=== PATIENT | female | born 1955 | race Caucasian/White ===

== ENCOUNTER 2017-09-27 09:08 | Day surgery (SDC) | payer OTHER, SELFPAY ==
[2017-09-27 09:33] VITALS: BP 113/77; PULSE 79; RESP 16; TEMP 37.4; O2SAT 100; BMI 22.4
[2017-09-27] MEDS: Ciprofloxacin 0.3% 2.5ml Bottle 1 DRP (10:35)
--- NOTE | 2017-09-27 11:04 | DCINST_ITS ---
Discharge Diet: No Restrictions Discharge Activity: Return to Normal Activity Additional Activity Instructions:: Keep ears dry. Allergies/Adverse Reactions: Allergies amoxicillin Adverse Reaction (Verified 09/20/17 09:30) Nausea doxycycline Adverse Reaction (Verified 10/20/15 16:50) Other erythromycin base [Erythromycin Base] Adverse Reaction (Verified 10/20/15 16:50) Nausea hydrocodone bitartrate [From Vicodin] Adverse Reaction (Verified 10/20/15 16:50) Vomiting Sulfa (Sulfonamide Antibiotics) Adverse Reaction (Verified 10/20/15 16:50) Nausea Medications to take at Discharge Calcium Carb/Vitamin D [Caltrate-600 With Vit D Tab] 1 tab PO BIDCM 03/14/13 Fluticasone 0.05% [Flonase Nasal [place]] 2 spray NASAL DAILY 03/14/13 Omeprazole [Prilosec] 20 mg PO DAILY 03/14/13 Montelukast [Singulair] 10 mg PO DAILY 09/23/14 Cholecalciferol (Vitamin D3) [Vitamin D3] 2,000 unit PO DAILY 09/20/17 Primary Care Physician: Vinny Mancilla MD [Primary Care Provider] - Please Follow Up With: Donnie Lindquist MD - [phone] When: 1-2 weeks.
[2017-09-27 11:14] VITALS: BP 113/77; BP 95/72; PULSE 77; RESP 16; TEMP 36.4; O2SAT 100
[2017-09-27 11:15] VITALS: BP 100/74; BP 113/77; PULSE 75; RESP 16; O2SAT 100
[2017-09-27 11:30] VITALS: BP 103/71; BP 113/77; PULSE 77; RESP 16; O2SAT 98
[2017-09-27 11:34] VITALS: BP 107/75; BP 113/77; PULSE 74; RESP 16; TEMP 36.6; O2SAT 98
--- NOTE | 2017-09-27 12:43 | PCM.OP.BLANK ---
Operative Report Date of Procedure: 09/27/17 Preoperative diagnosis: Chronic serous otitis media Postoperative diagnosis: Same Procedure: Right myringotomy with tympanostomy tube placement Anesthesia General per Kylah Erickson CRNA Details of procedure: The patient was transported to the operating room remained on the amatory care cart in the supine position. After the administration of adequate general anesthesia using mask and IV medication, the right ear was examined with the microscope. Obvious serous effusion was present. Upon myringotomy in the anterior inferior aspect fluid was encountered and evacuated. Some ciprofloxacin was rinsed through the middle ear after which a parasol tube was placed uneventfully. This point the procedure was terminated. Patient tolerated the procedure well, did not sustain any intraoperative anesthetic or surgical complication, was taken of the PACU where she was noted to be in satisfactory condition. Donnie Lindquist MD
== END 2017-09-27 12:07 | disposition home or self-care (01) ==
LOC: SDC 09:09 → AC 09:11
PROVIDERS: Family Provider Family Medicine; PCP Family Medicine; Visit Provider Otolaryngology Otolaryngology/Facial Plastic Surgery
PROC: (CPT 69436; principal; 2017-09-27 10:35)
DX: H65.21 Chronic serous otitis media, right ear (principal); H69.81 Other specified disorders of Eustachian tube, right ear; J30.1 Allergic rhinitis due to pollen; J30.81 Allergic rhinitis due to animal (cat) (dog) hair and dander; J30.89 Other allergic rhinitis; K21.9 Gastro-esophageal reflux disease without esophagitis; Z86.718 Personal history of other venous thrombosis and embolism; N18.3 Chronic kidney disease, stage 3 (moderate)
CPT/HCPCS: 00126; 69436; J7120; J2405

== ENCOUNTER 2018-01-07 06:15 | Day surgery (SDC) | payer OTHER, SELFPAY ==
--- NOTE | 2018-01-07 | IMM_PTH ---
PATIENT: NETO CARDOZO LOC: EN U#:[id number] AGE/SX: 62/F ROOM: RE01/07/[address]: Dr. Forrest Hernandez MD : 1955 BED: DIS: 01/07/2018 SPEC #: [id number] RECD: 01/08/18 13:04 STATUS: JEFE YOUNG #: [id number] JOSH: 01/07/18 00:[address]: Forrest Hernandez DEPT: IMMUNOHISTOCHEMISTRY RECD BY: Jenny Bustos ENTERED: 01/08/18 13:04 SP TYPE: IMMUNO OTHR DR: Dr. Vinny Mancilla MD Tissues: B - Stomach, NOS Procedures: H Pylori (initial) PHYSICIAN & INSTITUTION [place] [id number] SPECIMEN INFORMATION: Tissue Source: B ? Polyp of stomach Clinical Info: GERD, history of colon polyps Specimen Number: [id number] CPT code: 79733 METHODOLOGY: Deparaffinized sections of prefer/formalin-fixed tissue or PAP/DQ stained slides are incubated with monoclonal/polyclonal antibodies/oligonucleotide probes. Localization is made via biotin free immunoperoxidase method. Appropriate controls are performed and reacted as expected. Results on target cell population are indicated in the following table: RESULTS: ANTIBODY / CLONE RESULT Block B H Pylori (polyclonal) negative These tests were developed and their performance characteristics determined by [facility]. They may not have been cleared or approved by the U.S. Food and Drug Administration. The FDA has determined that such clearance or approval is not necessary. INTERPRETATION: B. Polyp of stomach, biopsy: Negative for Helicobacter pylori organisms. SJ:rocio 01/09/18
[2018-01-07 06:27] VITALS: BP 115/70; PULSE 92; RESP 14; TEMP 37.2; O2SAT 99; BMI 21.5
--- NOTE | 2018-01-07 07:30 | EGD_PTH ---
PATIENT: NETO CARDOZO LOC: EN U#:[id number] AGE/SX: 62/F ROOM: RE01/07/[address]: Dr. Forrest Hernandez MD : 1955 BED: DIS: 01/07/2018 SPEC #: [id number] RECD: 01/07/18 14:21 STATUS: JEFE YOUNG #: [id number] JOSH: 01/07/18 07:[address]: Forrest Hernandez DEPT: SURGICAL PATHOLOGY RECD BY: Cornelius Bennett ENTERED: 01/07/18 14:46 SP TYPE: EGD [facility] DR: Dr. Vinny Mancilla MD Tissues: A - Small intestine biopsy B - Gastric mucous membrane C - Transverse colon Procedures: Surgery Specimen Level IV HEADER OPERATION: [place] [place] DIAGNOSIS: Gastroesophageal reflux disease, history of colon polyps TISSUE SUBMITTED: A. Biopsy small intestine, B. Polyp of stomach, C. Polyp distal transverse colon MICROSCOPIC DIAGNOSIS A. Small intestine, biopsy: Fragment of small intestinal mucosa, no pathologic diagnosis. B. Polyp of stomach, biopsy: Moderate gastritis. C. Polyp distal transverse colon, biopsy: Tubular adenoma. SJ:rocio 01/08/18 COMMENT B. The results of immunohistochemistry for Helicobacter pylori will be reported separately ([id number]). MICROSCOPIC DESCRIPTION Slides are reviewed. B. The specimen shows fragments of gastric mucosa with chronic inflammatory cell infiltrates in the lamina propria consisting of lymphocytes and plasma cells, consistent with moderate chronic gastritis. GROSS DESCRIPTION A - Received in fixative is one container labeled with the patient's name and designated small bowel biopsy. The specimen consists of one irregular fragment of light fajardo soft tissue that measures 0.5 x 0.3 x 0.1 cm. The specimen is totally submitted in one cassette. B - Received in fixative is one container labeled with the patient's name and designated polyp of stomach. The specimen consists of one irregular fragment of light fajardo soft tissue that measures 0.5 x 0.3 x 0.1 cm. The specimen is totally submitted in one cassette. C - Received in fixative is one container labeled with the patient's name and designated distal transverse colon polyp. The specimen consists of one irregular fragment of light fajardo soft tissue that measures 0.3 x 0.3 x 0.1 cm. The specimen is totally submitted in one cassette. / AM:rocio 01/07/18 TC:1 CPT: 00966 x3
--- NOTE | 2018-01-07 08:01 | PCM.OPRPT ---
Problem List (1) Gastro-esophageal reflux disease without esophagitis Status: Acute (2) History of colonic polyps Status: Acute Report of Operation Date of Procedure: 01/07/18 Pre-Operative Diagnosis: K 21.9 gastroesophageal reflux disease without esophagitis. Z 86.010 history of colonic polyps Post-Operative Diagnosis: Same Surgery/Procedure Performed:: 36648 esophagogastroduodenoscopy with biopsy. 126[address] colonoscopy with snare polypectomy Type of Anesthesia:: MAC Anesthesiologist: Charles Calderon Description of Procedure: Patient was brought into the endoscopy suite. Back of her throat was sprayed with benzocaine spray. Bite-block was placed. She was placed in the left lateral Q's position. Graded anesthesia was given. Scope was inserted in the back of the oropharynx and directed down through the esophagus into the stomach and into the duodenum without difficulty operative findings: 1. Duodenum: Normal appearance no mass lesion biopsy for celiac sprue was performed. 2. Stomach: Normal appearance no mass lesions small polyp was identified in the prepyloric area was removed with biopsy forceps. Rest of the stomach appeared normal there is no signs of erythema no signs of ulcers. 3. Esophagus: Normal appearance no mass lesions Z line was at 37 cm and was normal there was no esophagitis. Colonoscope was inserted into the rectum directed through the sigmoid colon, descending colon, transverse colon, ascending colon tablet to the cecum without difficulty operative findings: 1. Cecum: Normal appearance no mass lesions normal ileocecal valve. 2. Ascending colon: Normal appearance no mass lesions. 3. Transverse colon: Normal appearance no mass lesions. In the distal transverse colon was a small polyp which was removed with snare cautery technique and brought back to the channel of the scope. 5. Sigmoid colon: Normal appearance no mass lesions. 6. Rectum: Normal appearance no mass lesions few internal hemorrhoids were identified. The scope was withdrawn and digital rectal exam was performed showing no masses within the anus. Patient will need to have another colonoscopy in 3 years. - Admit VTE Documentation VTE Present on Admission: No VTE Mechan Device Prophylaxis: None VTE Pharm Prophylaxis ordered?: No Reason prophylaxis not ordered:: Treatment Not Indicated
[2018-01-07 08:04] VITALS: BP 115/70; BP 91/65; PULSE 85; RESP 18; TEMP 36.8; O2SAT 100
[2018-01-07 08:10] VITALS: BP 115/70; BP 98/75; PULSE 85; RESP 18; O2SAT 100
[2018-01-07 08:15] VITALS: BP 115/70; BP 97/67; PULSE 82; RESP 18; O2SAT 99
[2018-01-07 08:20] VITALS: BP 105/77; BP 115/70; PULSE 73; RESP 18; TEMP 36.7; O2SAT 100
[2018-01-07 08:45] VITALS: BP 115/70
== END 2018-01-07 08:49 | disposition home or self-care (01) ==
LOC: EN 06:15 → AC 06:16
PROVIDERS: Family Provider Family Medicine; PCP Family Medicine; Visit Provider Surgery
PROC: 0DJD8ZZ Inspection of Lower Intestinal Tract, Via Natural or Artificial Opening Endoscopic (ICD-10-PCS; CPT 45378; principal; 2018-01-07 07:25)
DX: D12.3 Benign neoplasm of transverse colon (principal); K29.70 Gastritis, unspecified, without bleeding; K21.9 Gastro-esophageal reflux disease without esophagitis; K64.8 Other hemorrhoids; Z86.010 Personal history of colon polyps; I10 Essential (primary) hypertension
CPT/HCPCS: 43239; 45385; 88305; 88342; J7120

== ENCOUNTER 2018-12-12 08:14 | Day surgery (SDC) | payer OTHER, SELFPAY ==
[2018-12-12 08:35] VITALS: BP 114/81; PULSE 87; RESP 16; TEMP 36.9; O2SAT 99; BMI 23.1
[2018-12-12] MEDS: Ciprofloxacin 0.3% 2.5ml Bottle 1 DRP (10:47)
--- NOTE | 2018-12-12 10:51 | DCINST_ITS ---
Discharge Diet: No Restrictions Discharge Activity: Return to Normal Activity Additional Activity Instructions:: Keep ears dry. Allergies/Adverse Reactions: Allergies amoxicillin Adverse Reaction (Verified 12/04/18 13:04) Nausea doxycycline Adverse Reaction (Verified 12/04/18 13:04) Other erythromycin base [Erythromycin Base] Adverse Reaction (Verified 12/04/18 13:04) Nausea hydrocodone bitartrate [From Vicodin] Adverse Reaction (Verified 12/04/18 13:04) Vomiting Sulfa (Sulfonamide Antibiotics) Adverse Reaction (Verified 12/04/18 13:04) Nausea Medications to take at Discharge Calcium Carb/Vitamin D [Caltrate-600 With Vit D Tab] 1 tab PO BIDCM 03/14/13 Fluticasone 0.05% [Flonase Nasal [place]] 2 spray NASAL DAILY 03/14/13 Omeprazole [Prilosec] 20 mg PO DAILY 03/14/13 Montelukast [Singulair] 10 mg PO DAILY 09/23/14 Cholecalciferol (Vitamin D3) [Vitamin D3] 2,000 unit PO DAILY 09/20/17 Primary Care Physician: Vinny Mancilla MD [Primary Care Provider] - Test Results: Test results from this visit will be discussed in further detail at your follow- up appointment, if applicable. Please Follow Up With: Donnie Lindquist MD - [phone] When: 1-2 weeks.
[2018-12-12 10:55] VITALS: BP 114/81; BP 119/84; PULSE 82; RESP 16; TEMP 36.8; O2SAT 97
[2018-12-12 11:00] VITALS: BP 111/83; BP 114/81; PULSE 76; RESP 16; O2SAT 92
[2018-12-12 11:15] VITALS: BP 114/81; BP 124/71; PULSE 79; RESP 16; O2SAT 98
[2018-12-12 11:18] VITALS: BP 114/81; BP 123/83; PULSE 84; RESP 16; O2SAT 100
[2018-12-12 11:40] VITALS: BP 114/81
--- NOTE | 2018-12-12 12:33 | OP.PCM_ITS ---
Report of Operation Date of Procedure: 12/12/18 Pre-Operative Diagnosis: Chronic eustachian tube dysfunction with recurrent acute otitis media/serous otitis media Post-Operative Diagnosis: Same Surgery/Procedure Performed:: Bilateral myringotomy with T-type tympanostomy t ube placement Type of Anesthesia:: General - Mask administration Anesthesiologist: Duc Bailey CRNA Description of Procedure: The patient was transported to the operating room and placed on the OR table in the supine position. After the administration of adequate general mask anesthesia the patient was appropriately positioned and the operating room microscope was utilized to examine the left ear. Previously placed Yip tube was in the canal and was removed. The drum was mildly retracted but no fluid was evident at this time. A myringotomy was created in the anterior inferior aspect. Ciprofloxacin drops were rinsed through the middle ear after which a T- type tube was placed uneventfully. Attention was then directed to the right ear which was examined and treated in similar fashion. In contrast the right ear was notable for serous effusion. Myringotomy was created in the anterior in ferior aspect. After fluid was evacuated ciprofloxacin drops were rinsed through the middle ear and a T-type tube was placed. At this point the procedure was terminated. Patient tolerated the procedure well, did not sustain any intraoperative anesthetic or surgical complication, was taken to the PACU where she was noted to be in satisfactory condition. Donnie Lindquist MD
== END 2018-12-12 11:57 | disposition home or self-care (01) ==
LOC: SDC 08:15 → AC 08:17
PROVIDERS: Family Provider Family Medicine; PCP Family Medicine; Referring Provider Otolaryngology Otolaryngology/Facial Plastic Surgery; Visit Provider Otolaryngology Otolaryngology/Facial Plastic Surgery
PROC: (CPT 69436; principal; 2018-12-12 09:45)
DX: H69.83 Other specified disorders of Eustachian tube, bilateral (principal); H65.21 Chronic serous otitis media, right ear; K21.9 Gastro-esophageal reflux disease without esophagitis; N18.3 Chronic kidney disease, stage 3 (moderate); Z86.718 Personal history of other venous thrombosis and embolism
CPT/HCPCS: 00126; 69436

== ENCOUNTER 2020-08-05 12:14 | Outpatient (RCR) | payer MEDICARE, OTHER, SELFPAY ==
[2020-08-05] MEDS: COVID-19 VACC, MRNA(PFIZER)/PF 30 MCG/0.3 ML SYRINGE IM (16:51)
[2020-08-26] MEDS: COVID-19 VACC, MRNA(PFIZER)/PF 30 MCG/0.3 ML SYRINGE IM (16:30)
== END 2020-11-09 23:59 ==
LOC: IMMUN 12:14
PROVIDERS: PCP Family Medicine; Visit Provider Family Medicine
DX: Z23 Encounter for immunization (principal)
CPT/HCPCS: 0001A; 0002A; 91300

== ENCOUNTER → 2021-03-30 16:27 | Outpatient (CLI) | payer MEDICARE, OTHER, SELFPAY ==
[2021-03-30 18:10] LABS: Ferritin 42 ng/mL (8-252); Iron 60 ug/dL (50-170); Iron Binding Capacity,Total 288 ug/dL (250-450); PERCENT IRON SATURATION 20.8 % (15.0-55.0)
== END ==
PROVIDERS: PCP Family Medicine; Visit Provider Internal Medicine Nephrology
DX: D64.9 Anemia, unspecified (principal)
CPT/HCPCS: 36415; 82728; 83540; 83550

== ENCOUNTER → 2021-11-17 | Outpatient (CLI) | payer MEDICARE, OTHER, SELFPAY ==
[2021-11-17 13:09] LABS: Hematocrit 37.1 % (37-47); Hemoglobin 11.9 g/dL (12.0-15.0); Mean Corp Hgb Conc 32.1 g/dL (32-36); Mean Corpuscular Volume 93.5 fL (81-99); Mean Platelet Vol. 9.9 fl (6.2-12.0); Platelet Count 271 K/mm3 (150-450); RBC Distribution Width CV 13.1 % (11.6-14.6); RBC Distribution Width SD 44.6 fl (35.1-43.9); Red Blood Count 3.97 M/mm3 (4.2-5.4); White Blood Count 8.3 K/mm3 (4.4-11.0)
[2021-11-17 13:37] LABS: Albumin, Serum 3.4 g/dL (3.2-5.0); BUN 21 mg/dL (7-18); BUN/Creat Ratio 15.3 RATIO (10-20); Calcium,Total 9.2 mg/dL (8.5-10.1); Chloride 107 mmol/L (98-107); Creatinine, Serum 1.37 mg/dL (0.55-1.02); EST Glomerular Filtration Rate 41 mL/min (>60); Est Glom Filt Rate - Afr Amer 49 mL/min (>60); Glucose 91 mg/dL (74-106); Phosphorus 4.3 mg/dL (2.5-4.9); Sodium Level 138 mmol/L (136-145)
== END | disposition home or self-care (01) ==
LOC: LAB 12:29
PROVIDERS: PCP Family Medicine; Referring Provider Internal Medicine Nephrology; Visit Provider Internal Medicine Nephrology
DX: N18.30 Chronic kidney disease, stage 3 unspecified (principal); D64.9 Anemia, unspecified
CPT/HCPCS: 36415; 80069; 85027

== ENCOUNTER → 2022-03-17 | Outpatient (CLI) | payer MEDICARE, OTHER, SELFPAY ==
[2022-03-20 08:51] LABS: Syphilis Antibodies Non-reactive
[2022-03-21 13:26] LABS: B. pertussis IgG 1.99 index (0.00-0.94)
[2022-03-21 13:27] LABS: B. pertussis IgM 3.4 index (0.0-0.9)
[2022-03-23 11:02] LABS: Lyme Ab Screen Interpretation REF LAB
[2022-03-26 15:39] LABS: Lyme Scn Total Ab w/Rflx Negative (Negative)
== END | disposition home or self-care (01) ==
LOC: MTLAB 16:48
PROVIDERS: PCP Family Medicine; Referring Provider Physician Assistant; Visit Provider Physician Assistant
DX: L82.1 Other seborrheic keratosis (principal); L81.4 Other melanin hyperpigmentation; D18.01 Hemangioma of skin and subcutaneous tissue; L57.8 Other skin changes due to chronic exposure to nonionizing radiation; L30.9 Dermatitis, unspecified; D48.5 Neoplasm of uncertain behavior of skin; L90.5 Scar conditions and fibrosis of skin; L72.0 Epidermal cyst; I83.93 Asymptomatic varicose veins of bilateral lower extremities; Z71.89 Other specified counseling
CPT/HCPCS: 36415; 86618; 86780

== ENCOUNTER → 2022-11-22 | Outpatient (CLI) | payer MEDICARE, OTHER, SELFPAY ==
[2022-11-22 07:11] LABS: Hematocrit 39.4 % (37-47); Hemoglobin 12.2 g/dL (12.0-15.0); Mean Corpuscular Volume 93.6 fL (81-99); Mean Platelet Vol. 9.9 fl (6.2-12.0); Platelet Count 296 K/mm3 (150-450); RBC Distribution Width CV 14.8 % (11.6-14.6); RBC Distribution Width SD 51.3 fl (35.1-43.9); Red Blood Count 4.21 M/mm3 (4.2-5.4); White Blood Count 5.7 K/mm3 (4.4-11.0)
[2022-11-22 07:49] LABS: Albumin, Serum 3.5 g/dL (3.2-5.0); BUN 13 mg/dL (7-18); BUN/Creat Ratio 9.6 RATIO (10-20); Calcium,Total 9.6 mg/dL (8.5-10.1); Chloride 108 mmol/L (98-107); Creatinine, Serum 1.35 mg/dL (0.55-1.02); EST Glomerular Filtration Rate 41 mL/min (>60); Est Glom Filt Rate - Afr Amer 50 mL/min (>60); Ferritin 35 ng/mL (8-252); Glucose 84 mg/dL (74-106); Iron 71 ug/dL (50-170); Iron Binding Capacity,Total 315 ug/dL (250-450); Phosphorus 4.1 mg/dL (2.5-4.9); Potassium 3.9 mmol/L (3.5-5.1); Sodium Level 139 mmol/L (136-145)
== END | disposition home or self-care (01) ==
LOC: LAB 06:15
PROVIDERS: PCP Family Medicine; Referring Provider Internal Medicine Nephrology; Visit Provider Internal Medicine Nephrology
DX: N18.30 Chronic kidney disease, stage 3 unspecified (principal); D50.9 Iron deficiency anemia, unspecified
CPT/HCPCS: 36415; 80069; 82728; 83540; 83550; 85027

== ENCOUNTER → 2022-12-15 | Outpatient (CLI) | payer MEDICARE, OTHER, SELFPAY ==
--- NOTE | 2022-12-15 06:55 | EKG12_ITS ---
Test Reason : PREOP Blood Pressure : / mmHG Vent. Rate : 082 BPM Atrial Rate : 082 BPM P-R Int : 162 ms QRS Dur : 102 ms QT Int : 388 ms P-R-T Axes : 040 -48 077 degrees QTc Int : 453 ms Normal sinus rhythm Left axis deviation Left ventricular hypertrophy with repolarization abnormality Abnormal ECG Confirmed by EMMANUEL SINGLETARY, LOUANN ([id number]), writer editor YESSENIA FRANK ([id number]) on 12/15/2022 12:55:35 PM Referred By: Cole Davenport Confirmed By:LOUANN BENITEZ MD
[2022-12-15 07:35] LABS: Hematocrit 37.4 % (37-47); Hemoglobin 11.8 g/dL (12.0-15.0); Mean Corp Hgb Conc 31.6 g/dL (32-36); Mean Corpuscular Hgb 29.5 pg (27.0-32.0); Mean Corpuscular Volume 93.5 fL (81-99); Mean Platelet Vol. 9.8 fl (6.2-12.0); Platelet Count 246 K/mm3 (150-450); RBC Distribution Width CV 14.8 % (11.6-14.6); RBC Distribution Width SD 51.1 fl (35.1-43.9); White Blood Count 6.3 K/mm3 (4.4-11.0)
[2022-12-15 08:10] LABS: Anion Gap 3 (5-15); BUN 28 mg/dL (7-18); Chloride 110 mmol/L (98-107); Creatinine, Serum 1.47 mg/dL (0.55-1.02); EST Glomerular Filtration Rate 38 mL/min (>60); Est Glom Filt Rate - Afr Amer 45 mL/min (>60); Glucose 92 mg/dL (74-106); Potassium 3.8 mmol/L (3.5-5.1); Sodium Level 139 mmol/L (136-145)
== END | disposition home or self-care (01) ==
LOC: PSN 06:54
PROVIDERS: PCP Family Medicine; Referring Provider Otolaryngology; Visit Provider Otolaryngology
DX: Z01.818 Encounter for other preprocedural examination (principal)
CPT/HCPCS: 36415; 80048; 85027; 93005

== ENCOUNTER 2023-05-24 20:02 | Inpatient (IN) | payer MEDICARE, OTHER, SELFPAY ==
[2023-05-24] VITALS (7 sets, daily range): BP systolic 98–108; BP diastolic 60–69; PULSE 90–114; RESP 18–24; TEMP 36.6; O2SAT 87–93; BMI 22.8
--- NOTE | 2023-05-24 20:05 | EKG12_ITS ---
Test Reason : SOB Blood Pressure : / mmHG Vent. Rate : 094 BPM Atrial Rate : 094 BPM P-R Int : 158 ms QRS Dur : 126 ms QT Int : 384 ms P-R-T Axes : 019 -47 092 degrees QTc Int : 480 ms Normal sinus rhythm Left axis deviation Left ventricular hypertrophy with QRS widening and repolarization abnormality ( R in aVL , Gautam pr oduct ) Abnormal ECG Confirmed by EMMANUEL SINGLETARY, LOUANN ([id number]), copy editor YESSENIA FRANK ([id number]) on 05/25/2023 2:07:52 PM Referred By: Confirmed By:LOUANN BENITEZ MD
--- NOTE | 2023-05-24 20:14 | RAD_ITS ---
INDICATION: SOB EXAMINATION/TECHNIQUE: X-RAY - XR Chest 1 View COMPARISON: October 20, 2015 FINDINGS: LINES/DEVICES: None. LUNGS: Mild basilar infiltrate/atelectasis bilaterally, left more than right. No pneumothorax. MEDIASTINUM AND CARDIOVASCULAR STRUCTURES: Cardiac silhouette not enlarged. Central airways and mediastinal contour are unremarkable. BONES AND SOFT TISSUES: Unremarkable. RAD/Chest 1 View (Portable) IMPRESSION: Mild basilar infiltrate/atelectasis bilaterally, left more than right. Electronically Signed: Xander Fraire DO at 20:31 EST Reading Location ID and State: [facility] / [place] Tel [phone], Service support ,
[2023-05-24 20:55] LABS: Hematocrit 34.3 % (37-47); Hemoglobin 11.5 g/dL (12.0-15.0); Mean Corp Hgb Conc 33.5 g/dL (32-36); Mean Corpuscular Hgb 28.8 pg (27.0-32.0); Mean Platelet Vol. 10.2 fl (6.2-12.0); POSITIVE COUNT YES; POSITIVE MORPHOLOGY YES; Platelet Count 234 K/mm3 (150-450); RBC Distribution Width CV 14.1 % (11.6-14.6); RBC Distribution Width SD 44.2 fl (35.1-43.9); Red Blood Count 3.99 M/mm3 (4.2-5.4)
[2023-05-24 21:19] LABS: Anion Gap 8 (5-15); BUN 23 mg/dL (7-18); BUN/Creat Ratio 11.8 RATIO (10-20); Calcium,Total 8.8 mg/dL (8.5-10.1); Chloride 98 mmol/L (98-107); Creatinine, Serum 1.95 mg/dL (0.55-1.02); EST Glomerular Filtration Rate 27 mL/min (>60); Est Glom Filt Rate - Afr Amer 33 mL/min (>60); Estimated Creatinine Clearance 25.49 ml/min; Glucose 108 mg/dL (74-106); Sodium Level 128 mmol/L (136-145); Troponin-I HS 25 pg/mL (3.0-54.0)
[2023-05-24 21:48] LABS: Differential Indicated MANUAL DIFF; Lymphocyte 6 % (19-41); Monocyte 14 % (0-10); Neutrophil-Band 10 % (0-5); Neutrophil-Segmented 70 % (47-70)
[2023-05-24 21:49] LABS: Absolute Lymphocyte Count 0.78 X10^3/uL (0.83-4.51); Absolute Neutrophil Count 10.4 X10^3/uL (2.0-7.7)
--- NOTE | 2023-05-24 22:23 | ED.RN ---
2040 repeat pulse ox 92 percent.
--- NOTE | 2023-05-24 22:27 | ED.VIS.DYS ---
HPI History of Present Illness Chief Complaint: Shortness of Breath Informant: patient Onset/Context/Timing Onset: Days (5) Timing: Continuous Quality: Positive for Dyspnea on exertion Worsened by: Exertion Relieved by: Rest Associated Symptoms cough; Negative for rhinorrhea, post nasal drip, ear pain, fever, sore throat, chills, clear sputum, white sputum, yellow sputum or green sputum Chest Pain: Positive for None Narrative Narrative: Patient presents with shortness of breath that has been getting worse over the last 5 days. Patient states it is gradually getting worse. Patient states her breathing is worse with any exertion. Patient states she is having difficulty walking from the kitchen to the living room without having to stop and catch her breath. Patient admits to a cough but denies any sputum production. Patient denies any fevers or chills. Patient denies any sore throat or rhinorrhea. Patient denies any chest pain. Patient does admit to some nausea but denies any vomiting. PE Risk Factors: Negative for Cancer, OCP + Smoking + > 35, Prior DVT or PE, Recent immobilization, Recent surgery or Recent travel [facility] Medical History (Updated 05/25/23 @ 02:[address] Steve Woods, DO) GERD (gastroesophageal reflux disease) Hemorrhoid HTN (hypertension) Mixed hyperlipidemia Osteoarthritis Sjogren's disease Home Medications calcium carbonate 600 mg-vitamin D3 20 mcg (800 unit) tablet 1 tab PO BIDCM 03/14/13 [History Last Taken 09/26/17] fluticasone propionate 50 mcg/actuation nasal spray,suspension 2 spray NASAL DAILY 03/14/13 [History Last Taken 09/26/17] omeprazole 20 mg capsule,delayed release 20 mg PO DAILY 03/14/13 [History Last Taken 12/12/18 06:00] montelukast 10 mg tablet 10 mg PO DAILY ALLERGIES 09/23/14 [History Last Taken 09/26/17] cholecalciferol (vitamin D3) 50 mcg (2,000 unit) capsule 2,000 unit PO DAILY 09/20/17 [History Last Taken 09/26/17] hydroxychloroquine 200 mg tablet 200 mg PO DAILY 05/24/23 [History Last Taken Unknown] Allergy/AdvReac Type Severity Reaction Status Date / Time amoxicillin AdvReac Nausea Verified 05/24/23 20:05 doxycycline AdvReac Other Verified 05/24/23 20:05 erythromycin base AdvReac Nausea Verified 05/24/23 20:05 [Erythromycin Base] hydrocodone bitartrate AdvReac Vomiting Verified 05/24/23 20:05 [From Vicodin] Sulfa (Sulfonamide AdvReac Nausea Verified 05/24/23 20:05 Antibiotics) Family History Mother Breast cancer Colon cancer Cancer skin CVA (cerebral vascular accident) Father CHF (congestive heart failure) Sister Colon cancer Surgical History S/P cholecystectomy S/P colonoscopy S/P ectopic S/P tubal ligation Social History Smoking Status: Never smoker ROS ROS ED Constitutional Constitutional ED: Denies chills or fever(s) Eyes Eyes: Denies blurry vision or change in vision ENT ENT ED: Denies rhinorrhea or sore throat Cardiovascular Cardiovascular: Denies chest pain or palpitations Respiratory/Chest Respiratory/Chest: Reports cough and dyspnea Gastrointestinal Gastrointestinal: Reports nausea; Denies vomiting Genitourinary Genitourinary ED: Denies dysuria or hematuria Musculoskeletal Musculoskeletal: Reports back pain; Denies neck pain Integumentary Denies abscess or rash Neurologic Neurologic: Denies headache(s) or weakness Allergic/Immunologic Allergic/Immunologic ED: Denies mouth swelling or urticaria EXAM Physical Exam Const Vital Signs: 05/24/23 20:02 05/24/23 22:03 05/24/23 22:03 Temperature 97.9 F Temperature Source Temporal Pulse Rate 114 H Respiratory Rate 18 22 H Respiratory Effort Respiratory Pattern Blood Pressure 99/60 Blood Pressure Mean 73 Pulse Ox 92 92 92 Oxygen Delivery Method Room Air Room Air Room Air Oxygen Flow Rate (L/min) 05/24/23 22:40 05/24/23 22:42 05/24/23 22:49 Temperature Temperature Source Pulse Rate 94 90 Respiratory Rate 24 H 18 Respiratory Effort Short of Breath Respiratory Pattern Tachypnea Normal Blood Pressure 108/68 Blood Pressure Mean 81 Pulse Ox 91 Oxygen Delivery Method Room Air Nasal Cannula Oxygen Flow Rate (L/min) 05/24/23 23:46 05/24/23 23:47 05/25/23 02:45 Temperature Temperature Source Pulse Rate 100 97 104 H Respiratory Rate 22 H 22 H 23 H Respiratory Effort Respiratory Pattern Blood Pressure 98/61 105/69 107/68 Blood Pressure Mean 73 81 81 Pulse Ox 87 93 93 Oxygen Delivery Method Room Air Nasal Cannula Nasal Cannula Oxygen Flow Rate (L/min) 2 2 MDM MDM MDM Narrative Medical decision making narrative: Differential diagnosis includes pneumonia, pneumothorax, congestive heart failure, viral upper respiratory infection, bronchitis, and pulmonary embolism. EKG will be obtained to assess for cardiac dysrhythmia and cardiac ischemia. Chest x-ray will be obtained to assess for pneumonia and pneumothorax. CBC will be obtained to assess for leukocytosis and anemia. Basic metabolic profile will be obtained to assess for electrolyte abnormality and renal function. High-sensitivity troponin will be obtained to assess for cardiac ischemia. COVID-19 rapid antigen will be obtained to assess for COVID-19 infection. D-dimer will be obtained to assess for pulmonary embolism. Lactate will be obtained to assess for sepsis. Blood cultures will be obtained to assess for sepsis. Lab Data Lab results narrative: CBC was reviewed. There is a mild leukocytosis of 13.0. Hemoglobin was 11.5 and hematocrit 34.3. Platelets were normal. Basic metabolic profile was reviewed. Sodium was slightly low at 128 and potassium was 3.0. BUN was 23 and creatinine was 1.95. These are slightly increased from previous results. High-sensitivity troponin was reviewed and was normal at 25. COVID-19 rapid antigen was reviewed and was negative. Lactate was reviewed and was normal at 1.4. D-dimer was reviewed and was elevated at 2.4. Labs: Laboratory Results - last 24 hr 05/24/23 05/24/23 20:41 23:43 WBC 13.0 H RBC 3.99 L Hgb 11.5 L Hct 34.3 L MCV 86.0 MCH 28.8 MCHC 33.5 RDW Std Deviation 44.2 H RDW Coeff of Casey 14.1 Plt Count 234 MPV 10.2 Immature Gran % (Auto) PET AMBASSADOR Neut % (Auto) PET AMBASSADOR Lymph % (Auto) PET AMBASSADOR Navarro % (Auto) PET AMBASSADOR Eos % (Auto) PET [place]BASSADOR Baso % (Auto) PET [place]BASS[place]OR Absolute Neuts (auto) 10.4 H Absolute Lymphs (auto) 0.78 L Neutrophils % (Manual) 70 Band Neutrophils % 10 H Lymphocytes % (Manual) 6 L Monocytes % (Manual) 14 H Nucleated RBC % PET AMBASSADOR Diff Path Review May foll D-Dimer Quant (PE/DVT) 2.40 H* Sodium 128 L Potassium 3.0 L Chloride 98 Carbon Dioxide 22.0 Anion Gap 8 BUN 23 H Creatinine 1.95 H Estim Creat Clear Calc 25.49 Est GFR (MDRD) Af Amer 33 L Est GFR (MDRD) Non-Af 27 L BUN/Creatinine Ratio 11.8 Glucose 108 H Lactic Acid 1.4 Calcium 8.8 Troponin I High Sens 25 Radiography Diagnostic Testing: Clinical Impression(s) from Imaging Studies Chest X-Ray 05/24/23 20:14 IMPRESSION: Mild basilar infiltrate/atelectasis bilaterally, left more than right. Electronically Signed: Xander Fraire DO at 20:31 EST , Chest CTA 05/24/23 23:59 IMPRESSION: 1. Findings of extensive bilateral lower lobe pneumonia, with lesser pneumonia in the upper lobes and right middle lobe. 2. Negative for PE. 3. Mild hilar or mediastinal adenopathy. 4. 2.2 solid mass of the right renal upper pole, most likely a small renal cell carcinoma. Urology follow-up suggested. 5. 1 cm lucent lesion within the T11 vertebral body, not definitely a benign cavernous hemangioma and correlation with bone scan or MR may be of benefit to evaluate for metastatic disease 6. Peribronchial cuffing indicating bronchial wall inflammation. Mild bilateral bronchiectasis. Nonstandard communication protocol initiated. Electronically Signed: Sandeep Lopez MD at 2:33 EST , ADDENDUM: 05/25/23 0242 IMPRESSION: 1. Findings of extensive bilateral lower lobe pneumonia, with lesser pneumonia in the upper lobes and right middle lobe. 2. Negative for PE. 3. Mild hilar or mediastinal adenopathy. 4. 2.2 solid mass of the right renal upper pole, most likely a small renal cell carcinoma. Urology follow-up suggested. 5. 1 cm lucent lesion within the T11 vertebral body, not definitely a benign cavernous hemangioma and correlation with bone scan or MR may be of benefit to evaluate for metastatic disease 6. Peribronchial cuffing indicating bronchial wall inflammation. Mild bilateral bronchiectasis. Nonstandard communication protocol initiated. N.B. : The above Results were Read Back by Sandeep Lopez MD to Steve Woods MD, and understanding confirmed on 05/25/2023 02:35:39 (ET). Electronically Signed: Sandeep Lopez MD at 2:33 EST , Chest x-ray was obtained. On my independent interpretation, there are bibasilar infiltrates, worse on the left. There is no cardiomegaly noted. Bony thorax is normal. There is no pneumothorax noted. Radiologist also interpreted the x-ray and agrees. Because of the elevated D-dimer, CTA of the chest was obtained. There is no evidence of pulmonary embolism or aortic dissection. There is bilateral lower lobe pneumonia and lesser pneumonia in the upper lobes and right middle lobe. There is also a 2.2 cm solid mass in the right renal upper pole that requires urology follow-up. There is also a 1 cm lucent lesion in the T11 vertebral body it could be a cavernous hemangioma or metastatic disease. This was interpreted by the radiologist was also independently reviewed by myself. EKG Initial EKG: Attestation: I personally reviewed and interpreted this EKG as follows: Interpretation: Sinus Rhythm and Non-Specific ST Changes Comments: EKG was obtained. On my independent interpretation, it shows normal sinus rhythm with a rate of 94. [place] interval is normal at 158 ms. QRS interval was slightly prolonged at 126 ms. QTc interval was 480 ms. There is left axis deviation at -47. There are nonspecific ST-T wave changes and left ventricular hypertrophy. This was unchanged compared to previous EKG dated 12/15/2022. Prior EKG tracings: available for review Prior: Unchanged (12/15/2022) Treatment and Re-Evaluation :: Patient was given a DuoNeb aerosol here. Patient was feeling somewhat better on reevaluation. Patient was now able to talk in complete sentences without dyspnea. Patient was advised of her findings. Patient was started on Rocephin and Zithromax. Case was discussed with the hospitalist for admission. He will admit the patient to [facility]. Patient understood and was agreeable with the plan. All questions were answered. Discharge Plan Dx/Rx/DC Orders Clinical Impression: Hypoxia, Pneumonia, Right renal mass Disposition Disposition: Acute Care Hospital [facility]
[2023-05-24] MEDS: Ipratropium/Albuterol Sulfate 3 ML AMPUL.NEB INHALATION (22:48)
--- NOTE | 2023-05-24 23:59 | CT_ITS ---
We are attempting to reach an attending provider to discuss findings. An addendum with communication details will be sent when the communication is complete. EXAM: CT ANGIOGRAPHY CHEST WITHOUT AND WITH INTRAVENOUS CONTRAST CLINICAL INDICATION: Elevated D-dimer TECHNIQUE: Helically acquired angiography images were obtained of the chest without and with intravenous contrast. This CT exam was performed using one or more of the following dose reduction techniques: automated exposure control, adjustment of the mA and/or kV according to patient size, and/or use of iterative reconstruction technique. MIP reconstructed images were created and reviewed. CONTRAST: IV 100mL [id number] RADIATION DOSE: Total DLP: 330.02 mGy-cm. COMPARISON: Portable chest radiograph of 05/24/2023. FINDINGS: PULMONARY ARTERIES: Unremarkable. Normal in caliber. No evidence of pulmonary embolism. AORTA: There is fusiform dilatation of the ascending thoracic aorta which measures 3.9 cm in transverse diameter, as can be seen with aortic valvular disease. Aortic arch and descending thoracic aorta are normal caliber. No intimal flap. GREAT VESSELS OF AORTIC ARCH: Unremarkable. Normal in caliber. No evidence of dissection. LUNGS AND PLEURAL SPACES: Very mild patchy airspace disease noted posteriorly within the right upper lobe, within the right middle lobe and in the right perihilar region. Extensive patchy airspace disease noted within the right lower lobe, greatest within its dependent portion. Minimal airspace disease noted anteriorly and posteriorly within the left upper lobe. Traction bronchiectasis noted within the lingula. Extensive patchy airspace disease noted throughout the left lower lobe as on the right. Peribronchial cuffing is present indicating bronchial wall inflammation. Mild bronchiectasis noted bilaterally. No cavitary pulmonary lesions. No pleural effusion. No pulmonary interstitial thickening. HEART: Coronary artery calcification is present. No significant pericardial effusion. MEDIASTINUM: Esophagus is unremarkable. No hiatal hernia. Normal sized superior mediastinal lymph nodes. Slightly enlarged pretracheal node measuring 11 mm in short axis diameter. Enlarged subcarinal nodes are present. A slightly enlarged left hilar lymph node is also noted. THYROID: Unremarkable. No thyroid lesions. BONES/JOINTS: Lower cervical degenerative disc disease. Thoracic degenerative spurring. Within the posterior left side of the T11 vertebral body is a 10 mm rounded ill-defined lucent focus, without cortical destruction. No suspicious lytic or blastic abnormality. INTRAPERITONEAL SPACE: Visualized liver demonstrates fatty infiltration. Visualized adrenal glands and left kidney are unremarkable. At the upper pole of the right kidney is a 3 cm simple cyst. Projecting medially from the upper pole of the right kidney is a 2.2 cm rounded isodense/solid nodule. No pneumoperitoneum is noted. CT/CTA Chest W/WO Contrast IMPRESSION: 1. Findings of extensive bilateral lower lobe pneumonia, with lesser pneumonia in the upper lobes and right middle lobe. 2. Negative for PE. 3. Mild hilar or mediastinal adenopathy. 4. 2.2 solid mass of the right renal upper pole, most likely a small renal cell carcinoma. Urology follow-up suggested. 5. 1 cm lucent lesion within the T11 vertebral body, not definitely a benign cavernous hemangioma and correlation with bone scan or MR may be of benefit to evaluate for metastatic disease 6. Peribronchial cuffing indicating bronchial wall inflammation. Mild bilateral bronchiectasis. Nonstandard communication protocol initiated. Electronically Signed: Sandeep Lopez MD at 2:33 EST ,
[2023-05-25] VITALS (20 sets, daily range): BP systolic 91–115; BP diastolic 50–69; PULSE 24–104; RESP 12–24; TEMP 35.7–37.1; O2SAT 6–100; BMI 22.5
[2023-05-25] MEDS: 0.9% Normal Saline (1000mL) 1,000 ML 1000 ML IV (00:19)
[2023-05-25 00:20] LABS: Lactic Acid 1.4 mmol/L (0.4-1.9)
--- NOTE | 2023-05-25 02:54 | PCM.HP.STD ---
[facility] - General General Date of Admission: 05/25/23 Date of Service: 05/25/23 Chief Complaint: Shortness of breath HPI Narrative NETO ARBOLEDA, is a 68 F a past medical history of essential hypertension, hyperlipidemia, history of Sjogren's syndrome; on hydroxychloroquine, history of cholecystectomy, remote history of ectopic ; status post tubal ligation, history of colonoscopy, GERD, osteoarthritis and a strong positive family history of breast, colon and skin cancer in her mother and colon cancer in her sister who presents to [facility] [place] [facility] complaining of shortness of breath. Ms. Arboleda reports her symptoms began approximately 5 days prior to admission with a gradual onset of dyspnea on exertion that progressed to shortness of breath with minimal activity. She states she is having difficulty walking from her kitchen to her living room without having to stop and catch her breath which is new and concerning for her. She also admits to an associated cough but denies any sputum production. She also denies related fever, chills, sore throat, rhinorrhea, chest pain, vomiting, recent surgery, recent immobility, or recent injury but she does admit to some nausea. The patient's sister was at the bedside and she did help to augment the history. In the ER her CTA of the chest was negative for PE but did reveal evidence of extensive bilateral pneumonia of both lower lobes that is likely community-acquired in origin with leukocytosis of 13 present on admission complicated by incidentally noted ~2.2 centimeter mass in the upper pole of the Right kidney system with a high index of suspicion for renal cell carcinoma (with urology consultation recommended) compounded by an ~1 cm lucent lesion within the T11 vertebral body also suspicious for possible metastatic disease along with laboratory evidence of acute kidney injury; with a serum creatinine of 1.95 mg deciliter present on admission and a BUN of 23 mg/dL present on admission (up from her baseline level of 1.4 mg/dL and a BUN of 28 mg/dL on labs done in January 2023) along with hypokalemia of 3 mmol/L and hyponatremia of 128 mmol/L present on admission as she was noted to have an elevated D-dimer of 2.4 present on admission with lower extremity doppler pending in the a.m. to evaluate for possible underlying DVT and she was then admitted to the general medical floor for ongoing care for a stay that is expected to be greater than 48 hours. [facility] Medical History (Updated 05/25/23 @ 06:[address] Darius Garcia DO) GERD (gastroesophageal reflux disease) Hemorrhoid HTN (hypertension) Mixed hyperlipidemia Osteoarthritis Sjogren's disease Home Medications calcium carbonate 600 mg-vitamin D3 20 mcg (800 unit) tablet 1 tab PO BIDCM 03/14/13 [History Last Taken 09/26/17] fluticasone propionate 50 mcg/actuation nasal spray,suspension 2 spray NASAL DAILY 03/14/13 [History Last Taken 09/26/17] omeprazole 20 mg capsule,delayed release 20 mg PO DAILY 03/14/13 [History Last Taken 12/12/18 06:00] montelukast 10 mg tablet 10 mg PO DAILY ALLERGIES 09/23/14 [History Last Taken 09/26/17] cholecalciferol (vitamin D3) 50 mcg (2,000 unit) capsule 2,000 unit PO DAILY 09/20/17 [History Last Taken 09/26/17] hydroxychloroquine 200 mg tablet 200 mg PO DAILY 05/24/23 [History Last Taken Unknown] Allergy/AdvReac Type Severity Reaction Status Date / Time amoxicillin AdvReac Nausea Verified 05/24/23 20:05 doxycycline AdvReac Other Verified 05/24/23 20:05 erythromycin base AdvReac Nausea Verified 05/24/23 20:05 [Erythromycin Base] hydrocodone bitartrate AdvReac Vomiting Verified 05/24/23 20:05 [From Vicodin] Sulfa (Sulfonamide AdvReac Nausea Verified 05/24/23 20:05 Antibiotics) Family History Mother Breast cancer Colon cancer Cancer skin CVA (cerebral vascular accident) Father CHF (congestive heart failure) Sister Colon cancer Surgical History S/P cholecystectomy S/P colonoscopy S/P ectopic S/P tubal ligation Social History Smoking Status: Never smoker ROS ROS Narrative Review of systems: Constitutional: Patient denies fevers or chills. Eyes: Patient denies blurry vision or discharge from eyes. ENT: Patient denies runny nose or sore throat. Cardiovascular: Patient denies chest pain or palpitations. Respiratory: Patient admits to cough and shortness of breath with wheezing. Gastrointestinal: Patient admits to nausea but denies vomiting or diarrhea. Genitourinary: Patient denies dysuria, hematuria or urinary frequency. Musculoskeletal: Patient admits to back pain but denies neck pain. Integumentary: Patient denies abscess or rash. Neurologic: Patient denies headache, dizziness or focal neurologic weakness. Allergic: Patient denies lip swelling, tongue swelling or urticaria. Psychiatric: Patient does admit to anxiety about her declining health. 14 point review systems otherwise negative except for positives noted above in HPI. Vital Signs Vital Signs Vital Signs: 05/24/23 20:02 05/24/23 22:03 05/24/23 22:03 Temperature 97.9 F Temperature Source Temporal Pulse Rate 114 H Respiratory Rate 18 22 H Respiratory Effort Respiratory Pattern Blood Pressure 99/60 Blood Pressure Mean 73 Pulse Ox 92 92 92 Oxygen Delivery Method Room Air Room Air Room Air Oxygen Flow Rate (L/min) 05/24/23 22:40 05/24/23 22:42 05/24/23 22:49 Temperature Temperature Source Pulse Rate 94 90 Respiratory Rate 24 H 18 Respiratory Effort Short of Breath Respiratory Pattern Tachypnea Normal Blood Pressure 108/68 Blood Pressure Mean 81 Pulse Ox 91 Oxygen Delivery Method Room Air Nasal Cannula Oxygen Flow Rate (L/min) 05/24/23 23:46 05/24/23 23:47 05/25/23 02:45 Temperature Temperature Source Pulse Rate 100 97 104 H Respiratory Rate 22 H 22 H 23 H Respiratory Effort Respiratory Pattern Blood Pressure 98/61 105/69 107/68 Blood Pressure Mean 73 81 81 Pulse Ox 87 93 93 Oxygen Delivery Method Room Air Nasal Cannula Nasal Cannula Oxygen Flow Rate (L/min) 2 2 Weight Weight: 141 lb 7 oz Body Mass Index (BMI) 22.8 Physical Exam Const alert, oriented x3 and average body habitus Constitutional Narrative: Patient appears chronically ill with labored respirations. General Appearance: cooperative HEENT normocephalic, head/scalp atraumatic and hearing grossly normal bilaterally HEENT Narrative: Oropharynx dry. Eyes PERRL and EOMs intact bilaterally Neck no lymphadenopathy and supple Resp Resp Narrative: Diminished breath sounds throughout with scattered rhonchi. Auscultation: rhonchi Cardio regular rate and regular rhythm GI normal to inspection, nondistended, normoactive bowel sounds, soft to palpation, non-tender and non-distended Extremity normal to inspection, full ROM and no clubbing, cyanosis or edema Neuro oriented x3, CN's II-XII intact bilaterally, moves all extremities and no focal motor deficits Sensorium / Orientation: awake, alert, oriented to person, oriented to place and oriented to time Speech: speech normal Motor Exam: strength 5/5 throughout Results Medical Records Data Attestation: I reviewed the patient's medical records Lab / Micro Data Attestation: I reviewed the patient's lab results. 05/24/23 20:41 05/24/23 20:41 Labs: Laboratory Results - last 24 hr 05/24/23 20:41: WBC 13.0 H, RBC 3.99 L, Hgb 11.5 L, Hct 34.3 L, MCV 86.0, MCH 28.8, MCHC 33.5, RDW Std Deviation 44.2 H, RDW Coeff of [place] 14.1, Plt Count 234, MPV 10.2, Immature Gran % (Auto) [employer], Neut % (Auto) [employer], Lymph % (Auto) [employer], [place] % (Auto) [employer], Eos % (Auto) [employer], Baso % (Auto) [employer], Absolute Neuts (auto) 10.4 H, Absolute Lymphs (auto) 0.78 L, Neutrophils % (Manual) 70, Band Neutrophils % 10 H, Lymphocytes % (Manual) 6 L, Monocytes % (Manual) 14 H, Nucleated RBC % [employer], Diff Path Review October foll, D-Dimer Quant (PE/DVT) 2.40 H*, Sodium 128 L, Potassium 3.0 L, Chloride 98, Carbon Dioxide 22.0, Anion Gap 8, BUN 23 H, Creatinine 1.95 H, Estim Creat Clear Calc 25.49, Est GFR (MDRD) Af Amer 33 L, Est GFR (MDRD) Non-Af 27 L, BUN/Creatinine Ratio 11.8, Glucose 108 H, Calcium 8.8, Troponin I High Sens 25 05/24/23 23:43: Lactic Acid 1.4 Micro: Microbiology 05/24/23 22:45 Mucosa - Nasopharyngeal Rapid RSV (DFA) - Final 05/24/23 20:08 Nasal Secretion SARS-CoV-2 Antigen (Rapid) - Final Imagaing Radiology Impression Chest X-Ray 05/24/23 20:14 IMPRESSION: Mild basilar infiltrate/atelectasis bilaterally, left more than right. Electronically Signed: Xander Fraire DO at 20:31 EST , Chest CTA 05/24/23 23:59 IMPRESSION: 1. Findings of extensive bilateral lower lobe pneumonia, with lesser pneumonia in the upper lobes and right middle lobe. 2. Negative for PE. 3. Mild hilar or mediastinal adenopathy. 4. 2.2 solid mass of the right renal upper pole, most likely a small renal cell carcinoma. Urology follow-up suggested. 5. 1 cm lucent lesion within the T11 vertebral body, not definitely a benign cavernous hemangioma and correlation with bone scan or MR may be of benefit to evaluate for metastatic disease 6. Peribronchial cuffing indicating bronchial wall inflammation. Mild bilateral bronchiectasis. Nonstandard communication protocol initiated. Electronically Signed: Sandeep Lopez MD at 2:33 EST , ADDENDUM: 05/25/23 0242 IMPRESSION: 1. Findings of extensive bilateral lower lobe pneumonia, with lesser pneumonia in the upper lobes and right middle lobe. 2. Negative for PE. 3. Mild hilar or mediastinal adenopathy. 4. 2.2 solid mass of the right renal upper pole, most likely a small renal cell carcinoma. Urology follow-up suggested. 5. 1 cm lucent lesion within the T11 vertebral body, not definitely a benign cavernous hemangioma and correlation with bone scan or MR may be of benefit to evaluate for metastatic disease 6. Peribronchial cuffing indicating bronchial wall inflammation. Mild bilateral bronchiectasis. Nonstandard communication protocol initiated. N.B. : The above Results were Read Back by Sandeep Lopez MD to Steve Woods MD, and understanding confirmed on 05/25/2023 02:35:39 (ET). Electronically Signed: Sandeep Lopez MD at 2:33 EST , Assessment & Plan Assessment/Plan (1) Right renal mass: (2) Pneumonia: QUALIFIERS: Pneumonia type: due to unspecified organism Laterality: bilateral Lung location: lower lobe of lung Qualified Code(s): J18.9 - Pneumonia, unspecified organism (3) Hypoxia: (4) GABRIELLE (acute kidney injury): PLAN: Plan 1. Bilateral pneumonia confirmed on CT this visit with leukocytosis of 13 present on admission - Admit to general medical floor. Continue broad-spectrum antibiotics and await culture and sensitivity data. Give Tylenol prn for [id number] level 1-5/10 pain or fever. Give Morphine IV prn for severe level 6-10/10 pain. Give mucous to thin and mobilize secretions. 2. ~2.2 cm mass of the Right upper renal pole; incidentally noted and newly diagnosed with a ~1 cm lucent lesion within the T11 vertebral body also suspicious for possible metastatic disease complicating #1 in the setting of a strong positive family history of breast, colon and skin cancer in her mother and colon cancer in her sister - We will consult Dr. Dorsey of urology to see this patient on-rounds in the AM for further recommendations regarding possible biopsy with help appreciated in advance. Finally, we will also consult the oncologist on-call to see this patient on rounds in the a.m. for further recommendations with help appreciated in advance. 3. GABRIELLE; likely due at least in part to #2 with an elevated creatinine of 1.95 mg/dL and BUN of 27 mg/dL present on admission (up from her baseline of 1.47 mg/dL with a BUN of 28 mg/dL in January of this year) - Give volume resuscitation with NS and then recheck BMP in the AM to ensure improvement. Avoid potentially nephrotoxic agents. 4. Critically elevated d-dimer of 2.4 present on admission compounding #1 - #3 - CTA of chest negative for PE. We will also check LE dopplers to evaluate for DVT and give full-dose Lovenox until imaging confirms there is no evidence of significant clot formation in her LE's. 5. Hypokalemia of 3 mmol/L present on admission - Give supplemental KCl and then recheck level in the AM confirm repletion. 6. Hyponatremia of 128 mmol/L present on admission adding to the pathology - Give NS IVF and then recheck BMP in the AM to document response to treatment. 7. History of Sjogren's syndrome; on hydroxychloroquine - Her connective tissue disease is apparently well-controlled at this time. Continue hydroxychloroquine as previous. 8. Essential hypertension - Give IV hydralazine as needed for systolic blood pressure greater than 160 mmHg. Avoid potentially nephrotoxic agents. 9. Hyperlipidemia - Check lipid profile this admission. 10. GERD - Continue PPI. 11. Osteoarthritis - Stable. Give Tylenol as needed as outlined above. 12. History of cholecystectomy - Noted. 12. History of colonoscopy - Noted. 13. Remote history of ectopic ; status post tubal ligation - Noted. 14. DVT prophylaxis - Patient started on full dose Lovenox until DVT is ruled out on lower extremity Doppler to be done in the a.m. Avoid SCD's with elevated D-dimer suggesting there may be a clot present. Total time: Approximately 55 minutes. Charges/Coding Visit Charges Inpatient E&M: 97230 Init Hosp L2
[2023-05-25] MEDS: Ceftriaxone 2 GM in 0.9% Normal Saline (50mL MB+) 50 ML IV (02:59)
[2023-05-25] MEDS: Azithromycin 500 MG in Dextrose 5%-Water (250mL Bag) 250 ML 250 MG IV ×2 (03:35→22:47)
--- OUTSIDE RECORDS SUMMARY | 2023-05-25 03:38 | XMS RPT_ITS | CCD ---
Author Name Unknown Address [address] [place] [address] Organization [facility] Care Team Providers Care Legal Researcher Name Role Phone Fortino Briones MD Primary Care Provider LAZARA MCNULTY Attending Unavailable FORTINO BRIONES Primary Care Unavailable FORTINO BRIONES Primary Care Unavailable FOUZIA QUIROZ Referring Unavailable FORTINO BRIONES Primary Care Unavailable ALICIA HAMLIN Attending Unavailable FORTINO BRIONES Primary Care Unavailable FORTINO BRIONES Primary Care Unavailable FORTINO BRIONES Primary Care Unavailable NELYJUSTYNEE Referring Unavailable FORTINO BRIONES Primary Care Unavailable NELYMINDI Romero Referring Unavailable FORTINO BRIONES Primary Care Unavailable FORTINO BRIONES Primary Care Unavailable NELY, MINDI Referring Unavailable FORTINO BRIONES Primary Care Unavailable LAZARA MCNULTY Referring Unavailable FORTINO BRIONES Primary Care Unavailable LAZARA MCNULTY Referring Unavailable LAZARA MCNULTY Attending Unavailable FORTINO BRIONES Primary Care Unavailable LAZARA MCNULTY Referring Unavailable Allergies Allergy Classification Reported Allergen(s) Allergy Type Date of Onset Reaction(s) Facility (20 sources) aMILoride / hydroCHLOROthiaz stone; Translations: [AMILORIDE-HYDRO CHLOROTHIAZIDE] Drug Allergy [address] [facility] Work Phone: (20 sources) Amoxicillin; Translations: [AMOXICILLIN] Drug Allergy [address] [facility] Work Phone: (20 sources) Amoxicillin / Clavulanate; Translations: [AMOXICILLIN-POT CLAVULANATE] Drug Allergy 5 GI Upset [facility] Work Phone: (20 sources) Cephalexin; Translations: [CEPHALEXIN] Drug Allergy [address] [facility] Work Phone: (20 sources) Doxycycline; Translations: [DOXYCYCLINE] Drug Allergy 5 Other: See Comments [facility] Work Phone: (20 sources) Grass pollen; Translations: [GRASS POLLEN] Drug Allergy [address] [facility] Work Phone: [phone] (20 sources) House dust mite; Translations: [DUST MITES] Allergy to substance [address] [facility] Work Phone: (20 sources) Lisinopril; Translations: [LISINOPRIL] Drug Allergy [address] [facility] Work Phone: [phone] (20 sources) Sulfonamides (Antibiotic); Translations: [SULFA (SULFONAMIDE ANTIBIOTICS)] Drug Allergy [address] [facility] Work Phone: (20 sources) Tree; Translations: [TREES] Allergy to substance [address] [facility] Work Phone: (20 sources) ERYTHRAMYCIN [Other] Propensity to adverse reactions 5 GI Ups[address] [facility] Work Phone: (1 source) OTHER; Translations: [OTHER] Propensity to adverse reactions (disorder) 5 [facility] Repository Medications Current Medications Medication Drug Class(es) Dates Sig (Normalized) Sig (Original) benzonatate 100 mg oral capsule (1 source) Non-narcotic Antitussive Start: 02-22-2021 End: 01-13-2022 take 1 capsule by mouth every eight hours as needed benzonatate (TESSALON PERLES) 100 mg capsule Take 1 capsule by mouth three times daily as needed for cough. 21 capsule 0 02/22/2021 01/13/2022 Discontinued Completed/Discontinued Medications Medication Drug Class(es) Dates Sig (Normalized) Sig (Original) [id number] 200 actuat albuterol 0.09 mg/actuat metered dose inhaler (6 sources) beta2-Adrenergic Agonist Start: 04-16-2022 End: 09-15-2022 take 2 puff(s) by inhalation every four hours as needed albuterol HFA (VENTOLIN HFA) 90 mcg/actuation inhaler Indications: Wheezing Inhale 2 Puffs as instructed every 4 hours as needed. 18 g 0 04/16/2022 09/15/2022 Discontinued Problems Active Problems Problem Classification Problem Date Documented Da te Episodic/Chronic Chronic kidney disease (20 sources) Chronic kidney disease stage 3; Translations: [CKD (chronic kidney disease) stage 3, GFR 30-59 ml/min] Onset: 11-10-2014 05-30-2021 Chronic Deficiency and other anemia (20 sources) Anemia of chronic disease; Translations: [Anemia in other chronic diseases classified elsewhere] Onset: 11-10-2014 05-30-2021 Chronic Disorders of lipid metabolism (20 sources) Mixed hyperlipidemia; Translations: [Mixed hyperlipidemia] Onset: 07-30-2017 07-30-2017 Chronic Diverticulosis and diverticulitis (20 sources) Diverticulosis of colon; Translations: [Diverticulosis of large intestine without perforation or abscess without bleeding] Onset: 08-04-2005 08-07-2018 Chronic Essential hypertension (20 sources) Essential hypertension; Translations: [Essential (primary) hypertension] Onset: 07-30-2017 07-30-2017 Chronic Immunity disorders (20 sources) Polyclonal gammopathy; 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] Onset: 06-27-2013 06-26-2016 Chronic Other gastrointestinal disorders (20 sources) Celiac disease; Translations: [Celiac disease] 11-10-2014 Chronic Other screening for suspected conditions (not mental disorders or infectious disease) (20 sources) Patient encounter status; Translations: [Encounter for screening mammogram for malignant neoplasm of breast] Onset: 09-19-2017 Episodic Other upper respiratory disease (20 sources) Allergic rhinitis; Translations: [Allergic rhinitis, unspecified] Onset: 04-21-2005 01-30-2018 Chronic Other upper respiratory infections (1 source) Acute pansinusitis; Translations: [Acute pansinusitis, unspecified] 2023 Episodic Systemic lupus erythematosus and connective tissue disorders (20 sources) Sjogren's syndrome; Translations: [Sicca syndrome, unspecified] 05-02-2017 Chronic Unclassified (1 source) Acute cough; Translations: [Acute cough] Onset: 09-11-2022 Past or Other Problems Problem Classification Problem Date Documented Da te Episodic/Chronic Gastritis and duodenitis (20 sources) Duodenitis; Translations: [Duodenitis without bleeding] Onset: 04-12-2010 11-10-2014 Episodic Other aftercare (20 sources) Drug therapy finding; Translations: [Other terminal operations supervisor (current) drug therapy] Onset: 07-30-2017 02-18-2018 Episodic Other and unspecified benign neoplasm (20 sources) History of polyp of colon; Translations: [Personal history of colonic polyps] Onset: 03-15-2009 08-07-2018 Episodic Other infections; including parasitic (20 sources) History of herpes zoster; Translations: [Personal history of other infectious and parasitic diseases] Onset: 10-15-2020 10-15-2020 Episodic Other skin disorders (20 sources) Epidermoid cyst; Translations: [Epidermal cyst] Onset: 09-03-2017 09-03-2017 Episodic Phlebitis; thrombophlebitis and thromboembolism (20 sources) H/O: Deep vein thrombosis; Translations: [Personal history of other venous thrombosis and embolism] Onset: 06-17-2009 08-07-2018 Episodic Pneumonia (except that caused by tuberculosis or sexually transmitted disease) (5 sources) Bacterial pneumonia; Translations: [Unspecified bacterial pneumonia] Onset: 11-10-2022 Episodic Viral infection (20 sources) Postherpetic neuralgia; Translations: [Other postherpetic nervous system involvement] Onset: 10-15-2020 10-15-2020 Episodic Results Test Name Value Interpretation Reference Range Facil ity Vital Signs Date Time Vital Sign Value Performing Clinician Kesha bonner 2023 10:45-0400 Body temperature 98.29 [degF] Fouzia TERRAZAS-Renato Work Phone: [facility] 2023 10:45-0400 Body weight 67.5 kg Fouzia TERRAZAS-C Work Phone: [facility] 2023 10:45-0400 Diastolic blood pressure 74 mm[Hg] Fouzia TERRAZAS-Renato Work Phone: [facility] 2023 10:45-0400 Heart rate 98 /min Fouzia TERRAZAS-Renato Work Phone: [facility] 2023 10:45-0400 Respiratory rate 20 /min Fouzia Athy PA-C Work Phone: [facility] 2023 10:45-0400 SaO2% (BldA) [Mass fraction] 97 % Fouzia Athy PA-C Work Phone: [facility] 2023 10:45-0400 Systolic blood pressure 124 mm[Hg] Fouzia Athy PA-C Work Phone: [facility] 10-09-2022 13:30-0400 Body temperature 98.4 [degF] Lazara Mcnulty PA-C Work Phone: [facility] 10-09-2022 13:30-0400 Body weight 66.68 kg Lazara Mcnulty PA-C Work Phone: [facility] 10-09-2022 13:30-0400 Diastolic blood pressure 78 mm[Hg] Lazara Mcunlty PA-C Work Phone: [facility] 10-09-2022 13:30-0400 Heart rate 64 /min Lazara Mcnulty PA-C Work Phone: [facility] 10-09-2022 13:30-0400 Respiratory rate 16 /min Lazara Mcnulty PA-C Work Phone: [facility] 10-09-2022 13:30-0400 SaO2% (BldA) [Mass fraction] 100 % Lazara Mcnulty PA-C Work Phone: [facility] 10-09-2022 13:30-0400 Systolic blood pressure 102 mm[Hg] Lazara Mcnulty PA-C Work Phone: [facility] 09-15-2022 08:58-0400 Body temperature 97.7 [degF] Lazara Mcnulty PA-C Work Phone: [facility] 09-15-2022 08:58-0400 Body weight 66.22 kg Lazara Mcnulty PA-C Work Phone: [facility] 09-15-2022 08:58-0400 Diastolic blood pressure 76 mm[Hg] Lazara Mcnulty PA-C Work Phone: [facility] 09-15-2022 08:58-0400 Heart rate 98 /min Lazara Mcnulty PA-C Work Phone: [facility] 09-15-2022 08:58-0400 Respiratory rate 18 /min Lazara Mcnulty PA-C Work Phone: [facility] 09-15-2022 08:58-0400 SaO2% (BldA) [Mass fraction] 99 % Lazara Mcnulty PA-C Work Phone: [facility] 09-15-2022 08:58-0400 Systolic blood pressure 108 mm[Hg] Lazaracarlos Mcnulty PA-C Work Phone: [facility] 09-11-2022 10:36-0400 Body temperature 99.61 [degF] Fouzia Athy PA-C Work Phone: [facility] 09-11-2022 10:36-0400 Body weight 67.13 kg Fouzia Athy PA-C Work Phone: [facility] 09-11-2022 10:36-0400 Diastolic blood pressure 62 mm[Hg] Fouzia Athy PA-C Work Phone: [facility] 09-11-2022 10:36-0400 Heart rate 114 /min Fouzia Athy PA-C Work Phone: [facility] 09-11-2022 10:36-0400 Respiratory rate 18 /min Fouzia Athy PA-C Work Phone: [facility] 09-11-2022 10:36-0400 SaO2% (BldA) [Mass fraction] 95 % Fouzia Athy PA-C Work Phone: [facility] 09-11-2022 10:36-0400 Systolic blood pressure 122 mm[Hg] Fouzia Athy PA-C Work Phone: [facility] 08-10-2022 16:11-0500 Body weight 69.4 kg Alicia Hamlin APRN.CNP Work Phone: [facility] 08-10-2022 16:11-0500 Diastolic blood pressure 80 mm[Hg] Alicia Alexoble MANAGER LIGHTING.TREND INVESTIGATOR Work Phone: [facility] 08-10-2022 16:11-0500 Heart rate 80 /min Alicia Hamlin MANAGER LIGHTING.TREND INVESTIGATOR Work Phone: [facility] 08-10-2022 16:11-0500 Respiratory rate 14 /min Alicia Hamlin MANAGER LIGHTING.TREND INVESTIGATOR Work Phone: [facility] 08-10-2022 16:11-0500 Systolic blood pressure 124 mm[Hg] Alicia Yakelin MANAGER LIGHTING.TREND INVESTIGATOR Work Phone: [facility] 01-13-2022 07:01-0400 Body height 165.7 cm Mindi Nely MANAGER LIGHTING.TREND INVESTIGATOR Work Phone: [facility] 01-13-2022 07:01-0400 Body weight 69.67 kg Mindi Nely MANAGER LIGHTING.TREND INVESTIGATOR Work Phone: [facility] 01-13-2022 07:01-0400 Diastolic blood pressure 66 mm[Hg] Mindi Fairbank MANAGER LIGHTING.TREND INVESTIGATOR Work Phone: [facility] 01-13-2022 07:01-0400 Systolic blood pressure 120 mm[Hg] Mindi Fairbank MANAGER LIGHTING.TREND INVESTIGATOR Work Phone: [facility] Encounters Encounter Date Encounter Type Care Provider Facility Start: 05-22-2023 End: 05-22-2023 ambulatory FORTINO BRIONES Facility:[facility] Start: 03-13-2023 End: 03-13-2023 ambulatory FORTINO BRIONES Facility:[facility] Start: 03-13-2023 End: 03-13-2023 Subsequent hospital visit by physician Diagnostic Mammo [facility] Mammogram Procedures Date Procedure Procedure Detail Performing Clinician Start: 03-13-2023 Digital breast tomosynthesis unilateral Mindi Nicholasf MANAGER LIGHTING.TREND INVESTIGATOR Work Phone: Start: 03-13-2023 Us breast uni real t surya with image limited Mindi Mckay MANAGER LIGHTING.REBECCA Work Phone: Start: 02-09-2023 Screening mammograph y bi 2-view breast inc cad Mindi Mckay MANAGER LIGHTING.REBECCA Work Phone: Start: 08-10-2022 Ecg routine ecg w/le ast 12 lds i&r only [facility] Provider Start: 01-13-2022 End: 01-13-2022 Mammography Mindi Mckay MANAGER LIGHTING.C RAILROAD SIGNAL OPERATOR Work Phone: Start: 01-27-2021 Colonoscopy Mindi goldberg MANAGER LIGHTING.REBECCA Work Phone: Start: 10-15-2020 Adult depression scr eening assessment Mindi Mckay MANAGER LIGHTING.REBECCA Work Phone: Start: 01-17-2018 Lipid 1996 panel - S connor or Plasma Mindi Mckay MANAGER LIGHTING.REBECCA Work Phone: Plan of Treatment Date Care Activity Detail Author Start: 01-27-2026 Colonoscopy [address] [facility] Start: 01-27-2026 COLORECTAL CANCER SCREENING COLORECTAL CANCER SCREENING [facility] Start: 02-26-2024 BP Controlled (<130/80) BP Controlle d (<130/80) [facility] Start: 02-10-2024 Mammography Mammogram Screening [facility] Start: 01-01-2024 Urine microalbumin profile [facility] Start: 10-10-2023 ANNUAL PCP TEAM INDUSTRIAL TECHNOLOGY EDUCATION TEACHER JANIA DISEASE VISIT ANNUAL PCP TEAM CHRONIC DISEASE VISIT [facility] Start: 10-10-2023 BP CONTROLLED (<130/80) BP CONTROLLE D (<130/80) [facility] Start: 09-16-2023 ANNUAL PCP TEAM INDUSTRIAL TECHNOLOGY EDUCATION TEACHER JANIA DISEASE VISIT ANNUAL PCP TEAM CHRONIC DISEASE VISIT [facility] Start: 09-16-2023 BP CONTROLLED (<130/80) BP CONTROLLE D (<130/80) [facility] Start: 09-12-2023 BP CONTROLLED (<130/80) BP CONTROLLE D (<130/80) [facility] Start: 08-11-2023 ANNUAL PCP TEAM INDUSTRIAL TECHNOLOGY EDUCATION TEACHER JANIA DISEASE VISIT ANNUAL PCP TEAM CHRONIC DISEASE VISIT [facility] Start: 08-11-2023 BP CONTROLLED (<130/80) BP CONTROLLE D (<130/80) [facility] Start: 06-03-2023 ADVANCE DIRECTIVE DISCUSSION ADVANCE DIRECTIVE DISCUSSION [facility] Immunizations Immunization Date Immunization Notes Care Provider Karol coffman 03-20-2022 influenza virus vacc ine, unspecified formulation Mindi Fairbank MANAGER LIGHTING.TREND INVESTIGATOR Work Phone: [facility] 05-23-2020 pneumococcal polysaccharide vaccine, 23 valent Alicia Knoble MANAGER LIGHTING.TREND INVESTIGATOR Work Phone: [facility] Work Phone: 05-13-2019 pneumococcal conjuga te vaccine, 13 valent Mindi Fairbank MANAGER LIGHTING.TREND INVESTIGATOR Work Phone: [facility] 03-18-2019 influenza, high dose seasonal, preservative-free Mindi Nely MANAGER LIGHTING.TREND INVESTIGATOR Work Phone: [facility] 04-04-2018 influenza, injectabl e, quadrivalent, contains preservative Mindi Nely MANAGER LIGHTING.TREND INVESTIGATOR Work Phone: [facility] 03-26-2016 influenza, injectabl e, quadrivalent, preservative free Mindi Fairbank MANAGER LIGHTING.TREND INVESTIGATOR Work Phone: [facility] Work Phone: 03-20-2015 influenza, injectabl e, quadrivalent, preservative free Mindi Nely MANAGER LIGHTING.TREND INVESTIGATOR Work Phone: [facility] 12-31-2013 tetanus toxoid, redu leticia diphtheria toxoid, and acellular pertussis vaccine, adsorbed Mindi Fairbank MANAGER LIGHTING.TREND INVESTIGATOR Work Phone: [facility] 03-23-2010 influenza virus vacc ine, unspecified formulation Mindi Fairbank MANAGER LIGHTING.TREND INVESTIGATOR Work Phone: [facility] Work Phone: 05-17-2009 novel influenza-H1N1 -09, all formulations Mindi Fairbank MANAGER LIGHTING.TREND INVESTIGATOR Work Phone: [facility] Work Phone: 04-21-2006 influenza virus vacc ine, unspecified formulation Mindi Nely MANAGER LIGHTING.TREND INVESTIGATOR Work Phone: [facility] Work Phone: 03-04-2004 influenza virus vacc ine, whole virus Mindi Nely MANAGER LIGHTING.TREND INVESTIGATOR Work Phone: [facility] Work Phone: 02-14-2003 diphtheria and tetan us toxoids, adsorbed for pediatric use Mindi Fairbank MANAGER LIGHTING.TREND INVESTIGATOR Work Phone: [facility] Work Phone: Payers Date Payer Category Payer Medicare MEDICARE MEDICAR E A AND B [id number] 2019-Present [phone] [address] [address] [place] [address] Medicare [id number] 2019 Medicare [id number] 2019 Medicare [id number] 2019 Unknown MMO MMO MEDICARE SUPPLEMENT [id number] 2019-Present [phone] [address] [place] [address] Indemnity [id number] Social History Date Type Detail Facility Start: 03-30-2011 Tobacco smoking stat [facility] Never smoked tobacco [facility] Start: 03-30-2011 Tobacco use and exposure Smoke less tobacco non-user [facility] Start: 01-13-2022 End: 2023 Alcohol intake Current non-drinker of alcohol (finding) [facility] Start: 01-01-2020 End: 08-03-2022 History SDOH Social Connections Phone [address] [facility] Start: 01-01-2020 End: 08-03-2022 History SDOH Social Connections Druze [address] [facility] Start: 01-01-2020 End: 08-03-2022 History SDOH Social Connections Membership [address] [facility] Start: 01-01-2020 End: 08-03-2022 History SDOH Social Connections Living [address] [facility] Start: 01-01-2020 History SDOH Physica l Activity MPS [address] [facility] Start: 01-01-2020 End: 08-03-2022 History SDOH Transport Med [address] [facility] Start: 01-01-2020 Education [address] [facility] Start: 1955 Sex Assigned At Female C [facility] Start: 01-03-2022 End: 01-17-2022 Exposure to SARS-CoV-2 (event) Not sure [facility] Work Phone: Start: 08-03-2022 History SDOH Alcohol Std Drinks [address] [facility] Start: 08-03-2022 End: 10-09-2022 History of Social function [facility] Start: 08-03-2022 End: 10-09-2022 Social connection and isolation panel [facility] Do you belong to any clubs or organizations such as lutheran groups, unions, fraternal or athletic groups, or school groups? Yes [facility] Are you now , , , , never or living with a partner? [facility] How often to you hav e a drink containing alcohol? Never [facility] How many standard dr inks containing alcohol do you have on a typical day? Patient does not drink [facility] Do you feel stress - tense, restless, nervous, or anxious, or unable to sleep at night because your mind is troubled all the time - these days [OSQ] Not at all [facility] (I/We) worried wheth er (my/our) food would run out before (I/we) got money to buy more. Never true [facility] In the past 12 month s, was there a time when you were not able to pay the mortgage or rent on time? No [facility] Start: 10-10-2020 Gender identity Identifies as female gender (finding) [facility] Clinical Notes 01-27-2021 to 05-22-2023 Jacki Price RDMS - 03/13/2023 11:30 AM Emilie Wallace Mammo Tech - 03/13/2023 11:00 AM Aydee Baron LPN - 02/26/2023 12:23 PM Fouzia Stallings PA-C - 2023 11:17 AM EDT Note Date & Type Note Facility 05-22-2023 Note HNO ID: [id number] Author: Mohini Davidson APRN.TREND INVESTIGATOR Service: ? Author Type: Nurse Practitioner Type: Progress Notes Filed: 05/22/2023 10:05 AM Note Text: Subjective The history is provided by the patient. No social media executive was used. JAZMINE Cardozo is a 68 year old female who presents today for CC of cough, congestion, runny nose, nausea, and diarrhea for 5 days. She is also having right ear pain. She has used mucinex, and tylenol with short term relief. She is also having left neck, radiating in to shoulder from catching self. She has been using ice and heat. This happened yesterday. BP 126/68 Pulse 102 Temp 36.1 ?C (96.9 ?F) Resp 16 Wt 64.4 kg (142 lb) SpO2 96% BMI 23.45 kg/m? Social History Tobacco Use Smoking status: Never Smokeless tobacco: Never Vaping Use Vaping Use: Never used Substance Use Topics Alcohol use: No Drug use: No 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 Celiac disease CKD (chronic kidney disease) stage 3, GFR 30-59 ml/min ([facility]) 2013 Diverticulosis of colon 08/04/2005 Duodenitis without mention of hemorrhage 04/12/2010 Epidermal inclusion cyst 09/03/2017 Removed right knee 08/2017 Essential hypertension 07/30/2017 Family history of malignant neoplasm of gastrointestinal tract 01/07/2015 GERD (gastroesophageal reflux disease) 11/10/2014 GRANULOMA ANNULARE///ERYTHEMATOUS COND NEC 09/11/2008 History of DVT (deep vein thrombosis) 06/17/2009 First and only one was in lower extremity around 2006 Ichthyosis congenita Mixed hyperlipidemia 07/30/2017 Personal history of colonic polyps 03/15/2009 polyps / distal sigmoid Phlebitis and thrombophlebitis of other deep vessels of lower extremities 2009 DVT - Popliteal/Tibia 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 HENT: Positive for congestion and sinus pain. Negative for ear pain and sore throat. Respiratory: Positive for cough. Negative for sputum production, shortness of breath and wheezing. Cardiovascular: Negative for chest pain. Gastrointestinal: Positive for diarrhea and nausea. Negative for abdominal pain and vomiting. Musculoskeletal: Negative for myalgias. Neurological: Negative for headaches. Objective Physical Exam Vitals and nursing note reviewed. Constitutional: Appearance: Normal appearance. HENT: Head: Normocephalic and atraumatic. Right Ear: Tympanic membrane, ear canal and external ear normal. Left Ear: Tympanic membrane, ear canal and external ear normal. Ears: Comments: right ear opaque, due to graft Nose: Mucosal edema, congestion and rhinorrhea present. Right Sinus: No maxillary sinus tenderness or frontal sinus tenderness. Left Sinus: No maxillary sinus tenderness or frontal sinus tenderness. Mouth/Throat: Pharynx: Uvula midline. Posterior oropharyngeal erythema present. No oropharyngeal exudate. Cardiovascular: Rate and Rhythm: Normal rate and regular rhythm. Heart sounds: Normal heart sounds. Pulmonary: Effort: Pulmonary effort is normal. Breath sounds: Normal breath sounds. Abdominal: General: Bowel sounds are normal. There is no abdominal bruit. Palpations: Abdomen is not rigid. There is no mass or pulsatile mass. Tenderness: There is no abdominal tenderness. There is no guarding or rebound. Negative signs include Self's sign and McBurney's sign. Musculoskeletal: Cervical back: Tenderness present. No spasms or bony tenderness. Pain with movement present. Thoracic back: Normal. Lumbar back: Normal. Back: Lymphadenopathy: Head: Right side of head: No submental, submandibular or tonsillar adenopathy. Left side of head: No submental, submandibular or tonsillar adenopathy. Cervical: No cervical adenopathy. Skin: General: Skin is warm and dry. Neurological: Mental Status: She is alert and oriented to person, place, and time. Psychiatric: Mood and Affect: Affect normal. ASSESSMENT/PLAN: 1. URI with cough and congestion - ICD9: 465.9, ICD10: J06.9 (primary diagnosis) - Discussed viral etiology and rationale for treatment. - Symptomatic treatment with prn analgesia - Supportive care with fluids and rest 2. Musculoskeletal neck pain - ICD9: 723.1, ICD10: M54.2 Tylenol, rest, ice heat Flexeril as needed Follow up with PCP prn Diagnosis and treatment plan were discussed and questions were answered to the patient's satisfaction. Pt acknowledged understanding of concepts an (more content not included)... [facility] 03-13-2023 Note HNO ID: [id number] Author: Jacki Price RDMS Service: ? Author Type: Mechanical Lead Type: Progress Notes Filed: 03/13/2023 1:40 PM Note Text: Radiology Service Progress Note PATIENT NAME: Richelle Cardozo DATE OF SERVICE: March 13, 2023 TIME: 1:40 PM PATIENT IDENTITY VERIFICATION COMPLETED USING TWO (2) IDENTIFIERS: Name and Date of confirmed by patient verbally. FALL SCREENING: Has the patient had 2 falls in the last year or 1 fall with injury or currently using an Ambulatory Assistive Device (Walker, Cane, Wheelchair, Crutches, etc.)? No PATIENT GENDER DATA: Female. status: : No status: NO. PATIENT RELEVANT IMPLANT DATA REVIEWED: Not Applicable RADIOLOGY DEPARTMENT: Ultrasound PERIPHERAL IV DATA: Not applicable SIGNED BY: Jacki Price RDMS RVT March 13, 2023 1:40 PM [facility] 03-13-2023 Note HNO ID: [id number] Author: Emilie Cordon [employer] Service: ? Author Type: Quality Assurance Auditor Type: Progress Notes Filed: 03/13/2023 11:43 AM Note Text: Radiology Service Progress Note PATIENT NAME: Richelle Cardozo DATE OF SERVICE: March 13, 2023 TIME: 10:56 AM PATIENT IDENTITY VERIFICATION COMPLETED USING TWO (2) IDENTIFIERS: Name and Date of confirmed by patient verbally. FALL SCREENING: Has the patient had 2 falls in the last year or 1 fall with injury or currently using an Ambulatory Assistive Device (Walker, Cane, Wheelchair, Crutches, etc.)? No PATIENT GENDER DATA: Female. status: : No status: NO. PATIENT RELEVANT IMPLANT DATA REVIEWED: Not Applicable RADIOLOGY DEPARTMENT: Mammography PERIPHERAL IV DATA: Not applicable SIGNED BY: Estefania Prescott March 13, 2023 10:56 AM [facility] 03-13-2023 History of Present illness Narrative Radiology Service Progress Note PATIENT NAME: Richelle Cardozo DATE OF SERVICE: March 13, 2023 TIME: 1:40 PM PATIENT IDENTITY VERIFICATION COMPLETED USING TWO (2) IDENTIFIERS: Name and Date of confirmed by patient verbally. FALL SCREENING: Has the patient had 2 falls in the last year or 1 fall with injury or currently using an Ambulatory Assistive Device (Walker, Cane, Wheelchair, Crutches, etc.)? No PATIENT GENDER DATA: Female. status: : No status: NO. PATIENT RELEVANT IMPLANT DATA REVIEWED: Not Applicable RADIOLOGY DEPARTMENT: Ultrasound PERIPHERAL IV DATA: Not applicable SIGNED BY: Jacki Price RDMS RVT March 13, 2023 1:40 PM documented in this encounter [facility] 03-13-2023 History of Present illness Narrative Radiology Service Progress Note PATIENT NAME: Richelle Cardozo DATE OF SERVICE: March 13, 2023 TIME: 10:56 AM PATIENT IDENTITY VERIFICATION COMPLETED USING TWO (2) IDENTIFIERS: Name and Date of confirmed by patient verbally. FALL SCREENING: Has the patient had 2 falls in the last year or 1 fall with injury or currently using an Ambulatory Assistive Device (Walker, Cane, Wheelchair, Crutches, etc.)? No PATIENT GENDER DATA: Female. status: : No status: NO. PATIENT RELEVANT IMPLANT DATA REVIEWED: Not Applicable RADIOLOGY DEPARTMENT: Mammography PERIPHERAL IV DATA: Not applicable SIGNED BY: Estefania Prescott March 13, 2023 10:56 AM documented in this encounter [facility] 02-27-2023 Note HNO ID: [id number] Author: Mireille Valladares Ma Service: ? Author Type: ? Type: Progress Notes Filed: 03/01/2023 10:25 AM Note Text: Scan on 02/27/2023 3:29 AM by ProviderKofi PA-C: Consultation - Rheumatology [facility] 02-26-2023 Note HNO ID: [id number] Author: Aydee Canela LPN Service: ? Author Type: ? Type: Progress Notes Filed: 02/26/2023 12:40 PM Note Text: Scan on 02/26/2023 7:37 AM by ProviderKofi PA-C: Miscellaneous Lab [facility] 02-26-2023 History of Present illness Narrative Scan on 02/26/2023 7:37 AM by Kofi Lilly PA-C: Miscellaneous Lab documented in this encounter [facility] 2023 Note HNO ID: [id number] Author: Fouzia Quiroz PA-C Service: ? Author Type: Physician Wide Area Network Systems Administrator Type: Progress Notes Filed: 2023 11:22 AM Note Text: This note was created using [email or web address]. Luli Cardozo is a 68 year old female. HPI Patient presents with a chief complaint of sinus pressure and congestion over the past 8 days. She has tried some Tylenol and Afrin a few times. She does have some seasonal allergies. She felt feverish the first couple of days but none since then. She has had a cough. No chest pain or shortness of breath. She did have pneumonia in September which she had recovered from. Denies sick contacts. She did have a right ear surgery about a month ago as well. Review of Systems Constitutional: Negative. HENT: Positive for congestion, postnasal drip, sinus pressure and sinus pain. Negative for ear pain. Respiratory: Positive for cough. Negative for shortness of breath and wheezing. Cardiovascular: Negative. Gastrointestinal: Negative. Genitourinary: Negative. Musculoskeletal: Negative. All other systems reviewed and are negative. 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 Celiac disease CKD (chronic kidney disease) stage 3, GFR 30-59 ml/min ([facility]) 2013 Diverticulosis of colon 08/04/2005 Duodenitis without mention of hemorrhage 04/12/2010 Epidermal inclusion cyst 09/03/2017 Removed right knee 08/2017 Essential hypertension 07/30/2017 Family history of malignant neoplasm of gastrointestinal tract 01/07/2015 GERD (gastroesophageal reflux disease) 11/10/2014 GRANULOMA ANNULARE///ERYTHEMATOUS COND NEC 09/11/2008 History of DVT (deep vein thrombosis) 06/17/2009 First and only one was in lower extremity around 2006 Ichthyosis congenita Mixed hyperlipidemia 07/30/2017 Personal history of colonic polyps 03/15/2009 polyps / distal sigmoid Phlebitis and thrombophlebitis of other deep vessels of lower extremities 2009 DVT - Popliteal/Tibia 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 hydrOXYchloroQUINE (PLAQUENIL) 200 mg tablet One tab odd days and two tabs even days, per Rheum, Dr. Faria alendronate (FOSAMAX) 35 mg tablet Take 35 mg by mouth one time a week. In AM with cup of water on empty stomach. Nothing else by mouth and stay upright for 30 min. Cholecalciferol, Vitamin D3, 50 mcg (2,000 unit) cap Take 1 tablet by mouth once daily. sodium bicarbonate 650 mg tablet Take 1 tablet by mouth once daily. fluticasone 50 mcg/actuation nasal spray Use 2 Sprays in each nostril once daily. Rinse mouth after use. 0 omeprazole 20 mg ORAL capsule Take 1 capsule by mouth once daily. 90 capsule 3 montelukast sodium(SINGULAIR 10 MG TAB) take one tablet at bedtime 90 4 doxycycline (VIBRA-TABS) 100 mg tablet Take 1 tablet by mouth twice daily for 7 days. 14 tablet 0 promethazine (PHENERGAN) 25 mg tablet Take 1 tablet by mouth every 6 hours as needed for nausea/vomiting. 15 tablet 0 No current facility-administered medications for this visit. PAST SURGICAL HISTORY Procedure Laterality Date BIOPSY CERVIX SINGLE/MULT/EXCISION OF LESION SPX CHOLECYSTECTOMY 1976 Cholecystectomy COLONOSCOPY 01/07/2018 Dr. Hernandez, repeat 3 yrs COLONOSCOPY FLX DX W/COLLJ SPEC WHEN PFRMD 05/12/2004 Colonoscopy COLONOSCOPY FLX DX W/COLLJ SPEC WHEN PFRMD 08/04/2005 Colonoscopy, no further polyps - Repeat in 3-5 years COLONOSCOPY FLX DX W/COLLJ SPEC WHEN PFRMD 04/12/2010 Colonoscopy, repeat 5 years COLONOSCOPY FLX DX W/COLLJ SPEC WHEN PFRMD 01/07/2015 Colonoscopy COLONOSCOPY FLX DX W/COLLJ SPEC WHEN PFRMD 01/27/2021 COLONOSCOPY, SCREENING, HIGH RISK 03/01/2001 X-2 ENDOMETRIAL BX W/WO ENDOCERVIX BX W/O DILAT SPX ESOPHAGOGASTRODUODENOSCOPY TRANSORAL DIAGNOSTIC 04/12/2010 EGD LIG/TRNSXJ FLP TUBE ABDL/VAG APPR UNI/BI 1989 Tubal ligation PAST SURGICAL HISTORY OF 04/2013 Tubes placed in ears bilaterally PAST SURGICAL HISTORY OF 09/2014 Kidney bx SKIN BIOPSY HX STRESS TEST 03/2007 NL TONSILLECTOMY HX TX ECTOPIC W/O SALPINGAND/OOPHORECTOMY Ectopic FAMILY HISTORY Problem Relation Age of Onset Colon Cancer Mother 70 Cancer Mother Breast, colon, and skin Stroke Mother Thyroid Mother Heart Mother Aortic valve replacement other (Congestive heart failure) Father Colon Polyps Sister Hypertension Sister Colon Cancer Sister 62 Prostate Cancer Brother other (Suicide, hx cluster headache (more content not included)... [facility] 2023 History of Present illness Narrative This note was created using Allvoicesriter. Luli Cardozo is a 68 year old female. HPI Patient presents with a chief complaint of sinus pressure and congestion over the past 8 days. She has tried some Tylenol and Afrin a few times. She does have some seasonal allergies. She felt feverish the first couple of days but none since then. She has had a cough. No chest pain or shortness of breath. She did have pneumonia in September which she had recovered from. Denies sick contacts. She did have a right ear surgery about a month ago as well. Review of Systems Constitutional: Negative. HENT: Positive for congestion, postnasal drip, sinus pressure and sinus pain. Negative for ear pain. Respiratory: Positive for cough. Negative for shortness of breath and wheezing. Cardiovascular: Negative. Gastrointestinal: Negative. Genitourinary: Negative. Musculoskeletal: Negative. All other systems reviewed and are negative. 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 Celiac disease CKD (chronic kidney disease) stage 3, GFR 30-59 ml/min ([facility]) 2013 Diverticulosis of colon 08/04/2005 Duodenitis without mention of hemorrhage 04/12/2010 Epidermal inclusion cyst 09/03/2017 Removed right knee 08/2017 Essential hypertension 07/30/2017 Family history of malignant neoplasm of gastrointestinal tract 01/07/2015 GERD (gastroesophageal reflux disease) 11/10/2014 GRANULOMA ANNULARE///ERYTHEMATOUS COND NEC 09/11/2008 History of DVT (deep vein thrombosis) 06/17/2009 First and only one was in lower extremity around 2006 Ichthyosis congenita Mixed hyperlipidemia 07/30/2017 Personal history of colonic polyps 03/15/2009 polyps / distal sigmoid Phlebitis and thrombophlebitis of other deep vessels of lower extremities 2009 DVT - Popliteal/Tibia 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 hydrOXYchloroQUINE (PLAQUENIL) 200 mg tablet One tab odd days and two tabs even days, per Rheum, Dr. Faria alendronate (FOSAMAX) 35 mg tablet Take 35 mg by mouth one time a week. In AM with cup of water on empty stomach. Nothing else by mouth and stay upright for 30 min. Cholecalciferol, Vitamin D3, 50 mcg (2,000 unit) cap Take 1 tablet by mouth once daily. sodium bicarbonate 650 mg tablet Take 1 tablet by mouth once daily. fluticasone 50 mcg/actuation nasal spray Use 2 Sprays in each nostril once daily. Rinse mouth after use. 0 omeprazole 20 mg ORAL capsule Take 1 capsule by mouth once daily. 90 capsule 3 montelukast sodium(SINGULAIR 10 MG TAB) take one tablet at bedtime 90 4 doxycycline (VIBRA-TABS) 100 mg tablet Take 1 tablet by mouth twice daily for 7 days. 14 tablet 0 promethazine (PHENERGAN) 25 mg tablet Take 1 tablet by mouth every 6 hours as needed for nausea/vomiting. 15 tablet 0 No current facility-administered medications for this visit. PAST SURGICAL HISTORY Procedure Laterality Date BIOPSY CERVIX SINGLE/MULT/EXCISION OF LESION SPX CHOLECYSTECTOMY 1976 Cholecystectomy COLONOSCOPY 01/07/2018 Dr. Hernandez, repeat 3 yrs COLONOSCOPY FLX DX W/COLLJ SPEC WHEN PFRMD 05/12/2004 Colonoscopy COLONOSCOPY FLX DX W/COLLJ SPEC WHEN PFRMD 08/04/2005 Colonoscopy, no further polyps - Repeat in 3-5 years COLONOSCOPY FLX DX W/COLLJ SPEC WHEN PFRMD 04/12/2010 Colonoscopy, repeat 5 years COLONOSCOPY FLX DX W/COLLJ SPEC WHEN PFRMD 01/07/2015 Colonoscopy COLONOSCOPY FLX DX W/COLLJ SPEC WHEN PFRMD 01/27/2021 COLONOSCOPY, SCREENING, HIGH RISK 03/01/2001 X-2 ENDOMETRIAL BX W/WO ENDOCERVIX BX W/O DILAT SPX ESOPHAGOGASTRODUODENOSCOPY TRANSORAL DIAGNOSTIC 04/12/2010 EGD LIG/TRNSXJ FLP TUBE ABDL/VAG APPR UNI/BI 1989 Tubal ligation PAST SURGICAL HISTORY OF 04/2013 Tubes placed in ears bilaterally PAST SURGICAL HISTORY OF 09/2014 Kidney bx SKIN BIOPSY HX STRESS TEST 03/2007 NL TONSILLECTOMY HX TX ECTOPIC W/O SALPING&/OOPHORECTOMY Ectopic FAMILY HISTORY Problem Relation Age of Onset Colon Cancer Mother 70 Cancer Mother Breast, colon, and skin Stroke Mother Thyroid Mother Heart Mother Aortic valve replacement other (Congestive heart failure) Father Colon Polyps Sister Hypertension Sister Colon Cancer Sister 62 Prostate Cancer Brother other (Suicide, hx cluster headaches) Brother Colon Cancer Maternal Grandmother Arthritis Maternal Grandfather Rheumatoid Diabetes Paternal Aunt IDDM Social History Tobacco Use Smoking status: Never Smokeless tobacco: Never Vaping Use Vaping Use: Never used Substance Use Topics Alcohol use: No Drug use: No Objective BP 124/74 Pulse 98 Temp 36.8 C (98.3 F) Resp 20 Wt 67.5 kg (148 lb 12.8 oz) SpO2 97% BMI 24.57 kg/m Physical Exam Vitals reviewed. Constitutional: Appearance: Normal appearance. HENT: Head: Normocephalic and atraumatic. Right Ear: External ear normal. Left Ear: Tympanic membrane, ear canal and external ear normal. Ears: Comments: Patient has neosporin in EAC on right. Tm not visible. Nose: Congestion present. Right Sinus: Maxillary sinus tenderness and frontal sinus tenderness present. Left Sinus: Maxillary sinus tenderness and frontal sinus tenderness present. Mouth/Throat: Mouth: Mucous membranes are moist. Pharynx: Oropharynx is clear. Cardiovascular: Rate and Rhythm: Normal rate and regular rhythm. Heart sounds: Normal heart sounds. Pulmonary: Effort: Pulmonary effort is normal. Breath sounds: Normal breath sounds. Musculoskeletal: Cervical back: Neck supple. Skin: General: Skin is warm and dry. Neurological: Mental Status: She is alert. Assessment and Plan ASSESSMENT/PLAN: 1. Acute pansinusitis, recurrence not specified - ICD9: 461.8, ICD10: J01.40 - Will begin treatment with Doxycycline - Supportive care with plenty of fluids, rest, and analgesia prn. - Follow up in 3-5 days if symptoms persist or worsen. Fouzia Quiroz PA-C documented in this encounter [facility] 2023 Instructions Fouzia Qiuroz PA-C - 2023 10:54 AM EDT Flonase Plain mucinex otc If not improving in 3-5 days see pcp. documented in this encounter [facility] 02-12-2023 Miscellaneous Notes February 13, 2023 PID: [id number] Richelle Cardozo [address] [place] [address] Dear Ms. Cardozo, Your recent breast imaging exam on 02/09/2023 showed a possible finding that requires additional imaging studies for a complete evaluation. Most such findings are probably benign (not cancer). If you have a healthcare provider who ordered/prescribed your screening mammogram: Please call [phone] or [phone]: [phone] to schedule an appointment for your additional imaging (if you have not already done so). If you DO NOT have a healthcare provider (ie you did not have an order/prescription for your screening mammogram): Please call to schedule an appointment for your additional imaging (if you have not already done so). You must have an order/prescription from your physician when calling to schedule your appointment. If your order/prescription is not electronic, you must bring the hard copy with you on the day of your exam to avoid delays. Your imaging studies and reports are kept on file at [facility] as part of your permanent medical record, and are available for your continuing care. Thank you for allowing us to help in meeting your health care needs. Sincerely, Dr. Ramirez Interpreting Radiologist [facility] (Additional imaging) documented in this encounter [facility] 02-09-2023 Note HNO ID: [id number] Author: Monika Nguyen Mammo Tech Service: ? Author Type: Quality Assurance Auditor Type: Progress Notes Filed: 02/09/2023 10:16 AM Note Text: Radiology Service Progress Note PATIENT NAME: Richelle Cardozo DATE OF SERVICE: February 09, 2023 TIME: 9:59 AM PATIENT IDENTITY VERIFICATION COMPLETED USING TWO (2) IDENTIFIERS: Name and Date of confirmed by patient verbally. FALL SCREENING: Has the patient had 2 falls in the last year or 1 fall with injury or currently using an Ambulatory Assistive Device (Walker, Cane, Wheelchair, Crutches, etc.)? No PATIENT GENDER DATA: Female. status: : No status: NO. PATIENT RELEVANT IMPLANT DATA REVIEWED: Not Applicable RADIOLOGY DEPARTMENT: Mammography PERIPHERAL IV DATA: Not applicable SIGNED BY: Monika Nguyen [email or web address] February 09, 2023 9:59 AM [facility] 02-09-2023 History of Present illness Narrative Radiology Service Progress Note PATIENT NAME: Richelle Cardozo DATE OF SERVICE: February 09, 2023 TIME: 9:59 AM PATIENT IDENTITY VERIFICATION COMPLETED USING TWO (2) IDENTIFIERS: Name and Date of confirmed by patient verbally. FALL SCREENING: Has the patient had 2 falls in the last year or 1 fall with injury or currently using an Ambulatory Assistive Device (Walker, Cane, Wheelchair, Crutches, etc.)? No PATIENT GENDER DATA: Female. status: : No status: NO. PATIENT RELEVANT IMPLANT DATA REVIEWED: Not Applicable RADIOLOGY DEPARTMENT: Mammography PERIPHERAL IV DATA: Not applicable SIGNED BY: Monika Nguyen [email or web address] February 09, 2023 9:59 AM documented in this encounter [facility] 11-30-2022 Note HNO ID: [id number] Author: Aydee Canela LPN Service: ? Author Type: ? Type: Progress Notes Filed: 11/30/2022 9:15 AM Note Text: Scan on 11/28/2022 11:31 AM by External Provider, PA-C: Consultation - Nephrology/Renal [facility] 11-30-2022 History of Present illness Narrative Scan on 11/28/2022 11:31 AM by External Provider, PA-C: Consultation - Nephrology/Renal documented in this encounter [facility] 11-24-2022 Note HNO ID: [id number] Author: Kimberly Fields MA Service: ? Author Type: Forest Worker Type: Progress Notes Filed: 11/25/2022 8:46 AM Note Text: Scan on 11/22/2022 8:10 AM by External Provider, PA-C: Chemistry Scan on 11/22/2022 7:35 AM by External Provider, PANicoletteC: Hematology Kimberly Feilds MA [facility] 11-24-2022 History of Present illness Narrative Scan on 11/22/2022 8:10 AM by External Provider, PRASHANTH: Chemistry Scan on 11/22/2022 7:35 AM by External Provider, PRASHANTH: Hematology Kimberly Fields MA documented in this encounter [facility] 11-10-2022 Note HNO ID: [id number] Author: RT Charmaine(R) Service: Nuclear Medicine Author Type: Technologist Type: Progress Notes Filed: 11/10/2022 12:18 PM Note Text: Radiology Service Progress Note PATIENT NAME: Richelle Cardozo DATE OF SERVICE: November 10, 2022 TIME: 12:13 PM PATIENT IDENTITY VERIFICATION COMPLETED USING TWO (2) IDENTIFIERS: Name and Date of confirmed by patient verbally. FALL SCREENING: Has the patient had 2 falls in the last year or 1 fall with injury or currently using an Ambulatory Assistive Device (Walker, Cane, Wheelchair, Crutches, etc.)? No PATIENT GENDER DATA: Female. status: : No status: NO. PATIENT RELEVANT IMPLANT DATA REVIEWED: Not Applicable RADIOLOGY DEPARTMENT: General X-ray: Exam(s) Completed: Chest X-Ray PERIPHERAL IV DATA: Not applicable SIGNED BY: RT Charmaine(R) November 10, 2022 12:13 PM [facility] 10-09-2022 Note HNO ID: [id number] Author: Lazara Mcnulty PA-C Service: ? Author Type: Physician Wide Area Network Systems Administrator Type: Progress Notes Filed: 10/09/2022 1:49 PM Note Text: Chief Complaint No chief complaint on file. HPI Richelle Cardozo is a 67 year old female who presents here today for rehcekc. Patient was seen a month ago for pneumonia. She reports complete resolution of symptoms. Denies cough, congestion or fever. No other concerns today. Past medical history, appointments, medications, allergies reviewed. 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 Celiac disease CKD (chronic kidney disease) stage 3, GFR 30-59 ml/min ([facility]) 2013 Diverticulosis of colon 08/04/2005 Duodenitis without mention of hemorrhage 04/12/2010 Epidermal inclusion cyst 09/03/2017 Removed right knee 08/2017 Essential hypertension 07/30/2017 Family history of malignant neoplasm of gastrointestinal tract 01/07/2015 GERD (gastroesophageal reflux disease) 11/10/2014 GRANULOMA ANNULARE///ERYTHEMATOUS COND NEC 09/11/2008 History of DVT (deep vein thrombosis) 06/17/2009 First and only one was in lower extremity around 2006 Ichthyosis congenita Mixed hyperlipidemia 07/30/2017 Personal history of colonic polyps 03/15/2009 polyps / distal sigmoid Phlebitis and thrombophlebitis of other deep vessels of lower extremities 2009 DVT - Popliteal/Tibia 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 Hernandez, repeat 3 yrs COLONOSCOPY FLX DX W/COLLJ SPEC WHEN PFRMD 05/12/2004 Colonoscopy COLONOSCOPY FLX DX W/COLLJ SPEC WHEN PFRMD 08/04/2005 Colonoscopy, no further polyps - Repeat in 3-5 years COLONOSCOPY FLX DX W/COLLJ SPEC WHEN PFRMD 04/12/2010 Colonoscopy, repeat 5 years COLONOSCOPY FLX DX W/COLLJ SPEC WHEN PFRMD 01/07/2015 Colonoscopy COLONOSCOPY FLX DX W/COLLJ SPEC WHEN PFRMD 01/27/2021 COLONOSCOPY, SCREENING, HIGH RISK 03/01/2001 X-2 ENDOMETRIAL BX W/WO ENDOCERVIX BX W/O DILAT SPX ESOPHAGOGASTRODUODENOSCOPY TRANSORAL DIAGNOSTIC 04/12/2010 EGD LIG/TRNSXJ FLP TUBE ABDL/VAG APPR UNI/BI 1989 Tubal ligation PAST SURGICAL HISTORY OF 04/2013 Tubes placed in ears bilaterally PAST SURGICAL HISTORY OF 09/2014 Kidney bx SKIN BIOPSY HX STRESS TEST 03/2007 NL TONSILLECTOMY HX TX ECTOPIC W/O SALPINGAND/OOPHORECTOMY Ectopic Family History FAMILY HISTORY Problem Relation Age of Onset Colon Cancer Mother 70 Cancer Mother Breast, colon, and skin Stroke Mother Thyroid Mother Heart Mother Aortic valve replacement other (Congestive heart failure) Father Colon Polyps Sister Hypertension Sister Colon Cancer Sister 62 Prostate Cancer Brother other (Suicide, hx cluster headaches) Brother Colon Cancer Maternal Grandmother Arthritis Maternal Grandfather Rheumatoid Diabetes Paternal Aunt IDDM Patient Allergies ALLERGIES Allergen Reactions Amoxicillin Rash Hctz [Amiloride-Hyd* Intolerance REDNESS AND ITCHING Sulfa (Sulfonamide * Rash Augmentin [Amoxicil* GI Upset Cephalexin Intolerance Sore mouth and tongue Doxycycline Other: See Comments Headache Dust Mites Unknown Erythramycin [Other] GI Upset Grass Pollen Unknown Lisinopril Cough Trees Unknown Current Medications Current Outpatient Medications on File Prior to Visit Medication Sig promethazine (PHENERGAN) 25 mg tablet Take 1 tablet by mouth every 6 hours as needed for nausea/vomiting. L.acidophil/L.plantar/Bifido 7 (UP4 PROBIOTICS ADULT ORAL) Take by mouth. hydrOXYchloroQUINE (PLAQUENIL) 200 mg tablet One tab odd days and two tabs even days, per Rheum, Dr. Faria alendronate (FOSAMAX) 35 mg tablet Take 35 mg by mouth one time a week. In AM with cup of water on empty stomach. Nothing else by mouth and stay upright for 30 min. Cholecalciferol, Vitamin D3, 50 mcg (2,000 unit) cap Take 1 tablet by mouth once daily. sodium bicarbonate 650 mg tablet Take 1 tablet by mouth once daily. fluticasone 50 mcg/actuation nasal spray Use 2 Sprays in each nostril once daily. Rinse mouth after use. omeprazole 20 mg ORAL capsule Take 1 capsule by mouth once daily. montelukast sodium(SINGULAIR 10 MG TAB) take one tablet at bedtime No current facility-administered medications on file prior to visit. Social History Social History Tobacco Use Smoking status: Never Smokeless tobacco: Never Vaping Us (more content not included)... [facility] 10-09-2022 Instructions Lazara Mcnulty PA-C - 10/09/2022 1:38 PM EDT Repeat CXR in about 1 month. Return if symptoms change or worsen. documented in this encounter [facility] 10-09-2022 History of Present illness Narrative Chief Complaint No chief complaint on file. JAZMINE Cardozo is a 67 year old female who presents here today for rehcekc. Patient was seen a month ago for pneumonia. She reports complete resolution of symptoms. Denies cough, congestion or fever. No other concerns today. Past medical history, appointments, medications, allergies reviewed. 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 Celiac disease CKD (chronic kidney disease) stage 3, GFR 30-59 ml/min ([facility]) 2013 Diverticulosis of colon 08/04/2005 Duodenitis without mention of hemorrhage 04/12/2010 Epidermal inclusion cyst 09/03/2017 Removed right knee 08/2017 Essential hypertension 07/30/2017 Family history of malignant neoplasm of gastrointestinal tract 01/07/2015 GERD (gastroesophageal reflux disease) 11/10/2014 GRANULOMA ANNULARE///ERYTHEMATOUS COND NEC 09/11/2008 History of DVT (deep vein thrombosis) 06/17/2009 First and only one was in lower extremity around 2006 Ichthyosis congenita Mixed hyperlipidemia 07/30/2017 Personal history of colonic polyps 03/15/2009 polyps / distal sigmoid Phlebitis and thrombophlebitis of other deep vessels of lower extremities 2009 DVT - Popliteal/Tibia 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 Hernandez, repeat 3 yrs COLONOSCOPY FLX DX W/COLLJ SPEC WHEN PFRMD 05/12/2004 Colonoscopy COLONOSCOPY FLX DX W/COLLJ SPEC WHEN PFRMD 08/04/2005 Colonoscopy, no further polyps - Repeat in 3-5 years COLONOSCOPY FLX DX W/COLLJ SPEC WHEN PFRMD 04/12/2010 Colonoscopy, repeat 5 years COLONOSCOPY FLX DX W/COLLJ SPEC WHEN PFRMD 01/07/2015 Colonoscopy COLONOSCOPY FLX DX W/COLLJ SPEC WHEN PFRMD 01/27/2021 COLONOSCOPY, SCREENING, HIGH RISK 03/01/2001 X-2 ENDOMETRIAL BX W/WO ENDOCERVIX BX W/O DILAT SPX ESOPHAGOGASTRODUODENOSCOPY TRANSORAL DIAGNOSTIC 04/12/2010 EGD LIG/TRNSXJ FLP TUBE ABDL/VAG APPR UNI/BI 1989 Tubal ligation PAST SURGICAL HISTORY OF 04/2013 Tubes placed in ears bilaterally PAST SURGICAL HISTORY OF 09/2014 Kidney bx SKIN BIOPSY HX STRESS TEST 03/2007 NL TONSILLECTOMY HX TX ECTOPIC W/O SALPING&/OOPHORECTOMY Ectopic Family History FAMILY HISTORY Problem Relation Age of Onset Colon Cancer Mother 70 Cancer Mother Breast, colon, and skin Stroke Mother Thyroid Mother Heart Mother Aortic valve replacement other (Congestive heart failure) Father Colon Polyps Sister Hypertension Sister Colon Cancer Sister 62 Prostate Cancer Brother other (Suicide, hx cluster headaches) Brother Colon Cancer Maternal Grandmother Arthritis Maternal Grandfather Rheumatoid Diabetes Paternal Aunt IDDM Patient Allergies ALLERGIES Allergen Reactions Amoxicillin Rash Hctz [Amiloride-Hyd* Intolerance REDNESS AND ITCHING Sulfa (Sulfonamide * Rash Augmentin [Amoxicil* GI Upset Cephalexin Intolerance Sore mouth and tongue Doxycycline Other: See Comments Headache Dust Mites Unknown Erythramycin [Other] GI Upset Grass Pollen Unknown Lisinopril Cough Trees Unknown Current Medications Current Outpatient Medications on File Prior to Visit Medication Sig promethazine (PHENERGAN) 25 mg tablet Take 1 tablet by mouth every 6 hours as needed for nausea/vomiting. L.acidophil/L.plantar/Bifido 7 (UP4 PROBIOTICS ADULT ORAL) Take by mouth. hydrOXYchloroQUINE (PLAQUENIL) 200 mg tablet One tab odd days and two tabs even days, per Rheum, Dr. Faria alendronate (FOSAMAX) 35 mg tablet Take 35 mg by mouth one time a week. In AM with cup of water on empty stomach. Nothing else by mouth and stay upright for 30 min. Cholecalciferol, Vitamin D3, 50 mcg (2,000 unit) cap Take 1 tablet by mouth once daily. sodium bicarbonate 650 mg tablet Take 1 tablet by mouth once daily. fluticasone 50 mcg/actuation nasal spray Use 2 Sprays in each nostril once daily. Rinse mouth after use. omeprazole 20 mg ORAL capsule Take 1 capsule by mouth once daily. montelukast sodium(SINGULAIR 10 MG TAB) take one tablet at bedtime No current facility-administered medications on file prior to visit. Social History Social History Tobacco Use Smoking status: Never Smokeless tobacco: Never Vaping Use Vaping Use: Never used Substance Use Topics Alcohol use: No Drug use: No Review of Symptoms REVIEW OF SYSTEMS GENERAL: No weight loss, malaise or fevers See hpi EXAM: BP 102/78 (BP Site: Left Arm, BP Position: Sitting, BP Cuff Size: Regular Adult) Pulse 64 Temp 36.9 C (98.4 F) Resp 16 Wt 66.7 kg (147 lb) SpO2 100% BMI 24.27 kg/m General Appearance: Well appearing, alert, in no acute distress, well-hydrated, well nourished.. Lungs: very faint rhonchi noted in mid right lung. Otherwise CTA. Heart: RRR without murmur, gallop, or rubs. No ectopy. Health Maintenance List HEPATITIS C SCREENING Never done SERUM CREATININE due on 05/17/2016 HEMOGLOBIN/HEMATOCRIT due on 10/26/2019 DIABETES SCREEN due on 01/17/2021 ADVANCE DIRECTIVE DISCUSSION due on 06/03/2023 MAMMOGRAM due on 01/13/2023 LIPID SCREEN due on 01/17/2023 ANNUAL PCP TEAM CHRONIC DISEASE VISIT due on 09/16/2023 BP CONTROLLED (<130/80) due on 09/16/2023 DTAP,TDAP,TD(3 - Td or Tdap) due on 01/01/2024 COLORECTAL CANCER SCREENING due on 01/27/2026 BONE DENSITY Completed INFLUENZA Completed COVID-19 VACCINE Completed PNEUMOCOCCAL: 65+ Completed DEPRESSION ASSESSMENT Discontinued SHINGRIX VACCINE Discontinued Data reviewed CXR 10/06/22 IMPRESSION: Improvement without resolution of the lingular infiltrate. A follow-up exam is recommended. ASSESSMENT/PLAN: 1. Bacterial pneumonia - ICD9: 482.9, ICD10: J15.9 Clinically improved. Mild rhonchi noted and xray still shows incomplete resolution of infiltrate. Will just recheck CXR in 1 month. If not fully resolved at that time, will pursue CT scan. Lazara Mcnulty PA-C documented in this encounter [facility] 10-09-2022 Miscellaneous Notes Pt notified of same. Pt will keep ov. Aydee Canela LPN Yes. I forgot we had that scheduled. I would like to listen to her lungs just to make sure i'm not hearing anything in that area. Lazara Mcnulty PA-C TC to patient who verbalizes understanding of providers message. Patient states she has no cough or congestion and she is feeling much better. Patient agreeable to 1 month CXR. Patient asking if she needs to keep her appointment scheduled for today for 3 week pneumonia follow up since she is no longer symptomatic. Patient requesting return call either way. Thank you. KATHRYN Medina Xray improved without full resolution. Make sure she has continued to improve clinically. No cough/congestion etc. If she is feeling okay, then we will get another CXR in 1 month. Patient to follow up in office if she is symptomatic at any time. Thanks. Lazara Mcnulty PA-C documented in this encounter [facility] 10-06-2022 Note HNO ID: [id number] Author: RT Lorenza(R) Service: Radiology Author Type: Technologist Type: Progress Notes Filed: 10/06/2022 11:15 AM Note Text: Radiology Service Progress Note PATIENT NAME: Richelle Cardozo DATE OF SERVICE: October 06, 2022 TIME: 11:09 AM PATIENT IDENTITY VERIFICATION COMPLETED USING TWO (2) IDENTIFIERS: Name and Date of confirmed by patient verbally. FALL SCREENING: Has the patient had 2 falls in the last year or 1 fall with injury or currently using an Ambulatory Assistive Device (Walker, Cane, Wheelchair, Crutches, etc.)? No PATIENT GENDER DATA: Female. status: : No status: NO. PATIENT RELEVANT IMPLANT DATA REVIEWED: Yes RADIOLOGY DEPARTMENT: General X-ray: Exam(s) Completed: Chest X-Ray PERIPHERAL IV DATA: Not applicable SIGNED BY: RT Lorenza(R) October 06, 2022 11:09 AM [facility] 09-15-2022 Note HNO ID: [id number] Author: Lazara Mcnulty PA-C Service: ? Author Type: Physician Wide Area Network Systems Administrator Type: Progress Notes Filed: 09/15/2022 9:14 AM Note Text: Chief Complaint Patient presents with: Recheck: cough HPI Richelle Cardozo is a 67 year old female who presents here today for EC follow up.. Patient was seen on 09/11/22. Was dx with pneumonia and given combo of doxy and ceftin. Patient states she is feeling better. States she has cough yet but it's clearing up. No chest pain or shortness of breath No fevers. Past medical history, appointments, medications, allergies reviewed. 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 Celiac disease CKD (chronic kidney disease) stage 3, GFR 30-59 ml/min ([facility]) 2013 Diverticulosis of colon 08/04/2005 Duodenitis without mention of hemorrhage 04/12/2010 Epidermal inclusion cyst 09/03/2017 Removed right knee 08/2017 Essential hypertension 07/30/2017 Family history of malignant neoplasm of gastrointestinal tract 01/07/2015 GERD (gastroesophageal reflux disease) 11/10/2014 GRANULOMA ANNULARE///ERYTHEMATOUS COND NEC 09/11/2008 History of DVT (deep vein thrombosis) 06/17/2009 First and only one was in lower extremity around 2006 Ichthyosis congenita Mixed hyperlipidemia 07/30/2017 Personal history of colonic polyps 03/15/2009 polyps / distal sigmoid Phlebitis and thrombophlebitis of other deep vessels of lower extremities 2009 DVT - Popliteal/Tibia 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 Hernandez, repeat 3 yrs COLONOSCOPY FLX DX W/COLLJ SPEC WHEN PFRMD 05/12/2004 Colonoscopy COLONOSCOPY FLX DX W/COLLJ SPEC WHEN PFRMD 08/04/2005 Colonoscopy, no further polyps - Repeat in 3-5 years COLONOSCOPY FLX DX W/COLLJ SPEC WHEN PFRMD 04/12/2010 Colonoscopy, repeat 5 years COLONOSCOPY FLX DX W/COLLJ SPEC WHEN PFRMD 01/07/2015 Colonoscopy COLONOSCOPY FLX DX W/COLLJ SPEC WHEN PFRMD 01/27/2021 COLONOSCOPY, SCREENING, HIGH RISK 03/01/2001 X-2 ENDOMETRIAL BX W/WO ENDOCERVIX BX W/O DILAT SPX ESOPHAGOGASTRODUODENOSCOPY TRANSORAL DIAGNOSTIC 04/12/2010 EGD LIG/TRNSXJ FLP TUBE ABDL/VAG APPR UNI/BI 1989 Tubal ligation PAST SURGICAL HISTORY OF 04/2013 Tubes placed in ears bilaterally PAST SURGICAL HISTORY OF 09/2014 Kidney bx SKIN BIOPSY HX STRESS TEST 03/2007 NL TONSILLECTOMY HX TX ECTOPIC W/O SALPINGAND/OOPHORECTOMY Ectopic Family History FAMILY HISTORY Problem Relation Age of Onset Colon Cancer Mother 70 Cancer Mother Breast, colon, and skin Stroke Mother Thyroid Mother Heart Mother Aortic valve replacement other (Congestive heart failure) Father Colon Polyps Sister Hypertension Sister Colon Cancer Sister 62 Prostate Cancer Brother other (Suicide, hx cluster headaches) Brother Colon Cancer Maternal Grandmother Arthritis Maternal Grandfather Rheumatoid Diabetes Paternal Aunt IDDM Patient Allergies ALLERGIES Allergen Reactions Amoxicillin Rash Hctz [Amiloride-Hyd* Intolerance REDNESS AND ITCHING Sulfa (Sulfonamide * Rash Augmentin [Amoxicil* GI Upset Cephalexin Intolerance Sore mouth and tongue Doxycycline Other: See Comments Headache Dust Mites Unknown Erythramycin [Other] GI Upset Grass Pollen Unknown Lisinopril Cough Trees Unknown Current Medications Current Outpatient Medications on File Prior to Visit Medication Sig doxycycline monohydrate 100 mg tablet Take 1 tablet by mouth twice daily for 7 days. cefUROXime (CEFTIN) 500 mg tablet Take 1 tablet by mouth twice daily for 7 days. promethazine (PHENERGAN) 25 mg tablet Take 1 tablet by mouth every 6 hours as needed for nausea/vomiting. L.acidophil/L.plantar/Bifido 7 (UP4 PROBIOTICS ADULT ORAL) Take by mouth. hydrOXYchloroQUINE (PLAQUENIL) 200 mg tablet One tab odd days and two tabs even days, per Rheum, Dr. Faria alendronate (FOSAMAX) 35 mg tablet Take 35 mg by mouth one time a week. In AM with cup of water on empty stomach. Nothing else by mouth and stay upright for 30 min. Cholecalciferol, Vitamin D3, 50 mcg (2,000 unit) cap Take 1 tablet by mouth once daily. sodium bicarbonate 650 mg tablet Take 1 tablet by mouth once daily. fluticasone 50 mcg/actuation nasal spray Use 2 Sprays in each nostril once daily. Rinse mouth after use. omeprazole 20 mg ORAL capsule Take 1 capsule by (more content not included)... [facility] 09-15-2022 History of Present illness Narrative Chief Complaint Patient presents with: Recheck: cough HPI Richelle Cardozo is a 67 year old female who presents here today for EC follow up.. Patient was seen on 09/11/22. Was dx with pneumonia and given combo of doxy and ceftin. Patient states she is feeling better. States she has cough yet but it's clearing up. No chest pain or shortness of breath No fevers. Past medical history, appointments, medications, allergies reviewed. 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 Celiac disease CKD (chronic kidney disease) stage 3, GFR 30-59 ml/min ([facility]) 2013 Diverticulosis of colon 08/04/2005 Duodenitis without mention of hemorrhage 04/12/2010 Epidermal inclusion cyst 09/03/2017 Removed right knee 08/2017 Essential hypertension 07/30/2017 Family history of malignant neoplasm of gastrointestinal tract 01/07/2015 GERD (gastroesophageal reflux disease) 11/10/2014 GRANULOMA ANNULARE///ERYTHEMATOUS COND NEC 09/11/2008 History of DVT (deep vein thrombosis) 06/17/2009 First and only one was in lower extremity around 2006 Ichthyosis congenita Mixed hyperlipidemia 07/30/2017 Personal history of colonic polyps 03/15/2009 polyps / distal sigmoid Phlebitis and thrombophlebitis of other deep vessels of lower extremities 2009 DVT - Popliteal/Tibia 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 Hernandez, repeat 3 yrs COLONOSCOPY FLX DX W/COLLJ SPEC WHEN PFRMD 05/12/2004 Colonoscopy COLONOSCOPY FLX DX W/COLLJ SPEC WHEN PFRMD 08/04/2005 Colonoscopy, no further polyps - Repeat in 3-5 years COLONOSCOPY FLX DX W/COLLJ SPEC WHEN PFRMD 04/12/2010 Colonoscopy, repeat 5 years COLONOSCOPY FLX DX W/COLLJ SPEC WHEN PFRMD 01/07/2015 Colonoscopy COLONOSCOPY FLX DX W/COLLJ SPEC WHEN PFRMD 01/27/2021 COLONOSCOPY, SCREENING, HIGH RISK 03/01/2001 X-2 ENDOMETRIAL BX W/WO ENDOCERVIX BX W/O DILAT SPX ESOPHAGOGASTRODUODENOSCOPY TRANSORAL DIAGNOSTIC 04/12/2010 EGD LIG/TRNSXJ FLP TUBE ABDL/VAG APPR UNI/BI 1989 Tubal ligation PAST SURGICAL HISTORY OF 04/2013 Tubes placed in ears bilaterally PAST SURGICAL HISTORY OF 09/2014 Kidney bx SKIN BIOPSY HX STRESS TEST 03/2007 NL TONSILLECTOMY HX TX ECTOPIC W/O SALPING&/OOPHORECTOMY Ectopic Family History FAMILY HISTORY Problem Relation Age of Onset Colon Cancer Mother 70 Cancer Mother Breast, colon, and skin Stroke Mother Thyroid Mother Heart Mother Aortic valve replacement other (Congestive heart failure) Father Colon Polyps Sister Hypertension Sister Colon Cancer Sister 62 Prostate Cancer Brother other (Suicide, hx cluster headaches) Brother Colon Cancer Maternal Grandmother Arthritis Maternal Grandfather Rheumatoid Diabetes Paternal Aunt IDDM Patient Allergies ALLERGIES Allergen Reactions Amoxicillin Rash Hctz [Amiloride-Hyd* Intolerance REDNESS AND ITCHING Sulfa (Sulfonamide * Rash Augmentin [Amoxicil* GI Upset Cephalexin Intolerance Sore mouth and tongue Doxycycline Other: See Comments Headache Dust Mites Unknown Erythramycin [Other] GI Upset Grass Pollen Unknown Lisinopril Cough Trees Unknown Current Medications Current Outpatient Medications on File Prior to Visit Medication Sig doxycycline monohydrate 100 mg tablet Take 1 tablet by mouth twice daily for 7 days. cefUROXime (CEFTIN) 500 mg tablet Take 1 tablet by mouth twice daily for 7 days. promethazine (PHENERGAN) 25 mg tablet Take 1 tablet by mouth every 6 hours as needed for nausea/vomiting. L.acidophil/L.plantar/Bifido 7 (UP4 PROBIOTICS ADULT ORAL) Take by mouth. hydrOXYchloroQUINE (PLAQUENIL) 200 mg tablet One tab odd days and two tabs even days, per Rheum, Dr. Faria alendronate (FOSAMAX) 35 mg tablet Take 35 mg by mouth one time a week. In AM with cup of water on empty stomach. Nothing else by mouth and stay upright for 30 min. Cholecalciferol, Vitamin D3, 50 mcg (2,000 unit) cap Take 1 tablet by mouth once daily. sodium bicarbonate 650 mg tablet Take 1 tablet by mouth once daily. fluticasone 50 mcg/actuation nasal spray Use 2 Sprays in each nostril once daily. Rinse mouth after use. omeprazole 20 mg ORAL capsule Take 1 capsule by mouth once daily. montelukast sodium(SINGULAIR 10 MG TAB) take one tablet at bedtime albuterol HFA (VENTOLIN HFA) 90 mcg/actuation inhaler Inhale 2 Puffs as instructed every 4 hours as needed. promethazine (PHENERGAN) 25 mg tablet Take 1 tablet by mouth every 6 hours as needed for nausea/vomiting. No current facility-administered medications on file prior to visit. Social History Social History Tobacco Use Smoking status: Never Smokeless tobacco: Never Vaping Use Vaping Use: Never used Substance Use Topics Alcohol use: No Drug use: No Review of Symptoms REVIEW OF SYSTEMS See hpi EXAM: BP 108/76 (BP Site: Left Arm, BP Position: Sitting, BP Cuff Size: Regular Adult) Pulse 98 Temp 36.5 C (97.7 F) Resp 18 Wt 66.2 kg (146 lb) SpO2 99% BMI 24.11 kg/m General Appearance: Well appearing, alert, in no acute distress, well-hydrated, well nourished.. Lungs: wheezes and rhonchi present. Worse in Left lung. Heart: RRR without murmur, gallop, or rubs. No ectopy. Health Maintenance List HEPATITIS C SCREENING Never done SERUM CREATININE due on 05/17/2016 HEMOGLOBIN/HEMATOCRIT due on 10/26/2019 DIABETES SCREEN due on 01/17/2021 ADVANCE DIRECTIVE DISCUSSION due on 06/03/2023 MAMMOGRAM due on 01/13/2023 LIPID SCREEN due on 01/17/2023 ANNUAL PCP TEAM CHRONIC DISEASE VISIT due on 08/11/2023 BP CONTROLLED (<130/80) due on 09/12/2023 DTAP,TDAP,TD(3 - Td or Tdap) due on 01/01/2024 COLORECTAL CANCER SCREENING due on 01/27/2026 BONE DENSITY Completed INFLUENZA Completed COVID-19 VACCINE Completed PNEUMOCOCCAL: 65+ Completed DEPRESSION ASSESSMENT Discontinued SHINGRIX VACCINE Discontinued Data reviewed CXR 09/11/22 IMPRESSION: Airspace opacity in the periphery of the left base with suggestion of central lucency. Although findings may be related to pneumonia with possible central cavitation, more aggressive process certainly not excluded. Clinical correlation requested and either short-term follow-up radiographs after appropriate interval treatment or further evaluation with contrast-enhanced CT chest is advised. ASSESSMENT/PLAN: 1. Bacterial pneumonia - ICD9: 482.9, ICD10: J15.9 Improving. Will get repeat CXR in about 3 weeks. Patient to follow up in 3 weeks for recheck. Sooner as needed. - XR CHEST 2V FRONTAL/LAT Lazara Mcnulty PA-C documented in this encounter [facility] 09-11-2022 Note HNO ID: [id number] Author: Fouzia Quiroz PA-C Service: ? Author Type: Physician Wide Area Network Systems Administrator Type: Progress Notes Filed: 09/11/2022 11:45 AM Note Text: This note was created using [employer]. Luli Cardozo is a 67 year old female. HPI Patient presents with a chief complaint of cough and chest congestion for 10 days. She has had fevers off and on. Temp here 99.6. She has used Robitussin [id number] without relief. Her grandkids were sick recently with cold symptoms. Home COVID test was negative. She has been nauseous. No vomiting or diarrhea. She has had some shortness of breath. Review of Systems Constitutional: Positive for fatigue and fever. HENT: Positive for congestion, rhinorrhea and sinus pressure. Respiratory: Positive for cough and shortness of breath. Gastrointestinal: Positive for nausea. Genitourinary: Negative. Musculoskeletal: Negative. All other systems reviewed and are negative. 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 Celiac disease CKD (chronic kidney disease) stage 3, GFR 30-59 ml/min ([facility]LY [facility]) 2013 Diverticulosis of colon 08/04/2005 Duodenitis without mention of hemorrhage 04/12/2010 Epidermal inclusion cyst 09/03/2017 Removed right knee 08/2017 Essential hypertension 07/30/2017 Family history of malignant neoplasm of gastrointestinal tract 01/07/2015 GERD (gastroesophageal reflux disease) 11/10/2014 GRANULOMA ANNULARE///ERYTHEMATOUS COND NEC 09/11/2008 History of DVT (deep vein thrombosis) 06/17/2009 First and only one was in lower extremity around 2006 Ichthyosis congenita Mixed hyperlipidemia 07/30/2017 Personal history of colonic polyps 03/15/2009 polyps / distal sigmoid Phlebitis and thrombophlebitis of other deep vessels of lower extremities 2009 DVT - Popliteal/Tibia 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 hydrOXYchloroQUINE (PLAQUENIL) 200 mg tablet One tab odd days and two tabs even days, per Rheum, Dr. Faria alendronate (FOSAMAX) 35 mg tablet Take 35 mg by mouth one time a week. In AM with cup of water on empty stomach. Nothing else by mouth and stay upright for 30 min. Cholecalciferol, Vitamin D3, 50 mcg (2,000 unit) cap Take 1 tablet by mouth once daily. sodium bicarbonate 650 mg tablet Take 1 tablet by mouth once daily. fluticasone 50 mcg/actuation nasal spray Use 2 Sprays in each nostril once daily. Rinse mouth after use. 0 omeprazole 20 mg ORAL capsule Take 1 capsule by mouth once daily. 90 capsule 3 montelukast sodium(SINGULAIR 10 MG TAB) take one tablet at bedtime 90 4 doxycycline monohydrate 100 mg tablet Take 1 tablet by mouth twice daily for 7 days. 14 tablet 0 cefUROXime (CEFTIN) 500 mg tablet Take 1 tablet by mouth twice daily for 7 days. 14 tablet 0 promethazine (PHENERGAN) 25 mg tablet Take 1 tablet by mouth every 6 hours as needed for nausea/vomiting. 15 tablet 0 albuterol HFA (VENTOLIN HFA) 90 mcg/actuation inhaler Inhale 2 Puffs as instructed every 4 hours as needed. 18 g 0 promethazine (PHENERGAN) 25 mg tablet Take 1 tablet by mouth every 6 hours as needed for nausea/vomiting. 15 tablet 0 No current facility-administered medications for this visit. PAST SURGICAL HISTORY Procedure Laterality Date BIOPSY CERVIX SINGLE/MULT/EXCISION OF LESION SPX CHOLECYSTECTOMY 1976 Cholecystectomy COLONOSCOPY 01/07/2018 Dr. Hernandez, repeat 3 yrs COLONOSCOPY FLX DX W/COLLJ SPEC WHEN PFRMD 05/12/2004 Colonoscopy COLONOSCOPY FLX DX W/COLLJ SPEC WHEN PFRMD 08/04/2005 Colonoscopy, no further polyps - Repeat in 3-5 years COLONOSCOPY FLX DX W/COLLJ SPEC WHEN PFRMD 04/12/2010 Colonoscopy, repeat 5 years COLONOSCOPY FLX DX W/COLLJ SPEC WHEN PFRMD 01/07/2015 Colonoscopy COLONOSCOPY FLX DX W/COLLJ SPEC WHEN PFRMD 01/27/2021 COLONOSCOPY, SCREENING, HIGH RISK 03/01/2001 X-2 ENDOMETRIAL BX W/WO ENDOCERVIX BX W/O DILAT SPX ESOPHAGOGASTRODUODENOSCOPY TRANSORAL DIAGNOSTIC 04/12/2010 EGD LIG/TRNSXJ FLP TUBE ABDL/VAG APPR UNI/BI 1989 Tubal ligation PAST SURGICAL HISTORY OF 04/2013 Tubes placed in ears bilaterally PAST SURGICAL HISTORY OF 09/2014 Kidney bx SKIN BIOPSY HX STRESS TEST 03/2007 NL TONSILLECTOMY HX TX ECTOPIC W/O SALPINGAND/OOPHORECTOMY Ectopic FAMILY HISTORY Problem Relation Age of Onset Colon Cancer Mother 70 Cancer Mother Breast, colon, and skin Stroke Mother Thyroid Mother Heart Mother Aortic valve replacemen (more content not included)... [facility] 09-11-2022 Note HNO ID: [id number] Author: RT Lorenza(R) Service: Radiology Author Type: Technologist Type: Progress Notes Filed: 09/11/2022 11:01 AM Note Text: Radiology Service Progress Note PATIENT NAME: Richelle Cardozo DATE OF SERVICE: September 11, 2022 TIME: 10:51 AM PATIENT IDENTITY VERIFICATION COMPLETED USING TWO (2) IDENTIFIERS: Name and Date of confirmed by patient verbally. FALL SCREENING: Has the patient had 2 falls in the last year or 1 fall with injury or currently using an Ambulatory Assistive Device (Walker, Cane, Wheelchair, Crutches, etc.)? No PATIENT GENDER DATA: Female. status: : No status: NO. PATIENT RELEVANT IMPLANT DATA REVIEWED: Yes RADIOLOGY DEPARTMENT: General X-ray: Exam(s) Completed: Chest X-Ray PERIPHERAL IV DATA: Not applicable SIGNED BY: RT Lorenza(R) September 11, 2022 10:51 AM [facility] 09-11-2022 History of Present illness Narrative This note was created using Allvoicesriter. Subjective Richelle Cardozo is a 67 year old female. HPI Patient presents with a chief complaint of cough and chest congestion for 10 days. She has had fevers off and on. Temp here 99.6. She has used Robitussin [id number] without relief. Her grandkids were sick recently with cold symptoms. Home COVID test was negative. She has been nauseous. No vomiting or diarrhea. She has had some shortness of breath. Review of Systems Constitutional: Positive for fatigue and fever. HENT: Positive for congestion, rhinorrhea and sinus pressure. Respiratory: Positive for cough and shortness of breath. Gastrointestinal: Positive for nausea. Genitourinary: Negative. Musculoskeletal: Negative. All other systems reviewed and are negative. 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 Celiac disease CKD (chronic kidney disease) stage 3, GFR 30-59 ml/min ([facility]) 2013 Diverticulosis of colon 08/04/2005 Duodenitis without mention of hemorrhage 04/12/2010 Epidermal inclusion cyst 09/03/2017 Removed right knee 08/2017 Essential hypertension 07/30/2017 Family history of malignant neoplasm of gastrointestinal tract 01/07/2015 GERD (gastroesophageal reflux disease) 11/10/2014 GRANULOMA ANNULARE///ERYTHEMATOUS COND NEC 09/11/2008 History of DVT (deep vein thrombosis) 06/17/2009 First and only one was in lower extremity around 2006 Ichthyosis congenita Mixed hyperlipidemia 07/30/2017 Personal history of colonic polyps 03/15/2009 polyps / distal sigmoid Phlebitis and thrombophlebitis of other deep vessels of lower extremities 2009 DVT - Popliteal/Tibia 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 hydrOXYchloroQUINE (PLAQUENIL) 200 mg tablet One tab odd days and two tabs even days, per Rheum, Dr. Faria alendronate (FOSAMAX) 35 mg tablet Take 35 mg by mouth one time a week. In AM with cup of water on empty stomach. Nothing else by mouth and stay upright for 30 min. Cholecalciferol, Vitamin D3, 50 mcg (2,000 unit) cap Take 1 tablet by mouth once daily. sodium bicarbonate 650 mg tablet Take 1 tablet by mouth once daily. fluticasone 50 mcg/actuation nasal spray Use 2 Sprays in each nostril once daily. Rinse mouth after use. 0 omeprazole 20 mg ORAL capsule Take 1 capsule by mouth once daily. 90 capsule 3 montelukast sodium(SINGULAIR 10 MG TAB) take one tablet at bedtime 90 4 doxycycline monohydrate 100 mg tablet Take 1 tablet by mouth twice daily for 7 days. 14 tablet 0 cefUROXime (CEFTIN) 500 mg tablet Take 1 tablet by mouth twice daily for 7 days. 14 tablet 0 promethazine (PHENERGAN) 25 mg tablet Take 1 tablet by mouth every 6 hours as needed for nausea/vomiting. 15 tablet 0 albuterol HFA (VENTOLIN HFA) 90 mcg/actuation inhaler Inhale 2 Puffs as instructed every 4 hours as needed. 18 g 0 promethazine (PHENERGAN) 25 mg tablet Take 1 tablet by mouth every 6 hours as needed for nausea/vomiting. 15 tablet 0 No current facility-administered medications for this visit. PAST SURGICAL HISTORY Procedure Laterality Date BIOPSY CERVIX SINGLE/MULT/EXCISION OF LESION SPX CHOLECYSTECTOMY 1976 Cholecystectomy COLONOSCOPY 01/07/2018 Dr. Hernandez, repeat 3 yrs COLONOSCOPY FLX DX W/COLLJ SPEC WHEN PFRMD 05/12/2004 Colonoscopy COLONOSCOPY FLX DX W/COLLJ SPEC WHEN PFRMD 08/04/2005 Colonoscopy, no further polyps - Repeat in 3-5 years COLONOSCOPY FLX DX W/COLLJ SPEC WHEN PFRMD 04/12/2010 Colonoscopy, repeat 5 years COLONOSCOPY FLX DX W/COLLJ SPEC WHEN PFRMD 01/07/2015 Colonoscopy COLONOSCOPY FLX DX W/COLLJ SPEC WHEN PFRMD 01/27/2021 COLONOSCOPY, SCREENING, HIGH RISK 03/01/2001 X-2 ENDOMETRIAL BX W/WO ENDOCERVIX BX W/O DILAT SPX ESOPHAGOGASTRODUODENOSCOPY TRANSORAL DIAGNOSTIC 04/12/2010 EGD LIG/TRNSXJ FLP TUBE ABDL/VAG APPR UNI/BI 1989 Tubal ligation PAST SURGICAL HISTORY OF 04/2013 Tubes placed in ears bilaterally PAST SURGICAL HISTORY OF 09/2014 Kidney bx SKIN BIOPSY HX STRESS TEST 03/2007 NL TONSILLECTOMY HX TX ECTOPIC W/O SALPING&/OOPHORECTOMY Ectopic FAMILY HISTORY Problem Relation Age of Onset Colon Cancer Mother 70 Cancer Mother Breast, colon, and skin Stroke Mother Thyroid Mother Heart Mother Aortic valve replacement other (Congestive heart failure) Father Colon Polyps Sister Hypertension Sister Colon Cancer Sister 62 Prostate Cancer Brother other (Suicide, hx cluster headaches) Brother Colon Cancer Maternal Grandmother Arthritis Maternal Grandfather Rheumatoid Diabetes Paternal Aunt IDDM Social History Tobacco Use Smoking status: Never Smokeless tobacco: Never Vaping Use Vaping Use: Never used Substance Use Topics Alcohol use: No Drug use: No Objective BP 122/62 Pulse 114 Temp 37.6 C (99.6 F) Resp 18 Wt 67.1 kg (148 lb) SpO2 95% BMI 24.44 kg/m Physical Exam Vitals reviewed. Constitutional: Appearance: Normal appearance. HENT: Head: Normocephalic and atraumatic. Right Ear: Tympanic membrane, ear canal and external ear normal. Left Ear: Tympanic membrane, ear canal and external ear normal. Nose: Congestion present. Mouth/Throat: Mouth: Mucous membranes are moist. Pharynx: Oropharynx is clear. Cardiovascular: Rate and Rhythm: Regular rhythm. Tachycardia present. Heart sounds: Normal heart sounds. Pulmonary: Effort: Pulmonary effort is normal. No respiratory distress. Breath sounds: Rhonchi and rales present. No wheezing. Musculoskeletal: Cervical back: Neck supple. Lymphadenopathy: Cervical: No cervical adenopathy. Skin: General: Skin is warm and dry. Neurological: General: No focal deficit present. Mental Status: She is alert and oriented to person, place, and time. Assessment and Plan ASSESSMENT/PLAN: 1. Bacterial pneumonia - ICD9: 482.9, ICD10: J15.9 Chest x-ray shows pneumonia in the left lower lung, recommended repeat imaging to ensure resolution or possible CT. Discussed with patient her allergy list. She lists doxycycline as a headache, not true allergy to doxycycline. She has had cefadroxil and Omnicef as well without any difficulty. List Keflex as a sore on her tongue. Discussed the option of doxycycline and Ceftin versus Levaquin, patient preferred doxycycline and Ceftin. I will have her have close follow-up with PCP. Red flags to be seen in the ER discussed. Patient agreeable with plan. Discussed with Dr. Prakash as well. - XR CHEST 2V FRONTAL/LAT Fouzia Quiroz PA-C documented in this encounter [facility] 09-07-2022 Note HNO ID: [id number] Author: Kimberly Fields MA Service: ? Author Type: Forest Worker Type: Progress Notes Filed: 09/07/2022 4:19 PM Note Text: Scan on 09/02/2022 12:53 AM by External Provider: Consultation - Orthopedics Kimberly Fields MA [facility] 09-07-2022 History of Present illness Narrative Scan on 09/02/2022 12:53 AM by External Provider: Consultation - Orthopedics Kimberly Fields MA documented in this encounter [facility] 08-10-2022 Note HNO ID: [id number] Author: Alicia Hamlin APRN.REBECCA Service: ? Author Type: Nurse Practitioner Type: Progress Notes Filed: 08/10/2022 5:25 PM Note Text: Richelle Cardozo is a 67 year old female here for a Medicare Initial Annual Wellness Visit Health Risk Assessment In general, health is: Very good Concerns with balance: Not at all Concerns with teeth or dentures: Not at all Concerns with sexual function: Not at all [place] anxious, stressed, angry, irritable, lonely, isolated, or had thoughts of hurting themself: Not at all Has little interest or pleasure in doing things: Not at all Bothered by feeling down, depressed, or hopeless: Not at all Needs help with grocery shopping, cooking, housework, bathing, grooming, dressing, eating, sitting or standing, walking, using the toilet, handling finances, taking medications, using the telephone, or driving: No Following safety precautions in the home environment and vehicle: removed throw rugs from floors, installed grab bars in the bathroom, handrails in stairwells, having adequate lighting, wearing seatbelt at all times?: Yes Smokes cigarettes, vapes, or chew tobacco: No Eats healthy foods including fruits, vegetables, whole grains, and fiber-rich foods: Nearly every day Number of days per week engages in exercise: 4 days Average alcohol consumption: Never Current Providers Specialists: I have reviewed specialist-related care of the patient in the medical record. Medical/Family history review Reviewed and updated problem list, medical/surgical/family/social history, medications, and allergies. Opioid use review Patient is not currently using opioids. Depression screening Depression Screening PHQ-2 Score PHQ-9 Score SONJA-2 Total Score 08/03/2022 0 0 - Depression screening tool completed and reviewed. Based on score and interview, patient is not at risk for depression. Screening tool discussed with patient, and I recommended no further intervention at this time. Cognitive screening Mini Cog Score: Score: 5 Cognitive screening reviewed and no further action needed (score 3-5) Functional Observation Was the patient's timed Up AND Go test unsteady or ? 12 seconds? No Advance Care Planning End of Life planning discussed, including patient's advanced directive wishes: No Measurements BP 124/80 Pulse 80 Resp 14 Wt 153 lb (69.4kg) Visual acuity (required for Welcome to Medicare): follows with optometry/ophthalmology Hearing Evaluation: within normal limits Assessment/Plan - Counseled on healthy diet and regular exercise - Fall avoidance - ECG screening (Welcome to Medicare) - Depression screening Chief Complaint Patient presents with: Medicare Wellness Exam HPI Richelle Cardozo is a 67 year old female who presents here today for Above Complaints.. Patient presents for wellness exam. Patient states overall she feels well. Patient follows with rheumatology, nephrology and ophthalmology. Past medical history, appointments, medications, allergies reviewed. 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 Celiac disease CKD (chronic kidney disease) stage 3, GFR 30-59 ml/min ([facility]) 2013 Diverticulosis of colon 08/04/2005 Duodenitis without mention of hemorrhage 04/12/2010 Epidermal inclusion cyst 09/03/2017 Removed right knee 08/2017 Essential hypertension 07/30/2017 Family history of malignant neoplasm of gastrointestinal tract 01/07/2015 GERD (gastroesophageal reflux disease) 11/10/2014 GRANULOMA ANNULARE///ERYTHEMATOUS COND NEC 09/11/2008 History of DVT (deep vein thrombosis) 06/17/2009 First and only one was in lower extremity around 2006 Ichthyosis congenita Mixed hyperlipidemia 07/30/2017 Personal history of colonic polyps 03/15/2009 polyps / distal sigmoid Phlebitis and thrombophlebitis of other deep vessels of lower extremities 2009 DVT - Popliteal/Tibia 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 Hernandez, repeat 3 yrs COLONOSCOPY FLX DX W/COLLJ SPEC WHEN PFRMD 05/12/2004 Colonoscopy COLONOSCOPY FLX DX W/COLLJ SPEC WHEN PFRMD 08/04/2005 Colonoscopy, no further polyps - Repeat in 3-5 years COLONOSCOPY FLX DX W/COLLJ SPEC WHEN PFRMD 04/12/2010 Colonoscopy, repeat 5 years COLONOSCOPY FLX DX W/COLLJ SPEC WHEN PFRMD 01/07/2015 Colonoscopy COLONOSCOPY FLX DX W/COLLJ SPEC WHEN PFRMD (more content not included)... [facility] 08-10-2022 Instructions Alicia Hamlin APRN.CNP - 08/10/2022 4:49 PM EST Will notify patient of labs ordered once results received from resident services coordinator Continue current medications Continue follow up with specialists as scheduled Follow up in 1 year documented in this encounter [facility] 08-10-2022 History of Present illness Narrative Richelle Cardozo is a 67 year old female here for a Medicare Initial Annual Wellness Visit Health Risk Assessment In general, health is: Very good Concerns with balance: Not at all Concerns with teeth or dentures: Not at all Concerns with sexual function: Not at all [place] anxious, stressed, angry, irritable, lonely, isolated, or had thoughts of hurting themself: Not at all Has little interest or pleasure in doing things: Not at all Bothered by feeling down, depressed, or hopeless: Not at all Needs help with grocery shopping, cooking, housework, bathing, grooming, dressing, eating, sitting or standing, walking, using the toilet, handling finances, taking medications, using the telephone, or driving: No Following safety precautions in the home environment and vehicle: removed throw rugs from floors, installed grab bars in the bathroom, handrails in stairwells, having adequate lighting, wearing seatbelt at all times?: Yes Smokes cigarettes, vapes, or chew tobacco: No Eats healthy foods including fruits, vegetables, whole grains, and fiber-rich foods: Nearly every day Number of days per week engages in exercise: 4 days Average alcohol consumption: Never Current Providers Specialists: I have reviewed specialist-related care of the patient in the medical record. Medical/Family history review Reviewed and updated problem list, medical/surgical/family/social history, medications, and allergies. Opioid use review Patient is not currently using opioids. Depression screening Depression Screening PHQ-2 Score PHQ-9 Score SONJA-2 Total Score 08/03/2022 0 0 - Depression screening tool completed and reviewed. Based on score and interview, patient is not at risk for depression. Screening tool discussed with patient, and I recommended no further intervention at this time. Cognitive screening Mini Cog Score: Score: 5 Cognitive screening reviewed and no further action needed (score 3-5) Functional Observation Was the patient's timed Up & Go test unsteady or ? 12 seconds? No Advance Care Planning End of Life planning discussed, including patient's advanced directive wishes: No Measurements BP 124/80 Pulse 80 Resp 14 Wt 153 lb (69.4kg) Visual acuity (required for Welcome to Medicare): follows with optometry/ophthalmology Hearing Evaluation: within normal limits Assessment/Plan - Counseled on healthy diet and regular exercise - Fall avoidance - ECG screening (Welcome to Medicare) - Depression screening Chief Complaint Patient presents with: Medicare Wellness Exam HPI Richelle Cardozo is a 67 year old female who presents here today for Above Complaints.. Patient presents for wellness exam. Patient states overall she feels well. Patient follows with rheumatology, nephrology and ophthalmology. Past medical history, appointments, medications, allergies reviewed. 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 Celiac disease CKD (chronic kidney disease) stage 3, GFR 30-59 ml/min ([facility]) 2013 Diverticulosis of colon 08/04/2005 Duodenitis without mention of hemorrhage 04/12/2010 Epidermal inclusion cyst 09/03/2017 Removed right knee 08/2017 Essential hypertension 07/30/2017 Family history of malignant neoplasm of gastrointestinal tract 01/07/2015 GERD (gastroesophageal reflux disease) 11/10/2014 GRANULOMA ANNULARE///ERYTHEMATOUS COND NEC 09/11/2008 History of DVT (deep vein thrombosis) 06/17/2009 First and only one was in lower extremity around 2006 Ichthyosis congenita Mixed hyperlipidemia 07/30/2017 Personal history of colonic polyps 03/15/2009 polyps / distal sigmoid Phlebitis and thrombophlebitis of other deep vessels of lower extremities 2009 DVT - Popliteal/Tibia 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 Hernandez, repeat 3 yrs COLONOSCOPY FLX DX W/COLLJ SPEC WHEN PFRMD 05/12/2004 Colonoscopy COLONOSCOPY FLX DX W/COLLJ SPEC WHEN PFRMD 08/04/2005 Colonoscopy, no further polyps - Repeat in 3-5 years COLONOSCOPY FLX DX W/COLLJ SPEC WHEN PFRMD 04/12/2010 Colonoscopy, repeat 5 years COLONOSCOPY FLX DX W/COLLJ SPEC WHEN PFRMD 01/07/2015 Colonoscopy COLONOSCOPY FLX DX W/COLLJ SPEC WHEN PFRMD 01/27/2021 COLONOSCOPY, SCREENING, HIGH RISK 03/01/2001 X-2 ENDOMETRIAL BX W/WO ENDOCERVIX BX W/O DILAT SPX ESOPHAGOGASTRODUODENOSCOPY TRANSORAL DIAGNOSTIC 04/12/2010 EGD LIG/TRNSXJ FLP TUBE ABDL/VAG APPR UNI/BI 1989 Tubal ligation PAST SURGICAL HISTORY OF 04/2013 Tubes placed in ears bilaterally PAST SURGICAL HISTORY OF 09/2014 Kidney bx SKIN BIOPSY HX STRESS TEST 03/2007 NL TONSILLECTOMY HX TX ECTOPIC W/O SALPING&/OOPHORECTOMY Ectopic Family History FAMILY HISTORY Problem Relation Age of Onset Colon Cancer Mother 70 Cancer Mother Breast, colon, and skin Stroke Mother Thyroid Mother Heart Mother Aortic valve replacement other (Congestive heart failure) Father Colon Polyps Sister Hypertension Sister Colon Cancer Sister 62 Prostate Cancer Brother other (Suicide, hx cluster headaches) Brother Colon Cancer Maternal Grandmother Arthritis Maternal Grandfather Rheumatoid Diabetes Paternal Aunt IDDM Patient Allergies ALLERGIES Allergen Reactions Amoxicillin Rash Hctz [Amiloride-Hyd* Intolerance REDNESS AND ITCHING Sulfa (Sulfonamide * Rash Augmentin [Amoxicil* GI Upset Cephalexin Intolerance Sore mouth and tongue Doxycycline Other: See Comments Headache Dust Mites Unknown Erythramycin [Other] GI Upset Grass Pollen Unknown Lisinopril Cough Trees Unknown Current Medications Current Outpatient Medications on File Prior to Visit Medication Sig L.acidophil/L.plantar/Bifido 7 (UP4 PROBIOTICS ADULT ORAL) Take by mouth. hydrOXYchloroQUINE (PLAQUENIL) 200 mg tablet One tab odd days and two tabs even days, per Rheum, Dr. Faria alendronate (FOSAMAX) 35 mg tablet Take 35 mg by mouth one time a week. In AM with cup of water on empty stomach. Nothing else by mouth and stay upright for 30 min. Cholecalciferol, Vitamin D3, 50 mcg (2,000 unit) cap Take 1 tablet by mouth once daily. sodium bicarbonate 650 mg tablet Take 1 tablet by mouth once daily. fluticasone 50 mcg/actuation nasal spray Use 2 Sprays in each nostril once daily. Rinse mouth after use. omeprazole 20 mg ORAL capsule Take 1 capsule by mouth once daily. montelukast sodium(SINGULAIR 10 MG TAB) take one tablet at bedtime albuterol HFA (VENTOLIN HFA) 90 mcg/actuation inhaler Inhale 2 Puffs as instructed every 4 hours as needed. promethazine (PHENERGAN) 25 mg tablet Take 1 tablet by mouth every 6 hours as needed for nausea/vomiting. No current facility-administered medications on file prior to visit. Social History Social History Tobacco Use Smoking status: Never Smokeless tobacco: Never Vaping Use Vaping Use: Never used Substance Use Topics Alcohol use: No Drug use: No Review of Symptoms REVIEW OF SYSTEMS GENERAL: No weight loss, malaise or fevers RESPIRATORY: Negative for cough, hemoptysis, wheezing, COPD, dyspnea or shortness of breath CARDIOVASCULAR: Negative for chest pain, leg swelling, hypertension, CHF or palpitations GI: No nausea, vomiting, or diarrhea : No history of dysuria, frequency or incontinence MUSCULOSKELETAL: Negative for joint pain or swelling, back pain or muscle pain SKIN: Negative for lesions, rash, and itching PSYCH: Negative for sleep disturbance, mood disorder and recent psychosocial stressors HEMATOLOGY/LYMPHOLOGY: Negative for prolonged bleeding, bruising easily or swollen nodes ENDOCRINE: Negative for cold or heat intolerance, polyuria, polydipsia and goiter NEURO: No history of headaches, syncope, paralysis, seizures or tremors EXAM: BP 124/80 Pulse 80 Resp 14 Wt 69.4 kg (153 lb) BMI 25.27 kg/m General Appearance: Well appearing, alert, in no acute distress, well-hydrated, well nourished.. Skin: Skin color, texture, turgor normal, no suspicious rashes or lesions. Neck: Supple, no adenopathy; thyroid symmetric, normal size, no bruits. Lungs: Lungs clear to auscultation. No wheezing, rhonchi, rales.. Heart: RRR without murmur, gallop, or rubs. No ectopy. Abdomen: Normal abdominal exam, Abdomen soft, non-tender. Bowel sounds normal. No masses, organomegaly. Extremities: No deformities, edema, skin discoloration, clubbing or cyanosis. Good capillary refill. . Peripheral Pulses: Normal. Neurologic: Gait normal. Reflexes normal and symmetric. Sensation grossly intact.. Health Maintenance List HEPATITIS C SCREENING Never done SERUM CREATININE due on 05/17/2016 HEMOGLOBIN/HEMATOCRIT due on 10/26/2019 DIABETES SCREEN due on 01/17/2021 ANNUAL PCP TEAM CHRONIC DISEASE VISIT due on 10/15/2021 DEPRESSION ASSESSMENT Never done ADVANCE DIRECTIVE DISCUSSION due on 06/03/2023 MAMMOGRAM due on 01/13/2023 LIPID SCREEN due on 01/17/2023 BP CONTROLLED (<130/80) due on 08/11/2023 DTAP,TDAP,TD(3 - Td or Tdap) due on 01/01/2024 COLORECTAL CANCER SCREENING due on 01/27/2026 BONE DENSITY Completed INFLUENZA Completed COVID-19 VACCINE Completed PNEUMOCOCCAL: 65+ Completed SHINGRIX VACCINE Discontinued ASSESSMENT/PLAN: 1. Medicare annual wellness visit, initial - ICD9: V70.0, ICD10: Z00.00 (primary diagnosis) - Counseled on healthy diet and regular exercise - Calcium intake with supplements or by diet of 1000 mg/day for under 50, 8937-8684 mg/day for 50+ - Discussed need and benefit for weight loss. BMI 25.27 kg/(m^2) - Depression screening tool completed and reviewed with patient. Based on score and interview, patient is not at risk for depression and recommended no further intervention at this time. - Follow up for annual exam in one year - ECG COMPLETE 2. Essential hypertension - ICD9: 401.9, ICD10: I10 - good control - Continue current medication(s) - Recommended regular aerobic exercise. - Recommend home blood pressure monitoring, to bring results in on next visit - Goal of BP <130/80 3. Mixed hyperlipidemia - ICD9: 272.2, ICD10: E78.2 - to be determined upon return of lab results - Encouraged following a low fat, low cholesterol diet. - Discussed the benefits of regular aerobic exercise and weight loss. - Encouraged following a low carbohydrate, healthy oil intake diet. 4. Anemia of chronic disease - ICD9: 285.29, ICD10: D63.8 -STable 5. Stage 3a chronic kidney disease (HCC) - ICD9: 585.3, ICD10: N18.31 - eGFR: Stable - Recommend maintaining blood pressure under 130/80 - Follow up with nephrology 6. Celiac disease - ICD9: 579.0, ICD10: K90.0 7. Well adult exam - ICD9: V70.0, ICD10: Z00.00 - Counseled on healthy diet and regular exercise - Calcium intake with supplements or by diet of 1000 mg/day for under 50, 5531-7091 mg/day for 50+ - Discussed need and benefit for weight loss. BMI 25.27 kg/(m^2) - Depression screening tool completed and reviewed with patient. Based on score and interview, patient is not at risk for depression and recommended no further intervention at this time. - Follow up for annual exam in one year Alicia Hamlin APRN.CNP documented in this encounter [facility] 07-13-2022 Miscellaneous Notes Patient is scheduled. Kimberly Fields MA Left message for patient to contact office. Kimberly Fields MA I missed the office appt in October 2020. Ok for her to be seen but the medicare wellness needs to be [address] Briones, So this patient was in seen by you in 08/2020 for an acute issue. I still think she would be considered your patient. It looks like someone removed you as PCP. I was under the understanding that as long as the patient was seen by a family practice provider they were still ok? Please clarify. As to schedule this patient for wellness exam. Kimberly Fields MA documented in this encounter [facility] 07-10-2022 Note HNO ID: [id number] Author: Curtis Head MA Service: ? Author Type: Forest Worker Type: Progress Notes Filed: 07/11/2022 9:48 AM Note Text: POPULATION HEALTH NAVIGATION OUTREACH Action/FYI Spoke to Aleida rodriguezs to schedule medicare wellness after 4:30. ANNUAL MEDICARE WELLNESS EXAM BP CONTROLLED (<130/80) Never done HEMOGLOBIN/HEMATOCRIT due on 10/26/2019 ANNUAL PCP TEAM CHRONIC DISEASE VISIT due on 10/15/2021 Patient Identified by Name and : YES, via phone Outreach Outcome/Action Spoke to patient / parent / legal guardian: Patient scheduled Did you use a PCP flex slot to schedule this appointment? N/A Reason for Outreach Care Gap or Scheduling/Wellness visits Payer: Payor: MEDICARE / Plan: MEDICARE A AND B / Product Type: Medicare / Care Gap Reviewed:: Annual Wellness visit Controlling Blood Pressure Reminder: Reminder note to check Health Maintenance for items below Health Maintenance items due: HEPATITIS C SCREENING Never done BP CONTROLLED (<130/80) Never done SHINGRIX VACCINE(1 of 2) Never done SERUM CREATININE due on 05/17/2016 BONE DENSITY Never done PNEUMOCOCCAL: 65+(2 - PPSV23 if available, else PCV20) due on 07/08/2019 HEMOGLOBIN/HEMATOCRIT due on 10/26/2019 DIABETES SCREEN due on 01/17/2021 ANNUAL PCP TEAM CHRONIC DISEASE VISIT due on 10/15/2021 COVID-19 VACCINE(5 - Booster for Pfizer series) due on 02/13/2022 ADVANCE DIRECTIVE DISCUSSION Never done DEPRESSION ASSESSMENT Never done Navigation Signature: Curtis Head MA July 10, 2022 2:04 PM [facility] 07-10-2022 History of Present illness Narrative POPULATION HEALTH NAVIGATION OUTREACH Action/FYI Spoke to Aleida pimentel to schedule medicare wellness after 4:30. ANNUAL MEDICARE WELLNESS EXAM BP CONTROLLED (<130/80) Never done HEMOGLOBIN/HEMATOCRIT due on 10/26/2019 ANNUAL PCP TEAM CHRONIC DISEASE VISIT due on 10/15/2021 Patient Identified by Name and : YES, via phone Outreach Outcome/Action Spoke to patient / parent / legal guardian: Patient scheduled Did you use a PCP flex slot to schedule this appointment? N/A Reason for Outreach Care Gap or Scheduling/Wellness visits Payer: Payor: MEDICARE / Plan: MEDICARE A AND B / Product Type: Medicare / Care Gap Reviewed:: Annual Wellness visit Controlling Blood Pressure Reminder: Reminder note to check Health Maintenance for items below Health Maintenance items due: HEPATITIS C SCREENING Never done BP CONTROLLED (<130/80) Never done SHINGRIX VACCINE(1 of 2) Never done SERUM CREATININE due on 05/17/2016 BONE DENSITY Never done PNEUMOCOCCAL: 65+(2 - PPSV23 if available, else PCV20) due on 07/08/2019 HEMOGLOBIN/HEMATOCRIT due on 10/26/2019 DIABETES SCREEN due on 01/17/2021 ANNUAL PCP TEAM CHRONIC DISEASE VISIT due on 10/15/2021 COVID-19 VACCINE(5 - Booster for Pfizer series) due on 02/13/2022 ADVANCE DIRECTIVE DISCUSSION Never done DEPRESSION ASSESSMENT Never done Navigation Signature: Curtis Head MA July 10, 2022 2:04 PM documented in this encounter [facility] 07-10-2022 Note Patient Outreach (KEYANNA TNAV) RICHELLE CARDOZO ([id number]) 1955 F Date Time Provider Department 07/10/22 CURTIS HEAD During your visit today, we recorded the following information about you: Curtis Head MA 07/11/2022 9:48 AM Signed POPULATION HEALTH NAVIGATION OUTREACH Action/FY Spoke to Aleida pimentel to schedule medicare wellness after 4:30. ANNUAL MEDICARE WELLNESS EXAM BP CONTROLLED (<130/80) Never done HEMOGLOBIN/HEMATOCRIT due on 10/26/2019 ANNUAL PCP TEAM CHRONIC DISEASE VISIT due on 10/15/2021 Patient Identified by Name and : YES, via phone Outreach Outcome/Action Spoke to patient / parent / legal guardian: Patient scheduled Did you use a PCP flex slot to schedule this appointment? N/A Reason for Outreach Care Gap or Scheduling/Wellness visits Payer: Payor: MEDICARE / Plan: MEDICARE A AND B / Product Type: Medicare / Care Gap Reviewed:: Annual Wellness visit Controlling Blood Pressure Reminder: Reminder note to check Health Maintenance for items below Health Maintenance items due: HEPATITIS C SCREENING Never done BP CONTROLLED (<130/80) Never done SHINGRIX VACCINE(1 of 2) Never done SERUM CREATININE due on 05/17/2016 BONE DENSITY Never done PNEUMOCOCCAL: 65+(2 - PPSV23 if available, else PCV20) due on 07/08/2019 HEMOGLOBIN/HEMATOCRIT due on 10/26/2019 DIABETES SCREEN due on 01/17/2021 ANNUAL PCP TEAM CHRONIC DISEASE VISIT due on 10/15/2021 COVID-19 VACCINE(5 - Booster for Pfizer series) due on 02/13/2022 ADVANCE DIRECTIVE DISCUSSION Never done DEPRESSION ASSESSMENT Never done Navigation Signature: Curtis Head MA July 10, 2022 2:04 PM Allergies As of Date: 07/10/2022 Noted Allergy Reaction AMOXICILLIN 07/06/2015 2 - Rash HCTZ (AMILORIDE-HYDROCHLOROTHIAZI*03/05 5 - Intolerance Comments: REDNESS AND ITCHING SULFA (SULFONAMIDE ANTIBIOTICS) 06/12/2008 2 - Rash AUGMENTIN (AMOXICILLIN-POT CLAVUL*04/11/2005 8 - GI Upset CEPHALEXIN 11/13/2005 5 - Intolerance Comments: Sore mouth and tongue DOXYCYCLINE 04/21/2005 14 - Other: See Comments Comments: Headache DUST MITES 11/28/2005 16 - Unknown ERYTHRAMYCIN [Other] 04/11/2005 8 - GI Upset GRASS POLLEN 11/28/2005 16 - Unknown LISINOPRIL 04/21/2011 3 - Cough TREES 11/28/2005 16 - Unknown Date Reviewed: 04/16/2022 Reviewed by: Swathi Jeff MA - Fully Assessed Reason for Visit: Population Health Navigation Outreach [3910] Cmt: RAJ MITCHELL PCSA Prescriptions as of 07/12/2022 - albuterol HFA (VENTOLIN HFA) 90 mcg/actuation inhaler Inhale 2 Puffs as instructed every 4 hours as needed. - promethazine (PHENERGAN) 25 mg tablet Take 1 tablet by mouth every 6 hours as needed for nausea/vomiting. - L.acidophil/L.plantar/Bifido 7 (UP4 PROBIOTICS ADULT ORAL) Take by mouth. - hydrOXYchloroQUINE (PLAQUENIL) 200 mg tablet One tab odd days and two tabs even days, per Rheum, Dr. Faria - alendronate (FOSAMAX) 35 mg tablet Take 35 mg by mouth one time a week. In AM with cup of water on empty stomach. Nothing else by mouth and stay upright for 30 min. - Cholecalciferol, Vitamin D3, 50 mcg (2,000 unit) cap Take 1 tablet by mouth once daily. - sodium bicarbonate 650 mg tablet Take 1 tablet by mouth once daily. - fluticasone 50 mcg/actuation nasal spray Use 2 Sprays in each nostril once daily. Rinse mouth after use. - omeprazole 20 mg ORAL capsule Take 1 capsule by mouth once daily. - montelukast sodium(SINGULAIR 10 MG TAB) take one tablet at bedtime Problem List As Of Date 07/10/2022 Noted Resolved Allergic rhinitis [J30.9] 04/21/2005 POLYP COLON [D12.6] 07/07/2005 07/27/2011 DIVERTICULOSIS COLON - NO HEMORRHAGE [K57.30] 08/04/2005 06/16/2016 Asymptomatic varicose veins [I83.90] 10/20/2005 06/16/2016 Predominant disturbance of emotions [R45.89] 05/01/2006 09/11/2016 Sicca syndrome (HCC) [M35.00] 05/01/2006 12/02/2015 GRANULOMA ANNULARE///ERYTHEMATOUS COND NEC [L53*09/11/2008 12/02/2015 XEROSIS///SEBACEOUS GLAND DIS NEC [L73.8] 09/11/2008 11/07/2009 ACTINIC DAMAGE///CHR SOLAR SKIN DAMAGE NOS [L57*10/08/2008 12/02/2015 Personal history of colonic polyps [Z86.010] 03/15/2009 06/16/2016 DVT (deep venous thrombosis) (HCC) [I82.409] 06/17/2009 06/16/2016 Solar lentigo [L81.4] 11/07/2009 12/02/2015 Seborrheic Keratosis [L82.1] 11/07/2009 12/02/2015 Xerosis cutis [L85.3] 11/07/2009 12/02/2015 Sjogren's Disease [M35.00] Celiac disease [K90.0] Acute gastritis without mention of hemorrhage [*04/12/2010 06/16/2016 Duodenitis without mention of hemorrhage [K29.8*04/12/2010 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 [facility] 02-13-2022 Miscellaneous Notes Pt notified of same. Aydee Canela LPN Prescription sent. Patient started having Covid Symptoms last 02/09/2022. Patient tested positive for Covid on Home test. Patient states that most of her symptoms are gone. Patient states that the only symptom lingering is nausea. Patient asking if a prescription for nausea can be sent to [facility]? Please review and advise, Shea Rain RN documented in this encounter [facility] 01-13-2022 Miscellaneous Notes January 13, 2022 PID: [id number] Richelle Cardozo [address] [place] [address] Dear Ms. Cardozo, Your recent breast imaging exam on 01/13/2022 showed a possible finding that requires additional imaging studies for a complete evaluation. Most such findings are probably benign (not cancer). If you have a healthcare provider who ordered/prescribed your screening mammogram: Please call [phone] or [phone]: [phone] to schedule an appointment for your additional imaging (if you have not already done so). If you DO NOT have a healthcare provider (ie you did not have an order/prescription for your screening mammogram): Please call to schedule an appointment for your additional imaging (if you have not already done so). You must have an order/prescription from your physician when calling to schedule your appointment. If your order/prescription is not electronic, you must bring the hard copy with you on the day of your exam to avoid delays. Your imaging studies and reports are kept on file at [facility] as part of your permanent medical record, and are available for your continuing care. Thank you for allowing us to help in meeting your health care needs. Sincerely, Dr. Wagner Interpreting Radiologist [facility] (Additional imaging) documented in this encounter [facility] 01-13-2022 History of Present illness Narrative Radiology Service Progress Note PATIENT NAME: Richelle Cardozo DATE OF SERVICE: January 13, 2022 TIME: 7:30 AM PATIENT IDENTITY VERIFICATION COMPLETED USING TWO (2) IDENTIFIERS: Name and Date of confirmed by patient verbally. FALL SCREENING: Has the patient had 2 falls in the last year or 1 fall with injury or currently using an Ambulatory Assistive Device (Walker, Cane, Wheelchair, Crutches, etc.)? No PATIENT GENDER DATA: Female. status: : No status: NO. PATIENT RELEVANT IMPLANT DATA REVIEWED: Not Applicable RADIOLOGY DEPARTMENT: Mammography PERIPHERAL IV DATA: Not applicable SIGNED BY: RT Lucien(R) January 13, 2022 7:30 AM documented in this encounter [facility] 01-13-2022 History of Present illness Narrative Aleida is a 66 year old who presents for an annual gynecologic exam without complaints. Postmenopausal: Yes HRT use: No. Last Pap: 2016 normal HPV: 2017 negative History of abnormal pap: No Last mammogram: 2021 pending History of abnormal mammogram: No Sexually active: No OB History T2 L2 SAB0 IAB0 Ectopic1 Multiple0 Live Births0 Tube Bender Hand History LMP: Postmenopausal Age at Menarche: Age at First : Age at Menopause: Tube Bender Hand History Comments: Sexual Activity: Not Currently; No partner data on record; Postmenopausal Contraception: No contraception data on record 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 Celiac disease CKD (chronic kidney disease) stage 3, GFR 30-59 ml/min ([facility]) 2013 Diverticulosis of colon 08/04/2005 Duodenitis without mention of hemorrhage 04/12/2010 Epidermal inclusion cyst 09/03/2017 Removed right knee 08/2017 Essential hypertension 07/30/2017 Family history of malignant neoplasm of gastrointestinal tract 01/07/2015 GERD (gastroesophageal reflux disease) 11/10/2014 GRANULOMA ANNULARE///ERYTHEMATOUS COND NEC 09/11/2008 History of DVT (deep vein thrombosis) 06/17/2009 First and only one was in lower extremity around 2006 Ichthyosis congenita Mixed hyperlipidemia 07/30/2017 Personal history of colonic polyps 03/15/2009 polyps / distal sigmoid Phlebitis and thrombophlebitis of other deep vessels of lower extremities 2009 DVT - Popliteal/Tibia 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 Hernandez, repeat 3 yrs COLONOSCOPY FLX DX W/COLLJ SPEC WHEN PFRMD 05/12/2004 Colonoscopy COLONOSCOPY FLX DX W/COLLJ SPEC WHEN PFRMD 08/04/2005 Colonoscopy, no further polyps - Repeat in 3-5 years COLONOSCOPY FLX DX W/COLLJ SPEC WHEN PFRMD 04/12/2010 Colonoscopy, repeat 5 years COLONOSCOPY FLX DX W/COLLJ SPEC WHEN PFRMD 01/07/2015 Colonoscopy COLONOSCOPY FLX DX W/COLLJ SPEC WHEN PFRMD 01/27/2021 COLONOSCOPY, SCREENING, HIGH RISK 03/01/2001 X-2 ENDOMETRIAL BX W/WO ENDOCERVIX BX W/O DILAT SPX ESOPHAGOGASTRODUODENOSCOPY TRANSORAL DIAGNOSTIC 04/12/2010 EGD LIG/TRNSXJ FLP TUBE ABDL/VAG APPR UNI/BI 1989 Tubal ligation PAST SURGICAL HISTORY OF 04/2013 Tubes placed in ears bilaterally PAST SURGICAL HISTORY OF 09/2014 Kidney bx SKIN BIOPSY HX STRESS TEST 03/2007 NL TONSILLECTOMY HX TX ECTOPIC W/O SALPING&/OOPHORECTOMY Ectopic FAMILY HISTORY Problem Relation Age of Onset Colon Cancer Mother 70 Cancer Mother Breast, colon, and skin Stroke Mother Thyroid Mother Heart Mother Aortic valve replacement other (Congestive heart failure) Father Colon Polyps Sister Hypertension Sister Colon Cancer Sister 62 Prostate Cancer Brother other (Suicide, hx cluster headaches) Brother Colon Cancer Maternal Grandmother Arthritis Maternal Grandfather Rheumatoid Diabetes Paternal Aunt IDDM SOCIAL HISTORY Social History Tobacco Use Smoking status: Never Smokeless tobacco: Never Vaping Use Vaping Use: Never used Substance Use Topics Alcohol use: No Drug use: No REVIEW OF SYSTEMS Abdomen: No abdominal pain, nausea, vomiting, diarrhea, or constipation. No bloating, early satiety, indigestion, or increased flatulence. Bladder: No dysuria, gross hematuria, urinary frequency, urinary urgency, or incontinence Breast: No breast lumps, nipple d/c, overlying skin changes, redness or skin retraction Allergies and current medication updated:Yes EXAM: Ht 5' 5.25 (1.66m) Wt 153 lb 9.6 oz (69.7kg) BMI 25.38 kg/(m^2). GENERAL: pleasant, female in no apparent distress HEENT: Normocephalic, atraumatic, mucus membranes moist, and no lesions NECK: Supple, full range of motion, no adenopathy, and thyroid normal DERMATOLOGY: Normal, without lesions, non-icteric, and non-hirsute BREAST: soft, non-tender, symmetric, no dominant mass, normal nipple-areolar complex, no lymphadenopathy, and no nipple discharge CHEST: Normal inspiratory effort ABDOMEN: soft, non-tender, and no masses PELVIC: external genitalia normal, normal Bartholin's glands, urethra, [place]'s glands, no vulvar lesions, no cervical lesions, physiologic discharge present, normal appearing perineal body and perianal region BIMANUAL: uterus normal size, shape and consistency, no adnexal masses, and non-tender RECTOVAGINAL: deferred. NEURO: alert and oriented x3,exam grossly non-focal EXTREMITIES: normal ASSESSMENT/PLAN: 1) Health maintenance: Pap/HPV screening no longer needed Mammogram up to date Nutrition, exercise and routine health maintenance exams reviewed. Calcium/Vitamin D supplementation information provided. Colon cancer screening: up to date with screening BMD: up to date- done in 2020 by [employer] 2) Follow up one year or sooner as needed Mindi Mckay APRN.CNP documented in this encounter [facility] documented as of this encounter (statuses as of 01/13/2022) [facility] History of Past illness Narrative* Problem Noted Date Resolved Date Polyp of colon 01/27/2021 01/27/2021 Encounter for gynecological examination without abnormal finding 10/21/2015 [facility]02[facility] Family history of colon cancer 01/07/2015 0 01/27/2021 GERD (gastroesophageal reflux disease) 5 01/13/2022 Acute gastritis without mention of hemorrhage 06/16/2016 Solar lentigo 11/07/2009 12/02/2015 Seborrheic Keratosis 11/07/2009 12/02/2015 Xerosis cutis 11/07/2009 12/02/2015 DVT (deep venous thrombosis) 06/17/2009 Overview: First and only one was in lower extremity around 2006 Personal history of colonic polyps 03/15/2009 06/16/2016 ACTINIC DAMAGE///CHR SOLAR SKIN DAMAGE NOS 10/0812/02/2015 GRANULOMA ANNULARE///ERYTHEMATOUS COND NEC 09/1112/02/2015 XEROSIS///SEBACEOUS GLAND DIS NEC 09/11/2008 11/07/2009 Predominant disturbance of emotions 05/01/2006 09/11/2016 Sicca syndrome 05/01/2006 12/02/2015 Asymptomatic varicose veins 10/20/200506/04 DIVERTICULOSIS COLON - NO HEMORRHAGE 08/04/2005 06/16/2016 POLYP COLON 07/07/2005 07/27/2011 documented as of this encounter (statuses as of 01/13/2022) [facility] History of Past illness Narrative* Problem Noted Date Resolved Date Polyp of colon 01/27/2021 01/27/2021 Encounter for gynecological examination without abnormal finding 10/21/2015 12/02/2015 Overview: [facility] Family history of colon cancer 01/07/2015 0 01/27/2021 GERD (gastroesophageal reflux disease) 5 01/13/2022 Acute gastritis without mention of hemorrhage 06/16/2016 Solar lentigo 11/07/2009 12/02/2015 Seborrheic Keratosis 11/07/2009 12/02/2015 Xerosis cutis 11/07/2009 12/02/2015 DVT (deep venous thrombosis) 06/17/2009 Overview: First and only one was in lower extremity around 2006 Personal history of colonic polyps 03/15/2009 06/16/2016 ACTINIC DAMAGE///CHR SOLAR SKIN DAMAGE NOS 10/0812/02/2015 GRANULOMA ANNULARE///ERYTHEMATOUS COND NEC 09/1112/02/2015 XEROSIS///SEBACEOUS GLAND DIS NEC 09/11/2008 11/07/2009 Predominant disturbance of emotions 05/01/2006 09/11/2016 Sicca syndrome 05/01/2006 12/02/2015 Asymptomatic varicose veins 10/20/200506/04 DIVERTICULOSIS COLON - NO HEMORRHAGE 08/04/2005 06/16/2016 POLYP COLON 07/07/2005 07/27/2011 documented as of this encounter (statuses as of 01/14/2022) [facility] History of Past illness Narrative* Problem Noted Date Resolved Date Polyp of colon 01/27/2021 01/27/2021 Encounter for gynecological examination without abnormal finding 10/21/2015 12[facility]02/2015 [facility] Family history of colon cancer 01/07/2015 0 01/27/2021 GERD (gastroesophageal reflux disease) 5 01/13/2022 Acute gastritis without mention of hemorrhage 06/16/2016 Solar lentigo 11/07/2009 12/02/2015 Seborrheic Keratosis 11/07/2009 12/02/2015 Xerosis cutis 11/07/2009 12/02/2015 DVT (deep venous thrombosis) 06/17/2009 Overview: First and only one was in lower extremity around 2006 Personal history of colonic polyps 03/15/2009 06/16/2016 ACTINIC DAMAGE///CHR SOLAR SKIN DAMAGE NOS 10/0812/02/2015 GRANULOMA ANNULARE///ERYTHEMATOUS COND NEC 09/1112/02/2015 XEROSIS///SEBACEOUS GLAND DIS NEC 09/11/2008 11/07/2009 Predominant disturbance of emotions 05/01/2006 09/11/2016 Sicca syndrome 05/01/2006 12/02/2015 Asymptomatic varicose veins 10/20/200506/04 DIVERTICULOSIS COLON - NO HEMORRHAGE 08/04/2005 06/16/2016 POLYP COLON 07/07/2005 07/27/2011 documented as of this encounter (statuses as of 01/17/2022) [facility]08-26-2021 History of Past illness Narrative* Problem Noted Date Resolved Date Polyp of colon 01/27/2021 01/27/2021 Encounter for gynecological examination without abnormal finding 10/21/2015 12/02/2015 [facility] Family history of colon cancer 01/07/2015 0 01/27/2021 GERD (gastroesophageal reflux disease) 5 01/13/2022 Acute gastritis without mention of hemorrhage 06/16/2016 Solar lentigo 11/07/2009 12/02/2015 Seborrheic Keratosis 11/07/2009 12/02/2015 Xerosis cutis 11/07/2009 12/02/2015 DVT (deep venous thrombosis) 06/17/2009 Overview: First and only one was in lower extremity around 2006 Personal history of colonic polyps 03/15/2009 06/16/2016 ACTINIC DAMAGE///CHR SOLAR SKIN DAMAGE NOS 10/0812/02/2015 GRANULOMA ANNULARE///ERYTHEMATOUS COND NEC 09/1112/02/2015 XEROSIS///SEBACEOUS GLAND DIS NEC 09/11/2008 11/07/2009 Predominant disturbance of emotions 05/01/2006 09/11/2016 Sicca syndrome 05/01/2006 12/02/2015 Asymptomatic varicose veins 10/20/200506/04 DIVERTICULOSIS COLON - NO HEMORRHAGE 08/04/2005 06/16/2016 POLYP COLON 07/07/2005 07/27/2011 documented as of this encounter (statuses as of 02/13/2022) [facility]08-26-2021 History of Past illness Narrative* Problem Noted Date Resolved Date Polyp of colon 01/27/2021 01/27/2021 Encounter for gynecological examination without abnormal finding 10/21/2015 12/02/2015 [facility] Family history of colon cancer 01/07/2015 0 01/27/2021 GERD (gastroesophageal reflux disease) 5 01/13/2022 Acute gastritis without mention of hemorrhage 06/16/2016 Solar lentigo 11/07/2009 12/02/2015 Seborrheic Keratosis 11/07/2009 12/02/2015 Xerosis cutis 11/07/2009 12/02/2015 DVT (deep venous thrombosis) 06/17/2009 Overview: First and only one was in lower extremity around 2006 Personal history of colonic polyps 03/15/2009 06/16/2016 ACTINIC DAMAGE///CHR SOLAR SKIN DAMAGE NOS 10/0812/02/2015 GRANULOMA ANNULARE///ERYTHEMATOUS COND NEC 09/1112/02/2015 XEROSIS///SEBACEOUS GLAND DIS NEC 09/11/2008 11/07/2009 Predominant disturbance of emotions 05/01/2006 09/11/2016 Sicca syndrome 05/01/2006 12/02/2015 Asymptomatic varicose veins 10/20/200506/04 DIVERTICULOSIS COLON - NO HEMORRHAGE 08/04/2005 06/16/2016 POLYP COLON 07/07/2005 07/27/2011 documented as of this encounter (statuses as of 04/05/2022) [facility]08-26-2021 History of Past illness Narrative* Problem Noted Date Resolved Date Polyp of colon 01/27/2021 01/27/2021 Encounter for gynecological examination without abnormal finding 10/21/2015 12/02/2015 [facility] Family history of colon cancer 01/07/2015 0 01/27/2021 GERD (gastroesophageal reflux disease) 5 01/13/2022 Acute gastritis without mention of hemorrhage 06/16/2016 Solar lentigo 11/07/2009 12/02/2015 Seborrheic Keratosis 11/07/2009 12/02/2015 Xerosis cutis 11/07/2009 12/02/2015 DVT (deep venous thrombosis) 06/17/2009 Overview: First and only one was in lower extremity around 2006 Personal history of colonic polyps 03/15/2009 06/16/2016 ACTINIC DAMAGE///CHR SOLAR SKIN DAMAGE NOS 10/0812/02/2015 GRANULOMA ANNULARE///ERYTHEMATOUS COND NEC 09/1112/02/2015 XEROSIS///SEBACEOUS GLAND DIS NEC 09/11/2008 11/07/2009 Predominant disturbance of emotions 05/01/2006 09/11/2016 Sicca syndrome 05/01/2006 12/02/2015 Asymptomatic varicose veins 10/20/200506/04 DIVERTICULOSIS COLON - NO HEMORRHAGE 08/04/2005 06/16/2016 POLYP COLON 07/07/2005 07/27/2011 documented as of this encounter (statuses as of 07/11/2022) [facility]08-[facility]21 History of Past illness Narrative* Problem Noted Date Resolved Date Polyp of colon 01/27/2021 01/27/2021 Encounter for gynecological examination without abnormal finding 10/21/2015 12/02/2015 [facility] Family history of colon cancer 01/07/2015 0 01/27/2021 GERD (gastroesophageal reflux disease) 5 01/13/2022 Acute gastritis without mention of hemorrhage 06/16/2016 Solar lentigo 11/07/2009 12/02/2015 Seborrheic Keratosis 11/07/2009 12/02/2015 Xerosis cutis 11/07/2009 12/02/2015 DVT (deep venous thrombosis) 06/17/2009 Overview: First and only one was in lower extremity around 2006 Personal history of colonic polyps 03/15/2009 06/16/2016 ACTINIC DAMAGE///CHR SOLAR SKIN DAMAGE NOS 10/0812/02/2015 GRANULOMA ANNULARE///ERYTHEMATOUS COND NEC 09/1112/02/2015 XEROSIS///SEBACEOUS GLAND DIS NEC 09/11/2008 11/07/2009 Predominant disturbance of emotions 05/01/2006 09/11/2016 Sicca syndrome 05/01/2006 12/02/2015 Asymptomatic varicose veins 10/20/200506/04 DIVERTICULOSIS COLON - NO HEMORRHAGE 08/04/2005 06/16/2016 POLYP COLON 07/07/2005 07/27/2011 documented as of this encounter (statuses as of 07/13/2022) [facility]08-26-[facility]21 History of Past illness Narrative* Problem Noted Date Resolved Date Polyp of colon 01/27/2021 01/27/2021 Encounter for gynecological examination without abnormal finding 10/21/2015 12/02/2015 [facility] Family history of colon cancer 01/07/2015 0 01/27/2021 GERD (gastroesophageal reflux disease) 5 01/13/2022 Acute gastritis without mention of hemorrhage 06/16/2016 Solar lentigo 11/07/2009 12/02/2015 Seborrheic Keratosis 11/07/2009 12/02/2015 Xerosis cutis 11/07/2009 12/02/2015 DVT (deep venous thrombosis) 06/17/2009 Overview: First and only one was in lower extremity around 2006 Personal history of colonic polyps 03/15/2009 06/16/2016 ACTINIC DAMAGE///CHR SOLAR SKIN DAMAGE NOS 10/0812/02/2015 GRANULOMA ANNULARE///ERYTHEMATOUS COND NEC 09/1112/02/2015 XEROSIS///SEBACEOUS GLAND DIS NEC 09/11/2008 11/07/2009 Predominant disturbance of emotions 05/01/2006 09/11/2016 Sicca syndrome 05/01/2006 12/02/2015 Asymptomatic varicose veins 10/20/200506/04 DIVERTICULOSIS COLON - NO HEMORRHAGE 08/04/2005 06/16/2016 POLYP COLON 07/07/2005 07/27/2011 documented as of this encounter (statuses as of 08/11/2022) [facility]08-26-[facility]21 History of Past illness Narrative* Problem Noted Date Resolved Date Polyp of colon 01/27/2021 01/27/2021 Encounter for gynecological examination without abnormal finding 10/21/2015 12/02/2015 [facility] Family history of colon cancer 01/07/2015 0 01/27/2021 GERD (gastroesophageal reflux disease) 5 01/13/2022 Acute gastritis without mention of hemorrhage 06/16/2016 Solar lentigo 11/07/2009 12/02/2015 Seborrheic Keratosis 11/07/2009 12/02/2015 Xerosis cutis 11/07/2009 12/02/2015 DVT (deep venous thrombosis) 06/17/2009 Overview: First and only one was in lower extremity around 2006 Personal history of colonic polyps 03/15/2009 06/16/2016 ACTINIC DAMAGE///CHR SOLAR SKIN DAMAGE NOS 10/0812/02/2015 GRANULOMA ANNULARE///ERYTHEMATOUS COND NEC 09/1112/02/2015 XEROSIS///SEBACEOUS GLAND DIS NEC 09/11/2008 11/07/2009 Predominant disturbance of emotions 05/01/2006 09/11/2016 Sicca syndrome 05/01/2006 12/02/2015 Asymptomatic varicose veins 10/20/200506/04 DIVERTICULOSIS COLON - NO HEMORRHAGE 08/04/2005 06/16/2016 POLYP COLON 07/07/2005 07/27/2011 documented as of this encounter (statuses as of 09/08/2022) [facility]08[facility] History of Past illness Narrative* Problem Noted Date Resolved Date Polyp of colon 01/27/2021 01/27/2021 Encounter for gynecological examination without abnormal finding 10/21/2015 12/02/2015 [facility] Family history of colon cancer 01/07/2015 0 01/27/2021 GERD (gastroesophageal reflux disease) 5 01/13/2022 Acute gastritis without mention of hemorrhage 06/16/2016 Solar lentigo 11/07/2009 12/02/2015 Seborrheic Keratosis 11/07/2009 12/02/2015 Xerosis cutis 11/07/2009 12/02/2015 DVT (deep venous thrombosis) 06/17/2009 Overview: First and only one was in lower extremity around 2006 Personal history of colonic polyps 03/15/2009 06/16/2016 ACTINIC DAMAGE///CHR SOLAR SKIN DAMAGE NOS 10/0812/02/2015 GRANULOMA ANNULARE///ERYTHEMATOUS COND NEC 09/1112/02/2015 XEROSIS///SEBACEOUS GLAND DIS NEC 09/11/2008 11/07/2009 Predominant disturbance of emotions 05/01/2006 09/11/2016 Sicca syndrome 05/01/2006 12/02/2015 Asymptomatic varicose veins 10/20/200506/04 DIVERTICULOSIS COLON - NO HEMORRHAGE 08/04/2005 06/16/2016 POLYP COLON 07/07/2005 07/27/2011 documented as of this encounter (statuses as of 09/11/2022) [facility]08[facility] History of Past illness Narrative* Problem Noted Date Resolved Date Polyp of colon 01/27/2021 01/27/2021 Encounter for gynecological examination without abnormal finding 10/21/2015 12/02/2015 [facility] Family history of colon cancer 01/07/2015 0 01/27/2021 GERD (gastroesophageal reflux disease) 5 01/13/2022 Acute gastritis without mention of hemorrhage 06/16/2016 Solar lentigo 11/07/2009 12/02/2015 Seborrheic Keratosis 11/07/2009 12/02/2015 Xerosis cutis 11/07/2009 12/02/2015 DVT (deep venous thrombosis) 06/17/2009 Overview: First and only one was in lower extremity around 2006 Personal history of colonic polyps 03/15/2009 06/16/2016 ACTINIC DAMAGE///CHR SOLAR SKIN DAMAGE NOS 10/0812/02/2015 GRANULOMA ANNULARE///ERYTHEMATOUS COND NEC 09/1112/02/2015 XEROSIS///SEBACEOUS GLAND DIS NEC 09/11/2008 11/07/2009 Predominant disturbance of emotions 05/01/2006 09/11/2016 Sicca syndrome 05/01/2006 12/02/2015 Asymptomatic varicose veins 10/20/200506/04 DIVERTICULOSIS COLON - NO HEMORRHAGE 08/04/2005 06/16/2016 POLYP COLON 07/07/2005 07/27/2011 documented as of this encounter (statuses as of 09/15/2022) [facility]08-[facility]21 History of Past illness Narrative* Problem Noted Date Resolved Date Polyp of colon 01/27/2021 01/27/2021 Encounter for gynecological examination without abnormal finding 10/21/2015 12/02/2015 [facility] Family history of colon cancer 01/07/2015 0 01/27/2021 GERD (gastroesophageal reflux disease) 5 01/13/2022 Acute gastritis without mention of hemorrhage 06/16/2016 Solar lentigo 11/07/2009 12/02/2015 Seborrheic Keratosis 11/07/2009 12/02/2015 Xerosis cutis 11/07/2009 12/02/2015 DVT (deep venous thrombosis) 06/17/2009 Overview: First and only one was in lower extremity around 2006 Personal history of colonic polyps 03/15/2009 06/16/2016 ACTINIC DAMAGE///CHR SOLAR SKIN DAMAGE NOS 10/0812/02/2015 GRANULOMA ANNULARE///ERYTHEMATOUS COND NEC 09/1112/02/2015 XEROSIS///SEBACEOUS GLAND DIS NEC 09/11/2008 11/07/2009 Predominant disturbance of emotions 05/01/2006 09/11/2016 Sicca syndrome 05/01/2006 12/02/2015 Asymptomatic varicose veins 10/20/200506/04 DIVERTICULOSIS COLON - NO HEMORRHAGE 08/04/2005 06/16/2016 POLYP COLON 07/07/2005 07/27/2011 documented as of this encounter (statuses as of 10/09/2022) [facility]08[facility] History of Past illness Narrative* Problem Noted Date Resolved Date Polyp of colon 01/27/2021 01/27/2021 Encounter for gynecological examination without abnormal finding 10/21/2015 12/02/2015 [facility] Family history of colon cancer 01/07/2015 0 01/27/2021 GERD (gastroesophageal reflux disease) 5 01/13/2022 Acute gastritis without mention of hemorrhage 06/16/2016 Solar lentigo 11/07/2009 12/02/2015 Seborrheic Keratosis 11/07/2009 12/02/2015 Xerosis cutis 11/07/2009 12/02/2015 DVT (deep venous thrombosis) 06/17/2009 Overview: First and only one was in lower extremity around 2006 Personal history of colonic polyps 03/15/2009 06/16/2016 ACTINIC DAMAGE///CHR SOLAR SKIN DAMAGE NOS 10/0812/02/2015 GRANULOMA ANNULARE///ERYTHEMATOUS COND NEC 09/1112/02/2015 XEROSIS///SEBACEOUS GLAND DIS NEC 09/11/2008 11/07/2009 Predominant disturbance of emotions 05/01/2006 09/11/2016 Sicca syndrome 05/01/2006 12/02/2015 Asymptomatic varicose veins 10/20/200506/04 DIVERTICULOSIS COLON - NO HEMORRHAGE 08/04/2005 06/16/2016 POLYP COLON 07/07/2005 07/27/2011 documented as of this encounter (statuses as of 10/09/2022) [facility]08[facility] History of Past illness Narrative* Problem Noted Date Resolved Date Polyp of colon 01/27/2021 01/27/2021 Encounter for gynecological examination without abnormal finding 10/21/2015 12/02/2015 Overview: [facility]. Family history of colon cancer 01/07/2015 0 01/27/2021 GERD (gastroesophageal reflux disease) 5 01/13/2022 Acute gastritis without mention of hemorrhage 06/16/2016 Solar lentigo 11/07/2009 12/02/2015 Seborrheic Keratosis 11/07/2009 12/02/2015 Xerosis cutis 11/07/2009 12/02/2015 DVT (deep venous thrombosis) 06/17/2009 Overview: First and only one was in lower extremity around 2006 Personal history of colonic polyps 03/15/2009 06/16/2016 ACTINIC DAMAGE///CHR SOLAR SKIN DAMAGE NOS 10/0812/02/2015 GRANULOMA ANNULARE///ERYTHEMATOUS COND NEC 09/1112/02/2015 XEROSIS///SEBACEOUS GLAND DIS NEC 09/11/2008 11/07/2009 Predominant disturbance of emotions 05/01/2006 09/11/2016 Sicca syndrome 05/01/2006 12/02/2015 Asymptomatic varicose veins 10/20/200506/04 DIVERTICULOSIS COLON - NO HEMORRHAGE 08/04/2005 06/16/2016 POLYP COLON 07/07/2005 07/27/2011 documented as of this encounter (statuses as of 11/25/2022) [facility]08[facility] History of Past illness Narrative* Problem Noted Date Resolved Date Polyp of colon 01/27/2021 01/27/2021 Encounter for gynecological examination without abnormal finding 10/21/2015 12/02/2015 Overview: [facility]. Family history of colon cancer 01/07/2015 0 01/27/2021 GERD (gastroesophageal reflux disease) 5 01/13/2022 Acute gastritis without mention of hemorrhage 06/16/2016 Solar lentigo 11/07/2009 12/02/2015 Seborrheic Keratosis 11/07/2009 12/02/2015 Xerosis cutis 11/07/2009 12/02/2015 DVT (deep venous thrombosis) 06/17/2009 Overview: First and only one was in lower extremity around 2006 Personal history of colonic polyps 03/15/2009 06/16/2016 ACTINIC DAMAGE///CHR SOLAR SKIN DAMAGE NOS 10/0812/02/2015 GRANULOMA ANNULARE///ERYTHEMATOUS COND NEC 09/1112/02/2015 XEROSIS///SEBACEOUS GLAND DIS NEC 09/11/2008 11/07/2009 Predominant disturbance of emotions 05/01/2006 09/11/2016 Sicca syndrome 05/01/2006 12/02/2015 Asymptomatic varicose veins 10/20/200506/04 DIVERTICULOSIS COLON - NO HEMORRHAGE 08/04/2005 06/16/2016 POLYP COLON 07/07/2005 07/27/2011 documented as of this encounter (statuses as of 11/30/2022) [facility] History of Past illness Narrative* Problem Noted Date Diagnosed Date Resolved Date Polyp of colon 01/27/2021 01/27/2021 Encounter for gynecological examination without abnormal finding 10/21/2015 12/02/2015 [facility] Family history of colon cancer 01/07/2015 01/27/2021 GERD (gastroesophageal reflux disease) 11/10/2014 01/13/2022 Acute gastritis without mention of hemorrhage 04/12/2006/16/2016 Solar lentigo 11/07/2009 12/02/2015 Seborrheic Keratosis 11/07/2009 016 Xerosis cutis 11/07/2009 12/02/2015 DVT (deep venous thrombosis) 06/17/2009 06/16/2016 Overview: First and only one was in lower extremity around 2006 Personal history of colonic polyps 03/15/2009 06/16/2016 ACTINIC DAMAGE///CHR SOLAR SKIN DAMAGE NOS 10/08/2008 12/02/2015 GRANULOMA ANNULARE///ERYTHEMATOUS COND NEC 09/11/2008 12/02/2015 XEROSIS///SEBACEOUS GLAND DIS NEC 09/11/2008 11/07/2009 Predominant disturbance of emotions 05/01/2006 09/11/2016 Sicca syndrome 05/01/2006 12/02/2015 Asymptomatic varicose veins 10/20/2005 06/16/2016 DIVERTICULOSIS COLON - NO HEMORRHAGE 08/04/2005 06/16/2016 POLYP COLON 07/07/2005 07/27/2011 documented as of this encounter (statuses as of 02/13/2023) [facility] of Past illness Narrative* Problem Noted Date Diagnosed Date Resolved Date Polyp of colon 01/27/2021 01/27/2021 Encounter for gynecological examination without abnormal finding 10/21/2015 12/02/2015 [facility] Family history of colon cancer 01/07/2015 01/27/2021 GERD (gastroesophageal reflux disease) 11/10/2014 01/13/2022 Acute gastritis without mention of hemorrhage 04/12/20 10 06/16/2016 Solar lentigo 11/07/2009 12/02/2015 Seborrheic Keratosis 11/07/2009 016 Xerosis cutis 11/07/2009 12/02/2015 DVT (deep venous thrombosis) 06/17/2009 06/16/2016 Overview: First and only one was in lower extremity around 2006 Personal history of colonic polyps 03/15/2009 06/16/2016 ACTINIC DAMAGE///CHR SOLAR SKIN DAMAGE NOS 10/08/2008 12/02/2015 GRANULOMA ANNULARE///ERYTHEMATOUS COND NEC 09/11/2008 12/02/2015 XEROSIS///SEBACEOUS GLAND DIS NEC 09/11/2008 11/07/2009 Predominant disturbance of emotions 05/01/2006 09/11/2016 Sicca syndrome 05/01/2006 12/02/2015 Asymptomatic varicose veins 10/20/2005 06/16/2016 DIVERTICULOSIS COLON - NO HEMORRHAGE 08/04/2005 06/16/2016 POLYP COLON 07/07/2005 07/27/2011 documented as of this encounter (statuses as of 02/13/2023) [facility] of Past illness Narrative* Problem Noted Date Diagnosed Date Resolved Date Polyp of colon 01/27/2021 01/27/2021 Encounter for gynecological examination without abnormal finding 10/21/2015 12/02/2015 Overview: Sees [facility]. Family history of colon cancer 01/07/2015 01/27/2021 GERD (gastroesophageal reflux disease) 11/10/2014 01/13/2022 Acute gastritis without mention of hemorrhage 04/12/20 10 06/16/2016 Solar lentigo 11/07/2009 12/02/2015 Seborrheic Keratosis 11/07/2009 016 Xerosis cutis 11/07/2009 12/02/2015 DVT (deep venous thrombosis) 06/17/2009 06/16/2016 Overview: First and only one was in lower extremity around 2006 Personal history of colonic polyps 03/15/2009 06/16/2016 ACTINIC DAMAGE///CHR SOLAR SKIN DAMAGE NOS 10/08/2008 12/02/2015 GRANULOMA ANNULARE///ERYTHEMATOUS COND NEC 09/11/2008 12/02/2015 XEROSIS///SEBACEOUS GLAND DIS NEC 09/11/2008 11/07/2009 Predominant disturbance of emotions 05/01/2006 09/11/2016 Sicca syndrome 05/01/2006 12/02/2015 Asymptomatic varicose veins 10/20/2005 06/16/2016 DIVERTICULOSIS COLON - NO HEMORRHAGE 08/04/2005 06/16/2016 POLYP COLON 07/07/2005 07/27/2011 documented as of this encounter (statuses as of 02/14/2023) [facility] of Past illness Narrative* Problem Noted Date Diagnosed Date Resolved Date Polyp of colon 01/27/2021 01/27/2021 Encounter for gynecological examination without abnormal finding 10/21/2015 12/02/2015 Overview: [facility]. Family history of colon cancer 01/07/2015 01/27/2021 GERD (gastroesophageal reflux disease) 11/10/2014 01/13/2022 Acute gastritis without mention of hemorrhage 04/12/2006/16/2016 Solar lentigo 11/07/2009 12/02/2015 Seborrheic Keratosis 11/07/2009 016 Xerosis cutis 11/07/2009 12/02/2015 DVT (deep venous thrombosis) 06/17/2009 06/16/2016 Overview: First and only one was in lower extremity around 2006 Personal history of colonic polyps 03/15/2009 06/16/2016 ACTINIC DAMAGE///CHR SOLAR SKIN DAMAGE NOS 10/08/2008 12/02/2015 GRANULOMA ANNULARE///ERYTHEMATOUS COND NEC 09/11/2008 12/02/2015 XEROSIS///SEBACEOUS GLAND DIS NEC 09/11/2008 11/07/2009 Predominant disturbance of emotions 05/01/2006 09/11/2016 Sicca syndrome 05/01/2006 12/02/2015 Asymptomatic varicose veins 10/20/2005 06/16/2016 DIVERTICULOSIS COLON - NO HEMORRHAGE 08/04/2005 06/16/2016 POLYP COLON 07/07/2005 07/27/2011 documented as of this encounter (statuses as of 2023) [facility] of Past illness Narrative* Problem Noted Date Diagnosed Date Resolved Date Polyp of colon 01/27/2021 01/27/2021 Encounter for gynecological examination without abnormal finding 10/21/2015 12/02/2015 Overview: [facility]. Family history of colon cancer 01/07/2015 01/27/2021 GERD (gastroesophageal reflux disease) 11/10/2014 01/13/2022 Acute gastritis without mention of hemorrhage 04/12/2006/16/2016 Solar lentigo 11/07/2009 12/02/2015 Seborrheic Keratosis 11/07/2009 016 Xerosis cutis 11/07/2009 12/02/2015 DVT (deep venous thrombosis) 06/17/2009 06/16/2016 Overview: First and only one was in lower extremity around 2006 Personal history of colonic polyps 03/15/2009 06/16/2016 ACTINIC DAMAGE///CHR SOLAR SKIN DAMAGE NOS 10/08/2008 12/02/2015 GRANULOMA ANNULARE///ERYTHEMATOUS COND NEC 09/11/2008 12/02/2015 XEROSIS///SEBACEOUS GLAND DIS NEC 09/11/2008 11/07/2009 Predominant disturbance of emotions 05/01/2006 09/11/2016 Sicca syndrome 05/01/2006 12/02/2015 Asymptomatic varicose veins 10/20/2005 06/16/2016 DIVERTICULOSIS COLON - NO HEMORRHAGE 08/04/2005 06/16/2016 POLYP COLON 07/07/2005 07/27/2011 documented as of this encounter (statuses as of 02/26/2023) [facility] of Past illness Narrative* Problem Noted Date Diagnosed Date Resolved Date Polyp of colon 01/27/2021 01/27/2021 Encounter for gynecological examination without abnormal finding 10/21/2015 12/02/2015 [facility] Family [facility] of colon cancer 01/07/2015 01/27/2021 GERD (gastroesophageal reflux disease) 11/10/2014 01/13/2022 Acute gastritis without mention of hemorrhage 04/12/20 10 06/16/2016 Solar lentigo 11/07/2009 12/02/2015 Seborrheic Keratosis 11/07/2009 016 Xerosis cutis 11/07/2009 12/02/2015 DVT (deep venous thrombosis) 06/17/2009 06/16/2016 Overview: First and only one was in lower extremity around 2006 Personal history of colonic polyps 03/15/2009 06/16/2016 ACTINIC DAMAGE///CHR SOLAR SKIN DAMAGE NOS 10/08/2008 12/02/2015 GRANULOMA ANNULARE///ERYTHEMATOUS COND NEC 09/11/2008 12/02/2015 XEROSIS///SEBACEOUS GLAND DIS NEC 09/11/2008 11/07/2009 Predominant disturbance of emotions 05/01/2006 09/11/2016 Sicca syndrome 05/01/2006 12/02/2015 Asymptomatic varicose veins 10/20/2005 06/16/2016 DIVERTICULOSIS COLON - NO HEMORRHAGE 08/04/2005 06/16/2016 POLYP COLON 07/07/2005 07/27/2011 documented as of this encounter (statuses as of 04/08/2023) [facility] Past [facility] Narrative* Problem Noted Date Diagnosed Date Resolved Date Polyp of colon 01/27/2021 01/27/2021 Encounter for gynecological examination without abnormal finding 10/21/2015 12/02/2015 [facility] Family history of colon cancer 01/07/2015 01/27/2021 GERD (gastroesophageal reflux disease) 11/10/2014 01/13/2022 Acute gastritis without mention of hemorrhage 04/12/20 10 06/16/2016 Solar lentigo 11/07/2009 12/02/2015 Seborrheic Keratosis 11/07/2009 016 Xerosis cutis 11/07/2009 12/02/2015 DVT (deep venous thrombosis) 06/17/2009 06/16/2016 Overview: First and only one was in lower extremity around 2006 Personal history of colonic polyps 03/15/2009 06/16/2016 ACTINIC DAMAGE///CHR SOLAR SKIN DAMAGE NOS 10/08/2008 12/02/2015 GRANULOMA ANNULARE///ERYTHEMATOUS COND NEC 09/11/2008 12/02/2015 XEROSIS///SEBACEOUS GLAND DIS NEC 09/11/2008 11/07/2009 Predominant disturbance of emotions 05/01/2006 09/11/2016 Sicca syndrome 05/01/2006 12/02/2015 Asymptomatic varicose veins 10/20/2005 06/16/2016 DIVERTICULOSIS COLON - NO HEMORRHAGE 08/04/2005 06/16/2016 POLYP COLON 07/07/2005 07/27/2011 documented as of this encounter (statuses as of 04/08/2023) [facility] Narrative* Problem Noted Date Diagnosed Date Resolved Date Polyp of colon 01/27/2021 01/27/2021 Encounter for gynecological examination without abnormal finding 10/21/2015 12/02/2015 Overview: [facility] [facility]. Family history of colon cancer 01/07/2015 01/27/2021 GERD (gastroesophageal reflux disease) 11/10/2014 01/13/2022 Acute gastritis without mention of hemorrhage 04/12/2006/16/2016 Solar lentigo 11/07/2009 12/02/2015 Seborrheic Keratosis 11/07/2009 016 Xerosis cutis 11/07/2009 12/02/2015 DVT (deep venous thrombosis) 06/17/2009 06/16/2016 Overview: First and only one was in lower extremity around 2006 Personal history of colonic polyps 03/15/2009 06/16/2016 ACTINIC DAMAGE///CHR SOLAR SKIN DAMAGE NOS 10/08/2008 12/02/2015 GRANULOMA ANNULARE///ERYTHEMATOUS COND NEC 09/11/2008 12/02/2015 XEROSIS///SEBACEOUS GLAND DIS NEC 09/11/2008 11/07/2009 Predominant disturbance of emotions 05/01/2006 09/11/2016 Sicca syndrome 05/01/2006 12/02/2015 Asymptomatic varicose veins 10/20/2005 06/16/2016 DIVERTICULOSIS COLON - NO HEMORRHAGE 08/04/2005 06/16/2016 POLYP COLON 07/07/2005 07/27/2011 documented as of this encounter (statuses as of 04/08/2023) [facility] Diagnosis Encounter for gynecological examination (general) (routine) without abnormal findings- Primary Encounter for screening mammogram for breast cancer [facility] Diagnosis Abnormal mammogram- Primary Abnormal mammogram, unspecified [facility] Diagnosis Encounter for screening mammogram for breast cancer [facility] Diagnosis Medicare annual wellness visit, initial- Primary Routine general medical examination at a health care facility Essential hypertension Unspecified essential hypertension Mixed hyperlipidemia Anemia of chronic disease Anemia of other chronic disease Stage 3a chronic kidney disease (HCC) Celiac disease Well adult exam Routine general medical examination at a health care facility [facility] Diagnosis Bacterial pneumonia- Primary Bacterial pneumonia, unspecified [facility] Diagnosis Bacterial pneumonia- Primary Bacterial pneumonia, unspecified [facility] Diagnosis Bacterial pneumonia- Primary Bacterial pneumonia, unspecified [facility] Diagnosis Bacterial pneumonia- Primary Bacterial pneumonia, unspecified [facility] Diagnosis Abnormal mammogram- Primary Abnormal mammogram, unspecified [facility] Diagnosis Acute pansinusitis, recurrence not specified- Primary documented [facility] Diagnosis Encounter for screening mammogram for breast cancer documented [facility] Diagnosis Abnormal mammogram Abnormal mammogram, unspecified documented [facility] Diagnosis Abnormal mammogram Abnormal mammogram, unspecified documented in this encounter [facility] for referral (narrative)* Diagnostic Procedure Only (Routine) - Pending Review Specialty Diagnoses / Procedures Referred By Gal trevino Referred To Contact [facility] Diagnoses Encounter for screening mammogram for breast cancer Procedures SUSHIL SCREENING SCREENING MAMMOGRAPHY BI 2-VIEW BREAST INC CAD Mindi Mckay APRN.TREND INVESTIGATOR [address] [place] [address] [facility] [address] [id number] Referral ID Status Reason Start Date Expiration Date Visits Requested Visits Authorized [id number] Pending Review Auto-Generat ed Referral 01/13/2022 02/12/[address] [facility] for referral (narrative)* Diagnostic Procedure Only (Routine) - Authorized Specialty Diagnoses / Procedures Referred By Gal t Referred To Contact [facility] Diagnoses Abnormal mammogram Procedures US BREAST LTD RT US BREAST UNI REAL TIME WITH IMAGE LIMITED Mindi Mckay APRN.TREND INVESTIGATOR [address] [place] [address] [facility] [address] [place] [address] Referral ID Status Reason Start Date Expiration Date Visits Requested Visits Authorized [id number] Authorized Auto-Generat ed Referral 01/13/2022 02/12/2023 1 1 * Diagnostic Procedure Only (Routine) - Authorized Specialty Diagnoses / Procedures Referred By Gal trevino Referred To Contact [facility] Diagnoses Abnormal mammogram Procedures SUSHIL DIAGNOSTIC RT DIAGNOSTIC MAMMOGRAPHY COMPUTER-AIDED DETCJ UNI Mindi Mckay APRN.TREND INVESTIGATOR [address] [place] [address] [facility] [address] [place] [address] Referral ID Status Reason Start Date Expiration Date Visits Requested Visits Authorized [id number] Authorized Auto-Generat ed Referral 01/13/2022 02/12/[address] [facility] for referral (narrative)* Diagnostic Procedure Only (Routine) - Closed Specialty Diagnoses / Procedures Referred By Contac t Referred To Contact [facility] Diagnoses Encounter for screening mammogram for breast cancer Procedures SUSHIL SCREENING SCREENING MAMMOGRAPHY BI 2-VIEW BREAST INC CAD Mindi Mckay APRN.TREND INVESTIGATOR [address] [place] [address] [facility] [address] [place] [address] Referral ID Status Reason Start Date Expiration Date V isits Requested Visits Authorized [id number] Closed Auto-Generate d Referral 01/04/2021 02/03/[address] [facility] for referral (narrative)* Outpatient Procedure (Routine) - Pending Review Specialty Diagnoses / Procedures Referred By Gal trevino Referred To Contact [facility] Diagnoses Medicare annual wellness visit, initial Procedures ECG COMPLETE ECG ROUTINE ECG W/LEAST 12 LDS W/I&R Alicia Hamlin APRN.TREND INVESTIGATOR [address] [place] [address] [facility] [place] [address] [place] [address] Referral ID Status Reason Start Date Expiration Date Visits Requested Visits Authorized [id number] Pending Review Auto-Generat ed Referral 08/10/2022 08/10/[address] [facility] for referral (narrative)* Diagnostic Procedure Only (Routine) - Pending Review Specialty Diagnoses / Procedures Referred By Gal trevino Referred To Contact [facility] Diagnoses Abnormal mammogram Procedures US BREAST LTD RIGHT US BREAST UNI REAL TIME WITH IMAGE LIMITED Mindi Mckay APRN.TREND INVESTIGATOR [address] [place] [address] [facility] [address] [place] [address] Referral ID Status Reason Start Date Expiration Date Visits Requested Visits Authorized [id number] Pending Review Auto-Generat ed Referral 02/13/2023 03/14/2024 1 1 * Diagnostic Procedure Only (Routine) - Authorized Specialty Diagnoses / Procedures Referred By Contac t Referred To Contact [facility] Diagnoses Abnormal mammogram Procedures SUSHIL DIAGNOSTIC RIGHT DIAGNOSTIC MAMMOGRAPHY COMPUTER-AIDED DETCJ UNI Mindi Mckay APRN.TREND INVESTIGATOR [address] [place] [address] [facility] [address] [place] [address] Referral ID Status Reason Start Date Expiration Date Visits Requested Visits Authorized [id number] Authorized Auto-Generat ed Referral 02/13/2023 03/14/[address] [facility] for referral (narrative)* Diagnostic Procedure Only (Routine) - Closed Specialty Diagnoses / Procedures Referred By Gal t Referred To Contact [facility] Diagnoses Encounter for screening mammogram for breast cancer Procedures SUSHIL SCREENING SCREENING MAMMOGRAPHY BI 2-VIEW BREAST INC CAD Mindi Mckay APRN.TREND INVESTIGATOR [address] [place] [address] [facility] [address] [place] [address] Referral ID Status Reason Start Date Expiration Date V isits Requested Visits Authorized [id number] Closed Auto-Generate d Referral 01/13/2022 02/12/[address] [facility] for referral (narrative)* Diagnostic Procedure Only (Routine) - Closed Specialty Diagnoses / Procedures Referred By Contac t Referred To Contact [facility] Diagnoses Abnormal mammogram Procedures US BREAST LTD RIGHT US BREAST UNI REAL TIME WITH IMAGE LIMITED Mindi Mckay APRN.TREND INVESTIGATOR [address] [place] [address] [facility] [address] [place] [address] Referral ID Status Reason Start Date Expiration Date V isits Requested Visits Authorized [id number] Closed Auto-Generate d Referral 02/13/2023 03/14/[address] [facility] for visit Narrative* Diagnostic Procedure Only (Routine) - Closed Specialty Diagnoses / Procedures Referred By Gal t Referred To Contact [facility] Diagnoses Encounter for screening mammogram for breast cancer Procedures SUSHIL SCREENING SCREENING MAMMOGRAPHY BI 2-VIEW BREAST INC [facility] NelyMindi APRN.TREND INVESTIGATOR [address] [place] [address] [facility] [address] [place] [address] Referral ID Status Reason Start Date Expiration Date V isits Requested Visits Authorized [id number] Closed Auto-Generate d Referral 01/04/2021 02/03/[address] [facility] for visit Narrative* Diagnostic Procedure Only (Routine) - Closed Specialty Diagnoses / Procedures Referred By Gal trevino Referred To Contact [facility] Diagnoses Encounter for screening mammogram for breast cancer Procedures SUSHIL SCREENING SCREENING MAMMOGRAPHY BI 2-VIEW BREAST INC [facility] FairbankMindi APRN.TREND INVESTIGATOR [address] [place] [address] [facility] [address] [place] [address] Referral ID Status Reason Start Date Expiration Date V isits Requested Visits Authorized [id number] Closed Auto-Generate d Referral 01/13/2022 02/12/[address] [facility] for visit Narrative* Diagnostic Procedure Only (Routine) - Closed Specialty Diagnoses / Procedures Referred By Gal trevino Referred To Contact [facility] Diagnoses Abnormal mammogram Procedures SUSHIL DIAGNOSTIC RIGHT DIAGNOSTIC MAMMOGRAPHY COMPUTER-AIDED DETCJ [facility] Mindi Mckay APRN.TREND INVESTIGATOR [address] [place] [address] [facility] [address] [place] [address] Referral ID Status Reason Start Date Expiration Date V isits Requested Visits Authorized [id number] Closed Auto-Generate d Referral 02/13/2023 03/14/2024 [address] [facility] Summary Purpose Family History No Family History Records Found Advance Directives No Advanced Directives Records Found Additional Source Comments Source Comments (unrecognize d section and content) In the event this informatio n is protected by the Federal Confidentiality of Alcohol and Drug Abuse Patient Records regulations: The Federal rules restrict any use of the information to criminally investigate or prosecute any alcohol or drug abuse patient.[facility] the event this information is protected by the Federal Confidentiality of Alcohol and Drug Abuse Patient Records regulations: The Federal rules restrict any use of the information to criminally investigate or prosecute any alcohol or drug abuse patient.[facility] the event this information is protected by the Federal Confidentiality of Alcohol and Drug Abuse Patient Records regulations: The Federal rules restrict any use of the information to criminally investigate or prosecute any alcohol or drug abuse patient.[facility] the event this information is protected by the Federal Confidentiality of Alcohol and Drug Abuse Patient Records regulations: The Federal rules restrict any use of the information to criminally investigate or prosecute any alcohol or drug abuse patient.[facility] the event this information is protected by the Federal Confidentiality of Alcohol and Drug Abuse Patient Records regulations: The Federal rules restrict any use of the information to criminally investigate or prosecute any alcohol or drug abuse patient.[facility] the event this information is protected by the Federal Confidentiality of Alcohol and Drug Abuse Patient Records regulations: The Federal rules restrict any use of the information to criminally investigate or prosecute any alcohol or drug abuse patient.[facility] the event this information is protected by the Federal Confidentiality of Alcohol and Drug Abuse Patient Records regulations: The Federal rules restrict any use of the information to criminally investigate or prosecute any alcohol or drug abuse patient.[facility] the event this information is protected by the Federal Confidentiality of Alcohol and Drug Abuse Patient Records regulations: The Federal rules restrict any use of the information to criminally investigate or prosecute any alcohol or drug abuse patient.[facility] the event this information is protected by the Federal Confidentiality of Alcohol and Drug Abuse Patient Records regulations: The Federal rules restrict any use of the information to criminally investigate or prosecute any alcohol or drug abuse patient.[facility] the event this information is protected by the Federal Confidentiality of Alcohol and Drug Abuse Patient Records regulations: The Federal rules restrict any use of the information to criminally investigate or prosecute any alcohol or drug abuse patient.[facility] the event this information is protected by the Federal Confidentiality of Alcohol and Drug Abuse Patient Records regulations: The Federal rules restrict any use of the information to criminally investigate or prosecute any alcohol or drug abuse patient.[facility] the event this information is protected by the Federal Confidentiality of Alcohol and Drug Abuse Patient Records regulations: The Federal rules restrict any use of the information to criminally investigate or prosecute any alcohol or drug abuse patient.[facility] the event this information is protected by the Federal Confidentiality of Alcohol and Drug Abuse Patient Records regulations: The Federal rules restrict any use of the information to criminally investigate or prosecute any alcohol or drug abuse patient.[facility] the event this information is protected by the Federal Confidentiality of Alcohol and Drug Abuse Patient Records regulations: The Federal rules restrict any use of the information to criminally investigate or prosecute any alcohol or drug abuse patient.[facility] the event this information is protected by the Federal Confidentiality of Alcohol and Drug Abuse Patient Records regulations: The Federal rules restrict any use of the information to criminally investigate or prosecute any alcohol or drug abuse patient.[facility] the event this information is protected by the Federal Confidentiality of Alcohol and Drug Abuse Patient Records regulations: The Federal rules restrict any use of the information to criminally investigate or prosecute any alcohol or drug abuse patient.[facility] the event this information is protected by the Federal Confidentiality of Alcohol and Drug Abuse Patient Records regulations: The Federal rules restrict any use of the information to criminally investigate or prosecute any alcohol or drug abuse patient.[facility] the event this information is protected by the Federal Confidentiality of Alcohol and Drug Abuse Patient Records regulations: The Federal rules restrict any use of the information to criminally investigate or prosecute any alcohol or drug abuse patient.[facility] the event this information is protected by the Federal Confidentiality of Alcohol and Drug Abuse Patient Records regulations: The Federal rules restrict any use of the information to criminally investigate or prosecute any alcohol or drug abuse patient.[facility] the event this information is protected by the Federal Confidentiality of Alcohol and Drug Abuse Patient Records regulations: The Federal rules restrict any use of the information to criminally investigate or prosecute any alcohol or drug abuse patient.[facility] the event this information is protected by the Federal Confidentiality of Alcohol and Drug Abuse Patient Records regulations: The Federal rules restrict any use of the information to criminally investigate or prosecute any alcohol or drug abuse patient.[facility] the event this information is protected by the Federal Confidentiality of Alcohol and Drug Abuse Patient Records regulations: The Federal rules restrict any use of the information to criminally investigate or prosecute any alcohol or drug abuse patient.[facility] the event this information is protected by the Federal Confidentiality of Alcohol and Drug Abuse Patient Records regulations: The Federal rules restrict any use of the information to criminally investigate or prosecute any alcohol or drug abuse patient.[facility] Center[facility] the event this information is protected by the Federal Confidentiality of Alcohol and Drug Abuse Patient Records regulations: The Federal rules restrict any use of the information to criminally investigate or prosecute any alcohol or drug abuse patient.[facility] Reason for Visit (unrecogniz ed section and content) Reason Comments Orders Reason Comments Patient Question Reason Onset Date Comments Population Health Navigation Outreach 07/10/2022 [facility] Reason Comments Appointment Reason Comments Medicare Wellness Exam Reason Comments Consult Reason Comments Sinus Problem drainage, nausea and cough x 10 days Reason Comments Recheck cough Reason Comments Results Reason Comments Outside Nephrology Reason Comments Mammogram Result Call Back Reason Comments Sinus Problem Congestion, pressure headache, x 8 days cough Reason Comments Outside [id number] Ordered Reason Comments Radiology US Specialty Diagnoses / Procedures Referred By Contac t Referred To Contact [facility] Diagnoses Abnormal mammogram Procedures US BREAST LTD RIGHT US BREAST UNI REAL TIME WITH IMAGE LIMITED Mindi Mckay, MARQUISE.TREND INVESTIGATOR [address] [place] [address] [facility] [address] [place] [address] Referral ID Status Reason Start Date Expiration Date V isits Requested Visits Authorized [id number] Closed Auto-Generate d Referral 02/13/2023 03/14/2024 1 1 Care Teams (unrecognized sec tion and content) Legal Researcher Relationship Specialty Start Date End Date Fortino Briones MD [address] [place] [address] PCP - General Family Practice 11/10/14 Legal Researcher Relationship Specialty Start Date End Date Fortino Briones MD [address] [place], [place] [id number] PCP - General Family Practice 11/10/14 Legal Researcher Relationship Specialty Start Date End Date Fortino Briones MD [address] [facility] [place] [address] PCP - General Family Practice 11/10/14 Legal Researcher Relationship Specialty Start Date End Date Fortino Briones MD [address] [facility] [place] [address] PCP - General Family Practice 11/10/14 Legal Researcher Relationship Specialty Start Date End Date Fortino Brionse MD [facility] [place] [address] PCP - General Family Medicine 11/10/14 Legal Researcher Relationship Specialty Start Date End Date Fortino Briones MD [facility] [place] [address] PCP - General Family Medicine 11/10/14 07/10/22 Legal Researcher Relationship Specialty Start Date End Date Fortino Briones MD [facility] [place] [address] PCP - General Family Medicine 07/12/22 Legal Researcher Relationship Specialty Start Date End Date Fortino Briones MD [facility] [place] [address] PCP - General Family Medicine 07/12/22 Legal Researcher Relationship Specialty Start Date End Date Fortino Briones MD [facility] [place] [address] PCP - General Family Medicine 07/12/22 Legal Researcher Relationship Specialty Start Date End Date Fortino Briones MD [facility] [place] [address] PCP - General Family Medicine 07/12/22 Legal Researcher Relationship Specialty Start Date End Date Fortino Briones MD [facility] [place] [address] PCP - General Family Medicine 07/12/22 Legal Researcher Relationship Specialty Start Date End Date Fortino Briones MD [address] [place] [address] PCP - General Family Medicine 07/12/22 Legal Researcher Relationship Specialty Start Date End Date Fortino Briones MD [address] [place] [address] PCP - General Family Medicine 07/12/22 Legal Researcher Relationship Specialty Start Date End Date Fortino Briones MD [address] [place] [address] PCP - General Family Medicine 07/12/22 Legal Researcher Relationship Specialty Start Date End Date Fortino Briones MD [address] [place] [address] PCP - General Family Medicine 07/12/22 Legal Researcher Relationship Specialty Start Date End Date Fortino Briones MD [address] [place] [address] PCP - General Family Medicine 07/12/22 Legal Researcher Relationship Specialty Start Date End Date Fortino Briones MD [address] [place] [address] PCP - General Family Medicine 07/12/22 Legal Researcher Relationship Specialty Start Date End Date Fortino Briones MD [address] [place] [address] PCP - General Family Medicine 07/12/22 Legal Researcher Relationship Specialty Start Date End Date Fortino Briones MD [address] [place] [address] PCP - General Family Medicine 07/12/22 INFORMATION SOURCE (unrecogn ized section and content) FOR RECORDS PERTAINING TO PATIENTS WHO ARE OR HAVE BEEN ENROLLED IN A CHEMICAL DEPENDENCY/SUBSTANCEABUSE PROGRAM, SOME INFORMATION MAY BE OMITTED. This clinical summary was aggregated from multiple sources. Caution should be exercised in using it in the provision of clinical care. This summary normalizes information from multiple sources, and as a consequence, information in this document may materially change the coding, format and clinical context of patient data. In addition, data may be omitted in some cases. CLINICAL DECISIONS SHOULD BE BASED ON THE PRIMARY CLINICAL RECORDS. [facility] [email or web address] [facility]. provides no warranty or guarantee of the accuracy or completeness of information in this document.
--- OUTSIDE RECORDS SUMMARY | 2023-05-25 03:44 | XMS RPT_ITS | CCD ---
Author Name Unknown Address [address] [place] [address] Organization [facility] Care Team Providers Care Line Maintenance Name Role Phone Fortino Briones MD Primary Care Provider [phone] LAZARA MCNULTY Attending Unavailable FORTINO BRIONES Primary [...] Translations: [AMILORIDE-HYDRO CHLOROTHIAZIDE] Drug Allergy 6 Intolerance [facility] Work Phone: (20 sources) Amoxicillin; Translations: [AMOXICILLIN] Drug Allergy 6 Rash [facility] Work Phone: (20 sources) Amoxicillin / Clavulanate; Translations: [AMOXICILLIN-POT CLAVULANATE] Drug Allergy 5 GI Upset [facility] Work Phone: (20 sources) Cephalexin; Translations: [CEPHALEXIN] Drug Allergy 6 Intolerance [facility] Work Phone: (20 sources) Doxycycline; Translations: [DOXYCYCLINE] Drug Allergy 5 Other: See Comments [facility] Work Phone: (20 sources) Grass pollen; Translations: [GRASS POLLEN] Drug Allergy 6 Unknown [facility] Work Phone: [phone] (20 sources) House dust mite; Translations: [DUST MITES] Allergy to substance 6 Unknown [facility] Work Phone: (20 sources) Lisinopril; Translations: [LISINOPRIL] Drug Allergy 1 Cough [facility] Work Phone: [phone] (20 sources) Sulfonamides (Antibiotic); Translations: [SULFA (SULFONAMIDE ANTIBIOTICS)] Drug Allergy 9 Rash [facility] Work Phone: (20 sources) Tree; Translations: [TREES] Allergy to substance 6 Unknown [facility] Work Phone: (20 sources) ERYTHRAMYCIN [Other] Propensity to adverse reactions 5 GI Upset [facility] Work Phone: (1 source) OTHER; Translations: [OTHER] Propensity to adverse reactions (disorder) 5 [facility] Repository Medications Current Medications Medication Drug Class(es) [...] Drug Class(es) Dates Sig (Normalized) Sig (Original) [id number] 200 actuat albuterol 0.09 mg/actuat metered dose [...] sources) Drug therapy finding; Translations: [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] Onset: 07-30-2017 02-18-2018 [...] temperature 98.29 [degF] Fouzia TERRAZAS-Renato Work Phone: [facility] 2023 10:45-0400 Body weight 67.5 kg Fouzia TERRAZAS-C Work Phone: [facility] 2023 10:45-0400 Diastolic blood pressure 74 mm[Hg] Fouzia TERRAZAS-Renato Work Phone: [facility] 2023 10:45-0400 Heart rate 98 /min Fouzia TERRAZAS-Renato Work Phone: [facility] 2023 10:45-0400 Respiratory rate 20 /min Fouzia Athy PA-C Work Phone: [facility] 2023 10:45-0400 SaO2% (BldA) [Mass fraction] 97 % Fouzia Athy PA-C Work Phone: [facility] 2023 10:45-0400 Systolic blood pressure 124 mm[Hg] Fouzia Athy PA-C Work Phone: [facility] 10-09-2022 13:30-0400 Body temperature 98.4 [degF] Lazara Mcnulty PA-C Work Phone: [facility] 10-09-2022 13:30-0400 Body weight 66.68 kg Lazara Mcnulty PA-C Work Phone: [facility] 10-09-2022 13:30-0400 Diastolic blood pressure 78 mm[Hg] Lazara Mcnulty PA-C Work Phone: [facility] 10-09-2022 13:30-0400 Heart rate 64 /min Lazara Mcnulty PA-C Work Phone: [facility] 10-09-2022 13:30-0400 Respiratory rate 16 /min Lazara Mcnulty PA-C Work Phone: [facility] 10-09-2022 13:30-0400 SaO2% (BldA) [Mass fraction] 100 % Lazara Mcnulty PA-C Work Phone: [facility] 10-09-2022 13:30-0400 Systolic blood pressure 102 mm[Hg] Lazara Mcnulty PA-C Work Phone: [facility] 09-15-2022 08:58-0400 Body temperature 97.7 [degF] Lazara Mcnulty PA-C Work Phone: [facility] 09-15-2022 08:58-0400 Body weight 66.22 kg Lazara Mcnulty PA-C Work Phone: [facility] 09-15-2022 08:58-0400 Diastolic blood pressure 76 mm[Hg] Lazara Mcnulty PA-C Work Phone: [facility] 09-15-2022 08:58-0400 Heart rate 98 /min Lazara Mcnulty PA-C Work Phone: [facility] 09-15-2022 08:58-0400 Respiratory rate 18 /min Lazara Mcnulty PA-C Work Phone: [facility] 09-15-2022 08:58-0400 SaO2% (BldA) [Mass fraction] 99 % Lazara Mcnulty PA-C Work Phone: [facility] 09-15-2022 08:58-0400 Systolic blood pressure 108 mm[Hg] Lazaracarlos Mcnulty PA-C Work Phone: [facility] 09-11-2022 10:36-0400 Body temperature 99.61 [degF] Fouzia Athy PA-C Work Phone: [facility] 09-11-2022 10:36-0400 Body weight 67.13 kg Fouzia Athy PA-C Work Phone: [facility] 09-11-2022 10:36-0400 Diastolic blood pressure 62 mm[Hg] Fouzia Athy PA-C Work Phone: [facility] 09-11-2022 10:36-0400 Heart rate 114 /min Fouzia Athy PA-C Work Phone: [facility] 09-11-2022 10:36-0400 Respiratory rate 18 /min Fouzia Athy PA-C Work Phone: [facility] 09-11-2022 10:36-0400 SaO2% (BldA) [Mass fraction] 95 % Fouzia Athy PA-C Work Phone: [facility] 09-11-2022 10:36-0400 Systolic blood pressure 122 mm[Hg] Fouzia Athy PA-C Work Phone: [facility] 08-10-2022 16:11-0500 Body weight 69.4 kg Alicia Hamlin APRN.CNP Work Phone: [facility] 08-10-2022 16:11-0500 Diastolic blood pressure 80 mm[Hg] Alicia Alexoble TAPING SUPERVISOR.AFFILIATE MARKETING SPECIALIST Work Phone: [facility] 08-10-2022 16:11-0500 Heart rate 80 /min Alicia Hamlin TAPING SUPERVISOR.AFFILIATE MARKETING SPECIALIST Work Phone: [facility] 08-10-2022 16:11-0500 Respiratory rate 14 /min Alicia Hamlin TAPING SUPERVISOR.AFFILIATE MARKETING SPECIALIST Work Phone: [facility] 08-10-2022 16:11-0500 Systolic blood pressure 124 mm[Hg] Alicia Yakelin TAPING SUPERVISOR.AFFILIATE MARKETING SPECIALIST Work Phone: [facility] 01-13-2022 07:01-0400 Body height 165.7 cm Mindi Nely TAPING SUPERVISOR.AFFILIATE MARKETING SPECIALIST Work Phone: [facility] 01-13-2022 07:01-0400 Body weight 69.67 kg Mindi Nely TAPING SUPERVISOR.AFFILIATE MARKETING SPECIALIST Work Phone: [facility] 01-13-2022 07:01-0400 Diastolic blood pressure 66 mm[Hg] Mindi [place] TAPING SUPERVISOR.AFFILIATE MARKETING SPECIALIST Work Phone: [facility] 01-13-2022 07:01-0400 Systolic blood pressure 120 mm[Hg] Mindi [place] TAPING SUPERVISOR.AFFILIATE MARKETING SPECIALIST Work Phone: [facility] Encounters Encounter Date Encounter Type Care Provider Facility Start: 05-22-2023 End: 05-22-2023 ambulatory FORTINO BRIONES Facility:[facility] Start: 03-13-2023 End: 03-13-2023 ambulatory FORTINO BRIONES Facility:[facility] Start: 03-13-2023 End: 03-13-2023 Subsequent hospital visit by physician Diagnostic Mammo [facility] Mammogram Procedures Date Procedure Procedure Detail Performing Clinician Start: 03-13-2023 Digital breast tomosynthesis unilateral Mindi Nicholasf TAPING SUPERVISOR.AFFILIATE MARKETING SPECIALIST Work Phone: Start: 03-13-2023 Us breast uni real t surya with image limited Mindi Mckay TAPING SUPERVISOR.REBECCA Work Phone: Start: 02-09-2023 Screening mammograph y bi 2-view breast inc cad Mindi Mckay TAPING SUPERVISOR.REBECCA Work Phone: Start: 08-10-2022 Ecg routine ecg w/le ast 12 lds i&r only [facility] Provider Start: 01-13-2022 End: 01-13-2022 Mammography Mindi Mckay TAPING SUPERVISOR.C CERAMIC ENGINEERING PROFESSOR Work Phone: Start: 01-27-2021 Colonoscopy Mindi goldberg TAPING SUPERVISOR.REBECCA Work Phone: Start: 10-15-2020 Adult depression scr eening assessment Mindi Mckay TAPING SUPERVISOR.REBECCA Work Phone: Start: 01-17-2018 Lipid 1996 panel - S connor or Plasma Mindi Mckay TAPING SUPERVISOR.REBECCA Work Phone: Plan of Treatment Date Care Activity Detail Author Start: 01-27-2026 Colonoscopy COLONOSCOPY [facility] Start: 01-27-2026 COLORECTAL CANCER SCREENING COLORECTAL CANCER SCREENING [facility] Start: 02-26-2024 BP Controlled (<130/80) BP Controlle d (<130/80) [facility] Start: 02-10-2024 Mammography Mammogram Screening [facility] Start: 01-01-2024 Urine microalbumin profile [facility] Start: 10-10-2023 ANNUAL PCP TEAM RN CONCURRENT REVIEW JANIA DISEASE VISIT ANNUAL PCP TEAM CHRONIC DISEASE VISIT [facility] Start: 10-10-2023 BP CONTROLLED (<130/80) BP CONTROLLE D (<130/80) [facility] Start: 09-16-2023 ANNUAL PCP TEAM RN CONCURRENT REVIEW JANIA DISEASE VISIT ANNUAL PCP TEAM CHRONIC DISEASE VISIT [facility] Start: 09-16-2023 BP CONTROLLED (<130/80) BP CONTROLLE D (<130/80) [facility] Start: 09-12-2023 BP CONTROLLED (<130/80) BP CONTROLLE D (<130/80) [facility] Start: 08-11-2023 ANNUAL PCP TEAM RN CONCURRENT REVIEW JANIA DISEASE VISIT ANNUAL PCP TEAM CHRONIC DISEASE VISIT [facility] Start: 08-11-2023 BP CONTROLLED (<130/80) BP CONTROLLE D (<130/80) [facility] Start: 06-03-2023 ADVANCE DIRECTIVE DISCUSSION ADVANCE DIRECTIVE DISCUSSION [facility] Immunizations Immunization Date Immunization Notes Care Provider Karol coffman 03-20-2022 influenza virus vacc ine, unspecified formulation Mindi [place] TAPING SUPERVISOR.AFFILIATE MARKETING SPECIALIST Work Phone: [facility] 05-23-2020 pneumococcal polysaccharide vaccine, 23 valent Alicia Knoble TAPING SUPERVISOR.AFFILIATE MARKETING SPECIALIST Work Phone: [facility] Work Phone: 05-13-2019 pneumococcal conjuga te vaccine, 13 valent Mindi [place] TAPING SUPERVISOR.AFFILIATE MARKETING SPECIALIST Work Phone: [facility] 03-18-2019 influenza, high dose seasonal, preservative-free Mindi Nely TAPING SUPERVISOR.AFFILIATE MARKETING SPECIALIST Work Phone: [facility] 04-04-2018 influenza, injectabl e, quadrivalent, contains preservative Mindi Nely TAPING SUPERVISOR.AFFILIATE MARKETING SPECIALIST Work Phone: [facility] 03-26-2016 influenza, injectabl e, quadrivalent, preservative free Mindi [place] TAPING SUPERVISOR.AFFILIATE MARKETING SPECIALIST Work Phone: [facility] Work Phone: 03-20-2015 influenza, injectabl e, quadrivalent, preservative free Mindi Nely TAPING SUPERVISOR.AFFILIATE MARKETING SPECIALIST Work Phone: [facility] 12-31-2013 tetanus toxoid, redu leticia diphtheria toxoid, and acellular pertussis vaccine, adsorbed Mindi [place] TAPING SUPERVISOR.AFFILIATE MARKETING SPECIALIST Work Phone: [facility] 03-23-2010 influenza virus vacc ine, unspecified formulation Mindi [place] TAPING SUPERVISOR.AFFILIATE MARKETING SPECIALIST Work Phone: [facility] Work Phone: 05-17-2009 novel influenza-H1N1 -09, all formulations Mindi [place] TAPING SUPERVISOR.AFFILIATE MARKETING SPECIALIST Work Phone: [facility] Work Phone: 04-21-2006 influenza virus vacc ine, unspecified formulation Mindi Nely TAPING SUPERVISOR.AFFILIATE MARKETING SPECIALIST Work Phone: [facility] Work Phone: 03-04-2004 influenza virus vacc ine, whole virus Mindi Nely TAPING SUPERVISOR.AFFILIATE MARKETING SPECIALIST Work Phone: [facility] Work Phone: 02-14-2003 diphtheria and tetan us toxoids, adsorbed for pediatric use Mindi [place] TAPING SUPERVISOR.AFFILIATE MARKETING SPECIALIST Work Phone: [facility] Work Phone: Payers Date Payer Category Payer Medicare MEDICARE MEDICAR E A AND B [id number] 2019-Present [phone] [address] [address] [place] [address] Medicare [id number] 2019 Medicare [id number] 2019 Medicare [id number] 2019 Unknown MMO MMO MEDICARE SUPPLEMENT [id number] 2019-Present [phone] [address] [place] [address] Indemnity [id number] Social History Date Type Detail Facility Start: 03-30-2011 Tobacco smoking stat [facility] Never smoked tobacco [facility] Start: 03-30-2011 Tobacco use and exposure Smoke less tobacco non-user [facility] Start: 01-13-2022 End: 2023 Alcohol intake Current non-drinker of alcohol (finding) [facility] Start: 01-01-2020 End: 08-03-2022 History SDOH Social Connections Phone 5 [facility] Start: 01-01-2020 End: 08-03-2022 History SDOH Social Connections Catholic 3 [facility] Start: 01-01-2020 End: 08-03-2022 History SDOH Social Connections Membership 1 [facility] Start: 01-01-2020 End: 08-03-2022 History SDOH Social Connections Living 4 [facility] Start: 01-01-2020 History SDOH Physica l Activity MPS 12 [facility] Start: 01-01-2020 End: 08-03-2022 History SDOH Transport Med 2 [facility] Start: 01-01-2020 Education 13 [facility] Start: 1955 Sex Assigned At Female C [facility] Start: 01-03-2022 End: 01-17-2022 Exposure to SARS-CoV-2 (event) Not sure [facility] Work Phone: Start: 08-03-2022 History SDOH Alcohol Std Drinks 0 [facility] Start: 08-03-2022 End: 10-09-2022 History of Social function [facility] Start: 08-03-2022 End: 10-09-2022 Social connection and isolation panel [facility] Do you belong to any clubs or organizations such as mosque groups, unions, fraternal or athletic groups, or school groups? Yes [facility] Are you now , , , , never or living with a partner? [facility] How often to you hav e a drink containing alcohol? Never [facility] How many standard dr inks containing alcohol do you have on a typical day? Patient does not drink [facility] Do you feel stress - tense, restless, nervous, or anxious, or unable to sleep at night because your mind is troubled all the time - these days [OSQ] Not at all [facility] (I/We) worried wheth er (my/our) food would run out before (I/we) got money to buy more. Never true [facility] In the past 12 month s, was there a time when you were not able to pay the mortgage or rent on time? No [facility] Start: 10-10-2020 Gender identity Identifies as female gender (finding) [facility] Clinical Notes 01-27-2021 to 05-22-2023 Jacki Price RDMS - 03/13/2023 11:30 AM Emilie Wallace Mammo Tech - 03/13/2023 11:00 AM Aydee Baron LPN - 02/26/2023 12:23 PM Fouzia Stallings PA-C - 2023 11:17 AM EDT Note Date & Type Note Facility 05-22-2023 Note HNO ID: [id number] Author: Mohini Davidson APRN.AFFILIATE MARKETING SPECIALIST Service: ? Author Type: Nurse Practitioner Type: Progress Notes Filed: 05/22/2023 10:05 AM Note Text: Subjective The history is provided by the patient. No sign language teacher was used. JAZMINE Cardozo is a 68 [...] kidney disease) stage 3, GFR 30-59 ml/min ([facility]) 2013 Diverticulosis of colon 08/04/2005 Duodenitis without [...] have confirmed and edited as necessary, the [facility] Review of Systems Constitutional: Negative for [...] of concepts an (more content not included)... [facility] 03-13-2023 Note HNO ID: [id number] Author: Jacki Price RDMS Service: ? Author Type: Telegraph Equipment Maintainer Type: Progress Notes Filed: 03/13/2023 1:40 PM [...] RDMS RVT March 13, 2023 1:40 PM [facility] 03-13-2023 Note HNO ID: [id number] Author: Emilie Cordon Knok Service: ? Author Type: Senior Game Designer Type: Progress Notes Filed: 03/13/2023 11:43 AM [...] Estefania Prescott March 13, 2023 10:56 AM [facility] 03-13-2023 History of Present illness Narrative Radiology [...] 2023 1:40 PM documented in this encounter [facility] 03-13-2023 History of Present illness [...] 2023 10:56 AM documented in this encounter [facility] 02-27-2023 Note HNO ID: [id number] Author: Mireille Valladares Ma Service: ? Author Type: ? Type: Progress Notes Filed: 03/01/2023 10:25 AM Note Text: Scan on 02/27/2023 3:29 AM by ProviderKofi PA-C: Consultation - Rheumatology [facility] 02-26-2023 Note HNO ID: [id number] Author: Aydee Canela LPN Service: ? Author Type: ? Type: Progress Notes Filed: 02/26/2023 12:40 PM Note Text: Scan on 02/26/2023 7:37 AM by ProviderKofi PA-C: Miscellaneous Lab [facility] 02-26-2023 History of Present illness Narrative Scan on 02/26/2023 7:37 AM by Kofi Lilly PA-C: Miscellaneous Lab documented in this encounter [facility] 2023 Note HNO ID: [id number] Author: Fouzia Quiroz PA-C Service: ? Author Type: Physician Microarray Operations Vice President Type: Progress Notes Filed: 2023 11:22 AM Note Text: This note was created using [employer]. Luli Cardozo is a 68 year old [...] kidney disease) stage 3, GFR 30-59 ml/min ([facility]) 2013 Diverticulosis of colon 08/04/2005 Duodenitis without [...] gammopathy 06/27/2013 Seborrheic Keratosis 11/07/2009 Sjogren's disease ([facility]) Solar lentigo 11/07/2009 Current Outpatient Medications Medication [...] hx cluster headache (more content not included)... [facility] 2023 History of Present illness Narrative This note was created using Death by Partyriter. Luli Cardozo is a 68 year old [...] kidney disease) stage 3, GFR 30-59 ml/min ([facility]) 2013 Diverticulosis of colon 08/04/2005 Duodenitis without [...] Fouzia Quiroz PA-C documented in this encounter [facility] 2023 Instructions Fouzia Quiroz PA-C - 2023 10:54 AM EDT Flonase Plain mucinex otc If not improving in 3-5 days see pcp. documented in this encounter [facility] 02-12-2023 Miscellaneous Notes February 13, 2023 PID: [id number] Richelle Cardozo [address] [place] [address] Dear Ms. Cardzoo, Your recent breast imaging exam on 02/09/2023 showed a possible finding that requires additional imaging studies for a complete evaluation. Most such findings are probably benign (not cancer). If you have a healthcare provider who ordered/prescribed your screening mammogram: Please call [phone] or [phone] to schedule an appointment for your additional [...] and reports are kept on file at [facility] as part of your permanent medical record, and are available for your continuing care. Thank you for allowing us to help in meeting your health care needs. Sincerely, Dr. Ramirez Interpreting Radiologist [facility] (Additional imaging) documented in this encounter [facility] 02-09-2023 Note HNO ID: [id number] Author: Monika Nguyen Mammo Tech Service: ? Author Type: Senior Game Designer Type: Progress Notes Filed: 02/09/2023 10:16 AM [...] DATA: Not applicable SIGNED BY: Monika Nguyen Knok February 09, 2023 9:59 AM [facility] 02-09-2023 History of Present illness Narrative Radiology [...] DATA: Not applicable SIGNED BY: Monika Nguyen Knok February 09, 2023 9:59 AM documented in this encounter [facility] 11-30-2022 Note HNO ID: [id number] Author: Aydee Canela LPN Service: ? Author Type: ? Type: Progress Notes Filed: 11/30/2022 9:15 AM Note Text: Scan on 11/28/2022 11:31 AM by External Provider, PA-C: Consultation - Nephrology/Renal [facility] 11-30-2022 History of Present illness Narrative Scan on 11/28/2022 11:31 AM by External Provider, PA-C: Consultation - Nephrology/Renal documented in this encounter [facility] 11-24-2022 Note HNO ID: [id number] Author: Kimberly Fields MA Service: ? Author Type: Metal Pattern Maker Type: Progress Notes Filed: 11/25/2022 8:46 AM Note Text: Scan on 11/22/2022 8:10 AM by External Provider, PA-C: Chemistry Scan on 11/22/2022 7:35 AM by External Provider, PANicoletteC: Hematology Kimberly Fields MA [facility] 11-24-2022 History of Present illness Narrative Scan on 11/22/2022 8:10 AM by External Provider, PRASHANTH: Chemistry Scan on 11/22/2022 7:35 AM by External Provider, PRASHANTH: Hematology Kimberly Fields MA documented in this encounter [facility] 11-10-2022 Note HNO ID: [id number] Author: RT Charmaine(R) Service: Nuclear Medicine Author [...] RT Charmaine(R) November 10, 2022 12:13 PM [facility] 10-09-2022 Note HNO ID: [id number] Author: Lazara Mcnulty PA-C Service: ? Author Type: Physician Microarray Operations Vice President Type: Progress Notes Filed: 10/09/2022 1:49 PM [...] kidney disease) stage 3, GFR 30-59 ml/min ([facility]) 2013 Diverticulosis of colon 08/04/2005 Duodenitis without [...] Never Vaping Us (more content not included)... [facility] 10-09-2022 Instructions Lazara Mcnulty PA-C - 10/09/2022 1:38 PM EDT Repeat CXR in about 1 month. Return if symptoms change or worsen. documented in this encounter [facility] 10-09-2022 History of Present illness [...] kidney disease) stage 3, GFR 30-59 ml/min ([facility]) 2013 Diverticulosis of colon 08/04/2005 Duodenitis without [...] Lazara Mcnulty PA-C documented in this encounter [facility] 10-09-2022 Miscellaneous Notes Pt notified [...] Lazara Mcnulty PA-C documented in this encounter [facility] 10-06-2022 Note HNO ID: [id number] Author: RT Lorenza(R) Service: Radiology Author Type: [...] RT Lorenza(R) October 06, 2022 11:09 AM [facility] 09-15-2022 Note HNO ID: [id number] Author: Lazara Mcnulty PA-C Service: ? Author Type: Physician Microarray Operations Vice President Type: Progress Notes Filed: 09/15/2022 9:14 AM [...] kidney disease) stage 3, GFR 30-59 ml/min ([facility]) 2013 Diverticulosis of colon 08/04/2005 Duodenitis without [...] 1 capsule by (more content not included)... [facility] 09-15-2022 History of Present illness Narrative Chief [...] kidney disease) stage 3, GFR 30-59 ml/min ([facility]) 2013 Diverticulosis of colon 08/04/2005 Duodenitis without [...] as needed. - XR CHEST 2V FRONTAL/LAT aLzara Mcnulty PA-C documented in this encounter [facility] 09-11-2022 Note HNO ID: [id number] Author: Fouzia Quiroz PA-C Service: ? Author Type: Physician Microarray Operations Vice President Type: Progress Notes Filed: 09/11/2022 11:45 AM Note Text: This note was created using Death by Partyriter. Luli Cardozo is a 67 year old female. HPI Patient presents with a chief complaint of cough and chest congestion for 10 days. She has had fevers off and on. Temp here 99.6. She has used Robitussin [id number] without relief. Her grandkids were sick recently [...] kidney disease) stage 3, GFR 30-59 ml/min ([facility]) 2013 Diverticulosis of colon 08/04/2005 Duodenitis without [...] Aortic valve replacemen (more content not included)... [facility] 09-11-2022 Note HNO ID: [id number] Author: RT Lorenza(R) Service: Radiology Author Type: [...] RT Lorenza(R) September 11, 2022 10:51 AM [facility] 09-11-2022 History of Present illness Narrative This note was created using Death by Partyriter. Subjective Richelle Cardozo is a 67 year old female. HPI Patient presents with a chief complaint of cough and chest congestion for 10 days. She has had fevers off and on. Temp here 99.6. She has used Robitussin [id number] without relief. Her grandkids were sick recently [...] kidney disease) stage 3, GFR 30-59 ml/min ([facility]) 2013 Diverticulosis of colon 08/04/2005 Duodenitis without [...] Fouzia Quiroz PA-C documented in this encounter [facility] 09-07-2022 Note HNO ID: [id number] Author: Kimberly Fields MA Service: ? Author Type: Metal Pattern Maker Type: Progress Notes Filed: 09/07/2022 4:19 PM Note Text: Scan on 09/02/2022 12:53 AM by External Provider: Consultation - Orthopedics Kimberly Fields MA [facility] 09-07-2022 History of Present illness Narrative Scan on 09/02/2022 12:53 AM by External Provider: Consultation - Orthopedics Kimberly Fields MA documented in this encounter [facility] 08-10-2022 Note HNO ID: [id number] Author: Alicia Hamlin APRN.REBECCA Service: ? Author Type: Nurse Practitioner Type: Progress Notes Filed: 08/10/2022 5:25 PM Note Text: Richelle Cardzoo is a 67 year old female here for a Medicare Initial Annual Wellness Visit Health Risk Assessment In general, health is: Very good Concerns with balance: Not at all Concerns with teeth or dentures: Not at all Concerns with sexual function: Not at all [place] anxious, stressed, angry, irritable, lonely, isolated, or [...] kidney disease) stage 3, GFR 30-59 ml/min ([facility]) 2013 Diverticulosis of colon 08/04/2005 Duodenitis without [...] SPEC WHEN PFRMD (more content not included)... [facility] 08-10-2022 Instructions Alicia Hamlin APRN.CNP - 08/10/2022 4:49 PM EST Will notify patient of labs ordered once results received from finisher polisher Continue current medications Continue follow up with specialists as scheduled Follow up in 1 year documented in this encounter [facility] 08-10-2022 History of Present illness Narrative Richelle Cardozo is a 67 year old female here for a Medicare Initial Annual Wellness Visit Health Risk Assessment In general, health is: Very good Concerns with balance: Not at all Concerns with teeth or dentures: Not at all Concerns with sexual function: Not at all [place] anxious, stressed, angry, irritable, lonely, isolated, or [...] kidney disease) stage 3, GFR 30-59 ml/min ([facility]) 2013 Diverticulosis of colon 08/04/2005 Duodenitis without [...] diet of 1000 mg/day for under 50, 1118-2105 mg/day for 50+ - Discussed need and [...] diet of 1000 mg/day for under 50, 7786-4902 mg/day for 50+ - Discussed need and benefit for weight loss. BMI 25.27 kg/(m^2) - Depression screening tool completed and reviewed with patient. Based on score and interview, patient is not at risk for depression and recommended no further intervention at this time. - Follow up for annual exam in one year Alicia Hamlin APRN.CNP documented in this encounter [facility] 07-13-2022 Miscellaneous Notes Patient is [...] Kimberly Fields MA documented in this encounter [facility] 07-10-2022 Note HNO ID: [id number] Author: Curtis Head MA Service: ? Author Type: Metal Pattern Maker Type: Progress Notes Filed: 07/11/2022 9:48 AM [...] Head MA July 10, 2022 2:04 PM [facility] 07-10-2022 History of Present illness Narrative POPULATION [...] 2022 2:04 PM documented in this encounter [facility] 07-10-2022 Note Patient Outreach (KEYANNA TNAV) RICHELLE CARDOZO ([id number]) 1955 F Date Time Provider Department 07/10/22 [...] for gynecological ex (more content not included)... [facility] 02-13-2022 Miscellaneous Notes Pt notified of same. Aydee Canela LPN Prescription sent. Patient started having Covid Symptoms last 02/09/2022. Patient tested positive for Covid on Home test. Patient states that most of her symptoms are gone. Patient states that the only symptom lingering is nausea. Patient asking if a prescription for nausea can be sent to [facility]? Please review and advise, Shea Rain RN documented in this encounter [facility] 01-13-2022 Miscellaneous Notes January 13, 2022 PID: [id number] Richelle Cardozo [address] [place] [address] Dear Ms. Cardozo, Your recent breast imaging exam on 01/13/2022 showed a possible finding that requires additional imaging studies for a complete evaluation. Most such findings are probably benign (not cancer). If you have a healthcare provider who ordered/prescribed your screening mammogram: Please call [phone] or [phone]: [phone] to schedule an appointment for your additional [...] and reports are kept on file at [facility] as part of your permanent medical record, and are available for your continuing care. Thank you for allowing us to help in meeting your health care needs. Sincerely, Dr. Wagner Interpreting Radiologist [facility] (Additional imaging) documented in this encounter [facility] 01-13-2022 History of Present illness [...] 2022 7:30 AM documented in this encounter [facility] 01-13-2022 History of Present illness Narrative Aleida is a 66 year old who presents for an annual gynecologic exam without complaints. Postmenopausal: Yes HRT use: No. Last Pap: 2016 normal HPV: 2017 negative History of abnormal pap: No Last mammogram: 2021 pending History of abnormal mammogram: No Sexually active: No OB History T2 L2 SAB0 IAB0 Ectopic1 Multiple0 Live Births0 Ekg Manager History LMP: Postmenopausal Age at Menarche: Age at First : Age at Menopause: Ekg Manager History Comments: Sexual Activity: Not Currently; No [...] kidney disease) stage 3, GFR 30-59 ml/min ([facility]) 2013 Diverticulosis of colon 08/04/2005 Duodenitis without [...] external genitalia normal, normal Bartholin's glands, urethra, Cuney's glands, no vulvar lesions, no cervical lesions, [...] up to date- done in 2020 by [employer] 2) Follow up one year or sooner as needed Mindi Mckay APRN.CNP documented in this encounter [facility] documented as of this encounter (statuses as of 01/13/2022) [facility] History of Past illness Narrative* Problem Noted Date Resolved Date Polyp of colon 01/27/2021 01/27/2021 Encounter for gynecological examination without abnormal finding 10/21/2015 [facility] of [facility] 01/07/2015 [...] of this encounter (statuses as of 01/13/2022) [facility] History of Past illness Narrative* Problem Noted Date Resolved Date Polyp of colon 01/27/2021 01/27/2021 Encounter for gynecological examination without abnormal finding 10/21/2015 12/02/2015 Overview: [facility]. Family history of colon cancer [...] of this encounter (statuses as of 01/14/2022) [facility] History of Past illness Narrative* Problem Noted Date Resolved Date Polyp of colon 01/27/2021 01/27/2021 Encounter for gynecological examination without abnormal finding 10/21/2015 12/02/2015 [facility] Family history of colon cancer 01/07/2015 [...] of this encounter (statuses as of 01/17/2022) [facility] History of Past illness Narrative* Problem Noted Date Resolved Date Polyp of colon 01/27/2021 01/27/2021 Encounter for gynecological examination without abnormal finding 10/21/2015 12/02/2015 [facility] of [facility] cancer 01/07/2015 [...] of this encounter (statuses as of 02/13/2022) [facility] History of Past illness Narrative* Problem Noted Date Resolved Date Polyp of colon 01/27/2021 01/27/2021 Encounter for gynecological examination without abnormal finding 10/21/2015 12/02/2015 [facility] history of [facility] cancer 01/07/2015 [...] of this encounter (statuses as of 04/05/2022) [facility] History of Past illness Narrative* Problem Noted Date Resolved Date Polyp of colon 01/27/2021 01/27/2021 Encounter for gynecological examination without abnormal finding 10/21/2015 12/02/2015 [facility] Family history of colon cancer 01/07/2015 [...] of this encounter (statuses as of 07/11/2022) [facility] History of Past illness Narrative* Problem Noted Date Resolved Date Polyp of colon 01/27/2021 01/27/2021 Encounter for gynecological examination without abnormal finding 10/21/2015 12/02/2015 [facility] Family history of colon cancer 01/07/2015 [...] of this encounter (statuses as of 07/13/2022) [facility] History of Past illness Narrative* Problem Noted Date Resolved Date Polyp of colon 01/27/2021 01/27/2021 Encounter for gynecological examination without abnormal finding 10/21/2015 12/02/2015 [facility] Family history of colon cancer 01/07/2015 [...] of this encounter (statuses as of 08/11/2022) [facility] History of Past illness Narrative* Problem Noted Date Resolved Date Polyp of colon 01/27/2021 01/27/2021 Encounter for gynecological examination without abnormal finding 10/21/2015 12/02/2015 [facility] Family history of [facility] cancer 01/07/2015 [...] of this encounter (statuses as of 09/08/2022) [facility] History of Past illness Narrative* Problem Noted Date Resolved Date Polyp of colon 01/27/2021 01/27/2021 Encounter for gynecological examination without abnormal finding 10/21/2015 12/02/2015 [facility] Family history of colon cancer 01/07/2015 [...] of this encounter (statuses as of 09/11/2022) [facility] of Past illness Narrative* Problem Noted Date Resolved Date Polyp of colon 01/27/2021 01/27/2021 Encounter for gynecological examination without abnormal finding 10/21/2015 12/02/2015 [facility] Family history of colon cancer 01/07/2015 [...] of this encounter (statuses as of 09/15/2022) [facility] of Past illness Narrative* Problem Noted Date Resolved Date Polyp of colon 01/27/2021 01/27/2021 Encounter for gynecological examination without abnormal finding 10/21/2015 12/02/2015 [facility] Family history of colon cancer 01/07/2015 [...] of this encounter (statuses as of 10/09/2022) [facility] History of Past illness Narrative* Problem Noted Date Resolved Date Polyp of colon 01/27/2021 01/27/2021 Encounter for gynecological examination without abnormal finding 10/21/2015 12/02/2015 [facility] Family history of colon cancer 01/07/2015 [...] of this encounter (statuses as of 10/09/2022) [facility] of Past illness Narrative* Problem Noted Date Resolved Date Polyp of colon 01/27/2021 01/27/2021 Encounter for gynecological examination without abnormal finding 10/21/2015 12/02/2015 Overview: [facility]. Family history of colon cancer 01/07/2015 [...] of this encounter (statuses as of 11/25/2022) [facility] History of Past illness Narrative* Problem Noted Date Resolved Date Polyp of colon 01/27/2021 01/27/2021 Encounter for gynecological examination without abnormal finding 10/21/2015 12/02/2015 Overview: [facility]. Family history of colon cancer 01/07/2015 [...] of this encounter (statuses as of 11/30/2022) [facility] of Past illness Narrative* Problem Noted Date Diagnosed Date Resolved Date Polyp of colon 01/27/2021 01/27/2021 Encounter for gynecological examination without abnormal finding 10/21/2015 12/02/2015 [facility] Family history of colon cancer 01/07/2015 [...] of this encounter (statuses as of 02/13/2023) [facility] of Past illness Narrative* Problem Noted Date Diagnosed Date Resolved Date Polyp of colon 01/27/2021 01/27/2021 Encounter for gynecological examination without abnormal finding 10/21/2015 12/02/2015 [facility] Family history of colon cancer 01/07/2015 [...] of this encounter (statuses as of 02/13/2023) [facility] of Past illness Narrative* Problem Noted Date Diagnosed Date Resolved Date Polyp of colon 01/27/2021 01/27/2021 Encounter for gynecological examination without abnormal finding 10/21/2015 12/02/2015 Overview: [facility]. Family history of colon cancer 01/07/2015 [...] of this encounter (statuses as of 02/14/2023) [facility] History of Past illness Narrative* [...] of this encounter (statuses as of 2023) [facility] History of Past illness Narrative* Problem Noted Date Diagnosed Date Resolved Date Polyp of colon 01/27/2021 01/27/2021 Encounter for gynecological examination without abnormal finding 10/21/2015 12/02/2015 Overview: [facility]. Family history of colon cancer 01/07/2015 [...] of this encounter (statuses as of 02/26/2023) [facility] History of Past illness Narrative* Problem Noted Date Diagnosed Date Resolved Date Polyp of colon 01/27/2021 01/27/2021 Encounter for gynecological examination without abnormal finding 10/21/2015 12/02/2015 [facility] Family history of [facility] cancer 01/07/2015 [...] of this encounter (statuses as of 04/08/2023) [facility] History of Past illness Narrative* Problem Noted Date Diagnosed Date Resolved Date Polyp of colon 01/27/2021 01/27/2021 Encounter for gynecological examination without abnormal finding 10/21/2015 12/02/2015 [facility] Family history of colon cancer 01/07/2015 [...] of this encounter (statuses as of 04/08/2023) [facility] History of Past illness Narrative* Problem Noted Date Diagnosed Date Resolved Date Polyp of colon 01/27/2021 01/27/2021 Encounter for gynecological examination without abnormal finding 10/21/2015 12/02/2015 Overview: [facility]. Family history of colon cancer 01/07/2015 [...] of this encounter (statuses as of 04/08/2023) [facility] Diagnosis Encounter for gynecological examination (general) (routine) without abnormal findings- Primary Encounter for screening mammogram for breast cancer [facility] Diagnosis Abnormal mammogram- Primary Abnormal mammogram, unspecified [facility] Diagnosis Encounter for screening mammogram for breast cancer [facility] Diagnosis Medicare annual wellness visit, initial- Primary Routine general medical examination at a health care facility Essential hypertension Unspecified essential hypertension Mixed hyperlipidemia Anemia of chronic disease Anemia of other chronic disease Stage 3a chronic kidney disease (HCC) Celiac disease Well adult exam Routine general medical examination at a health care facility [facility] Diagnosis Bacterial pneumonia- Primary Bacterial pneumonia, unspecified [facility] Diagnosis Bacterial pneumonia- Primary Bacterial pneumonia, unspecified [facility] Diagnosis Bacterial pneumonia- Primary Bacterial pneumonia, unspecified [facility] Diagnosis Bacterial pneumonia- Primary Bacterial pneumonia, unspecified [facility] Diagnosis Abnormal mammogram- Primary Abnormal mammogram, unspecified [facility]* Diagnosis Acute pansinusitis, recurrence not specified- Primary [facility] Diagnosis Encounter for screening mammogram for breast cancer [facility] Diagnosis Abnormal mammogram Abnormal mammogram, unspecified [facility] Diagnosis Abnormal mammogram Abnormal mammogram, unspecified documented in this encounter [facility] for referral (narrative)* Diagnostic Procedure Only (Routine) - Pending Review Specialty Diagnoses / Procedures Referred By Gal trevino Referred To Contact [facility] Diagnoses Encounter for screening mammogram for breast cancer Procedures SUSHIL SCREENING SCREENING MAMMOGRAPHY BI 2-VIEW BREAST INC CAD Mindi Mckay APRN.AFFILIATE MARKETING SPECIALIST [address] [place] [address] [facility] [address] [id number] Referral ID Status Reason Start Date Expiration Date Visits Requested Visits Authorized [id number] Pending Review Auto-Generat ed Referral 01/13/2022 02/12/2023 1 1 [facility] for referral (narrative)* Diagnostic Procedure Only (Routine) - Authorized Specialty Diagnoses / Procedures Referred By Gal t Referred To Contact [facility] Diagnoses Abnormal mammogram Procedures US BREAST LTD RT US BREAST UNI REAL TIME WITH IMAGE LIMITED Mindi Mckay APRN.AFFILIATE MARKETING SPECIALIST [address] [place] [address] [facility] [address] [place] [address] Referral ID Status Reason Start Date Expiration Date Visits Requested Visits Authorized [id number] Authorized Auto-Generat ed Referral 01/13/2022 02/12/2023 1 1 * Diagnostic Procedure Only (Routine) - Authorized Specialty Diagnoses / Procedures Referred By Gal trevino Referred To Contact [facility] Diagnoses Abnormal mammogram Procedures SUSHIL DIAGNOSTIC RT DIAGNOSTIC MAMMOGRAPHY COMPUTER-AIDED DETCJ UNI Mindi Mckay APRN.AFFILIATE MARKETING SPECIALIST [address] [place] [address] [facility] [address] [place] [address] Referral ID Status Reason Start Date Expiration Date Visits Requested Visits Authorized [id number] Authorized Auto-Generat ed Referral 01/13/2022 02/12/2023 1 1 [facility] for referral (narrative)* Diagnostic Procedure Only (Routine) - Closed Specialty Diagnoses / Procedures Referred By Contac t Referred To Contact [facility] Diagnoses Encounter for screening mammogram for breast cancer Procedures SUSHIL SCREENING SCREENING MAMMOGRAPHY BI 2-VIEW BREAST INC CAD Mindi Mckay APRN.AFFILIATE MARKETING SPECIALIST [address] [place] [address] [facility] [address] [place] [address] Referral ID Status Reason Start Date Expiration Date V isits Requested Visits Authorized [id number] Closed Auto-Generate d Referral 01/04/2021 02/03/2022 1 1 [facility] for referral (narrative)* Outpatient Procedure (Routine) - Pending Review Specialty Diagnoses / Procedures Referred By Gal trevino Referred To Contact [facility] [place] Diagnoses Medicare annual wellness visit, initial Procedures ECG COMPLETE ECG ROUTINE ECG W/LEAST 12 LDS W/I&R Alicia Hamlin APRN.AFFILIATE MARKETING SPECIALIST [address] [place] [address] [facility] [place] [address] [place] [address] Referral ID Status Reason Start Date Expiration Date Visits Requested Visits Authorized [id number] Pending Review Auto-Generat ed Referral 08/10/2022 08/10/2023 1 1 [facility] for referral (narrative)* Diagnostic Procedure Only (Routine) - Pending Review Specialty Diagnoses / Procedures Referred By Gal trevino Referred To Contact [facility] Diagnoses Abnormal mammogram Procedures US BREAST LTD RIGHT US BREAST UNI REAL TIME WITH IMAGE LIMITED Mindi Mckay APRN.AFFILIATE MARKETING SPECIALIST [address] [place] [address] [facility] [address] [place] [address] Referral ID Status Reason Start Date Expiration Date Visits Requested Visits Authorized [id number] Pending Review Auto-Generat ed Referral 02/13/2023 03/14/2024 1 1 * Diagnostic Procedure Only (Routine) - Authorized Specialty Diagnoses / Procedures Referred By Contac t Referred To Contact [facility] Diagnoses Abnormal mammogram Procedures SUSHIL DIAGNOSTIC RIGHT DIAGNOSTIC MAMMOGRAPHY COMPUTER-AIDED DETCJ UNI Mindi Mckay APRN.AFFILIATE MARKETING SPECIALIST [address] [place] [address] [facility] [address] [place] [address] Referral ID Status Reason Start Date Expiration Date Visits Requested Visits Authorized [id number] Authorized Auto-Generat ed Referral 02/13/2023 03/14/2024 1 1 [facility] for referral (narrative)* Diagnostic Procedure Only (Routine) - Closed Specialty Diagnoses / Procedures Referred By Gal t Referred To Contact [facility] Diagnoses Encounter for screening mammogram for breast cancer Procedures SUSHIL SCREENING SCREENING MAMMOGRAPHY BI 2-VIEW BREAST INC CAD Mindi Mckay APRN.AFFILIATE MARKETING SPECIALIST [address] [place] [address] [facility] [address] [place] [address] Referral ID Status Reason Start Date Expiration Date V isits Requested Visits Authorized [id number] Closed Auto-Generate d Referral 01/13/2022 02/12/2023 1 1 [facility] for referral (narrative)* Diagnostic Procedure Only (Routine) - Closed Specialty Diagnoses / Procedures Referred By Contac t Referred To Contact [facility] Diagnoses Abnormal mammogram Procedures US BREAST LTD RIGHT US BREAST UNI REAL TIME WITH IMAGE LIMITED Mindi Mckay APRN.AFFILIATE MARKETING SPECIALIST [address] [place] [address] [facility] [address] [place] [address] Referral ID Status Reason Start Date Expiration Date V isits Requested Visits Authorized [id number] Closed Auto-Generate d Referral 02/13/2023 03/14/2024 1 1 [facility] for visit Narrative* Diagnostic Procedure Only (Routine) - Closed Specialty Diagnoses / Procedures Referred By Gal t Referred To Contact [facility] Diagnoses Encounter for screening mammogram for breast cancer Procedures SUSHIL SCREENING SCREENING MAMMOGRAPHY BI 2-VIEW BREAST INC [facility] NelyMindi APRN.AFFILIATE MARKETING SPECIALIST [address] [place] [address] [facility] [address] [place] [address] Referral ID Status Reason Start Date Expiration Date V isits Requested Visits Authorized [id number] Closed Auto-Generate d Referral 01/04/2021 02/03/2022 1 1 [facility] for visit Narrative* Diagnostic Procedure Only (Routine) - Closed Specialty Diagnoses / Procedures Referred By Gal trevino Referred To Contact [facility] Diagnoses Encounter for screening mammogram for breast cancer Procedures SUSHIL SCREENING SCREENING MAMMOGRAPHY BI 2-VIEW BREAST INC [facility] [place] HardwickMindi APRN.AFFILIATE MARKETING SPECIALIST [address] [place] [address] [facility] [address] [place] [address] Referral ID Status Reason Start Date Expiration Date V isits Requested Visits Authorized [id number] Closed Auto-Generate d Referral 01/13/2022 02/12/2023 1 1 [facility] for visit Narrative* Diagnostic Procedure Only (Routine) - Closed Specialty Diagnoses / Procedures Referred By Gal trevino Referred To Contact [facility] Diagnoses Abnormal mammogram Procedures SUSHIL DIAGNOSTIC RIGHT DIAGNOSTIC MAMMOGRAPHY COMPUTER-AIDED [facility]CJ [facility] Mindi Mckay APRN.AFFILIATE MARKETING SPECIALIST [address] [place] [address] [facility] [address] [place] [address] Referral ID Status Reason Start Date Expiration Date V isits Requested Visits Authorized [id number] Closed Auto-Generate d Referral 02/13/2023 03/14/2024 1 1 [facility] Summary Purpose Family History No [...] or prosecute any alcohol or drug abuse patient.[facility] Center[facility] the event this information is protected by the Federal Confidentiality of Alcohol and Drug Abuse Patient Records regulations: The Federal rules restrict any use of the information to criminally investigate or prosecute any alcohol or drug abuse patient.[facility] CenterIn the event this information is protected by the Federal Confidentiality of Alcohol and Drug Abuse Patient Records regulations: The Federal rules restrict any use of the information to criminally investigate or prosecute any alcohol or drug abuse patient.[facility] CenterIn the event this information is protected by the Federal Confidentiality of Alcohol and Drug Abuse Patient Records regulations: The Federal rules restrict any use of the information to criminally investigate or prosecute any alcohol or drug abuse patient.[facility] CenterIn the event this information is protected by the Federal Confidentiality of Alcohol and Drug Abuse Patient Records regulations: The Federal rules restrict any use of the information to criminally investigate or prosecute any alcohol or drug abuse patient.[facility] CenterIn the event this information is protected by the Federal Confidentiality of Alcohol and Drug Abuse Patient Records regulations: The Federal rules restrict any use of the information to criminally investigate or prosecute any alcohol or drug abuse patient.[facility] CenterIn the event this information is protected by the Federal Confidentiality of Alcohol and Drug Abuse Patient Records regulations: The Federal rules restrict any use of the information to criminally investigate or prosecute any alcohol or drug abuse patient.[facility] CenterIn the event this information is protected by the Federal Confidentiality of Alcohol and Drug Abuse Patient Records regulations: The Federal rules restrict any use of the information to criminally investigate or prosecute any alcohol or drug abuse patient.[facility] CenterIn the event this information is protected by the Federal Confidentiality of Alcohol and Drug Abuse Patient Records regulations: The Federal rules restrict any use of the information to criminally investigate or prosecute any alcohol or drug abuse patient.[facility] CenterIn the event this information is protected by the Federal Confidentiality of Alcohol and Drug Abuse Patient Records regulations: The Federal rules restrict any use of the information to criminally investigate or prosecute any alcohol or drug abuse patient.[facility] CenterIn the event this information is protected by the Federal Confidentiality of Alcohol and Drug Abuse Patient Records regulations: The Federal rules restrict any use of the information to criminally investigate or prosecute any alcohol or drug abuse patient.[facility] CenterIn the event this information is protected by the Federal Confidentiality of Alcohol and Drug Abuse Patient Records regulations: The Federal rules restrict any use of the information to criminally investigate or prosecute any alcohol or drug abuse patient.[facility] CenterIn the event this information is protected by the Federal Confidentiality of Alcohol and Drug Abuse Patient Records regulations: The Federal rules restrict any use of the information to criminally investigate or prosecute any alcohol or drug abuse patient.[facility] CenterIn the event this information is protected by the Federal Confidentiality of Alcohol and Drug Abuse Patient Records regulations: The Federal rules restrict any use of the information to criminally investigate or prosecute any alcohol or drug abuse patient.[facility] CenterIn the event this information is protected by the Federal Confidentiality of Alcohol and Drug Abuse Patient Records regulations: The Federal rules restrict any use of the information to criminally investigate or prosecute any alcohol or drug abuse patient.[facility] CenterIn the event this information is protected by the Federal Confidentiality of Alcohol and Drug Abuse Patient Records regulations: The Federal rules restrict any use of the information to criminally investigate or prosecute any alcohol or drug abuse patient.[facility] CenterIn the event this information is protected by the Federal Confidentiality of Alcohol and Drug Abuse Patient Records regulations: The Federal rules restrict any use of the information to criminally investigate or prosecute any alcohol or drug abuse patient.[facility] CenterIn the event this information is protected by the Federal Confidentiality of Alcohol and Drug Abuse Patient Records regulations: The Federal rules restrict any use of the information to criminally investigate or prosecute any alcohol or drug abuse patient.[facility] CenterIn the event this information is protected by the Federal Confidentiality of Alcohol and Drug Abuse Patient Records regulations: The Federal rules restrict any use of the information to criminally investigate or prosecute any alcohol or drug abuse patient.[facility] CenterIn the event this information is protected by the Federal Confidentiality of Alcohol and Drug Abuse Patient Records regulations: The Federal rules restrict any use of the information to criminally investigate or prosecute any alcohol or drug abuse patient.[facility] CenterIn the event this information is protected by the Federal Confidentiality of Alcohol and Drug Abuse Patient Records regulations: The Federal rules restrict any use of the information to criminally investigate or prosecute any alcohol or drug abuse patient.[facility] CenterIn the event this information is protected by the Federal Confidentiality of Alcohol and Drug Abuse Patient Records regulations: The Federal rules restrict any use of the information to criminally investigate or prosecute any alcohol or drug abuse patient.[facility] CenterIn the event this information is protected by the Federal Confidentiality of Alcohol and Drug Abuse Patient Records regulations: The Federal rules restrict any use of the information to criminally investigate or prosecute any alcohol or drug abuse patient.[facility] CenterIn the event this information is protected by the Federal Confidentiality of Alcohol and Drug Abuse Patient Records regulations: The Federal rules restrict any use of the information to criminally investigate or prosecute any alcohol or drug abuse patient.[facility] Reason for Visit (unrecogniz ed [...] x 8 days cough Reason Comments Outside [id number] Ordered Reason Comments Radiology US Specialty Diagnoses / Procedures Referred By Contac t Referred To Contact [facility] Diagnoses Abnormal mammogram Procedures US BREAST LTD RIGHT US BREAST UNI REAL TIME WITH IMAGE LIMITED Mindi Mckay, MARQUISE.AFFILIATE MARKETING SPECIALIST [address] [place] [address] [facility] [address] [place] [address] Referral ID Status Reason Start Date Expiration Date V isits Requested Visits Authorized [id number] Closed Auto-Generate d Referral 02/13/2023 03/14/2024 1 1 Care Teams (unrecognized sec tion and content) Line Maintenance Relationship Specialty Start Date End Date Fortino Briones MD [address] [place] [address] PCP - General Family Practice 11/10/14 Line Maintenance Relationship Specialty Start Date End Date Fortino Briones MD [address] [place], [place] [id number] PCP - General Family Practice 11/10/14 Line Maintenance Relationship Specialty Start Date End Date Fortino Briones MD [address] [facility] [place] [address] PCP - General Family Practice 11/10/14 Line Maintenance Relationship Specialty Start Date End Date Fortino Briones MD [address] [facility] [place] [address] PCP - General Family Practice 11/10/14 Line Maintenance Relationship Specialty Start Date End Date Fortino Briones MD [facility] [place] [address] PCP - General Family Medicine 11/10/14 Line Maintenance Relationship Specialty Start Date End Date Fortino Briones MD [facility] [place] [address] PCP - General Family Medicine 11/10/14 07/10/22 Line Maintenance Relationship Specialty Start Date End Date Fortino Briones MD [facility] [place] [address] PCP - General Family Medicine 07/12/22 Line Maintenance Relationship Specialty Start Date End Date Fortino Briones MD [facility] [place] [address] PCP - General Family Medicine 07/12/22 Line Maintenance Relationship Specialty Start Date End Date Fortino Briones MD [facility] [place] [address] PCP - General Family Medicine 07/12/22 Line Maintenance Relationship Specialty Start Date End Date Fortino Briones MD [facility] [place] [address] PCP - General Family Medicine 07/12/22 Line Maintenance Relationship Specialty Start Date End Date Fortino Briones MD [facility] [place] [address] PCP - General Family Medicine 07/12/22 Line Maintenance Relationship Specialty Start Date End Date Fortino Briones MD [address] [place] [address] PCP - General Family Medicine 07/12/22 Line Maintenance Relationship Specialty Start Date End Date Fortino Briones MD [address] [place] [address] PCP - General Family Medicine 07/12/22 Line Maintenance Relationship Specialty Start Date End Date Fortino Briones MD [address] [place] [address] PCP - General Family Medicine 07/12/22 Line Maintenance Relationship Specialty Start Date End Date Fortino Briones MD [address] [place] [address] PCP - General Family Medicine 07/12/22 Line Maintenance Relationship Specialty Start Date End Date Fortino Briones MD [address] [place] [address] PCP - General Family Medicine 07/12/22 Line Maintenance Relationship Specialty Start Date End Date Fortino Briones MD [address] [place] [address] PCP - General Family Medicine 07/12/22 Line Maintenance Relationship Specialty Start Date End Date Fortino Briones MD [address] [place] [address] PCP - General Family Medicine 07/12/22 Line Maintenance Relationship Specialty Start Date End Date Fortino Briones MD [address] [place] [address] PCP - General Family Medicine 07/12/22 INFORMATION [...] THE PRIMARY CLINICAL RECORDS. [facility] [employer] [facility]. provides no warranty or guarantee of the accuracy or completeness of information in this document.
--- NOTE | 2023-05-25 04:15 | VDLE_ITS ---
Reason For Study: Elevated D-dimer: 2.40 RIGHT LEFT GSV is normal. GSV is normal. CFV is compressible, spontaneous, phasic, CFV is compressible, spontaneous, phasic, competent and demonstrates normal competent, and demonstrates normal augmentation. augmentation. FV is compressible, spontaneous, phasic, FV is compressible, spontaneous, phasic, competent and demonstrates normal competent and demonstrates normal augmentation. augmentation. POP V is compressible, spontaneous, phasic, POP V is compressible, spontaneous, phasic, competent and demonstrates normal competent and demonstrates normal augmentation. augmentation. T/P Trunk is compressible. T/P Trunk is compressible. PTV is compressible. PTV is compressible. RT PerV is compressible. LT PerV is compressible. Procedure This is a venous duplex using B-mode, color flow and spectral Doppler. Exam performed portable in patient room. A preliminary report was called and/or faxed to Haley SANCHEZ. VL/Venous Duplex US - Adria Extrem Interpretation Summary Deep veins of the bilateral lower extremities are patent and compressible segme ntally. There is no evidence of bilateral lower extremity deep vein thrombosis. The bilateral great saphenous veins appear patent and compressible segmentally. Ordering Physician: Darius Garcia Referring Physician: Vinny Mancilla Performed By: Lou Garibay RVT
[2023-05-25] MEDS: KCL 40mEq in 0.9% NS 40 MEQ/1,000 ML IV.SOLN 125 MEQ IV ×2 (06:12→14:08)
[2023-05-25] MEDS: Potassium Chloride Oral Tablet 20 MEQ 60 MEQ PO (06:12)
[2023-05-25] MEDS: Enoxaparin 80 MG/0.8 ML Syringe 65 MG SC (06:12)
[2023-05-25 09:28] LABS: M R Staph aureus DNA By PCR Negative (Negative); Probe Check PASS; Specimen Processing Control PASS
[2023-05-25] MEDS: Acetaminophen 325 MG Tablet 650 MG PO ×2 (09:35→18:20)
[2023-05-25] MEDS: Hydroxychloroquine 200 MG Tablet PO (09:36)
[2023-05-25] MEDS: Calcium Carb/Vitamin D 1 TABLET Tablet PO ×2 (09:36→16:31)
[2023-05-25] MEDS: guaiFENesin 1,200 MG Tablet 1200 MG PO ×2 (09:36→21:02)
[2023-05-25] MEDS: Pantoprazole Sodium 20 MG Tablet PO (09:36)
[2023-05-25] MEDS: Montelukast 10 MG Tablet PO (09:36)
[2023-05-25] MEDS: Fluticasone 0.05% 1 SPRAY NASAL.SRY 2 SPRAY NASAL (09:36)
--- NOTE | 2023-05-25 10:25 | CASEMGMT ---
RN?CM?SENIOR LINUX SYSTEMS ADMINISTRATOR?CM?to room to meet with patient for initial transition planning/care coordination?assessment.?RN?CM?introduced self and role at [facility].? Pt voices understanding and consents to?assessment?at this time.? Pt resting in bed in no distress at this time.? Pt is A/O at this time and answers all questions appropriately.?? Care providers, pharmacy, and demographics verified/updated at this time. PCP: Dr Mancilla Specialists: Dr Raygoza-nephrology, Dr Lindquist-ENT. Pt goes to [facility] for arthritis and Sjogren's disease. Preferred Pharmacy: [facility] [place] Insurance: MCR, MMO Prescription Benefit:?yes Living Will/HPOA:?Pt does not currently have LW/HCPOA and declines info at this time.? Pt made aware that she can contact as an out-pt and make appt in the future if she decides she would like to talk with someone about this or would like to utilize [facility] social work for advanced directive completion. LNOK: Daughter, Shameka. Son, Ryley. Sister, Siri. Living Arrangements: Lives alone in 2-story home w/basement and 4 steps to enter. Bedroom and bathroom are on the 2nd floor. There is no bathroom on the main floor. Pt states does well w/stairs. She is independent w/ADL's and IADL's, and manages her own medications and appts. Transportation:?Pt states drives self and states no transportation concerns at this time.? Son will take her home @ discharge. DME: ? Denies using any DME. No home O2 and does not have a pulse ox. Pulse ox recommended by RN CM and pt states she can afford to purchase one. Discussed Home O2 set-up, should she qualify for O2 @ discharge. Questions answered. Pt denies having preference of DME co, made aware [employer] is affiliated w/[facility], and states to use [employer]. HHC/ SNF: No hx of either. Denies needs and no needs identified. Pt wishes to return home and states has no concerns with going home at time of discharge.?CM?to follow for home oxygen needs and any further discharge planning/needs.? Pt voices no further concerns/needs at this time.? Advised pt to ask for?CM?if any further questions/concerns/needs arise.? Voices understanding. PLAN:??Home Follow for possible Home O2. Green sheet on chart w/instructions for home O2 set up, if pt qualifies. Tatiana BSN?RN?CM
--- NOTE | 2023-05-25 10:32 | PCM.PN.HOSP ---
Reason for Visit Reason for Visit: Diagnoses Pneumonia, unspecified organism (05/25/23) Acute kidney failure, unspecified (05/25/23) Other specified disorders of kidney and ureter (05/25/23) Hypoxemia (05/25/23) Objective Data Objective Data Vital Signs: Vital Signs Temp Pulse Resp BP Pulse Ox O2 Del Method O2 Flow Rate 98.5 F 98 20 H 94/56 L 96 Nasal Cannula 2 05/25/23 09:20 05/25/23 09:20 05/25/23 09:20 05/25/23 09:20 05/25/23 09:20 05/25/23 09:20 05/25/23 09:20 Oxygen Flow Rate (L/min) 2 Oxygen Delivery Method Nasal Cannula Weight: 140 lb 3.424 oz Body Mass Index (BMI) 22.5 Intake & Output: Intake and Output for Last 24 Hours 05/23/23 05/24/23 05/25/23 23:59 23:59 23:59 Intake Total 1305 / 1305 Balance 1305 / 1305 Lab / Micro Data 05/24/23 20:41 05/24/23 20:41 Labs: Laboratory Results - last 24 hr 05/24/23 20:41: WBC 13.0 H, RBC 3.99 L, Hgb 11.5 L, Hct 34.3 L, MCV 86.0, MCH 28.8, MCHC 33.5, RDW Std Deviation 44.2 H, RDW Coeff of Casey 14.1, Plt Count 234, MPV 10.2, Immature Gran % (Auto) PROFILE MILL OPERATOR TAPE CONTROL, Neut % (Auto) PROFILE MILL OPERATOR TAPE CONTROL, Lymph % (Auto) PROFILE MILL OPERATOR TAPE CONTROL, [place] % (Auto) PROFILE MILL OPERATOR TAPE CONTROL, Eos % (Auto) PROFILE MILL OPERATOR TAPE CONTROL, Baso % (Auto) PROFILE MILL OPERATOR TAPE CONTROL, Absolute Neuts (auto) 10.4 H, Absolute Lymphs (auto) 0.78 L, Neutrophils % (Manual) 70, Band Neutrophils % 10 H, Lymphocytes % (Manual) 6 L, Monocytes % (Manual) 14 H, Nucleated RBC % PROFILE MILL OPERATOR TAPE CONTROL, Diff Path Review October foll, D-Dimer Quant (PE/DVT) 2.40 H*, Sodium 128 L, Potassium 3.0 L, Chloride 98, Carbon Dioxide 22.0, Anion Gap 8, BUN 23 H, Creatinine 1.95 H, Estim Creat Clear Calc 25.49, Est GFR (MDRD) Af Amer 33 L, Est GFR (MDRD) Non-Af 27 L, BUN/Creatinine Ratio 11.8, Glucose 108 H, Calcium 8.8, Troponin I High Sens 25 05/24/23 23:43: Lactic Acid 1.4 05/25/23 05:50: MRSA (PCR) Negative Micro: Microbiology 05/24/23 22:45 Mucosa - Nasopharyngeal Respiratory Panel (PCR) - Final Influenza A (Subtype H1) 05/24/23 22:45 Mucosa - Nasopharyngeal Rapid RSV (DFA) - Final 05/24/23 20:08 Nasal Secretion SARS-CoV-2 Antigen (Rapid) - Final Radiography Diagnostic Testing: Radiology Impression Chest X-Ray 05/24/23 20:14 IMPRESSION: Mild basilar infiltrate/atelectasis bilaterally, left more than right. Electronically Signed: Xander Fraire DO at 20:31 EST , Chest CTA 05/24/23 23:59 IMPRESSION: 1. Findings of extensive bilateral lower lobe pneumonia, with lesser pneumonia in the upper lobes and right middle lobe. 2. Negative for PE. 3. Mild hilar or mediastinal adenopathy. 4. 2.2 solid mass of the right renal upper pole, most likely a small renal cell carcinoma. Urology follow-up suggested. 5. 1 cm lucent lesion within the T11 vertebral body, not definitely a benign cavernous hemangioma and correlation with bone scan or MR may be of benefit to evaluate for metastatic disease 6. Peribronchial cuffing indicating bronchial wall inflammation. Mild bilateral bronchiectasis. Nonstandard communication protocol initiated. Electronically Signed: Sandeep Lopez MD at 2:33 EST , ADDENDUM: 05/25/23 0242 IMPRESSION: 1. Findings of extensive bilateral lower lobe pneumonia, with lesser pneumonia in the upper lobes and right middle lobe. 2. Negative for PE. 3. Mild hilar or mediastinal adenopathy. 4. 2.2 solid mass of the right renal upper pole, most likely a small renal cell carcinoma. Urology follow-up suggested. 5. 1 cm lucent lesion within the T11 vertebral body, not definitely a benign cavernous hemangioma and correlation with bone scan or MR may be of benefit to evaluate for metastatic disease 6. Peribronchial cuffing indicating bronchial wall inflammation. Mild bilateral bronchiectasis. Nonstandard communication protocol initiated. N.B. : The above Results were Read Back by Sandeep Lopez MD to Steve Woods MD, and understanding confirmed on 05/25/2023 02:35:39 (ET). Electronically Signed: Sandeep Lopez MD at 2:33 EST , Physical Exam Narrative Seen and examined. Patient denies prior history of smoking in any form. No nicotine use. Denies chronic lung disease. She is short of breath on 2 L of oxygen. Although she is hoping for discharge but she is too short of breath to be discharged Denies chest pain or pressure Physical exam General: Alert, Oriented x3, Cooperative HEENT: Atraumatic, PERRLA, EOMI, Normocephalic Oral: No Gingival or Mucosal Lesions/ Ulcerations Neck: Supple, No JVD, Negative Carotid Bruits Lungs: Air entry diminished in bilateral lung bases. Bilateral expiratory rhonchi and coarse crepitations. Hypoxia. Dyspnea at rest and on exertion Cardiovascular: Regular rate, Regular Rhythm, Normal S1, Normal S2, No murmurs Abdomen: Bowel Sounds Present, Soft, Non Tender, Non-Distended : No renal angle tenderness. No suprapubic tenderness. Extremities: No edema, Capillary Refill Less than 3 Seconds Skin: No rashes, No breakdown Musculoskeletal: No Tenderness to Palpation of Joints or Extremities Neurological: Cranial nerves II-XII grossly intact, DTR 2+/4. No acute focal neurological deficit. Psych/Mental Status: Normal Affect, Appropriate. Assessment & Plan Assessment/Plan (1) Right renal mass: (2) Pneumonia: QUALIFIERS: Laterality: bilateral Lung location: lower lobe of lung Pneumonia type: due to unspecified organism Qualified Code(s): J18.9 - Pneumonia, unspecified organism (3) Hypoxia: (4) GABRIELLE (acute kidney injury): PLAN: Plan 68-year-old female came to ED for shortness of breath progressively worsening for 5 days worse with any kind of exertion. She has difficulty walking because of shortness of breath. She also has cough but no sputum production. 1. Complicated bilateral pneumonia more likely due to influenza A pneumonia with bacterial superinfection, confirmed on CT: Admit to general medical floor. CBC shows leukocytosis of 13, present on admission with neutrophilia and lymphopenia and bandemia. Urinary antigen is positive for progress and respiratory panel positive for influenza A, H1 type. Tamiflu added. Continue IV ceftriaxone and Zithromax. Lactic acid normal. MRSA PCR negative. 2. ~2.2 cm mass of the Right upper renal pole; incidentally noted and newly diagnosed with a ~1 cm lucent lesion within the T11 vertebral body also suspicious for possible metastatic disease in the setting of a strong positive family history of breast, colon and skin cancer in her mother and colon cancer in her sister: Initially, Dr. Dorsey was consulted but she states she did not see renal tumor patient therefore Dr. Longoria was consulted. He saw the patient. Currently patient creatinine is elevated BUN 23/creatinine 1.95 therefore not candidate for further contrast today. He would like to see the patient in office and then we will need outpatient workup probably MRI. Oncologist was also consulted. Carlotta saw the patient and states she will need to follow-up in the oncology office. 3. GABRIELLE on CKD stage IIIb: Patient baseline creatinine runs around 1.35-1.5. Admitted with creatinine 1.95. BUN 33. Avoid nephrotoxic agents. Patient had 1 L normal saline bolus in ED and then normal saline +40 mEq of KCl at 125 mill per hour, decreased to 100 mill per hour for 1 more liter. Will reevaluate after that. Monitor kidney function. 4. Critically elevated d-dimer of 2.4 present on admission - CTA of chest negative for PE. Venous duplex negative for bilateral DVT. Lovenox 30 mg subcu daily adjusted to creatinine clearance. 5. Hypokalemia of 3 mmol/L present on admission -as mentioned above. On IV fluid. 6. Hyponatremia of 128 mmol/L present on admission adding to the pathology - Give NS IVF and then recheck BMP in the AM to document response to treatment. 7. History of Sjogren's syndrome; on hydroxychloroquine - Her connective tissue disease is apparently well-controlled at this time. Continue hydroxychloroquine as previous. 8. Essential hypertension - Give IV hydralazine as needed for systolic blood pressure greater than 160 mmHg. Avoid potentially nephrotoxic agents. 9. Hyperlipidemia - Check lipid profile this admission. 10. GERD - Continue PPI. 11. Osteoarthritis - Stable. Give Tylenol as needed as outlined above. 12. History of cholecystectomy - Noted. 12. History of colonoscopy - Noted. 13. Remote history of ectopic ; status post tubal ligation - Noted. 14. DVT prophylaxis - Patient started on full dose Lovenox until DVT is ruled out on lower extremity Doppler to be done in the a.m. Avoid SCD's with elevated D-dimer suggesting there may be a clot present. Total time of the visit including total time spent in counseling or coordination of care, (more than 50% of the total time, spent in obtaining medical information from nurses and other ancillary care providers,explaining to the patient about labs, imaging, diagnosis and management of active complex medical conditions), discussion with urologist and oncologist, and management of renal mass complex bilateral pneumonia, review of labs and imaging is 40 minutes. Laboratory Results 05/24/23 20:41: WBC 13.0 H, RBC 3.99 L, Hgb 11.5 L, Hct 34.3 L, MCV 86.0, MCH 28.8, MCHC 33.5, RDW Std Deviation 44.2 H, RDW Coeff of Casey 14.1, Plt Count 234, MPV 10.2, Immature Gran % (Auto) PROFILE MILL OPERATOR TAPE CONTROL, Neut % (Auto) PROFILE MILL OPERATOR TAPE CONTROL, Lymph % (Auto) PROFILE MILL OPERATOR TAPE CONTROL, [place] % (Auto) PROFILE MILL OPERATOR TAPE CONTROL, Eos % (Auto) PROFILE MILL OPERATOR TAPE CONTROL, Baso % (Auto) PROFILE MILL OPERATOR TAPE CONTROL, Absolute Neuts (auto) 10.4 H, Absolute Lymphs (auto) 0.78 L, Neutrophils % (Manual) 70, Band Neutrophils % 10 H, Lymphocytes % (Manual) 6 L, Monocytes % (Manual) 14 H, Nucleated RBC % PROFILE MILL OPERATOR TAPE CONTROL, Diff Path Review Reviewed, D-Dimer Quant (PE/DVT) 2.40 H*, Sodium 128 L, Potassium 3.0 L, Chloride 98, Carbon Dioxide 22.0, Anion Gap 8, BUN 23 H, Creatinine 1.95 H, Estim Creat Clear Calc 25.49, Est GFR (MDRD) Af Amer 33 L, Est GFR (MDRD) Non-Af 27 L, BUN/Creatinine Ratio 11.8, Glucose 108 H, Calcium 8.8, Troponin I High Sens 25 05/24/23 23:43: Lactic Acid 1.4 05/25/23 05:50: MRSA (PCR) Negative 05/25/23 14:37: Total Bilirubin 0.30, Direct Bilirubin 0.12, AST 45 H, ALT 32, Alkaline Phosphatase 54, Lactate Dehydrogenase 246, Total Protein 6.9, Albumin 2.1 L, Globulin 4.8 H Microbiology Past 72 Hours 05/25/23 09:15 Sputum, Expectorated/Coughed Gram Stain - Final 05/25/23 11:30 Urine, Clean Catch Legionella Antigen - Final 05/25/23 11:30 Urine, Clean Catch Streptococcus pneumoniae Antigen (M - Final Streptococcus pneumonia Ag 05/24/23 22:45 Mucosa - Nasopharyngeal Respiratory Panel (PCR) - Final Influenza A (Subtype H1) 05/24/23 22:45 Mucosa - Nasopharyngeal Rapid RSV (DFA) - Final 05/24/23 20:08 Nasal Secretion SARS-CoV-2 Antigen (Rapid) - Final Charges/Coding Visit Charges Inpatient E&M: 34800 Subs Hosp L3
--- NOTE | 2023-05-25 12:31 | CON.PCM.ON_ITS ---
Assessment & Plan Assessment/Plan (1) Right renal mass: Status: Acute Code(s): N28.89 - Other specified disorders of kidney and ureter Plan: A 3 cm simple cyst and a 2.2 cm solid nodule involving upper pole of right kidney identified incidentally on CTA chest performed 05/24/23. Obtain dedicated MRI of the abdomen and pelvis and LDH, LFTs and UA. Await urology consultation. (2) Bone lesion: Status: Acute Code(s): M89.9 - Disorder of bone, unspecified Plan: 1 cm lucency involving T11 vertebral body identified incidentally on CTA chest performed 05/24/23. Obtain MRI thoracic spine. Case discussed with Dr. Garner, who was in agreement with the aforementioned plan. Will continue to follow this admission, however if recovery from GABRIELLE and pneumonia allow for discharge, MRI imaging and additional investigations of renal mass and bone lesion, ie bone scan, can be performed in the out patient setting. Follow up with [facility] upon discharge. Patient was provided [facility] contact information. HPI Consult Data Date of Service:: 05/25/23 PCP / Referring Provider: Dr. Vinny Mancilla MD Attending: Dr. Jason Marques MD Chief Complaint Chief Complaint: Renal mass History of Present Illness History of Present Illness: Ms. Arboleda is a 68 year old woman with a PMH significant for Sjorgen's, GERD, HTN, osteoarthritis and hyperlipidemia, who reported to [facility] ED on 05/24/23 with c/o SOB x 5 days. She was found to have neutrophilic leukocytosis, mild anemia (hgb 11.5), GABRIELLE as evidenced by Cr 1.95 (baseline 1.4) with mild to moderate elec trolyte derangements, and elevated D dimer. A CTA chest was performed which demonstrated bilateral lower lobe pneumonia, mild hilar and mediastinal adenopathy, and incidentally noted a 2.2 (?cm) right renal mass involving the upper pole and a 1 cm lucency involving the body of T11. Thus, she was admitted for management of pneumonia and GABRIELLE. Interval History Interval History: Upon entering the room, the patient is sitting upright on the side of the bed. Patient verbalizes her understanding of incidentally discovered renal mass. States she was in her usual state of health until 6 days ago, when she developed cough and SOB. Mammogram and colonoscopy are up to date (screenings were performed at [facility]). Notably she was called back for US and additional views of right breast but was told area is a cyst. Per pt self report, area is not palpable on self exam nor clinical breast exam. Specifically denies uni ntentional weight loss, CP, back pain, changes in her bowel habits, swelling/pain of her extremities, and numbness/tingling. BLE venous dopplers are pending to address elevated D dimer. Has not yet met with urology. Advanced Directives Power of Document Management Analyst: No Living Will: No PFSH Medical History (Updated 05/25/23 @ 13:28 by Carlotta Head OBEDIENCE TRAINER, OBEDIENCE TRAINER-C) Bone lesion GERD (gastroesophageal reflux disease) Hemorrhoid HTN (hypertension) Mixed hyperlipidemia Osteoarthritis Sjogren's disease Home Medications calcium carbonate 600 mg-vitamin D3 20 mcg (800 unit) tablet 1 tab PO BIDCM 03/14/13 [History Last Taken 09/26/17] fluticasone propionate 50 mcg/actuation nasal spray,suspension 2 spray NASAL DAILY 03/14/13 [History Last Taken 09/26/17] omeprazole 20 mg capsule,delayed release 20 mg PO DAILY 03/14/13 [History Last Taken 12/12/18 06:00] montelukast 10 mg tablet 10 mg PO DAILY ALLERGIES 09/23/14 [History Last Taken 09/26/17] cholecalciferol (vitamin D3) 50 mcg (2,000 unit) capsule 2,000 unit PO DAILY 09/20/17 [History Last Taken 09/26/17] hydroxychloroquine 200 mg tablet 200 mg PO DAILY 05/24/23 [History Last Taken Unknown] Allergy/AdvReac Type Severity Reaction Status Date / Time gluten Allergy Food Verified 05/25/23 10:47 Allergy amoxicillin AdvReac Nausea Verified 05/24/23 20:05 doxycycline AdvReac Other Verified 05/24/23 20:05 erythromycin base AdvReac Nausea Verified 05/24/23 20:05 [Erythromycin Base] hydrocodone bitartrate AdvReac Vomiting Verified 05/24/23 20:05 [From Vicodin] Sulfa (Sulfonamide AdvReac Nausea Verified 05/24/23 20:05 Antibiotics) Family History Mother Breast cancer Colon cancer Cancer skin CVA (cerebral vascular accident) Father CHF (congestive heart failure) Sister Colon cancer Surgical History S/P cholecystectomy S/P colonoscopy S/P ectopic S/P tubal ligation Social History Smoking Status: Never smoker ROS ROS Narrative Negative except as documented in the interval HPI Physical Exam Const alert, oriented x3 and average body habitus General Appearance: anxious and ill appearing Positive for acutely; Negative for in distress HEENT normocephalic and head/scalp atraumatic Eyes conjunctivae normal and no scleral icterus Neck no lymphadenopathy and supple Chest Chest Narrative: Breast exam deferred per pt Resp Auscultation: rhonchi throughout and diminished lung sounds Cardio regular rate and regular rhythm GI normal to inspection, nondistended, normoactive bowel sounds, soft to palpation, non-tender and non-distended Back/Spine no CVA tenderness and no thoracic nor lumbar tenderness Extremity normal to inspection, full ROM and no clubbing, cyanosis or edema Neuro oriented x3, CN's II-XII intact bilaterally, moves all extremities and no focal motor deficits Speech: speech normal Motor Exam: strength 5/5 throughout Psych Attitude: engaged Mood & Affect: anxious Attention / Concentration: attention grossly intact and concentration grossly intact Vital Signs Temperature 97.7 F L 05/25/23 11:26 Temperature Source Oral 05/25/23 11:26 Pulse Rate 86 05/25/23 11:26 Respiratory Rate 18 05/25/23 11:26 Respiratory Effort Short of Breath 05/24/23 22:42 Respiratory Pattern Tachypnea 05/25/23 06:45 Blood Pressure 93/58 L 05/25/23 11:26 Blood Pressure Mean 69 05/25/23 11:26 Blood Pressure Source Monitor 05/25/23 11:26 Blood Pressure Position Semi-Fowlers 05/25/23 11:26 Blood Pressure Location Right Arm 05/25/23 11:26 Pulse Ox 96 05/25/23 11:26 Oxygen Delivery Method Nasal Cannula 05/25/23 11:26 Oxygen Flow Rate (L/min) 2 05/25/23 11:26 Laboratory Results - last 24 hr 05/24/23 20:41: WBC 13.0 H, RBC 3.99 L, Hgb 11.5 L, Hct 34.3 L, MCV 86.0, MCH 28.8, MCHC 33.5, RDW Std Deviation 44.2 H, RDW Coeff of Casey 14.1, Plt Count 234, MPV 10.2, Immature Gran % (Auto) OBEDIENCE TRAINER, Neut % (Auto) OBEDIENCE TRAINER, Lymph % (Auto) OBEDIENCE TRAINER, [place] % (Auto) OBEDIENCE TRAINER, Eos % (Auto) OBEDIENCE TRAINER, Baso % (Auto) OBEDIENCE TRAINER, Absolute Neuts (auto) 10.4 H, Absolute Lymphs (auto) 0.78 L, Neutrophils % (Manual) 70, Band Neutrophils % 10 H, Lymphocytes % (Manual) 6 L, Monocytes % (Manual) 14 H, Nucleated RBC % OBEDIENCE TRAINER, Diff Path Review October, D-Dimer Quant (PE/DVT) 2.40 H*, Sodium 128 L, Potassium 3.0 L, Chloride 98, Carbon Dioxide 22.0, Anion Gap 8, BUN 23 H, Creatinine 1.95 H, Estim Creat Clear Calc 25.49, Est GFR (MDRD) Af Amer 33 L, Est GFR (MDRD) Non-Af 27 L, BUN/Creatinine Ratio 11.8, Glucose 108 H, Calcium 8.8, Troponin I High Sens 25 05/24/23 23:43: Lactic Acid 1.4 05/25/23 05:50: MRSA (PCR) Negative Microbiology 05/25/23 11:30 Urine, Clean Catch Legionella Antigen - Final 05/25/23 11:30 Urine, Clean Catch Streptococcus pneumoniae Antigen (M - Final Streptococcus pneumonia Ag 05/24/23 22:45 Mucosa - Nasopharyngeal Respiratory Panel (PCR) - Final Influenza A (Subtype H1) 05/24/23 22:45 Mucosa - Nasopharyngeal Rapid RSV (DFA) - Final 05/24/23 20:08 Nasal Secretion SARS-CoV-2 Antigen (Rapid) - Final Diagnostic Data Chest X-Ray 05/24/23 20:14 IMPRESSION: Mild basilar infiltrate/atelectasis bilaterally, left more than right. Electronically Signed: Xander Fraire DO at 20:31 EST Reading Location ID and State: [facility] / [place] Tel [phone], Service support , Chest CTA 05/24/23 23:59 IMPRESSION: 1. Findings of extensive bilateral lower lobe pneumonia, with lesser pneumonia in the upper lobes and right middle lobe. 2. Negative for PE. 3. Mild hilar or mediastinal adenopathy. 4. 2.2 solid mass of the right renal upper pole, most likely a small renal cell carcinoma. Urology follow-up suggested. 5. 1 cm lucent lesion within the T11 vertebral body, not definitely a benign cavernous hemangioma and correlation with bone scan or MR may be of benefit to evaluate for metastatic disease 6. Peribronchial cuffing indicating bronchial wall inflammation. Mild bilateral bronchiectasis. Nonstandard communication protocol initiated. Electronically Signed: Sandeep Lopez MD at 2:33 EST , ADDENDUM: 05/25/23 0242 IMPRESSION: 1. Findings of extensive bilateral lower lobe pneumonia, with lesser pneumonia in the upper lobes and right middle lobe. 2. Negative for PE. 3. Mild hilar or mediastinal adenopathy. 4. 2.2 solid mass of the right renal upper pole, most likely a small renal cell carcinoma. Urology follow-up suggested. 5. 1 cm lucent lesion within the T11 vertebral body, not definitely a benign cavernous hemangioma and correlation with bone scan or MR may be of benefit to evaluate for metastatic disease 6. Peribronchial cuffing indicating bronchial wall inflammation. Mild bilateral bronchiectasis. Nonstandard communication protocol initiated. N.B. : The above Results were Read Back by Sandeep Lopez MD to Steve Woods MD, and understanding confirmed on 05/25/2023 02:35:39 (ET). Electronically Signed: Sandeep Lopez MD at 2:33 EST ,
[2023-05-25 13:18] LABS: Pathologist Review Reviewed
--- NOTE | 2023-05-25 14:26 | PCM.CONS.U ---
HPI Consult Data Date of Consult: 05/25/23 HPI Narrative Reason for Consultation: Right renal mass HPI Narrative: NETO CARDOZO, is a 68 F who was admitted to the hospital with pneumonia she had a CT scan with contrast of the chest demonstrated consolidation pneumonia bilaterally and also demonstrated what could be a mass in the right kidney, the CT scan did not get to the entire kidney. I went spoke to the patient let her know about the abnormal finding on the right kidney recommended that we do outpatient follow-up I want to see her back in the office and at that point we will probably recheck her creatinine probably just do an MRI of the kidney to avoid contrast and we could either watch the mass or surgical intervention by think I want to see her first in the office and then order the MRI of the kidney. At this point she is still recovering from her pneumonia and no urgent intervention is necessary call me with questions and she can follow-up as an outpatient [facility] Medical History (Updated 05/25/23 @ 13:28 by Carlotta Head ELECTRONICS INSPECTOR, ELECTRONICS INSPECTOR-C) Bone lesion GERD (gastroesophageal reflux disease) Hemorrhoid HTN (hypertension) Mixed hyperlipidemia Osteoarthritis Sjogren's disease Home Medications calcium carbonate 600 mg-vitamin D3 20 mcg (800 unit) tablet 1 tab PO BIDCM 03/14/13 [History Last Taken 09/26/17] fluticasone propionate 50 mcg/actuation nasal spray,suspension 2 spray NASAL DAILY 03/14/13 [History Last Taken 09/26/17] omeprazole 20 mg capsule,delayed release 20 mg PO DAILY 03/14/13 [History Last Taken 12/12/18 06:00] montelukast 10 mg tablet 10 mg PO DAILY ALLERGIES 09/23/14 [History Last Taken 09/26/17] cholecalciferol (vitamin D3) 50 mcg (2,000 unit) capsule 2,000 unit PO DAILY 09/20/17 [History Last Taken 09/26/17] hydroxychloroquine 200 mg tablet 200 mg PO DAILY 05/24/23 [History Last Taken Unknown] Allergy/AdvReac Type Severity Reaction Status Date / Time gluten Allergy Food Verified 05/25/23 10:47 Allergy amoxicillin AdvReac Nausea Verified 05/24/23 20:05 doxycycline AdvReac Other Verified 05/24/23 20:05 erythromycin base AdvReac Nausea Verified 05/24/23 20:05 [Erythromycin Base] hydrocodone bitartrate AdvReac Vomiting Verified 05/24/23 20:05 [From Vicodin] Sulfa (Sulfonamide AdvReac Nausea Verified 05/24/23 20:05 Antibiotics) Family History Mother Breast cancer Colon cancer Cancer skin CVA (cerebral vascular accident) Father CHF (congestive heart failure) Sister Colon cancer Surgical History S/P cholecystectomy S/P colonoscopy S/P ectopic S/P tubal ligation Social History Smoking Status: Never smoker Medical Records Data Medical Nutrition Assessment Dietitian: Malnutrition Criteria Met Start: 05/25/23 11:05 Freq: Status: Active Protocol: Document 05/25/23 11:05 AG (Rec: 05/25/23 11:05 [id number]) Nutrition Malnutrition Evidence of Malnutrition Exists Yes Malnutrition (severe): Acute Illness/Injury Evidenced By Suboptimal Energy Intake ( Severe),Weight Loss (Severe) Clinical Problem Acute Disease or Injury Related Malnutrition Etiology severe, acute malnutrition related to inadequate energy intake Signs/Symptoms as evidenced by unintentional 4.8#/3.3% wt loss x 1 week, estimated PO intake meeting < 50% of estimated energy needs x 1 week Status Active Problem Recommendation Dietitian Recommendations/Changes will liberalize diet to regular/gluten free and add 120mL ensure plus high protein 4x/day w/ medpass given evidence of acute malnutrition Lab / Micro Data 05/24/23 20:41 05/24/23 20:41 Labs: Laboratory Results - last 24 hr 05/24/23 20:41: WBC 13.0 H, RBC 3.99 L, Hgb 11.5 L, Hct 34.3 L, MCV 86.0, MCH 28.8, MCHC 33.5, RDW Std Deviation 44.2 H, RDW Coeff of [place] 14.1, Plt Count 234, MPV 10.2, Immature Gran % (Auto) ELECTRONICS INSPECTOR, Neut % (Auto) ELECTRONICS INSPECTOR, Lymph % (Auto) ELECTRONICS INSPECTOR, [place] % (Auto) ELECTRONICS INSPECTOR, Eos % (Auto) ELECTRONICS INSPECTOR, Baso % (Auto) ELECTRONICS INSPECTOR, Absolute Neuts (auto) 10.4 H, Absolute Lymphs (auto) 0.78 L, Neutrophils % (Manual) 70, Band Neutrophils % 10 H, Lymphocytes % (Manual) 6 L, Monocytes % (Manual) 14 H, Nucleated RBC % ELECTRONICS INSPECTOR, Diff Path Review Reviewed, D-Dimer Quant (PE/DVT) 2.40 H*, Sodium 128 L, Potassium 3.0 L, Chloride 98, Carbon Dioxide 22.0, Anion Gap 8, BUN 23 H, Creatinine 1.95 H, Estim Creat Clear Calc 25.49, Est GFR (MDRD) Af Amer 33 L, Est GFR (MDRD) Non-Af 27 L, BUN/Creatinine Ratio 11.8, Glucose 108 H, Calcium 8.8, Troponin I High Sens 25 05/24/23 23:43: Lactic Acid 1.4 05/25/23 05:50: MRSA (PCR) Negative Micro: Microbiology 05/25/23 09:15 Sputum, Expectorated/Coughed Gram Stain - Final 05/25/23 11:30 Urine, Clean Catch Legionella Antigen - Final 05/25/23 11:30 Urine, Clean Catch Streptococcus pneumoniae Antigen (M - Final Streptococcus pneumonia Ag 05/24/23 22:45 Mucosa - Nasopharyngeal Respiratory Panel (PCR) - Final Influenza A (Subtype H1) 05/24/23 22:45 Mucosa - Nasopharyngeal Rapid RSV (DFA) - Final 05/24/23 20:08 Nasal Secretion SARS-CoV-2 Antigen (Rapid) - Final Imagaing Radiology Impression Chest X-Ray 05/24/23 20:14 IMPRESSION: Mild basilar infiltrate/atelectasis bilaterally, left more than right. Electronically Signed: Xander Fraire DO at 20:31 EST Reading Location ID and State: [facility] / [place] Tel [phone], Service support , Chest CTA 05/24/23 23:59 IMPRESSION: 1. Findings of extensive bilateral lower lobe pneumonia, with lesser pneumonia in the upper lobes and right middle lobe. 2. Negative for PE. 3. Mild hilar or mediastinal adenopathy. 4. 2.2 solid mass of the right renal upper pole, most likely a small renal cell carcinoma. Urology follow-up suggested. 5. 1 cm lucent lesion within the T11 vertebral body, not definitely a benign cavernous hemangioma and correlation with bone scan or MR may be of benefit to evaluate for metastatic disease 6. Peribronchial cuffing indicating bronchial wall inflammation. Mild bilateral bronchiectasis. Nonstandard communication protocol initiated. Electronically Signed: Sandeep Lopez MD at 2:33 EST , ADDENDUM: 05/25/23 0242 IMPRESSION: 1. Findings of extensive bilateral lower lobe pneumonia, with lesser pneumonia in the upper lobes and right middle lobe. 2. Negative for PE. 3. Mild hilar or mediastinal adenopathy. 4. 2.2 solid mass of the right renal upper pole, most likely a small renal cell carcinoma. Urology follow-up suggested. 5. 1 cm lucent lesion within the T11 vertebral body, not definitely a benign cavernous hemangioma and correlation with bone scan or MR may be of benefit to evaluate for metastatic disease 6. Peribronchial cuffing indicating bronchial wall inflammation. Mild bilateral bronchiectasis. Nonstandard communication protocol initiated. N.B. : The above Results were Read Back by Sandeep Lopez MD to Steve Woods MD, and understanding confirmed on 05/25/2023 02:35:39 (ET). Electronically Signed: Sandeep Lopez MD at 2:33 EST ,
[2023-05-25 15:20] LABS: AST(SGOT) 45 U/L (15-37); Alanine Aminotransfer ALT/SGPT 32 U/L (13-56); Albumin, Serum 2.1 g/dL (3.2-5.0); Alkaline Phosphatase 54 U/L (45-117); Bilirubin, Direct 0.12 mg/dL (0.00-0.30); Globulin 4.8 g/dL (2.2-4.2); LDH 246 U/L (84-246); Protein, Total 6.9 g/dL (6.4-8.2)
[2023-05-25 17:17] LABS: CPK Total, Creatine Kinase 109 U/L (26-192)
[2023-05-25] MEDS: Oseltamivir Phosphate 30 MG Capsule PO (18:21)
[2023-05-25 18:42] LABS: Color, Urine Yellow (Yellow); Glucose, Dipstick Normal (Normal); Ketone-Dipstick Negative (Negative); Leukocyte Esterase-Dipstick Negative /ul (Negative); Nitrite-Dipstick Negative (Negative); Occult Blood-Urine Negative /ul (Negative); Protein-Dipstick 15 mg/dl (Negative); Specific Gravity, Urine 1.005 (1.002-1.030); Urine Bilirubin Dipstick Negative (Negative); Urine Clarity Clear (Clear); Urine Urobilinogen Normal (Normal)
[2023-05-25] MEDS: Ceftriaxone 1 GM/50 ML BAG IV (20:59)
[2023-05-25] MEDS: 0.9% Saline Lock 10 ML Syringe IV (21:02)
[2023-05-25] MEDS: Ipratropium/Albuterol Sulfate 3 ML AMPUL.NEB INHALATION (21:55)
[2023-05-26] VITALS (17 sets, daily range): BP systolic 94–110; BP diastolic 59–64; PULSE 58–110; RESP 16–24; TEMP 36.6–37.1; O2SAT 77–99
[2023-05-26] MEDS: 0.9% Saline Lock 10 ML Syringe IV ×3 (02:07→20:34)
[2023-05-26] MEDS: Ipratropium/Albuterol Sulfate 3 ML AMPUL.NEB INHALATION ×6 (02:40→23:31)
[2023-05-26] MEDS: Acetaminophen 325 MG Tablet 650 MG PO ×3 (03:15→22:35)
--- NOTE | 2023-05-26 05:50 | RAD_ITS ---
STUDY: X-RAY CHEST REASON FOR EXAM: Female, 68 years old. Follow-up of pneumonia. TECHNIQUE: Frontal and lateral views of the chest. COMPARISON: May 24, 2023 FINDINGS: Hyperinflation with increased linear and parenchymal opacities in both bases, left greater than right. Linear atelectasis in the right midlung zone, slightly progressed since the prior study. Small left effusion, relatively unchanged. Stable mild cardiac enlargement. Normal mediastinum and [place]. Normal visualized pulmonary arteries. Aortic tortuosity with calcification unchanged. Normal visualized thoracic spine. Normal visualized ribs, clavicles, and shoulders. No abnormality of the visualized soft tissue structures of the upper abdomen. RAD/Chest PA and Lateral IMPRESSION: Mild cardiomegaly hyperinflation and increased linear interstitial and parenchymal opacities at both bases which may represent worsening of pneumonia or worsening atelectasis. Follow-up chest imaging to resolution recommended. Electronically Signed: Matthew Arevalo MD at 12:51 EST ,
[2023-05-26 07:32] LABS: Absolute Neutrophil Count 10.8 X10^3/uL (2.0-7.7); Basophil# 0.09 X10^3/uL; Basophil% 0.6 % (0-1); Eosinophil# 0.04 X10^3/uL; Eosinophils% 0.3 % (0-5); Hematocrit 31.1 % (37-47); Hemoglobin 10.3 g/dL (12.0-15.0); Lymphocyte % 8.6 % (19-41); Mean Corp Hgb Conc 33.1 g/dL (32-36); Mean Corpuscular Hgb 29.1 pg (27.0-32.0); Mean Corpuscular Volume 87.9 fL (81-99); Mean Platelet Vol. 10.4 fl (6.2-12.0); Monocyte# 1.33 X10^3/uL; Monocyte% 9.5 % (0-10); NRBC Flagged by Analyzer 0 % (0-5); Neutrophil % 77.1 % (47-70); Platelet Count 282 K/mm3 (150-450); RBC Distribution Width CV 14.9 % (11.6-14.6); RBC Distribution Width SD 48.4 fl (35.1-43.9); Red Blood Count 3.54 M/mm3 (4.2-5.4)
[2023-05-26] MEDS: Pantoprazole Sodium 20 MG Tablet PO (07:57)
[2023-05-26] MEDS: guaiFENesin 1,200 MG Tablet 1200 MG PO ×2 (07:57→20:17)
[2023-05-26] MEDS: Hydroxychloroquine 200 MG Tablet PO (07:57)
[2023-05-26] MEDS: Calcium Carb/Vitamin D 1 TABLET Tablet PO ×2 (07:57→16:30)
[2023-05-26] MEDS: Oseltamivir Phosphate 30 MG Capsule PO (07:58)
[2023-05-26 08:00] LABS: Anion Gap 6 (5-15); BUN 13 mg/dL (7-18); BUN/Creat Ratio 12.1 RATIO (10-20); Calcium,Total 8.5 mg/dL (8.5-10.1); Chloride 117 mmol/L (98-107); Creatinine, Serum 1.07 mg/dL (0.55-1.02); EST Glomerular Filtration Rate 54 mL/min (>60); Est Glom Filt Rate - Afr Amer 65 mL/min (>60); Estimated Creatinine Clearance 46.45 ml/min; Glucose 85 mg/dL (74-106); Potassium 3.7 mmol/L (3.5-5.1); Sodium Level 140 mmol/L (136-145)
[2023-05-26] MEDS: Ensure Plus High Protein 120 ML LIQUID PO ×2 (10:37→13:14)
[2023-05-26] MEDS: Montelukast 10 MG Tablet PO (10:37)
[2023-05-26] MEDS: Fluticasone 0.05% 1 SPRAY NASAL.SRY 2 SPRAY NASAL (10:38)
[2023-05-26] MEDS: Enoxaparin 30 MG/0.3 ML Syringe SC (10:41)
--- NOTE | 2023-05-26 12:46 | PN_ITS ---
Subjective Subjective Patient seen and examined. She says she started feeling better today. She is still coughing still feels mildly short of breath but is much better from previous. Review of systems otherwise negative. She has remained hemodynamically stable. Objective Data Objective Data Vital Signs: Vital Signs Temp Pulse Resp BP Pulse Ox O2 Del Method O2 Flow Rate 98.2 F 89 20 H 94/60 95 Nasal Cannula 5 05/26/23 10:30 05/26/23 11:30 05/26/23 11:30 05/26/23 10:30 05/26/23 11:30 05/26/23 11:30 05/26/23 11:30 Oxygen Flow Rate (L/min) 5 Oxygen Delivery Method Nasal Cannula Weight: 140 lb 3.424 oz Body Mass Index (BMI) 22.5 Intake & Output: Intake and Output for Last 24 Hours 05/24/23 05/25/23 05/26/23 23:59 23:59 23:59 Intake Total 4092.50 / 4092.50 755 / 755 Output Total 1200 / 1200 Balance 2892.50 / 2892.50 755 / 755 Medical Nutrition Assessment Dietitian: Malnutrition Criteria Met Start: 05/25/23 11:05 Freq: Status: Active Protocol: Document 05/25/23 11:05 (Rec: 05/25/23 11:05 [id number]) Nutrition Malnutrition Evidence of Malnutrition Exists Yes Malnutrition (severe): Acute Illness/Injury Evidenced By Suboptimal Energy Intake ( Severe),Weight Loss (Severe) Clinical Problem Acute Disease or Injury Related Malnutrition Etiology severe, acute malnutrition related to inadequate energy intake Signs/Symptoms as evidenced by unintentional 4.8#/3.3% wt loss x 1 week, estimated PO intake meeting < 50% of estimated energy needs x 1 week Status Active Problem Recommendation Dietitian Recommendations/Changes will liberalize diet to regular/gluten free and add 120mL ensure plus high protein 4x/day w/ medpass given evidence of acute malnutrition Lab / Micro Data 05/26/23 06:34 05/26/23 06:34 Labs: Laboratory Results - last 24 hr 05/24/23 20:41: Diff Path Review Reviewed 05/25/23 14:37: Total Bilirubin 0.30, Direct Bilirubin 0.12, AST 45 H, ALT 32, Alkaline Phosphatase 54, Lactate Dehydrogenase 246, Total Creatine Kinase 109, Total Protein 6.9, Albumin 2.1 L, Globulin 4.8 H 05/25/23 18:20: Urine Color Yellow, Urine Clarity Clear, Urine pH 7.0, Ur Specific [place] 1.005, Urine Protein 15 H, Urine Glucose (UA) Normal, Urine Ketones Negative, Urine Occult Blood Negative, Urine Nitrite Negative, Urine Bilirubin Negative, Urine Urobilinogen Normal, Ur Leukocyte Esterase Negative 05/26/23 06:34: WBC 14.0 H, RBC 3.54 L, Hgb 10.3 L, Hct 31.1 L, MCV 87.9, MCH 29.1, MCHC 33.1, RDW Std Deviation 48.4 H, RDW Coeff of [place] 14.9 H, Plt Count 282, MPV 10.4, Immature Gran % (Auto) 3.900 H, Neut % (Auto) 77.1 H, Lymph % (Auto) 8.6 L, [place] % (Auto) 9.5, Eos % (Auto) 0.3, Baso % (Auto) 0.6, Absolute Neuts (auto) 10.8 H, Absolute Lymphs (auto) 1.20, Nucleated RBC % 0, Sodium 140, Potassium 3.7, Chloride 117 H, Carbon Dioxide 17.0 L, Anion Gap 6, BUN 13, Creatinine 1.07 H, Estim Creat Clear Calc 46.45, Est GFR (MDRD) Af Amer 65, Est GFR (MDRD) Non-Af 54 L, BUN/Creatinine Ratio 12.1, Glucose 85, Calcium 8.5 Micro: Microbiology 05/25/23 09:15 Sputum, Expectorated/Coughed Gram Stain - Final 05/25/23 11:30 Urine, Clean Catch Legionella Antigen - Final 05/25/23 11:30 Urine, Clean Catch Streptococcus pneumoniae Antigen (M - Final Streptococcus pneumonia Ag 05/24/23 22:45 Mucosa - Nasopharyngeal Respiratory Panel (PCR) - Final Influenza A (Subtype H1) 05/24/23 22:45 Mucosa - Nasopharyngeal Rapid RSV (DFA) - Final 05/24/23 20:08 Nasal Secretion SARS-CoV-2 Antigen (Rapid) - Final Physical Exam Const alert, oriented x3 and no apparent distress General Appearance: cooperative HEENT normocephalic, head/scalp atraumatic, moist oral mucous membranes and oropharynx normal Eyes PERRL and EOMs intact bilaterally Neck no lymphadenopathy and supple Lymph Lymphatic: no lymphadenopathy noted and no lymphedema noted Resp Resp Narrative: mildly diminished breath sounds bibasally, mild wheezes but no crackles. On 5L of oxygen by nasal canula Cardio regular rate, regular rhythm, S1 normal heart sound, S2 normal heart sound and no murmurs GI normal to inspection, nondistended, normoactive bowel sounds, soft to palpation, non-tender and non-distended Extremity normal capillary refill, no clubbing, cyanosis or edema and no calf tenderness General Extremity: no tenderness to palpation of joints or extremities Skin General Skin Exam: no breakdown Neuro CN's II-XII intact bilaterally, no focal motor deficits, no sensory deficits noted and deep tendon reflexes 2+ bilaterally Motor Exam: strength 5/5 throughout and general weakness Psych thought process normal and cooperative Appearance: appropriate Assessment & Plan Assessment/Plan (1) Pneumonia: QUALIFIERS: Pneumonia type: due to unspecified organism Laterality: bilateral Lung location: lower lobe of lung Qualified Code(s): J1 8.9 - Pneumonia, unspecified organism (2) Hypoxia: (3) Right renal mass: PLAN: Plan #Acute hypoxia due to bilateral pneumonia and influenza infection * CT chest showed bilateral pneumonia. * On IV ceftriaxone and azithromycin. Breathing treatments bronchodilators. * Titrate oxygen to maintain saturation above 90%. * Urine for strep and Legionella negative. Sputum cultures pending. Blood cultures also pending. * on amiflu for Influenza A. * #Recently diagnosed with right upper pole renal mass * Imaging done also showed a 1 cm lesion encasing within the T11 vertebral body concerning for possible metastasis in the setting of probable renal carcinoma. She does have a strong family history of breast, colon and skin cancer in her family. * Urology on board. Will benefit from MRI of the abdomen to better characterize the lesion. * MRI of the abdomen ordered. Oncology also on board. * #GABRIELLE:resolved. Cr is down to 1.07 #Elevated D-dimer: CTA of the chest was negative for any evidence of PE. Duplex of the lower extremities also negative #Hypokalemia: Will replace and trend #Hyponatremia: Resolved. #History of Sjogren syndrome: On hydroxychloroquine #Benign essential hypertension: On IV hydralazine as needed. #Hyperlipidemia: On statin DVT prophylaxis; lovenox. Charges/Coding Visit Charges Inpatient E&M: 17384 Subs Hosp L2
[2023-05-26] MEDS: Ceftriaxone 1 GM/50 ML BAG IV (20:03)
[2023-05-26] MEDS: Azithromycin 500 MG in Dextrose 5%-Water (250mL Bag) 250 ML 250 MG IV (22:34)
[2023-05-26] MEDS: MELATONIN 3 MG TABLET 6 MG PO (22:35)
[2023-05-27] VITALS (23 sets, daily range): BP systolic 101–134; BP diastolic 62–80; PULSE 92–123; RESP 18–24; TEMP 36.5–37.1; O2SAT 87–98
[2023-05-27] MEDS: 0.9% Saline Lock 10 ML Syringe IV ×2 (01:43→21:24)
[2023-05-27] MEDS: Ipratropium/Albuterol Sulfate 3 ML AMPUL.NEB INHALATION ×5 (02:30→22:49)
[2023-05-27] MEDS: Acetaminophen 325 MG Tablet 650 MG PO ×2 (05:25→21:52)
[2023-05-27 06:14] LABS: Hematocrit 31.8 % (37-47); Mean Corp Hgb Conc 31.4 g/dL (32-36); Mean Corpuscular Hgb 28.4 pg (27.0-32.0); Mean Corpuscular Volume 90.3 fL (81-99); Mean Platelet Vol. 9.7 fl (6.2-12.0); POSITIVE COUNT YES; POSITIVE MORPHOLOGY YES; Platelet Count 317 K/mm3 (150-450); RBC Distribution Width CV 15.4 % (11.6-14.6); RBC Distribution Width SD 51.1 fl (35.1-43.9); Red Blood Count 3.52 M/mm3 (4.2-5.4); White Blood Count 13.5 K/mm3 (4.4-11.0)
[2023-05-27 06:34] LABS: Differential Indicated MANUAL DIFF
[2023-05-27 06:37] LABS: Anion Gap 5 (5-15); BUN 11 mg/dL (7-18); BUN/Creat Ratio 10.7 RATIO (10-20); Calcium,Total 8.6 mg/dL (8.5-10.1); Chloride 114 mmol/L (98-107); Creatinine, Serum 1.03 mg/dL (0.55-1.02); EST Glomerular Filtration Rate 56 mL/min (>60); Est Glom Filt Rate - Afr Amer 68 mL/min (>60); Estimated Creatinine Clearance 48.26 ml/min; Glucose 99 mg/dL (74-106); Potassium 3.3 mmol/L (3.5-5.1); Sodium Level 138 mmol/L (136-145)
[2023-05-27] MEDS: Potassium Chloride Oral Tablet 20 MEQ 40 MEQ PO (08:43)
[2023-05-27] MEDS: Hydroxychloroquine 200 MG Tablet PO (08:43)
[2023-05-27] MEDS: Calcium Carb/Vitamin D 1 TABLET Tablet PO ×2 (08:43→16:17)
[2023-05-27] MEDS: Oseltamivir Phosphate 30 MG Capsule PO (09:30)
[2023-05-27] MEDS: Enoxaparin 30 MG/0.3 ML Syringe SC (09:30)
[2023-05-27] MEDS: guaiFENesin 1,200 MG Tablet 1200 MG PO ×2 (09:31→21:53)
[2023-05-27] MEDS: Montelukast 10 MG Tablet PO (09:31)
[2023-05-27] MEDS: Pantoprazole Sodium 20 MG Tablet PO (09:31)
[2023-05-27] MEDS: Fluticasone 0.05% 1 SPRAY NASAL.SRY 2 SPRAY NASAL (09:32)
--- NOTE | 2023-05-27 10:14 | PN_ITS ---
Subjective Subjective Patient seen and examined. She had no active complaints and feels better today. She had an uneventful night. She is noted to be tachycardic and tachypneic and remains on 3L of oyxgen. Review of systems is otherwise negative. Objective Data Objective Data Vital Signs: Vital Signs Temp Pulse Resp BP Pulse Ox O2 Del Method O2 Flow Rate 98.2 F 118 H 24 H 114/68 3 Nasal Cannula 3 05/27/23 09:00 05/27/23 09:44 05/27/23 09:44 05/27/23 09:00 05/27/23 09:44 05/27/23 09:44 05/27/23 09:00 FiO2 93 05/27/23 09:44 Oxygen Flow Rate (L/min) 3 Oxygen Delivery Method Nasal Cannula Weight: 140 lb 3.424 oz Body Mass Index (BMI) 22.5 Intake & Output: Intake and Output for Last 24 Hours 05/25/23 05/26/23 05/27/23 23:59 23:59 23:59 Intake Total 4092.50 / 4092.50 805 / 1805 1255 / 1255 Output Total 1200 / 1200 1300 / 1300 Balance 2892.50 / 2892.50 805 / 805 -45 / -45 Medical Nutrition Assessment Dietitian: Malnutrition Criteria Met Start: 05/25/23 11:05 Freq: Status: Active Protocol: Document 05/25/23 11:05 (Rec: 05/25/23 11:05 [id number]) Nutrition Malnutrition Evidence of Malnutrition Exists Yes Malnutrition (severe): Acute Illness/Injury Evidenced By Suboptimal Energy Intake ( Severe),Weight Loss (Severe) Clinical Problem Acute Disease or Injury Related Malnutrition Etiology severe, acute malnutrition related to inadequate energy intake Signs/Symptoms as evidenced by unintentional 4.8#/3.3% wt loss x 1 week, estimated PO intake meeting < 50% of estimated energy needs x 1 week Status Active Problem Recommendation Dietitian Recommendations/Changes will liberalize diet to regular/gluten free and add 120mL ensure plus high protein 4x/day w/ medpass given evidence of acute malnutrition Lab / Micro Data 05/27/23 05:55 05/27/23 05:55 Labs: Laboratory Results - last 24 hr 05/27/23 05:55: WBC 13.5 H, RBC 3.52 L, Hgb 10.0 L, Hct 31.8 L, MCV 90.3, MCH 28.4, MCHC 31.4 L D, RDW Std Deviation 51.1 H, RDW Coeff of [place] 15.4 H, Plt Count 317, MPV 9.7, Neut % (Auto) Not Reportable, Sodium 138, Potassium 3.3 L, Chloride 114 H, Carbon Dioxide 19.0 L, Anion Gap 5, BUN 11, Creatinine 1.03 H, Estim Creat Clear Calc 48.26, Est GFR (MDRD) Af Amer 68, Est GFR (MDRD) Non-Af 56 L, BUN/Creatinine Ratio 10.7, Glucose 99, Calcium 8.6 Micro: Microbiology 05/25/23 11:30 Urine, Clean Catch Legionella Antigen - Final 05/25/23 11:30 Urine, Clean Catch Streptococcus pneumoniae Antigen (M - Final Streptococcus pneumonia Ag 05/25/23 09:15 Sputum, Expectorated/Coughed Gram Stain - Final 05/25/23 09:15 Sputum, Expectorated/Coughed Respiratory Culture - Preliminary Streptococcus pneumoniae 05/25/23 00:17 Blood Culture (Wb) - Anticubital Left Blood Culture - Preliminary No growth in 48 hours. 05/24/23 23:43 Blood Culture (Wb) - Anticubital Left Blood Culture - Preliminary No growth in 48 hours. 05/24/23 22:45 Mucosa - Nasopharyngeal Respiratory Panel (PCR) - Final Influenza A (Subtype H1) 05/24/23 22:45 Mucosa - Nasopharyngeal Rapid RSV (DFA) - Final 05/24/23 20:08 Nasal Secretion SARS-CoV-2 Antigen (Rapid) - Final Radiography Diagnostic Testing: Radiology Impression Chest X-Ray 05/26/23 05:50 IMPRESSION: Mild cardiomegaly hyperinflation and increased linear interstitial and parenchymal opacities at both bases which may represent worsening of pneumonia or worsening atelectasis. Follow-up chest imaging to resolution recommended. Electronically Signed: Matthew Arevalo MD at 12:51 EST , Physical Exam Const alert, oriented x3, no apparent distress and average body habitus General Appearance: cooperative HEENT normocephalic, head/scalp atraumatic, hearing grossly normal bilaterally, moist oral mucous membranes and oropharynx normal Eyes PERRL and EOMs intact bilaterally Neck no lymphadenopathy and supple Lymph Lymphatic: no lymphadenopathy noted and no lymphedema noted Resp Resp Narrative: mildly diminished breath sounds bibasally, mild wheezes but no crackles. On 3L of oxygen by nasal canula. Gets visibly short of breath with talking Cardio regular rhythm, S1 normal heart sound, S2 normal heart sound and no murmurs Cardio Narrative: tachypneic GI normal to inspection, nondistended, normoactive bowel sounds, soft to palpation, non-tender and non-distended Extremity normal to inspection, full ROM, normal capillary refill, no clubbing, cyanosis or edema and no calf tenderness General Extremity: no tenderness to palpation of joints or extremities Skin General Skin Exam: no breakdown Neuro oriented x3, CN's II-XII intact bilaterally, moves all extremities, no focal motor deficits, no sensory deficits noted and deep tendon reflexes 2+ bilaterally Sensorium / Orientation: awake, alert, oriented to person, oriented to place and oriented to time Speech: speech normal Motor Exam: strength 5/5 throughout and general weakness Psych thought process normal and cooperative Appearance: appropriate Assessment & Plan Assessment/Plan (1) Pneumonia: QUALIFIERS: Pneumonia type: due to unspecified organism Laterality: bilateral Lung location: lower lobe of lung Qualified Code(s): J18.9 - Pneumonia, unspecified organism (2) Hypoxia: (3) Right renal mass: PLAN: Plan #Acute hypoxia due to bilateral pneumonia and influenza infection * CT chest showed bilateral pneumonia. * On IV ceftriaxone and azithromycin. Breathing treatments bronchodilators. * Titrate oxygen to maintain saturation above 90%. On 3L of oxygen by nasal canula * Urine for strep and Legionella negative. Sputum cultures pending. Blood cultures also pending. * on tamiflu for Influenza A. * #Recently diagnosed with right upper pole renal mass * Imaging done also showed a 1 cm lesion encasing within the T11 vertebral body concerning for possible metastasis in the setting of probable renal carcinoma. She does have a strong family history of breast, colon and skin cancer in her family. * Urology on board. Will benefit from MRI of the abdomen to better characterize the lesion. * MRI of the abdomen ordered. Oncology also on board. * #GABRIELLE:resolved. #Elevated D-dimer: CTA of the chest was negative for any evidence of PE. Duplex of the lower extremities also negative #Hypokalemia: Will replace and trend #Hyponatremia: Resolved. #History of Sjogren syndrome: On hydroxychloroquine #Benign essential hypertension: On IV hydralazine as needed. #Hyperlipidemia: On statin DVT prophylaxis; lovenox. Charges/Coding Visit Charges Inpatient E&M: 72725 Subs Hosp L2
[2023-05-27 10:17] LABS: Eosinophil 1 % (0-5); Lymphocyte 8 % (19-41); Monocyte 4 % (0-10); Myelocyte 4 % (0-0); Neutrophil-Band 6 % (0-5); Neutrophil-Segmented 77 % (47-70); Total Cells Counted 100 (MANUAL DIFF)
[2023-05-27 10:18] LABS: Absolute Neutrophil Count 11.2 X10^3/uL (2.0-7.7); Platelet Estimate ADEQUATE (ADEQ); Red Cell Morphology NORM C+C NORMAL (NORM C&C)
[2023-05-27 10:19] LABS: Absolute Lymphocyte Count 1.08 X10^3/uL (0.83-4.51)
[2023-05-27] MEDS: Ondansetron 4 MG/2 ML Vial IV (12:24)
[2023-05-27] MEDS: Ceftriaxone 1 GM/50 ML BAG IV (21:24)
[2023-05-27] MEDS: MELATONIN 3 MG TABLET 6 MG PO (21:51)
[2023-05-27] MEDS: Azithromycin 500 MG in Dextrose 5%-Water (250mL Bag) 250 ML 250 MG IV (22:02)
[2023-05-28] VITALS (15 sets, daily range): BP systolic 103–116; BP diastolic 64–69; PULSE 85–119; RESP 16–24; TEMP 36.8–37.1; O2SAT 90–94
[2023-05-28] MEDS: Ipratropium/Albuterol Sulfate 3 ML AMPUL.NEB INHALATION (07:43)
[2023-05-28] MEDS: Hydroxychloroquine 200 MG Tablet PO (09:27)
[2023-05-28] MEDS: Fluticasone 0.05% 1 SPRAY NASAL.SRY 2 SPRAY NASAL (09:27)
[2023-05-28] MEDS: Oseltamivir Phosphate 30 MG Capsule PO (09:27)
[2023-05-28] MEDS: guaiFENesin 1,200 MG Tablet 1200 MG PO ×2 (09:31→21:26)
[2023-05-28] MEDS: Calcium Carb/Vitamin D 1 TABLET Tablet PO ×2 (09:31→17:15)
[2023-05-28] MEDS: Montelukast 10 MG Tablet PO (09:32)
[2023-05-28] MEDS: Enoxaparin 30 MG/0.3 ML Syringe SC (09:32)
[2023-05-28] MEDS: Pantoprazole Sodium 20 MG Tablet PO (09:32)
--- NOTE | 2023-05-28 10:02 | ECHOCS_ITS ---
Reason For Study: Arrhythmia Procedure This was a 2D Doppler, Color Flow transthoracic echocardiogram. The study was technically difficult. Contrast injection was performed. Exam performed portable in patient room. Left Ventricle Normal LV size. The estimated ejection fraction is 50 %. Mild segmental systolic dysfunction (see wall motion). Infero-Basal: Hypokinetic. Mid-Inferior: Hypokinetic. Inferior [place] : Hypokinetic. Basal inferoseptal: Hypokinetic. Mid-inferoseptal : Hypokinetic. Septal [place] : Hypokinetic. There are regional wall motion abnormalities as specified. Right Ventricle Normal RV size. Normal systolic function. Atria The left and right atria are normal. Bubble contrast study negative for right to left interatrial shunt. Mitral Valve The mitral valve is structurally normal. No prolapse or stenosis seen. Trivial mitral valve insufficiency. Tricuspid Valve Normal tricuspid valve. Aortic Valve Trisinus/trileaflet aortic valve. Mild focal aortic valve calcification. Aortic sclerosis, no stenosis. Trivial eccentric aortic valve insufficiency. Pulmonic Valve The pulmonic valve is not well visualized. Great Vessels Mildly dilated aortic root. Pericardium/Pleural Trivial pericardial effusion. There are no echocardiographic indications of cardiac tamponade. Medication Diluted definity 2ml given slow IV push to enhance endocardial definition. Performed a rapid injection of agitated mix of 9 cc saline and 1cc air to assess for atrial septal defect. MMode/2D Measurements & Calculations LVIDd: 4.6 cm IVSd: 0.89 cm Ao root diam: 4.1 cm LVIDs: 3.6 cm LVPWd: 0.79 cm LA dimension: 3.6 cm RVDd: 3.0 cm FS: 22.3 % LAV(MOD-bp): 24.9 ml LVAd ap4: 29.3 cm2 SV(MOD-sp4): 49.5 ml LAV(MOD-bp) Indexed: 14.5 ml/m2 LVLd ap4: 7.2 cm LAV(MOD-sp2): 35.6 ml EDV(MOD-sp4): 98.9 ml LAV(MOD-sp4): 16.9 ml EDV(sp4-el): 100.5 ml LVAs ap4: 18.7 cm2 LVLs ap4: 5.9 cm ESV(MOD-sp4): 49.4 ml ESV(sp4-el): 50.4 ml EF(MOD-sp4): 50.1 % EF(sp4-el): 49.9 % SV(sp4-el): 50.1 ml LA A4 area: 9.0 cm2 RA A4 area: 9.3 cm2 TAPSE: 1.6 cm Time Measurements MV dec time: 0.06 sec Doppler Measurements & Calculations MV E max jordan: 87.3 cm/sec Lat Peak E' [place]: 9.2 cm/sec MV V2 max: 84.2 cm/sec MV A max jordan: 114.5 cm/sec E/E' lat: 9.5 MV max P.8 mmHg MV E/A: 0.76 MV V2 mean: 51.1 cm/sec MV mean P.3 mmHg MV V2 VTI: 12.9 cm Ao V2 max: 138.8 cm/sec AI max jordan: 373.4 cm/sec LV V1 max: 90.3 cm/sec Ao max P.7 mmHg AI max P.8 mmHg LV V1 max P.3 mmHg Ao V2 mean: 91.8 cm/sec LV V1 mean P.4 mmHg Ao mean P.0 mmHg AI dec slope: 385.2 cm/sec2 LV V1 mean: 73.4 cm/sec Ao V2 VTI: 20.7 cm AI P1/2t: 283.9 msec LV V1 VTI: 15.6 cm AV (velocity ratio): 0.75 PA V2 max: 85.4 cm/sec PA V2 mean: 60.7 cm/sec ECHO/Echo Complete W/ Contrast Interpretation Summary The estimated ejection fraction is 50 %. Mild segmental systolic dysfunction (see wall motion). Mildly dilated aortic root. Trivial pericardial effusion. There are no echocardiographic indications of cardiac tamponade. Compared to previous echo, the LV function has decreased mildly. The study was technically difficult. Contrast injection was performed. Ordering Physician: Sandi Arias Performed By: Bruno Cobian RCS
[2023-05-28 10:18] LABS: Hematocrit 33.8 % (37-47); Hemoglobin 11.3 g/dL (12.0-15.0); Mean Corp Hgb Conc 33.4 g/dL (32-36); Mean Corpuscular Hgb 29.4 pg (27.0-32.0); Mean Platelet Vol. 9.4 fl (6.2-12.0); POSITIVE COUNT YES; POSITIVE MORPHOLOGY YES; Platelet Count 420 K/mm3 (150-450); RBC Distribution Width CV 15.6 % (11.6-14.6); RBC Distribution Width SD 50.8 fl (35.1-43.9); Red Blood Count 3.84 M/mm3 (4.2-5.4); White Blood Count 14.6 K/mm3 (4.4-11.0)
[2023-05-28 10:20] LABS: Differential Indicated MANUAL DIFF
[2023-05-28 10:48] LABS: Lymphocyte 12 % (19-41); Metamyelocyte 7 % (0-1); Monocyte 1 % (0-10); Neutrophil-Band 2 % (0-5); Neutrophil-Segmented 78 % (47-70); Total Cells Counted 100 (MANUAL DIFF)
[2023-05-28 10:49] LABS: Absolute Neutrophil Count 11.7 X10^3/uL (2.0-7.7); Platelet Estimate ADEQUATE (ADEQ); Red Cell Morphology NORM C+C NORMAL (NORM C&C)
[2023-05-28 10:50] LABS: Absolute Lymphocyte Count 1.75 X10^3/uL (0.83-4.51)
[2023-05-28] MEDS: Metoprolol Tartrate 5 MG/5 ML Vial IV (11:00)
[2023-05-28 11:01] LABS: BUN 11 mg/dL (7-18); BUN/Creat Ratio 12.1 RATIO (10-20); Calcium,Total 9.1 mg/dL (8.5-10.1); Creatinine, Serum 0.91 mg/dL (0.55-1.02); Estimated Creatinine Clearance 54.62 ml/min; Glucose 133 mg/dL (74-106); Potassium 3.7 mmol/L (3.5-5.1); Sodium Level 136 mmol/L (136-145)
[2023-05-28 11:02] LABS: Anion Gap 5 (5-15); Chloride 111 mmol/L (98-107)
[2023-05-28 11:43] LABS: Thyroid Stim Hormone (TSH) 1.02 uIU/mL (0.358-3.74)
--- NOTE | 2023-05-28 11:47 | PN_ITS ---
Subjective Subjective Patient seen and examined. She had no active complaints. She was however found to be very tachycardic with HR going up to the 110s. She denied any chest pain, palpitations, dizziness, nausea, vomiting or any other symptoms. Review of systems is otherwise negative. Objective Data Objective Data Vital Signs: Vital Signs Temp Pulse Resp BP Pulse Ox O2 Del Method O2 Flow Rate 98.6 F 107 H 16 103/66 93 Room Air 2 05/28/23 10:49 05/28/23 11:00 05/28/23 10:49 05/28/23 10:49 05/28/23 10:49 05/28/23 10:52 05/27/23 11:00 FiO2 3 05/27/23 09:44 Oxygen Flow Rate (L/min) 2 Oxygen Delivery Method Room Air Weight: 140 lb 3.424 oz Body Mass Index (BMI) 22.5 Intake & Output: Intake and Output for Last 24 Hours 05/26/23 05/27/23 05/28/23 23:59 23:59 23:59 Intake Total 805 / 1805 1305 / 2105 1055 / 1055 Output Total 1300 / 1300 Balance 805 / 805 5 / 805 1055 / 1055 Medical Nutrition Assessment Dietitian: Malnutrition Criteria Met Start: 05/25/23 11:05 Freq: Status: Active Protocol: Document 05/25/23 11:05 (Rec: 05/25/23 11:05 [id number]) Nutrition Malnutrition Evidence of Malnutrition Exists Yes Malnutrition (severe): Acute Illness/Injury Evidenced By Suboptimal Energy Intake ( Severe),Weight Loss (Severe) Clinical Problem Acute Disease or Injury Related Malnutrition Etiology severe, acute malnutrition related to inadequate energy intake Signs/Symptoms as evidenced by unintentional 4.8#/3.3% wt loss x 1 week, estimated PO intake meeting < 50% of estimated energy needs x 1 week Status Active Problem Recommendation Dietitian Recommendations/Changes will liberalize diet to regular/gluten free and add 120mL ensure plus high protein 4x/day w/ medpass given evidence of acute malnutrition Lab / Micro Data 05/28/23 10:05 05/28/23 10:05 Labs: Laboratory Results - last 24 hr 05/28/23 10:05: WBC 14.6 H, RBC 3.84 L, Hgb 11.3 L, Hct 33.8 L, MCV 88.0, MCH 29.4, MCHC 33.4 D, RDW Std Deviation 50.8 H, RDW Coeff of Casey 15.6 H, Plt Count 420, MPV 9.4, Neut % (Auto) Not Reportable, Absolute Neuts (auto) 11.7 H, Absolute Lymphs (auto) 1.75, Total Counted 100, Neutrophils % (Manual) 78 H, Band Neutrophils % 2, Lymphocytes % (Manual) 12 L, Monocytes % (Manual) 1, Metamyelocytes % 7 H, Diff Path Review October foll, Platelet Estimate ADEQUATE, RBC Morphology NORM C+C, Sodium 136, Potassium 3.7, Chloride 111 H, Carbon Dioxide 20.0 L, Anion Gap 5, BUN 11, Creatinine 0.91, Estim Creat Clear Calc 54.62, Est GFR (MDRD) Af Amer 79, Est GFR (MDRD) Non-Af 65, BUN/Creatinine Ratio 12.1, Glucose 133 H, Calcium 9.1, TSH 1.02 Micro: Microbiology 05/25/23 09:15 Sputum, Expectorated/Coughed Gram Stain - Final 05/25/23 09:15 Sputum, Expectorated/Coughed Respiratory Culture - Final Streptococcus pneumoniae 05/25/23 11:30 Urine, Clean Catch Legionella Antigen - Final 05/25/23 11:30 Urine, Clean Catch Streptococcus pneumoniae Antigen (M - Final Streptococcus pneumonia Ag 05/25/23 00:17 Blood Culture (Wb) - Anticubital Left Blood Culture - Preliminary No growth in 48 hours. 05/24/23 23:43 Blood Culture (Wb) - Anticubital Left Blood Culture - Preliminary No growth in 48 hours. 05/24/23 22:45 Mucosa - Nasopharyngeal Respiratory Panel (PCR) - Final Influenza A (Subtype H1) 05/24/23 22:45 Mucosa - Nasopharyngeal Rapid RSV (DFA) - Final 05/24/23 20:08 Nasal Secretion SARS-CoV-2 Antigen (Rapid) - Final Physical Exam Const alert, oriented x3, no apparent distress and average body habitus General Appearance: cooperative HEENT normocephalic, head/scalp atraumatic, hearing grossly normal bilaterally, moist oral mucous membranes and oropharynx normal Eyes PERRL and EOMs intact bilaterally Neck no lymphadenopathy and supple Lymph Lymphatic: no lymphadenopathy noted and no lymphedema noted Resp Resp Narrative: mildly diminished breath sounds bibasally, mild wheezes but no crackles. On room air. Cardio regular rhythm, S1 normal heart sound, S2 normal heart sound and no murmurs Cardio Narrative: tachycardic GI normal to inspection, nondistended, normoactive bowel sounds, soft to palpation, non-tender and non-distended Extremity normal to inspection, full ROM, normal capillary refill, no clubbing, cyanosis or edema and no calf tenderness General Extremity: no tenderness to palpation of joints or extremities Skin General Skin Exam: no breakdown Neuro oriented x3, CN's II-XII intact bilaterally, moves all extremities, no focal motor deficits, no sensory deficits noted and deep tendon reflexes 2+ bilaterally Sensorium / Orientation: awake, alert, oriented to person, oriented to place and oriented to time Speech: speech normal Motor Exam: strength 5/5 throughout and general weakness Psych thought process normal and cooperative Appearance: appropriate Assessment & Plan Assessment/Plan (1) Pneumonia: QUALIFIERS: Pneumonia type: due to unspecified organism Laterality: bilateral Lung location: lower lobe of lung Qualified Code(s): J18.9 - Pneumonia, unspecified organism (2) Hypoxia: (3) Right renal mass: PLAN: Plan #Acute hypoxia due to bilateral pneumonia and influenza infection * CT chest showed bilateral pneumonia. * On IV ceftriaxone and azithromycin. Breathing treatments bronchodilators. * Titrate oxygen to maintain saturation above 90%. On 3L of oxygen by nasal canula * Urine for strep and Legionella negative. Sputum cultures pending. Blood cultures also pending. * on tamiflu for Influenza A. * now on room air. * #sinus tachycardia * Patient's heart rate has been fluctuating has been running in the 120s. TSH within normal limits. Will order 2D echo. * She just had a CT of the chest a few days ago which was negative for any evidence of PE we will hold off further repeat. * Will start on p.o. metoprolol 25 mg twice daily. * IV lopressor prn * #Recently diagnosed with right upper pole renal mass * Imaging done also showed a 1 cm lesion encasing within the T11 vertebral body concerning for possible metastasis in the setting of probable renal carcinoma. She does have a strong family history of breast, colon and skin cancer in her family. * Urology on board. Will benefit from MRI of the abdomen to better characterize the lesion. * to have MRI on outpatient basis * oncology reviewed her during this admission and she is to follow up with them on outpatient basis. * #GABRIELLE:resolved. #Elevated D-dimer: CTA of the chest was negative for any evidence of PE. Duplex of the lower extremities also negative #Hypokalemia: Will replace and trend #Hyponatremia: Resolved. #History of Sjogren syndrome: On hydroxychloroquine #Benign essential hypertension: On IV hydralazine as needed. #Hyperlipidemia: On statin DVT prophylaxis; lovenox. Disposition: Anticipate discharge tomorrow if her heart rate improves. Charges/Coding Visit Charges Inpatient E&M: 77298 Subs Hosp L2
[2023-05-28 13:09] LABS: EST Glomerular Filtration Rate 65 mL/min (>60); Est Glom Filt Rate - Afr Amer 79 mL/min (>60)
[2023-05-28] MEDS: Metoprolol Tartrate 25 MG Tablet PO ×2 (13:42→21:26)
[2023-05-28] MEDS: Ondansetron 4 MG/2 ML Vial IV (13:42)
[2023-05-28] MEDS: Acetaminophen 325 MG Tablet 650 MG PO (21:27)
[2023-05-28] MEDS: MELATONIN 3 MG TABLET 6 MG PO (21:27)
[2023-05-28] MEDS: Ceftriaxone 1 GM/50 ML BAG IV (21:29)
[2023-05-29] VITALS (9 sets, daily range): BP systolic 93–123; BP diastolic 54–74; PULSE 75–114; RESP 18–22; TEMP 36.6–36.9; O2SAT 90–95
[2023-05-29] MEDS: Azithromycin 500 MG in Dextrose 5%-Water (250mL Bag) 250 ML 250 MG IV
[2023-05-29] MEDS: 0.9% Normal Saline (250mL Bag) 250 ML 15 ML IV (00:07)
[2023-05-29] MEDS: Acetaminophen 325 MG Tablet 650 MG PO (09:00)
[2023-05-29] MEDS: Calcium Carb/Vitamin D 1 TABLET Tablet PO (09:57)
[2023-05-29] MEDS: Metoprolol Tartrate 25 MG Tablet PO (09:57)
[2023-05-29] MEDS: Hydroxychloroquine 200 MG Tablet PO (09:57)
[2023-05-29] MEDS: Montelukast 10 MG Tablet PO (09:58)
[2023-05-29] MEDS: Pantoprazole Sodium 20 MG Tablet PO (09:58)
[2023-05-29] MEDS: Enoxaparin 30 MG/0.3 ML Syringe SC (09:58)
[2023-05-29] MEDS: guaiFENesin 1,200 MG Tablet 1200 MG PO (09:58)
[2023-05-29] MEDS: Fluticasone 0.05% 1 SPRAY NASAL.SRY 2 SPRAY NASAL (09:58)
[2023-05-29] MEDS: Oseltamivir Phosphate 30 MG Capsule PO (10:00)
--- NOTE | 2023-05-29 13:24 | DCINST_ITS ---
Discharge Instructions Diet Discharge Diet: Low fat / Low cholesterol Activity Discharge Activity: Return to Normal Activity Weight Bearing Status: Weight bearing as tolerated Dressing / Incision Call your doctor if you observe: Fever of 101 or Higher, Shortness of breath, Dizziness, Swelling in the ankles, Chest pain and Increased palpitations (irregular heartbeat) Follow Up Care Test Results: Test results from this visit will be discussed in further detail at your follow- up appointment, if applicable. Discharge Plan Admission Admit Date/Time: 05/25/23 03:37 Primary Reason for Your Visit: pneumonia Attending Provider: Sandi Arias Primary Care Provider: Vinny Mancilla Consulting Providers: Darius Garcia; Darius Zepeda; Ryley Garner; Steven Francisco; Benedicto Mccain; Brent Augustin; Dontae Handy; Derek Obrien; Carlotta Head NP; Garret Longoria; Jason Marques Instructions Patient Instructions: ED Pneumonia (Adult) Discharge Orders/Prescriptions Prescriptions: New metoprolol tartrate 25 mg Tablet 25 mg PO BID Qty: 60 2RF levofloxacin 500 mg tablet 500 mg PO DAILY Qty: 5 0RF Continued omeprazole 20 MG capsule 20 mg PO DAILY fluticasone propionate 1 SPRAY spray,suspension 2 spray NASAL DAILY calcium carbonate-vitamin D3 1 TAB tablet 1 tab PO BIDCM montelukast 10 MG tablet 10 mg PO DAILY cholecalciferol (vitamin D3) 2,000 UNIT capsule 2,000 unit PO DAILY hydroxychloroquine 200 mg tablet 200 mg PO DAILY Referrals / Follow Up: Graeme Jennings MD [Med Staff - Active Staff] - Within 2 Weeks (see to establish care for abnormal echo) Vinny Mancilla MD [Primary Care Provider] - Within 2 Weeks Garret Longoria MD [Med Staff - Active Staff] - Within 2 Weeks Steven Francisco MD [Med Staff - Active Staff] - Within 2 Weeks Disposition Disposition (needs filled in before D/C Order can be placed): Home, Self Care
--- NOTE | 2023-05-29 13:24 | PCM.DC.SUM ---
Providers Date of Admission: 05/25/23 Date of Discharge: 05/29/23 Primary Care Physician: Dr. Vinny Mancilla MD Consultations 05/25/23 03:45 Consult: Urology Routine Consulting Provider: Garret Longoria Reason for Consult: Newly diagnosed ~2.2 cm renal mass suspicious for renal cell carcinoma EMERGENT Consult: No MD Notified: Yes Date Notified: 05/25/23 Time Notified: 12:21 Method of Notification: Verbal Comments:: telephone call 05/25/23 04:15 Consult: Oncology/Hematology Routine Consulting Provider: [facility]) Reason for Consult: ~2.2 cm renal mass with possible metastases with ~1 centimeter mass in T11 EMERGENT Consult: No MD Notified: Yes Date Notified: 05/25/23 Time Notified: 11:12 Method of Notification: phone 05/25/23 12:53 Consult: Urology Routine Consulting Provider: Garret Longoria Reason for Consult: right renal mass 2.2 cm EMERGENT Consult: No MD Notified: Yes Date Notified: 05/25/23 Time Notified: 12:54 Method of Notification: Verbal Reason For Visit: BIBASILAR PNEUMONIA WITH A -2.2 CM RENAL MASS OF Diagnosis Discharge Diagnosis (1) Pneumonia: Status: Acute Code(s): J18.9 - Pneumonia, unspecified organism Qualifiers: Laterality: bilateral Lung location: lower lobe of lung Pneumonia type: due to unspecified organism Qualified Code(s): J18.9 - Pneumonia, unspecified organism (2) Hypoxia: Status: Acute Code(s): R09.02 - Hypoxemia (3) Right renal mass: Status: Acute Code(s): N28.89 - Other specified disorders of kidney and ureter Plan #Acute hypoxia due to bilateral pneumonia and influenza infection CT chest showed bilateral pneumonia. On IV ceftriaxone and azithromycin. Breathing treatments bronchodilators. Titrate oxygen to maintain saturation above 90%. On 3L of oxygen by nasal canula Urine for strep and Legionella negative. Sputum cultures pending. Blood cultures also pending. on tamiflu for Influenza A. now on room air. #sinus tachycardia Patient's heart rate has been fluctuating has been running in the 120s. TSH within normal limits. Will order 2D echo. She just had a CT of the chest a few days ago which was negative for any evidence of PE we will hold off further repeat. Will start on p.o. metoprolol 25 mg twice daily. IV lopressor prn #Recently diagnosed with right upper pole renal mass Imaging done also showed a 1 cm lesion encasing within the T11 vertebral body concerning for possible metastasis in the setting of probable renal carcinoma. She does have a strong family history of breast, colon and skin cancer in her family. Urology on board. Will benefit from MRI of the abdomen to better characterize the lesion. to have MRI on outpatient basis oncology reviewed her during this admission and she is to follow up with them on outpatient basis. #GABRIELLE:resolved. #Elevated D-dimer: CTA of the chest was negative for any evidence of PE. Duplex of the lower extremities also negative #Hypokalemia: Will replace and trend #Hyponatremia: Resolved. #History of Sjogren syndrome: On hydroxychloroquine #Benign essential hypertension: On IV hydralazine as needed. #Hyperlipidemia: On statin DVT prophylaxis; lovenox. Disposition: Anticipate discharge tomorrow if her heart rate improves. Medications at Discharge Home Medications calcium carbonate 600 mg-vitamin D3 20 mcg (800 unit) tablet 1 tab PO BIDCM 03/14/13 fluticasone propionate 50 mcg/actuation nasal spray,suspension 2 spray NASAL DAILY 03/14/13 omeprazole 20 mg capsule,delayed release 20 mg PO DAILY 03/14/13 montelukast 10 mg tablet 10 mg PO DAILY ALLERGIES 09/23/14 cholecalciferol (vitamin D3) 50 mcg (2,000 unit) capsule 2,000 unit PO DAILY 09/20/17 hydroxychloroquine 200 mg tablet 200 mg PO DAILY 05/24/23 levofloxacin 500 mg tablet 500 mg PO DAILY #5 tabs 05/29/23 metoprolol tartrate 25 mg tablet 25 mg PO BID #60 tabs 05/29/23 Hospital Course Operations None Procedures 2-D Echocardiogram Summary of Care Provided Minutes Spent on Discharge: 55 Hospital Course: Patient is a 68-year-old female with a past medical history as outlined was admitted through the ED on 05/25/2023 with a complaint of shortness of breath which started 5 days prior to admission. Had gradually worsened to the point where she could not even walk from the kitchen to her living room without getting short of breath. She had an associated cough which was not productive of sputum. She denied any fever or chills, sore throat, any chest pain or rhinorrhea or any other symptoms. Review of systems otherwise negative. CTA of the chest done was negative for PE but showed extensive bilateral pneumonia. White cell count was elevated at 13. CT also showed an incidental finding of a 2.2 cm mass in the upper pole of the right kidney with high index of suspicion for renal cell carcinoma and a 1 cm lucent lesion within the T11 vertebral body suspicious for possible metastatic disease. Cr was 1.95, and she had hypokalemia and and hypokalemia. D dimer was elevated but CTA was negative for PE. Duplex of the lower extremities was also negative for any evidence of PE. She was admitted and managed for hypoxia due to community-acquired pneumonia. She was started on IV vancomycin and Zosyn. Oncology and urology were consulted in light of the finding of right renal mass. Hyponatremia is subsequently resolved. Urine for strep pneumonia antigen was positive. She was hydrated with IV fluids and felt better. His symptoms resolved. Hospital course was complicated by persistent tachycardia. TSH done was within normal limits. Of note CTA had been negative for any evidence of PE. She had a 2D echo which showed EF of 50% with mild segmental systolic dysfunction and regional wall motion abnormalities namely hypokinesia of the left ventricle. This was discussed with cardiology (Dr Grove) who recommended that since patient's EF was stable at 50%, she could follow-up with pulmonology on outpatient basis. She had been started on p.o. metoprolol 25 mg twice daily during this admission and this was continued. She is to follow-up with her primary care doctor within 1 to 2 weeks. She was also to follow-up with oncology and urology on outpatient basis. Oncology did see patient and recommended that she have a bone scan and MRI of the abdomen and pelvis. Could be done on outpatient basis when she followed up with oncology. She was also referred to cardiology in light of the persistent sinus tachycardia and abnormal echo findings. She was discharged home on PO levofloxacin 50mg daily x 5 days for pneumonia. Patient seen and examined prior to discharge. She felt well and had no complaints. She had an uneventful night. Review of systems otherwise negative. Labs and vitals reviewed. Home medication reviewed and reconciled. Physical Exam Const alert, oriented x3, no apparent distress and average body habitus General Appearance: cooperative and comfortable Orientation / Consciousness: awake Exam Limitations: no limitations HEENT normocephalic, head/scalp atraumatic, hearing grossly normal bilaterally, moist oral mucous membranes and oropharynx normal Mouth: oral and palatal mucosa normal Eyes PERRL and EOMs intact bilaterally Neck no lymphadenopathy and supple Lymph Lymphatic: no lymphadenopathy noted and no lymphedema noted Resp Resp Narrative: mildly diminished breath sounds bibasally, mild wheezes but no crackles. On room air. Auscultation: rhonchi Cardio regular rate, regular rhythm, S1 normal heart sound, S2 normal heart sound and no murmurs Cardio Narrative: tachycardic GI normal to inspection, nondistended, normoactive bowel sounds, soft to palpation, non-tender and non-distended Extremity normal to inspection, full ROM, normal capillary refill, no clubbing, cyanosis or edema and no calf tenderness General Extremity: no tenderness to palpation of joints or extremities Skin no rashes or lesions noted and skin turgor normal General Skin Exam: no breakdown Neuro oriented x3, CN's II-XII intact bilaterally, moves all extremities, no focal motor deficits, no sensory deficits noted and deep tendon reflexes 2+ bilaterally Sensorium / Orientation: awake, alert, oriented to person, oriented to place and oriented to time Speech: speech normal Motor Exam: strength 5/5 throughout and general weakness Psych thought process normal and cooperative Appearance: appropriate Medical Records Data Medical Nutrition Assessment Dietitian: Malnutrition Criteria Met Start: 05/25/23 11:05 Freq: Status: Active Protocol: Document 05/25/23 11:05 (Rec: 05/25/23 11: [id number]) Nutrition Malnutrition Evidence of Malnutrition Exists Yes Malnutrition (severe): Acute Illness/Injury Evidenced By Suboptimal Energy Intake ( Severe),Weight Loss (Severe) Clinical Problem Acute Disease or Injury Related Malnutrition Etiology severe, acute malnutrition related to inadequate energy intake Signs/Symptoms as evidenced by unintentional 4.8#/3.3% wt loss x 1 week, estimated PO intake meeting < 50% of estimated energy needs x 1 week Status Active Problem Recommendation Dietitian Recommendations/Changes will liberalize diet to regular/gluten free and add 120mL ensure plus high protein 4x/day w/ medpass given evidence of acute malnutrition Weight / BMI Weight Weight: 140 lb 3.424 oz Body Mass Index (BMI) 22.5 ABG / Lab / Microbiology Data 05/28/23 10:05 05/28/23 10:05 Microbiology: Microbiology 05/25/23 09:15 Sputum, Expectorated/Coughed Gram Stain - Final 05/25/23 09:15 Sputum, Expectorated/Coughed Respiratory Culture - Final Streptococcus pneumoniae 05/25/23 11:30 Urine, Clean Catch Legionella Antigen - Final 05/25/23 11:30 Urine, Clean Catch Streptococcus pneumoniae Antigen (M - Final Streptococcus pneumonia Ag 05/25/23 00:17 Blood Culture (Wb) - Anticubital Left Blood Culture - Preliminary No growth in 48 hours. 05/24/23 23:43 Blood Culture (Wb) - Anticubital Left Blood Culture - Preliminary No growth in 48 hours. 05/24/23 22:45 Mucosa - Nasopharyngeal Respiratory Panel (PCR) - Final Influenza A (Subtype H1) 05/24/23 22:45 Mucosa - Nasopharyngeal Rapid RSV (DFA) - Final 05/24/23 20:08 Nasal Secretion SARS-CoV-2 Antigen (Rapid) - Final Radiography Diagnostic Testing: Radiology Impression Venous Doppler Study 05/25/23 04:15 Interpretation Summary Deep veins of the bilateral lower extremities are patent and compressible segmentally. There is no evidence of bilateral lower extremity deep vein thrombosis. The bilateral great saphenous veins appear patent and compressible segmentally. Ordering Physician: Darius Garcia Referring Physician: Vinny Mancilla Performed By: Lou Garibay RVT Echocardiogram 05/28/23 10:02 Interpretation Summary The estimated ejection fraction is 50 %. Mild segmental systolic dysfunction (see wall motion). Mildly dilated aortic root. Trivial pericardial effusion. There are no echocardiographic indications of cardiac tamponade. Compared to previous echo, the LV function has decreased mildly. The study was technically difficult. Contrast injection was performed. Ordering Physician: Sandi Arias Performed By: Bruno Cobian RCS D/C Instructions Discharge Diet: Low fat / Low cholesterol Discharge Activity: Return to Normal Activity Weight Bearing Status: Weight bearing as tolerated Call your doctor if you observe: Fever of 101 or Higher, Shortness of breath, Dizziness, Swelling in the ankles, Chest pain and Increased palpitations (irregular heartbeat) Meaningful Use Info Meaningful Use Diagnoses (Choose all that apply): None applicable Discharge Plan Admission Admit Date/Time: 05/25/23 03:37 Primary Reason for Your Visit: pneumonia Attending Provider: Sandi Arias Primary Care Provider: Vinny Mancilla Consulting Providers: Darius Garcia; Darius Zepeda; Ryley Garner; Steven Francisco; Benedicto Mccain; Brent Augustin; Dontae Handy; Derek Obrien; Carlotta Head NP; Garret Longoria; aJson Marques Instructions Patient Instructions: ED Pneumonia (Adult) Discharge Orders/Prescriptions Prescriptions: New metoprolol tartrate 25 mg Tablet 25 mg PO BID Qty: 60 2RF levofloxacin 500 mg tablet 500 mg PO DAILY Qty: 5 0RF Continued omeprazole 20 MG capsule 20 mg PO DAILY fluticasone propionate 1 SPRAY spray,suspension 2 spray NASAL DAILY calcium carbonate-vitamin D3 1 TAB tablet 1 tab PO BIDCM montelukast 10 MG tablet 10 mg PO DAILY cholecalciferol (vitamin D3) 2,000 UNIT capsule 2,000 unit PO DAILY hydroxychloroquine 200 mg tablet 200 mg PO DAILY Referrals / Follow Up: Graeme Jennings MD [Med Staff - Active Staff] - 06/14/23 11:00 am (see to establish care for abnormal echo. Appointment is with Dr. Perez.) Vinny Mancilla MD [Primary Care Provider] - 06/05/23 11:00 am (Appointment is with Dr. Rudd. Dr. Mancilla had no openings till July.) Garret Longoria MD [Med Staff - Active Staff] - Within 2 Weeks (Dr. Longoria's office is closed today for the holiday. I have left a message for the office to call the patient. If the office does not call by the end of the week please call the office. [phone].) Steven Francisco MD [Med Staff - Active Staff] - 06/06/23 10:00 am Disposition Disposition (needs filled in before D/C Order can be placed): Home, Self Care Charges/Coding Visit Charges Inpatient E&M: 00380 Disch Hosp >30min
[2023-05-29 13:39] LABS: Pathologist Review Reviewed
[2023-05-29 13:41] LABS: Pathologist Review Reviewed
--- NOTE | 2023-05-29 15:36 | CASEMGMT ---
This pt does not qualify for home O2. This RN CM to pt bedside for DC assistance. The pt denies any needs regarding the DC process. Pt to DC home with no needs. Ciro Francois RN CM
== END 2023-05-29 15:28 | disposition home or self-care (01) | DRG 193 ==
LOC: ED 05-25 03:02 → MS3 05-25 03:41
PROVIDERS: Internal Medicine; Nurse Practitioner Family; Admitting Provider Internal Medicine; Emergency Provider Emergency Medicine; PCP Family Medicine; Visit Provider Student in an Organized Health Care Education/Training Program
DX: J10.08 Influenza due to other identified influenza virus with other specified pneumonia (principal); E43 Unspecified severe protein-calorie malnutrition; N17.9 Acute kidney failure, unspecified; C79.51 Secondary malignant neoplasm of bone; E87.1 Hypo-osmolality and hyponatremia; C64.9 Malignant neoplasm of unspecified kidney, except renal pelvis; J47.0 Bronchiectasis with acute lower respiratory infection; D64.9 Anemia, unspecified; N18.32 Chronic kidney disease, stage 3b; J13 Pneumonia due to Streptococcus pneumoniae; M35.00 Sjogren syndrome, unspecified; I12.9 Hypertensive chronic kidney disease with stage 1 through stage 4 chronic kidney disease, or unspecified chronic kidney disease; M19.90 Unspecified osteoarthritis, unspecified site; E87.6 Hypokalemia; K21.9 Gastro-esophageal reflux disease without esophagitis; E78.2 Mixed hyperlipidemia; Z80.0 Family history of malignant neoplasm of digestive organs; Z80.3 Family history of malignant neoplasm of breast; Z80.8 Family history of malignant neoplasm of other organs or systems; N28.1 Cyst of kidney, acquired; Z82.3 Family history of stroke; Z68.22 Body mass index [BMI] 22.0-22.9, adult
CPT/HCPCS: 36415; 71045; 71046; 71275; 80048; 80076; 81002; 82550; 83605; 83615; 84443; 84484; 85025; 85379; 87040; 87070; 87077; 87186; 87205; 87449; 87633; 87641; 87807; 87811; 93005; 93306; 93970; 94640; 94760; 99283; J7030; J7050; Q9957; Q9967; A4216; C8929; J2405

== ENCOUNTER → 2023-06-26 | Outpatient (CLI) | payer MEDICARE, OTHER, SELFPAY ==
--- NOTE | 2023-06-26 13:48 | CT_ITS ---
STUDY: CT ABDOMEN AND PELVIS WITH AND WITHOUT CONTRAST REASON FOR EXAM: Female, 68 years old. NEOPLASM OF UNCERTAIN BEHAVIOR OF R KIDNEY RADIATION DOSAGE (If Supplied By Facility): CTDIvol = ( 10.23 ) mGy, DLP = ( 1099.32 ) mGycm TECHNIQUE: Transaxial images were obtained from the dome of the diaphragm to the symphysis pubis without oral contrast. IV 100mL Isovue-300 was administered. Sagittal and coronal images were reconstructed. Individualized dose optimization techniques were used for this CT. COMPARISON: None. FINDINGS: Increasing markings at the lung bases with areas of confluence or septi left lung base. Further radiographic follow-up is recommended. The visualized portions of the heart are within normal limits. Normal liver. Normal gallbladder and extrahepatic biliary system. Normal spleen. Normal pancreas. Normal bilateral adrenal glands. There is a 3.3 cm x 3.1 cm cyst in the upper pole of the right kidney. There is a 2 cm x 1.6 cm heterogeneous enhancing mass along the superior medial portion of the right kidney. A neoplastic process should be ruled out. There is also evidence of a 2.4 cm x 2.1 cm cyst in the lower pole of the right kidney. There is a 1 cm low density nodule in the anterior inferior pole of the left kidney. This is not a typical cyst. Follow-up with ultrasound is recommended. 1.2 cm calculus in the lower pole calyx of the left kidney. Normal visualized stomach. Normal small intestine. Normal colon. There is a calcified appendicolith. Normal abdominal aorta. Normal inferior vena cava. Normal retroperitoneum. Normal urinary bladder. Normal abdominal wall. There are mild degenerative changes of the visualized lumbar spine. CT/CT Abd/Pelvis W/WO Contrast IMPRESSION: Bilateral renal cysts. Suspicious nodule in the upper medial portion of the right kidney as well as a 1 cm low density in the anterior aspect of the lower pole of the left kidney. A neoplastic process should be ruled out. Electronically Signed: Roel Vo MD at 15:47 EST ,
--- OUTSIDE RECORDS SUMMARY | 2023-06-26 14:09 | XMS RPT_ITS | CCD ---
Author Name Unknown Address [address] [place] [address] Organization [facility] Care Team Providers Care Yard Spotter Name Role Phone Fortino Briones MD Primary Care Provider [phone] NELY, MINDI Referring Unavailable FORTINO BRIONES Primary Care Unavailable NELY MINDI Referring Unavailable FORTINO BRIONES Primary Care Unavailable FORTINO BRIONES Primary Care Unavailable MINDI MCKAY Referring Unavailable FORTINO BRIONES Primary Care Unavailable LAZARA MCNULTY Referring Unavailable FORTINO BRIONES Primary Care Unavailable LAZARA MCNULTY Referring Unavailable LAZARA MCNULTY Attending Unavailable FORTINO BRIONES Primary Care Unavailable LAZARA MCNULTY Referring Unavailable FORTINO BRIONES Primary Care Unavailable LAZARA MCNULTY Attending Unavailable FORTINO BRIONES Primary Care Unavailable FORTINO BRIONES Primary Care Unavailable FOUZIA QUIROZ Referring Unavailable FORTINO BRIONES Primary Care Unavailable ALICIA HAMLIN Attending Unavailable FORTINO BRIONES Primary Care Unavailable ALICIA HAMLIN Attending Unavailable FORTINO BRIONES Primary Care Unavailable FORTINO BRIONES Primary Care Unavailable Allergies Allergy Classification Reported Allergen(s) Allergy Type Date of Onset Reaction(s) Facility (20 sources) aMILoride / hydroCHLOROthiaz stone; Translations: [AMILORIDE-HYDRO CHLOROTHIAZIDE] Drug Allergy 6 Intolerance [facility] Work Phone: (20 sources) Amoxicillin; Translations: [AMOXICILLIN] Drug Allergy 6 Rash [facility] Work Phone: (20 sources) Amoxicillin / Clavulanate; Translations: [AMOXICILLIN-POT CLAVULANATE] Drug Allergy 5 GI Upset [facility] Work Phone: (20 sources) Cephalexin; Translations: [CEPHALEXIN] Drug Allergy 6 Intolerance [facility] Work Phone: (20 sources) Doxycycline; Translations: [DOXYCYCLINE] Drug Allergy 5 Other: See Comments [facility] Work Phone: (20 sources) Grass pollen; Translations: [GRASS POLLEN] Drug Allergy 6 Unknown [facility] Work Phone: [phone] (20 sources) House dust mite; Translations: [DUST MITES] Allergy to substance 6 Unknown [facility] Work Phone: [phone] (20 sources) Lisinopril; Translations: [LISINOPRIL] Drug Allergy 1 Cough [facility] Work Phone: [phone] (20 sources) Sulfonamides (Antibiotic); Translations: [SULFA (SULFONAMIDE ANTIBIOTICS)] Drug Allergy 9 Rash [facility] Work Phone: [phone] (20 sources) Tree; Translations: [TREES] Allergy to substance 6 Unknown [facility] Work Phone: (20 sources) ERYTHRAMYCIN [Other] Propensity to adverse reactions 5 GI Upset [facility] Work Phone: (1 source) Erythromycin; Translations: [ERYTHROMYCIN] Drug Allergy 3 [facility] Repository (1 source) OTHER; Translations: [OTHER] Propensity to adverse reactions (disorder) 5 [facility] Repository Medications Current Medications Medication Drug [...] Drug Class(es) Dates Sig (Normalized) Sig (Original) [id number] 200 actuat albuterol 0.09 mg/actuat metered dose [...] hypergammaglobulinem ia] Onset: 06-27-2013 06-26-2016 Chronic Other diseases of kidney and ureters (1 source) Other specified disorders of kidney and ureter; Translations: [Renal mass] Onset: 06-05-2023 Chronic Other gastrointestinal disorders (20 sources) Celiac [...] pansinusitis; Translations: [Acute pansinusitis, unspecified] 2023 Episodic Pneumonia (except that caused by tuberculosis or sexually transmitted disease) (6 sources) Bacterial pneumonia; Translations: [Unspecified bacterial pneumonia] Onset: 11-10-2022 Episodic Systemic lupus erythematosus and connective tissue disorders (20 sources) Sjogren's syndrome; Translations: [Sicca syndrome, unspecified] 05-02-2017 Chronic Unclassified (1 source) Acute cough; Translations: [Acute cough] Onset: 09-11-2022 Past or Other Problems Problem Classification Problem Date Documented Da te Episodic/Chronic Gastritis and duodenitis (20 sources) Duodenitis; Translations: [Duodenitis without bleeding] Onset: 04-12-2010 11-10-2014 Episodic Other aftercare (20 sources) Drug therapy finding; Translations: [Other fdc (current) drug therapy] Onset: 07-30-2017 02-18-2018 Episodic [...] thrombosis and embolism] Onset: 06-17-2009 08-07-2018 Episodic Viral infection (20 sources) Postherpetic neuralgia; Translations: [Other postherpetic nervous system involvement] Onset: 10-15-2020 10-15-2020 Episodic Results Test Name Value Interpretation Reference Range Facil ity Vital Signs Date Time Vital Sign Value Performing Clinician Kesha bonner 2023 10:45-0400 Body temperature 98.29 [degF] Fouzia Quiroz PA-C Work Phone: [facility] 2023 10:45-0400 Body weight 67.5 kg Fouzia Quiroz PA-C Work Phone: [facility] 09-24-2023 10:45-0400 Diastolic blood pressure 74 mm[Hg] Fouzia Athy PA-C Work Phone: [facility] 2023 10:45-0400 Heart rate 98 /min Fouzia Athy PA-C Work Phone: [facility] 2023 10:45-0400 Respiratory rate 20 /min Fouzia Athy PA-C Work Phone: [facility] 2023 10:45-0400 SaO2% (BldA) [Mass fraction] 97 % Fouzia Athy PA-C Work Phone: [facility] 2023 10:45-0400 Systolic blood pressure 124 mm[Hg] Fouzia Athy PA-C Work Phone: [facility] 10-09-2022 13:30-0400 Body temperature 98.4 [degF] Lazara Mcnulty PA-C Work Phone: [facility] 10-09-2022 13:30-0400 Body weight 66.68 kg Lazara Mcnulty PA-C Work Phone: [facility] 10-09-2022 13:30-0400 Diastolic blood pressure 78 mm[Hg] Lazara Mcnulty PA-C Work Phone: [facility] 10-09-2022 13:30-0400 Heart rate 64 /min Lazara Mcnulty PA-C Work Phone: [facility] 10-09-2022 13:30-0400 Respiratory rate 16 /min Lazara Mcnulty PA-C Work Phone: [facility] 10-09-2022 13:30-0400 SaO2% (BldA) [Mass fraction] 100 % Lazara Mcnulty PA-C Work Phone: [facility] 10-09-2022 13:30-0400 Systolic blood pressure 102 mm[Hg] Lazara Mcnulty PA-C Work Phone: [facility] 09-15-2022 08:58-0400 Body temperature 97.7 [degF] Lazaracarlos Mcnulty PA-C Work Phone: [facility] 09-15-2022 08:58-0400 Body weight 66.22 kg Lazara Mcnulty PA-C Work Phone: [facility] 09-15-2022 08:58-0400 Diastolic blood pressure 76 mm[Hg] Lazara Mcnulty PA-C Work Phone: [facility] 09-15-2022 08:58-0400 Heart rate 98 /min Lazara Mcnulty PA-C Work Phone: [facility] 09-15-2022 08:58-0400 Respiratory rate 18 /min Lazara Mcnulty PA-C Work Phone: [facility] 09-15-2022 08:58-0400 SaO2% (BldA) [Mass fraction] 99 % Lazara Mcnulty PA-C Work Phone: [facility] 09-15-2022 08:58-0400 Systolic blood pressure 108 mm[Hg] Lazara Mcnulty PA-C Work Phone: [facility] 09-11-2022 10:36-0400 Body temperature 99.61 [degF] Fouzia Athy PA-C Work Phone: [facility] 09-11-2022 10:36-0400 Body weight 67.13 kg Fouzia Athy PA-C Work Phone: [facility] 09-11-2022 10:36-0400 Diastolic blood pressure 62 mm[Hg] Fouzia Athy PA-C Work Phone: [facility] 09-11-2022 10:36-0400 Heart rate 114 /min Fouzia Athy PA-C Work Phone: [facility] 09-11-2022 10:36-0400 Respiratory rate 18 /min Fouzia Athy PA-C Work Phone: [facility] 09-11-2022 10:36-0400 SaO2% (BldA) [Mass fraction] 95 % Fouzia Athy PA-C Work Phone: [facility] 09-11-2022 10:36-0400 Systolic blood pressure 122 mm[Hg] Fouzia Quiroz PA-C Work Phone: [facility] 08-10-2022 16:11-0500 Body weight 69.4 kg Alicia Knoble AIRCRAFT MAINTENANCE SUPERVISOR.NURSE CLINICAL Work Phone: [facility] 08-10-2022 16:11-0500 Diastolic blood pressure 80 mm[Hg] Alicia Alexoble AIRCRAFT MAINTENANCE SUPERVISOR.NURSE CLINICAL Work Phone: [facility] 08-10-2022 16:11-0500 Heart rate 80 /min Alicia Alexoble AIRCRAFT MAINTENANCE SUPERVISOR.NURSE CLINICAL Work Phone: [facility] 08-10-2022 16:11-0500 Respiratory rate 14 /min Alicia Alexoble AIRCRAFT MAINTENANCE SUPERVISOR.NURSE CLINICAL Work Phone: [facility] 08-10-2022 16:11-0500 Systolic blood pressure 124 mm[Hg] Alicia Alexoble AIRCRAFT MAINTENANCE SUPERVISOR.NURSE CLINICAL Work Phone: [facility] 01-13-2022 07:01-0400 Body height 165.7 cm Mindi Proctor AIRCRAFT MAINTENANCE SUPERVISOR.NURSE CLINICAL Work Phone: [facility] 01-13-2022 07:01-0400 Body weight 69.67 kg Mindi Proctor AIRCRAFT MAINTENANCE SUPERVISOR.NURSE CLINICAL Work Phone: [facility] 01-13-2022 07:01-0400 Diastolic blood pressure 66 mm[Hg] Mindi Nely AIRCRAFT MAINTENANCE SUPERVISOR.NURSE CLINICAL Work Phone: [facility] 01-13-2022 07:01-0400 Systolic blood pressure 120 mm[Hg] Mindi Nely AIRCRAFT MAINTENANCE SUPERVISOR.NURSE CLINICAL Work Phone: [facility] Encounters Encounter Date Encounter Type Care Provider Facility Start: 06-05-2023 End: 06-06-2023 ambulatory ALICIA HAMLIN Facility:[facility] Start: 05-22-2023 End: 05-22-2023 ambulatory FORTINO BRIONES Facility:[facility] Start: 03-13-2023 End: 03-13-2023 ambulatory [facility] Facility:[facility] Start: 03-13-2023 End: 03-13-2023 Subsequent hospital visit by physician Diagnostic Mammo [facility] Mammogram Procedures Date Procedure Procedure Detail Performing Clinician Start: 03-13-2023 Digital breast tomosynthesis unilateral Mindi Mckay AIRCRAFT MAINTENANCE SUPERVISOR.REBECCA Work Phone: Start: 03-13-2023 Us breast uni real t surya with image limited Mindi Mckay AIRCRAFT MAINTENANCE SUPERVISOR.REBECCA Work Phone: Start: 02-09-2023 Screening mammograph y bi 2-view breast inc cad Mindi Nely AIRCRAFT MAINTENANCE SUPERVISOR.REBECCA Work Phone: Start: 08-10-2022 Ecg routine ecg w/le ast 12 lds i&r only [facility] Provider Start: 01-13-2022 End: 01-13-2022 Mammography Mindi Nely AIRCRAFT MAINTENANCE SUPERVISOR.C JUNIOR UNDERWRITER Work Phone: Start: 01-27-2021 [facility] AIRCRAFT MAINTENANCE SUPERVISOR.REBECCA Work Phone: Start: 10-15-2020 Adult depression scr eening assessment Mindi Huntleycalf AIRCRAFT MAINTENANCE SUPERVISOR.REBECCA Work Phone: Start: 01-17-2018 Lipid 1996 panel - S connor or Plasma Mindi Proctor AIRCRAFT MAINTENANCE SUPERVISOR.REBECCA Work Phone: Plan of Treatment Date Care Activity Detail Author Start: 01-27-2026 Colonoscopy COLONOSCOPY [facility] Start: 01-27-2026 COLORECTAL CANCER SCREENING COLORECTAL CANCER SCREENING [facility] Start: 02-26-2024 BP Controlled (<130/80) BP Controlle d (<130/80) [facility] Start: 02-10-2024 Mammography Mammogram Screening [facility] Start: 01-01-2024 Urine microalbumin profile [facility] Start: 10-10-2023 ANNUAL PCP TEAM STRATEGIC PLANNING CONSULTANT JANIA DISEASE VISIT ANNUAL PCP TEAM CHRONIC DISEASE VISIT [facility] Start: 10-10-2023 BP CONTROLLED (<130/80) BP CONTROLLE D (<130/80) [facility] Start: 09-16-2023 ANNUAL PCP TEAM STRATEGIC PLANNING CONSULTANT JANIA DISEASE VISIT ANNUAL PCP TEAM CHRONIC DISEASE VISIT [facility] Start: 09-16-2023 BP CONTROLLED (<130/80) BP CONTROLLE D (<130/80) [facility] Start: 09-12-2023 BP CONTROLLED (<130/80) BP CONTROLLE D (<130/80) [facility] Start: 08-11-2023 ANNUAL PCP TEAM STRATEGIC PLANNING CONSULTANT JANIA DISEASE VISIT ANNUAL PCP TEAM CHRONIC DISEASE VISIT [facility] Start: 08-11-2023 BP CONTROLLED (<130/80) BP CONTROLLE D (<130/80) [facility] Start: 06-03-2023 ADVANCE DIRECTIVE DISCUSSION ADVANCE DIRECTIVE DISCUSSION [facility] Immunizations Immunization Date Immunization Notes Care Provider Fa meghna 03-20-2022 influenza virus vacc ine, unspecified formulation Mindi Proctor AIRCRAFT MAINTENANCE SUPERVISOR.NURSE CLINICAL Work Phone: [facility] 05-23-2020 pneumococcal polysaccharide vaccine, 23 valent Alicia Knoble AIRCRAFT MAINTENANCE SUPERVISOR.NURSE CLINICAL Work Phone: [facility] Work Phone: 05-13-2019 pneumococcal conjuga te vaccine, 13 valent Mindi Proctor AIRCRAFT MAINTENANCE SUPERVISOR.NURSE CLINICAL Work Phone: [facility] 03-18-2019 influenza, high dose seasonal, preservative-free Mindi Proctor AIRCRAFT MAINTENANCE SUPERVISOR.NURSE CLINICAL Work Phone: [facility] 04-04-2018 influenza, injectabl e, quadrivalent, contains preservative Mindi Proctor AIRCRAFT MAINTENANCE SUPERVISOR.NURSE CLINICAL Work Phone: [facility] 03-26-2016 influenza, injectabl e, quadrivalent, preservative free Mindi Nely AIRCRAFT MAINTENANCE SUPERVISOR.NURSE CLINICAL Work Phone: [facility] Work Phone: 03-20-2015 influenza, injectabl e, quadrivalent, preservative free Mindi Proctor AIRCRAFT MAINTENANCE SUPERVISOR.NURSE CLINICAL Work Phone: [facility] 12-31-2013 tetanus toxoid, redu leticia diphtheria toxoid, and acellular pertussis vaccine, adsorbed Mindi Nely AIRCRAFT MAINTENANCE SUPERVISOR.NURSE CLINICAL Work Phone: [facility] 03-23-2010 influenza virus vacc ine, unspecified formulation Mindi Nely AIRCRAFT MAINTENANCE SUPERVISOR.NURSE CLINICAL Work Phone: [facility] Work Phone: 05-17-2009 novel influenza-H1N1 -09, all formulations Mindi Nely AIRCRAFT MAINTENANCE SUPERVISOR.NURSE CLINICAL Work Phone: [facility] Work Phone: 04-21-2006 influenza virus vacc ine, unspecified formulation Mindi Proctor AIRCRAFT MAINTENANCE SUPERVISOR.NURSE CLINICAL Work Phone: [facility] Work Phone: 03-04-2004 influenza virus vacc ine, whole virus Mindi Nely AIRCRAFT MAINTENANCE SUPERVISOR.NURSE CLINICAL Work Phone: [facility] Work Phone: 02-14-2003 diphtheria and tetan us toxoids, adsorbed for pediatric use Mindi Nely AIRCRAFT MAINTENANCE SUPERVISOR.NURSE CLINICAL Work Phone: [facility] Work Phone: Payers Date Payer Category Payer Medicare MEDICARE MEDICAR E A AND B [id number] 2019-Present [phone] [address] [address] [place] [address] Medicare [id number] 2019 Medicare [id number] 2019 Medicare [id number] 2019 Unknown MMO MMO MEDICARE SUPPLEMENT [id number] 2019-Present [phone] [address] [place] [address] Indemnity [id number] Social History Date Type Detail Facility Start: 03-30-2011 Tobacco smoking stat us IDIS Never smoked tobacco [facility] Start: 03-30-2011 Tobacco use and exposure Smoke less tobacco non-user [facility] Start: 01-13-2022 End: 2023 Alcohol intake Current non-drinker of alcohol (finding) [facility] Start: 01-01-2020 End: 08-03-2022 History SDOH Social Connections Phone 5 [facility] Start: 01-01-2020 End: 08-03-2022 History SDOH Social Connections Rastafari 3 [facility] Start: 01-01-2020 End: 08-03-2022 History SDOH Social Connections Membership 1 [facility] Start: 01-01-2020 End: 08-03-2022 History SDOH Social Connections Living 4 [facility] Start: 01-01-2020 History SDOH Physica l Activity MPS 12 [facility] Start: 01-01-2020 End: 08-03-2022 History SDOH Transport Med 2 [facility] Start: 01-01-2020 Education 13 [facility] Start: 1955 Sex Assigned At Female C [facility] Start: 01-03-2022 End: 01-17-2022 Exposure to SARS-CoV-2 (event) Not sure [facility] Work Phone: Start: 08-03-2022 History SDOH Alcohol Std Drinks 0 [facility] Start: 08-03-2022 End: 10-09-2022 History of Social function [facility] Start: 08-03-2022 End: 10-09-2022 Social connection and isolation panel [facility] Do you belong to any clubs or organizations such as congregation groups, unions, fraternal or athletic groups, or school groups? Yes [facility] Are you now , , , , never or living with a partner? [facility] How often to you hav e a drink containing alcohol? Never [facility] How many standard dr inks containing alcohol do you have on a typical day? Patient does not drink [facility] Do you feel stress - tense, restless, nervous, or anxious, or unable to sleep at night because your mind is troubled all the time - these days [OSQ] Not at all [facility] (I/We) worried wheth er (my/our) food would run out before (I/we) got money to buy more. Never true [facility] In the past 12 month s, was there a time when you were not able to pay the mortgage or rent on time? No [facility] Start: 10-10-2020 Gender identity Identifies as female gender (finding) [facility] Clinical Notes 01-27-2021 to 06-19-2023 Jacki Price, RDMS - 03/13/2023 11:30 AM Madison Emilie, Mammrafal Tech - 03/13/2023 11:00 AM Anni Baron LPN - 02/26/2023 12:23 PM Fouzia Stallings PA-C - 2023 11:17 AM EDT Note Date & Type Note Facility 06-19-2023 Note HNO ID: [id number] Author: ANNI CANELA LPN Service: ? Author Type: LICENSED NURSE Type: Progress Notes Filed: 06/19/2023 07:16 Note Text: Scan on 06/18/2023 3:37 PM by ProviderKofi PA-C: Consultation - [facility] 06-14-2023 Note HNO ID: [id number] Author: ANNI CANELA LPN Service: ? Author Type: LICENSED NURSE Type: Progress Notes Filed: 06/14/2023 13:18 Note Text: Scan on 06/14/2023 11:56 AM by ProviderKofi PA-C: Consultation - Cardiology [facility] 06-05-2023 Note HNO ID: [id number] Author: Alicia Hamlin APRN.NURSE CLINICAL Service: ? Author Type: Nurse Practitioner Type: Progress Notes Filed: 06/05/2023 1:14 PM Note Text: Chief Complaint Patient presents with: Hospital F/U [facility] Richelle Cardozo is a 68 year old female who presents here today for Above Complaints.. Patient presents for hospital follow up. Patient was hospitalized with bilateral pneumonia. Imaging completed at [facility] showed a right kidney mass which is suspicious for renal carcinoma. Patient has follow up appointments with oncology and urology. Patient also has follow up with cardiology for an abnormal echo. Past medical history, appointments, medications, allergies reviewed. [...] disease) stage 3, GFR 30-59 ml/min ([facility]LY [facility]) 2013 Diverticulosis of colon 08/04/2005 Duodenitis without [...] REDNESS AND ITCHING Sulfa (Sulfonamide * Rash Erythromycin GI Upset Augmentin [Amoxicil* GI Upset Cephalexin Intolerance Sore mouth and tongue Doxycycline Unknown Headache Dust Mites Unknown Grass Pollen Unknown Lisinopril Cough Trees Unknown Current Medications Current Outpatient Medications on File Prior to Visit Medication Sig metoprolol tartrate, short acting, (LOPRESSOR) 25 mg tablet Take 1 tablet by mouth every 12 hours. ondansetron orally disintegrating (ZOFRAN ODT) 4 mg disintegrating tablet Take 1 tablet by mouth every 12 hours as needed for nausea/vomiting. benzonatate (TESSALON PERLE) 100 mg capsule Take 2 capsules by mouth three times a day as needed. cyclobenzaprine (FLEXERIL) 10 mg tablet Take 1 tablet by mouth three times a day as needed for muscle spasm. L.acidophil/L.plantar/Bifido 7 ([employer] ADULT ORAL) Take [...] 50 mcg (2,000 unit) cap Take 1 tabl (more content not included)... [facility] 05-25-2023 Note HNO ID: [id number] Author: Anni Canela LPN Service: ? Author Type: LICENSED NURSE Type: Progress Notes Filed: 05/25/2023 9:55 AM Note Text: Scan on 05/25/2023 8:14 AM by Kofi Lilly PA-C: Consultation - Emergency Medicine Scan on 05/25/2023 2:49 AM by Kofi Lilly PA-C: CT Scan Scan on 05/25/2023 2:38 AM by Kofi Lilly PA-C: CT Scan [facility] 05-22-2023 Note HNO ID: [id number] Author: Mohini Davidson APRN.NURSE CLINICAL Service: ? Author Type: Nurse Practitioner Type: Progress Notes Filed: 05/22/2023 10:05 AM Note Text: Subjective The history is provided by the patient. No aerodynamicist was used. JAZMINE Cardozo is a 68 [...] disease) stage 3, GFR 30-59 ml/min ([facility]LY [facility]) 2013 Diverticulosis of colon 08/04/2005 Duodenitis without [...] have confirmed and edited as necessary, the [facility] Review of Systems Constitutional: Negative for [...] of concepts an (more content not included)... [facility] 03-13-2023 Note HNO ID: [id number] Author: Jacki Price RDMS Service: ? Author Type: Environmental Engineering Intern Type: Progress Notes Filed: 03/13/2023 1:40 PM [...] RDMS RVT March 13, 2023 1:40 PM [facility] 03-13-2023 Note HNO ID: [id number] Author: Emilie Cordon Mammo Tech Service: ? Author Type: Metal Hardener Type: Progress Notes Filed: 03/13/2023 11:43 AM [...] Estefania Prescott March 13, 2023 10:56 AM [facility] 03-13-2023 History of Present illness [...] 2023 1:40 PM documented in this encounter [facility] 03-13-2023 History of Present illness Narrative Radiology [...] 2023 10:56 AM documented in this encounter [facility] 02-27-2023 Note HNO ID: [id number] Author: Mireille Valladares Ma Service: ? Author Type: ? Type: Progress Notes Filed: 03/01/2023 10:25 AM Note Text: Scan on 02/27/2023 3:29 AM by ProviderKofi PA-C: Consultation - Rheumatology [facility] 02-26-2023 Note HNO ID: [id number] Author: Anni Canela LPN Service: ? Author Type: ? Type: Progress Notes Filed: 02/26/2023 12:40 PM Note Text: Scan on 02/26/2023 7:37 AM by Kofi Lilly PA-C: Miscellaneous Lab [facility] 02-26-2023 History of Present illness Narrative Scan on 02/26/2023 7:37 AM by Kofi Lilly PA-C: Miscellaneous Lab documented in this encounter [facility] 2023 Note HNO ID: [id number] Author: Fouzia Quiroz PA-C Service: ? Author Type: Physician Cardiology Technician Type: Progress Notes Filed: 2023 11:22 AM Note Text: This note was created using Flat.to. Luli Cardozo is a 68 year old [...] disease) stage 3, GFR 30-59 ml/min ([facility]LY [facility]) 2013 Diverticulosis of colon 08/04/2005 Duodenitis without [...] 06/27/2013 Seborrheic Keratosis 11/07/2009 Sjogren's disease (FORMERLY [facility]) Solar lentigo 11/07/2009 Current Outpatient Medications Medication [...] hx cluster headache (more content not included)... [facility] 2023 History of Present illness Narrative This note was created using Bringgriter. Luli Cardozo is a 68 year old [...] disease) stage 3, GFR 30-59 ml/min ([facility]LY [facility]) 2013 Diverticulosis of colon 08/04/2005 Duodenitis without [...] Fouzia Quiroz PA-C documented in this encounter [facility] 2023 Instructions Fouzia Quiroz PA-C - 2023 10:54 AM EDT Flonase Plain mucinex otc If not improving in 3-5 days see pcp. documented in this encounter [facility] 02-12-2023 Miscellaneous Notes February 13, 2023 PID: [id number] Richelle Cardozo [address] [place] [address] Dear Ms. Cardozo, Your recent breast imaging exam on 02/09/2023 showed a possible finding that requires additional imaging studies for a complete evaluation. Most such findings are probably benign (not cancer). If you have a healthcare provider who ordered/prescribed your screening mammogram: Please call [phone] or [phone]: [phone] to schedule an appointment for your additional [...] and reports are kept on file at [facility] as part of your permanent medical record, and are available for your continuing care. Thank you for allowing us to help in meeting your health care needs. Sincerely, Dr. Ramirez Interpreting Radiologist [facility] (Additional imaging) documented in this encounter [facility] 02-09-2023 Note HNO ID: [id number] Author: Monika Nguyen Mammo Tech Service: ? Author Type: Metal Hardener Type: Progress Notes Filed: 02/09/2023 10:16 AM [...] DATA: Not applicable SIGNED BY: Monika Nguyen [employer] February 09, 2023 9:59 AM [facility] 02-09-2023 History of Present illness Narrative Radiology [...] DATA: Not applicable SIGNED BY: Monika Nguyen [employer] February 09, 2023 9:59 AM documented in this encounter [facility] 11-30-2022 Note HNO ID: [id number] Author: Anni Canela LPN Service: ? Author Type: ? Type: Progress Notes Filed: 11/30/2022 9:15 AM Note Text: Scan on 11/28/2022 11:31 AM by External Provider, PA-C: Consultation - Nephrology/Renal [facility] 11-30-2022 History of Present illness Narrative Scan on 11/28/2022 11:31 AM by External Provider, PA-C: Consultation - Nephrology/Renal documented in this encounter [facility] 11-24-2022 Note HNO ID: [id number] Author: Kimberly Fields MA Service: ? Author Type: Manager Of Customer Billing Type: Progress Notes Filed: 11/25/2022 8:46 AM Note Text: Scan on 11/22/2022 8:10 AM by External Provider, PA-C: Chemistry Scan on 11/22/2022 7:35 AM by External Provider, PRASHANTH: Hematology Kimberly Fields MA [facility] 11-24-2022 History of Present illness Narrative Scan on 11/22/2022 8:10 AM by External Provider, ROBERTC: Chemistry Scan on 11/22/2022 7:35 AM by External Provider, PRASHANTH: Hematology Kimberly Fields MA documented in this encounter [facility] 11-10-2022 Note HNO ID: [id number] Author: RT Charmaine(Jennie) Service: Nuclear Medicine Author Type: Technologist Type: [...] IV DATA: Not applicable SIGNED BY: RT Charmaine(Jennie) November 10, 2022 12:13 PM [facility] 10-09-2022 Note HNO ID: [id number] Author: Lazara Mcnulty PA-C Service: ? Author Type: Physician Cardiology Technician Type: Progress Notes Filed: 10/09/2022 1:49 PM [...] disease) stage 3, GFR 30-59 ml/min (FORMERLY [facility]) 2013 Diverticulosis of colon 08/04/2005 Duodenitis without [...] Never Vaping Us (more content not included)... [facility] 10-09-2022 Instructions Lazara Mcnulty PA-C - 10/09/2022 1:38 PM EDT Repeat CXR in about 1 month. Return if symptoms change or worsen. documented in this encounter [facility] 10-09-2022 History of Present illness Narrative Chief [...] disease) stage 3, GFR 30-59 ml/min (FORM[facility]LY [facility]) 2013 Diverticulosis of colon 08/04/2005 Duodenitis without [...] Lazara Mcnulty PA-C documented in this encounter [facility] 10-09-2022 Miscellaneous Notes Pt notified of same. Pt will keep ov. Anni Canela LPN Yes. I forgot we had [...] Lazara Mcnulty PA-C documented in this encounter [facility] 10-06-2022 Note HNO ID: [id number] Author: RT Lorenza(R) Service: Radiology Author Type: [...] RT Lorenza(R) October 06, 2022 11:09 AM [facility] 09-15-2022 Note HNO ID: [id number] Author: Lazara Mcnulty PA-C Service: ? Author Type: Physician Cardiology Technician Type: Progress Notes Filed: 09/15/2022 9:14 AM [...] disease) stage 3, GFR 30-59 ml/min (FORMERLY [facility]) 2013 Diverticulosis of colon 08/04/2005 Duodenitis without [...] 1 capsule by (more content not included)... [facility] 09-15-2022 History of Present illness Narrative Chief [...] disease) stage 3, GFR 30-59 ml/min (FORMERLY [facility]) 2013 Diverticulosis of colon 08/04/2005 Duodenitis without [...] 06/27/2013 Seborrheic Keratosis 11/07/2009 Sjogren's disease (FORMERLY [facility]) Solar lentigo 11/07/2009 Previous Surgical History PAST [...] Lazara Mcnulty PA-C documented in this encounter [facility] 09-11-2022 Note HNO ID: [id number] Author: Fouzia Quiroz PA-C Service: ? Author Type: Physician Cardiology Technician Type: Progress Notes Filed: 09/11/2022 11:45 AM Note Text: This note was created using Flat[employer]. Luli Cardozo is a 67 year old female. HPI Patient presents with a chief complaint of cough and chest congestion for 10 days. She has had fevers off and on. Temp here 99.6. She has used Robitussin [id number] without relief. Her grandkids were sick recently [...] disease) stage 3, GFR 30-59 ml/min (FORM[facility]LY [facility]) 2013 Diverticulosis of colon 08/04/2005 Duodenitis without [...] Aortic valve replacemen (more content not included)... [facility] 09-11-2022 Note HNO ID: [id number] Author: RT Lorenza(R) Service: Radiology Author Type: [...] RT Lorenza(R) September 11, 2022 10:51 AM [facility] 09-11-2022 History of Present illness Narrative This note was created using Bring[employer]. Subjective Ricehlle Cardozo is a 67 year old female. HPI Patient presents with a chief complaint of cough and chest congestion for 10 days. She has had fevers off and on. Temp here 99.6. She has used Robitussin [id number] without relief. Her grandkids were sick recently [...] disease) stage 3, GFR 30-59 ml/min (FORM[facility]LY [facility]) 2013 Diverticulosis of colon 08/04/2005 Duodenitis without [...] Fouzia Quiroz PA-C documented in this encounter [facility] 09-07-2022 Note HNO ID: [id number] Author: Kimberly Fields MA Service: ? Author Type: Manager Of Customer Billing Type: Progress Notes Filed: 09/07/2022 4:19 PM Note Text: Scan on 09/02/2022 12:53 AM by External Provider: Consultation - Orthopedics Kimberly Fields MA [facility] 09-07-2022 History of Present illness Narrative Scan on 09/02/2022 12:53 AM by External Provider: Consultation - Orthopedics Kimberly Fields MA documented in this encounter [facility] 08-10-2022 Note HNO ID: [id number] Author: Alicia Hamlin APRN.REBECCA Service: ? Author [...] Concerns with sexual function: Not at all [place] anxious, stressed, angry, irritable, lonely, isolated, or [...] disease) stage 3, GFR 30-59 ml/min (FORMERLY [facility]) 2013 Diverticulosis of colon 08/04/2005 Duodenitis without [...] SPEC WHEN PFRMD (more content not included)... [facility] 08-10-2022 Instructions Alicia Hamlin APRN.CNP - 08/10/2022 4:49 PM EST Will notify patient of labs ordered once results received from pattern drafter Continue current medications Continue follow up with specialists as scheduled Follow up in 1 year documented in this encounter [facility] 08-10-2022 History of Present illness Narrative Richelle Cardozo is a 67 year old female here for a Medicare Initial Annual Wellness Visit Health Risk Assessment In general, health is: Very good Concerns with balance: Not at all Concerns with teeth or dentures: Not at all Concerns with sexual function: Not at all [place] anxious, stressed, angry, irritable, lonely, isolated, or [...] disease) stage 3, GFR 30-59 ml/min (FORM[facility]LY [facility]) 2013 Diverticulosis of colon 08/04/2005 Duodenitis without [...] diet of 1000 mg/day for under 50, 6706-3515 mg/day for 50+ - Discussed need and [...] diet of 1000 mg/day for under 50, 7801-1238 mg/day for 50+ - Discussed need and benefit for weight loss. BMI 25.27 kg/(m^2) - Depression screening tool completed and reviewed with patient. Based on score and interview, patient is not at risk for depression and recommended no further intervention at this time. - Follow up for annual exam in one year Alicia Hamlin APRN.REBECCA documented in this encounter [facility] 07-13-2022 Miscellaneous Notes Patient is scheduled. Kimberly [...] Kimberly Fields MA documented in this encounter [facility] 07-10-2022 Note HNO ID: [id number] Author: Curtis Head MA Service: ? Author Type: Manager Of Customer Billing Type: Progress Notes Filed: 07/11/2022 9:48 AM Note Text: POPULATION HEALTH NAVIGATION OUTREACH Action/FYI Spoke to Aleida loren to schedule medicare wellness after 4:30. ANNUAL [...] Head MA July 10, 2022 2:04 PM [facility] 07-10-2022 History of Present illness Narrative POPULATION [...] 2022 2:04 PM documented in this encounter [facility] 07-10-2022 Note Patient Outreach (KEYANNA TNAV) RICHELLE CARDOZO ([id number]) 1955 F Date Time Provider Department 07/10/22 CURTIS HEAD During your visit today, we recorded the following information about you: Curtis Head MA 07/11/2022 9:48 AM Signed POPULATION HEALTH NAVIGATION OUTREACH Action/FYI Spoke to [...] for gynecological ex (more content not included)... [facility] 02-13-2022 Miscellaneous Notes Pt notified of same. Anni Canela LPN Prescription sent. Patient started having Covid Symptoms last 02/09/2022. Patient tested positive for Covid on Home test. Patient states that most of her symptoms are gone. Patient states that the only symptom lingering is nausea. Patient asking if a prescription for nausea can be sent to [facility]? Please review and advise, Shea Rain RN documented in this encounter [facility] 01-13-2022 Miscellaneous Notes January 13, 2022 PID: [id number] Richelle Cardozo [address] [place] [address] Dear Ms. Cardozo, Your recent breast imaging exam on 01/13/2022 showed a possible finding that requires additional imaging studies for a complete evaluation. Most such findings are probably benign (not cancer). If you have a healthcare provider who ordered/prescribed your screening mammogram: Please call [phone] or [phone] to schedule an appointment for your additional [...] and reports are kept on file at [facility] as part of your permanent medical record, and are available for your continuing care. Thank you for allowing us to help in meeting your health care needs. Sincerely, Dr. Wagner Interpreting Radiologist [facility] (Additional imaging) documented in this encounter [facility] 01-13-2022 History of Present illness Narrative Radiology [...] 2022 7:30 AM documented in this encounter [facility] 01-13-2022 History of Present illness Narrative Aleida is a 66 year old who presents for an annual gynecologic exam without complaints. Postmenopausal: Yes HRT use: No. Last Pap: 2016 normal HPV: 2017 negative History of abnormal pap: No Last mammogram: 2021 pending History of abnormal mammogram: No Sexually active: No OB History T2 L2 SAB0 IAB0 Ectopic1 Multiple0 Live Births0 Surgical Scrub Tech History LMP: Postmenopausal Age at Menarche: Age at First : Age at Menopause: Surgical Scrub Tech History Comments: Sexual Activity: Not Currently; No [...] disease) stage 3, GFR 30-59 ml/min (FORM[facility]LY [facility]) 2013 Diverticulosis of colon 08/04/2005 Duodenitis without [...] external genitalia normal, normal Bartholin's glands, urethra, [place]'s glands, no vulvar lesions, no cervical lesions, [...] up to date- done in 2020 by General Distillery Worker 2) Follow up one year or sooner as needed Mindi Mckay APRN.NURSE CLINICAL documented in this encounter [facility] documented as of this encounter (statuses as of 01/13/2022) [facility] History of Past illness Narrative* Problem Noted Date Resolved Date Polyp of colon 01/27/2021 01/27/2021 Encounter for gynecological examination without abnormal finding 10/21/2015 [facility] [...] of this encounter (statuses as of 01/13/2022) [facility] History of Past illness Narrative* Problem Noted Date Resolved Date Polyp of colon 01/27/2021 01/27/2021 Encounter for gynecological examination without abnormal finding 10/21/2015 12/02/2015 [facility] Family history of colon cancer [...] of this encounter (statuses as of 01/14/2022) [facility] History of Past illness Narrative* Problem Noted Date Resolved Date Polyp of colon 01/27/2021 01/27/2021 Encounter for gynecological examination without abnormal finding 10/21/2015 12/02/2015 Overview: [facility]. Family history of colon cancer [...] of this encounter (statuses as of 01/17/2022) [facility] History of Past illness Narrative* Problem Noted Date Resolved Date Polyp of colon 01/27/2021 01/27/2021 Encounter for gynecological examination without abnormal finding 10/21/2015 12/02/2015 [facility] Family history of colon cancer 01/07/2015 [...] of this encounter (statuses as of 02/13/2022) [facility] History of Past illness Narrative* Problem Noted Date Resolved Date Polyp of colon 01/27/2021 01/27/2021 Encounter for gynecological examination without abnormal finding 10/21/2015 12/02/2015 [facility] Family history of colon cancer [...] of this encounter (statuses as of 04/05/2022) [facility] History of Past illness Narrative* Problem Noted Date Resolved Date Polyp of colon 01/27/2021 01/27/2021 Encounter for gynecological examination without abnormal finding 10/21/2015 12/02/2015 [facility] Family history of colon cancer [...] of this encounter (statuses as of 07/11/2022) [facility] History of Past illness Narrative* Problem Noted Date Resolved Date Polyp of colon 01/27/2021 01/27/2021 Encounter for gynecological examination without abnormal finding 10/21/2015 12/02/2015 Overview: [facility]. Family history of colon cancer 01/07/2015 [...] of this encounter (statuses as of 07/13/2022) [facility] History of Past illness Narrative* Problem Noted Date Resolved Date Polyp of colon 01/27/2021 01/27/2021 Encounter for gynecological examination without abnormal finding 10/21/2015 12/02/2015 [facility] Family history of colon cancer [...] of this encounter (statuses as of 08/11/2022) [facility] History of Past illness Narrative* Problem Noted Date Resolved Date Polyp of colon 01/27/2021 01/27/2021 Encounter for gynecological examination without abnormal finding 10/21/2015 12/02/2015 [facility] Family history of colon cancer [...] of this encounter (statuses as of 09/08/2022) [facility] History of Past illness Narrative* Problem Noted Date Resolved Date Polyp of colon 01/27/2021 01/27/2021 Encounter for gynecological examination without abnormal finding 10/21/2015 12/02/2015 [facility] Family history of colon cancer [...] of this encounter (statuses as of 09/11/2022) [facility] History of Past illness Narrative* Problem Noted Date Resolved Date Polyp of colon 01/27/2021 01/27/2021 Encounter for gynecological examination without abnormal finding 10/21/2015 12/02/2015 [facility] Family history of colon cancer [...] of this encounter (statuses as of 09/15/2022) [facility] History of Past illness Narrative* Problem Noted Date Resolved Date Polyp of colon 01/27/2021 01/27/2021 Encounter for gynecological examination without abnormal finding 10/21/2015 12/02/2015 [facility] Family history of colon cancer [...] of this encounter (statuses as of 10/09/2022) [facility] History of Past illness Narrative* Problem Noted Date Resolved Date Polyp of colon 01/27/2021 01/27/2021 Encounter for gynecological examination without abnormal finding 10/21/2015 12/02/2015 [facility] Family history of colon cancer [...] of this encounter (statuses as of 10/09/2022) [facility] History of Past illness Narrative* Problem Noted Date Resolved Date Polyp of colon 01/27/2021 01/27/2021 Encounter for gynecological examination without abnormal finding 10/21/2015 12/02/2015 Overview: [facility]. Family history of colon cancer [...] of this encounter (statuses as of 11/25/2022) [facility] History of Past illness Narrative* Problem Noted Date Resolved Date Polyp of colon 01/27/2021 01/27/2021 Encounter for gynecological examination without abnormal finding 10/21/2015 12/02/2015 [facility] Family history of colon cancer 01/07/2015 [...] of this encounter (statuses as of 11/30/2022) [facility] History of Past illness Narrative* Problem Noted Date Diagnosed Date Resolved Date Polyp of colon 01/27/2021 01/27/2021 Encounter for gynecological examination without abnormal finding 10/21/2015 12/02/2015 [facility] Family history of colon cancer [...] of this encounter (statuses as of 02/13/2023) [facility] History of Past illness Narrative* Problem Noted Date Diagnosed Date Resolved Date Polyp of colon 01/27/2021 01/27/2021 Encounter for gynecological examination without abnormal finding 10/21/2015 12/02/2015 [facility] Family history of colon cancer [...] of this encounter (statuses as of 02/13/2023) [facility] History of Past illness Narrative* Problem Noted Date Diagnosed Date Resolved Date Polyp of colon 01/27/2021 01/27/2021 Encounter for gynecological examination without abnormal finding 10/21/2015 12/02/2015 [facility] Family history of colon cancer [...] of this encounter (statuses as of 02/14/2023) [facility] History of Past illness Narrative* Problem Noted Date Diagnosed Date Resolved Date Polyp of colon 01/27/2021 01/27/2021 Encounter for gynecological examination without abnormal finding 10/21/2015 12/02/2015 [facility] Family history of colon cancer 01/07/2015 [...] of this encounter (statuses as of 2023) [facility] History of Past illness Narrative* Problem Noted Date Diagnosed Date Resolved Date Polyp of colon 01/27/2021 01/27/2021 Encounter for gynecological examination without abnormal finding 10/21/2015 12/02/2015 Overview: [facility]. Family history of colon cancer [...] of this encounter (statuses as of 02/26/2023) [address]26-2021 History of Past illness Narrative* Problem Noted Date Diagnosed Date Resolved Date Polyp of colon 01/27/2021 01/27/2021 Encounter for gynecological examination without abnormal finding 10/21/2015 12/02/2015 [facility] Family history of colon cancer [...] of this encounter (statuses as of 04/08/2023) [facility] History of Past illness Narrative* Problem Noted Date Diagnosed Date Resolved Date Polyp of colon 01/27/2021 01/27/2021 Encounter for gynecological examination without abnormal finding 10/21/2015 12/02/2015 [facility] Family history of colon cancer [...] of this encounter (statuses as of 04/08/2023) [facility] History of Past illness Narrative* Problem Noted Date Diagnosed Date Resolved Date Polyp of colon 01/27/2021 01/27/2021 Encounter for gynecological examination without abnormal finding 10/21/2015 12/02/2015 Overview: [facility]. Family history of colon cancer 01/07/2015 [...] of this encounter (statuses as of 04/08/2023) [facility] note* Diagnosis Encounter for gynecological examination (general) (routine) without abnormal findings- Primary Encounter for screening mammogram for breast cancer [facility] Diagnosis Abnormal mammogram- Primary Abnormal mammogram, unspecified [facility]* Diagnosis Encounter for screening mammogram for breast cancer [facility]* Diagnosis Medicare annual wellness visit, initial- Primary Routine general medical examination at a health care facility Essential hypertension Unspecified essential hypertension Mixed hyperlipidemia Anemia of chronic disease Anemia of other chronic disease Stage 3a chronic kidney disease (HCC) Celiac disease Well adult exam Routine general medical examination at a health care facility [facility] Diagnosis Bacterial pneumonia- Primary Bacterial pneumonia, unspecified [facility] Diagnosis Bacterial pneumonia- Primary Bacterial pneumonia, unspecified [facility] Diagnosis Bacterial pneumonia- Primary Bacterial pneumonia, unspecified [facility] Diagnosis Bacterial pneumonia- Primary Bacterial pneumonia, unspecified [facility]* Diagnosis Abnormal mammogram- Primary Abnormal mammogram, unspecified [facility]* Diagnosis Acute pansinusitis, recurrence not specified- Primary [facility]* Diagnosis Encounter for screening mammogram for breast cancer [facility]* Diagnosis Abnormal mammogram Abnormal mammogram, unspecified [facility] Diagnosis Abnormal mammogram Abnormal mammogram, unspecified documented in this encounter [facility] for referral (narrative)* Diagnostic Procedure Only (Routine) - Pending Review Specialty Diagnoses / Procedures Referred By Gal trevion Referred To Contact [facility] Diagnoses Encounter for screening mammogram for breast cancer Procedures SUSHIL SCREENING SCREENING MAMMOGRAPHY BI 2-VIEW BREAST INC CAD Mindi Mckay APRN.NURSE CLINICAL [address] [place] [address] [facility] [address] [place] [address] Referral ID Status Reason Start Date Expiration Date Visits Requested Visits Authorized [id number] Pending Review Auto-Generat ed Referral 01/13/2022 02/12/2023 1 1 [facility] for referral (narrative)* Diagnostic Procedure Only (Routine) - Authorized Specialty Diagnoses / Procedures Referred By Gal trevino Referred To Contact [facility] Diagnoses Abnormal mammogram Procedures US BREAST LTD RT US BREAST UNI REAL TIME WITH IMAGE LIMITED Mindi Mckay APRN.NURSE CLINICAL [address] [place] [address] [facility] [address] [place] [address] Referral ID Status Reason Start Date Expiration Date Visits Requested Visits Authorized [id number] Authorized Auto-Generat ed Referral 01/13/2022 02/12/2023 1 1 * Diagnostic Procedure Only (Routine) - Authorized Specialty Diagnoses / Procedures Referred By Gal trevino Referred To Contact [facility] Diagnoses Abnormal mammogram Procedures SUSHIL DIAGNOSTIC RT DIAGNOSTIC MAMMOGRAPHY COMPUTER-AIDED DETCJ UNI Mindi Mckay APRN.NURSE CLINICAL [address] [place] [address] [facility] [address] [place] [address] Referral ID Status Reason Start Date Expiration Date Visits Requested Visits Authorized [id number] Authorized Auto-Generat ed Referral 01/13/2022 02/12/2023 1 1 [facility] for referral (narrative)* Diagnostic Procedure Only (Routine) - Closed Specialty Diagnoses / Procedures Referred By Gal t Referred To Contact [facility] Diagnoses Encounter for screening mammogram for breast cancer Procedures SUSHIL SCREENING SCREENING MAMMOGRAPHY BI 2-VIEW BREAST INC CAD Mindi Mckay APRN.NURSE CLINICAL [address] [place] [address] [facility] [address] [place] [address] Referral ID Status Reason Start Date Expiration Date V isits Requested Visits Authorized [id number] Closed Auto-Generate d Referral 01/04/2021 02/03/2022 1 1 [facility] for referral (narrative)* Outpatient Procedure (Routine) - Pending Review Specialty Diagnoses / Procedures Referred By Gal t Referred To [facility] Diagnoses Medicare annual wellness visit, initial Procedures ECG COMPLETE ECG ROUTINE ECG W/LEAST 12 LDS W/I&R Alicia Hamlin APRN.NURSE CLINICAL [address] [place] [address] [facility] [place] [address] [place] [address] Referral ID Status Reason Start Date Expiration Date Visits Requested Visits Authorized [id number] Pending Review Auto-Generat ed Referral 08/10/2022 08/10/2023 1 1 [facility] for referral (narrative)* Diagnostic Procedure Only (Routine) - Pending Review Specialty Diagnoses / Procedures Referred By Gal t Referred To Contact [facility] Diagnoses Abnormal mammogram Procedures US BREAST LTD RIGHT US BREAST UNI REAL TIME WITH IMAGE LIMITED Mindi Mckay APRN.NURSE CLINICAL [address] [place] [address] [facility] [address] [place] [address] Referral ID Status Reason Start Date Expiration Date Visits Requested Visits Authorized [id number] Pending Review Auto-Generat ed Referral 02/13/2023 03/14/2024 1 1 * Diagnostic Procedure Only (Routine) - Authorized Specialty Diagnoses / Procedures Referred By Gal t Referred To Contact [facility] Diagnoses Abnormal mammogram Procedures SUSHIL DIAGNOSTIC RIGHT DIAGNOSTIC MAMMOGRAPHY COMPUTER-AIDED DETCJ UNI Mindi Mckay APRN.NURSE CLINICAL [address] [place] [address] [facility] [address] [place] [address] Referral ID Status Reason Start Date Expiration Date Visits Requested Visits Authorized [id number] Authorized Auto-Generat ed Referral 02/13/2023 03/14/2024 1 1 [facility] for referral (narrative)* Diagnostic Procedure Only (Routine) - Closed Specialty Diagnoses / Procedures Referred By Gal t Referred To Contact [facility] Diagnoses Encounter for screening mammogram for breast cancer Procedures SUSHIL SCREENING SCREENING MAMMOGRAPHY BI 2-VIEW BREAST INC CAD Mindi Mckay APRN.NURSE CLINICAL [address] [address] [facility] [address] [place] [address] Referral ID Status Reason Start Date Expiration Date V isits Requested Visits Authorized [id number] Closed Auto-Generate d Referral 01/13/2022 02/12/2023 1 1 [facility] for referral (narrative)* Diagnostic Procedure Only (Routine) - Closed Specialty Diagnoses / Procedures Referred By Gal t Referred To Contact [facility] Diagnoses Abnormal mammogram Procedures US BREAST LTD RIGHT US BREAST UNI REAL TIME WITH IMAGE LIMITED Mindi Mckay APRN.NURSE CLINICAL [address] [place] [address] [facility] [address] [place] [address] Referral ID Status Reason Start Date Expiration Date V isits Requested Visits Authorized [id number] Closed Auto-Generate d Referral 02/13/2023 03/14/2024 1 1 [facility] for visit Narrative* Diagnostic Procedure Only (Routine) - Closed Specialty Diagnoses / Procedures Referred By Gal t Referred To Contact [facility] Diagnoses Encounter for screening mammogram for breast cancer Procedures SUSHIL SCREENING SCREENING MAMMOGRAPHY BI 2-VIEW BREAST INC [facility] Mindi Mckay APRN.NURSE CLINICAL [address] [place] [address] [facility] [address] [place] [address] Referral ID Status Reason Start Date Expiration Date V isits Requested Visits Authorized [id number] Closed Auto-Generate d Referral 01/04/2021 02/03/2022 1 1 [facility] for visit Narrative* Diagnostic Procedure Only (Routine) - Closed Specialty Diagnoses / Procedures Referred By Gal trevino Referred To Contact [facility] Diagnoses Encounter for screening mammogram for breast cancer Procedures SUSHIL SCREENING SCREENING MAMMOGRAPHY BI 2-VIEW BREAST INC [facility] Mindi Mckay APRN.NURSE CLINICAL [address] [place] [address] [facility] [address] [place] [address] Referral ID Status Reason Start Date Expiration Date V isits Requested Visits Authorized [id number] Closed Auto-Generate d Referral 01/13/2022 02/12/2023 1 1 [facility] for visit Narrative* Diagnostic Procedure Only (Routine) - Closed Specialty Diagnoses / Procedures Referred By Gal t Referred To Contact [facility] Diagnoses Abnormal mammogram Procedures SUSHIL DIAGNOSTIC RIGHT DIAGNOSTIC MAMMOGRAPHY COMPUTER-AIDED DETCJ UNI Mindi Mckay APRN.NURSE CLINICAL [address] [place] [address] [facility] [address] [place] [address] Referral ID Status Reason Start Date Expiration Date V isits Requested Visits Authorized [id number] Closed Auto-Generate d Referral 02/13/2023 03/14/2024 1 1 [facility] Summary Purpose Family History No Family History [...] or prosecute any alcohol or drug abuse patient.[facility] the event this information is protected by the Federal Confidentiality of Alcohol and Drug Abuse Patient Records regulations: The Federal rules restrict any use of the information to criminally investigate or prosecute any alcohol or drug abuse patient.[facility] the event this information is protected by the Federal Confidentiality of Alcohol and Drug Abuse Patient Records regulations: The Federal rules restrict any use of the information to criminally investigate or prosecute any alcohol or drug abuse patient.[facility] the event this information is protected by the Federal Confidentiality of Alcohol and Drug Abuse Patient Records regulations: The Federal rules restrict any use of the information to criminally investigate or prosecute any alcohol or drug abuse patient.[facility] the event this information is protected by the Federal Confidentiality of Alcohol and Drug Abuse Patient Records regulations: The Federal rules restrict any use of the information to criminally investigate or prosecute any alcohol or drug abuse patient.[facility] the event this information is protected by the Federal Confidentiality of Alcohol and Drug Abuse Patient Records regulations: The Federal rules restrict any use of the information to criminally investigate or prosecute any alcohol or drug abuse patient.[facility] the event this information is protected by the Federal Confidentiality of Alcohol and Drug Abuse Patient Records regulations: The Federal rules restrict any use of the information to criminally investigate or prosecute any alcohol or drug abuse patient.[facility] the event this information is protected by the Federal Confidentiality of Alcohol and Drug Abuse Patient Records regulations: The Federal rules restrict any use of the information to criminally investigate or prosecute any alcohol or drug abuse patient.[facility] the event this information is protected by the Federal Confidentiality of Alcohol and Drug Abuse Patient Records regulations: The Federal rules restrict any use of the information to criminally investigate or prosecute any alcohol or drug abuse patient.[facility] the event this information is protected by the Federal Confidentiality of Alcohol and Drug Abuse Patient Records regulations: The Federal rules restrict any use of the information to criminally investigate or prosecute any alcohol or drug abuse patient.[facility] the event this information is protected by the Federal Confidentiality of Alcohol and Drug Abuse Patient Records regulations: The Federal rules restrict any use of the information to criminally investigate or prosecute any alcohol or drug abuse patient.[facility] the event this information is protected by the Federal Confidentiality of Alcohol and Drug Abuse Patient Records regulations: The Federal rules restrict any use of the information to criminally investigate or prosecute any alcohol or drug abuse patient.[facility] the event this information is protected by the Federal Confidentiality of Alcohol and Drug Abuse Patient Records regulations: The Federal rules restrict any use of the information to criminally investigate or prosecute any alcohol or drug abuse patient.[facility]In the event this information is protected by the Federal Confidentiality of Alcohol and Drug Abuse Patient Records regulations: The Federal rules restrict any use of the information to criminally investigate or prosecute any alcohol or drug abuse patient.[facility] the event this information is protected by the Federal Confidentiality of Alcohol and Drug Abuse Patient Records regulations: The Federal rules restrict any use of the information to criminally investigate or prosecute any alcohol or drug abuse patient.[facility]In the event this information is protected by the Federal Confidentiality of Alcohol and Drug Abuse Patient Records regulations: The Federal rules restrict any use of the information to criminally investigate or prosecute any alcohol or drug abuse patient.[facility] the event this information is protected by the Federal Confidentiality of Alcohol and Drug Abuse Patient Records regulations: The Federal rules restrict any use of the information to criminally investigate or prosecute any alcohol or drug abuse patient.[facility] the event this information is protected by the Federal Confidentiality of Alcohol and Drug Abuse Patient Records regulations: The Federal rules restrict any use of the information to criminally investigate or prosecute any alcohol or drug abuse patient.[facility] SpringfieldIn the event this information is protected by the Federal Confidentiality of Alcohol and Drug Abuse Patient Records regulations: The Federal rules restrict any use of the information to criminally investigate or prosecute any alcohol or drug abuse patient.[facility] SpringfieldIn the event this information is protected by the Federal Confidentiality of Alcohol and Drug Abuse Patient Records regulations: The Federal rules restrict any use of the information to criminally investigate or prosecute any alcohol or drug abuse patient.[facility]In the event this information is protected by the Federal Confidentiality of Alcohol and Drug Abuse Patient Records regulations: The Federal rules restrict any use of the information to criminally investigate or prosecute any alcohol or drug abuse patient.[facility]In the event this information is protected by the Federal Confidentiality of Alcohol and Drug Abuse Patient Records regulations: The Federal rules restrict any use of the information to criminally investigate or prosecute any alcohol or drug abuse patient.[facility] SpringfieldIn the event this information is protected by the Federal Confidentiality of Alcohol and Drug Abuse Patient Records regulations: The Federal rules restrict any use of the information to criminally investigate or prosecute any alcohol or drug abuse patient.[facility] SpringfieldIn the event this information is protected by the Federal Confidentiality of Alcohol and Drug Abuse Patient Records regulations: The Federal rules restrict any use of the information to criminally investigate or prosecute any alcohol or drug abuse patient.[facility] Reason for Visit (unrecogniz ed section and content) Reason Comments Orders Reason Comments Patient Question Reason Onset Date Comments Population Health Navigation Outreach 07/10/2022 [facility] Reason Comments Appointment Reason Comments Medicare Wellness Exam Reason Comments Consult Reason Comments Sinus Problem drainage, nausea and cough x 10 days Reason Comments Recheck cough Reason Comments Results Reason Comments Outside Nephrology Reason Comments Mammogram Result Call Back Reason Comments Sinus Problem Congestion, pressure headache, x 8 days cough Reason Comments Outside [id number] Ordered Reason Comments Radiology US Specialty Diagnoses / Procedures Referred By Contac t Referred To Contact [facility] Diagnoses Abnormal mammogram Procedures US BREAST LTD RIGHT US BREAST UNI REAL TIME WITH IMAGE LIMITED Mindi Mckay APRN.NURSE CLINICAL [address] [place] [address] [facility] [place] [place] [address] Referral ID Status Reason Start Date Expiration Date V isits Requested Visits Authorized [id number] Closed Auto-Generate d Referral 02/13/2023 03/14/2024 1 1 Care Teams (unrecognized sec tion and content) Yard Spotter Relationship Specialty Start Date End Date Fortino Briones MD [address] [place], [place] [id number] PCP - General Family Practice 11/10/14 Yard Spotter Relationship Specialty Start Date End Date Fortino Briones MD [address] [place], [place] [id number] PCP - General Family Practice 11/10/14 Yard Spotter Relationship Specialty Start Date End Date Fortino Briones MD [address] [place] [address] PCP - General Family Practice 11/10/14 Yard Spotter Relationship Specialty Start Date End Date Fortino Briones MD [facility] [place] [address] PCP - General Family Practice 11/10/14 Yard Spotter Relationship Specialty Start Date End Date Fortino Briones MD [address] [place] [address], [place] [address] PCP - General Family Medicine 11/10/14 Yard Spotter Relationship Specialty Start Date End Date Fortino Briones MD [address] [place] [address], [place] [address] PCP - General Family Medicine 11/10/14 07/10/22 Yard Spotter Relationship Specialty Start Date End Date Fortino Briones MD [address] [place] [address], [place] [address] PCP - General Family Medicine 07/12/22 Yard Spotter Relationship Specialty Start Date End Date Fortino Briones MD [address] [place] [address], [place] [address] PCP - General Family Medicine 07/12/22 Yard Spotter Relationship Specialty Start Date End Date Fortino Briones MD [address] [place] [address], [place] [address] PCP - General Family Medicine 07/12/22 Yard Spotter Relationship Specialty Start Date End Date Fortino Briones MD [address] [place] [address], [place] [address] PCP - General Family Medicine 07/12/22 Yard Spotter Relationship Specialty Start Date End Date Fortino Briones MD [address] [place] [address], [place] [address] PCP - General Family Medicine 07/12/22 Yard Spotter Relationship Specialty Start Date End Date Fortino Briones MD [address] [place] [address] PCP - General Family Medicine 07/12/22 Yard Spotter Relationship Specialty Start Date End Date Fortino Briones MD [address] [place] [address] PCP - General Family Medicine 07/12/22 Yard Spotter Relationship Specialty Start Date End Date Fortino Briones MD [address] [place] [address] PCP - General Family Medicine 07/12/22 Yard Spotter Relationship Specialty Start Date End Date Fortino Briones MD [address] [place] [address] PCP - General Family Medicine 07/12/22 Yard Spotter Relationship Specialty Start Date End Date Fortino Briones MD [address] [place] [address] PCP - General Family Medicine 07/12/22 Yard Spotter Relationship Specialty Start Date End Date Fortino Briones MD [address] [place] [address] PCP - General Family Medicine 07/12/22 Yard Spotter Relationship Specialty Start Date End Date Fortino Briones MD [address] [place] [address] PCP - General Family Medicine 07/12/22 Yard Spotter Relationship Specialty Start Date End Date Fortino Briones MD [address] [place] [address] PCP - General Family Medicine 07/12/22 INFORMATION [...] BE BASED ON THE PRIMARY CLINICAL RECORDS. [employer] provides no warranty or guarantee of the accuracy or completeness of information in this document.
== END | disposition home or self-care (01) ==
LOC: CT 13:47
PROVIDERS: PCP Family Medicine; Referring Provider Urology; Visit Provider Urology
DX: D41.01 Neoplasm of uncertain behavior of right kidney (principal)
CPT/HCPCS: 74178; Q9967

== ENCOUNTER 2023-08-01 06:02 | Day surgery (SDC) | payer MEDICARE, OTHER, SELFPAY ==
[2023-07-24 16:59] LABS: Hematocrit 35.9 % (37-47); Mean Corp Hgb Conc 30.6 g/dL (32-36); Mean Corpuscular Hgb 28.6 pg (27.0-32.0); Mean Corpuscular Volume 93.2 fL (81-99); Mean Platelet Vol. 9.9 fl (6.2-12.0); Platelet Count 246 K/mm3 (150-450); RBC Distribution Width CV 14.9 % (11.6-14.6); Red Blood Count 3.85 M/mm3 (4.2-5.4); White Blood Count 4.6 K/mm3 (4.4-11.0)
[2023-07-24 17:10] LABS: International Normalized Ratio 1.1; Partial Thromboplast Time 26.4 Seconds (24.1-36.2)
[2023-07-24 17:31] LABS: Anion Gap 4 (5-15); BUN 15 mg/dL (7-18); BUN/Creat Ratio 11.1 RATIO (10-20); Calcium,Total 8.9 mg/dL (8.5-10.1); Chloride 109 mmol/L (98-107); Creatinine, Serum 1.35 mg/dL (0.55-1.02); EST Glomerular Filtration Rate 41 mL/min (>60); Est Glom Filt Rate - Afr Amer 50 mL/min (>60); Glucose 101 mg/dL (74-106); Sodium Level 140 mmol/L (136-145)
[2023-08-01] VITALS (16 sets, daily range): BP systolic 101–122; BP diastolic 60–77; PULSE 70–87; RESP 16–18; TEMP 36.2–37.1; O2SAT 92–100; BMI 21.3
--- OUTSIDE RECORDS SUMMARY | 2023-08-01 06:06 | XMS RPT_ITS | CCD ---
Author Name Unknown Address [address] [place] [address] Organization [facility] Care Team Providers Care Home Energy Rater Name Role Phone Fortino Briones MD Primary Care Provider NELYJUSTYN FINEEE Referring Unavailable FORTINO BRIONES Primary Care Unavailable NELYMINDI FINE Referring Unavailable FORTINO BRIONES Primary Care Unavailable [...] Referring Unavailable FORTINO BRIONES Primary Care Unavailable ALICAI HAMLIN Attending Unavailable FORTINO BRIONES Primary Care Unavailable ALICIA HAMLIN Attending Unavailable FORTINO BRIONES Primary Care Unavailable FORTINO BRIONES Primary Care Unavailable Fortino Briones MD Primary Care Provider [phone] Allergies Allergy Classification Reported Allergen(s) Allergy Type Date of Onset Reaction(s) Facility (20 sources) aMILoride / hydroCHLOROthiaz stone; Translations: [AMILORIDE-HYDRO CHLOROTHIAZIDE] Drug Allergy 6 Intolerance [facility] Work Phone: (20 sources) Amoxicillin; Translations: [AMOXICILLIN] Drug Allergy 6 Rash [facility] Work Phone: (20 sources) Amoxicillin / Clavulanate; Translations: [AMOXICILLIN-POT CLAVULANATE] Drug Allergy 5 GI Upset [facility] Work Phone: (20 sources) Cephalexin; Translations: [CEPHALEXIN] Drug Allergy 6 Intolerance [facility] Work Phone: (20 sources) Doxycycline; Translations: [DOXYCYCLINE] Drug Allergy 5 Other: See Comments, Unknown [facility] Work Phone: (20 sources) Grass pollen; Translations: [GRASS POLLEN] Drug Allergy 6 Unknown [facility] Work Phone: (20 sources) House dust mite; Translations: [DUST MITES] Allergy to substance 6 Unknown [facility] Work Phone: (20 sources) Lisinopril; Translations: [LISINOPRIL] Drug Allergy 1 Cough [facility] Work Phone: (20 sources) Sulfonamides (Antibiotic); Translations: [SULFA (SULFONAMIDE ANTIBIOTICS)] Drug Allergy 9 Rash [facility] Work Phone: (20 sources) Tree; Translations: [TREES] Allergy to substance 6 Unknown [facility] Work Phone: (20 sources) ERYTHRAMYCIN [Other] Propensity to adverse reactions 5 GI Upset [facility] Work Phone: (2 sources) Erythromycin; Translations: [ERYTHROMYCIN] Drug Allergy 3 GI Upset [facility] Repository (1 source) OTHER; Translations: [OTHER] Propensity to adverse reactions (disorder) 5 [facility] Medications Current Medications Medication Drug Class(es) Dates Sig (Normalized) Sig (Original) bisacodyl 5 mg delayed release oral tablet (1 source) Stimulant Laxative Start: 01-13-2021 End: 01-13-2022 Bisacodyl (DULCOLAX) 5 mg tab Use as directed for Miralax / Gatorade Bowel Prep Kit 4 tablet 0 01/13/2021 01/13/2022 Discontinued (Course of therapy completed) Completed/Discontinued Medications Medication Drug Class(es) Dates Sig (Normalized) Sig (Original) [id number] 200 actuat albuterol 0.09 mg/actuat metered dose [...] disease; Translations: [Celiac disease] 11-10-2014 Chronic Other upper respiratory disease (20 sources) Allergic [...] (20 sources) Drug therapy finding; Translations: [Other intermediate (current) drug therapy] Onset: 07-30-2017 02-18-2018 Episodic Other and unspecified benign neoplasm (20 sources) History of polyp of colon; Translations: [Personal history of colonic polyps] Onset: 03-15-2009 08-07-2018 Episodic Other infections; including parasitic (20 sources) History of herpes zoster; Translations: [Personal history of other infectious and parasitic diseases] Onset: 10-15-2020 10-15-2020 Episodic Other screening for suspected conditions (not mental disorders or infectious disease) (20 sources) Patient encounter status; Translations: [Encounter for screening mammogram for malignant neoplasm of breast] Onset: 09-19-2017 Episodic Other skin disorders (20 sources) Epidermoid [...] 98.29 [degF] Fouzia Quiroz PA-C Work Phone: [facility] 2023 10:45-0400 Body weight 67.5 kg Fouzia Athy PA-C Work Phone: [facility] 2023 10:45-0400 Diastolic blood pressure 74 mm[Hg] Fouzia Athy PA-C Work Phone: [facility] 2023 10:45-0400 Heart rate 98 /min Fouzia Athy PA-C Work Phone: [facility] 2023 10:45-0400 Respiratory rate 20 /min Fouzia Athy PA-C Work Phone: [facility] 2023 10:45-0400 SaO2% (BldA) [Mass fraction] 97 % Fouzia Athy PA-C Work Phone: [facility] 2023 10:45-0400 Systolic blood pressure 124 mm[Hg] Fouzia Athy PA-C Work Phone: [facility] 10-09-2022 13:30-0400 Body temperature 98.4 [degF] Lazara Mcnulty PA-C Work Phone: [facility] 10-09-2022 13:30-0400 Body weight 66.68 kg Lazara Mcnulty PA-C Work Phone: [facility] 10-09-2022 13:30-0400 Diastolic blood pressure 78 mm[Hg] Lazara Mcnulty PA-C Work Phone: [facility] 10-09-2022 13:30-0400 Heart rate 64 /min Lazara Mcnulty PA-C Work Phone: [facility] 10-09-2022 13:30-0400 Respiratory rate 16 /min Lazara Mcnulty PA-C Work Phone: [facility] 10-09-2022 13:30-0400 SaO2% (BldA) [Mass fraction] 100 % Lazara Mcnulty PA-C Work Phone: [facility] 10-09-2022 13:30-0400 Systolic blood pressure 102 mm[Hg] Lazara Mcnulty PA-C Work Phone: [facility] 09-15-2022 08:58-0400 Body temperature 97.7 [degF] Lazara Mcnulty PA-C Work Phone: [facility] 09-15-2022 08:58-0400 Body weight 66.22 kg Lazara Mcnulty PA-C Work Phone: [facility] 09-15-2022 08:58-0400 Diastolic blood pressure 76 mm[Hg] Lazara Mcnulty PA-C Work Phone: [facility] 09-15-2022 08:58-0400 Heart rate 98 /min Lazara Mcnulty PA-C Work Phone: [facility] 09-15-2022 08:58-0400 Respiratory rate 18 /min Lazara Mcnulty PA-C Work Phone: [facility] 09-15-2022 08:58-0400 SaO2% (BldA) [Mass fraction] 99 % Lazara Mcnulty PA-C Work Phone: [facility] 09-15-2022 08:58-0400 Systolic blood pressure 108 mm[Hg] Lazara Mcnulty PA-C Work Phone: [facility] 09-11-2022 10:36-0400 Body temperature 99.61 [degF] Fouzia Athy PA-C Work Phone: [facility] 09-11-2022 10:36-0400 Body weight 67.13 kg Fouzia Athy PA-C Work Phone: [facility] 09-11-2022 10:36-0400 Diastolic blood pressure 62 mm[Hg] Fouzia Athy PA-C Work Phone: [facility] 09-11-2022 10:36-0400 Heart rate 114 /min Fouzia Athy PA-C Work Phone: [facility] 09-11-2022 10:36-0400 Respiratory rate 18 /min Fouzia Athy PA-C Work Phone: [facility] 09-11-2022 10:36-0400 SaO2% (BldA) [Mass fraction] 95 % Fouzia Quiroz PA-C Work Phone: [facility] 09-11-2022 10:36-0400 Systolic blood pressure 122 mm[Hg] Fouiza Quiroz PA-C Work Phone: [facility] 08-10-2022 16:11-0500 Body weight 69.4 kg Alicia Knoble WASHER ENGINEER.CUSTOMER SERVICE ASSISTANT Work Phone: [facility] 08-10-2022 16:11-0500 Diastolic blood pressure 80 mm[Hg] Alicia Knoble WASHER ENGINEER.CUSTOMER SERVICE ASSISTANT Work Phone: [facility] 08-10-2022 16:11-0500 Heart rate 80 /min Alicia Knoble WASHER ENGINEER.CUSTOMER SERVICE ASSISTANT Work Phone: [facility] 08-10-2022 16:11-0500 Respiratory rate 14 /min Alicia Knoble WASHER ENGINEER.CUSTOMER SERVICE ASSISTANT Work Phone: [facility] 08-10-2022 16:11-0500 Systolic blood pressure 124 mm[Hg] Alicia Knoble WASHER ENGINEER.CUSTOMER SERVICE ASSISTANT Work Phone: [facility] 01-13-2022 07:01-0400 Body height 165.7 cm Mindi Nely WASHER ENGINEER.CUSTOMER SERVICE ASSISTANT Work Phone: [facility] 01-13-2022 07:01-0400 Body weight 69.67 kg Mindi [place] WASHER ENGINEER.CUSTOMER SERVICE ASSISTANT Work Phone: [facility] 01-13-2022 07:01-0400 Diastolic blood pressure 66 mm[Hg] Mindi Nely WASHER ENGINEER.CUSTOMER SERVICE ASSISTANT Work Phone: [facility] 01-13-2022 07:01-0400 Systolic blood pressure 120 mm[Hg] Mindi [place] WASHER ENGINEER.CUSTOMER SERVICE ASSISTANT Work Phone: [facility] Encounters Encounter Date Encounter Type Care Provider Facility Start: 07-25-2023 Chart abstracting Fortino wall MD Work Phone: [facility] Procedures Date Procedure Procedure Detail Performing Clinician Start: 03-13-2023 Digital breast tomosynthesis unilateral Mindi Mckay WASHER ENGINEER.REBECCA Work Phone: Start: 03-13-2023 Us breast uni real t surya with image limited Mindi Mckay APRN.REBECCA Work Phone: Start: 02-09-2023 Screening mammograph y bi 2-view breast inc cad Mindi Mckay WASHER ENGINEER.REBECCA Work Phone: Start: 08-10-2022 Ecg routine ecg w/le ast 12 lds i&r only [facility] Provider Start: 01-13-2022 End: 01-13-2022 Mammography Mindi Mckay WASHER ENGINEER.C GROUNDS/MAINTENANCE SPECIALIST Work Phone: Start: 01-27-2021 Colonoscopy Mindi goldberg WASHER ENGINEER.REBECCA Work Phone: Start: 10-15-2020 Adult depression scr eening assessment Mindi Mckay WASHER ENGINEER.REBECCA Work Phone: Start: 01-17-2018 Lipid 1996 panel - S connor or Plasma Mindi Mckay WASHER ENGINEER.REBECCA Work Phone: Plan of Treatment Date Care Activity Detail Author Start: 01-27-2026 Colonoscopy COLONOSCOPY [facility] Start: 01-27-2026 COLORECTAL CANCER SCREENING COLORECTAL CANCER SCREENING [facility] Start: 01-27-2026 Screening for malign ant neoplasm of colon [facility] Start: 06-05-2024 Annual PCP Team Double End Tenoner Setter cas Disease Visit Annual PCP Team Chronic Disease Visit [facility] Start: 06-05-2024 BP Controlled (<130/80) BP Controlle d (<130/80) [facility] Start: 02-26-2024 BP Controlled (<130/80) BP Controlle d (<130/80) [facility] Start: 02-10-2024 Mammography Mammogram Screening [facility] Start: 02-10-2024 Screening for malign ant neoplasm of breast Mammogram Screening [facility] Start: 01-01-2024 Urine microalbumin profile [facility] Start: 10-10-2023 ANNUAL PCP TEAM SCIENCE AND OPERATIONS OFFICER CAS DISEASE VISIT ANNUAL PCP TEAM CHRONIC DISEASE VISIT [facility] Start: 10-10-2023 BP CONTROLLED (<130/80) BP CONTROLLE D (<130/80) [facility] Start: 09-16-2023 ANNUAL PCP TEAM SCIENCE AND OPERATIONS OFFICER CAS DISEASE VISIT ANNUAL PCP TEAM CHRONIC DISEASE VISIT [facility] Start: 09-16-2023 BP CONTROLLED (<130/80) BP CONTROLLE D (<130/80) [facility] Start: 09-12-2023 BP CONTROLLED (<130/80) BP CONTROLLE D (<130/80) [facility] Start: 08-11-2023 ANNUAL PCP TEAM SCIENCE AND OPERATIONS OFFICER CAS DISEASE VISIT ANNUAL PCP TEAM CHRONIC DISEASE VISIT [facility] Start: 08-11-2023 BP CONTROLLED (<130/80) BP CONTROLLE D (<130/80) [facility] Start: 06-04-2023 Advance Directive Discussion Advance Directive Discussion [facility] Start: 06-03-2023 ADVANCE DIRECTIVE DISCUSSION ADVANCE DIRECTIVE DISCUSSION [facility] Immunizations Immunization Date Immunization Notes Care Provider Karol coffman 03-20-2022 influenza virus vacc ine, unspecified formulation Mindi Nely WASHER ENGINEER.CUSTOMER SERVICE ASSISTANT Work Phone: [facility] 05-23-2020 pneumococcal polysaccharide vaccine, 23 valent Alicia Knoble WASHER ENGINEER.CUSTOMER SERVICE ASSISTANT Work Phone: [facility] Work Phone: 05-13-2019 pneumococcal conjuga te vaccine, 13 valent Mindi Nely WASHER ENGINEER.CUSTOMER SERVICE ASSISTANT Work Phone: [facility] 03-18-2019 influenza, high dose seasonal, preservative-free Mindi [place] WASHER ENGINEER.CUSTOMER SERVICE ASSISTANT Work Phone: [facility] 04-04-2018 influenza, injectabl e, quadrivalent, contains preservative Mindi [place] WASHER ENGINEER.CUSTOMER SERVICE ASSISTANT Work Phone: [facility] 03-26-2016 influenza, injectabl e, quadrivalent, preservative free Mindi [place] WASHER ENGINEER.CUSTOMER SERVICE ASSISTANT Work Phone: [facility] Work Phone: 03-20-2015 influenza, injectabl e, quadrivalent, preservative free Mindi [place] WASHER ENGINEER.CUSTOMER SERVICE ASSISTANT Work Phone: [facility] 12-31-2013 tetanus toxoid, redu leticia diphtheria toxoid, and acellular pertussis vaccine, adsorbed Mindi Nely WASHER ENGINEER.CUSTOMER SERVICE ASSISTANT Work Phone: [facility] 03-23-2010 influenza virus vacc ine, unspecified formulation Mindi [place] WASHER ENGINEER.CUSTOMER SERVICE ASSISTANT Work Phone: [facility] Work Phone: 05-17-2009 novel influenza-H1N1 -09, all formulations Mindi [place] WASHER ENGINEER.CUSTOMER SERVICE ASSISTANT Work Phone: [facility] Work Phone: 04-21-2006 influenza virus vacc ine, unspecified formulation Mindi [place] WASHER ENGINEER.CUSTOMER SERVICE ASSISTANT Work Phone: [facility] Work Phone: 03-04-2004 influenza virus vacc ine, whole virus Mindi [place] WASHER ENGINEER.CUSTOMER SERVICE ASSISTANT Work Phone: [facility] Work Phone: 02-14-2003 diphtheria and tetan us toxoids, adsorbed for pediatric use Mindi [place] WASHER ENGINEER.CUSTOMER SERVICE ASSISTANT Work Phone: [facility] Work Phone: Payers Date Payer Category Payer Medicare MEDICARE MEDICAR E A AND B [id number] 2019-Present [phone] [address] [address] [place] [address] Medicare [id number] 2019 Medicare [id number] 2019 Medicare [id number] 2019 Unknown MMO MMO MEDICARE SUPPLEMENT [id number] 2019-Present [phone] [address] [place] [address] Indemnity [id number] Social History Date Type Detail Facility Start: 03-30-2011 Tobacco smoking stat [facility] Never smoked tobacco [facility] Start: 03-30-2011 Tobacco use and exposure Smoke less tobacco non-user [facility] Start: 01-13-2022 End: 05-22-2023 Alcohol intake Current non-drinker of alcohol (finding) [facility] Start: 01-01-2020 End: 08-03-2022 History SDOH Social Connections Phone 5 [facility] Start: 01-01-2020 End: 08-03-2022 History SDOH Social Connections Religious 3 [facility] Start: 01-01-2020 End: 08-03-2022 History SDOH Social Connections Membership 1 [facility] Start: 01-01-2020 End: 08-03-2022 History SDOH Social Connections Living 4 [facility] Start: 01-01-2020 History SDOH Physica l Activity MPS 12 [facility] Start: 01-01-2020 End: 08-03-2022 History SDOH Transport Med 2 [facility] Start: 01-01-2020 Education 13 [facility] Start: 1955 Sex Assigned At Female [facility] Start: 01-03-2022 End: 01-17-2022 Exposure to SARS-CoV-2 (event) Not sure [facility] Work Phone: Start: 08-03-2022 History SDOH Alcohol Std Drinks 0 [facility] Start: 08-03-2022 End: 10-09-2022 History of Social function [facility] Start: 08-03-2022 End: 10-09-2022 Social connection and isolation panel [facility] Do you belong to any clubs or organizations such as sikh groups, unions, fraternal or athletic groups, or school groups? Yes [facility] Are you now , , , , never or living with a partner? [facility] How often to you hav e a drink containing alcohol? Never [facility] How many standard dr inks containing alcohol do you have on a typical day? Patient does not drink [facility] Do you feel stress - tense, restless, nervous, or anxious, or unable to sleep at night because your mind is troubled all the time - these days [OSQ] Not at all [facility] (I/We) worried wheth er (my/our) food would run out before (I/we) got money to buy more. Never true [facility] In the past 12 month s, was there a time when you were not able to pay the mortgage or rent on time? No [facility] Start: 10-10-2020 Gender identity Identifies as female gender (finding) [facility] Clinical Notes 01-27-2021 to 07-25-2023 Anni Canela LPN - 07/25/2023 9:04 AM Giorgi Jacki, RDMS - 03/13/2023 11:30 AM Emilie Wallace Mammo Tech - 03/13/2023 11:00 AM Anni Baron LPN - 02/26/2023 12:23 PM EDT Note Date & Type Note Facility 07-25-2023 History of Present illness Narrative Scan on 07/24/2023 5:09 PM by Kofi Lilly PA-C: Hematology Scan on 07/24/2023 5:34 PM by Kofi Lilly PA-C: Chemistry documented in this encounter [facility] 07-04-2023 Note HNO ID: [id number] Author: ANNI CANELA LPN Service: ? Author Type: LICENSED NURSE Type: Progress Notes Filed: 07/04/2023 11:56 Note Text: Scan on 07/03/2023 4:33 PM by Kofi Lilly PA-C: Consultation - [facility] 06-28-2023 Note HNO ID: [id number] Author: ANNI CANELA LPN Service: ? Author Type: LICENSED NURSE Type: Progress Notes Filed: 06/28/2023 08:03 Note Text: Scan on 06/26/2023 3:52 PM by Kofi Lilly PA-C: CT Scan [facility] 06-19-2023 Note HNO ID: [id number] Author: ANNI CANELA LPN Service: ? Author Type: LICENSED NURSE Type: Progress Notes Filed: 06/19/2023 07:16 Note Text: Scan on 06/18/2023 3:37 PM by ProviderKofi PA-C: Consultation - [facility] 06-14-2023 Note HNO ID: [id number] Author: ANNI CANELA LPN Service: ? Author Type: LICENSED NURSE Type: Progress Notes Filed: 06/14/2023 13:18 Note Text: Scan on 06/14/2023 11:56 AM by Provider, ROBERT KirbyC: Consultation - Cardiology [facility] 06-05-2023 Note HNO ID: [id number] Author: Alicia Hamlin APRN.REBECCA Service: ? Author Type: Nurse Practitioner Type: Progress Notes Filed: 06/05/2023 1:14 PM Note Text: Chief Complaint Patient presents with: Hospital F/U [facility] Richelle Cardozo is a 68 year old female who presents here today for Above Complaints.. Patient presents for hospital follow up. Patient was hospitalized with bilateral pneumonia. Imaging completed at [facility] showed a right kidney mass which [...] kidney disease) stage 3, GFR 30-59 ml/min ([facility]) 2013 Diverticulosis of colon 08/04/2005 Duodenitis without [...] Take 1 tabl (more content not included)... [facility] 05-25-2023 Note HNO ID: [id number] Author: Anni Canela LPN Service: ? Author Type: LICENSED NURSE Type: Progress Notes Filed: 05/25/2023 9:55 AM Note Text: Scan on 05/25/2023 8:14 AM by ProviderKofi PA-C: Consultation - Emergency Medicine Scan on 05/25/2023 2:49 AM by Kofi Lilly PA-C: CT Scan Scan on 05/25/2023 2:38 AM by ProviderKofi PA-C: CT Scan [facility] 05-22-2023 Note HNO ID: [id number] Author: Mohini Davidson APRN.REBECCA Service: ? Author Type: Nurse Practitioner Type: Progress Notes Filed: 05/22/2023 10:05 AM Note Text: Subjective The history is provided by the patient. No business rules developer was used. JAZMINE Cardozo is a 68 [...] kidney disease) stage 3, GFR 30-59 ml/min ([facility]) 2013 Diverticulosis of colon 08/04/2005 Duodenitis without [...] have confirmed and edited as necessary, the [facility] Review of Systems Constitutional: Negative for [...] of concepts an (more content not included)... [facility] 03-13-2023 Note HNO ID: [id number] Author: Jacki Price RDMS Service: ? Author Type: Leather Sorter Type: Progress Notes Filed: 03/13/2023 1:40 PM [...] RDMS RVT March 13, 2023 1:40 PM [facility] 03-13-2023 Note HNO ID: [id number] Author: Emilie Cordon Mammo Tech Service: ? Author Type: Consulting Hr Professional Type: Progress Notes Filed: 03/13/2023 11:43 AM [...] Estefania Prescott March 13, 2023 10:56 AM [facility] 03-13-2023 History of [...] 2023 1:40 PM documented in this encounter [facility] 03-13-2023 History of Present illness Narrative [...] 2023 10:56 AM documented in this encounter [facility] 02-27-2023 Note HNO ID: [id number] Author: Mireille Valladares Ma Service: ? Author Type: ? Type: Progress Notes Filed: 03/01/2023 10:25 AM Note Text: Scan on 02/27/2023 3:29 AM by Provider, External, PA-C: Consultation - Rheumatology [facility] 02-26-2023 Note HNO ID: [id number] Author: Anni Canela LPN Service: ? Author Type: ? Type: Progress Notes Filed: 02/26/2023 12:40 PM Note Text: Scan on 02/26/2023 7:37 AM by Provider, External, PA-C: Miscellaneous Lab [facility] 02-26-2023 History of Present illness Narrative Scan on 02/26/2023 7:37 AM by Provider, PRASHANTH Kirby: Miscellaneous Lab documented in this encounter [facility] 2023 Note HNO ID: [id number] Author: Fouzia Quiroz PA-C Service: ? Author Type: Physician Ethnic Origins Teacher Type: Progress Notes Filed: 2023 11:22 AM Note Text: This note was created using [employer]. Subjective Richelle Cardozo is a 68 year old female. [...] kidney disease) stage 3, GFR 30-59 ml/min ([facility]) 2013 Diverticulosis of colon 08/04/2005 Duodenitis without [...] hx cluster headache (more content not included)... [facility] 2023 History of Present illness Narrative This note was created using Film[employer]. Luli Cardozo is a 68 year old [...] kidney disease) stage 3, GFR 30-59 ml/min ([facility]) 2013 Diverticulosis of colon 08/04/2005 Duodenitis without [...] gammopathy 06/27/2013 Seborrheic Keratosis 11/07/2009 Sjogren's disease ([facility]) Solar lentigo 11/07/2009 Current Outpatient Medications Medication [...] Fouzia Quiroz PA-C documented in this encounter [facility] 2023 Instructions Fouzia Quiroz PA-C - 2023 10:54 AM EDT Flonase Plain mucinex otc If not improving in 3-5 days see pcp. documented in this encounter [facility] 02-12-2023 Miscellaneous Notes February 13, 2023 PID: [id number] Richelle Cardozo [address] [place] [id number] Dear Ms. Cardozo, Your recent breast imaging exam on 02/09/2023 showed a possible finding that requires additional imaging studies for a complete evaluation. Most such findings are probably benign (not cancer). If you have a healthcare provider who ordered/prescribed your screening mammogram: Please call [phone] or [phone] to schedule an appointment for your additional [...] and reports are kept on file at [facility] as part of your permanent medical record, and are available for your continuing care. Thank you for allowing us to help in meeting your health care needs. Sincerely, Dr. Ramirez Interpreting Radiologist [facility] (Additional imaging) documented in this encounter [facility] 02-09-2023 Note HNO ID: [id number] Author: Monika Nguyen Mammo Tech Service: ? Author Type: Consulting Hr Professional Type: Progress Notes Filed: 02/09/2023 10:16 AM [...] IV DATA: Not applicable SIGNED BY: Estefania Trejo February 09, 2023 9:59 AM [facility] 02-09-2023 History of [...] PERIPHERAL IV DATA: Not applicable SIGNED BY: Juan Trejoo Denia February 09, 2023 9:59 AM documented in this encounter [facility] 11-30-2022 Note HNO ID: [id number] Author: Anni Canela LPN Service: ? Author Type: ? Type: Progress Notes Filed: 11/30/2022 9:15 AM Note Text: Scan on 11/28/2022 11:31 AM by External Provider, PA-C: Consultation - Nephrology/Renal [facility] 11-30-2022 History of Present illness Narrative Scan on 11/28/2022 11:31 AM by External Provider, PA-C: Consultation - Nephrology/Renal documented in this encounter [facility] 11-24-2022 Note HNO ID: [id number] Author: Kimberly Fields MA Service: ? Author Type: Collections Attorney Type: Progress Notes Filed: 11/25/2022 8:46 AM Note Text: Scan on 11/22/2022 8:10 AM by External Provider, PA-C: Chemistry Scan on 11/22/2022 7:35 AM by External Provider, ROBERTC: Hematology Kimberly Fields MA [facility] 11-24-2022 History of Present illness Narrative Scan on 11/22/2022 8:10 AM by External Provider, PA-C: Chemistry Scan on 11/22/2022 7:35 AM by External Provider, PRASHANTH: Hematology Kimberly Fields MA documented in this encounter [facility] 11-10-2022 Note HNO ID: [id number] Author: RT Charmaine(R) Service: Nuclear Medicine Author [...] RT Charmaine(R) November 10, 2022 12:13 PM [facility] 10-09-2022 Note HNO ID: [id number] Author: Lazara Mcnulty PA-C Service: ? Author Type: Physician Ethnic Origins Teacher Type: Progress Notes Filed: 10/09/2022 1:49 PM [...] kidney disease) stage 3, GFR 30-59 ml/min ([facility]) 2013 Diverticulosis of colon 08/04/2005 Duodenitis without [...] Never Vaping Us (more content not included)... [facility] 10-09-2022 Instructions Lazara Mcnulty PA-C - 10/09/2022 1:38 PM EDT Repeat CXR in about 1 month. Return if symptoms change or worsen. documented in this encounter [facility] 10-09-2022 History of Present illness Narrative Chief [...] kidney disease) stage 3, GFR 30-59 ml/min ([facility]) 2013 Diverticulosis of colon 08/04/2005 Duodenitis without [...] gammopathy 06/27/2013 Seborrheic Keratosis 11/07/2009 Sjogren's disease ([facility]) Solar lentigo 11/07/2009 Previous Surgical History PAST [...] Lazara Mcnulty PA-C documented in this encounter [facility] 10-09-2022 Miscellaneous Notes Pt notified of same. [...] Lazara Mcnulty PA-C documented in this encounter [facility] 10-06-2022 Note HNO ID: [id number] Author: RT Lorenza(R) Service: Radiology Author Type: [...] RT Lorenza(R) October 06, 2022 11:09 AM [facility] 09-15-2022 Note HNO ID: [id number] Author: Lazara Mcnulty PA-C Service: ? Author Type: Physician Ethnic Origins Teacher Type: Progress Notes Filed: 09/15/2022 9:14 AM [...] kidney disease) stage 3, GFR 30-59 ml/min ([facility]) 2013 Diverticulosis of colon 08/04/2005 Duodenitis without [...] 1 capsule by (more content not included)... [facility] 09-15-2022 History of [...] kidney disease) stage 3, GFR 30-59 ml/min ([facility]) 2013 Diverticulosis of colon 08/04/2005 Duodenitis without [...] Lazara Mcnulty PA-C documented in this encounter [facility] 09-11-2022 Note HNO ID: [id number] Author: Fouzia Quiroz PA-C Service: ? Author Type: Physician Ethnic Origins Teacher Type: Progress Notes Filed: 09/11/2022 11:45 AM Note Text: This note was created using Eversightter. Luli Cardozo is a 67 year old female. HPI Patient presents with a chief complaint of cough and chest congestion for 10 days. She has had fevers off and on. Temp here 99.6. She has used Robitussin [id number] without relief. Her grandkids were sick recently [...] kidney disease) stage 3, GFR 30-59 ml/min ([facility]) 2013 Diverticulosis of colon 08/04/2005 Duodenitis without [...] Aortic valve replacemen (more content not included)... [facility] 09-11-2022 Note HNO ID: [id number] Author: RT Lorenza(R) Service: Radiology Author Type: [...] RT Lorenza(R) September 11, 2022 10:51 AM [facility] 09-11-2022 History of Present illness Narrative This note was created using Eversightter. Subjective Richelle Cardozo is a 67 year old female. HPI Patient presents with a chief complaint of cough and chest congestion for 10 days. She has had fevers off and on. Temp here 99.6. She has used Robitussin [id number] without relief. Her grandkids were sick recently [...] kidney disease) stage 3, GFR 30-59 ml/min ([facility]) 2013 Diverticulosis of colon 08/04/2005 Duodenitis without [...] gammopathy 06/27/2013 Seborrheic Keratosis 11/07/2009 Sjogren's disease ([facility]) Solar lentigo 11/07/2009 Current Outpatient Medications Medication [...] Fouzia Quiroz PA-C documented in this encounter [facility] 09-07-2022 Note HNO ID: [id number] Author: Kimberly Fields MA Service: ? Author Type: Collections Attorney Type: Progress Notes Filed: 09/07/2022 4:19 PM Note Text: Scan on 09/02/2022 12:53 AM by External Provider: Consultation - Orthopedics Kimberly Fiedls MA [facility] 09-07-2022 History of Present illness Narrative Scan on 09/02/2022 12:53 AM by External Provider: Consultation - Orthopedics Kimberly Fields MA documented in this encounter [facility] 08-10-2022 Note HNO ID: [id number] Author: Alicia Hamlin APRN.CUSTOMER SERVICE ASSISTANT Service: ? Author Type: Nurse Practitioner Type: Progress Notes Filed: 08/10/2022 5:25 PM Note Text: Richelle Cardozo is a 67 year old female here for a Medicare Initial Annual Wellness Visit Health Risk Assessment In general, health is: Very good Concerns with balance: Not at all Concerns with teeth or dentures: Not at all Concerns with sexual function: Not at all [place] anxious, stressed, angry, irritable, lonely, isolated, or [...] kidney disease) stage 3, GFR 30-59 ml/min ([facility]) 2013 Diverticulosis of colon 08/04/2005 Duodenitis without [...] SPEC WHEN PFRMD (more content not included)... [facility] 08-10-2022 Instructions Alicia Hamlin APRN.CNP - 08/10/2022 4:49 PM EST Will notify patient of labs ordered once results received from police justice Continue current medications Continue follow up with specialists as scheduled Follow up in 1 year documented in this encounter [facility] 08-10-2022 History of Present illness Narrative Richelle Cardozo is a 67 year old female here for a Medicare Initial Annual Wellness Visit Health Risk Assessment In general, health is: Very good Concerns with balance: Not at all Concerns with teeth or dentures: Not at all Concerns with sexual function: Not at all [place] anxious, stressed, angry, irritable, lonely, isolated, or [...] kidney disease) stage 3, GFR 30-59 ml/min ([facility]) 2013 Diverticulosis of colon 08/04/2005 Duodenitis without [...] diet of 1000 mg/day for under 50, 9014-0503 mg/day for 50+ - Discussed need and [...] diet of 1000 mg/day for under 50, 7333-2499 mg/day for 50+ - Discussed need and benefit for weight loss. BMI 25.27 kg/(m^2) - Depression screening tool completed and reviewed with patient. Based on score and interview, patient is not at risk for depression and recommended no further intervention at this time. - Follow up for annual exam in one year Alicia Hamlin APRN.REBECCA documented in this encounter [facility] 07-13-2022 Miscellaneous Notes Patient is scheduled. Kimberly [...] Kimberly Fields MA documented in this encounter [facility] 07-10-2022 Note HNO ID: [id number] Author: Curtis Head MA Service: ? Author Type: Collections Attorney Type: Progress Notes Filed: 07/11/2022 9:48 AM [...] Head MA July 10, 2022 2:04 PM [facility] 07-10-2022 History of [...] 2022 2:04 PM documented in this encounter [facility] 07-10-2022 Note Patient Outreach (KEYANNA TRAOREAV) RICHELLE CARDOZO ([id number]) 1955 F Date Time Provider Department 07/10/22 [...] [Z86.010] 03/15/2009 06/16/2016 DVT (deep venous thrombosis) ([facility]) [I82.409] 06/17/2009 06/16/2016 Solar lentigo [L81.4] 11/07/2009 [...] for gynecological ex (more content not included)... [facility] 02-13-2022 Miscellaneous Notes Pt notified of same. Anni Canela LPN Prescription sent. Patient started having Covid Symptoms last 02/09/2022. Patient tested positive for Covid on Home test. Patient states that most of her symptoms are gone. Patient states that the only symptom lingering is nausea. Patient asking if a prescription for nausea can be sent to [facility]? Please review and advise, Shea Rain RN documented in this encounter [facility] 01-13-2022 Miscellaneous Notes January 13, 2022 PID: [id number] Richelle Cardozo [address] [place] [id number] Dear Ms. Cardozo, Your recent breast imaging exam on 01/13/2022 showed a possible finding that requires additional imaging studies for a complete evaluation. Most such findings are probably benign (not cancer). If you have a healthcare provider who ordered/prescribed your screening mammogram: Please call [phone] or [phone]: [phone] to schedule an appointment for your additional [...] and reports are kept on file at [facility] as part of your permanent medical record, and are available for your continuing care. Thank you for allowing us to help in meeting your health care needs. Sincerely, Dr. Wagner Interpreting Radiologist [facility] (Additional imaging) documented in this encounter [facility] 01-13-2022 History of Present illness Narrative Radiology [...] 2022 7:30 AM documented in this encounter [facility] 01-13-2022 History of Present illness Narrative Aleida is a 66 year old who presents for an annual gynecologic exam without complaints. Postmenopausal: Yes HRT use: No. Last Pap: 2016 normal HPV: 2016 negative History of abnormal pap: No Last mammogram: 2021 pending History of abnormal mammogram: No Sexually active: No OB History T2 L2 SAB0 IAB0 Ectopic1 Multiple0 Live Births0 Trim Technician History LMP: Postmenopausal Age at Menarche: Age at First : Age at Menopause: Trim Technician History Comments: Sexual Activity: Not Currently; No [...] kidney disease) stage 3, GFR 30-59 ml/min ([facility]) 2013 Diverticulosis of colon 08/04/2005 Duodenitis without [...] external genitalia normal, normal [place]'s glands, urethra, [place]'s glands, no vulvar lesions, no cervical lesions, [...] up to date- done in 2020 by School Bus Driver/Teacher Assistant 2) Follow up one year or sooner as needed Mindi Mckay APRN.CNP documented in this encounter [facility] documented as of this encounter (statuses as of 01/13/2022) [facility] History of Past illness Narrative* Problem Noted Date Resolved Date Polyp of colon 01/27/2021 01/27/2021 Encounter for gynecological examination without abnormal finding 10/21/2015 12/02/2015 Overview: [facility]. Family history of colon cancer [...] of this encounter (statuses as of 01/13/2022) [facility] History of Past illness Narrative* Problem Noted Date Resolved Date Polyp of colon 01/27/2021 01/27/2021 Encounter for gynecological examination without abnormal finding 10/21/2015 12/02/2015 [facility] Family history of colon cancer [...] of this encounter (statuses as of 01/14/2022) [facility] History of Past illness Narrative* Problem Noted Date Resolved Date Polyp of colon 01/27/2021 01/27/2021 Encounter for gynecological examination without abnormal finding 10/21/2015 12/02/2015 [facility] Family history of [facility] cancer [...] of this encounter (statuses as of 01/17/2022) [facility] History of Past illness Narrative* Problem Noted Date Resolved Date Polyp of colon 01/27/2021 01/27/2021 Encounter for gynecological examination without abnormal finding 10/21/2015 12/02/2015 [facility] Family history of [facility] cancer [...] of this encounter (statuses as of 02/13/2022) [facility] History of Past illness Narrative* Problem Noted Date Resolved Date Polyp of colon 01/27/2021 01/27/2021 Encounter for gynecological examination without abnormal finding 10/21/2015 12/02/2015 Overview: Sees [facility]. Family history of colon cancer 01/07/2015 0 [...] of this encounter (statuses as of 04/05/2022) [facility] History of Past illness Narrative* Problem Noted [...] of this encounter (statuses as of 07/11/2022) [facility] History of Past illness Narrative* Problem Noted Date Resolved Date Polyp of colon 01/27/2021 01/27/2021 Encounter for gynecological examination without abnormal finding 10/21/2015 12/02/2015 Overview: [facility]. Family history of colon cancer 01/07/2015 [...] of this encounter (statuses as of 07/13/2022) [facility] History of Past illness Narrative* Problem Noted Date Resolved Date Polyp of colon 01/27/2021 01/27/2021 Encounter for gynecological examination without abnormal finding 10/21/2015 12/02/2015 [facility] Family history of colon cancer [...] of this encounter (statuses as of 08/11/2022) [facility] History of Past illness Narrative* Problem Noted Date Resolved Date Polyp of colon 01/27/2021 01/27/2021 Encounter for gynecological examination without abnormal finding 10/21/2015 12/02/2015 [facility] Family history of colon cancer [...] of this encounter (statuses as of 09/08/2022) [facility] History of Past illness Narrative* Problem Noted Date Resolved Date Polyp of colon 01/27/2021 01/27/2021 Encounter for gynecological examination without abnormal finding 10/21/2015 12/02/2015 [facility] Family history of colon cancer [...] of this encounter (statuses as of 09/11/2022) [facility] History of Past illness Narrative* Problem Noted Date Resolved Date Polyp of colon 01/27/2021 01/27/2021 Encounter for gynecological examination without abnormal finding 10/21/2015 12/02/2015 Overview: [facility]. Family history of colon cancer 01/07/2015 [...] of this encounter (statuses as of 09/15/2022) [facility] of Past illness Narrative* Problem Noted Date Resolved Date Polyp of colon 01/27/2021 01/27/2021 Encounter for gynecological examination without abnormal finding 10/21/2015 12/02/2015 [facility] Family history of [facility] cancer [...] of this encounter (statuses as of 10/09/2022) [facility] of Past illness Narrative* Problem Noted Date Resolved Date Polyp of colon 01/27/2021 01/27/2021 Encounter for gynecological examination without abnormal finding 10/21/2015 12/02/2015 [facility]: [facility] Family history of colon cancer [...] of this encounter (statuses as of 10/09/2022) [facility] History of Past illness Narrative* Problem Noted Date Resolved Date Polyp of colon 01/27/2021 01/27/2021 Encounter for gynecological examination without abnormal finding 10/21/2015 12/02/2015 [facility] Family history of colon cancer [...] of this encounter (statuses as of 11/25/2022) [facility] History of Past illness Narrative* Problem Noted Date Resolved Date Polyp of colon 01/27/2021 01/27/2021 Encounter for gynecological examination without abnormal finding 10/21/2015 12/02/2015 Overview: [facility]. Family history of colon cancer 01/07/2015 [...] of this encounter (statuses as of 11/30/2022) [facility] of Past illness Narrative* Problem Noted Date Diagnosed Date Resolved Date Polyp of colon 01/27/2021 01/27/2021 Encounter for gynecological examination without abnormal finding 10/21/2015 12/02/2015 [facility] Family history of [facility] cancer [...] of this encounter (statuses as of 02/13/2023) [facility] of Past illness Narrative* Problem Noted Date Diagnosed Date Resolved Date Polyp of colon 01/27/2021 01/27/2021 Encounter for gynecological examination without abnormal finding 10/21/2015 12/02/2015 [facility]: [facility] Family history of colon cancer [...] of this encounter (statuses as of 02/13/2023) [facility] of Past illness Narrative* Problem Noted Date Diagnosed Date Resolved Date Polyp of colon 01/27/2021 01/27/2021 Encounter for gynecological examination without abnormal finding 10/21/2015 12/02/2015 [facility] Family history of colon cancer [...] of this encounter (statuses as of 02/14/2023) [facility] History of Past illness Narrative* Problem Noted Date Diagnosed Date Resolved Date Polyp of colon 01/27/2021 01/27/2021 Encounter for gynecological examination without abnormal finding 10/21/2015 12/02/2015 Overview: [facility]. Family history of colon cancer 01/07/2015 [...] of this encounter (statuses as of 2023) [facility] History of Past illness Narrative* Problem Noted Date Diagnosed Date Resolved Date Polyp of colon 01/27/2021 01/27/2021 Encounter for gynecological examination without abnormal finding 10/21/2015 12/02/2015 [facility]: [facility] Family history of colon cancer [...] of this encounter (statuses as of 02/26/2023) [facility] History of Past illness Narrative* Problem Noted Date Diagnosed Date Resolved Date Polyp of colon 01/27/2021 01/27/2021 Encounter for gynecological examination without abnormal finding 10/21/2015 12/02/2015 [facility]: [facility] Family history of [facility] cancer [...] of this encounter (statuses as of 04/08/2023) [facility] History of Past illness Narrative* Problem Noted Date Diagnosed Date Resolved Date Polyp of colon 01/27/2021 01/27/2021 Encounter for gynecological examination without abnormal finding 10/21/2015 12/02/2015 [facility] Family history of colon cancer [...] of this encounter (statuses as of 04/08/2023) [facility] of Past illness Narrative* Problem Noted Date Diagnosed Date Resolved Date Polyp of colon 01/27/2021 01/27/2021 Encounter for gynecological examination without abnormal finding 10/21/2015 12/02/2015 Overview: [facility]. Family history of colon cancer 01/07/2015 [...] of this encounter (statuses as of 04/08/2023) [facility] of Past illness Narrative* Problem Noted Date Diagnosed Date Resolved Date Polyp of colon 01/27/2021 01/27/2021 Encounter for gynecological examination without abnormal finding 10/21/2015 12/02/2015 Overview: [facility]. Family history of colon cancer 01/07/2015 [...] as of this encounter (statuses as of 07/25/2023) [facility] Diagnosis Encounter for gynecological examination (general) (routine) without abnormal findings- Primary Encounter for screening mammogram for breast cancer [facility] Diagnosis Abnormal [facility]ogram- Primary Abnormal mammogram, unspecified [facility] for screening [facility] for breast cancer [facility] Diagnosis Medicare annual wellness visit, initial- Primary Routine general medical examination at a health care facility Essential hypertension Unspecified essential hypertension Mixed hyperlipidemia Anemia of chronic disease Anemia of other chronic disease Stage 3a chronic kidney disease (HCC) Celiac disease Well adult exam Routine general medical examination at a health care facility [facility] Diagnosis Bacterial pneumonia- Primary Bacterial pneumonia, unspecified [facility] Diagnosis Bacterial pneumonia- Primary Bacterial pneumonia, unspecified documented in this encounter [facility] note* Diagnosis Bacterial pneumonia- Primary Bacterial pneumonia, unspecified documented in this encounter [facility] note* Diagnosis Bacterial pneumonia- Primary Bacterial pneumonia, unspecified documented in this encounter [facility] note* Diagnosis Abnormal mammogram- Primary Abnormal mammogram, unspecified documented in this encounter [facility] note* Diagnosis Acute pansinusitis, recurrence not specified- Primary documented in this encounter [facility] note* Diagnosis Encounter for screening mammogram for breast cancer documented in this encounter [facility] note* Diagnosis Abnormal mammogram Abnormal mammogram, unspecified documented in this encounter [facility] note* Diagnosis Abnormal mammogram Abnormal mammogram, unspecified documented in this encounter [facility] for referral (narrative)* Diagnostic Procedure Only (Routine) - Pending Review Specialty Diagnoses / Procedures Referred By Gal trevino Referred To Contact [facility] Diagnoses Encounter for screening mammogram for breast cancer Procedures SUSHIL SCREENING SCREENING MAMMOGRAPHY BI 2-VIEW BREAST INC CAD Mindi Mckay APRN.CNP [address] [place] [address] [facility] [address] [address] Referral ID Status Reason Start Date Expiration Date Visits Requested Visits Authorized [id number] Pending Review Auto-Generat ed Referral 01/13/2022 02/12/2023 1 1 [facility] for referral (narrative)* Diagnostic Procedure Only (Routine) - Authorized Specialty Diagnoses / Procedures Referred By Gal t Referred To Contact [facility] Diagnoses Abnormal mammogram Procedures US BREAST LTD RT US BREAST UNI REAL TIME WITH IMAGE LIMITED Mindi Mckay APRN.CNP [address] [place] [address] [facility] [address] [place] [address] Referral ID Status Reason Start Date Expiration Date Visits Requested Visits Authorized [id number] Authorized Auto-Generat ed Referral 01/13/2022 02/12/2023 1 1 * Diagnostic Procedure Only (Routine) - Authorized Specialty Diagnoses / Procedures Referred By Franciscaac t Referred To Contact [facility] Diagnoses Abnormal mammogram Procedures SUSHIL DIAGNOSTIC RT DIAGNOSTIC MAMMOGRAPHY COMPUTER-AIDED DETCJ [facility] Mindi Mckay APRN.CUSTOMER SERVICE ASSISTANT [address] [place] [address] [facility] [address] [place] [address] Referral ID Status Reason Start Date Expiration Date Visits Requested Visits Authorized [id number] Authorized Auto-Generat ed Referral 01/13/2022 02/12/2023 1 1 [facility] for referral (narrative)* Diagnostic Procedure Only (Routine) - Closed Specialty Diagnoses / Procedures Referred By Gal t Referred To Contact [facility] Diagnoses Encounter for screening mammogram for breast cancer Procedures SUSHIL SCREENING SCREENING MAMMOGRAPHY BI 2-VIEW BREAST INC CAD Mindi Mckay, WASHER ENGINEER.CUSTOMER SERVICE ASSISTANT [address] [place] [address] [facility] [address] [place] [address] Referral ID Status Reason Start Date Expiration Date V isits Requested Visits Authorized [id number] Closed Auto-Generate d Referral 01/04/2021 02/03/2022 1 1 [facility] for referral (narrative)* Outpatient Procedure (Routine) - Pending Review Specialty Diagnoses / Procedures Referred By Franciscaac t Referred To [facility] Diagnoses Medicare annual wellness visit, initial Procedures ECG COMPLETE ECG ROUTINE ECG W/LEAST 12 LDS W/I&R Alicia Hamlin APRN.CUSTOMER SERVICE ASSISTANT [address] [place] [address] [facility] [address] [place] [address] Referral ID Status Reason Start Date Expiration Date Visits Requested Visits Authorized [id number] Pending Review Auto-Generat ed Referral 08/10/2022 08/10/2023 1 1 [facility] for referral (narrative)* Diagnostic Procedure Only (Routine) - Pending Review Specialty Diagnoses / Procedures Referred By Gal t Referred To Contact [facility] Diagnoses Abnormal mammogram Procedures US BREAST LTD RIGHT US BREAST UNI REAL TIME WITH IMAGE LIMITED Mindi Mckay APRN.CUSTOMER SERVICE ASSISTANT [address] [place] [address] [facility] [address] [place] [address] Referral ID Status Reason Start Date Expiration Date Visits Requested Visits Authorized [id number] Pending Review Auto-Generat ed Referral 02/13/2023 03/14/2024 1 1 * Diagnostic Procedure Only (Routine) - Authorized Specialty Diagnoses / Procedures Referred By Gal t Referred To Contact [facility] Diagnoses Abnormal mammogram Procedures SUSHIL DIAGNOSTIC RIGHT DIAGNOSTIC MAMMOGRAPHY COMPUTER-AIDED DETCJ UNI Mindi Mckay APRN.CUSTOMER SERVICE ASSISTANT [address] [place] [address] [facility] [address] [place] [address] Referral ID Status Reason Start Date Expiration Date Visits Requested Visits Authorized [id number] Authorized Auto-Generat ed Referral 02/13/2023 03/14/2024 1 1 [facility] for referral (narrative)* Diagnostic Procedure Only (Routine) - Closed Specialty Diagnoses / Procedures Referred By Gal t Referred To Contact [facility] Diagnoses Encounter for screening mammogram for breast cancer Procedures SUSHIL SCREENING SCREENING MAMMOGRAPHY BI 2-VIEW BREAST INC CAD Mindi Mckay APRN.CUSTOMER SERVICE ASSISTANT [address] [place] [address] [facility] [address] [place] [address] Referral ID Status Reason Start Date Expiration Date V isits Requested Visits Authorized [id number] Closed Auto-Generate d Referral 01/13/2022 02/12/2023 1 1 T [facility] for referral (narrative)* Diagnostic Procedure Only (Routine) - Closed Specialty Diagnoses / Procedures Referred By Contac t Referred To Contact [facility] Diagnoses Abnormal mammogram Procedures US BREAST LTD RIGHT US BREAST UNI REAL TIME WITH IMAGE LIMITED Mindi Mckay APRN.CUSTOMER SERVICE ASSISTANT [address] [place] [address] [facility] [address] [place] [address] Referral ID Status Reason Start Date Expiration Date V isits Requested Visits Authorized [id number] Closed Auto-Generate d Referral 02/13/2023 03/14/2024 1 1 [facility] for visit Narrative* Diagnostic Procedure Only (Routine) - Closed Specialty Diagnoses / Procedures Referred By Contac t Referred To Contact [facility] Diagnoses Encounter for screening mammogram for breast cancer Procedures SUSHIL SCREENING SCREENING MAMMOGRAPHY BI 2-VIEW BREAST INC CAD Mindi Mckay APRN.CUSTOMER SERVICE ASSISTANT [address] [place] [address] [facility] [address] [place] [address] Referral ID Status Reason Start Date Expiration Date V isits Requested Visits Authorized [id number] Closed Auto-Generate d Referral 01/04/2021 02/03/2022 1 1 [facility] for visit Narrative* Diagnostic Procedure Only (Routine) - Closed Specialty Diagnoses / Procedures Referred By Contac t Referred To Contact [facility] Diagnoses Encounter for screening mammogram for breast cancer Procedures SUSHIL SCREENING SCREENING MAMMOGRAPHY BI 2-VIEW BREAST INC CAD Mindi Mckay APRN.CUSTOMER SERVICE ASSISTANT [address] [place] [address] [facility] [address] [place] [address] Referral ID Status Reason Start Date Expiration Date V isits Requested Visits Authorized [id number] Closed Auto-Generate d Referral 01/13/2022 02/12/2023 1 [facility] Procedure Only (Routine) - Closed Specialty Diagnoses / Procedures Referred By Contac t Referred To Contact [facility] Diagnoses Abnormal mammogram Procedures SUSHIL DIAGNOSTIC RIGHT DIAGNOSTIC MAMMOGRAPHY COMPUTER-AIDED DETCJ UNI Mindi Mckay, WASHER ENGINEER.CUSTOMER SERVICE ASSISTANT [address] [place] [address] [facility] [address] [place] [address] Referral ID Status Reason Start Date Expiration Date V isits Requested Visits Authorized [id number] Closed Auto-Generate d Referral 02/13/2023 03/14/2024 1 1 [facility] Summary Purpose Family History No Family History [...] or prosecute any alcohol or drug abuse patient.[facility] the event this information is protected by the Federal Confidentiality of Alcohol and Drug Abuse Patient Records regulations: The Federal rules restrict any use of the information to criminally investigate or prosecute any alcohol or drug abuse patient.[facility] the event this information is protected by the Federal Confidentiality of Alcohol and Drug Abuse Patient Records regulations: The Federal rules restrict any use of the information to criminally investigate or prosecute any alcohol or drug abuse patient.[facility] the event this information is protected by the Federal Confidentiality of Alcohol and Drug Abuse Patient Records regulations: The Federal rules restrict any use of the information to criminally investigate or prosecute any alcohol or drug abuse patient.[facility]In the event this information is protected by the Federal Confidentiality of Alcohol and Drug Abuse Patient Records regulations: The Federal rules restrict any use of the information to criminally investigate or prosecute any alcohol or drug abuse patient.[facility] the event this information is protected by the Federal Confidentiality of Alcohol and Drug Abuse Patient Records regulations: The Federal rules restrict any use of the information to criminally investigate or prosecute any alcohol or drug abuse patient.[facility] the event this information is protected by the Federal Confidentiality of Alcohol and Drug Abuse Patient Records regulations: The Federal rules restrict any use of the information to criminally investigate or prosecute any alcohol or drug abuse patient.[facility] the event this information is protected by the Federal Confidentiality of Alcohol and Drug Abuse Patient Records regulations: The Federal rules restrict any use of the information to criminally investigate or prosecute any alcohol or drug abuse patient.[facility] the event this information is protected by the Federal Confidentiality of Alcohol and Drug Abuse Patient Records regulations: The Federal rules restrict any use of the information to criminally investigate or prosecute any alcohol or drug abuse patient.[facility] the event this information is protected by the Federal Confidentiality of Alcohol and Drug Abuse Patient Records regulations: The Federal rules restrict any use of the information to criminally investigate or prosecute any alcohol or drug abuse patient.[facility] the event this information is protected by the Federal Confidentiality of Alcohol and Drug Abuse Patient Records regulations: The Federal rules restrict any use of the information to criminally investigate or prosecute any alcohol or drug abuse patient.[facility] the event this information is protected by the Federal Confidentiality of Alcohol and Drug Abuse Patient Records regulations: The Federal rules restrict any use of the information to criminally investigate or prosecute any alcohol or drug abuse patient.[facility] the event this information is protected by the Federal Confidentiality of Alcohol and Drug Abuse Patient Records regulations: The Federal rules restrict any use of the information to criminally investigate or prosecute any alcohol or drug abuse patient.[facility] HospitalIn the event this information is protected by the Federal Confidentiality of Alcohol and Drug Abuse Patient Records regulations: The Federal rules restrict any use of the information to criminally investigate or prosecute any alcohol or drug abuse patient.[facility] the event this information is protected by the Federal Confidentiality of Alcohol and Drug Abuse Patient Records regulations: The Federal rules restrict any use of the information to criminally investigate or prosecute any alcohol or drug abuse patient.[facility] the event this information is protected by the Federal Confidentiality of Alcohol and Drug Abuse Patient Records regulations: The Federal rules restrict any use of the information to criminally investigate or prosecute any alcohol or drug abuse patient.[facility] the event this information is protected by the Federal Confidentiality of Alcohol and Drug Abuse Patient Records regulations: The Federal rules restrict any use of the information to criminally investigate or prosecute any alcohol or drug abuse patient.[facility] HospitalIn the event this information is protected by the Federal Confidentiality of Alcohol and Drug Abuse Patient Records regulations: The Federal rules restrict any use of the information to criminally investigate or prosecute any alcohol or drug abuse patient.[facility] the event this information is protected by the Federal Confidentiality of Alcohol and Drug Abuse Patient Records regulations: The Federal rules restrict any use of the information to criminally investigate or prosecute any alcohol or drug abuse patient.[facility] HospitalIn the event this information is protected by the Federal Confidentiality of Alcohol and Drug Abuse Patient Records regulations: The Federal rules restrict any use of the information to criminally investigate or prosecute any alcohol or drug abuse patient.[facility]In the event this information is protected by the Federal Confidentiality of Alcohol and Drug Abuse Patient Records regulations: The Federal rules restrict any use of the information to criminally investigate or prosecute any alcohol or drug abuse patient.[facility]In the event this information is protected by the Federal Confidentiality of Alcohol and Drug Abuse Patient Records regulations: The Federal rules restrict any use of the information to criminally investigate or prosecute any alcohol or drug abuse patient.[facility] the event this information is protected by the Federal Confidentiality of Alcohol and Drug Abuse Patient Records regulations: The Federal rules restrict any use of the information to criminally investigate or prosecute any alcohol or drug abuse patient.[facility] the event this information is protected by the Federal Confidentiality of Alcohol and Drug Abuse Patient Records regulations: The Federal rules restrict any use of the information to criminally investigate or prosecute any alcohol or drug abuse patient.[facility] the event this information is protected by the Federal Confidentiality of Alcohol and Drug Abuse Patient Records regulations: The Federal rules restrict any use of the information to criminally investigate or prosecute any alcohol or drug abuse patient.[facility] Reason for Visit (unrecogniz ed section and [...] x 8 days cough Reason Comments Outside Ledf-Fbg-EVJ Ordered Reason Comments Radiology US Specialty Diagnoses / Procedures Referred By Contac t Referred To Contact [facility] Diagnoses Abnormal mammogram Procedures US BREAST LTD RIGHT US BREAST UNI REAL TIME WITH IMAGE LIMITED Mindi Mckay APRN.CUSTOMER SERVICE ASSISTANT [address] [place] [address] [facility] [address] [place] [address] Referral ID Status Reason Start Date Expiration Date V isits Requested Visits Authorized [id number] Closed Auto-Generate d Referral 02/13/2023 03/14/2024 1 1 Care Teams (unrecognized sec tion and content) [employer] Relationship Specialty Start Date End Date Fortino Briones MD [address] [place] [address] PCP - General Family Practice 11/10/14 Home Energy Rater Relationship Specialty Start Date End Date Fortino Briones MD [address] [place] [address] PCP - General Family Practice 11/10/14 Home Energy Rater Relationship Specialty Start Date End Date Fortino Briones MD [address] [place] [address] PCP - General Family Practice 11/10/14 Home Energy Rater Relationship Specialty Start Date End Date Fortino Briones MD [address] [place] [address] PCP - General Family Practice 11/10/14 Home Energy Rater Relationship Specialty Start Date End Date Fortino Briones MD [address] [place] [address] PCP - General Family Medicine 11/10/14 Home Energy Rater Relationship Specialty Start Date End Date Fortino Briones MD [address] [place] [address] PCP - General Family Medicine 11/10/14 07/10/22 Home Energy Rater Relationship Specialty Start Date End Date Fortino Briones MD [address] [place] [address] PCP - General Family Medicine 07/12/22 Home Energy Rater Relationship Specialty Start Date End Date Fortino Briones MD [facility] [place] [address] PCP - General Family Medicine 07/12/22 Home Energy Rater Relationship Specialty Start Date End Date Fortino Briones MD [address] [place] [address] PCP - General Family Medicine 07/12/22 Home Energy Rater Relationship Specialty Start Date End Date Fortino Briones MD [address] [place] [address], [place] [address] PCP - General Family Medicine 07/12/22 Home Energy Rater Relationship Specialty Start Date End Date Fortino Briones MD [address] [place] [address] [place] [address] PCP - General Family Medicine 07/12/22 Home Energy Rater Relationship Specialty Start Date End Date Fortino Briones MD [address] [place] [address] PCP - General Family Medicine 07/12/22 Home Energy Rater Relationship Specialty [place] [address] [place] [address], [place] [address] PCP - General Family Medicine 07/12/22 Home Energy Rater Relationship Specialty Start Date End Date Fortino Briones MD [address] [place] [address] PCP - General Family Medicine 07/12/22 Home Energy Rater Relationship Specialty Start Date End Date Fortino Briones MD [address] [place] [address] PCP - General Family Medicine 07/12/22 Home Energy Rater Relationship Specialty Start Date End Date Fortino Briones MD [address] [place] [address] PCP - General Family Medicine 07/12/22 Home Energy Rater Relationship Specialty Start Date End Date Fortino Briones MD [address] [place] [address] PCP - General Family Medicine 07/12/22 Home Energy Rater Relationship Specialty Start Date End Date Fortino Briones MD [address] [place] [address] PCP - General Family Medicine 07/12/22 Home Energy Rater Relationship Specialty Start Date End Date Fortino Briones MD [address] [place] [address] PCP - General Family Medicine 07/12/22 INFORMATION [...] BE BASED ON THE PRIMARY CLINICAL RECORDS. [employer] [facility]. provides no warranty or guarantee of the accuracy or completeness of information in this document.
[2023-08-01] MEDS: Lactated Ringers 1,000 ML 15 ML IV (06:41)
--- NOTE | 2023-08-01 07:30 | KID_PTH ---
PATHOLOGY RESULTS PATIENT: NETO CARDOZO [place] [facility] [place][id number] AGE/SX: 68/F ROOM: RE08/01/[address]: Dr. Garret Longoria MD : 1955 BED: DIS: 08/02/2023 SPEC #: [id number] RECD: 08/01/23 12:59 STATUS: JEFE VIDAL #: [id number] JOSH: 08/01/23 07:[address]: Garret Longoria DEPT: SURGICAL PATHOLOGY RECD BY: Nga Goodman ENTERED: 08/01/23 13:00 SP TYPE: KIDNEY OTHR DR: MD Dr. Vinny Carballo MD Tissues: Kidney, NOS Procedures: Surgery Specimen Level V HEADER OPERATION: Lap robotic partial nephrectomy PRE-OP DIAGNOSIS: Neoplasm of uncertain behavior of right kidney TISSUE SUBMITTED: Right kidney tumor MICROSCOPIC DIAGNOSIS Right kidney tumor, partial nephrectomy: Papillary renal cell carcinoma. See cancer summary in the comment section. SJ:rg 08/03/2023 COMMENT KIDNEY CANCER SUMMARY Procedure - partial nephrectomy Specimen laterality - right Tumor site - not specified Tumor size - 3.3 x 2.2 x 2.0 cm Tumor focality - unifocal Histologic type - papillary renal cell carcinoma. The tumor cells show oncocytic features. Sarcomatoid features - not identified Rhabadoid features - not identified Histologic grade - grade 1 (WHO/ISUP grade/Monica grade) Tumor necrosis - not identified Tumor extension - tumor limited to kidney. Margins - margins uninvolved by invasive carcinoma. Lymphvascular invasion - not identified Regional lymph nodes - no lymph nodes submitted or found. Pathologic findings in non-neoplastic kidney - insufficient tissue Additional pathologic findings - none PATHOLOGIC STAGE: pT1a pNx pMx The above summary is in compliance with [employer] [place] [employer] (CAP) Cancer Protocols Checklist and [place] Joint Committee on Cancer (AJCC), Staging Manual, 8th Ed. Case has been reviewed in consultation with Dr. Lee who concurs with the above diagnosis. IDC:AM MICROSCOPIC DESCRIPTION Slides are reviewed. GROSS DESCRIPTION Received in fixative is one container labeled with the patient's name and designated right kidney tumor. The specimen consists of an ovoid fragment of light fajardo soft tissue measuring 3.3 x 2.2 x 2.0 cm. No orientation is provided. The specimen is inked and reveal fajardo-yellow cut surfaces in which there are foci of hemorrhage ranging in size from 0.1 to 0.7 cm. The specimen is serially sectioned and totally submitted in six cassettes. / AM:rocio 08/02/2023 TC:0 CPT: 36068
[2023-08-01] MEDS: Cefazolin 2 GM in 0.9% Normal Saline (100mL Bag) 100 ML IV (07:40)
[2023-08-01] MEDS: Bupivacaine Mpf 0.5% 30 ML VIAL (09:30)
--- NOTE | 2023-08-01 09:33 | DCINST_ITS ---
Discharge Instructions Diet Discharge Diet: No restrictions Activity Discharge Activity: Return to Normal Activity and May Not Drive (while taking narcotic pain medications.) Dressing / Incision Call your doctor if you observe: Fever of 101 or Higher Follow Up Care Please Follow Up With: Garret Longoria MD When: Call [phone] for an appointment Test Results: Test results from this visit will be discussed in further detail at your follow- up appointment, if applicable. Discharge Plan Admission Primary Reason for Your Visit: Resection of renal mass left Attending Provider: Garret Longoria Primary Care Provider: Vinny Mancilla Consulting Providers: Steve Baxter Discharge Orders/Prescriptions Prescriptions: New oxycodone 5 mg tablet 5 mg PO Q6H PRN (Reason: pain) 7 Days Qty: 10 0RF docusate sodium [Colace] 100 mg capsule 100 mg PO BID Qty: 20 0RF Continued Adult 50 Plus Probiotic 4 billion cell capsule 4,000 mmu cells PO DAILY Rx Instructions: administer with a meal alendronate sodium 35 mg 35 mg PO SA omeprazole 20 MG capsule 20 mg PO DAILY fluticasone propionate 1 SPRAY spray,suspension 2 spray NASAL DAILY calcium carbonate-vitamin D3 1 TAB tablet 1 tab PO BIDCM montelukast 10 MG tablet 10 mg PO DAILY cholecalciferol (vitamin D3) 2,000 UNIT capsule 2,000 unit PO DAILY hydroxychloroquine 200 mg tablet 200 mg PO DAILY metoprolol tartrate 25 mg Tablet 25 mg PO BID Qty: 60 2RF Referrals / Follow Up: Vinny Mancilla MD [Primary Care Provider] - Garret Longoria MD [Med Staff - Active Staff] - Disposition Disposition (needs filled in before D/C Order can be placed): Home, Self Care
--- NOTE | 2023-08-01 09:33 | HP.PCM_ITS ---
HPI - General General Date of Service: 08/01/23 Chief Complaint: Solid right renal mass HPI Narrative NETO CARDOZO, is a 68 F who presents for a laparoscopic robotic assisted right partial nephrectomy for a solid mass concerning for renal cell carcinoma [facility] Medical History (Updated 08/01/23 @ 09:[address] Garret Longoria MD) Abnormal echocardiogram Anemia Bone lesion Cancer Cardiology follow-up encounter Celiac disease Chronic kidney disease, stage 3 DVT (deep venous thrombosis) Essential hypertension GERD (gastroesophageal reflux disease) Hemorrhoid History of echocardiogram History of irregular heartbeat History of renal disease Mixed hyperlipidemia Non-smoker Osteoarthritis Right renal mass Sjogren's disease Wears glasses Home Medications calcium carbonate 600 mg-vitamin D3 20 mcg (800 unit) tablet 1 tab PO BIDCM 03/14/13 [History Last Taken 07/31/23] fluticasone propionate 50 mcg/actuation nasal spray,suspension 2 spray NASAL DAILY 03/14/13 [History Last Taken 07/31/23] omeprazole 20 mg capsule,delayed release 20 mg PO DAILY 03/14/13 [History Last Taken 08/01/23] montelukast 10 mg tablet 10 mg PO DAILY ALLERGIES 09/23/14 [History Last Taken 07/31/23] cholecalciferol (vitamin D3) 50 mcg (2,000 unit) capsule 2,000 unit PO DAILY [History Last Taken 07/31/23] hydroxychloroquine 200 mg tablet 200 mg PO DAILY 05/24/23 [History Last Taken 08/01/23] metoprolol tartrate 25 mg tablet 25 mg PO BID #60 tabs 05/29/23 [Rx Last Taken 08/01/23] alendronate sodium 35 mg PO SA 06/14/23 [History Last Taken 07/31/23] lactobacillus combination no.9 4 billion cell capsule (Adult 50 Plus Probiotic) 4,000 mmu cells PO DAILY 06/14/23 [History Last Taken 07/31/23] docusate sodium 100 mg capsule (Colace) 100 mg PO BID #20 caps 08/01/23 [Rx Last Taken Unknown] oxycodone 5 mg tablet 5 mg PO Q6H PRN pain 7 days #10 tabs 08/01/23 [Rx Last Taken Unknown] Allergy/AdvReac Type Severity Reaction Status Date / Time gluten Allergy Food Verified 08/01/23 06:27 Allergy amoxicillin AdvReac Nausea Verified 08/01/23 06:27 doxycycline AdvReac Other Verified 08/01/23 06:27 erythromycin base AdvReac Nausea Verified 08/01/23 06:27 [Erythromycin Base] hydrocodone bitartrate AdvReac Vomiting Verified 08/01/23 06:27 [From Vicodin] Sulfa (Sulfonamide AdvReac Nausea Verified 08/01/23 06:27 Antibiotics) Family History Mother Breast cancer Colon cancer Cancer skin CVA (cerebral vascular accident) Heart disease aortic valve replacement Father CHF (congestive heart failure) Sister Colon cancer Hypertension Brother Prostate cancer Surgical History (Updated 07/23/23 @ 11:25 by Dori Merida) Hx of repair of ear bone S/P cholecystectomy S/P colonoscopy S/P ectopic S/P tubal ligation Social History (Updated 06/14/23 @ 10:53 by Noemi Rian RN) Smoking Status: Never smoker alcohol intake: never substance use type: does not use caffeine: Yes Type: tea Vital Signs Vital Signs Vital Signs: 08/01/23 06:29 08/01/23 06:29 Temperature 97.6 F L Temperature Source Temporal Pulse Rate 70 Respiratory Rate 16 Respiratory Pattern Normal Blood Pressure 101/62 Blood Pressure Mean 75 Blood Pressure Source Monitor Blood Pressure Position Semi-Fowlers Blood Pressure Location Right Arm Pulse Ox 100 Oxygen Delivery Method Room Air Weight Weight: 60 kg Body Mass Index (BMI) 21.3 Results Lab / Micro Data 07/24/23 16:35 07/24/23 16:35
--- NOTE | 2023-08-01 09:33 | PCM.OPRPT ---
Report of Operation Date of Procedure: 08/01/23 Pre-Operative Diagnosis: Solid right renal mass Post-Operative Diagnosis: The same Surgery/Procedure Performed:: Laparoscopic robotic assisted right partial nephrectomy Description of Surgical Findings:: Patient was taken back to the operating room after smooth induction of anesthesia she was placed supine on the table Branch catheter was placed anesthesia was induced and the tracheal intubation was performed that she was then placed and flank position with the right side up, she was then padded and secured to the table making sure all pressure points were attended to and the body was in appropriate position. The abdomen was prepped and draped in usual sterile fashion she had a prior incision from the gallbladder extraction through a subcostal incision this was noted. I then marked out my trocar placement on her abdomen right arm left arm camera 5 mm trocar to retract the liver and a airflight 10 mm air seal port first use a Veress needle to introduced into the peritoneal cavity filled the peritoneal cavity CO2 gas and then once this was done we placed the camera trocar immediately saw that the camera trocar was right against some adhesions in the abdomen but fortunately able to place a lower port trocar and this was clear then using the lower port trocar the camera and the middle port these adhesions were taken down sharply with scissors to release all the adhesions from her prior surgery after this was done then the other port was placed at twelve 1012 mm port was placed and a 5 mm port was placed the robot was docked I then reflected the colon off the kidney there was some adhesions from prior colon mobilization this was taken down I then reached freed up the liver the liver had some adhesions from prior surgery onto the kidney this was freed up then was able to put the 5 mm trocar we used a grasper and the elevate the liver up hold the liver up out of the way then we opened up the we continue to dissect the colon off the kidney we kocherized the duodenum identify the hilum but the we did not do a hilar dissection since I plan to do an off clamp resection I then went and opened up the Gerota's fascia over the kidney opened up the fat over the kidney and then dissected up superior to the hilum was the tumor it was measured about 2 cm in size ultrasound was available but I did not use it since the tumor was fairly visible I then circumferentially dissected the tumor off the fat very carefully there was a perforating artery below the tumor that was very close to the tumors of the mixture in the that this was involved and was not after the tumor was completely freed up then we started our off clamp resection of the tumor slowly working following the capsule of the tumor I went into the parenchyma Fortune the tumor only went a few millimeters deep into the parenchyma and I was able to do an off clamp resection and resecting the tumor off the kidney hilum and then after the tumor was a resected off and then we placed Surgicel and Floseal in the defect there was 1 small bleeder this was cauterized and then Floseal and Surgicel were used to control the bleeding spot held pressure and then we used a stitch to approximate the defect using 0 Vicryl stitch and surgical clips once this was done then we lowered the pressure to a 5 and we inspected the site there was no bleeding from the resection site the tumor was then extracted the robot was then docked we then closed the 1012 trocar and all the other trocars were 5 mm in millimeter trocar these were not closed and then the patient's anesthetic was reversed she was taken back to the PACU in stable condition blood loss was very minimal about 25 cc urine output was adequate. I went speak to the family after successful off clamp resection of right renal mass Surgeon: Garret Longoria Type of Anesthesia: General Estimated Blood Loss (mL): 25 Admit VTE Documentation VTE Present on Admission: No VTE Mechan Device Prophylaxis: SCD's VTE Pharm Prophylaxis ordered?: No
[2023-08-01] MEDS: 0.9% Normal Saline (1000mL) 1,000 ML 125 ML IV ×2 (11:53→18:55)
[2023-08-01] MEDS: Acetaminophen 500 MG Tablet PO ×2 (13:32→21:40)
[2023-08-01] MEDS: Ketorolac 15 MG/ML Vial IV (15:32)
[2023-08-01] MEDS: 0.9% Saline Lock 10 ML Syringe IV (15:32)
[2023-08-01] MEDS: Montelukast 10 MG Tablet PO (21:41)
[2023-08-01] MEDS: Metoprolol Tartrate 25 MG Tablet PO (21:41)
[2023-08-02 00:38] VITALS: BP 109/64; PULSE 66; RESP 18; TEMP 36.4; O2SAT 100
[2023-08-02] MEDS: Ketorolac 15 MG/ML Vial IV (00:39)
[2023-08-02] MEDS: 0.9% Normal Saline (1000mL) 1,000 ML 125 ML IV (02:55)
[2023-08-02 06:15] VITALS: BP 101/58; PULSE 65; RESP 16; TEMP 36.6; O2SAT 100
--- NOTE | 2023-08-02 07:05 | PCM.PN.GU ---
Subjective Subjective 68-year-old female status post right partial nephrectomy, doing well, advance diet to regular, DC Branch, and she can go home later today. Objective Data Objective Data Vital Signs: Vital Signs Temp Pulse Resp BP Pulse Ox O2 Del Method O2 Flow Rate 97.6 F L 66 18 109/64 100 Nasal Cannula 2 08/02/23 00:38 08/02/23 00:38 08/02/23 00:38 08/02/23 00:38 08/02/23 00:38 08/02/23 00:38 08/02/23 00:38 Oxygen Flow Rate (L/min) 2 Oxygen Delivery Method Nasal Cannula Weight: 60 kg Body Mass Index (BMI) 21.3 Intake & Output: Intake and Output for Last 24 Hours 07/31/23 08/01/23 08/02/23 23:59 23:59 23:59 Intake Total 1189.67 / 1189.67 750 / 750 Output Total 575 / 575 900 / 900 Balance 614.67 / 614.67 -150 / -150 Lab / Micro Data 07/24/23 16:35 07/24/23 16:35
[2023-08-02 08:25] VITALS: PULSE 65
[2023-08-02] MEDS: Hydroxychloroquine 200 MG Tablet PO (08:25)
[2023-08-02] MEDS: Pantoprazole Sodium 20 MG Tablet PO (08:25)
[2023-08-02] MEDS: Metoprolol Tartrate 25 MG Tablet PO (08:25)
[2023-08-02] MEDS: Fluticasone 0.05% 1 SPRAY NASAL.SRY 2 SPRAY NASAL (08:25)
--- NOTE | 2023-08-02 09:47 | CASEMGMT ---
DANIEL WEEMS NOTE: Discharge order is in. RN CM to room. Pt sitting up in chair in room. Introduced self and role. Pt states she lives alone and is independent. She denies having any discharge planning needs or concerns. Tatiana MERAN DANIEL CM
--- NOTE | 2023-08-02 10:01 | PHA.DC_ITS ---
Pharmacy [facility] Pharmacy Service has performed discharge medication reconciliation and counseling for this patient. 1. DOCUSATE 100MG PO BID X 10 DAYS 2. OXYCODONE 5MG PO Q6H PRN The patient's discharge medication list was reviewed for discrepancies and discrepancies were resolved. The patient was counseled on the following discharge medications and changes in medications for homegoing were reviewed. The Reason for Use, instructions for use, and potential side effects were reviewed for all new medications. The patient's questions regarding all of their medications were answered. The patient was able to verbally demonstrate an understanding of their discharge medications. The patient demonstrated some understanding but would benefit from further education and reinforcement. The patient was not able to adequately demonstrate understanding. Medications at Discharge Home Medications calcium carbonate 600 mg-vitamin D3 20 mcg (800 unit) tablet 1 tab PO BIDCM 03/14/13 fluticasone propionate 50 mcg/actuation nasal spray,suspension 2 spray NASAL DAILY 03/14/13 omeprazole 20 mg capsule,delayed release 20 mg PO DAILY 03/14/13 montelukast 10 mg tablet 10 mg PO DAILY ALLERGIES 09/23/14 cholecalciferol (vitamin D3) 50 mcg (2,000 unit) capsule 2,000 unit PO DAILY hydroxychloroquine 200 mg tablet 200 mg PO DAILY 05/24/23 metoprolol tartrate 25 mg tablet 25 mg PO BID #60 tabs 05/29/23 alendronate sodium 35 mg PO SA 06/14/23 lactobacillus combination no.9 4 billion cell capsule (Adult 50 Plus Probiotic) 4,000 mmu cells PO DAILY 06/14/23 docusate sodium 100 mg capsule (Colace) 100 mg PO BID #20 caps 08/01/23 oxycodone 5 mg tablet 5 mg PO Q6H PRN pain 7 days #10 tabs 08/01/23
== END 2023-08-02 13:46 | disposition home or self-care (01) ==
LOC: SDC 06:03 → AC 06:05 → MS3 09:55
PROVIDERS: Anesthesiology; PCP Family Medicine; Referring Provider Urology; Visit Provider Urology
PROC: (CPT 50543; principal; 2023-08-01 07:10)
DX: C64.1 Malignant neoplasm of right kidney, except renal pelvis (principal); N18.30 Chronic kidney disease, stage 3 unspecified; D64.9 Anemia, unspecified; E78.2 Mixed hyperlipidemia; Z79.2 Long term (current) use of antibiotics; I12.9 Hypertensive chronic kidney disease with stage 1 through stage 4 chronic kidney disease, or unspecified chronic kidney disease; Z90.49 Acquired absence of other specified parts of digestive tract; Z98.51 Tubal ligation status; Z86.718 Personal history of other venous thrombosis and embolism; K21.9 Gastro-esophageal reflux disease without esophagitis; Z87.448 Personal history of other diseases of urinary system
CPT/HCPCS: 50543; S2900; 00862; 36415; 80048; 85027; 85610; 85730; 88307; 94668; J7030; J7120; A4216; J2405

== ENCOUNTER → 2023-09-03 | Outpatient (CLI) | payer MEDICARE, OTHER, SELFPAY ==
[2023-09-03 16:59] LABS: Absolute Lymphocyte Count 1.72 X10^3/uL (0.83-4.51); Absolute Neutrophil Count 3.8 X10^3/uL (2.0-7.7); Basophil# 0.06 X10^3/uL; Basophil% 0.9 % (0-1); Eosinophil# 0.32 X10^3/uL; Eosinophils% 4.7 % (0-5); Hematocrit 33.3 % (37-47); Hemoglobin 10.4 g/dL (12.0-15.0); Lymphocyte # 1.72 X10^3/ul (0.83-4.51); Lymphocyte % 25.4 % (19-41); Mean Corp Hgb Conc 31.2 g/dL (32-36); Mean Corpuscular Volume 92.8 fL (81-99); Mean Platelet Vol. 9.7 fl (6.2-12.0); Monocyte# 0.82 X10^3/uL; Monocyte% 12.1 % (0-10); NRBC Flagged by Analyzer 0 % (0-5); Neutrophil # 3.81 X10^3/uL (2.7-7.7); Neutrophil % 56.3 % (47-70); Platelet Count 231 K/mm3 (150-450); RBC Distribution Width CV 14.6 % (11.6-14.6); Red Blood Count 3.59 M/mm3 (4.2-5.4); White Blood Count 6.8 K/mm3 (4.4-11.0)
== END | disposition home or self-care (01) ==
LOC: LAB 16:36
PROVIDERS: PCP Family Medicine
DX: D64.9 Anemia, unspecified (principal)
CPT/HCPCS: 36415; 85025

== ENCOUNTER → 2023-10-26 | Outpatient (CLI) | payer MEDICARE, OTHER, SELFPAY ==
--- NOTE | 2023-10-26 13:00 | ECHOD_ITS ---
Reason For Study: Dilated Cardiomyopathy Procedure This was a 2D Doppler, Color Flow transthoracic echocardiogram. Myocardial strain analysis was performed in this exam to aid in the assessment of cardiac function. Exam performed in department. Left Ventricle Normal LV size. The estimated ejection fraction is 55 %. No evidence for diastolic dysfunction. No regional wall motion abnormalities noted. Right Ventricle Normal RV size. Normal systolic function. Atria Normal left atrium. Normal right atrium. No doppler evidence for ASD. Mitral Valve There is no mitral valve stenosis. Mild (1+) anteriorly directed mitral valve insufficiency. Tricuspid Valve There is no tricuspid stenosis. Trivial tricuspid valve insufficiency. Unable to estimate RV systolic pressure due to insufficient tricuspid regurgitant envelope. Aortic Valve Aortic sclerosis, no stenosis. Trisinus/trileaflet aortic valve. There is no aortic stenosis. Trivial aortic valve insufficiency. Pulmonic Valve There is no pulmonic valvular stenosis. Trivial pulmonic valve insufficiency. Great Vessels Mildly dilated aortic root. Pericardium/Pleural No pericardial effusion. MMode/2D Measurements & Calculations LVIDd: 4.8 cm IVSd: 0.96 cm Ao root diam: 4.2 cm LVIDs: 3.3 cm LVPWd: 0.82 cm RVDd: 3.2 cm FS: 30.9 % LAV(MOD-bp): 30.8 ml LVAd ap4: 24.9 cm2 SV(MOD-sp4): 38.3 ml LAV(MOD-bp) Indexed: 18.2 ml/m2 LVLd ap4: 6.6 cm LAV(MOD-sp2): 39.0 ml EDV(MOD-sp4): 76.9 ml LAV(MOD-sp4): 23.2 ml EDV(sp4-el): 79.6 ml LVAs ap4: 16.2 cm2 LVLs ap4: 5.7 cm ESV(MOD-sp4): 38.6 ml ESV(sp4-el): 39.1 ml EF(MOD-sp4): 49.8 % EF(sp4-el): 50.9 % SV(sp4-el): 40.5 ml LA A4 area: 10.6 cm2 LA dimension(2D): 3.2 cm RA A4 area: 8.9 cm2 TAPSE: 1.8 cm Time Measurements MV dec time: 0.27 sec Doppler Measurements & Calculations MV E max jordan: 41.2 cm/sec Lat Peak E' Jordan: 9.2 cm/sec Med Peak E' Jordan: 5.7 cm/sec MV A max jordan: 54.2 cm/sec E/E' lat: 4.5 E/E' med: 7.2 MV E/A: 0.76 Ao V2 max: 126.4 cm/sec LV V1 max: 87.6 cm/sec MV dec slope: 151.8 cm/sec2 Ao max P.4 mmHg LV V1 max P.1 mmHg Ao V2 mean: 96.2 cm/sec Ao mean P.9 mmHg Ao V2 VTI: 26.3 cm PA V2 max: 71.1 cm/sec TR max jordan: 231.3 cm/sec TR max P.4 mmHg ECHO/Echo Complete Interpretation Summary The estimated ejection fraction is 55 %. No evidence for diastolic dysfunction. Mild (1+) anteriorly directed mitral valve insufficiency. Trivial aortic valve insufficiency. Mildly dilated aortic root. Ordering Physician: Jerald Perez Referring Physician: Vinny Mancilla Performed By: Carol Ann Bella, KEISHA, RVT
== END | disposition home or self-care (01) ==
LOC: CVS 12:57
PROVIDERS: PCP Family Medicine; Referring Provider Internal Medicine Cardiovascular Disease; Visit Provider Internal Medicine Cardiovascular Disease
DX: R93.1 Abnormal findings on diagnostic imaging of heart and coronary circulation (principal); I34.0 Nonrheumatic mitral (valve) insufficiency; I35.1 Nonrheumatic aortic (valve) insufficiency
CPT/HCPCS: 93306

== ENCOUNTER → 2023-11-12 | Outpatient (CLI) | payer MEDICARE, OTHER, SELFPAY ==
[2023-11-12 17:12] LABS: Hematocrit 36.1 % (37-47); Hemoglobin 11.1 g/dL (12.0-15.0); Mean Corp Hgb Conc 30.7 g/dL (32-36); Mean Corpuscular Hgb 28.8 pg (27.0-32.0); Mean Corpuscular Volume 93.8 fL (81-99); Mean Platelet Vol. 9.9 fl (6.2-12.0); Platelet Count 278 K/mm3 (150-450); RBC Distribution Width SD 46.9 fl (35.1-43.9); Red Blood Count 3.85 M/mm3 (4.2-5.4); White Blood Count 5.2 K/mm3 (4.4-11.0)
[2023-11-12 17:29] LABS: Albumin, Serum 3.1 g/dL (3.2-5.0); BUN 11 mg/dL (7-18); BUN/Creat Ratio 9.6 RATIO (10-20); Calcium,Total 9.2 mg/dL (8.5-10.1); Chloride 110 mmol/L (98-107); Creatinine, Serum 1.14 mg/dL (0.55-1.02); EST Glomerular Filtration Rate 50 mL/min (>60); Est Glom Filt Rate - Afr Amer 61 mL/min (>60); Glucose 94 mg/dL (74-106); Phosphorus 4.1 mg/dL (2.5-4.9); Potassium 3.7 mmol/L (3.5-5.1); Sodium Level 139 mmol/L (136-145)
== END | disposition home or self-care (01) ==
LOC: LAB 16:42
PROVIDERS: PCP Family Medicine; Referring Provider Internal Medicine Nephrology; Visit Provider Internal Medicine Nephrology
DX: N18.30 Chronic kidney disease, stage 3 unspecified (principal)
CPT/HCPCS: 36415; 80069; 85027

== ENCOUNTER → 2024-01-10 | Outpatient (CLI) | payer MEDICARE, OTHER, SELFPAY ==
--- NOTE | 2024-01-10 07:49 | CT_ITS ---
EXAM: CT ABDOMEN AND PELVIS WITH INTRAVENOUS CONTRAST CLINICAL INDICATION: Malignant neoplasm of right kidney, except renal pelvis TECHNIQUE: Helically acquired images were obtained of the abdomen and pelvis with intravenous contrast. This CT exam was performed using one or more of the following dose reduction techniques: automated exposure control, adjustment of the mA and/or kV according to patient size, and/or use of iterative reconstruction technique. CONTRAST: Oral and amp; IV Read i-CAT and amp; 100mL [id number] RADIATION DOSE: CTDIvol = 10.90 mGy, DLP = 558.06 mGy-cm COMPARISON: CT abdomen and pelvis with and without contrast 06/26/2023. FINDINGS: LOWER THORAX: 1.9 cm round mass versus round atelectasis in the right posterior lung base. Just lateral to this mass is wedge-shaped consolidation and/or atelectasis in the right peripheral lung base. No cardiomegaly. No significant pericardial effusion. ABDOMEN: LIVER: Unremarkable. Homogeneous. No focal mass. GALLBLADDER AND BILE DUCTS: Unremarkable. No calcified gallstones. No gallbladder distention or wall edema. No intra- or extrahepatic biliary ductal dilation. PANCREAS: Unremarkable. No focal cystic or solid mass. SPLEEN: Unremarkable. Normal size without focal cystic or solid mass. ADRENALS: Unremarkable. No nodules. KIDNEYS AND URETERS: Interval resection of the round cortical solid mass in the medial aspect of the right kidney. Nonenhancing cysts in the upper pole and right lower renal pole are unchanged. 3 mm nonobstructing stone in the left cuneus unchanged. No left hydronephrosis. Solid mass in the left lower anterior renal cortex is approximately 1.5 cm. No obvious significant change. STOMACH AND BOWEL: Unremarkable. No stomach or bowel distention. No focal inflammatory change. Normal small bowel and stomach. PELVIS: APPENDIX: Normal appendix. BLADDER: Unremarkable. REPRODUCTIVE: Unremarkable as visualized. No suspicious abnormality of the anteverted uterus. No adnexal mass lesions. ABDOMEN and PELVIS: INTRAPERITONEAL SPACE: Unremarkable. No ascites or other fluid collection. No free air. BONES/JOINTS: Unremarkable. No suspicious lytic or blastic abnormality. SOFT TISSUES: Unremarkable. No discrete abdominal or pelvic wall hernia. VASCULATURE: Unremarkable. Abdominal aorta is non-dilated. LYMPH NODES: Unremarkable. No enlarged lymph nodes. CT/Abdomen/Pelvis WITH Contrast IMPRESSION: 1. Solid mass in the anterior cortex of the left lower renal pole measures approximately 1.5 cm. This remains worrisome for malignant neoplasm until proven otherwise. In my opinion, this is unchanged. 2. Interval resection of the solid mass in the medial aspect of the right renal parenchyma. Normal right renal vein, normal left renal vein and normal IVC. 3. 3 mm nonobstructing stone in the left kidney is unchanged. No left hydronephrosis. 4. 1.9 cm round pneumonia versus round mass versus round atelectasis in the right posterior lung base. 5. Small wedge-shaped atelectasis and/or consolidation in the peripheral aspect of the right lung base. 6. No other additional findings. Electronically Signed: Phil Butt MD at 9:33 EDT ,
[2024-01-10 08:15] LABS: CREATININE FINGERSTICK 1.2 mg/dL (0.55-1.02)
== END | disposition home or self-care (01) ==
LOC: CT 07:48
PROVIDERS: PCP Family Medicine; Referring Provider Urology; Visit Provider Urology
DX: C64.1 Malignant neoplasm of right kidney, except renal pelvis (principal)
CPT/HCPCS: 74177; Q9967

== ENCOUNTER → 2024-11-10 | Outpatient (CLI) | payer MEDICARE, OTHER, SELFPAY ==
[2024-11-10 13:15] LABS: Hematocrit 38.1 % (37-47); Hemoglobin 12.3 g/dL (12.0-15.0); Mean Corp Hgb Conc 32.3 g/dL (32-36); Mean Corpuscular Hgb 29.5 pg (27.0-32.0); Mean Corpuscular Volume 91.4 fL (81-99); Mean Platelet Vol. 10.2 fl (6.2-12.0); Platelet Count 267 K/mm3 (150-450); RBC Distribution Width CV 13.3 % (11.6-14.6); RBC Distribution Width SD 44.5 fl (35.1-43.9); Red Blood Count 4.17 M/mm3 (4.2-5.4); White Blood Count 6.7 K/mm3 (4.4-11.0)
[2024-11-10 13:47] LABS: Anion Gap 10 (5-15); BUN 19 mg/dL (4-19); BUN/Creat Ratio 14.8 RATIO (10-20); Calcium,Total 9.3 mg/dL (7.6-11.0); Carbon Dioxide 23.5 mmol/L (21.0-32.0); Chloride 106 mmol/L (98-108); EST Glomerular Filtration Rate 44 (>60); Glucose 92 mg/dL (70-99); Phosphorus 4.2 mg/dL (2.7-4.5); Potassium 4.3 mmol/L (3.3-5.1); Sodium Level 139 mmol/L (133-145)
--- OUTSIDE RECORDS SUMMARY | 2024-11-10 23:12 | XMS RPT_ITS | CCD ---
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 Vinny Briones Primary Care Provider Dr. Steve Crouch Attending Provider Dr. Steve Woods Emergency Provider Dr. Darius Garcia Admit Provider Unavailabl e Dr. Darius Garcia Other Provider Unavailabl e Dr. Jason Marques Other Provider Dr. Darius Zepeda Other Provider Dr. Ryley Garner Other Provider Dr. Steven Francisco Other Provider Dr. Benedicto Mccain Other Provider Dr. Brent Augustin Other Provider Unavailable Dr. Dontae Handy Other Provider Dr. Derek Obrien Other Provider Adilene MOLECULAR BIOLOGY SCIENTIST, MOLECULAR BIOLOGY SCIENTIST-C Carlotta Attending Provider Adilene MOLECULAR BIOLOGY SCIENTIST, MOLECULAR BIOLOGY SCIENTIST-C Carlotta Other Provider Dr. Garret Longoria Other Provider Dr. Sandi Arias Attending Provider Dr. Snadi Arias Other Provider [phone] Dr. [place] Attending Provider Vinny Briones MD Primary Care Provider [phone] Dr. Darius Garcia Referring Provider Unavail able Dr. Vinny Briones Referring Provider Dr. [place] Referring Provider Dr. Jerald Perez Attending Provider Dr. Vinny Briones Primary Care Provider Dr. Steve Crouch Attending Provider Dr. Darius Garcia Referring Provider Unavail able Dr. Vinny Briones Referring Provider Dr. Steve Woods Emergency Provider Dr. Darius Garcia Admit Provider Unavailabl e Garcia, Dr. Mccoy Other Provider Unavailabl e Dr. Jason Marques Other Provider Dr. Darius Zepeda Other Provider Dr. Ryley Garner Other Provider Dr. Steven Francisco Other Provider Dr. Benedicto Mccain Other Provider Dr. Brent Augustin Other Provider Unavailable Dr. Dontae Handy Other Provider Dr. Derek Obrien Other Provider Adilene MOLECULAR BIOLOGY SCIENTIST, MOLECULAR BIOLOGY SCIENTIST-C Carlotta Attending Provider Adilene MOLECULAR BIOLOGY SCIENTIST, MOLECULAR BIOLOGY SCIENTIST-C Carlotta Other Provider Dr. Garret Longoria Other Provider Dr. Sandi Arias Attending Provider [phone] Sandi Arias Other Provider [phone])[phone] [place] Attending Provider Dr. [place] Referring Provider Dr. Jerald Perez Attending Provider Vinny Briones MD Primary Care Provider SELF Referring Unavailable VINNY BRIONES Primary Care Unavailable MINDI THOMAS Attending Unavailable MINDI THOMAS Referring Unavailable VINNY BRIONES Primary Care Unavailable VINNY BRIONES Referring Unavailable VINNY BRIONES Primary Care Unavailable VINNY BRIONES Attending Unavailable ANALI, VINNY A Primary Care Unavailable ANALI, VINNY A Primary Care Unavailable YOKASTA MCNULTY Referring Unavailable ANALI, VINNY A Primary Care Unavailable ANALI, VINNY A Primary Care Unavailable ANALI, VINNY A Referring Unavailable ANALI, VINNY A Primary Care Unavailable PEDRITO MCDANIEL Attending Unavailable ANALI, VINNY A Primary Care Unavailable PEDRITO MCDANIEL Attending Unavailable ANALI, VINNY A Primary Care Unavailable ANALI, VINNY A Primary Care Unavailable MINDI THOMAS Referring Unavailable Garret Longoria Referring Unavailable Garret Longoria Attending Unavailable Anali, Vinny Primary Care Unavailable Ly Raygoza Referring Unavailable Ly Raygoza Attending Unavailable Anali, Vinny Primary Care Unavailable Ly Raygoza Attending Unavailable Anali, Vinny Primary Care Unavailable Jerald Perez Attending Unavailable Anali, Vinny Referring Unavailable Anali, Vinny Primary Care Unavailable Allergies Allergy Classification Reported Allergen(s) Allergy Type Date of Onset Reaction(s) Facility aMILoride / hydroCHLOROthiazide (1 source) aMILoride / hydroCHLOROthiazide Drug Allergy [address] [facility] Amoxicillin / Clavulanate (1 source) Amoxicillin / Clavulanate Drug Allergy 005 GI Upset [facility] Angiotensin Converting Enzyme (NOAH) Inhibitors (1 source) Lisinopril Drug Allergy [address] [facility] Cephalosporins (antibiotic) (1 source) Cephalexin Drug Allergy [address] [facility] Doxycycline (1 source) Doxycycline Drug Allergy [address] [facility] Work Phone: Macrolides (antibiotic) (1 source) Erythromycin Drug Allergy 023 GI Upset [facility] Penicillins (antibiotic) (1 source) Amoxicillin Drug Allergy [address] [facility] Work Phone: Pollen (1 source) Grass pollen Substance Allergy [address] [facility] Sulfonamides (antibiotic) (1 source) Sulfonamides (Antibiotic) Drug Allergy [address] [facility] (20 sources) Amoxicillin; Translations: [AMOXICILLIN] Drug Allergy 016 [facility] Work Phone: (20 sources) Doxycycline; Translations: [DOXYCYCLINE] Drug Allergy 11-18-2 005 Other: See Comments, Unknown [facility] Work Phone: (20 sources) Erythromycin Drug Allergy GI Upset [facility] (8 sources) HYDROcodone; Translations: [hydrocodone bitartrate] Drug Allergy 019 Vomiting [facility] (20 sources) Sulfonamides (Antibiotic); Translations: [SULFA (SULFONAMIDE ANTIBIOTICS)] Propensity to adverse reactions [address] [facility] Work Phone: (20 sources) aMILoride / hydroCHLOROthiazide; Translations: [AMILORIDE-HYDROCHLOR OTHIAZIDE] Drug Allergy Intolerance [facility] Work Phone: (20 sources) Amoxicillin / Clavulanate; Translations: [AMOXICILLIN-POT CLAVULANATE] Drug Allergy GI Upset [facility] Work Phone: (20 sources) Cephalexin; Translations: [CEPHALEXIN] Drug Allergy Intolerance [facility] Work Phone: (20 sources) Grass pollen; Translations: [GRASS POLLEN] Drug Allergy [address] [facility] Work Phone: (20 sources) House dust mite; Translations: [DUST MITES] Allergy to substance [address] [facility] Work Phone: (20 sources) Lisinopril; Translations: [LISINOPRIL] Drug Allergy [address] [facility] Work Phone: (20 sources) Tree; Translations: [TREES] Allergy to substance [address] [facility] Work Phone: (20 sources) ERYTHRAMYCIN [Other] Propensity to adverse reactions GI Upset [facility] Work Phone: (3 sources) Wheat gluten extract Drug Allergy 023 Food Allergy [facility] (1 source) Erythromycin; Translations: [ERYTHROMYCIN] Drug Allergy [facility] (1 source) OTHER; Translations: [OTHER] Propensity to adverse reactions (disorder) [facility] (1 source) Amoxicillin Drug Allergy [facility] (1 source) Doxycycline Drug Allergy [facility] (1 source) Erythromycin Drug Allergy [facility] (1 source) Gluten Drug allergy (disorder) [facility] Medications Current Medications Medication Drug Class(es) Dates Sig (Normalized) Sig (Original) alendronic acid 35 mg oral tablet (20 sources) Bisphosphonate Start: 06-14-2023 alendronate sodium Active 35 MG PO SA June 14, 2023 1:00am Comment on above: Take 35 mg by mouth one time a week. In AM with cup of water on empty stomach. Nothing else by mouth and stay upright for 30 min. azithromycin 250 mg oral tablet (2 sources) Macrolide Antimicrobial Start: 03-14-2024 End: 03-19-2024 azithromycin (ZITHROMAX Z-NEGRITO) 250 mg tablet Take 2 tablets day one, then, 1 tablet daily until gone. 6 tablet 03/14/2024 03/19/2024 Active bisacodyl 5 mg delayed release oral tablet (1 source) Stimulant Laxative Start: 01-13-2021 End: 01-13-2022 Bisacodyl (DULCOLAX) 5 mg tab Use as directed for Miralax / Gatorade Bowel Prep Kit 4 tablet 0 01/13/2021 01/13/2022 Discontinued (Course of therapy completed) Comment on above: Use as directed for Miralax / Gatorade Bowel Prep Kit calcium carbonate 1500 mg / cholecalciferol 0.01 mg oral tablet (7 sources) Vitamin D Start: 03-14-2013 take 1 tablet by mouth twice daily at mealtime Calcium Carbonate-Vitamin D3 Active 1 TABLET PO TWICE DAILY WITH MEALS March 14, 2013 12:00am Start: 03-14-2013 take 1 tablet by mago th twice daily at mealtime Calcium Carbonate-Vitamin D3 Active 1 TABLET PO TWICE DAILY WITH MEALS March 14, 2013 12:00am cefuroxime 500 mg oral tablet (2 sources) Cephalosporin Antibacterial Start: 09-11-2022 End: 09-18-2022 take 1 tablet by mouth twice daily cefUROXime (CEFTIN) 500 mg tablet Take 1 tablet by mouth twice daily for 7 days. 14 tablet 0 09/11/2022 09/18/2022 Active Comment on above: Take 1 tablet by [facility] twice daily for 7 days. cholecalciferol 0.05 mg oral capsule (20 sources) Vitamin D Start: 09-20-2017 take 2000 [IU] by mouth once daily Cholecalciferol (Vitamin D3) Active 2000 UNIT PO DAILY September 20, 2017 12:00am Comment on above: Take 1 tablet by [facility] once daily. docusate sodium 100 mg oral capsule (2 sources) Start: 08-01-2023 take 1 capsule by mouth twice daily Docusate Sodium (Colace) 100 mg capsule Active 100 MG PO TWICE A DAY August 01, 2023 1:00am doxycycline hyclate 100 mg oral tablet (6 sources) Tetracycline-class Drug Start: 01-05-2024 End: 01-10-2024 take 1 tablet by mouth twice daily doxycycline (VIBRA-TABS) 100 mg tablet Take 1 tablet by mouth two times a day for 5 days. 10 tablet 0 01/05/2024 01/10/2024 Active Start: 2023 End: 03-04-2023 take 1 tablet by mouth twice daily doxycycline (VIBRA-TABS) 100 mg tablet Take 1 tablet by mouth twice daily for 7 days. 14 tablet 0 2023 03/04/2023 Active Start: 09-11-2022 End: 09-18-2022 take 1 tablet by mouth twice daily doxycycline monohydrate 100 mg tablet Take 1 tablet by mouth twice daily for 7 days. 14 tablet 0 09/11/2022 09/18/2022 Active Comment on above: Take 1 tablet by [facility] twice daily for 7 days. ferrous sulfate (4 sources) take 18 mg by mouth once daily ferrous sulfate (IRON ORAL) Take 18 mg by mouth once daily. Active fluticasone propionate 0.05 mg/actuat metered dose nasal spray (20 sources) Corticosteroid Start: 3 Fluticasone Propionate Active 2 SPRAY NASAL DAILY March 14, 2013 12:00am Start: 07-21-2012 take 2 spray(s) by [facility] once daily fluticasone 50 mcg/actuation nasal spray Use 2 Sprays in each nostril once daily. Rinse mouth after use. 0 07/21/2012 Active Comment on above: Use 2 Sprays in each nostril once daily. Rinse mouth after use. hydroxychloroquine sulfate 200 mg oral tablet (20 sources) Antimalarial, Antirheumatic Agent Start: 04-14-20 20 hydrOXYchloroQUINE (PLAQUENIL) 200 mg tablet One tab odd days and two tabs even days, per Rheum[facility]. Faria 04/14/2020 Active Comment on above: One tab odd days and two tabs even days, per Rhe[facility], Dr. Faria L.acidophil/L.plantar/Bifid o 7 (UP4 PROBIOTICS ADULT ORAL) (20 sources) L.acidophil/L.pl camilo/Bifi do 7 (UP4 PROBIOTICS ADULT ORAL) Take by mouth. Active L.acidophil/L.pl camilo/Bifido 7 (UP4 PROBIOTICS ADULT ORAL) Take by mouth. 0 Active Comment on above: Take by mouth. Lactobacillus Combination No.9 (Adult 50 Plus Probiotic) 4 billion cell capsule (2 sources) Start: take 4 capsules by mouth once daily Lactobacillus Combination No.9 (Adult 50 Plus Probiotic) 4 billion cell capsule Active 4000 MMU CELLS PO DAILY June 14, 2023 1:00am administer with a meal Start: 06-14-2023 take 4 capsules by m outh once daily Lactobacillus Combination No.9 (Adult 50 Plus Probiotic) 4 billion cell capsule Active 4000 MMU CELLS PO DAILY June 14, 2023 12:00am administer with a meal metoprolol tartrate 25 mg oral tablet (20 sources) beta-Adrenergic Jason Start: 05-29-2023 take 1 tablet by mouth every twelve hours metoprolol tartrate, short acting, (LOPRESSOR) 25 mg tablet Take 1 tablet by mouth every 12 hours. 05/29/2023 Active Start: 05-29-2023 End: 08-23-2023 take 25 mg by mouth twice daily Metoprolol Tartrate Ac tive 25 MG PO TWICE A DAY 180 August 23, 2023 10:10am Comment on above: Take 1 tablet by mago th every 12 hours. montelukast 10 mg oral tablet (20 sources) Leukotriene Receptor Antagonist Start: 11-19-19 08 montelukast sodium(SINGULAIR 10 MG TAB) Indications: Allergic rhinitis, cause unspecified take one tablet at bedtime 90 4 11/19/2007 Active Comment on above: take one tablet at b edtime omeprazole 20 mg delayed release oral capsule (20 sources) Proton Pump Inhibitor Start: 12-22-19 11 take 1 capsule by mouth once daily omeprazole 20 mg ORAL capsule Indications: Esophageal reflux Take 1 capsule by mouth once daily. 90 capsule 3 12/21/2010 Active Comment on above: Take 1 capsule by mo [facility] once daily. oxyCODONE hydrochloride 5 mg oral tablet (2 sources) Opioid Agonist Start: 08-01-19 24 take 5 mg by mouth every six hours Oxycodone Active 5 MG PO EVERY 6 HOURS 10 7 August 01, 2023 polyethylene glycol 3350 19235 mg powder for oral solution (1 source) Osmotic Laxative Start: 01-14-20 End: 01-14-20 polyethylene glycol 3350 (MIRALAX, GLYCOLAX) 17 gram/dose powder Use as directed for Miralax / Gatorade Bowel Prep Kit 238 g 0 01/13/2021 01/13/2022 Discontinued (Course of therapy completed) Comment on above: Use as directed for Miralax / Gatorade Bowel Prep Kit sodium bicarbonate 650 mg oral tablet (20 sources) Start: 06-16-19 17 take 1 tablet by mouth once daily sodium bicarbonate 650 mg tablet Take 1 tablet by mouth once daily. 06/16/2016 Active Comment on above: Take 1 tablet by [facility] once daily. Completed/Discontinued Medications Medication Drug Class(es) Dates Sig (Normalized) Sig (Original) [id number] 200 actuat albuterol 0.09 mg/actuat metered dose inhaler (7 sources) beta2-Adrenergic Agonist Start: 04-16-2022 End: 09-15-2022 take 2 puff(s) by inhalation every four hours as needed albuterol HFA (VENTOLIN HFA) 90 mcg/actuation inhaler Indications: Wheezing Inhale 2 Puffs as instructed every 4 hours as needed. 18 g 04/16/2022 09/15/2022 Discontinued Comment on above: Inhale 2 Puffs as in structed every 4 hours as needed. benzonatate 100 mg oral capsule (10 sources) Non-narcotic Antitussive Start: 01-05-2024 End: 03-14-2024 take 1 capsule by mouth every eight hours as needed benzonatate (TESSALON PERLES) 100 mg capsule Take 1 capsule by mouth three times a day as needed for cough. 30 capsule 01/05/2024 03/14/2024 Discontinued Start: 05-22-2023 End: 09-07-2023 take 2 capsules by mouth every eight hours as needed benzonatate (TESSALON PERLE) 100 mg capsule Take 2 capsules by mouth three times a day as needed. 30 capsule 0 05/22/2023 09/07/2023 Discontinued Start: 02-22-2021 End: 01-13-2022 take 1 capsule by mouth every eight hours as needed benzonatate (TESSALON PERLES) 100 mg capsule Take 1 capsule by mouth three times daily as needed for cough. 21 capsule 0 02/22/2021 01/13/2022 Discontinued Comment on above: Take 1 capsule by mo [facility] three times daily as needed for cough. Take 2 capsules by out three times a day as needed. cyclobenzaprine hydrochloride 10 mg oral tablet (5 sources) Muscle Relaxant Start: End: take 1 tablet by mouth every eight hours as needed cyclobenzaprine (FLEXERIL) 10 mg tablet Take 1 tablet by mouth three times a day as needed for muscle spasm. 10 tablet 0 05/22/2023 09/07/2023 Discontinued Comment on above: Take 1 tablet by mago three times a day as needed for muscle spasm. levoFLOXacin 500 mg oral tablet (3 sources) Quinolone Antimicrobial Start: End: take 500 mg by mouth once daily Levofloxacin Discontinued 500 MG PO DAILY May 29, 2023 1:00am June 14, 2023 11:51am ondansetron 4 mg disintegrating oral tablet (19 sources) Serotonin-3 Receptor Antagonist Start: End: take 1 tablet by mouth every twelve hours as needed ondansetron orally disintegrating (ZOFRAN ODT) 4 mg disintegrating tablet Take 1 tablet by mouth every 12 hours as needed for nausea/vomiting. 10 tablet 05/22/2023 03/14/2024 Discontinued Start: 01-13-2021 End: 01-13-2022 take 1 tablet by mouth every eight hours as needed for nausea ondansetron (ZOFRAN) 4 mg tablet Indications: Polyp of colon, unspecified part of colon, unspecified type , Family history of colon cancer Take 1 tablet by mouth every 8 hours as needed for nausea/vomiting. 4 tablet 0 01/13/2021 01/13/2022 Discontinued Comment on above: Take 1 tablet by mago th every 8 hours as needed for nausea/vomiting. Take 1 tablet by mago th every 12 hours as needed for nausea/vomiting. promethazine hydrochloride 25 mg oral tablet (20 sources) Phenothiazine Start: 02-14-20 End: 05-22-20 23 take 1 tablet by mouth every six hours as needed promethazine (PHENERGAN) 25 mg tablet Take 1 tablet by mouth every 6 hours as needed for nausea/vomiting. 15 tablet 09/11/2022 05/22/2023 Discontinued Comment on above: Take 1 tablet by mago th every 6 hours as needed for nausea/vomiting. Problems Active Problems Problem Classification Problem Date Documented Da te Episodic/Chronic Acute and unspecified renal failure (8 sources) Acute renal failure syndrome; Translations: [Acute kidney failure, unspecified] 05-25-2023 Episodic Administrative/social admission (6 sources) Advance directive discussed with patient; Translations: [Other specified counseling] Onset: 03-14-2024 03-14-2024 Episodic Cancer of kidney and renal pelvis (20 sources) Malignant tumor of kidney; Translations: [Malignant neoplasm of right kidney, except renal pelvis] Onset: 09-17-2023 09-17-2023 Chronic Chronic kidney disease (20 sources) Chronic kidney disease stage 3; Translations: [CKD (chronic kidney disease) stage 3, GFR 30-59 ml/min] Onset: 11-10-2014 05-30-2021 Chronic Chronic kidney disease (3 sources) Chronic kidney disease; Translations: [Stage 3a chronic kidney disease (HCC)] Onset: 05-30-2021 Deficiency and other anemia (20 sources) Anemia of chronic disease; Translations: [Anemia in other chronic diseases classified elsewhere] Onset: 11-10-2014 05-30-2021 Chronic Deficiency and other anemia (1 source) Anemia in other chronic diseases classified elsewhere; Translations: [Anemia of chronic disease] Onset: 05-30-2021 Chronic Deficiency and other anemia (2 sources) Anemia; Translations: [Anemia, unspecified] 09-17-2023 Episodic Deficiency and other anemia (2 sources) Anemia, unspecified; Translations: [Anemia, unspecified type] Onset: 11-23-2023 Episodic Disorders of lipid metabolism (20 sources) Mixed hyperlipidemia; Translations: [Mixed hyperlipidemia] Onset: 07-30-2017 07-30-2017 Chronic Diverticulosis and diverticulitis (20 sources) Diverticulosis of colon; Translations: [Diverticulosis of large intestine without perforation or abscess without bleeding] Onset: 08-04-2005 Resolved: 06-16-2016 08-07-2018 Chronic Essential hypertension (20 sources) Essential hypertension; Translations: [Essential (primary) hypertension] Onset: 07-30-2017 07-30-2017 Chronic Immunity disorders (20 sources) Polyclonal gammopathy; 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] Onset: 06-27-2013 06-26-2016 Chronic Immunizations and screening for infectious disease (2 sources) Vaccination needed; Translations: [Encounter for immunization] Onset: 03-14-2024 03-14-2024 Episodic Osteoporosis (2 sources) Osteoporosis; Translations: [Age-related osteoporosis without current pathological fracture] Onset: 03-21-2024 03-21-2024 Chronic Other bone disease and musculoskeletal deformities (4 sources) Disorder of bone, unspecified; Translations: [Bone lesion] 05-25-2023 Episodic Other diseases of kidney and ureters (7 sources) Renal mass; Translations: [Other specified disorders of kidney and ureter] 05-25-2023 Chronic Other diseases of kidney and ureters (7 sources) Other specified disorders of kidney and ureter; Translations: [Unspecified disorder of kidney and ureter] Onset: 09-07-2023 05-25-2023 Chronic Other gastrointestinal disorders (20 sources) Celiac disease; Translations: [Celiac disease] 11-10-2014 Chronic Other lower respiratory disease (4 sources) Hypoxia; Translations: [Hypoxemia] 05-25-2023 Episodic Other lower respiratory disease (4 sources) Hypoxemia; Translations: [Hypoxemia] 05-25-2023 Episodic Other lower respiratory disease (1 source) Cough; Translations: [Acute cough] 09-11-2022 Episodic Other screening for suspected conditions (not mental disorders or infectious disease) (20 sources) Patient encounter status; Translations: [Encounter for screening mammogram for malignant neoplasm of breast] Onset: 07-30-2017 Episodic Other upper respiratory disease (20 sources) Allergic rhinitis; Translations: [Allergic rhinitis, unspecified] Onset: 04-21-2005 01-30-2018 Chronic Other upper respiratory infections (1 source) Bacterial sinusitis; Translations: [Chronic sinusitis, unspecified] 01-05-2024 Chronic Other upper respiratory infections (3 sources) Acute pansinusitis; Translations: [Acute pansinusitis, unspecified] Onset: 03-14-2024 2023 Episodic Screening and history of mental health and substance abuse codes (2 sources) Encounter for screening for depression; Translations: [Encounter for screening examination for other mental health and behavioral disorders] Onset: 03-14-2024 Episodic Systemic lupus erythematosus and connective tissue disorders (20 sources) Sjogren's syndrome; Translations: [Sicca syndrome, unspecified] Onset: 05-01-2006 Resolved: 12-02-2015 05-02-2017 Chronic Past or Other Problems Problem Classification Problem Date Documented Da te Episodic/Chronic Allergic reactions (17 sources) Radiation-induced dermatosis; Translations: [Other skin changes due to chronic exposure to nonionizing radiation] Onset: 9 Resolved: 6 12-02-2015 Episodic Esophageal disorders (20 sources) Gastroesophageal reflux disease without esophagitis; Translations: [Gastro-esophageal reflux disease without esophagitis] Onset: 5 Resolved: 2 12-12-2018 Chronic Fluid and electrolyte disorders (12 sources) Metabolic acidosis; Translations: [Metabolic acidosis] Onset: 4 11-20-2023 Episodic Gastritis and duodenitis (20 sources) Duodenitis; Translations: [Duodenitis without bleeding] Onset: 0 Resolved: 7 11-10-2014 Episodic Miscellaneous mental health disorders (17 sources) Emotional problems; Translations: [Other symptoms and signs involving emotional state] Onset: 6 Resolved: 7 09-11-2016 Episodic Other aftercare (20 sources) Drug therapy finding; Translations: [Other rat exterminator (current) drug therapy] Onset: 8 02-18-2018 Episodic Other aftercare (1 source) Other [facility] (current) drug therapy; Translations: [Medication management] Onset: 4 Episodic Other and unspecified benign neoplasm (20 sources) History of polyp of colon; Translations: [Personal history of colonic polyps] Onset: 9 Resolved: 7 08-07-2018 Episodic Other and unspecified benign neoplasm (17 sources) Benign neoplasm of colon; Translations: [Benign neoplasm of colon, unspecified] Onset: 6 Resolved: 2 07-27-2011 Episodic Other and unspecified benign neoplasm (17 sources) Polyp of colon; Translations: [Polyp of colon] Onset: 1 Resolved: 1 01-27-2021 Episodic Other infections; including parasitic (20 sources) History of herpes zoster; Translations: [Personal history of other infectious and parasitic diseases] Onset: 1 10-15-2020 Episodic Other inflammatory condition of skin (17 sources) Other specified erythematous conditions; Translations: [Other specified erythematous conditions] Onset: 9 Resolved: 6 12-02-2015 Episodic Other skin disorders (20 sources) Epidermoid cyst; Translations: [Epidermal cyst] Onset: 8 09-03-2017 Episodic Other skin disorders (17 sources) Disorder of sebaceous gland; Translations: [Other specified follicular disorders] Onset: 9 Resolved: 0 11-07-2009 Episodic Other skin disorders (17 sources) Solar lentigo; Translations: [Other melanin hyperpigmentation] Onset: 0 Resolved: 6 12-02-2015 Episodic Other skin disorders (17 sources) Seborrheic keratosis; Translations: [Other seborrheic keratosis] Onset: 0 Resolved: 6 12-02-2015 Episodic Other skin disorders (17 sources) Asteatosis cutis; Translations: [Xerosis cutis] Onset: 0 Resolved: 6 12-02-2015 Episodic Phlebitis; thrombophlebitis and thromboembolism (20 sources) H/O: Deep vein thrombosis; Translations: [Personal history of other venous thrombosis and embolism] Onset: 0 Resolved: 7 08-07-2018 Episodic Pneumonia (except that caused by tuberculosis or sexually transmitted disease) (15 sources) Bacterial pneumonia; Translations: [Unspecified bacterial pneumonia] Onset: 4 Episodic Residual codes; unclassified (17 sources) Family history of cancer of colon; Translations: [Family history of malignant neoplasm of digestive organs] Onset: 5 Resolved: 1 01-27-2021 Episodic Varicose veins of lower extremity (17 sources) Venous varices; Translations: [Asymptomatic varicose veins of unspecified lower extremity] Onset: 6 Resolved: 7 06-16-2016 Episodic Viral infection (20 sources) Postherpetic neuralgia; Translations: [Other postherpetic nervous system involvement] Onset: 1 10-15-2020 Episodic Results Test Name Value Interpretation Reference Range Facility [facility] 03-21-2024 CNOV Office Visit (OBGYWM ) RICHELLE CARDOZO ([id number]) 1955 F Date Time Provider Department 03/21/24 9:00 AM MINDI THOMAS OBDRE During your visit today, we recorded the following information about you: Blood pressure Weight Height 122/70 64 kg 1.646 m Mindi Thomas APRN.CNP 03/21/2024 9:18 AM Signed Patient declined farmworkersChely Shin is a 69 year old who presents for an annual gynecologic exam without complaints. Postmenopausal: Yes HRT use: No. 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 Celiac disease CKD (chronic kidney disease) stage 3, GFR 30-59 ml/min ([facility]) 2013 Diverticulosis of colon 08/04/2005 Duodenitis without mention of hemorrhage 04/12/2010 Encounter for Medicare annual wellness exam 01/30/2018 last done: 01/30/2018 Epidermal inclusion cyst 09/03/2017 Removed right knee 08/2017 Essential hypertension 07/30/2017 Family history of malignant neoplasm of gastrointestinal tract 01/07/2015 GERD (gastroesophageal reflux disease) 11/10/2014 GRANULOMA ANNULARE///ERYTHEMATOU S COND NEC 09/11/2008 History of DVT (deep vein thrombosis) 06/17/2009 First and only one was in lower extremity around 2006 History of shingles 10/15/202009/2020 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 Meehan Metabolic acidosis 11/20/2023 Chronic; on bicarb per renal (Dr. 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 Meehan PAST SURGICAL HISTORY OF 04/2013 Tubes placed in ears bilaterally PAST SURGICAL HISTORY OF 09/2014 Kidney bx SKIN BIOPSY HX STRESS TEST 03/2007 NL TONSILLECTOMY HX TX ECTOPIC W/O SALPINGAND/OOPHORECTOM Y Ectopic FAMILY HISTORY Problem Relation Age of [...] Never Smokeless tobacco: Never Vaping Use Vaping status: Never Used Substance Use Topics Alcohol use: No Drug use: No REVIEW OF SYSTEMS Abdomen: No abdominal pain, nausea, vomiting, diarrhea, or constipation. No bloating, early satiety, indigestion, or increased flatulence. Bladder: No dysuria, gross hematuria, urinary frequency, urinary urgency, or incontinence Breast: No breast lumps, nipple d/c, overlying s (more content not included)... Normal [facility] SCREENINGon 03-21-2024 [facility] SCREENING * * *Final Report* * * DATE OF EXAM: Mar 21 2024 8:42AM ARYAN [id number] - [facility] SCREENING / PROCEDURE REASON: Encounter for screening mammogram for malignant neoplasm of breast * * * * Physician Interpretation * * * * RESULT: [facility] [address] [place] [address] HISTORY: Patient is 69 years old and is seen for screening and is asymptomatic in both breasts. The patient has a history of kidney cancer at age 68. COMPARISON STUDIES: The present examination has been compared to prior imaging studies dated 01/07/2021 (mammogram), 01/13/2022 (mammogram), 01/17/2022 (mammogram), 02/09/2023 (mammogram) and 03/13/2023 (mammogram). MAMMOGRAM TECHNIQUE: The study was acquired using full field digital technology and interpreted from soft copy. Digital Breast Tomosynthesis (DBT) images were obtained and used to assist in the interpretation of this examination. Computer-aided detection was utilized by the radiologist in the interpretation of this examination. MAMMOGRAM FINDINGS: There are scattered areas of fibroglandular density. No suspicious masses, calcifications or other abnormalities are seen in either breast. There are no significant changes from the prior study. IMPRESSION: There is no mammographic evidence of malignancy in either breast. A routine follow-up mammogram in 1 year is recommended. BI-RADS Category 1: Negative RISK: Based on the Tyrer-Cuzick (TC) risk assessment model, this patient has a 5.0% lifetime risk of developing breast cancer, meaning they are at average risk for developing breast cancer. However, this is only an estimate based on available history provided on the patient's questionnaire. We encourage all patients to talk with their providers about these results, further recommendations for managing breast health, and appropriate supplemental screening options if the patient has dense breast tissue. Interpreting Radiologist: Mely Youngblood M.D. Electronically signed on: 03/24/2024 Hand Coke Drawer: EUGENIA Transcrieddie Date/Time: Mar 21 2024 8:27A Dictated by: MELY YOUNGBLOOD MD This examination was interpreted and the report reviewed and electronically signed by: MELY YOUNGBLOOD MD on Mar 24 2024 1:16PM EST [id number] Normal [facility] 03-15-2024 [facility] JULIANERICHELLE ([id number]) 1955 F Date Time Provider Department 03/15/24 VINNY BRIONES [facility] During your visit today, we recorded the following information about you: Vinny Briones MD 03/15/2024 8:28 AM Signed Let patient know her anemia is stable and better then several years ago. Her kidney functions are much better then several years ago. Her lipid panel and UA were good Radha Hanks RN 03/15/2024 8:52 AM Signed Patient calls and notified of results and providers instructions. Patient verbalizes understanding and thankful for the good news. Radha Hanks RN Allergies As of Date: 03/15/2024 Noted Allergy Reaction AMOXICILLIN 07/06/2015 2 - Rash HCTZ (AMILORIDE-HYDROCHLORO THIAZI*03/26/2006 5 - Intolerance Comments: REDNESS AND ITCHING SULFA (SULFONAMIDE ANTIBIOTICS) 06/12/2008 2 - Rash AUGMENTIN (AMOXICILLIN-POT CLAVUL*04/11/2005 8 - GI Upset CEPHALEXIN 11/13/2005 5 - Intolerance Comments: Sore mouth and tongue DUST MITES 11/28/2005 16 - Unknown ERYTHROMYCIN 05/22/2023 8 - GI Upset GRASS POLLEN 11/28/2005 16 - Unknown LISINOPRIL 04/21/2011 3 - Cough TREES 11/28/2005 16 - Unknown Date Reviewed: 03/14/2024 Reviewed by: Elisabeth Mortensen MA - Fully Assessed Reason for Visit: Results [95] Prescriptions as of 03/15/2024 - ferrous sulfate (IRON ORAL) Take 18 mg by mouth once daily. - azithromycin (ZITHROMAX Z-NEGRITO) 250 mg tablet Take 2 tablets day one, then, 1 tablet daily until gone. - metoprolol tartrate, short acting, (LOPRESSOR) 25 mg tablet Take 1 tablet by mouth every 12 hours. - L.acidophil/L.plantar/ Bifido 7 (UP4 PROBIOTICS ADULT ORAL) Take by [...] at bedtime Problem List As Of Date 03/15/2024 Noted Resolved Allergic rhinitis [J30.9] 04/21/2005 POLYP COLON [D12.6] 07/07/2005 07/27/2011 DIVERTICULOSIS COLON - NO HEMORRHAGE [K57.30] 08/04/2005 06/16/2016 Asymptomatic varicose veins [I83.90] 10/20/2005 06/16/2016 Predominant disturbance of emotions [R45.89] 05/01/2006 09/11/2016 Sicca syndrome (HCC) [M35.00] 05/01/2006 12/02/2015 GRANULOMA ANNULARE///ERYTHEMATOU S COND NEC [L53*09/11/2008 12/02/2015 XEROSIS///SEBACEOUS GLAND DIS NEC [L73.8] 09/11/2008 11/07/2009 ACTINIC DAMAGE///CHR SOLAR SKIN DAMAGE NOS [L57*10/08/2008 12/02/2015 Personal history of colonic polyps [Z86.0100] 03/15/2009 06/16/2016 DVT (deep venous thrombosis) ([facility]) [I82.409] 06/17/2009 06/16/2016 Solar lentigo [L81.4] 11/07/2009 [...] cancer [Z80.0] 01/07/2015 01/27/2021 Encounter for gynecological examination without*10/21/2015 12/02/2015 Medication management [Z79.899] 07/30/2017 Essential hypertension [I10] 07/30/2017 Mixed hyperlipidemia [E78.2] 07/30/2017 Epidermal inclusion cyst [L72.0] 09/03/2017 Colon cancer screening [Z12.11] 09/19/2017 Encounter for Medicare annual wellness exam [Z0*01/30/2018 History of DVT (deep vein thrombosis) [Z86.718] 06/17/2009 Diverticulosis of colon [K57.30] 08/04/2005 Personal history of colonic polyps [Z86.0100] 03/15/2009 Encounter for screening for diabetes mellitus [*08/07/2018 Post herpetic neuralgia [B02.29] 10/15/2020 History of shingles [Z86.19] 10/15/2020 Polyp of colon [K63.5] 01/27/2021 01/27/2021 Malignant neoplasm of right kidney, except preet*09/17/2023 Metabolic acidosis [E87.20] 11/20/2023 Advance directive discussed with patient [Z71.8*03/14/2024 Encounter Status:Closed by RADHA HANKS on 03/15/24 Normal [facility] CBC W Auto Differential pane l (Bld)on 03-14-2024 Basophils (Bld) [#/Vol] 0.09 10*3/uL Normal <0.11 [facility] Comment on above: Order Comment: Speci men Type: BLOOD SPECIMENOrdering Facility: [facility] Address: [address] [place] [address] Performed By: #### 5 7021-8 ####[facility] LABCLIA [id number] [place] [address] [place] Basophils/100 WBC (Bld) 1.1 % Normal [facility] Comment on above: Order Comment: Speci men Type: BLOOD SPECIMENOrdering Facility: [facility] Address: [address] [place] [address] Performed By: #### 5 7021-8 ####[facility] LABCLIA [id number] [place] [address] [place] Differential cell count method Nom (Bld) Auto Normal [facility] Comment on above: Order Comment: Speci men Type: BLOOD SPECIMENOrdering Facility: [facility] Address: [address] [place] [address] Performed By: #### 5 7021-8 ####[facility] LABCLIA [id number] [place] [address] [place] Eosinophils (Bld) [#/Vol] 0.11 10*3/uL Normal <0.46 [facility] Comment on above: Order Comment: Speci men Type: BLOOD SPECIMENOrdering Facility: [facility] Address: [address] [place] [address] Performed By: #### 5 7021-8 ####[facility] LABCLIA [id number] [place] [address] [place] Eosinophils/100 WBC (Bld) 1.3 % Normal [facility] Comment on above: Order Comment: Speci men Type: BLOOD SPECIMENOrdering Facility: [facility] Address: [address] [place] [address] Performed By: #### 5 7021-8 ####[facility] LABCLIA [id number] [place] [address] [place] Erythrocyte distribution width (RBC) [Ratio] 13.9 % Normal 11.5-15.0 [facility] Comment on above: Order Comment: Speci men Type: BLOOD SPECIMENOrdering Facility: [facility] Address: [address] [place] [address] Performed By: #### 5 7021-8 ####[facility] LABCLIA [id number] [place] [address] [place] Hematocrit (Bld) [Volume fraction] 36.1 % Normal 36.0-46.0 [facility] Comment on above: Order Comment: Speci men Type: BLOOD SPECIMENOrdering Facility: [facility] Address: [address] [place] [address] Performed By: #### 5 7021-8 ####[facility] LABCLIA [id number] [place] [address] [place] Hemoglobin (Bld) [Mass/Vol] 11.2 g/dL Low 11.5-15.5 [facility] Comment on above: Order Comment: Speci men Type: BLOOD SPECIMENOrdering Facility: [facility] Address: [address] [place] [address] Performed By: #### 5 7021-8 ####[facility] LABCLIA [id number] [place] [address] [place] Immature granulocytes (Bld) [#/Vol] 0.05 10*3/uL Normal <0.10 [facility] Comment on above: Order Comment: Speci men Type: BLOOD SPECIMENOrdering Facility: [facility] Address: [address] [place] [address] Performed By: #### 5 7021-8 ####[facility] LABCLIA [id number] [place] [address] [place] Immature granulocytes/100 WBC (Bld) 0.6 % Normal [facility] Comment on above: Order Comment: Speci men Type: BLOOD SPECIMENOrdering Facility: [facility] Address: [address] [place] [address] Performed By: #### 5 7021-8 ####[facility] LABCLIA [id number] [place] [address] [place] Lymphocytes (Bld) [#/Vol] 1.98 10*3/uL Normal 1.00-4.00 [facility] Comment on above: Order Comment: Speci men Type: BLOOD SPECIMENOrdering Facility: [facility] Address: [address] [place] [address] Performed By: #### 5 7021-8 ####[facility] LABIA [id number] [place] [address] [place] Lymphocytes/100 WBC (Bld) 23.4 % Normal [facility] Comment on above: Order Comment: Speci men Type: BLOOD SPECIMENOrdering Facility: [facility] Address: [address] [place] [address] Performed By: #### 5 7021-8 ####[facility] LABIA [id number] [place] [address] [place] MCH (RBC) [Entitic mass] 29.2 pg Normal 26.0-34.0 [facility] Comment on above: Order Comment: Speci men Type: BLOOD SPECIMENOrdering Facility: [facility] Address: [address] [place] [address] Performed By: #### 5 7021-8 ####[facility] LABIA [id number] [place] [address] [place] MCHC (RBC) [Mass/Vol] 31.0 g/dL Normal 30.5-36.0 [facility] Comment on above: Order Comment: Speci men Type: BLOOD SPECIMENOrdering Facility: [facility] Address: [address] [place] [address] Performed By: #### 5 7021-8 ####[facility] LABCLIA [id number] [place] [address] [place] MCV (RBC) [Entitic vol] 94.0 fL Normal 80.0-100.0 C [facility] Comment on above: Order Comment: Speci men Type: BLOOD SPECIMENOrdering Facility: [facility] Address: [address] [place] [address] Performed By: #### 5 7021-8 ####[facility] LABCLIA [id number] [place] [address] [place] Monocytes (Bld) [#/Vol] 1.08 10*3/uL High <0.87 [facility] Comment on above: Order Comment: Speci men Type: BLOOD SPECIMENOrdering Facility: [facility] Address: [address] [place] [address] Performed By: #### 5 7021-8 ####[facility] LABCLIA [id number] [place] [address] [place] Monocytes/100 WBC (Bld) 12.8 % Normal C [facility] Comment on above: Order Comment: Speci men Type: BLOOD SPECIMENOrdering Facility: [facility] Address: [address] [place] [address] Performed By: #### 5 7021-8 ####[facility] LABIA [id number] [place] [address] [place] Neutrophils (Bld) [#/Vol] 5.15 10*3/uL Normal 1.45-7.50 [facility] Comment on above: Order Comment: Speci men Type: BLOOD SPECIMENOrdering Facility: [facility] Address: [address] [place] [address] Performed By: #### 5 7021-8 ####[facility] LABCLIA [id number] [place] [address] [place] Neutrophils/100 WBC (Bld) 60.8 % Normal [facility] Comment on above: Order Comment: Speci men Type: BLOOD SPECIMENOrdering Facility: [facility] Address: [address] [place] [address] Performed By: #### 5 7021-8 ####[facility] LABCLIA [id number] [place] [address] [place] Nucleated RBC (Bld) [#/Vol] 10*3/uL Normal <0.01 [facility] Comment on above: Order Comment: Speci men Type: BLOOD SPECIMENOrdering Facility: [facility] Address: [address] [place] [address] Performed By: #### 5 7021-8 ####[facility] LABIA [id number] [place] [address] [place] Nucleated RBC/100 WBC (Bld) [Ratio] 0.0 /100 WBC Normal [facility] Comment on above: Order Comment: Speci men Type: BLOOD SPECIMENOrdering Facility: [facility] Address: [address] [place] [address] Performed By: #### 5 7021-8 ####[facility] LABIA [id number] [place] [address] [place] Platelet mean volume (Bld) [Entitic vol] 10.3 fL Normal 9.0-12.7 [facility] Comment on above: Order Comment: Speci men Type: BLOOD SPECIMENOrdering Facility: [facility] Address: [address] [place] [address] Performed By: #### 5 7021-8 ####[facility] LABIA [id number] [place] [address] [place] Platelets (Bld) [#/Vol] 312 10*3/uL Normal 150-400 [facility] Comment on above: Order Comment: Speci men Type: BLOOD SPECIMENOrdering Facility: [facility] Address: [address] [place] [address] Performed By: #### 5 7021-8 ####[facility] LABCLIA [id number] [place] [address] [place] RBC (Bld) [#/Vol] 3.84 10*6/uL Low 3.90-5.20 [facility] Comment on above: Order Comment: Speci men Type: BLOOD SPECIMENOrdering Facility: [facility] Address: [address] [place] [address] Performed By: #### 5 7021-8 ####[facility] LABCLIA [id number] [place] [address] [place] WBC (Bld) [#/Vol] 8.46 10*3/uL Normal 3.70-11.00 [facility] Comment on above: Order Comment: Speci men Type: BLOOD SPECIMENOrdering Facility: [facility] Address: [address] [place] [address] Performed By: #### 5 7021-8 ####[facility] LABCLIA [id number] [address] [place] CNOVon 03-14-2024 CNOV Office Visit (FAMPWS ) RICHELLE CARDOZO ([id number]) 1955 F Date Time Provider Department 03/14/24 1:40 PM VINNY BRIONES FAMPWS During your visit today, we recorded the following information about you: Pulse Blood pressure Weight Height 76/minute 105/70 64.6 kg 1.657 m Vinny Briones MD 03/14/2024 1:27 PM Addendum Consider getting the RSV and Tdap for tetanus vaccine from a local pharmacy Screening schedule The following prevention plan is recommended: Depression Screening Never done Anxiety Screening Never done Hepatitis C Screening Never done RSV Vaccine(1 - Risk 60-74 years 1-dose series) Never done Serum Creatinine due on 05/17/2016 Diabetes Screening due on 01/17/2021 Lipid Screening due on 01/17/2023 Advance Directive Discussion Never done DTaP,Tdap,Td Vaccine(3 - Td or Tdap) due on 01/01/2024 Influenza Vaccine(1) due on 02/03/2024 Covid-19 Vaccine( season) due on 02/03/2024 Mammogram Screening due on 02/10/2024 WHAT YOU CAN DO TO PREVENT FALLS Many falls can be prevented. By making some changes, you can lower your chances of falling. Four things YOU can do to prevent falls for you* and your caregiver 1. Begin a regular exercise program Exercise is one of the most important ways to lower your chances of falling. It makes you stronger and helps you feel better. Exercises that improve balance and coordination (like Richard Chi) are the most helpful. Lack of exercise leads to weakness and increases your chances of falling. Ask your doctor or health care provider about the best type of exercise program for you. 2. Have your health care provider review your medicines Have your doctor or pharmacist review all the medicines you take, even veyu-sai-gtyujnx medicines. As you get older, the way medicines work in your body can change. Some medicines, or combinations of medicines, can make you sleepy or dizzy and can cause you to fall. 3. Have your vision checked Have your eyes checked by an eye doctor at least once a year. You may be wearing the wrong glasses or have a condition like glaucoma or cataracts that limits your vision. Poor vision can increase your chances of falling. 4. Make your home safer About half of all falls happen at home. To make your home safer: Remove things you can trip over (like papers, books, clothes, and shoes) from stairs and places where you walk. Remove small throw rugs or use double-sided tape to keep the rugs from slipping. Keep items you use often in cabinets you can reach easily without using a step stool. Have grab bars put in next to your toilet and in the tub or shower. Use non-slip mats in the bathtub and on shower floors. Improve the lighting in your home. As you get older, you need brighter lights to see well. Hang light-weight curtains or shades to reduce glare. Have handrails and lights put in on all staircases. Wear shoes both inside and outside the house. Avoid going barefoot or wearing slippers. For more information, contact: Centers for Disease Control and Prevention www.cdc.gov/injury * This information may not apply if you have certain medical conditions. Vinny Briones MD 03/14/2024 2:00 PM Signed Richelle Cardozo is a 69 year old female here for a Medicare wellness visit. Medicare Health Risk Assessment General Health Good Exercise: Minutes/Day 10 min Exercise: Days/Week 2 days Alcohol: Daily Use Never Alcohol: Drinks/Day Patient does not drink Alcohol: 6 or more drinks Never Feel off balance no Concerns: Teeth/Dentures no Concerns: Sexual function NA Troubled by feelings no Frequency: Eating healthy diet daily ADLs requiring help none Safety precautions in home/vehicle Wears seat belts, no loose rugs, has stair rails, no grab bars Smoke, vape, chews tobacco never Difficulty hearing no Difficulty seeing Wearing glasses Current Providers Specialists: I have reviewed specialist-related care of the patient in the medical record. Current care team: Patient Care Team: Vinny Briones MD as PCP - General (Family Medicine) Dr. Meehan: Urology Optho Dr. Raygoza: renal Rheum Medical/Family history review Reviewed and updated problem list, medical/surgical/famil y/social history, medications, and allergies. Opioid use review Opioid Medications (last 90 days) No data to display Anxiety/Depression screening PHQ-9 Score: 0 . SONJA-7 Score: 0 . Recommendation: no further intervention at this time Cognitive screening Cognitive screening reviewed and No further action needed (score 3-5). Functional Observation Was the patient's Timed Up AND Go test unsteady or >= 12 seconds? No Advance Care Planning Patient did not wish or was not able to name a surrogate decision maker or provide an advance care plan Measurements BP 105/70 Pulse 76 Ht 165.7 cm (5' 5.25) Wt 64.6 (more content not included)... Normal [facility] Comprehensive metabolic 2000 panelon 03-14-2024 Albumin [Mass/Vol] 3.8 g/dL Low 3.9-4.9 [facility] Comment on above: Order Comment: Speci men Type: BLOOD SPECIMEN Ordering Facility: [facility] Address: [address] [place] [address] Performed By: #### L IPNF, 86413-4 #### [facility] CLIA [id number] [address] [place] [address] [place] ALP [Catalytic activity/Vol] 72 U/L Normal 34-123 [facility] Comment on above: Order Comment: Speci men Type: BLOOD SPECIMEN Ordering Facility: [facility] Address: [address] [place] [address] Performed By: #### L IPNF, 69091-0 #### [facility] CLIA [id number] [address] [place] [address] [place] ALT [Catalytic activity/Vol] 10 U/L Normal 7-38 [facility] Comment on above: Order Comment: Speci men Type: BLOOD SPECIMEN Ordering Facility: [facility] Address: [address] [place] [address] Performed By: #### L IPNF, 64266-2 #### [facility] CLIA [id number] [address] [place] [address] [place] Anion gap [Moles/Vol] 10 mmol/L Normal 8-15 [facility] Comment on above: Order Comment: Speci men Type: BLOOD SPECIMEN Ordering Facility: [facility] Address: [address] [place] [address] Performed By: #### L IPNF, 33320-3 #### [facility] CLIA [id number] [address] [place] [address] [place] AST [Catalytic activity/Vol] 19 U/L Normal 13-35 [facility] Comment on above: Order Comment: Speci men Type: BLOOD SPECIMEN Ordering Facility: [facility] Address: [address] [place] [address] Performed By: #### L IPNF, 82763-6 #### [facility] CLIA [id number] [address] [place] [address] [place] Bilirubin [Mass/Vol] 0.2 mg/dL Normal 0.2-1.3 [facility] Comment on above: Order Comment: Speci men Type: BLOOD SPECIMEN Ordering Facility: [facility] Address: [address] [place] [address] Performed By: #### L IPAYDE, 01487-1 #### [facility] CLIA [id number] [address] [place] [address] [place] Calcium [Mass/Vol] 9.4 mg/dL Normal 8.5-10.2 [facility] Comment on above: Order Comment: Speci men Type: BLOOD SPECIMEN Ordering Facility: [facility] Address: [address] [place] [address] Performed By: #### L IPAYDE, 33292-1 #### [facility] CLIA [id number] [address] [place] [address] [place] Chloride [Moles/Vol] 104 mmol/L Normal 98-107 [facility] Comment on above: Order Comment: Speci men Type: BLOOD SPECIMEN Ordering Facility: [facility] Address: [address] [place] [address] Performed By: #### L IPAYDE, 10802-3 #### [facility] CLIA [id number] [address] [place] [address] [place] CO2 [Moles/Vol] 23 mmol/L Normal 22-30 [facility] Comment on above: Order Comment: Speci men Type: BLOOD SPECIMEN Ordering Facility: [facility] Address: [address] [place] [address] Performed By: #### L IPNF, 75817-1 #### [facility] CLIA [id number] [address] [place] [address] [place] Creatinine [Mass/Vol] 1.32 mg/dL High 0.58-0.96 [facility] Comment on above: Order Comment: Abigail green Type: BLOOD SPECIMEN Ordering Facility: [facility] Address: [address] [place] [address] Performed By: #### L STEVEN, 04676-7 #### [facility] CLIA [id number] [address] [place] [address] [place] [facility] [place] Creatinine and Glomerular filtration rate.predicted panel (S/P/Bld) 44 mL/min/1.73m??? Low >=60 [facility] Comment on above: Order Comment: Abigail green Type: BLOOD SPECIMEN Ordering Facility: [facility] Address: [address] [place] [address] Result Comment: Digna mated Glomerular Filtration Rate (eGFR) is calculated using the 2020 CKD-EPI creatinine equation. This equation utilizes serum creatinine, sex, and age as parameters. The creatinine assay has traceable calibration to isotope dilution-mass spectrometry. Refer to KDIGO guidelines for clinical interpretation. In patients with unstable renal function, e.g. those with acute kidney injury, the eGFR may not accurately reflect actual GFR. Performed By: #### L STEVEN, 82527-7 #### [facility] CLIA [id number] [address] [place] [address] [place] Glucose [Mass/Vol] 94 mg/dL Normal 74-99 [facility] Comment on above: Order Comment: Abigail green Type: BLOOD SPECIMEN Ordering Facility: [facility] Address: [address] [place] [address] Result Comment: The [place] Diabetes Association (ADA) provides guidance for cutoff values for fasting glucose and random glucose. The ADA defines fasting as no caloric intake for at least 8 hours. Fasting plasma glucose results between 100 to 125 mg/dL indicate increased risk for diabetes (prediabetes). Fasting plasma glucose results greater than or equal to 126 mg/dL meet the criteria for diagnosis of diabetes. In the absence of unequivocal hyperglycemia, results should be confirmed by repeat testing. In a patient with classic symptoms of hyperglycemia or hyperglycemic crisis, random plasma glucose results greater than or equal to 200 mg/dL meet the criteria for diagnosis of diabetes. Reference: Standards of Medical Care in Diabetes 2016, [place] [employer] Association. Diabetes Care. 2016.39(Suppl 1). Performed By: #### L STEVEN, 56401-5 #### [facility] CLIA [id number] [address] [place] [address] [place] Potassium [Moles/Vol] 4.2 mmol/L Normal 3.7-5.1 [facility] Comment on above: Order Comment: Speci men Type: BLOOD SPECIMEN Ordering Facility: [facility] Address: [address] [place] [address] Performed By: #### L STEVEN, 29893-1 #### [facility] CLIA [id number] [address] [place] [address] [place] Protein [Mass/Vol] 8.1 g/dL High 6.3-8.0 [facility] Comment on above: Order Comment: Speci men Type: BLOOD SPECIMEN Ordering Facility: [facility] Address: [address] [place] [address] Performed By: #### L IPAYDE, 76044-8 #### [facility] CLIA [id number] [address] [place] [address] [place] Sodium [Moles/Vol] 137 mmol/L Normal 136-144 [facility] Comment on above: Order Comment: Speci men Type: BLOOD SPECIMEN Ordering Facility: [facility] Address: [address] [place] [address] Performed By: #### L IPNF, 67147-5 #### [facility] CLIA [id number] [address] [place] [address] [place] Urea nitrogen [Mass/Vol] 21 mg/dL Normal 7-21 [facility] Comment on above: Order Comment: Speci men Type: BLOOD SPECIMEN Ordering Facility: [facility] Address: [address] [place] [address] Performed By: #### L IPNF, 97232-8 #### [facility] CLIA [id number] [address] [place] [address] [place] [facility] [place] LIPID PANEL, NONFASTINGon Cholesterol [Mass/Vol] 150 mg/dL Normal <200 [facility] Comment on above: Order Comment: Speci men Type: BLOOD SPECIMEN Ordering Facility: [facility] Address: [address] [place] [address] Result Comment: <200 mg/dL, Desirable 200-239 mg/dL, Borderline high >239 mg/dL, High Performed By: #### L IPAYDE, 83286-8 #### [facility] CLIA [id number] [address] [place] [address] [place] HDL CHOLESTEROL, NF 52 mg/dL Normal >39 [facility] Comment on above: Order Comment: Speci men Type: BLOOD SPECIMEN Ordering Facility: [facility] Address: [address] [place] [address] Result Comment: 40-5 9 mg/dL, Acceptable >59 mg/dL, High: Negative risk factor for coronary heart disease <40 mg/dL, Low: Positive risk factor for coronary heart disease Performed By: #### L STEVEN, 90871-7 #### [facility] CLIA [id number] [address] [place] [address] [place] LDL CHOLESTEROL, NF 82 mg/dL Normal <100 [facility] Comment on above: Order Comment: Speci men Type: BLOOD SPECIMEN Ordering Facility: [facility] Address: [address] [place] [address] Result Comment: <100 mg/dL, Optimal 100-129 mg/dL, Near optimal/above optimal 130-159 mg/dL, Borderline high 160-189 mg/dL, High >189 mg/dL, Very high Secondary prevention optimal LDL Cholesterol levels are recommended to be < 70 mg/dL Performed By: #### L IPAYDE, 15716-2 #### [facility] CLIA [id number] [address] [place] [address] [place] LDL/HDL RATIO, NF 1.58 mg/dL Normal <2.54 [facility] Comment on above: Order Comment: Abiagil green Type: BLOOD SPECIMEN Ordering Facility: [facility] Address: [address] [place] [address] Result Comment: Edna newman: 1. National Cholesterol Education Program ATP III Guideline At-A-Glance Quick Desk Reference: National Heart, Lung, and Blood [place]. National Institutes of Health. 2001: NIH Publication No. 01-3305. 2. An International Atherosclerosis Society position paper: global recommendations for the management of dyslipidemia: executive summary, Atherosclerosis. 2014: 232(2):410-413. Performed By: #### L STEVEN, 40020-1 #### [facility] CLIA [id number] [address] [place] [address] [place] NON HDL CHOL, NF 98 mg/dL Normal <130 [facility] Comment on above: Order Comment: Abigail green Type: BLOOD SPECIMEN Ordering Facility: [facility] Address: [address] [place] [address] Result Comment: <130 mg/dL, Optimal 130-159 mg/dL, Near optimal/above optimal 160-189 mg/dL, Borderline high 190-219 mg/dL, High >219 mg/dL, Very high Secondary prevention optimal non HDL Cholesterol levels are recommended to be <100 mg/dL Performed By: #### L STEVEN, 82320-6 #### [facility] CLIA [id number] [address] [place] [address] [place] T CHOL/HDL RATIO NF 2.88 mg/dL Normal <5.10 [facility] Comment on above: Order Comment: Abigail green Type: BLOOD SPECIMEN Ordering Facility: [facility] Address: [address] [place] [address] Performed By: #### L IPAYDE, 98383-5 #### [facility] CLIA [id number] [address] [place] [address] [place] TRIGLYCERIDES, NF 81 mg/dL Normal <150 [facility] Comment on above: Order Comment: Speci men Type: BLOOD SPECIMEN Ordering Facility: [facility] Address: [address] [place] [address] Result Comment: <150 mg/dL, Normal 150-199 mg/dL, Borderline high 200-499 mg/dL, High >499 mg/dL, Very high Performed By: #### L IPNF, 25025-7 #### [facility] CLIA [id number] [address] [place] [address] [place] VLDL CHOLESTEROL, NF 16 mg/dL Normal <30 [facility] Comment on above: Order Comment: Speci men Type: BLOOD SPECIMEN Ordering Facility: [facility] Address: [address] [place] [address] Performed By: #### L IPNF, 99194-0 #### [facility] CLIA [id number] [address] [place] [address] [place] Urinalysis complete panel (U )on 03-14-2024 Bacteria LM.HPF (Urine sed) [#/Area] Negative Normal Negative [facility] Comment on above: Order Comment: Speci men Type: URINE SPECIMENOrdering Facility: [facility] Address: [address] [place] [address] Performed By: #### 2 4356-8 ####[facility] [id number] [place] [address] [place] Bilirubin Ql (U) Negative Normal Negative [facility] Comment on above: Order Comment: Speci men Type: URINE SPECIMENOrdering Facility: [facility] Address: [address] [place] [address] Performed By: #### 2 4356-8 ####[facility] [id number] [place] [address] [place] Clarity (Unsp spec) Clear Normal Clear [facility] Comment on above: Order Comment: Speci men Type: URINE SPECIMENOrdering Facility: [facility] Address: [address] [place] [address] Performed By: #### 2 4356-8 ####[facility] [id number] [place] [address] [place] Color (U) Yellow Normal Yellow [facility] Comment on above: Order Comment: Speci men Type: URINE SPECIMENOrdering Facility: [facility] Address: [address] [place] [address] Performed By: #### 2 4356-8 ####[facility] [id number] [place] [address] [place] Epithelial cells LM.HPF (Urine sed) [#/Area] None Seen Normal [facility] Comment on above: Order Comment: Speci men Type: URINE SPECIMENOrdering Facility: [facility] Address: [address] [place] [address] Performed By: #### 2 4356-8 ####[facility] [id number] [place] [address] [place] Glucose Test strip (U) [Mass/Vol] Negative Normal Negative [facility] Comment on above: Order Comment: Speci men Type: URINE SPECIMENOrdering Facility: [facility] Address: [address] [place] [address] Performed By: #### 2 4356-8 ####[facility] [id number] [place] [address] [place] Hemoglobin Ql (U) Negative Normal Negative [facility] Comment on above: Order Comment: Speci men Type: URINE SPECIMENOrdering Facility: [facility] Address: [address] [place] [address] Performed By: #### 2 4356-8 ####[facility] [id number] [place] [address] [place] Hyaline casts (Urine sed) [#/Area] 0 /[LPF] Normal 0 /LPF [facility] Comment on above: Order Comment: Speci men Type: URINE SPECIMENOrdering Facility: [facility] Address: [address] [place] [address] Performed By: #### 2 4356-8 ####[facility] [id number] [place] [address] [place] Ketones Ql (U) Negative Normal Negative [facility] Comment on above: Order Comment: Speci men Type: URINE SPECIMENOrdering Facility: [facility] Address: [address] [place] [address] Performed By: #### 2 4356-8 ####[facility] [id number] [place] [address] [place] Leukocyte esterase Test strip Ql (U) Negative Normal Negative [facility] Comment on above: Order Comment: Speci men Type: URINE SPECIMENOrdering Facility: [facility] Address: [address] [place] [address] Performed By: #### 2 4356-8 ####[facility] [id number] [place] [address] [place] Nitrite Ql (U) Negative Normal Negative [facility] Comment on above: Order Comment: Speci men Type: URINE SPECIMENOrdering Facility: [facility] Address: [address] [place] [address] Performed By: #### 2 4356-8 ####[facility] [id number] [place] [address] [place] pH (U) 6.5 [pH] Normal <8.5 [facility] Comment on above: Order Comment: Speci men Type: URINE SPECIMENOrdering Facility: [facility] Address: [address] [place] [address] Performed By: #### 2 4356-8 ####[facility] [id number] [place] [address] [place] Protein (U) [Mass/Vol] Negative Normal Negative Cl [facility] Comment on above: Order Comment: Speci men Type: URINE SPECIMENOrdering Facility: [facility] Address: [address] [place] [address] Performed By: #### 2 4356-8 ####[facility] [id number] [place] [address] [place] RBC LM.HPF (Urine sed) [#/Area] 0-2 /HPF Normal 0-2 /HPF [facility] Comment on above: Order Comment: Speci men Type: URINE SPECIMENOrdering Facility: [facility] Address: [address] [place] [address] Performed By: #### 2 4356-8 ####[facility] [id number] [place] [address] [place] Specific gravity (U) [Rel density] 1.006 Normal 1.005-1.030 [facility] Comment on above: Order Comment: Speci men Type: URINE SPECIMENOrdering Facility: [facility] Address: [address] [place] [address] Performed By: #### 2 4356-8 ####[facility] [id number] [place] [address] [place] Urobilinogen Ql (U) 0.2 EU/dL Normal 0.2-1.0 EU/dL [facility] Comment on above: Order Comment: Speci men Type: URINE SPECIMENOrdering Facility: [facility] Address: [address] [place] [address] Performed By: #### 2 4356-8 ####[facility] [id number] [place] [address] [place] WBC LM.HPF (Urine sed) [#/Area] 0-5 /HPF Normal 0-5 /HPF [facility] Comment on above: Order Comment: Speci men Type: URINE SPECIMENOrdering Facility: [facility] Address: [address] [place] [id number] Performed By: #### 2 4356-8 ####[facility] [id number] [id number] [address] [place] Abdomen/Pelvis WITH Contrast on 01-10-2024 Abdomen/Pelvis WITH Contrast [facility] [address] [place], [place] [address] Abdomen/Pelvis WITH Contrast MR#: [id number] Acct: [id number] Name: RICHELLE CARDOZO BETO Rep #: [id number] : 1955 F 68 From: Phil Butt MD PCP: Dr. Vinny Briones MD Status: REG CLI Study: Abdomen/Pelvis WITH Contrast Date of Exam: 01/25 Exam# [id number] Ordering Dr: Garret Longoria [place] [id number] EXAM: CT ABDOMEN AND PELVIS WITH INTRAVENOUS CONTRAST CLINICAL INDICATION: Malignant neoplasm of right kidney, except renal pelvis TECHNIQUE: Helically acquired images were obtained of the abdomen and pelvis with intravenous contrast. This CT exam was performed using one or more of the following dose reduction techniques: automated exposure control, adjustment of the mA and/or kV according to patient size, and/or use of iterative reconstruction technique. CONTRAST: Oral and amp; IV Read i-CAT and amp; 100mL [id number] RADIATION DOSE: CTDIvol = 10.90 mGy, DLP = 558.06 mGy-cm COMPARISON: CT abdomen and pelvis with and without contrast 06/26/2023. FINDINGS: LOWER THORAX: 1.9 cm round mass versus round atelectasis in the right posterior lung base. Just lateral to this mass is wedge-shaped consolidation and/or atelectasis in the right peripheral lung base. No cardiomegaly. No significant pericardial effusion. ABDOMEN: LIVER: Unremarkable. Homogeneous. No focal mass. GALLBLADDER AND BILE DUCTS: Unremarkable. No calcified gallstones. No gallbladder distention or wall edema. No intra- or extrahepatic biliary ductal dilation. PANCREAS: Unremarkable. No focal cystic or solid mass. SPLEEN: Unremarkable. Normal size without focal cystic or solid mass. ADRENALS: Unremarkable. No nodules. KIDNEYS AND URETERS: Interval resection of the round cortical solid mass in the medial aspect of the right kidney. Nonenhancing cysts in the upper pole and right lower renal pole are unchanged. 3 mm nonobstructing stone in the left cuneus unchanged. No left hydronephrosis. Solid mass in the left lower anterior renal cortex is approximately 1.5 cm. No obvious significant change. STOMACH AND BOWEL: Unremarkable. No stomach or bowel distention. No focal inflammatory change. Normal small bowel and stomach. PELVIS: APPENDIX: Normal appendix. BLADDER: Unremarkable. REPRODUCTIVE: Unremarkable as visualized. No suspicious abnormality of the anteverted uterus. No adnexal mass lesions. ABDOMEN and PELVIS: INTRAPERITONEAL SPACE: Unremarkable. No ascites or other fluid collection. No free air. BONES/JOINTS: Unremarkable. No suspicious lytic or blastic abnormality. SOFT TISSUES: Unremarkable. No discrete abdominal or pelvic wall hernia. VASCULATURE: Unremarkable. Abdominal aorta is non-dilated. LYMPH NODES: Unremarkable. No enlarged lymph nodes. CT/Abdomen/Pelvis WITH Contrast IMPRESSION: 1. Solid mass in the anterior cortex of the left lower renal pole measures approximately 1.5 cm. This remains worrisome for malignant neoplasm until proven otherwise. In my opinion, this is unchanged. 2. Interval resection of the solid mass in the medial aspect of the right renal parenchyma. Normal right renal vein, normal left renal vein and normal IVC. 3. 3 mm nonobstructing stone in the left kidney is unchanged. No left hydronephrosis. 4. 1.9 cm round pneumonia versus round mass versus round atelectasis in the right posterior lung base. 5. Small wedge-shaped atelectasis and/or consolidation in the peripheral aspect of the right lung base. 6. No other additional findings. Electronically Signed: Phil Butt MD at 9:33 EDT , CC: Dr. Vinny Briones MD; Dr. Garret Longoria MD Hand Coke Drawer: Signed Normal [facility] CREATININE FINGERSTICKon Creatinine [Mass/Vol] 1.2 mg/dL High 0.55-1.02 [facility] Comment on above: Performed By: #### L 9100.0200 #### [facility] [address] [place], [address] GFR/1.73 sq M.predicted among non-blacks MDRD (S/P/Bld) [Vol rate/Area] 46.0000 mL/min/{1.73_m2} Low >60 [facility] Comment on above: Performed By: #### L 9100.0200 #### [facility] [address] [place], [address] CNOVon 01-05-2024 CNOV Office Visit (UCTR ) JULIANEDENY DonohueH Delmi ([id number]) 1955 F Date Time Provider Department 01/05/24 2:15 PM MINDI THOMAS [facility] During your visit today, we recorded the following information about you: Temperature Pulse Respiration Blood pressure 97.8 degrees 92/minute 16/minute 104/68 Weight 62.9 kg Mindi Thomas APRN.CNP 01/05/2024 2:25 PM Signed This note was created using [employer]. Subjective Richelle Cardozo is a 68 year old female. Symptoms start about 1 month ago. She just had the cough for about 2 wks , then for the past 2 wks the other symptoms have become worse. Using OTC cough/cold meds. Review of Systems HENT: Positive for congestion, rhinorrhea, sinus pain and sore throat. Respiratory: Positive for cough. Neurological: Positive for headaches. Objective BP 104/68 (BP Site: Left Arm, BP Position: Sitting, BP Cuff Size: Regular Adult) Pulse 92 Temp 36.6 ?C (97.8 ?F) Resp 16 Wt 62.9 kg (138 lb 10.7 oz) SpO2 99% BMI 22.90 kg/m? Physical Exam HENT: Head: Normocephalic. Nose: Congestion and rhinorrhea present. Mouth/Throat: Mouth: Mucous membranes are moist. Cardiovascular: Rate and Rhythm: Normal rate. Pulmonary: Breath sounds: Normal breath sounds. Skin: General: Skin is warm. Neurological: Mental Status: She is alert. Assessment and Plan ASSESSMENT/PLAN: 1. Bacterial sinusitis - ICD9: 473.9, 041.9, ICD10: J32.9, B96.89 - Will begin treatment with as per antibiotic as written, see orders - The patient should also be given OTC decongestants prn, OTC cough and cold meds as needed, and warm salt water gargles, throat lozenges and/or OTC throat spray as needed for the first 5-7 days of treatment. - Supportive care with plenty of fluids, rest, and analgesia prn. - Follow up in 3-5 days if symptoms persist or worsen. Mindi Thomas, MANAGER PARTY.HAND WOOD SANDER Allergies As of Date: 01/05/2024 Noted Allergy Reaction AMOXICILLIN 07/06/2015 2 - Rash HCTZ (AMILORIDE-HYDROCHLORO THIAZI*03/26/2006 5 - Intolerance Comments: REDNESS AND ITCHING SULFA (SULFONAMIDE ANTIBIOTICS) 06/12/2008 2 - Rash ERYTHROMYCIN 05/22/2023 8 - GI Upset AUGMENTIN (AMOXICILLIN-POT CLAVUL*04/11/2005 8 - GI Upset CEPHALEXIN 11/13/2005 5 - Intolerance Comments: Sore mouth and tongue DOXYCYCLINE 04/21/2005 16 - Unknown Comments: Headache DUST MITES 11/28/2005 16 - Unknown GRASS POLLEN 11/28/2005 16 - Unknown LISINOPRIL 04/21/2011 3 - Cough TREES 11/28/2005 16 - Unknown Date Reviewed: 01/05/2024 Reviewed by: Roseanne Orellana MA - Fully Assessed Reason for Visit: Cough [28] Cmt: Facial pressure AND pain, nasal congestion x 10 days, reports chronic cough x 1 month. Primary Visit Diagnosis:Bacterial sinusitis [J32.9, B96.89] Order(s):doxycycline (VIBRA-TABS) 100 mg tabletTake 1 tablet by mouth two times a day for 5 days.Disp: 10 tabletRfl: 0 benzonatate (TESSALON PERLES) 100 mg capsuleTake 1 capsule by mouth three times a day as needed for cough.Disp: 30 capsuleRfl: 0 Prescriptions as of 01/05/2024 - doxycycline (VIBRA-TABS) 100 mg tablet Take 1 tablet by mouth two times a day for 5 days. - benzonatate (TESSALON PERLES) 100 mg capsule Take 1 capsule by mouth three times a day as needed for cough. - metoprolol tartrate, short acting, (LOPRESSOR) 25 mg tablet Take 1 tablet by mouth every 12 hours. - ondansetron orally disintegrating (ZOFRAN ODT) 4 mg disintegrating tablet Take 1 tablet by mouth every 12 hours as needed for nausea/vomiting. 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 Normal [facility] Cardiology Visit Reporton Cardiology Visit Report [facility] [address] [place] [address] OFFICE VISIT Date of Service: 12/07/23 MR#: [id number] Acct: [id number] Name: RICHELLE CARDOZO Rep #: [id number] : 1955 Provider: Dr. Jerald gatica MD Age/Sex: 68/F [place] [facility] [place] Status: Signed HPI HPI History of Present Illness Details: Patient is a 68-year-old white female being seen for follow-up. 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 She had been admitted for post viral pneumococcal pneumonia. An echocardiogram showed some LV dysfunction at that time. She was started on guideline directed medical therapy and follow-up in the office June 14, 2023. We repeated her echocardiogram October 26, 2023 her EF improved to 55% there was no evidence of diastolic dysfunction she had 1+ mitral regurgitation and trivial aortic insufficiency with a mildly dilated aortic root. The patient reports that she is up and about regular activity level she denies any anginal type symptoms denies any PND orthopnea denies any lower extremity edema and she is really back to normal activity. Incidentally the patient was found to have a 2.2 cm solid mass in the right renal upper lobe. This was some likely resected by Dr. 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 She is considered cured. The patient is tolerating her current medical regimen without incident blood pressure is well- controlled at 101/65 heart rate 65 and regular. Intake Vital Signs 08/01/23 06:29 12/07/23 10:53 Height 5 ft 6 in 5 ft 6 in Weight: 139 lb BMI 22.4 BP 101/65 Blood Pressure Location Lt brachial Position Sitting Respiration 18 Pulse 65 Pulse Source Monitor Pulse Oximetry (%) 96 Oxygen Delivery Method room air Intake Visit Reasons: 6 M Advertising Coordinator Required: No Accompanied by: Self Is patient in pain?: No Allergies gluten Allergy (Verified 12/07/23 10:54) Food Allergy amoxicillin Adverse Reaction (Verified 12/07/23 10:54) Nausea doxycycline Adverse Reaction (Verified 12/07/23 10:54) Other erythromycin base (Erythromycin Base) Adverse Reaction (Verified 12/07/23 10:54) Nausea hydrocodone bitartrate (From Vicodin) Adverse Reaction (Verified 12/07/23 10:54) Vomiting Sulfa (Sulfonamide Antibiotics) Adverse Reaction (Verified 12/07/23 10:54) Nausea Medications ???Medication ???Instructions ???Recorded ???Confirmed ???Type calcium carbonate 600 mg-vitamin 1 tab PO BIDCM 03/14/13 12/07/23 History D3 20 mcg (800 unit) tablet fluticasone propionate 50 2 spray NASAL DAILY 03/14/13 12/07/23 History mcg/actuation nasal spray,suspension omeprazole 20 mg capsule,delayed 20 mg PO DAILY 03/14/13 12/07/23 History release montelukast 10 mg tablet 10 mg PO DAILY ALLERGIES 09/23/14 12/07/23 History cholecalciferol (vitamin D3) 50 2,000 unit PO DAILY 09/20/17 12/07/23 History mcg (2,000 unit) capsule hydroxychloroquine 200 mg tablet 200 mg PO DAILY 05/24/23 12/07/23 History alendronate sodium 35 mg PO SA 06/14/23 12/07/23 History lactobacillus combination no.9 4 4,000 mmu cells PO DAILY 06/14/23 12/07/23 History billion cell capsule (Adult 50 Plus Probiotic) metoprolol tartrate 25 mg tablet 25 mg PO BID #180 tabs 08/23/23 12/07/23 Rx iron, carbonyl 18 mg iron chewable 18 mg PO DAILY 12/07/23 12/07/23 History tablet mecobalamin (vitamin B12) 1,000 1,000 mcg PO DAILY 12/07/23 12/07/23 History mcg chewable tablet Ejection fraction %: 55 Have you fallen in the past year?: No PFSH Medical History Wears glasses Cancer History of renal disease Anemia DVT (deep venous thrombosis) Non-smoker History of echocardiogram Cardiology follow-up encounter History of irregular heartbeat Abnormal echocardiogram Essential hypertension Chronic kidney disease, stage 3 Celiac disease Bone lesion Right renal mass Mixed hyperlipidemia Hemorrhoid GERD (gastroesophageal reflux disease) Osteoarthritis Sjogren's disease Surgical History History of surgery Hx of repair of ear bone S/P ectopic S/P tubal ligation S/P colonoscopy S/P cholecystectomy Family History Mother Breast cancer Colon cancer Cancer skin CVA (cerebral vascular accident) Heart disease aortic valve replacement Father CHF (congestive heart failure) Sister Colon cancer Hypertension Brother Prostate cancer Social History Smoking Status: Never smoker alcohol intake: never substance use type: does not use caffeine: Yes Type: tea (more content not included)... [facility] 11-27-2023 [facility] Telephone (FAMPWS) RICHELLE CARDOZO ([id number]) 1955 F Date Time Provider Department 11/27/23 [facility] During your visit today, we recorded the following information about you: Vinny Briones MD 11/27/2023 10:56 PM Signed Let patient know B12 and iron labs were ok. Aria Scherer MA 11/28/2023 9:04 AM Signed Patient was notified Aria Scherer MA Allergies As of Date: 11/27/2023 Noted Allergy Reaction AMOXICILLIN 07/06/2015 2 - Rash HCTZ (AMILORIDE-HYDROCHLORO THIAZI*03/26/2006 5 - Intolerance Comments: REDNESS AND ITCHING SULFA (SULFONAMIDE ANTIBIOTICS) 06/12/2008 2 - Rash ERYTHROMYCIN 05/22/2023 8 - GI Upset AUGMENTIN (AMOXICILLIN-POT CLAVUL*04/11/2005 8 - GI Upset CEPHALEXIN 11/13/2005 5 - Intolerance Comments: Sore mouth and tongue DOXYCYCLINE 04/21/2005 16 - Unknown Comments: Headache DUST MITES 11/28/2005 16 - Unknown GRASS POLLEN 11/28/2005 16 - Unknown LISINOPRIL 04/21/2011 3 - Cough TREES 11/28/2005 16 - Unknown Date Reviewed: 09/07/2023 Reviewed by: Nga Lenz MA - Fully Assessed Reason for Visit: Results [95] Prescriptions as of 11/28/2023 - metoprolol tartrate, short acting, (LOPRESSOR) 25 mg tablet Take 1 tablet by mouth every 12 hours. - ondansetron orally disintegrating (ZOFRAN ODT) 4 mg disintegrating tablet Take 1 tablet by mouth every 12 hours as needed for nausea/vomiting. 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] 05/01/2006 09/11/2016 Sicca syndrome (HCC) [M35.00] 05/01/2006 12/02/2015 GRANULOMA ANNULARE///ERYTHEMATOU S COND NEC [L53*09/11/2008 12/02/2015 XEROSIS///SEBACEOUS GLAND DIS [...] cancer [Z80.0] 01/07/2015 01/27/2021 Encounter for gynecological examination without*10/21/2015 12/02/2015 Medication management [Z79.899] 07/30/2017 Essential hypertension [I10] 07/30/2017 Mixed hyperlipidemia [E78.2] 07/30/2017 Epidermal inclusion cyst [L72.0] 09/03/2017 Colon cancer screening [Z12.11] 09/19/2017 Well adult exam [Z00.00] 01/30/2018 History of DVT (deep vein thrombosis) [Z86.718] 06/17/2009 Diverticulosis of colon [K57.30] 08/04/2005 Personal history of colonic polyps [Z86.010] 03/15/2009 Encounter for screening for diabetes mellitus [*08/07/2018 Post herpetic neuralgia [B02.29] 10/15/2020 History of shingles [Z86.19] 10/15/2020 Polyp of colon [K63.5] 01/27/2021 01/27/2021 Malignant neoplasm of right kidney, except preet*09/17/2023 Metabolic acidosis [E87.20] 11/20/2023 Encounter Status:Closed by ARIA SCHERER on 11/28/23 Normal [facility] Iron and Iron binding capaci ty panelon 11-23-2023 Iron [Mass/Vol] 70 ug/dL Normal 41-186 [facility] Comment on above: Order Comment: Speci men Type: BLOOD SPECIMENOrdering Facility: [facility] Address: [address] [place] [address] Performed By: #### 5 0190-8, 2132-02 ####[facility] LABIA [id number] [place] [address] [place] Iron binding capacity [Mass/Vol] 262 ug/dL Normal 232-386 [facility] Comment on above: Order Comment: Steveni men Type: BLOOD SPECIMENOrdering Facility: [facility] Address: [address] [place] [address] Performed By: #### 5 0190-8, 2132-02 ####[facility] LABCLIA [id number] [place] [id number] [place] Iron/TIBC [Molar ratio] 26.7 % Normal 15.0-57.0 C [facility] Comment on above: Order Comment: Speci men Type: BLOOD SPECIMENOrdering Facility: [facility] Address: [address] [place] [address] Performed By: #### 5 0190-8, 2132-02 ####[facility] LABCLIA [id number] [place] [id number] [place] Vit B12 SerPl-ncon 11-22-2 024 Cobalamin (Vitamin B12) [Mass/Vol] 1476 pg/mL High 232-1245 [facility] Comment on above: Order Comment: Speci men Type: BLOOD SPECIMENOrdering Facility: [facility] Address: [address] [place] [address] Performed By: #### 5 0190-8, 2132-9 ####[facility] LABCLIA [id number] [place] [id number] [place] CBC-Complete Blood Cnt No Di ffon 11-12-2023 Erythrocyte distribution width (RBC) [Ratio] 14.0 % Normal 11.6-14.6 [facility] Comment on above: Performed By: #### L 100.0500, L500.3600 #### [facility] [address] [place], [address] Hematocrit (Bld) [Volume fraction] 36.1 % Low 37-47 [facility] Comment on above: Performed By: #### L 100.0500, L500.3600 #### [facility] [address] [place], [address] Hemoglobin (Bld) [Mass/Vol] 11.1 g/dL Low 12.0-15.0 [facility] Comment on above: Performed By: #### L 100.0500, L500.3600 #### [facility] [address] [place], [address] MCH (RBC) [Entitic mass] 28.8 pg Normal 27.0-32.0 [facility] Comment on above: Performed By: #### L 100.0500, L500.3600 #### [facility] [address] [place], [address] MCHC (RBC) [Mass/Vol] 30.7 g/dL Low 32-36 [facility] Comment on above: Performed By: #### L 100.0500, L500.3600 #### [facility] [address] [place], [address] MCV (RBC) [Entitic vol] 93.8 fL Normal 81-99 [facility] Comment on above: Performed By: #### L 100.0500, L500.3600 #### [facility] [address] [place], [address] Platelet mean volume (Bld) [Entitic vol] 9.9 fL Normal 6.2-12.0 [facility] Comment on above: Performed By: #### L 100.0500, L500.3600 #### [facility] [address] [place], [address] Platelets (Bld) [#/Vol] 278 10*3/uL Normal 150-450 [facility] Comment on above: Performed By: #### L 100.0500, L500.3600 #### [facility] [address] [place], [address] RBC (Bld) [#/Vol] 3.85 10*6/uL Low 4.2-5.4 [facility] Comment on above: Performed By: #### L 100.0500, L500.3600 #### [facility] [address] [place], [address] RDW SD 46.9 fl High 35.1-43.9 [facility] Comment on above: Performed By: #### L 100.0500, L500.3600 #### [facility] [address] [place], [address] WBC (Bld) [#/Vol] 5.2 10*3/uL Normal 4.4-11.0 [facility] Comment on above: Performed By: #### L 100.0500, L500.3600 #### [facility] [address] [place], [address] Renal Profileon 11-12-2023 Albumin [Mass/Vol] 3.1 g/dL Low 3.2-5.0 [facility] Comment on above: Performed By: #### L 100.0500, L500.3600 #### [facility] [address] [place], [address] BUN/CRE 9.6 RATIO Low 10-20 [facility] Comment on above: Performed By: #### L 100.0500, L500.3600 #### [facility] [address] [place], [address] CA,Total 9.2 mg/dL Normal 8.5-10.1 [facility] Comment on above: Performed By: #### L 100.0500, L500.3600 #### [facility] [address] [place], [address] Chloride [Moles/Vol] 110 mmol/L High 98-107 [facility] Comment on above: Performed By: #### L 100.0500, L500.3600 #### [facility] [address] [place], [address] CO2 [Moles/Vol] 25.0 mmol/L Normal 21.0-32.0 [facility] Comment on above: Performed By: #### L 100.0500, L500.3600 #### [facility] [address] [place], [address] Creatinine [Mass/Vol] 1.14 mg/dL High 0.55-1.02 [facility] Comment on above: Result Comment: The validity of the calculated GFR GFRAA in patients over 70 years has not been determined. Clinical correlation is essential. Performed By: #### L 100.0500, L500.3600 #### [facility] [address] [place], [address] EST GFR - AA 61 mL/min Normal >60 [facility] Comment on above: Result Comment: Afri can [place] GFR Calc Performed By: #### L 100.0500, L500.3600 #### [facility] [address] [place], [address] GFR/1.73 sq M.predicted among non-blacks MDRD (S/P/Bld) [Vol rate/Area] 50 mL/min/{1.73_m2} Low >60 [facility] Comment on above: Result Comment: Non- GFR Calc Performed By: #### L 100.0500, L500.3600 #### [facility] [address] [place], [address] Glucose [Mass/Vol] 94 mg/dL Normal 74-106 [facility] Comment on above: Performed By: #### L 100.0500, L500.3600 #### [facility] [address] [place], [address] Phosphate [Mass/Vol] 4.1 mg/dL Normal 2.5-4.9 [facility] Comment on above: Performed By: #### L 100.0500, L500.3600 #### [facility] [address] [place], [address] Potassium [Moles/Vol] 3.7 mmol/L Normal 3.5-5.1 [facility] Comment on above: Performed By: #### L 100.0500, L500.3600 #### [facility] [address] [place], [address] Sodium [Moles/Vol] 139 mmol/L Normal 136-145 [facility] Comment on above: Performed By: #### L 100.0500, L500.3600 #### [facility] [address] [place], [address] Urea nitrogen [Mass/Vol] 11 mg/dL Normal 7-18 [facility] Comment on above: Performed By: #### L 100.0500, L500.3600 #### [facility] [address] [place], [address] CNPNon 09-21-2023 CNPN Telephone (FAMPWS) RICHELLE CARDOZO ([id number]) 1955 F Date Time Provider Department 09/21/23 YOKASTA MCNULTY [facility] During your visit today, we recorded the following information about you: Yokasta Mcnulty PA-C 09/21/2023 12:03 PM Signed Let patient know that her hemoglobin is back up to 11.4 which is closer to her baseline but still mildly low. Her b12 level is low normal. Recommend starting OTC b12 1000mcg once daily. Her iron is also low normal. Recommend increasing iron. Can take slow Fe or a flinstones vitamin with iron so not as harsh on stomach. Repeat labs in 2 months. PRASHANTH Duffy Beth, LPN 09/21/2023 12:47 PM Signed Patient calling since she saw lab orders on her my chart. Went over results, notes from Yokasta TERRAZAS with understanding. Aware lab orders in computer to complete in 2 months. Allergies As of Date: 09/21/2023 Noted Allergy Reaction AMOXICILLIN 07/06/2015 2 - Rash HCTZ (AMILORIDE-HYDROCHLORO THIAZI*03/26/2006 5 - Intolerance Comments: REDNESS AND ITCHING SULFA (SULFONAMIDE ANTIBIOTICS) 06/12/2008 2 - Rash ERYTHROMYCIN 05/22/2023 8 - GI Upset AUGMENTIN (AMOXICILLIN-POT CLAVUL*04/11/2005 8 - GI Upset CEPHALEXIN 11/13/2005 5 - Intolerance Comments: Sore mouth and tongue DOXYCYCLINE 04/21/2005 16 - Unknown Comments: Headache DUST MITES 11/28/2005 16 - Unknown GRASS POLLEN 11/28/2005 16 - Unknown LISINOPRIL 04/21/2011 3 - Cough TREES 11/28/2005 16 - Unknown Date Reviewed: 09/07/2023 Reviewed by: Nga Lenz MA - Fully Assessed Reason for Visit: Results [95] Primary Visit Diagnosis:Anemia, unspecified type [D64.9] Order(s):COMPLETE BLOOD COUNT AND DIFFERENTIAL [SQCBCDIF] Order #: [id number] FUTURE IRON AND TIBC [SQIRON] Order #: [id number] FUTURE VITAMIN B12 [SQB12] Order #: [id number] FUTURE Prescriptions as of 09/21/2023 - metoprolol tartrate, short acting, (LOPRESSOR) 25 mg tablet Take 1 tablet by mouth every 12 hours. - ondansetron orally disintegrating (ZOFRAN ODT) 4 mg disintegrating tablet Take 1 tablet by mouth every 12 hours as needed for nausea/vomiting. - L.acidophil/L.plantar/ Bifido 7 (UP4 PROBIOTICS ADULT ORAL) Take by [...] at bedtime Problem List As Of Date 09/21/2023 Noted Resolved Allergic rhinitis [J30.9] 04/21/2005 POLYP COLON [D12.6] 07/07/2005 07/27/2011 DIVERTICULOSIS COLON - NO HEMORRHAGE [K57.30] 08/04/2005 06/16/2016 Asymptomatic varicose veins [I83.90] 10/20/2005 06/16/2016 Predominant disturbance of emotions [R45.89] 05/01/2006 09/11/2016 Sicca syndrome (HCC) [M35.00] 05/01/2006 12/02/2015 GRANULOMA ANNULARE///ERYTHEMATOU S COND NEC [L53*09/11/2008 12/02/2015 XEROSIS///SEBACEOUS GLAND DIS [...] cancer [Z80.0] 01/07/2015 01/27/2021 Encounter for gynecological examination without*10/21/2015 12/02/2015 Medication management [Z79.899] 07/30/2017 Essential hypertension [I10] 07/30/2017 Mixed hyperlipidemia [E78.2] 07/30/2017 Epidermal inclusion cyst [L72.0] 09/03/2017 Colon cancer screening [Z12.11] 09/19/2017 Well adult exam [Z00.00] 01/30/2018 History of DVT (deep vein thrombosis) [Z86.718] 06/17/2009 Diverticulosis of colon [K57.30] 08/04/2005 Personal history of colonic polyps [Z86.010] 03/15/2009 Encounter for screening for diabetes mellitus [*08/07/2018 Post herpetic neuralgia [B02.29] 10/15/2020 History of shingles [Z86 (more content not included)... Normal [facility] CBC W Auto Differential pane l (Bld)on 09-20-2023 Basophils (Bld) [#/Vol] 0.06 10*3/uL Normal <0.11 [facility] Comment on above: Order Comment: Speci men Type: BLOOD SPECIMENOrdering Facility: [facility] Address: [address] [place] [address] Performed By: #### 5 7021-8 ####[facility] LABCLIA [id number] [place] [address] [place] Basophils/100 WBC (Bld) 1.0 % Normal [facility] Comment on above: Order Comment: Speci men Type: BLOOD SPECIMENOrdering Facility: [facility] Address: [address] [place] [address] Performed By: #### 5 7021-8 ####[facility] LABCLIA [id number] [place] [address] [place] Differential cell count method Nom (Bld) Auto Normal [facility] Comment on above: Order Comment: Speci men Type: BLOOD SPECIMENOrdering Facility: [facility] Address: [address] [place] [address] Performed By: #### 5 7021-8 ####[facility] LABCLIA [id number] [place] [address] [place] Eosinophils (Bld) [#/Vol] 0.16 10*3/uL Normal <0.46 [facility] Comment on above: Order Comment: Speci men Type: BLOOD SPECIMENOrdering Facility: [facility] Address: [address] [place] [address] Performed By: #### 5 7021-8 ####[facility] LABCLIA [id number] [place] [address] [place] Eosinophils/100 WBC (Bld) 2.6 % Normal [facility] Comment on above: Order Comment: Speci men Type: BLOOD SPECIMENOrdering Facility: [facility] Address: [address] [place] [address] Performed By: #### 5 7021-8 ####[facility] LABCLIA [id number] [place] [address] [place] Erythrocyte distribution width (RBC) [Ratio] 14.6 % Normal 11.5-15.0 [facility] Comment on above: Order Comment: Speci men Type: BLOOD SPECIMENOrdering Facility: [facility] Address: [address] [place] [address] Performed By: #### 5 7021-8 ####[facility] LABCLIA [id number] [place] [address] [place] Hematocrit (Bld) [Volume fraction] 35.8 % Low 36.0-46.0 [facility] Comment on above: Order Comment: Speci men Type: BLOOD SPECIMENOrdering Facility: [facility] Address: [address] [place] [address] Performed By: #### 5 7021-8 ####[facility] LABCLIA [id number] [place] [address] [place] Hemoglobin (Bld) [Mass/Vol] 11.4 g/dL Low 11.5-15.5 [facility] Comment on above: Order Comment: Speci men Type: BLOOD SPECIMENOrdering Facility: [facility] Address: [address] [place] [address] Performed By: #### 5 7021-8 ####[facility] LABCLIA [id number] [place] [address] [place] Immature granulocytes (Bld) [#/Vol] 10*3/uL Normal <0.10 [facility] Comment on above: Order Comment: Speci men Type: BLOOD SPECIMENOrdering Facility: [facility] Address: [address] [place] [address] Performed By: #### 5 7021-8 ####[facility] LABCLIA [id number] [place] [address] [place] Immature granulocytes/100 WBC (Bld) 0.3 % Normal [facility] Comment on above: Order Comment: Speci men Type: BLOOD SPECIMENOrdering Facility: [facility] Address: [address] [place] [address] Performed By: #### 5 7021-8 ####[facility] LABCLIA [id number] [place] [address] [place] Lymphocytes (Bld) [#/Vol] 1.50 10*3/uL Normal 1.00-4.00 [facility] Comment on above: Order Comment: Speci men Type: BLOOD SPECIMENOrdering Facility: [facility] Address: [address] [place] [address] Performed By: #### 5 7021-8 ####[facility] LABCLIA [id number] [place] [address] [place] Lymphocytes/100 WBC (Bld) 24.5 % Normal [facility] Comment on above: Order Comment: Speci men Type: BLOOD SPECIMENOrdering Facility: [facility] Address: [address] [place] [address] Performed By: #### 5 7021-8 ####[facility] LABCLIA [id number] [place] [address] [place] MCH (RBC) [Entitic mass] 29.8 pg Normal 26.0-34.0 [facility] Comment on above: Order Comment: Speci men Type: BLOOD SPECIMENOrdering Facility: [facility] Address: [address] [place] [address] Performed By: #### 5 7021-8 ####[facility] LABCLIA [id number] [place] [address] [place] MCHC (RBC) [Mass/Vol] 31.8 g/dL Normal 30.5-36.0 [facility] Comment on above: Order Comment: Speci men Type: BLOOD SPECIMENOrdering Facility: [facility] Address: [address] [place] [address] Performed By: #### 5 7021-8 ####[facility] LABCLIA [id number] [place] [address] [place] MCV (RBC) [Entitic vol] 93.5 fL Normal 80.0-100.0 C [facility] Comment on above: Order Comment: Speci men Type: BLOOD SPECIMENOrdering Facility: [facility] Address: [address] [place] [address] Performed By: #### 5 7021-8 ####[facility] LABIA [id number] [place] [address] [place] Monocytes (Bld) [#/Vol] 0.90 10*3/uL High <0.87 [facility] Comment on above: Order Comment: Speci men Type: BLOOD SPECIMENOrdering Facility: [facility] Address: [address] [place] [address] Performed By: #### 5 7021-8 ####[facility] LABCLIA [id number] [place] [address] [place] Monocytes/100 WBC (Bld) 14.7 % Normal C [facility] Comment on above: Order Comment: Speci men Type: BLOOD SPECIMENOrdering Facility: [facility] Address: [address] [place] [address] Performed By: #### 5 7021-8 ####[facility] LABCLIA [id number] [place] [address] [place] Neutrophils (Bld) [#/Vol] 3.48 10*3/uL Normal 1.45-7.50 [facility] Comment on above: Order Comment: Speci men Type: BLOOD SPECIMENOrdering Facility: [facility] Address: [address] [place] [address] Performed By: #### 5 7021-8 ####[facility] LABCLIA [id number] [place] [address] [place] Neutrophils/100 WBC (Bld) 56.9 % Normal [facility] Comment on above: Order Comment: Speci men Type: BLOOD SPECIMENOrdering Facility: [facility] Address: [address] [place] [address] Performed By: #### 5 7021-8 ####[facility] LABCLIA [id number] [place] [address] [place] Nucleated RBC (Bld) [#/Vol] 10*3/uL Normal <0.01 [facility] Comment on above: Order Comment: Speci men Type: BLOOD SPECIMENOrdering Facility: [facility] Address: [address] [place] [address] Performed By: #### 5 7021-8 ####[facility] LABCLIA [id number] [place] [address] [place] Nucleated RBC/100 WBC (Bld) [Ratio] 0.0 /100 WBC Normal [facility] Comment on above: Order Comment: Speci men Type: BLOOD SPECIMENOrdering Facility: [facility] Address: [address] [place] [address] Performed By: #### 5 7021-8 ####[facility] LABIA [id number] [place] [address] [place] Platelet mean volume (Bld) [Entitic vol] 10.1 fL Normal 9.0-12.7 [facility] Comment on above: Order Comment: Speci men Type: BLOOD SPECIMENOrdering Facility: [facility] Address: [address] [place] [address] Performed By: #### 5 7021-8 ####[facility] LABIA [id number] [place] [address] [place] Platelets (Bld) [#/Vol] 281 10*3/uL Normal 150-400 [facility] Comment on above: Order Comment: Speci men Type: BLOOD SPECIMENOrdering Facility: [facility] Address: [address] [place] [address] Performed By: #### 5 7021-8 ####[facility] LABIA [id number] [place] [address] [place] RBC (Bld) [#/Vol] 3.83 10*6/uL Low 3.90-5.20 [facility] Comment on above: Order Comment: Speci men Type: BLOOD SPECIMENOrdering Facility: [facility] Address: [address] [place] [address] Performed By: #### 5 7021-8 ####[facility] [id number] [place] [address] [place] WBC (Bld) [#/Vol] 6.12 10*3/uL Normal 3.70-11.00 [facility] Comment on above: Order Comment: Speci men Type: BLOOD SPECIMENOrdering Facility: [facility] Address: [address] [place] [address] Performed By: #### 5 7021-8 ####[facility] [id number] [place] [address] [place] EPO SerPl-aCncon 09-20-2023 Erythropoietin (EPO) Qn 10.8 mIU/mL Normal 2.6-18.5 [facility] Comment on above: Order Comment: Speci men Type: BLOOD SPECIMENOrdering Facility: [facility] Address: [address] [place] [address] Performed By: #### 1 5061-5 ####[facility] LABCLIA [id number] [place] [address] [place] [facility] Ferritin [Mass/Vol] 67.1 ng/mL Normal 14.7-205.1 [facility] Comment on above: Order Comment: Speci men Type: BLOOD SPECIMENOrdering Facility: [facility] Address: [address] [place] [address] Performed By: #### 2 276-4, 2284-8, 15235-6, 9 ####[facility] LABCLIA [id number] [place] [address] [place] Folate [facility]Pl[facility] Folate [Mass/Vol] 5.1 ng/mL Normal >4.7 [facility] Comment on above: Order Comment: Speci men Type: BLOOD SPECIMENOrdering Facility: [facility] Address: [address] [place] [address] Performed By: #### 2 276-4, 2284-8, 84055-1, 9 ####[facility] LABCLIA [id number] [place] [address] [place] Iron and Iron binding capaci ty panelon 09-20-2023 Iron [Mass/Vol] 42 ug/dL Normal 41-186 [facility] Comment on above: Order Comment: Speci men Type: BLOOD SPECIMENOrdering Facility: [facility] Address: [address] [place] [address] Performed By: #### 2 276-4, 2284-8, 77997-8, 9 ####[facility] LABIA [id number] [place] [address] [place] Iron binding capacity [Mass/Vol] 294 ug/dL Normal 232-386 [facility] Comment on above: Order Comment: Speci men Type: BLOOD SPECIMENOrdering Facility: [facility] Address: [address] [place] [address] Performed By: #### 2 276-4, 2284-8, 77672-9, 9 ####[facility] LABCLIA [id number] [place] [address] [place] Iron/TIBC [Molar ratio] 14.3 % Low 15.0-57.0 C [facility] Comment on above: Order Comment: Speci men Type: BLOOD SPECIMENOrdering Facility: [facility] Address: [address] [place] [address] Performed By: #### 2 276-4, 2284-8, 52665-0, 2132-02 ####[facility] LABCLIA [id number] [place] [address] [place] Vit B12 [place] [facility] 04-18-2 024 Cobalamin (Vitamin B12) [Mass/Vol] 316 pg/mL Normal 232-1245 [facility] Comment on above: Order Comment: Speci men Type: BLOOD SPECIMENOrdering Facility: [facility] Address: [address] [place], [place] [address] [address] Performed By: #### 2 276-4, 2284-8, 53748-1, 9 ####[facility] LABCLIA [id number] [address] [place] Erik 09-17-2023 [facility] RICHELLE CARDOZO ([id number]) 1955 F Date Time Provider Department 09/17/23 [facility] During your visit today, we recorded the following information about you: Radha Hanks RN 09/17/2023 9:28 AM Signed Patient calls to ask provider if anything further is needed done for her labs drawn on 09/03/2023 (specifically HGB 10.4 and HCT 33.3). Per patient, Rheumatology ordered labs but told her to follow up with PCP because they were low. Please review and advise, DANIEL Michele Jeffrey A, MD 09/17/2023 11:29 AM Signed Let patient know I placed some orders to repeat a CBC and some additional labs. Orders placed. She has a Hx of chronic anemia as low as 10.0 in the past. Her most recent lab was 10.4. however looking back over the past year she had been running 11.2-12.2 so this is lower. May be a component of her Plaquenil and the surgery she had back at the end of July. Radha Hanks RN 09/17/2023 11:34 AM Signed Call placed to patient and provider message below reviewed. Patient verbalizes understanding and will have blood work completed. Radha Hanks RN Allergies As of Date: 09/17/2023 Noted Allergy Reaction AMOXICILLIN 07/06/2015 2 - Rash HCTZ (AMILORIDE-HYDROCHLORO THIAZI*03/26/2006 5 - Intolerance Comments: REDNESS AND ITCHING SULFA (SULFONAMIDE ANTIBIOTICS) 06/12/2008 2 - Rash ERYTHROMYCIN 05/22/2023 8 - GI Upset AUGMENTIN (AMOXICILLIN-POT CLAVUL*04/11/2005 8 - GI Upset CEPHALEXIN 11/13/2005 5 - Intolerance Comments: Sore mouth and tongue DOXYCYCLINE 04/21/2005 16 - Unknown Comments: Headache DUST MITES 11/28/2005 16 - Unknown GRASS POLLEN 11/28/2005 16 - Unknown LISINOPRIL 04/21/2011 3 - Cough TREES 11/28/2005 16 - Unknown Date Reviewed: 09/07/2023 Reviewed by: Nga Lenz MA - Fully Assessed Reason for Visit: Results [95] Primary Visit Diagnosis:Anemia, unspecified type [D64.9] Other Visit Diagnoses:Medication management [Z79.899] Malignant neoplasm of right kidney, except renal pelvis (HCC) [C64.1] Order(s):VITAMIN B12 [SQB12] Order #: [id number] FUTURE IRON AND TIBC [SQIRON] Order #: [id number] FUTURE COMPLETE BLOOD COUNT AND DIFFERENTIAL [SQCBCDIF] Order #: [id number] FUTURE FERRITIN [SQFERR] Order #: [id number] FUTURE FOLATE, SERUM [SQSERFOL] Order #: [id number] FUTURE ERYTHROPOIETIN/EPO [SQEPO] Order #: [id number] FUTURE Prescriptions as of 09/17/2023 - metoprolol tartrate, short acting, (LOPRESSOR) 25 mg tablet Take 1 tablet by mouth every 12 hours. - ondansetron orally disintegrating (ZOFRAN ODT) 4 mg disintegrating tablet Take 1 tablet by mouth every 12 hours as needed for nausea/vomiting. 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 Normal [facility] CNOVon 09-07-2023 CNOV Office Visit (FAMPWS ) RICHELLE CARDOZO ([id number]) 1955 F Date Time Provider Department 09/07/23 1:40 PM PEDRITO MCDANIEL During your visit today, we recorded the following information about you: Pulse Respiration Blood pressure Weight 84/minute 14/minute 100/60 59.9 kg Pedrito Mcdaniel, MANAGER [employer].HAND WOOD SANDER 09/07/2023 1:43 PM Signed Chief Complaint Patient presents with: F/U 3 Month HPI Richelledenia Cardozo is a 68 year old female who presents here today for Above Complaints.. Patient presents for routine follow up. 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 This was resected and patient not currently needing radiation/chemo. Past medical history, appointments, medications, allergies reviewed. [...] kidney disease) stage 3, GFR 30-59 ml/min ([facility]) 2013 Diverticulosis of colon 08/04/2005 Duodenitis without mention of hemorrhage 04/12/2010 Epidermal inclusion cyst 09/03/2017 Removed right knee 08/2017 Essential hypertension 07/30/2017 Family history of malignant neoplasm of gastrointestinal tract 01/07/2015 GERD (gastroesophageal reflux disease) 11/10/2014 GRANULOMA ANNULARE///ERYTHEMATOU S COND NEC 09/11/2008 History of DVT (deep [...] BX W/WO ENDOCERVIX BX W/O DILAT SPX ESOPHAGOGASTRODUODENOS COPY TRANSORAL DIAGNOSTIC 04/12/2010 EGD LIG/TRNSXJ FLP TUBE ABDL/VAG APPR UNI/BI 1989 Tubal ligation PAST SURGICAL HISTORY OF 04/2013 Tubes placed in ears bilaterally PAST SURGICAL HISTORY OF 09/2014 Kidney bx SKIN BIOPSY HX STRESS TEST 03/2007 NL TONSILLECTOMY HX TX ECTOPIC W/O SALPINGAND/OOPHORECTOM Y Ectopic Family History FAMILY HISTORY Problem Relation [...] a day as needed for muscle spasm. L.acidophil/L.plantar/ Bifido 7 (UP4 PROBIOTICS ADULT ORAL) Take by mouth. hydrOXYchloroQUINE (PLAQUENIL) 200 mg tablet One tab odd days and two tabs even days, per Rheum, Dr. Faria alendronate (FOSAMAX) 35 mg tablet Take 35 mg by mouth one time a week. In AM with cup of water on empty stomach. Nothing (more content not included)... Normal [facility] Absolute lymphocyte counton 09-03-2023 Lymphocytes Auto (Unsp spec) [#/Vol] 1.72 10*3/uL 0.83-4.51 [facility] Automated lymphocyte count a s percentage of total leukocyteson 09-03-2023 Lymphocytes/100 WBC Auto (Unsp spec) 25.4 % 19-41 [facility] Basophil percentageon 2023 Basophils/100 WBC (Bld) 0.9 % 0-1 [facility] Eosinophils/100 WBC (Bld) 4.7 % 0-5 [facility] Hemoglobin (Bld) [Mass/Vol] 10.4 g/dL 12.0-15.0 [facility] Monocytes/100 WBC (Bld) 12.1 % 0-10 [facility] Neutrophils (Bld) [#/Vol] 3.8 10*3/uL 2.0-7.7 [facility] Neutrophils/100 WBC (Bld) 56.3 % 47-70 [facility] WBC (Bld) [#/Vol] 6.8 10*3/uL 4.4-11.0 [facility] Determination of erythrocyte mean corpuscular volume (MCV)on 09-03-2023 MCV (RBC) [Entitic vol] 92.8 fL 81-99 [facility] Erythrocyte distribution wid th ratioon 09-03-2023 Erythrocyte distribution width (RBC) [Ratio] 14.6 % 11.6-14.6 [facility] Erythrocyte distribution wid th standard deviationon 09-03-2023 Erythrocyte distribution width (RBC) [Entitic vol] 50.0 fL 35.1-43.9 [facility] Hematocrit Auto (Bld) [Volum e fraction]on 09-03-2023 Hematocrit (Bld) [Volume fraction] 33.3 % 37-47 [facility] Immature granulocytes/100 WB C Auto (Bld)on 09-03-2023 Immature granulocytes/100 WBC (Bld) 0.600 % 0.0-0.9 [facility] Comment on above: IG% - Immature Granu locytes (promyelocytes, myelocytes and metamyelocytes) > 1% indicates that a LEFT SHIFT is Present. Laboratory - Hematology and Cell countson 09-03-2023 MCH (RBC) [Entitic mass] 29.0 pg 27.0-32.0 [facility] MCHC (RBC) [Mass/Vol] 31.2 g/dL 32-36 [facility] Nucleated RBC/100 WBC (Bld) [Ratio] 0 % 0-5 [facility] Platelet mean volume (Bld) [Entitic vol] 9.7 fL 6.2-12.0 [facility] Platelets (Bld) [#/Vol] 231 10*3/uL 150-450 [facility] RBC Auto (Bld) [#/Vol]on RBC (Bld) [#/Vol] 3.59 10*6/uL 4.2-5.4 [facility] Activated partial thrombopla stin time (aPTT) in platelet poor plasma by coagulation aOrdered By: Steve Baxter on 07-24-2023 aPTT Coag (PPP) [Time] 26.4 s 24.1-36.2 [facility] Basophil percentageOrdered B y: Steve Baxter on 07-24-2023 Chloride [Moles/Vol] 109 mmol/L 98-107 [facility] Glucose [Mass/Vol] 101 mg/dL 74-106 [facility] Comment on above: Fasting Glucose resu lt from 100 to 125 mg/dL suggests IMPAIRED HOMEOSTASIS per A.D.A. criteria. Hemoglobin (Bld) [Mass/Vol] 11.0 g/dL 12.0-15.0 [facility] Potassium [Moles/Vol] 4.0 mmol/L 3.5-5.1 [facility] Sodium [Moles/Vol] 140 mmol/L 136-145 [facility] WBC (Bld) [#/Vol] 4.6 10*3/uL 4.4-11.0 [facility] Determination of erythrocyte mean corpuscular volume (MCV)Ordered By: Steve Baxter on 07-24-2023 MCV (RBC) [Entitic vol] 93.2 fL 81-99 [facility] Erythrocyte distribution wid th ratioOrdered By: Steve Baxter on 07-24-2023 Erythrocyte distribution width (RBC) [Ratio] 14.9 % 11.6-14.6 [facility] Erythrocyte distribution wid th standard deviationOrdered By: Steve Baxter on 07-24-2023 Erythrocyte distribution width (RBC) [Entitic vol] 51.0 fL 35.1-43.9 [facility] Hematocrit Auto (Bld) [Volum e fraction]Ordered By: Steve Baxter on 07-24-2023 Hematocrit (Bld) [Volume fraction] 35.9 % 37-47 [facility] Laboratory - Chemistry and C hemistry - challengeOrdered By: Steve Baxter on 07-24-2023 CO2 [Moles/Vol] 27.0 mmol/L 21.0-32.0 [facility] Urea nitrogen/Creatinine [Mass ratio] 11.1 mg/mg 10-20 [facility] Laboratory - CoagulationOrde red By: Steve Baxter on 07-24-2023 INR Coag (Bld) [Relative time] 1.1 {INR} [facility] PT Coag (PPP) [Time] 14.0 s 11.7-14.9 [facility] Laboratory - Hematology and Cell countsOrdered By: Steve Baxter on 07-24-2023 MCH (RBC) [Entitic mass] 28.6 pg 27.0-32.0 [facility] MCHC (RBC) [Mass/Vol] 30.6 g/dL 32-36 [facility] Platelet mean volume (Bld) [Entitic vol] 9.9 fL 6.2-12.0 [facility] Platelets (Bld) [#/Vol] 246 10*3/uL 150-450 [facility] No Panel InformationOrdered By: Steve Baxter on 07-24-2023 Estimated GFR (MDRD) Amer 50 mL/min >60 [facility] Comment on above: GFR Calc Estimated GFR (MDRD) Non-Af Amer 41 mL/min >60 [facility] Comment on above: Non- GFR Calc RBC Auto (Bld) [#/Vol]Ordere d By: Steve Baxter on 07-24-2023 RBC (Bld) [#/Vol] 3.85 10*6/uL 4.2-5.4 [facility] Serum or plasma calcium mikael urement (mass/volume)Ordered By: Steve Baxter on 07-24-2023 Calcium [Mass/Vol] 8.9 mg/dL 8.5-10.1 [facility] Serum or plasma creatinine m easurement (mass/volume)Ordered By: Steve Baxter on 07-24-2023 Creatinine [Mass/Vol] 1.35 mg/dL 0.55-1.02 [facility] Comment on above: The validity of the calculated GFR & GFRAA in patients over 70 years has not been determined. Clinical correlation is essential. Serum or plasma urea nitroge n measurement (mass/volume)Ordered By: Steve Baxter on 07-24-2023 Urea nitrogen [Mass/Vol] 15 mg/dL 7-18 [facility] Thin prep Papanicolaou smear with manual screeningOrdered By: Steve Baxter on 07-24-2023 Thin prep Papanicolaou smear with manual screening 4 5-15 [facility] CNOVon 06-05-2023 CNOV Office Visit (ALYSHAPWS ) RICHELLE CARDOZO ([id number]) 1955 F Date Time Provider Department 06/05/23 1:00 PM PEDRITO MCDANIELWS During your visit today, we recorded the following information about you: Pulse Respiration Blood pressure Weight 80/minute 16/minute 110/66 60.8 kg Pedrito Mcdaniel APRN.HAND WOOD SANDER 06/05/2023 1:14 PM Signed Chief Complaint Patient presents with: Hospital F/U [facility] Richelle Awad Juliane is a 68 year old female who [...] kidney disease) stage 3, GFR 30-59 ml/min ([facility]) 2013 Diverticulosis of colon 08/04/2005 Duodenitis without mention of hemorrhage 04/12/2010 Epidermal inclusion cyst 09/03/2017 Removed right knee 08/2017 Essential hypertension 07/30/2017 Family history of malignant neoplasm of gastrointestinal tract 01/07/2015 GERD (gastroesophageal reflux disease) 11/10/2014 GRANULOMA ANNULARE///ERYTHEMATOU S COND NEC 09/11/2008 History of DVT (deep [...] BX W/WO ENDOCERVIX BX W/O DILAT SPX ESOPHAGOGASTRODUODENOS COPY TRANSORAL DIAGNOSTIC 04/12/2010 EGD LIG/TRNSXJ FLP TUBE ABDL/VAG APPR UNI/BI 1989 Tubal ligation PAST SURGICAL HISTORY OF 04/2013 Tubes placed in ears bilaterally PAST SURGICAL HISTORY OF 09/2014 Kidney bx SKIN BIOPSY HX STRESS TEST 03/2007 NL TONSILLECTOMY HX TX ECTOPIC W/O SALPINGAND/OOPHORECTOM Y Ectopic Family History FAMILY HISTORY Problem Relation [...] a day as needed for muscle spasm. L.acidophil/L.plantar/ Bifido 7 (UP4 PROBIOT[employer] ADULT ORAL) Take by mouth. hydrOXYchloroQUINE (PLAQUENIL) 200 mg tablet One tab odd days and two tabs even days, p (more content not included)... Normal [facility] [id number] 06-05-2023 ECG01 Ventricular Rate : 7 7 BPM Atrial Rate : 77 BPM P-R Interval : 176 ms QRS Duration : 108 ms Q-T Interval : 404 ms QTC Calculation(Bazett) : 457 ms Calculated P [place] : 51 degrees Calculated R [place] : -42 degrees Calculated T [place] : 42 degrees NORMAL SINUS RHYTHM LEFT AXIS DEVIATION INCOMPLETE RIGHT BUNDLE BRANCH BLOCK LEFT VENTRICULAR HYPERTROPHY ABNORMAL ECG Confirmed by VINNY FRANCIS M.D. ([id number]) on 06/12/2023 4:28:03 PM NAME : RICHELLE CARDOZO PID : [id number] : 1955 Gender : Female Race : ORD : Procedure Date : Jun 05 2023 13:38:37 Edit Date : Jun 12 2023 16:28:04 Diagnosis: NORMAL SINUS RHYTHM LEFT AXIS DEVIATION INCOMPLETE RIGHT BUNDLE BRANCH BLOCK LEFT VENTRICULAR HYPERTROPHY ABNORMAL ECG Confirmed by VINNY FRANCIS M.D. ([id number]) on 06/12/2023 4:28:03 PM Test Reason : Location : 185 : [facility] Overread By : IVNNY FRANCIS M.D. Edited By : VINNY FRANCIS M.D. Referred By : PEDRITO MCDANIEL Acquired by : Eros IRBY [facility] Absolute lymphocyte countOrd ered By: Sandi Arias on 05-28-2023 Lymphocytes Auto (Unsp spec) [#/Vol] 1.75 10*3/uL 0.83-4.51 [facility] Basophil percentageOrdered B y: Sandi Arias on 05-28-2023 Basophil percentage Not Reportable [facility] Chloride [Moles/Vol] 111 mmol/L 98-107 [facility] Glucose [Mass/Vol] 133 mg/dL 74-106 [facility] Comment on above: Fasting Glucose resu lt greater than or equal to 126 mg/dL suggests DIABETES MELLITUS per A.D.A. criteria. Neutrophils (Bld) [#/Vol] 11.7 10*3/uL 2.0-7.7 [facility] Potassium [Moles/Vol] 3.7 mmol/L 3.5-5.1 [facility] Sodium [Moles/Vol] 136 mmol/L 136-145 [facility] WBC (Bld) [#/Vol] 14.6 10*3/uL 4.4-11.0 [facility] Blood band neutrophil count as percentage of total leukocytesOrdered By: Sandi Arias on 05-28-2023 Band form neutrophils/100 WBC (Bld) 2 % 0-5 [facility] Blood erythrocytes count (nu mber/volume)Ordered By: Sandi Arias on 05-28-2023 RBC (Bld) [#/Vol] 3.84 10*6/uL 4.2-5.4 [facility] Blood hemoglobin measurement (mass/volume)Ordered By: Sandi Arias on 05-28-2023 Hemoglobin (Bld) [Mass/Vol] 11.3 g/dL 12.0-15.0 [facility] Blood lymphocytes/100 leukoc ytesOrdered By: Sandi Arias on 05-28-2023 Lymphocytes/100 WBC (Bld) 12 % 19-41 [facility] Blood metamyelocytes/100 silvino kocytesOrdered By: Sandi Arias on 05-28-2023 Metamyelocytes/100 WBC (Bld) 7 % 0-1 [facility] Blood monocytes/100 leukocyt esOrdered By: Sandi Arias on 05-28-2023 Monocytes/100 WBC (Bld) 1 % 0-10 [facility] Blood platelet adequacy dete ction by light microscopyOrdered By: Sandi Arias on 05-28-2023 Platelets LM Ql (Bld) ADEQUATE ADEQ [facility] Blood platelet mean volumeOr dered By: Sandi Arias on 05-28-2023 Platelet mean volume (Bld) [Entitic vol] 9.4 fL 6.2-12.0 [facility] Blood segmented neutrophils/ 100 leukocytesOrdered By: Sandi Arias on 05-28-2023 Segmented neutrophils/100 WBC (Bld) 78 % 47-70 [facility] Determination of erythrocyte mean corpuscular volume (MCV)Ordered By: Sandi Arias on 05-28-2023 MCV (RBC) [Entitic vol] 88.0 fL 81-99 [facility] Hematocrit Auto (Bld) [Volum e fraction]Ordered By: Sandi Arias on 05-28-2023 Hematocrit (Bld) [Volume fraction] 33.8 % 37-47 [facility] Laboratory - Chemistry and C hemistry - challengeOrdered By: Sandi Arias on 05-28-2023 CO2 [Moles/Vol] 20.0 mmol/L 21.0-32.0 [facility] Urea nitrogen/Creatinine [Mass ratio] 12.1 mg/mg 10-20 [facility] Laboratory - Hematology and Cell countsOrdered By: Sandi Arias on 05-28-2023 Erythrocyte distribution width (RBC) [Entitic vol] 50.8 fL 35.1-43.9 [facility] Erythrocyte distribution width (RBC) [Ratio] 15.6 % 11.6-14.6 [facility] MCH (RBC) [Entitic mass] 29.4 pg 27.0-32.0 [facility] MCHC Auto (RBC) [Mass/Vol]Or dered By: Sandi Arias on 05-28-2023 MCHC (RBC) [Mass/Vol] 33.4 g/dL 32-36 [facility] Comment on above: Delta: 31.4 on 05/27 No Panel InformationOrdered By: Sandi Arias on 05-28-2023 Estimated Creatinine Clearance Calc 54.62 ml/min [facility] Estimated GFR (MDRD) Amer 79 mL/min >60 [facility] Comment on above: GFR CalcPrevious reported result: 79 mL/minEdited by: TRACEYS on 05/28/23:1309 AMENDED REPORT 05/28/23 1309 EST GFR - AA previously reported as: 79 mL/min Estimated GFR (MDRD) Non-Af Amer 65 mL/min >60 [facility] Comment on above: Non- GFR CalcPrevious reported result: 65 mL/minEdited by: TRACEYS on 05/28/23:1309 AMENDED REPORT 05/28/23 1309 EST GFR previously reported as: 65 mL/min Thyroid Stimulating Hormone (TSH) 1.02 uIU/mL 0.358-3.74 [facility] Platelets bldOrdered By: Emeli Arias on 05-28-2023 Platelets (Bld) [#/Vol] 420 10*3/uL 150-450 [facility] RBC morphologyOrdered By: Urvashi Arias on 05-28-2023 RBC morphology finding Nom (Bld) NORM C+C NORMAL NORM C&C [facility] Review by pathologistOrdered By: Sandi Arias on 05-28-2023 Pathologist review Max (Unsp spec) [Interp] Reviewed [facility] Comment on above: Previous reported re sult: October emily Edited by: MAVERICK on 05/29/23:1341Neutrophilic leukocytosis with left shift.Clinical correlation necessary.Ector Henson M.D. 05/29/23 AMENDED REPORT 05/29/23 1341 PATH REV previously reported as: October emily Serum or plasma calcium mikael urement (mass/volume)Ordered By: Sandi Arias on 05-28-2023 Calcium [Mass/Vol] 9.1 mg/dL 8.5-10.1 [facility] Serum or plasma creatinine m easurement (mass/volume)Ordered By: Sandi Arias on 05-28-2023 Creatinine [Mass/Vol] 0.91 mg/dL 0.55-1.02 [facility] Comment on above: The validity of the calculated GFR & GFRAA in patients over 70 years has not been determined. Clinical correlation is essential. Serum or plasma urea nitroge n measurement (mass/volume)Ordered By: Sandi Arias on 05-28-2023 Urea nitrogen [Mass/Vol] 11 mg/dL 7-18 [facility] Thin prep Papanicolaou smear with manual screeningOrdered By: Sandi Arias on 05-28-2023 Thin prep Papanicolaou smear with manual screening 5 5-15 [facility] Total cell countOrdered By: Sandi Arias on 05-28-2023 Cells counted Molgen (Bld/Tiss) [#] 100 MANUAL DIFF [facility] Blood eosinophils/100 leukoc ytesOrdered By: Jason Marques on 05-27-2023 Eosinophils/100 WBC (Bld) 1 % 0-5 [facility] Laboratory - Hematology and Cell countsOrdered By: Jason Marques on 05-27-2023 Myelocytes/100 WBC (Bld) 4 % 0-0 [facility] Basophil percentageOrdered B y: Jason Marques on 05-26-2023 Basophils/100 WBC (Bld) 0.6 % 0-1 [facility] Eosinophils/100 WBC (Bld) 0.3 % 0-5 [facility] Blood lymphocytes/100 leukoc ytesOrdered By: Jason Marques on 05-26-2023 Lymphocytes/100 WBC (Bld) 8.6 % 19-41 [facility] Blood monocytes/100 leukocyt esOrdered By: Jason Marques on 05-26-2023 Monocytes/100 WBC (Bld) 9.5 % 0-10 [facility] Laboratory - Hematology and Cell countsOrdered By: Jason Marques on 05-26-2023 Immature granulocytes/100 WBC (Bld) 3.900 % 0.0-0.9 [facility] Comment on above: IG% - Immature Granu locytes (promyelocytes, myelocytes and metamyelocytes) > 1% indicates that a LEFT SHIFT is Present. Nucleated RBC/100 WBC (Bld) [Ratio] 0 % 0-5 [facility] Bacteria identified Respirat ory culture Nom (Unsp spec)Ordered By: Darius Plummer on 05-25-2023 Respiratory Culture Streptococcus pneumoniae [facility] Respiratory Culture Streptococcus pneumoniae [facility] Basophil percentageOrdered B y: Carlotta Head on 05-25-2023 Bilirubin [Mass/Vol] 0.30 mg/dL 0.20-1.00 [facility] Comment on above: For patients on eltr ombopag therapy, use of Dimension [place] TBIL is not recommended. LDH [Catalytic activity/Vol] 246 U/L 84-246 [facility] Protein [Mass/Vol] 6.9 g/dL 6.4-8.2 [facility] Bilirubin Test strip Ql (U)O rdered By: Carlotta Head on 05-25-2023 Bilirubin Ql (U) Negative Negative [facility] Direct bilirubinOrdered By: Carlotta Head on 05-25-2023 Bilirubin.direct [Mass/Vol] 0.12 mg/dL 0.00-0.30 [facility] Gram stain for investigation of transfusion reactionOrdered By: Darius Plummer on 05-25-2023 Microscopic observation Gram stain Nom (Unsp spec) [facility] Microscopic observation Gram stain Nom (Unsp spec) [facility] Ketones Test strip Ql (U)Ord ered By: Carlotta Head on 05-25-2023 Ketones Ql (U) Negative Negative [facility] Laboratory - Chemistry and C hemistry - challengeOrdered By: Carlotta Head on 05-25-2023 ALP [Catalytic activity/Vol] 54 U/L 45-117 [facility] ALT [Catalytic activity/Vol] 32 U/L 13-56 [facility] Globulin (S) [Mass/Vol] 4.8 g/dL 2.2-4.2 [facility] Laboratory - Chemistry and C hemistry - challengeOrdered By: Jason Marques on 05-25-2023 CK [Catalytic activity/Vol] 109 U/L 26-192 [facility] Laboratory - Microbiology an d Antimicrobial susceptibilityOrdered By: Steve Woods on 05-25-2023 Bacteria identified Cx Nom (Bld) No growth in 5 days. [facility] Nitrite Test strip Ql (U)Ord ered By: Carlotta Head on 05-25-2023 Nitrite Ql (U) Negative Negative [facility] No Panel InformationOrdered By: Darius Plummer on 05-25-2023 Streptococcus pneumoniae Antigen (M Streptococcus pneumonia Ag [facility] Streptococcus pneumoniae Antigen (M Streptococcus pneumonia Ag [facility] Methicillin-Resist S.aureus DNA PCR Negative Negative [facility] Protein Test strip Ql (U)Ord ered By: Carlotta Head on 05-25-2023 Protein Ql (U) 15 mg/dl Negative [facility] Serum or plasma albumin mikael urement (mass/volume)Ordered By: Carlotta Head on 05-25-2023 Albumin [Mass/Vol] 2.1 g/dL 3.2-5.0 [facility] Thin prep Papanicolaou smear with manual screeningOrdered By: Carlotta Head on 05-25-2023 Thin prep Papanicolaou smear with manual screening 45 U/L 15-37 [facility] Urine Legionella pneumophila antigen detectionOrdered By: Darius Plummer on 05-25-2023 L. pneumophila Ag Ql (U) [facility] L. pneumophila Ag Ql (U) [facility] Urine blood detectionOrdered By: Carlotta Head on 05-25-2023 RBC Ql (U) Negative Negative [facility] Urine clarityOrdered By: Bebe Head on 05-25-2023 Clarity (U) Clear Clear [facility] Urine color determinationOrd ered By: Carlotta Head on 05-25-2023 Color (U) Yellow Yellow [facility] Urine glucose detectionOrder ed By: Carlotta Head on 05-25-2023 Glucose Ql (U) Normal mg/dl Normal [facility] Urine leukocyte esterase det ection by dipstickOrdered By: Carlotta Head on 05-25-2023 Leukocyte esterase Test strip Ql (U) Negative Negative [facility] Urine pHOrdered By: Carlotta spence on 05-25-2023 pH (U) 7.0 [pH] 5.0 - 8.0 [facility] Urine specific gravity measu rementOrdered By: Carlotta Head on 05-25-2023 Specific gravity (U) [Rel density] 1.005 1.002-1.030 [facility] Urobilinogen Auto test strip Ql (U)Ordered By: Carlotta Head on 05-25-2023 Urobilinogen Ql (U) Normal mg/dl Normal [facility] Absolute lymphocyte countOrd ered By: ED PROVIDER on 05-24-2023 Lymphocytes Auto (Unsp spec) [#/Vol] 0.78 10*3/uL 0.83-4.51 [facility] Comment on above: Previous reported re sult: 0.71 X10^3/uLEdited by: DANGELO on 05/24/23:2148 AMENDED REPORT 05/24/232148 Absolute Lymph previously reported as: 0.71 L X10^3/uL Basophil percentageOrdered B y: Steve Woods on 05-24-2023 Lactate [Moles/Vol] 1.4 mmol/L 0.4-2.0 [facility] Basophil percentageOrdered B y: ED PROVIDER on 05-24-2023 Basophil percentage MOLECULAR BIOLOGY SCIENTIST [facility] Comment on above: Previous reported re sult: 80.0 %Edited by: DANGELO on 05/24/23:2147 AMENDED REPORT 05/24/232147 NEUT% previously reported as: 80.0 H % Previous reported re sult: 0.0 %Edited by: DANGELO on 05/24/23:2148 AMENDED REPORT 05/24/232148 EO% previously reported as: 0.0 % Previous reported re sult: 0.3 %Edited by: DANGELO on 05/24/23:2148 AMENDED REPORT 05/24/232148 BASO% previously reported as: 0.3 % Chloride [Moles/Vol] 98 mmol/L 98-107 [facility] Glucose [Mass/Vol] 108 mg/dL 74-106 [facility] Comment on above: Fasting Glucose resu lt from 100 to 125 mg/dL suggests IMPAIRED HOMEOSTASIS per A.D.A. criteria. Neutrophils (Bld) [#/Vol] 10.4 10*3/uL 2.0-7.7 [facility] Comment on above: Previous reported re sult: 10.4 X10^3/uLEdited by: DANGELO on 05/24/23:2148 AMENDED REPORT 05/24/232148 Absolute Neut previously reported as: 10.4 H X10^3/uL Potassium [Moles/Vol] 3.0 mmol/L 3.5-5.1 [facility] Sodium [Moles/Vol] 128 mmol/L 136-145 [facility] WBC (Bld) [#/Vol] 13.0 10*3/uL 4.4-11.0 [facility] Blood band neutrophil count as percentage of total leukocytesOrdered By: ED PROVIDER on 05-24-2023 Band form neutrophils/100 WBC (Bld) 10 % 0-5 [facility] Blood erythrocytes count (nu mber/volume)Ordered By: ED PROVIDER on 05-24-2023 RBC (Bld) [#/Vol] 3.99 10*6/uL 4.2-5.4 [facility] Blood hemoglobin measurement (mass/volume)Ordered By: ED PROVIDER on 05-24-2023 Hemoglobin (Bld) [Mass/Vol] 11.5 g/dL 12.0-15.0 [facility] Blood lymphocytes/100 leukoc ytesOrdered By: ED PROVIDER on 05-24-2023 Lymphocytes/100 WBC (Bld) MOLECULAR BIOLOGY SCIENTIST [facility] Comment on above: Previous reported re sult: 5.5 %Edited by: DANGELO on 05/24/23:2147 AMENDED REPORT 05/24/232147 LY% previously reported as: 5.5 L % Lymphocytes/100 WBC (Bld) 6 % 19-41 [facility] Blood monocytes/100 leukocyt esOrdered By: ED PROVIDER on 05-24-2023 Monocytes/100 WBC (Bld) MOLECULAR BIOLOGY SCIENTIST [facility] Comment on above: Previous reported re sult: 8.2 %Edited by: DANGELO on 05/24/23:2147 AMENDED REPORT 05/24/232147 MONO% previously reported as: 8.2 % Monocytes/100 WBC (Bld) 14 % 0-10 [facility] Blood platelet mean volumeOr dered By: ED PROVIDER on 05-24-2023 Platelet mean volume (Bld) [Entitic vol] 10.2 fL 6.2-12.0 [facility] Blood segmented neutrophils/ 100 leukocytesOrdered By: ED PROVIDER on 05-24-2023 Segmented neutrophils/100 WBC (Bld) 70 % 47-70 [facility] Determination of erythrocyte mean corpuscular volume (MCV)Ordered By: ED PROVIDER on 05-24-2023 MCV (RBC) [Entitic vol] 86.0 fL 81-99 [facility] Hematocrit Auto (Bld) [Volum e fraction]Ordered By: ED PROVIDER on 05-24-2023 Hematocrit (Bld) [Volume fraction] 34.3 % 37-47 [facility] Laboratory - Chemistry and C hemistry - challengeOrdered By: ED PROVIDER on 05-24-2023 CO2 [Moles/Vol] 22.0 mmol/L 21.0-32.0 [facility] Urea nitrogen/Creatinine [Mass ratio] 11.8 mg/mg 10-20 [facility] Laboratory - Hematology and Cell countsOrdered By: ED PROVIDER on 05-24-2023 Erythrocyte distribution width (RBC) [Entitic vol] 44.2 fL 35.1-43.9 [facility] Erythrocyte distribution width (RBC) [Ratio] 14.1 % 11.6-14.6 [facility] MCH (RBC) [Entitic mass] 28.8 pg 27.0-32.0 [facility] Laboratory - Microbiology an d Antimicrobial susceptibilityOrdered By: Steve Woods on 12-21-2023 Bacteria identified Cx Nom (Bld) No growth in 5 days. [facility] MCHC Auto (RBC) [Mass/Vol]Or dered By: ED PROVIDER on 05-24-2023 MCHC (RBC) [Mass/Vol] 33.5 g/dL 32-36 [facility] No Panel InformationOrdered By: Steve Woods on 05-24-2023 D-Dimer Quantitative (PE/DVT) 2.40 FEU/ug/m 0.27-0.49 [facility] Comment on above: D-Dimer ELEVATED (>0 .49): Additional studies and clinicalassessments are indicated to conclude diagnosis of:Deep Vein Thrombosis (DVT) or Pulmonary Embolism (PE)CRITICAL VALUE VERIFIED. CALLED TO UWQOYOK17/21/23 2353 Vic Sheriff.RESULTS READ BACK BY SAME. 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 For more information see Policy Stat Procedure [place] High Sensitivity Troponin (TNIH) and attachments. Platelets bldOrdered By: ED PROVIDER on 05-24-2023 Platelets (Bld) [#/Vol] 234 10*3/uL 150-450 [facility] RSV Ag EIAOrdered By: Steve torrez on 05-24-2023 RSV Ag Immune stain Ql (Tiss) [facility] Review by pathologistOrdered By: ED PROVIDER on 05-24-2023 Pathologist review Max (Unsp spec) [Interp] October foll [facility] Serum or plasma calcium mikael urement (mass/volume)Ordered By: ED PROVIDER on 05-24-2023 Calcium [Mass/Vol] 8.8 mg/dL 8.5-10.1 [facility] Serum or plasma creatinine m easurement (mass/volume)Ordered By: ED PROVIDER on 05-24-2023 Creatinine [Mass/Vol] 1.95 mg/dL 0.55-1.02 [facility] Comment on above: The validity of the calculated GFR & GFRAA in patients over 70 years has not been determined. Clinical correlation is essential. Serum or plasma urea nitroge n measurement (mass/volume)Ordered By: ED PROVIDER on 05-24-2023 Urea nitrogen [Mass/Vol] 23 mg/dL 7-18 [facility] Thin prep Papanicolaou smear with manual screeningOrdered By: ED PROVIDER on 05-24-2023 Thin prep Papanicolaou smear with manual screening 8 5-15 [facility] CNOVon 05-22-2023 CNOV Office Visit (WSTR ) RICHELLE CARDOZO ([id number]) 1955 F Date Time Provider Department 05/22/23 9:45 AM [facility] During your visit today, we recorded the following information about you: Temperature Pulse Respiration Blood pressure 96.9 degrees 102/minute 16/minute 126/68 Weight 64.4 kg Mohini Davidson APRN.CNP 05/22/2023 10:05 AM Signed Subjective The history is provided by the patient. No american sign language interpreter was used. HPI Richelle A Juliane is a 68 year old female who [...] kidney disease) stage 3, GFR 30-59 ml/min ([facility]) 2013 Diverticulosis of colon 08/04/2005 Duodenitis without mention of hemorrhage 04/12/2010 Epidermal inclusion cyst 09/03/2017 Removed right knee 08/2017 Essential hypertension 07/30/2017 Family history of malignant neoplasm of gastrointestinal tract 01/07/2015 GERD (gastroesophageal reflux disease) 11/10/2014 GRANULOMA ANNULARE///ERYTHEMATOU S COND NEC 09/11/2008 History of DVT (deep [...] have confirmed and edited as necessary, the [facility] Review of Systems Constitutional: Negative [...] - Supportive care with fluids and rest (more content not included)... Normal [facility] AMANUEL Lloyd BAYRONKaelyn Blanco 10-[address] [facility] US BREAST LTD RIGHTon [address] [facility] SUSHIL SCREENINGon 02-09-[address] [facility] Basophil percentageOrdered B y: Dr. Raygoza on 11-22-2022 Basophil percentage 4.1 mg/dL 2.5-4.9 [facility] Chloride [Moles/Vol] 108 mmol/L 98-107 [facility] Glucose [Mass/Vol] 84 mg/dL 74-106 [facility] Potassium [Moles/Vol] 3.9 mmol/L 3.5-5.1 [facility] Sodium [Moles/Vol] 139 mmol/L 136-145 [facility] WBC (Bld) [#/Vol] 5.7 10*3/uL 4.4-11.0 [facility] Blood erythrocytes count (nu mber/volume)Ordered By: Dr. Raygoza on 11-22-2022 RBC (Bld) [#/Vol] 4.21 10*6/uL 4.2-5.4 [facility] Blood hemoglobin measurement (mass/volume)Ordered By: Dr. Raygoza on 11-22-2022 Hemoglobin (Bld) [Mass/Vol] 12.2 g/dL 12.0-15.0 [facility] Blood platelet mean volumeOr dered By: Dr. Raygoza on 11-22-2022 Platelet mean volume (Bld) [Entitic vol] 9.9 fL 6.2-12.0 [facility] Determination of erythrocyte mean corpuscular volume (MCV)Ordered By: Dr. Raygoza on 11-22-2022 MCV (RBC) [Entitic vol] 93.6 fL 81-99 [facility] Hematocrit Auto (Bld) [Volum e fraction]Ordered By: Dr. Raygoza on 11-22-2022 Hematocrit (Bld) [Volume fraction] 39.4 % 37-47 [facility] Iron measurement (mass/mass) Ordered By: Dr. Raygoza on 11-22-2022 Iron (Unsp spec) [Mass/Mass] 71 ug/dL 50-170 [facility] Laboratory - Chemistry and C hemistry - challengeOrdered By: Dr. Raygoza on 11-22-2022 CO2 [Moles/Vol] 26.0 mmol/L 21.0-32.0 [facility] Urea nitrogen/Creatinine [Mass ratio] 9.6 mg/mg 10-20 [facility] Laboratory - Hematology and Cell countsOrdered By: Dr. Raygoza on 11-22-2022 Erythrocyte distribution width (RBC) [Entitic vol] 51.3 fL 35.1-43.9 [facility] Erythrocyte distribution width (RBC) [Ratio] 14.8 % 11.6-14.6 [facility] MCH (RBC) [Entitic mass] 29.0 pg 27.0-32.0 [facility] MCHC Auto (RBC) [Mass/Vol]Or dered By: Dr. Raygoza on 11-22-2022 MCHC (RBC) [Mass/Vol] 31.0 g/dL 32-36 [facility] No Panel InformationOrdered By: Dr. Raygoza on 11-22-2022 Estimated GFR (MDRD) Amer 50 mL/min >60 [facility] Comment on above: GFR Calc Estimated GFR (MDRD) Non-Af Amer 41 mL/min >60 [facility] Comment on above: Non- GFR Calc Total Iron Binding Capacity 315 ug/dL 250-450 [facility] Platelets bldOrdered By: Dr. Raygoza on 11-22-2022 Platelets (Bld) [#/Vol] 296 10*3/uL 150-450 [facility] Serum or plasma albumin mikael urement (mass/volume)Ordered By: Dr. Raygoza on 11-22-2022 Albumin [Mass/Vol] 3.5 g/dL 3.2-5.0 [facility] Serum or plasma calcium mikael urement (mass/volume)Ordered By: Dr. Raygoza on 11-22-2022 Calcium [Mass/Vol] 9.6 mg/dL 8.5-10.1 [facility] Serum or plasma creatinine m easurement (mass/volume)Ordered By: Dr. Raygoza on 11-22-2022 Creatinine [Mass/Vol] 1.35 mg/dL 0.55-1.02 [facility] Comment on above: The validity of the calculated GFR & GFRAA in patients over 70 years has not been determined. Clinical correlation is essential. Serum or plasma ferritin rand surement (mass/volume)Ordered By: Dr. Raygoza on 11-22-2022 Ferritin [Mass/Vol] 35 ng/mL 8 [facility] Serum or plasma urea nitroge n measurement (mass/volume)Ordered By: Dr. Raygoza on 11-22-2022 Urea nitrogen [Mass/Vol] 13 mg/dL 718 [facility] XR Chest PA and Lateralon IMPRESSION: No acute radiographic abnormality. Specifically, no airspace consolidations and no pleural effusion. Hand Coke Drawer: BROOKS Transcribe Date/Time: Nov 10 2022 6:39P Dictated by : ALISON SENIOR MD This examination was interpreted and the report reviewed and electronically signed by: ALISON SENIOR MD on Nov 10 2022 6:40PM [facility] DIVISION OF RADIOLOGY * * *Final Report* * * DATE OF EXAM: Nov 10 2022 12:18PM WOX [id number] - XR CHEST 2V FRONTAL/LAT / PROCEDURE REASON: Bacterial pneumonia * * * * Physician Interpretation * * * * EXAMINATION: CHEST RADIOGRAPH (2 VIEW FRONTAL & LATERAL) CLINICAL HISTORY: Bacterial pneumonia MQ: [id number] EXAM DATE/TIME: 11/10/2022 12:18 PM COMPARISON: 10/06/2022 RESULT: Lines, tubes, and devices: None. Lungs and pleura: No consolidation. No lung mass. No pleural effusion. No pneumothorax. Cardiomediastinal silhouette: Normal cardiomediastinal silhouette. Mild unfolding or ectasia of the ascending thoracic aorta. Mild atherosclerotic calcifications of the aortic arch noted. Bones and soft tissues: Unremarkable. DIVISION OF RADIOLOGY Provider, [facility] - 11/10/2022 * * *Final Report* * * DATE OF EXAM: Nov 10 2022 12:18PM WOX 5291 - XR CHEST 2V FRONTAL/LAT / PROCEDURE REASON: Bacterial pneumonia * * * * Physician Interpretation * * * * EXAMINATION: CHEST RADIOGRAPH (2 VIEW FRONTAL & LATERAL) CLINICAL HISTORY: Bacterial pneumonia MQ: XC2_6 EXAM DATE/TIME: 11/10/2022 12:18 PM COMPARISON: 10/06/2022 RESULT: Lines, tubes, and devices: None. Lungs and pleura: No consolidation. No lung mass. No pleural effusion. No pneumothorax. Cardiomediastinal silhouette: Normal cardiomediastinal silhouette. Mild unfolding or ectasia of the ascending thoracic aorta. Mild atherosclerotic calcifications of the aortic arch noted. Bones and soft tissues: Unremarkable. IMPRESSION IMPRESSION: No acute radiographic abnormality. Specifically, no airspace consolidations and no pleural effusion. Hand Coke Drawer: BROOKS Transcribe Date/Time: Nov 10 2022 6:39P Dictated by : ALISON SENIOR MD This examination was interpreted and the report reviewed and electronically signed by: ALISON SENIOR MD on Nov 10 2022 6:40PM EST [facility] Radiology Study observation (narrative) Susana [facility] XR Chest PA and LateralOrder ed By: Ccf Provider on 11-10-[address] [facility] XR Chest PA and Lateralon IMPRESSION: Improvement without resolution of the lingular infiltrate. A follow-up exam is recommended. Hand Coke Drawer: BROOKS Transcribe Date/Time: Oct 08 2022 4:23P Dictated by : FRED RONQUILLO MD This examination was interpreted and the report reviewed and electronically signed by: FRED RONQUILLO MD on Oct 08 2022 4:23PM [facility] DIVISION OF RADIOLOGY * * *Final Report* * * DATE OF EXAM: Oct 06 2022 11:15AM WOX 5291 - XR CHEST 2V FRONTAL/LAT / PROCEDURE REASON: Bacterial pneumonia * * * * Physician Interpretation * * * * EXAMINATION: CHEST RADIOGRAPH (2 VIEW FRONTAL & LATERAL) CLINICAL HISTORY: Bacterial pneumonia MQ: XC2_6 EXAM DATE/TIME: 10/06/2022 11:15 AM COMPARISON: 09/11/2022. RESULT: Lines, tubes, and devices: None. Lungs and pleura: There has been improvement of the lingular infiltrate. No consolidation. No lung mass. No pleural effusion. No pneumothorax. Cardiomediastinal silhouette: Normal cardiomediastinal silhouette. Bones and soft tissues: Unremarkable. DIVISION OF RADIOLOGY Provider, Lissy Kiko Solano - 10/08/2022 * * *Final Report* * * DATE OF EXAM: Oct 06 2022 11:15AM WOX 5291 - XR CHEST 2V FRONTAL/LAT / PROCEDURE REASON: Bacterial pneumonia * * * * Physician Interpretation * * * * EXAMINATION: CHEST RADIOGRAPH (2 VIEW FRONTAL & LATERAL) CLINICAL HISTORY: Bacterial pneumonia MQ: XC2_6 EXAM DATE/TIME: 10/06/2022 11:15 AM COMPARISON: 09/11/2022. RESULT: Lines, tubes, and devices: None. Lungs and pleura: There has been improvement of the lingular infiltrate. No consolidation. No lung mass. No pleural effusion. No pneumothorax. Cardiomediastinal silhouette: Normal cardiomediastinal silhouette. Bones and soft tissues: Unremarkable. IMPRESSION IMPRESSION: Improvement without resolution of the lingular infiltrate. A follow-up exam is recommended. Hand Coke Drawer: BROOKS Transcribe Date/Time: Oct 08 2022 4:23P Dictated by : FRED RONQUILLO MD This examination was interpreted and the report reviewed and electronically signed by: FRED RONQUILLO MD on Oct 08 2022 4:23PM EST [facility] XR Chest PA and LateralOrder ed By: Ccf Provider on 10-08-[address] [facility] XR Chest PA and Lateralon Radiology Study observation (narrative) [facility] No Panel InformationOrdered By: Ccf Provider on 09-11-2022 Radiology Result ACTIONABLE Abnormal [facility] Comment on above: This report contains an incidental or actionable finding. This finding may be a new finding separate from the reason your provider ordered the imaging test or it may be an already known finding that needs additional or continued follow-up. Because of this incidental or actionable finding, you may need another test (imaging or a different type of test). Please contact your provider for the next steps. XR Chest PA and LateralOrder ed By: Ccf Provider on 09-11-2022 Interpretation and review of laboratory results Abnormal [facility] XR Chest PA and Lateralon IMPRESSION: Airspace opacity in the periphery of the left base with suggestion of central lucency. Although findings may be related to pneumonia with possible central cavitation, more aggressive process certainly not excluded. Clinical correlation requested and either short-term follow-up radiographs after appropriate interval treatment or further evaluation with contrast-enhanced CT chest is advised. ACTIONABLE RESULT: FOLLOW-UP Acuity: Actionable Findings: Thoracic-Other Routing Code: CT_1 Recommendation: Unlisted Recommendation (see report) Time Frame: At the discretion of the clinical team. COMMUNICATION: Results will be communicated with the ordering provider via Harri staff message or phone message by [facility] within 2 business days of report finalization. Algorithms for management of incidental imaging findings can be found on the [facility] Intranet Sharepoint site at: [email or web address]%20Incidenta l%20Findi ngs%20at%20Imaging/For ms/[email or web address].[email or web address] Hand Coke Drawer: BROOKS Transcribe Date/Time: Sep 11 2022 11:09A Dictated by : HARVEY MENDOZA MD This examination was interpreted and the report reviewed and electronically signed by: HARVEY MENDOZA MD on Sep 11 2022 11:11AM [facility] DIVISION OF RADIOLOGY * * *Final Report* * * DATE OF EXAM: Sep 11 2022 11:00AM WOX 5291 - XR CHEST 2V FRONTAL/LAT / PROCEDURE REASON: Acute cough * * * * Physician Interpretation * * * * EXAMINATION: CHEST RADIOGRAPH (2 VIEW FRONTAL & LATERAL) CLINICAL HISTORY: Acute cough MQ: XC2_6 EXAM DATE/TIME: 09/11/2022 11:00 AM COMPARISON: No relevant prior studies available. RESULT: Lines, tubes, and devices: None. Lungs and pleura: Airspace opacity in the periphery of the left base with suggestion of central lucency. No discernible pleural effusion or pneumothorax. Cardiomediastinal silhouette: Normal cardiomediastinal silhouette. Bones and soft tissues: Mild degenerative changes. DIVISION OF RADIOLOGY Provider, [facility] - 09/11/2022 * * *Final Report* * * DATE OF EXAM: Sep 11 2022 11:00AM WOX 5291 - XR CHEST 2V FRONTAL/LAT / PROCEDURE REASON: Acute cough * * * * Physician Interpretation * * * * EXAMINATION: CHEST RADIOGRAPH (2 VIEW FRONTAL & LATERAL) CLINICAL HISTORY: Acute cough MQ: XC2_6 EXAM DATE/TIME: 09/11/2022 11:00 AM COMPARISON: No relevant prior studies available. RESULT: Lines, tubes, and devices: None. Lungs and pleura: Airspace opacity in the periphery of the left base with suggestion of central lucency. No discernible pleural effusion or pneumothorax. Cardiomediastinal silhouette: Normal cardiomediastinal silhouette. Bones and soft tissues: Mild degenerative changes. IMPRESSION IMPRESSION: Airspace opacity in the periphery of the left base with suggestion of central lucency. Although findings may be related to pneumonia with possible central cavitation, more aggressive process certainly not excluded. Clinical correlation requested and either short-term follow-up radiographs after appropriate interval treatment or further evaluation with contrast-enhanced CT chest is advised. ACTIONABLE RESULT: FOLLOW-UP Acuity: Actionable Findings: Thoracic-Other Routing Code: CT_1 Recommendation: Unlisted Recommendation (see report) Time Frame: At the discretion of the clinical team. COMMUNICATION: Results will be communicated with the ordering provider via Harri staff message or phone message by [facility] within 2 business days of report finalization. Algorithms for management of incidental imaging findings can be found on the [facility] Intranet Sharepoint site at: [email or web address]%20Incidenta l%20Findi ngs%20at%20Imaging/For ms/[email or web address].aspx Hand Coke Drawer: BROOKS Transcribe Date/Time: Sep 11 2022 11:09A Dictated by : HARVEY MENDOZA MD This examination was interpreted and the report reviewed and electronically signed by: HARVEY MENDOZA MD on Sep 11 2022 11:11AM EST [facility] Radiology Study observation (narrative) [facility] Bordetella pertussis IgM ant ibody assayon 03-17-2022 B. pertussis IgM IA Qn (S) 3.4 index 0.0-0.9 [facility] Work Phone: Comment on above: Negative <1.0 Border line 1.0 - 1.1 Positive >1.1Performed at: [facility] [address] [id number] Director: William Bansal MD, Phone: [phone] CALLED TO ZEN HOMAR 03/21/22 1327 Renée Brand.REPORT READ BACK BY SAME. No Panel Informationon 03-17 Bordetella pertussis IgG Antibody 1.99 index 0.00-0.94 [facility] Work Phone: Comment on above: Negative <0.95 Equiv ocal 0.95 - 1.04 Positive >1.04 Serum Treponema species anti body detectionon 03-17-2022 Treponema sp Ab Ql (S) Non-Reactive [facility] Work Phone: SUSHIL SCREENINGon 01-13-[address] [facility] Basophil percentageon 2021 Basophil percentage 4.3 mg/dL 2.5-4.9 [facility] Work Phone: [phone] Chloride [Moles/Vol] 107 mmol/L 98-107 [facility] Work Phone: [phone] Glucose [Mass/Vol] 91 mg/dL 74-106 [facility] Work Phone: [phone] Potassium [Moles/Vol] 4.0 mmol/L 3.5-5.1 [facility] Work Phone: Sodium [Moles/Vol] 138 mmol/L 136-145 [facility] Work Phone: [phone] WBC (Bld) [#/Vol] 8.3 10*3/uL 4.4-11.0 [facility] Work Phone: Blood erythrocytes count (nu mber/volume)on 11-17-2021 RBC (Bld) [#/Vol] 3.97 10*6/uL 4.2-5.4 [facility] Work Phone: Blood hemoglobin measurement (mass/volume)on 11-17-2021 Hemoglobin (Bld) [Mass/Vol] 11.9 g/dL 12.0-15.0 [facility] Work Phone: Blood platelet mean volumeon 11-17-2021 Platelet mean volume (Bld) [Entitic vol] 9.9 fL 6.2-12.0 [facility] Work Phone: [phone] Determination of erythrocyte mean corpuscular volume (MCV)on 11-17-2021 MCV (RBC) [Entitic vol] 93.5 fL 81-99 [facility] Work Phone: [phone] Hematocrit Auto (Bld) [Volum e fraction]on 11-17-2021 Hematocrit (Bld) [Volume fraction] 37.1 % 37-47 [facility] Work Phone: [phone] Laboratory - Chemistry and C hemistry - challengeon 11-17-2021 CO2 [Moles/Vol] 27.0 mmol/L 21.0-32.0 [facility] Work Phone: [phone] Urea nitrogen/Creatinine [Mass ratio] 15.3 mg/mg 10-20 [facility] Work Phone: [phone] Laboratory - Hematology and Cell countson 11-17-2021 Erythrocyte distribution width (RBC) [Entitic vol] 44.6 fL 35.1-43.9 [facility] Work Phone: [phone] Erythrocyte distribution width (RBC) [Ratio] 13.1 % 11.6-14.6 [facility] Work Phone: [phone] MCH (RBC) [Entitic mass] 30.0 pg 27.0-32.0 [facility] Work Phone: [phone] MCHC Auto (RBC) [Mass/Vol]on 11-17-2021 MCHC (RBC) [Mass/Vol] 32.1 g/dL 32-36 [facility] Work Phone: [phone] Panel Informationon 11-17 Estimated GFR (MDRD) Amer 49 mL/min >60 [facility] Work Phone: [phone] Comment on above: GFR Calc Estimated GFR (MDRD) Non-Af Amer 41 mL/min >60 [facility] Work Phone: [phone] Comment on above: Non- GFR Calc Platelets bldon 11-17-2021 Platelets (Bld) [#/Vol] 271 10*3/uL 150-450 [facility] Work Phone: Serum or plasma albumin mikael urement (mass/volume)on 11-17-2021 Albumin [Mass/Vol] 3.4 g/dL 3.2-5.0 [facility] Work Phone: Serum or plasma calcium mikael urement (mass/volume)on 11-17-2021 Calcium [Mass/Vol] 9.2 mg/dL 8.5-10.1 [facility] Work Phone: Serum or plasma creatinine m easurement (mass/volume)on 11-17-2021 Creatinine [Mass/Vol] 1.37 mg/dL 0.55-1.02 [facility] Work Phone: Comment on above: The validity of the calculated GFR & GFRAA in patients over 70 years has not been determined. Clinical correlation is essential. Serum or plasma urea nitroge n measurement (mass/volume)on 11-17-2021 Urea nitrogen [Mass/Vol] 21 mg/dL 12-19 [facility] Work Phone: Vital Signs Date Time Vital Sign Value Performing Clinician Facility 03-21-2024 08:56-0400 Body height 164.6 cm Mindi Scio MANAGER PARTY.[facility] Work Phone: [facility] 03-21-2024 08:56-0400 Body mass index (BMI) [Ratio] 23.64 kg/m2 Mindi Scio [employer]NAGER [employer] Work Phone: [facility] 03-21-2024 08:56-0400 Body weight 64.05 kg Mindi Scio MANAGER [employer] Work Phone: [facility] 03-21-2024 08:56-0400 Diastolic blood pressure 70 mm[Hg] Mindi William [employer]NAGER [employer] Work Phone: [facility] 03-21-2024 08:56-0400 Systolic blood pressure 122 mm[Hg] Mindi William [employer]NAGER [employer] Work Phone: [facility] 03-14-2024 12:52-0400 Body height 165.7 cm Vinny Briones MD Work Phone: [facility] 03-14-2024 12:52-0400 Body mass index (BMI) [Ratio] 23.52 kg/m2 Vinny Briones MD Work Phone: [facility] 03-14-2024 12:52-0400 Body weight 64.59 kg Vinny Briones MD Work Phone: [facility] 03-14-2024 12:52-0400 Diastolic blood pressure 70 mm[Hg] Vinny Briones MD Work Phone: [facility] 03-14-2024 12:52-0400 Heart rate 76 /min Vinny Briones MD Work Phone: [facility] 03-14-2024 12:52-0400 Systolic blood pressure 105 mm[Hg] Vinny Briones MD Work Phone: [facility] 01-05-2024 14:08-0400 Body mass index (BMI) [Ratio] 22.9 kg/m2 Mindi Scio [employer]NAGER [employer] Work Phone: [facility] 01-05-2024 14:08-0400 Body temperature 97.81 [degF] Mindi Scio MANAGER [employer] Work Phone: [facility] 01-05-2024 14:08-0400 Body weight 62.9 kg Mindi William MANAGER [employer]Y.[employer] Work Phone: [facility] 01-05-2024 14:08-0400 Diastolic blood pressure 68 mm[Hg] Mindi Scio MANAGER [employer] Work Phone: [facility] 01-05-2024 14:08-0400 Heart rate 92 /min Mindi Scio MANAGER [employer] Work Phone: [facility] 01-05-2024 14:08-0400 Respiratory rate 16 /min Mindi William MANAGER [employer]Y.[employer] Work Phone: [facility] 01-05-2024 14:08-0400 SaO2% (BldA) [Mass fraction] 99 % Mindi William [employer]NAGER [employer]Y.[employer] Work Phone: [facility] 01-05-2024 14:08-0400 Systolic blood pressure 104 mm[Hg] Mindi Thomas [employer]NAGER [employer]Y.[employer] Work Phone: [facility] 09-07-2023 13:27-0400 Body weight 59.88 kg Pedrito Mcdaniel MANAGER PARTY.[employer] Work Phone: [facility] 09-07-2023 13:27-0400 Diastolic blood pressure 60 mm[Hg] Pedrito Mcdaniel MANAGER PARTY.[employer] Work Phone: [facility] 09-07-2023 13:27-0400 Heart rate 84 /min Pedrito Mcdaniel MANAGER PARTY.[employer] Work Phone: [facility] 09-07-2023 13:27-0400 Respiratory rate 14 /min Pedrito Mcdaniel MANAGER PARTY.[employer] Work Phone: [facility] 09-07-2023 13:27-0400 Systolic blood pressure 100 mm[Hg] Pedrito Mcdaniel MANAGER PARTY.[employer] Work Phone: [facility] 08-02-2023 08:25-0500 Heart rate 65 /min Dr. Vinny Briones Work Phone: [facility] 08-02-2023 06:15-0500 Body temperature 97.8 [degF] Dr. Vinny Briones Work Phone: [facility] 08-02-2023 06:15-0500 Diastolic blood pressure 58 mm[Hg] Dr. Vinny Briones Work Phone: [facility] 08-02-2023 06:15-0500 Respiratory rate 16 /min Dr. Vinny Briones Work Phone: [facility] 08-02-2023 06:15-0500 SaO2% (BldA) [Mass fraction] 100 % Dr. Vinny Briones Work Phone: [facility] 08-02-2023 06:15-0500 Systolic blood pressure 101 mm[Hg] Dr. Vinny Briones Work Phone: 2(940)266-236025 [place] [address] 08-02-2023 00:38-0500 Inhaled oxygen flow rate 2 L/min Dr. Vinny Briones Work Phone: 8(686)980-329325 [place] [address] 08-01-2023 06:29-0500 Body height 167.[address] Vinny Briones Work Phone: 0(669)398-985425 [place] [address] 08-01-2023 06:29-0500 Body mass index (BMI) [Ratio] 21.3 kg/m2 Dr. Vinny Briones Work Phone: 0(361)872-491225 [place] [address] 08-01-2023 06:29-0500 Body weight [address] Vinny Briones Work Phone: 3(749)783-868625 [place] [address] 06-14-2023 10:49-0500 Body mass index (BMI) [Ratio] 21.5 kg/m2 Dr. Vinny Briones Work Phone: 3(298)929-284825 [place] [address] 06-14-2023 10:49-0500 Body weight 60.[address] Vinny Briones Work Phone: 4(321)472-027925 [place] [address] 06-14-2023 10:49-0500 Diastolic blood pressure 60 mm[Hg] Dr. Vinny Briones Work Phone: 5(221)988-731325 [place] [address] 06-14-2023 10:49-0500 Heart rate 60 /min Dr. Vinny Briones Work Phone: 5(439)875-325325 [place] [address] 06-14-2023 10:49-0500 Respiratory rate 16 /min Dr. Vinny Briones Work Phone: 2(297)837-062225 [place] [address] 06-14-2023 10:49-0500 Systolic blood pressure 96 mm[Hg] Dr. Vinny Briones Work Phone: 9(971)247-175725 [place] [address] 05-29-2023 14:03-0500 SaO2% (BldA) [Mass fraction] 90 % Dr. Vinny Briones Work Phone: 3(958)531-315225 [place] [address] 05-29-2023 12:22-0500 Body temperature 97.9 [degF] Dr. Vinny Briones Work Phone: 6(777)069-384225 [place] [address] 05-29-2023 12:22-0500 Diastolic blood pressure 54 mm[Hg] Dr. Vinny Briones Work Phone: [facility] 05-29-2023 12:22-0500 Heart rate 77 /min Dr. Vinny Briones Work Phone: [facility] 05-29-2023 12:22-0500 Respiratory rate 18 /min Dr. Vinny Briones Work Phone: [facility] 05-29-2023 12:22-0500 Systolic blood pressure 93 mm[Hg] Dr. Vinny Briones Work Phone: 6(313)787-278756 [place] [address] 05-27-2023 11:00-0500 Inhaled oxygen flow rate 2 L/min Dr. Vinny Briones Work Phone: 0(918)000-174956 [place] [address] 05-27-2023 09:44-0500 Inhaled oxygen concentration 3 % Dr. Vinny Briones Work Phone: [facility] 05-25-2023 10:48-0500 Body height [address] Vinny Briones Work Phone: 2(134)475-264556 [place] [address] 05-25-2023 10:48-0500 Body weight 63.[address] Vinny Briones Work Phone: [facility] 05-25-2023 05:56-0500 Body height 168 cm [facility] 05-25-2023 05:56-0500 Body mass index (BMI) [Ratio] 22.5 kg/m2 [facility] 05-25-2023 05:56-0500 Body weight 63.6 kg [facility] 05-25-2023 05:51-0500 Body temperature 98.7 [degF] [facility] 05-25-2023 05:51-0500 Diastolic blood pressure 60 mm[Hg] [facility] 05-25-2023 05:51-0500 Heart rate 100 /min [facility] 05-25-2023 05:51-0500 Respiratory rate 20 /min [facility] 12-22-2023 05:51-0500 SaO2% (BldA) [Mass fraction] 94 % [facility] 05-25-2023 05:51-0500 Systolic blood pressure 115 mm[Hg] [facility] 05-25-2023 03:38-0500 Inhaled oxygen flow rate 2 L/min [facility] 2023 10:45-0400 Body temperature 98.29 [degF] Catherine Athy PA-C Work Phone: [facility] 2023 10:45-0400 Body weight 67.5 kg Catherine Athy PA-C Work Phone: [facility] 2023 10:45-0400 Diastolic blood pressure 74 mm[Hg] Catherine Athy PA-C Work Phone: [facility] 2023 10:45-0400 Heart rate 98 /min Catherine Athy PA-C Work Phone: [facility] 2023 10:45-0400 Respiratory rate 20 /min Catherine Athy PA-C Work Phone: [facility] 2023 10:45-0400 SaO2% (BldA) [Mass fraction] 97 % Catherine Athy PA-C Work Phone: [facility] 2023 10:45-0400 Systolic blood pressure 124 mm[Hg] Catherine Athy PA-C Work Phone: [facility] 10-09-2022 13:30-0400 Body temperature 98.4 [degF] Yokasta Mcnulty PA-C Work Phone: [facility] 10-09-2022 13:30-0400 Body weight 66.68 kg Yokasta Mcnulty PA-C Work Phone: [facility] 10-09-2022 13:30-0400 Diastolic blood pressure 78 mm[Hg] Yokasta Mcnulty PA-C Work Phone: [facility] 10-09-2022 13:30-0400 Heart rate 64 /min Yokasta Mcnulty PA-C Work Phone: [facility] 10-09-2022 13:30-0400 Respiratory rate 16 /min Yokasta Mcnulty PA-C Work Phone: [facility] 10-09-2022 13:30-0400 SaO2% (BldA) [Mass fraction] 100 % Yokasta Mcnulty PA-C Work Phone: [facility] 10-09-2022 13:30-0400 Systolic blood pressure 102 mm[Hg] Yokasta Mcnulty PA-C Work Phone: [facility] 09-15-2022 08:58-0400 Body temperature 97.7 [degF] Yokasta Mcnulty PA-C Work Phone: [facility] 09-15-2022 08:58-0400 Body weight 66.22 kg Yokasta Mcnulty PA-C Work Phone: [facility] 09-15-2022 08:58-0400 Diastolic blood pressure 76 mm[Hg] Yokasta Mcnulty PA-C Work Phone: [facility] 09-15-2022 08:58-0400 Heart rate 98 /min Yokasta Mcnulty PA-C Work Phone: [facility] 09-15-2022 08:58-0400 Respiratory rate 18 /min Yokasta Mcnulty PA-C Work Phone: [facility] 09-15-2022 08:58-0400 SaO2% (BldA) [Mass fraction] 99 % Yokasta Mcnulty PA-C Work Phone: [facility] 09-15-2022 08:58-0400 Systolic blood pressure 108 mm[Hg] Yokasta Mcnulty PA-C Work Phone: [facility] 09-11-2022 10:36-0400 Body temperature 99.61 [degF] Catherine Montes De Ocay PA-C Work Phone: [facility] 09-11-2022 10:36-0400 Body weight 67.13 kg Catherine Athy PA-C Work Phone: [facility] 09-11-2022 10:36-0400 Diastolic blood pressure 62 mm[Hg] Catherine Athy PA-C Work Phone: [facility] 09-11-2022 10:36-0400 Heart rate 114 /min Catherine Athy PA-C Work Phone: [facility] 09-11-2022 10:36-0400 Respiratory rate 18 /min Catherine Athy PA-C Work Phone: [facility] 09-11-2022 10:36-0400 SaO2% (BldA) [Mass fraction] 95 % Catherine Athy PA-C Work Phone: [facility] 09-11-2022 10:36-0400 Systolic blood pressure 122 mm[Hg] Catherine Athy PA-C Work Phone: [facility] 08-10-2022 16:11-0500 Body weight 69.4 kg Pedrito Yakelin [employer]NAGER [employer] Work Phone: [facility] 08-10-2022 16:11-0500 Diastolic blood pressure 80 mm[Hg] Pedrito Alexoble [employer]NAGER [employer] Work Phone: [facility] 08-10-2022 16:11-0500 Heart rate 80 /min Pedrito Knoble MANAGER [employer] Work Phone: [facility] 08-10-2022 16:11-0500 Respiratory rate 14 /min Pedrito Alexoble MANAGER PARTY.HAND WOOD SANDER Work Phone: [facility] 08-10-2022 16:11-0500 Systolic blood pressure 124 mm[Hg] Pedrito Knoble MANAGER PARTY.HAND WOOD SANDER Work Phone: [facility] 01-13-2022 07:01-0400 Body height 165.7 cm Mindi William MANAGER PARTY.HAND WOOD SANDER Work Phone: [facility] 01-13-2022 07:01-0400 Body weight 69.67 kg Mindi William MANAGER PARTY.HAND WOOD SANDER Work Phone: [facility] 01-13-2022 07:01-0400 Diastolic blood pressure 66 mm[Hg] Mindi Thomas MANAGER PARTY.HAND WOOD SANDER Work Phone: [facility] 01-13-2022 07:01-0400 Systolic blood pressure 120 mm[Hg] Mindi Thomas MANAGER PARTY.HAND WOOD SANDER Work Phone: [facility] Encounters Encounter Date Encounter Type Care Provider Facility Start: 11-03-2024 [facility] Facility: [facility] Start: 03-21-2024 Encounter for gynecological examination (general) (routine) without abnormal findings [facility] Start: 03-21-2024 End: 03-21-2024 ambulatory VINNY BRIONES Facility:[facility] Start: 03-21-2024 End: 03-21-2024 Patient encounter procedure Mindi Thomas MANAGER PARTY.HAND WOOD SANDER Work Phone: OB/Gynecology Comment on above: Encounter for gyneco logical examination (general) (routine) without abnormal findings (Primary Dx); Encounter for screening mammogram for breast cancer Start: 03-21-2024 End: 03-21-2024 Patient encounter status Mindi Thomas MANAGER PARTY.HAND WOOD SANDER Work Phone: [facility] Start: 03-21-2024 End: 03-21-2024 ambulatory MINDI WILLIAM Facility:[facility] Start: 03-21-2024 End: 03-21-2024 Subsequent hospital visit by physician Screen Mammo Counts Include 234 Beds At [facility] Mammogram Comment on above: Encounter for screen ing mammogram for malignant neoplasm of breast [Z12.31] Start: 03-15-2024 End: 03-15-2024 Telephone encounter Vinny Briones MD Work Phone: [facility] Comment on above: Results Start: 03-14-2024 End: 03-14-2024 ambulatory VINNY BRIONES Facility:[facility] Start: 03-14-2024 End: 03-14-2024 Patient encounter procedure Vinny Briones MD Work Phone: [facility] Comment on above: Encounter for Medica re annual wellness exam (Primary Dx); Essential hypertension; Mixed hyperlipidemia; Stage 3a chronic kidney disease (HCC); Anemia of chronic disease; Sjogren's syndrome, with unspecified organ involvement (HCC); Malignant neoplasm of right kidney, except renal pelvis (HCC); Advance directive discussed with patient; Screening for depression; Encounter for screening examination for other mental health and behavioral disorders; Need for vaccination; Upper respiratory tract infection, unspecified type; Encounter for screening for diabetes mellitus; Medication management Start: 03-14-2024 End: 03-14-2024 ambulatory VINNY BRIONES Facility:[facility] Start: 01-14-2024 Chart abstracting Batsheva barraza [facility] Comment on above: Results - Ct ([facility] ) Start: 01-10-2024 Chart abstracting Vinny wall MD Work Phone: [facility] Comment on above: Outside Emde-Tik-CCB Ordered Start: 01-10-2024 End: 01-10-2024 ambulatory Oziel Proano Facility:[facility] Start: 01-05-2024 End: 01-05-2024 ambulatory VINNY BRIONES Facility:[facility] Start: 01-05-2024 End: 01-05-2024 Patient encounter procedure Mindi Thomas APRN.CNP Work Phone: [facility] Comment on above: Bacterial sinusitis (Primary Dx) Start: 12-31-2023 Chart abstracting Vinny wall MD Work Phone: [facility] Comment on above: Outside Diabetic Eye Exam Outside Urology Start: 12-11-2023 Chart abstracting Batsheva barraza [facility] Comment on above: Consult (Cardiology ) Start: 12-07-2023 End: 12-07-2023 ambulatory Jerald Perez Facility:[facility] Start: 11-27-2023 Telephone encounter Vinny Briones MD Work Phone: [facility] Comment on above: Results Start: 11-23-2023 End: 11-23-2023 ambulatory YOKASTA MCNULTY Facility:[facility] Start: 11-20-2023 Chart abstracting Vinny wall MD Work Phone: [facility] Comment on above: Outside Nephrology Start: 11-13-2023 Chart abstracting Batsheva Romero [facility] Comment on above: Results Start: 11-12-2023 End: 11-12-2023 ambulatory Ly Raygoza Facility:[facility] Start: 11-01-2023 Chart abstracting Vinny wall MD Work Phone: [facility] Comment on above: Outside Echo Start: 09-21-2023 Telephone encounter Yokasta miranda PA-C Work Phone: [facility] Comment on above: Results Start: 09-20-2023 End: 09-20-2023 ambulatory VINNY BRIONES Facility:[facility] Start: 09-17-2023 Telephone encounter Vinny Briones MD Work Phone: [facility] Comment on above: Results Start: 09-07-2023 End: 09-07-2023 Patient encounter procedure Pedrito Mcdaniel APRN.HAND WOOD SANDER Work Phone: [facility] Comment on above: Abnormal EKG (Primar y Dx); Renal mass; Stage 3a chronic kidney disease (HCC) Start: 09-07-2023 End: 09-07-2023 ambulatory VINNY BRIONES Facility:[facility] Start: 09-03-2023 End: 09-03-[address] Vinny Briones Work Phone: [facility] Work Phone: Start: 09-03-2023 End: 09-03-[address] Vinny Briones Work Phone: [facility] Work Phone: Start: 09-03-2023 Chart abstracting Vinny awll MD Work Phone: [facility] Comment on above: Outside Qluh-Ifo-TES Ordered Start: 08-21-2023 Chart abstracting [facility] wall MD [facility] Comment on above: Outside U[facility] Start: 08-01-2023 Chart abstracting Vinny wall MD Work Phone: [phone] [place] [address] Comment on above: Outside Procedure (Discharge Instructions, H&P) Start: 08-01-2023 End: 08-02-2023 Admission to same day surgery center Dr. Vinny Briones Work Phone: [facility] Start: 08-01-2023 End: 08-02-[address] Vinny Briones Work Phone: [facility] Work Phone: Start: 07-25-2023 Chart abstracting Vinny wall MD Work Phone: [facility] Comment on above: Outside Olhg-Raf-XHG Ordered Start: 06-26-2023 End: 06-26-[address] Vinny Briones Work Phone: [facility] Work Phone: Start: 06-14-2023 End: 06-14-[address] Vinny Briones Work Phone: [facility] Work Phone: Start: 06-05-2023 End: 06-05-2023 ambulatory VINNY BRIONES Facility:[facility] Start: 05-29-2023 Non-patient / Non-visit Dr. Collin Briones Work Phone: [facility] Work Phone: Start: 05-29-2023 Non-patient / Non-visit Dr. Collin Briones Work Phone: [facility] Start: 05-28-2023 Non-patient / Non-visit Dr. Collin Briones Work Phone: [facility] Work Phone: Start: 05-27-2023 Non-patient / Non-visit Dr. Collin Briones Work Phone: [facility] Work Phone: Start: 05-26-2023 Non-patient / Non-visit Dr. Collin Briones Work Phone: [facility] Work Phone: Start: 05-25-2023 Non-patient / Non-visit Dr. Collin Briones Work Phone: [facility] Start: 05-25-2023 Non-patient / Non-visit Dr. Collin Briones Work Phone: [facility] Start: 05-25-2023 End: 05-29-2023 [facility] Work Phone: Start: 05-22-2023 End: 05-22-2023 ambulatory VINNY BRIONES Facility:[facility] Start: 03-13-2023 End: 03-13-2023 Subsequent hospital visit by physician Diagnostic Mammo Counts Include 234 Beds At [facility] Mammogram Comment on above: Abnormal mammogram [ R92.8] Start: 02-26-2023 Chart abstracting Vinny wall MD Work Phone: [facility] Comment on above: Outside Sujk-Hyi-VDT Ordered Start: 2023 End: 2023 Patient encounter procedure Catherine Fernández PA-C Work Phone: [facility] Comment on above: Acute pansinusitis, recurrence not specified (Primary Dx) Start: 02-13-2023 Telephone encounter Mindi goldberg MANAGER PARTYChelyHAND WOOD SANDER Work Phone: OB/Gynecology Comment on above: Orders Mammogram Result Michael l Back Start: 02-12-2023 Documentation procedure Mammog jacqueline Coordinator [facility] Start: 02-12-2023 Letter encounter Mammography Coordinator [facility] Department Start: 02-09-2023 End: 02-09-2023 Subsequent hospital visit by physician Screen Mammo Counts Include 234 Beds At [facility] Mammogram Comment on above: Encounter for screen ing mammogram for breast cancer [Z12.31] Start: 11-29-2022 Chart abstracting Vinny wall MD Work Phone: [facility] Comment on above: Outside Nephrology Start: 11-24-2022 Chart abstracting Vinny wall MD Work Phone: [facility] Comment on above: Results Start: 11-22-2022 End: 11-22-2022 ambulatory [facility] Work Phone: Start: 11-22-2022 End: 11-22-2022 Patient encounter procedure [facility] Start: 11-10-2022 End: 11-10-2022 Subsequent hospital visit by physician Xr [facility] Work Phone: Radiology Comment on above: Bacterial pneumonia [J15.9] Start: 10-09-2022 Telephone encounter Yokasta TERRAZAS-Renato Work Phone: [facility] Comment on above: Results Start: 10-09-2022 End: 10-09-2022 Patient encounter procedure Yokasta Mcnulty PA-C Work Phone: [facility] Comment on above: Bacterial pneumonia (Primary Dx) Start: 10-06-2022 End: 10-06-2022 Subsequent hospital visit by physician Xr [facility] Work Phone: Radiology Comment on above: Bacterial pneumonia [J15.9] Start: 09-15-2022 End: 09-15-2022 Patient encounter procedure Yokasta TERRAZAS-Renato Work Phone: [facility] Comment on above: Bacterial pneumonia (Primary Dx) Start: 09-11-2022 End: 09-11-2022 Subsequent hospital visit by physician Xr [facility] Work Phone: Radiology Comment on above: Acute cough [R05.1] Start: 09-11-2022 End: 09-11-2022 Patient encounter procedure Catherine Fernández PA-C Work Phone: [facility] Comment on above: Bacterial pneumonia (Primary Dx) Start: 09-07-2022 Chart abstracting Vinny wall MD Work Phone: [facility] Comment on above: Consult (/) Start: 08-10-2022 End: 08-10-2022 Patient encounter procedure Pedrito Mcdaniel APRN.HAND WOOD SANDER Work Phone: [facility] Comment on above: Medicare annual well ness visit, initial (Primary Dx); Essential hypertension; Mixed hyperlipidemia; Anemia of chronic disease; Stage 3a chronic kidney disease (HCC); Celiac disease; Well adult exam Start: 08-10-2022 End: 08-10-2022 Patient encounter status Pedrito Mcdaniel APRN.HAND WOOD SANDER Work Phone: [facility] Start: 07-12-2022 Telephone encounter Batsheva Hassan MA [facility] Comment on above: Appointment Start: 07-10-2022 ambulatory [facility] Head [facility] Comment on above: Population Health Na vigation Outreach ([facility]) Start: 04-05-2022 ambulatory Batsheva Hassan MA [facility] Comment on above: Results Start: 04-05-2022 E-mail encounter fro m caregiver Batsheva Hassan MA [facility] Start: 03-17-2022 End: 03-17-2022 ambulatory [facility] Work Phone: Start: 03-17-2022 End: 03-17-2022 Patient encounter procedure [facility] Start: 02-13-2022 Telephone encounter Vinny Briones MD Work Phone: [facility] Comment on above: Patient Question Start: 01-13-2022 Documentation procedure Mammog jacqueline [facility] Start: 01-13-2022 Letter encounter Mammography Coordinator [facility] Department Start: 01-13-2022 Telephone encounter Mindi goldberg APRN.HAND WOOD SANDER Work Phone: OB/Gynecology Comment on above: Orders Start: 01-13-2022 End: 01-13-2022 Subsequent hospital visit by physician Screen Mammo Counts Include 234 Beds At [facility] Mammogram Comment on above: Encounter for screen ing mammogram for breast cancer [Z12.31] Start: 01-13-2022 End: 01-13-2022 Patient encounter procedure Mindi Thomas APRN.HAND WOOD SANDER Work Phone: OB/Gynecology Comment on above: Encounter for gyneco logical examination (general) (routine) without abnormal findings (Primary Dx); Encounter for screening mammogram for breast cancer Start: 01-13-2022 End: 01-13-2022 Patient encounter status Mindi Thomas MARQUISE.HAND WOOD SANDER Work Phone: OB/Gynecology Start: 11-17-2021 End: 11-17-2021 Patient encounter procedure [facility] Start: 01-30-2018 Patient encounter status Mindi Thomas MARQUISE.HAND WOOD SANDER Work Phone: [facility] Work Phone: Start: 10-21-2015 End: 12-02-2015 Patient encounter status Vinny Briones MD Work Phone: [facility] Procedures Date Procedure Procedure Detail Performing Clinician Start: 03-14-2024 PFIZER-BIONTECH COVI D-19 VACCINE AGE 12+ YR (COMIRNATY) Vinny Briones MD Work Phone: Start: 03-14-2024 Adult depression scr eening assessment Vinny Briones MD Work Phone: Start: 03-14-2024 Lipid 1996 panel - S connor or Plasma Vinny Briones MD Work Phone: Start: 08-01-[address] Vinny Briones Work Phone: Start: 06-26-2023 Computed tomography of abdomen and pelvis with contrast Dr. Vinny Briones Work Phone: Start: 05-26-2023 Plain chest X-ray Dr. Farhan Briones Work Phone: Start: 05-25-2023 Bacteria identified in Blood by Culture Dr. Vinny Briones Work Phone: Start: 05-25-2023 Investigation of transfusion reaction Dr. Vinny Briones Work Phone: Start: 05-25-2023 Legionella pneumophi la antigen assay Dr. Vinny Briones Work Phone: Start: 05-25-2023 Res[address] micro[address] l culture Dr. Vinny Briones Work Phone: Start: 05-25-2023 Streptococcus pneumo niae Antigen (M Dr. Vinny Briones Work Phone: Start: 05-24-2023 CT angiography of ch est with contrast Start: 05-24-2023 Plain chest X-ray Start: 05-24-2023 Respiratory syncytia l virus antigen assay Start: 03-13-2023 Digital breast tomosynthesis unilateral Mindi Thomas MANAGER PARTY.HAND WOOD SANDER Work Phone: Start: 03-13-2023 Us breast uni real t surya with image limited Mindi Thomas MANAGER PARTY.HAND WOOD SANDER Work Phone: Start: 02-09-2023 Screening mammograph y bi 2-view breast inc cad Mindi Thomas MANAGER PARTY.HAND WOOD SANDER Work Phone: Start: 11-10-2022 Radiologic exam ches t 2 views Yokasta Mcnulty PA-C Work Phone: Start: 10-06-2022 Radiologic exam ches t 2 views Yokasta Mcnulty PA-C Work Phone: Start: 09-11-2022 Radiologic exam ches t 2 views Catherine Fernández PA-C Work Phone: Start: 08-10-2022 Ecg routine ecg w/le ast 12 lds i&r only [facility] Provider Start: 01-13-2022 End: 01-13-2022 Mammography Mindi Thomas MANAGER PARTY.C MOLECULAR BIOLOGY SCIENTIST Work Phone: Start: 01-27-2021 Colonoscopy Mindi Huntley yusuf MANAGER PARTY.HAND WOOD SANDER Work Phone: Start: 10-15-2020 Adult depression scr eening assessment Mindi Thomas MANAGER PARTY.HAND WOOD SANDER Work Phone: Start: 01-17-2018 Lipid 1996 panel - S connor or Plasma Mindi Thomas MANAGER PARTY.HAND WOOD SANDER Work Phone: Plan of Treatment Date Care Activity Detail Author Start: 03-14-2029 Lipid panel Lipid Screening [facility] Start: 03-14-2027 Diabetes Screening Diabetes Screenin g [facility] Start: 01-27-2026 Colonoscopy COLONOSCOPY [facility] Start: 01-27-2026 COLORECTAL CANCER SCREENING COLORECTAL CANCER SCREENING [facility] Start: 01-27-2026 Screening for malign ant neoplasm of colon [facility] Start: 03-21-2025 BP Controlled (<130/80) BP Controlle d (<130/80) [facility] Start: 03-14-2025 Annual PCP Team Director Smb Sales cas Disease Visit Annual PCP Team Chronic Disease Visit [facility] Start: 03-14-2025 Anxiety Screening Anxiety Screening [facility] Start: 03-14-2025 BP Controlled (<130/80) BP Controlle d (<130/80) [facility] Start: 03-14-2025 Complete blood count Hemoglobin/Demetrius tocrit [facility] Start: 03-14-2025 Creatinine measurement Serum Creatin ine [facility] Start: 03-14-2025 Depression Screening Depression Scre ening [facility] Start: 03-14-2025 RSV Vaccine (1 - Ris k 60-74 years 1-dose series) RSV Vaccine (1 - Risk 60-74 years 1-dose series) [facility] Comment on above: Postponed from 02/25 (Insurance Coverage) Start: 03-14-2025 Urine microalbumin profile DTaP,Tdap,Td Vaccine (3 - Td or Tdap) [facility] Comment on above: Postponed from 12/31 (Insurance Coverage) Start: 03-13-2025 End: 03-13-2025 Patient encounter procedure 03/13/2025 1:00 PM EDT Office Visit [facility] [address] [place], [place] [id number] Vinny Briones MD [address] [facility] [place] [id number] Medicare wellness [facility] Comment on above: Medicare wellness Start: 01-04-2025 BP Controlled (<130/80) BP Controlle d (<130/80) [facility] Start: 09-19-2024 Complete blood count Hemoglobin/Demetrius tocrit [facility] Start: 09-06-2024 Annual PCP Team Director Smb Sales cas Disease Visit Annual PCP Team Chronic Disease Visit [facility] Start: 09-06-2024 BP Controlled (<130/80) BP Controlle d (<130/80) [facility] Start: 06-05-2024 Annual PCP Team Director Smb Sales cas Disease Visit Annual PCP Team Chronic Disease Visit [facility] Start: 06-05-2024 BP Controlled (<130/80) BP Controlle d (<130/80) [facility] Start: 03-22-2024 End: 06-21-2024 CBC W Auto Differential panel - Blood COMPLETE BLOOD COUNT AND DIFFERENTIAL Lab Routine Anemia, unspecified type Expected: 03/22/2024, Expires: 06/21/2024 [facility] Work Phone: Comment on above: Expected: 03/22/2024 , Expires: 06/21/2024 Start: 03-22-2024 End: 03-22-2024 ambulatory 03/22/2024 11:30 AM EDT Results Only [facility] [address] [place] [address] [facility] Start: 03-21-2024 End: 03-21-2024 Patient encounter procedure 03/21/2024 2:10 PM EDT Appointment Mammogram [address] [place] [address] Mammogram Start: 03-21-2024 End: 03-21-2024 Patient encounter procedure Mammogram Comment on above: mammogram Annual exam Start: 03-14-2024 End: 06-13-2024 CBC W Auto Differential panel - Blood [facility] Comment on above: Expected: 03/14/2024 , Expires: 06/13/2024 Start: 03-14-2024 End: 06-13-2024 Comprehensive metabolic 2000 panel - Serum or Plasma [facility] Work Phone: Comment on above: Expected: 03/14/2024 , Expires: 06/13/2024 Start: 03-14-2024 End: 06-13-2024 LIPID PANEL, NONFASTING [facility] Comment on above: Expected: 03/14/2024 , Expires: 06/13/2024 Start: 03-14-2024 End: 06-13-2024 Urinalysis complete panel - Urine [facility] Comment on above: Expected: 03/14/2024 , Expires: 06/13/2024 Start: 03-14-2024 End: 03-14-2024 Patient encounter procedure 03/14/2024 1:40 PM EDT Office Visit [facility] [address] [place] [address] Vinny Briones MD [address] [place] [address] 6 month follow up [facility] Comment on above: 6 month follow up Start: 02-26-2024 BP Controlled (<130/80) BP Controlle d (<130/80) [facility] Start: 02-10-2024 Mammography Mammogram Screening [facility] Start: 02-10-2024 Screening for malign ant neoplasm of breast Mammogram Screening [facility] Start: 02-03-2024 Covid-19 Vaccine ( season) Covid-19 Vaccine () [facility] Start: 02-03-2024 Covid-19 Vaccine ( season) Covid-19 Vaccine ( season) [facility] Start: 02-03-2024 Influenza vaccination Influenza Vacc ine (#1) [facility] Start: 01-01-2024 Urine microalbumin profile [facility] Start: 11-23-2023 End: 11-23-2023 ambulatory 11/23/2023 11:30 AM EDT Results Only [facility] [address] [place] [address] [facility] Start: 10-10-2023 ANNUAL PCP TEAM POTASH FLAKER CAS DISEASE VISIT ANNUAL PCP TEAM CHRONIC DISEASE VISIT [facility] Start: 10-10-2023 BP CONTROLLED (<130/80) BP CONTROLLE D (<130/80) [facility] Start: 09-21-2023 End: 12-21-2023 Cobalamin (Vitamin B12) [Mass/volume] in Serum or Plasma VITAMIN B12 Lab Routine Anemia, unspecified type Expected: 09/21/2023, Expires: 12/21/2023 [facility] Work Phone: Comment on above: Expected: 09/21/2023 , Expires: 12/21/2023 Start: 09-21-2023 End: 12-21-2023 Iron and Iron binding capacity panel - Serum or Plasma IRON AND TIBC Lab Routine Anemia, unspecified type Expected: 09/21/2023, Expires: 12/21/2023 [facility] Work Phone: Comment on above: Expected: 09/21/2023 , Expires: 12/21/2023 Start: 09-17-2023 End: 12-17-2023 CBC W Auto Differential panel - Blood COMPLETE BLOOD COUNT AND DIFFERENTIAL Lab Routine Anemia, unspecified type Expected: 09/17/2023, Expires: 12/17/2023 [facility] Work Phone: Comment on above: Expected: 09/17/2023 , Expires: 12/17/2023 Start: 09-17-2023 End: 12-17-2023 Cobalamin (Vitamin B12) [Mass/volume] in Serum or Plasma VITAMIN B12 Lab Routine Anemia, unspecified type Expected: 09/17/2023, Expires: 12/17/2023 [facility] Work Phone: Comment on above: Expected: 09/17/2023 , Expires: 12/17/2023 Start: 09-17-2023 End: 12-17-2023 Erythropoietin (EPO) [Units/volume] in Serum or Plasma ERYTHROPOIETIN/EPO Lab Routine Anemia, unspecified type Expected: 09/17/2023, Expires: 12/17/2023 [facility] Work Phone: Comment on above: Expected: 09/17/2023 , Expires: 12/17/2023 Start: 09-17-2023 End: 12-17-2023 Ferritin [Mass/volume] in Serum or Plasma FERRITIN Lab Routine Anemia, unspecified type Expected: 09/17/2023, Expires: 12/17/2023 [facility] Work Phone: Comment on above: Expected: 09/17/2023 , Expires: 12/17/2023 Start: 09-17-2023 End: 12-17-2023 Folate [Mass/volume] in Serum or Plasma FOLATE, SERUM Lab Routine Anemia, unspecified type Expected: 09/17/2023, Expires: 12/17/2023 [facility] Work Phone: Comment on above: Expected: 09/17/2023 , Expires: 12/17/2023 Start: 09-17-2023 End: 12-17-2023 Iron and Iron binding capacity panel - Serum or Plasma IRON AND TIBC Lab Routine Anemia, unspecified type Expected: 09/17/2023, Expires: 12/17/2023 [facility] Work Phone: Comment on above: Expected: 09/17/2023 , Expires: 12/17/2023 Start: 09-16-2023 ANNUAL PCP TEAM POTASH FLAKER CAS DISEASE VISIT ANNUAL PCP TEAM CHRONIC DISEASE VISIT [facility] Start: 09-16-2023 BP CONTROLLED (<130/80) BP CONTROLLE D (<130/80) [facility] Start: 09-12-2023 BP CONTROLLED (<130/80) BP CONTROLLE D (<130/80) [facility] Start: 08-11-2023 ANNUAL PCP TEAM POTASH FLAKER CAS DISEASE VISIT ANNUAL PCP TEAM CHRONIC DISEASE VISIT [facility] Start: 08-11-2023 BP CONTROLLED (<130/80) BP CONTROLLE D (<130/80) [facility] Start: 08-02-2023 Patient discharge [facility] Start: 08-02-2023 End: 08-02-2023 Removal of urinary catheter [facility] Start: 08-02-2023 Oxygen therapy [facility] Start: 08-01-2023 Anes xtrprtl lower a bd ur tract renal don nfrct ANESTH KIDNEY/URETER SURG [facility] Start: 08-01-2023 Laparoscopy surg par tial nephrectomy LAPARO PARTIAL NEPHRECTOMY [facility] Start: 08-01-2023 Application of intermittent pneumatic compression device [facility] Start: 08-01-2023 Following clinical pathway protocol [facility] Start: 08-01-2023 Incentive spirometry [facility] Start: 08-01-2023 Admission procedure [facility] Start: 08-01-2023 Measuring intake and output [facility] Start: 08-01-2023 Patient education [facility] Start: 08-01-2023 Provision of activit y privileges [facility] Start: 08-01-2023 Taking patient vital signs [facility] Start: 08-01-2023 Vital signs measurements [facility] Start: 08-01-2023 End: 08-01-2023 [facility] Start: 08-01-2023 [facility] Start: 07-22-2023 Covid-19 Vaccine () Covid-19 Vaccine () [facility] Start: 06-04-2023 Advance Directive Discussion Advance Directive Discussion [facility] Start: 06-03-2023 ADVANCE DIRECTIVE DISCUSSION ADVANCE DIRECTIVE DISCUSSION [facility] Comment on above: Postponed from 06/04 (Declined at this time) Start: 05-29-2023 Patient discharge [facility] Start: 05-27-2023 [facility] Start: 05-26-2023 Chest PA and Lateral Chest PA and La teral [facility] Start: 05-26-2023 XR Chest PA and Lateral [facility] Start: 05-25-2023 [facility] Start: 05-25-2023 Respiratory secretio n precautions [facility] Start: 05-25-2023 Bacteria identified in Blood by Culture Blood Culture [facility] Start: 05-25-2023 Consultation [facility] Start: 05-25-2023 End: 05-25-2023 Following clinical pathway protocol [facility] Start: 05-25-2023 Bacterial nucleic ac id assay [facility] Start: 05-25-2023 Streptococcus pneumo niae antigen assay [facility] Start: 05-25-2023 End: 05-25-2023 Consultation [facility] Start: 05-25-2023 Elevation of head of bed [facility] Start: 05-25-2023 Patient education [facility] Start: 05-25-2023 Referral to service [facility] Start: 05-25-2023 End: 05-25-2023 [facility] Start: 05-25-2023 Admission procedure [facility] Start: 05-25-2023 Inhalation therapy procedure [facility] Start: 05-24-2023 End: 05-24-2023 Blood culture [facility] Start: 05-24-2023 [facility] Start: 03-04-2023 Screening for osteoporosis Bone Density Screening [facility] Start: 02-02-2023 Covid-19 Vaccine (2022- season) Covid-19 Vaccine ( season) [facility] Start: 02-02-2023 Influenza vaccination Influenza Vacc ine (#1) [facility] Start: 01-17-2023 Lipid 1996 panel - S connor or Plasma Lipid Screening [facility] Start: 01-17-2023 Lipid panel Lipid Screening [facility] Start: 01-17-2023 LIPID SCREEN LIPID SCREEN [facility] Start: 01-13-2023 BP CONTROLLED (<130/80) BP CONTROLLE D (<130/80) [facility] Start: 01-13-2023 Mammography MAMMOGRAM [facility] Start: 11-06-2022 End: 11-08-2023 Radiologic exam chest 2 views XR CHEST 2V FRONTAL/LAT Radiology Routine Bacterial pneumonia Expected: 11/06/2022, Expires: 11/08/2023 [facility] Work Phone: Comment on above: Expected: 11/06/2022 , Expires: 11/08/2023 Start: 09-11-2022 Covid-19 Vaccine (6 - Pfizer series) Covid-19 Vaccine (6 - Pfizer series) [facility] Start: 06-04-2022 ADVANCE DIRECTIVE DISCUSSION ADVANCE DIRECTIVE DISCUSSION [facility] Start: 06-04-2022 DEPRESSION ASSESSMENT DEPRESSION ASS ESSMENT [facility] Start: 04-21-2022 COVID-19 VACCINE (5 - Booster for Pfizer series) COVID-19 VACCINE (5 - Booster for Pfizer series) [facility] Start: 03-17-2022 Measurement of Borre maricruz burgdorferi antibody [facility] Work Phone: Start: 02-13-2022 COVID-19 VACCINE (5 - Booster for Pfizer series) COVID-19 VACCINE (5 - Booster for Pfizer series) [facility] Start: 02-02-2022 Influenza vaccination INFLUENZA (#1) [facility] Start: 10-15-2021 Adult depression screening assessment DEPRESSION SCREENING [facility] Start: 10-15-2021 ANNUAL PCP TEAM POTASH FLAKER CAS DISEASE VISIT ANNUAL PCP TEAM CHRONIC DISEASE VISIT [facility] Start: 06-04-2021 ADVANCE DIRECTIVE DISCUSSION ADVANCE DIRECTIVE DISCUSSION [facility] Start: 06-04-2021 DEPRESSION ASSESSMENT DEPRESSION ASS ESSMENT [facility] Start: 01-17-2021 DIABETES SCREEN DIABETES SCREEN [facility] Start: 01-17-2021 Diabetes Screening Diabetes Screenin g [facility] Start: 05-13-2020 PNEUMOCOCCAL: 65+ (2 - PPSV23 if available, else PCV20) PNEUMOCOCCAL: 65+ (2 - PPSV23 if available, else PCV20) [facility] Start: 05-13-2020 PNEUMOCOCCAL: 65+ (2 - PPSV23 or PCV20) PNEUMOCOCCAL: 65+ (2 - PPSV23 or PCV20) [facility] Start: 10-26-2019 Complete blood count Hemoglobin/Demetrius tocrit [facility] Start: 10-26-2019 HEMOGLOBIN/HEMATOCRIT HEMOGLOBIN/HEM ATOCRIT [facility] Start: 2019 BONE DENSITY BONE DENSITY [facility] Start: 12-07-2016 FECAL OCCULT BLOOD FECAL OCCULT BLOO D [facility] Start: 12-07-2016 Screening for malign ant neoplasm of colon Fecal Occult Blood [facility] Start: 05-17-2016 Creatinine measurement Serum Creatin ine [facility] Start: 05-17-2016 SERUM CREATININE SERUM CREATININE Cl [facility] Start: 2014 RSV Vaccine (1 - 1-d ose 60+ series) RSV Vaccine (1 - 1-dose 60+ series) [facility] Start: 2014 RSV Vaccine (1 - Ris k 60-74 years 1-dose series) RSV Vaccine (1 - Risk 60-74 years 1-dose series) [facility] Start: 02-26-2004 SHINGRIX VACCINE (1 of 2) SHINGRIX VACCINE (1 of 2) [facility] Start: 1999 COLOGUARD (FIT-DNA) COLOGUARD (FIT-D NA) [facility] Start: [address] COLONOGRAPHY [facility] Start: 1999 Screening for malign ant neoplasm of colon [facility] Start: 1999 SIGMOIDOSCOPY SIGMOIDOSCOPY [facility] Start: 1973 SHINGRIX VACCINE (1 of 2) SHINGRIX VACCINE (1 of 2) [facility] Start: 02-26-1972 Anxiety Screening Anxiety Screening [facility] Start: 02-26-1972 BP CONTROLLED (<130/80) BP CONTROLLE D (<130/80) [facility] Start: 02-26-1972 Depression Screening Depression Scre ening [facility] Start: 02-26-1972 HEPATITIS C SCREENING HEPATITIS C SC [facility] Start: 02-26-1972 Hepatitis C screening Hepatitis C [facility] Bacteria identified in Sputum by Respiratory culture [facility] End: 04-20-2025 DBT Breast - bilateral screening SUSHIL SCREENING W [facility] Radiology Routine Encounter for gynecological examination (general) (routine) without abnormal findings Encounter for screening mammogram for breast cancer 1 Occurrences starting 03/21/2024 until 04/20/2025 [facility] Work Phone: Comment on above: 1 Occurrences starti ng 03/21/2024 until 04/20/2025 End: 02-12-2023 Diagnostic mammography computer-aided detcj uni SUSHIL DIAGNOSTIC RT Radiology Routine Abnormal mammogram 1 Occurrences starting 01/13/2022 until 02/12/2023 [facility] Work Phone: Comment on above: 1 Occurrences starti ng 01/13/2022 until 02/12/2023 End: 08-11-2023 ECG COMPLETE ECG COMPLETE ECG Routine Medicare annual wellness visit, initial 1 Occurrences starting 08/10/2022 until 08/11/2023 [facility] Work Phone: Comment on above: 1 Occurrences starti ng 08/10/2022 until 08/11/2023 ECG COMPLETE ECG COMPLETE ECG 08/10/2022 5:14 PM EST [facility] Laboratory data interpretation [facility] Work Phone: Legionella pneumophi la Ag [Presence] in Urine [facility] End: 03-14-2024 SUSHIL DIAGNOSTIC RIGHT SUSHIL DIAGNOSTIC RIGHT Radiology Routine Abnormal mammogram 1 Occurrences starting 02/13/2023 until 03/14/2024 [facility] Work Phone: Comment on above: 1 Occurrences starti ng 02/13/2023 until 03/14/2024 Measurement of Borre maricruz burgdorferi antibody [facility] Work Phone: MG Breast Screening SUSHIL SCREENIN G Radiology Routine Encounter for screening mammogram for malignant neoplasm of breast 03/21/2024 8:42 AM EDT [facility] Work Phone: Patient Education ED Pneumonia (Adult) [facility] Work Phone: Patient referral [facility] Work Phone: End: 10-15-2023 Radiologic exam chest 2 views XR CHEST 2V FRONTAL/LAT Radiology Routine Bacterial pneumonia 1 Occurrences starting 09/15/2022 until 10/15/2023 [facility] Work Phone: Comment on above: 1 Occurrences starti ng 09/15/2022 until 10/15/2023 Respiratory pathogen s DNA and RNA panel - Respiratory specimen by EARLE with probe detection [facility] End: 02-12-2023 Screening mammography bi 2-view breast inc cad SUSHIL SCREENING Radiology Routine Encounter for screening mammogram for breast cancer 1 Occurrences starting 01/13/2022 until 02/12/2023 [facility] Work Phone: Comment on above: 1 Occurrences starti ng 01/13/2022 until 02/12/2023 End: 03-14-2024 US BREAST LTD RIGHT US BREAST LTD RIGHT Radiology Routine Abnormal mammogram 1 Occurrences starting 02/13/2023 until 03/14/2024 [facility] Work Phone: Comment on above: 1 Occurrences starti ng 02/13/2023 until 03/14/2024 End: 02-12-2023 Us breast uni real time with image limited US BREAST LTD RT Radiology Routine Abnormal mammogram 1 Occurrences starting 01/13/2022 until 02/12/2023 [facility] Work Phone: Comment on above: 1 Occurrences starti ng 01/13/2022 until 02/12/2023 [facility] Immunizations Immunization Date Immunization Notes Care Provider Karol coffman 03-14-2024 COVID-19 vaccine, ag e 12+ yr (PFIZER-BIONTECH COMIRNATY) Vinny Briones MD Work Phone: [facility] 03-14-2024 influenza, high dose seasonal, preservative-free Vinny Briones MD Work Phone: [facility] 03-21-2023 influenza (aIIV4) vaccine, age 65+ yr, quadrivalent, PF (FLUAD QUAD) Vinny Briones MD Work Phone: [facility] 03-21-2023 influenza virus vacc ine, unspecified formulation Batsheva Hassan [facility] 03-18-2023 influenza, injectabl e, quadrivalent, preservative free [facility] 03-20-2022 influenza (HD-IIV4) vaccine, age 65+ yr, high dose, quadrivalent, PF (FLUZONE HIGH-DOSE) Vinny Briones MD Work Phone: [facility] 03-20-2022 influenza virus vacc ine, unspecified formulation Mindi Thomas MANAGER PARTY.HAND WOOD SANDER Work Phone: [facility] 12-03-2021 zoster vaccine recombinant Vinny Briones MD Work Phone: [facility] 08-20-2021 zoster vaccine recombinant Vinny Briones MD Work Phone: [facility] 03-05-2021 influenza (HD-IIV4) vaccine, age 65+ yr, high dose, quadrivalent, PF (FLUZONE HIGH-DOSE) Vinny Briones MD Work Phone: [facility] 08-26-2020 Covid (Pfizer) [facility] 08-05-2020 Covid (Pfizer) [facility] 05-31-2020 pneumococcal polysaccharide vaccine, 23 valent Vinny Briones MD Work Phone: [facility] 05-23-2020 pneumococcal polysaccharide vaccine, 23 valent Pedrito Mcdaniel APRN.HAND WOOD SANDER Work Phone: [facility] Work Phone: 03-11-2020 influenza, injectabl e, quadrivalent, contains preservative Vinny Briones MD Work Phone: [facility] 03-05-2020 influenza (aIIV4) vaccine, age 65+ yr, quadrivalent, PF (FLUAD QUAD) Vinny Briones MD Work Phone: [facility] 05-13-2019 pneumococcal conjuga te vaccine, 13 valent Mindi Scio MANAGER PARTY.HAND WOOD SANDER Work Phone: [facility] 03-18-2019 influenza, high dose seasonal, preservative-free Mindi Scio MANAGER PARTY.HAND WOOD SANDER Work Phone: [facility] 03-18-2019 Seasonal trivalent influenza vaccine, adjuvanted, preservative free Vinny Briones MD Work Phone: [facility] 04-04-2018 influenza, injectabl e, quadrivalent, contains preservative Mindi Scio MANAGER PARTY.HAND WOOD SANDER Work Phone: [facility] 03-12-2018 influenza, injectabl e, quadrivalent, preservative free Vinny Briones MD Work Phone: [facility] 03-04-2018 influenza virus vacc ine, unspecified formulation Vinny Briones MD Work Phone: [facility] 04-04-2017 influenza virus vacc ine, unspecified formulation Vinny Briones MD Work Phone: [facility] 03-26-2016 influenza, injectabl e, quadrivalent, contains preservative Vinny Briones MD Work Phone: [facility] 03-26-2016 influenza, injectabl e, quadrivalent, preservative free Mindi Scio MANAGER PARTY.HAND WOOD SANDER Work Phone: [facility] Work Phone: 03-20-2015 influenza, injectabl e, quadrivalent, preservative free Mindi Scio MANAGER PARTY.HAND WOOD SANDER Work Phone: [facility] 03-18-2015 influenza, injectabl e, quadrivalent, preservative free Vinny Briones MD Work Phone: [facility] 12-31-2013 tetanus toxoid, redu leticia diphtheria toxoid, and acellular pertussis vaccine, adsorbed Mindi William MANAGER PARTY.HAND WOOD SANDER Work Phone: [facility] 03-23-2010 influenza virus vacc ine, unspecified formulation Mindi William MANAGER PARTY.HAND WOOD SANDER Work Phone: [facility] Work Phone: 05-17-2009 novel influenza-H1N1 -09, all formulations Mindi Scio MANAGER PARTY.HAND WOOD SANDER Work Phone: [facility] Work Phone: 04-21-2006 influenza virus vacc ine, unspecified formulation Mindi William MANAGER PARTY.HAND WOOD SANDER Work Phone: [facility] Work Phone: 03-04-2004 influenza virus vacc ine, whole virus Mindi William MANAGER PARTY.HAND WOOD SANDER Work Phone: [facility] Work Phone: 02-14-2003 diphtheria and tetan us toxoids, adsorbed for pediatric use Mindi Scio MANAGER PARTY.HAND WOOD SANDER Work Phone: [facility] Work Phone: Payers Date Payer Category Payer Self-pay [id number] 2019 Medicare MEDICARE MEDICAR E A AND B [id number] 2019-Present [phone] [address] [address] [place] [address] Medicare [id number] 2019 Unknown MMO MMO MEDICARE SUPPLEMENT [id number] 2019-Present [phone] [address] [place] [address] Indemnity [id number] 2019 Medicare [id number] 2014 Unknown [id number] Unknown [id number] Unknown [id number] Unknown [id number] Social History Date Type Detail Facility Start: 12-04-2018 End: 07-23-2023 Tobacco smoking status GAIS Unknown if ever smoked [facility] Start: 12-04-2018 Non-smoker [facility] Start: 1955 Sex Assigned At Female C [facility] Start: 03-30-2011 Tobacco smoking stat us GAIS Never smoked tobacco [facility] Start: 03-30-2011 Tobacco use and exposure Smoke less tobacco non-user [facility] Start: 01-13-2022 End: 05-22-2023 Alcohol intake Current non-drinker of alcohol (finding) [facility] Start: 01-01-2020 End: 08-03-2022 History SDOH Social Connections Phone [address] [facility] Start: 01-01-2020 End: 08-03-2022 History SDOH Social Connections Evangelical [address] [facility] Start: 01-01-2020 End: 08-03-2022 History SDOH Social Connections Membership [address] [facility] Start: 01-01-2020 End: 08-03-2022 History SDOH Social Connections Living [address] [facility] Start: 01-01-2020 History SDOH Physica l Activity MPS [address] [facility] Start: 01-01-2020 End: 08-03-2022 History SDOH Transport Med [address] [facility] Start: 01-01-2020 Education [address] [facility] Start: 01-03-2022 End: 01-17-2022 Exposure to SARS-CoV-2 (event) Not sure [facility] Work Phone: Start: 08-03-2022 History SDOH Alcohol Std Drinks [address] [facility] Start: 08-03-2022 End: 10-09-2022 History of Social function [facility] Start: 08-03-2022 End: 10-09-2022 Social connection and isolation panel [facility] Do you belong to any clubs or organizations such as adventist groups, unions, fraternal or athletic groups, or school groups? Yes [facility] Are you now , , , , never or living with a partner? [facility] How often to you hav e a drink containing alcohol? Never [facility] How many standard dr inks containing alcohol do you have on a typical day? Patient does not drink [facility] Do you feel stress - tense, restless, nervous, or anxious, or unable to sleep at night because your mind is troubled all the time - these days [OSQ] Not at all [facility] (I/We) worried wheth er (my/our) food would run out before (I/we) got money to buy more. Never true [facility] In the past 12 month s, was there a time when you were not able to pay the mortgage or rent on time? No [facility] Start: 10-10-2020 Gender identity Identifies as female gender (finding) [facility] NEGATED: Highlighted row [facility] Medical Equipment Procedure Code Equipment Code Equipment Origin al Text Equipment Identifier Dates Robot-assisted partial nephrectomy Collagen haemostatic agent, non-antimicrobial [id number] FDA Start: 08-01-2023 Robot-assisted partial nephrectomy Suture clasp, bioabsorbable [id number] FDA Start: 08-01-2023 Robot-assisted partial nephrectomy Plant polysaccharide haemostatic agent, bioabsorbable [id number] FDA Start: 08-01-2023 Robot-assisted partial nephrectomy Ligation clip, synthetic polymer, non-bioabsorbable ()[id number] FDA Start: 08-01-2023 Robot-assisted partial nephrectomy Ligation clip, synthetic polymer, non-bioabsorbable ()[id number] FDA Start: 08-01-2023 Robot-assisted partial nephrectomy Ligation clip, synthetic polymer, non-bioabsorbable ()[id number] FDA Start: 08-01-2023 TUBE, EAR PARASOL.040 FDA Sta rt: 09-27-2017 TUBE,EAR T-TUBE FDA Start: 12-12-2018 TUBE,EAR T-TUBE FDA Start: 12-12-2018 TUBE, EAR PARASOL.040 FDA Sta rt: 09-27-2017 TUBE,EAR T-TUBE FDA Start: 12-12-2018 TUBE,EAR T-TUBE FDA Start: 12-12-2018 TUBE, EAR PARASOL.040 FDA Sta rt: 09-27-2017 TUBE,EAR T-TUBE FDA Start: 12-12-2018 TUBE,EAR T-TUBE FDA Start: 12-12-2018 TUBE, EAR PARASOL.040 FDA Sta rt: 09-27-2017 TUBE,EAR T-TUBE FDA Start: 12-12-2018 TUBE,EAR T-TUBE FDA Start: 12-12-2018 TUBE, EAR PARASOL.040 FDA Sta rt: 09-27-2017 TUBE,EAR T-TUBE FDA Start: 12-12-2018 TUBE,EAR T-TUBE FDA Start: 12-12-2018 TUBE, EAR PARASOL.040 FDA Sta rt: 09-27-2017 TUBE,EAR T-TUBE FDA Start: 12-12-2018 TUBE,EAR T-TUBE FDA Start: 12-12-2018 TUBE, EAR PARASOL.040 FDA Sta rt: 09-27-2017 TUBE,EAR T-TUBE FDA Start: 12-12-2018 TUBE,EAR T-TUBE FDA Start: 12-12-2018 Goals Date Patient Goal Desired Activity /State Functional Status Date Assessment Result Facility 08-02-2023 Functional status Chair [facility] Work Phone: 05-29-2023 Functional status Up ad tony [facility] Work Phone: Mental Status Date Assessment Result Facility 08-02-2023 Cognitive function Level Of Cons ciousness Awake;Alert;Appropriate;Follow s Commands [facility] Work Phone: 08-01-2023 Cognitive function Voice/Name [facility] Work Phone: 05-29-2023 Cognitive function Voice/Name [facility] Work Phone: Clinical Notes 01-27-2021 to 03-21-2024 Simi Steiner RT(R) - 03/21/2024 8:30 AM EDTMMindi lennon APRN.REBECCA - 03/21/2024 8:22 AM EDTTelephone Encounter - Radha Hanks RN - 03/15/2024 8:52 AM EDTPatient Instructions Note Date & Type Note Facility 03-21-2024 History of Presen t illness Narrative Radiology Service Progress Note PATIENT NAME: Richelle Cardozo DATE OF SERVICE: March 21, 2024 TIME: 9:24 AM PATIENT IDENTITY VERIFICATION COMPLETED USING TWO (2) IDENTIFIERS: Name and Date of confirmed by patient verbally. FALL SCREENING: Has the patient had 2 falls in the last year or 1 fall with injury or currently using an Ambulatory Assistive Device (Walker, Cane, Wheelchair, Crutches, etc.)? No PATIENT GENDER DATA: Female. status: : No status: NO. PATIENT RELEVANT IMPLANT DATA REVIEWED: Not Applicable PATIENT PRESENTS WITH AN IMPLANTABLE OR ATTACHED TOWER EXCAVATOR OPERATOR: No RADIOLOGY DEPARTMENT: Mammography PERIPHERAL IV DATA: Not applicable SIGNED BY: RT Lucien(Jennie) March 21, 2024 9:24 AM documented in this encounter [facility] 03-21-2024 Note HNO ID: [id number] Author: SIMI STEINER RT(Jennie) Service: ? Author Type: Technologist Type: Progress Notes Filed: 03/21/2024 09:25 Note Text: Radiology Service Progress Note PATIENT NAME: Richelle Cardozo DATE OF SERVICE: March 21, 2024 TIME: 9:24 AM PATIENT IDENTITY VERIFICATION COMPLETED USING TWO (2) IDENTIFIERS: Name and Date of confirmed by patient verbally. FALL SCREENING: Has the patient had 2 falls in the last year or 1 fall with injury or currently using an Ambulatory Assistive Device (Walker, Cane, Wheelchair, Crutches, etc.)? No PATIENT GENDER DATA: Female. status: : No status: NO. PATIENT RELEVANT IMPLANT DATA REVIEWED: Not Applicable PATIENT PRESENTS WITH AN IMPLANTABLE OR ATTACHED TOWER EXCAVATOR OPERATOR: No RADIOLOGY DEPARTMENT: Mammography PERIPHERAL IV DATA: Not applicable SIGNED BY: RT Lucien(R) March 21, 2024 9:24 AM [facility] 03-21-2024 Note HNO ID: [id number] Author: MINDI THOMAS APRN.HAND WOOD SANDER Service: ? Author Type: Nurse Practitioner Type: Progress Notes Filed: 03/21/2024 09:18 Note Text: Patient declined farmworkersChely Shin is a 69 year old who presents for an annual gynecologic exam without complaints. Postmenopausal: Yes HRT use: No. 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 Celiac disease CKD (chronic kidney disease) stage 3, GFR 30-59 ml/min ([facility]) 2013 Diverticulosis of colon 08/04/2005 Duodenitis without mention of hemorrhage 04/12/2010 Encounter for Medicare annual wellness exam 01/30/2018 last done: 01/30/2018 Epidermal inclusion cyst 09/03/2017 Removed right knee 08/2017 Essential hypertension 07/30/2017 Family history of malignant neoplasm of gastrointestinal tract 01/07/2015 GERD (gastroesophageal reflux disease) 11/10/2014 GRANULOMA ANNULARE///ERYTHEMATOUS COND NEC 09/11/2008 History of DVT (deep vein thrombosis) 06/17/2009 First and only one was in lower extremity around 2006 History of shingles 10/15/202009/2020 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 Meehan Metabolic acidosis 11/20/2023 Chronic; on bicarb per renal (Dr. Raygoza), suspect due to RTA from Sjogrens Mixed hyperlipidemia 07/30/2017 Personal history of colonic [...] TUBE ABDL/VAG APPR UNI/BI 1989 Tubal ligation NEPHRECTOMY PARTIAL Right 08/01/2023 malignant neoplasm, per Dr. Meehan PAST SURGICAL HISTORY OF 04/2013 Tubes placed [...] Never Smokeless tobacco: Never Vaping Use Vaping status: Never Used Substance Use Topics Alcohol use: No Drug use: No REVIEW OF SYSTEMS Abdomen: No abdominal pain, nausea, vomiting, diarrhea, or constipation. No bloating, early satiety, indigestion, or increased flatulence. Bladder: No dysuria, gross hematuria, urinary frequency, urinary urgency, or incontinence Breast: No breast lumps, nipple d/c, overlying skin changes, redness or skin retraction Allergies and current medication updated:Yes SENSITIVE EXAM: The sensitive examination was discussed with the Patient or Patient's Authorized Software Systems Architect. As applicable, any other physici (more content not included)... [facility] 03-21-2024 History of Presen t illness Narrative Patient declined farmworkers. Aleida is a 69 year old who presents for an annual gynecologic exam without complaints. Postmenopausal: Yes HRT use: No. 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 Celiac disease CKD (chronic kidney disease) stage 3, GFR 30-59 ml/min ([facility]) 2013 Diverticulosis of colon 08/04/2005 Duodenitis without mention of hemorrhage 04/12/2010 Encounter for Medicare annual wellness exam 01/30/2018 last done: 01/30/2018 Epidermal inclusion cyst 09/03/2017 Removed right knee 08/2017 Essential hypertension 07/30/2017 Family history of malignant neoplasm of gastrointestinal tract 01/07/2015 GERD (gastroesophageal reflux disease) 11/10/2014 GRANULOMA ANNULARE///ERYTHEMATOUS COND NEC 09/11/2008 History of DVT (deep vein thrombosis) 06/17/2009 First and only one was in lower extremity around 2006 History of shingles 10/15/202009/2020 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 Meehan Metabolic acidosis 11/20/2023 Chronic; on bicarb per renal (Dr. Raygoza), suspect due to RTA from Sjogrens Mixed hyperlipidemia 07/30/2017 Personal history of colonic [...] TUBE ABDL/VAG APPR UNI/BI 1989 Tubal ligation NEPHRECTOMY PARTIAL Right 08/01/2023 malignant neoplasm, per Dr. Meehan PAST SURGICAL HISTORY OF 04/2013 Tubes placed [...] Never Smokeless tobacco: Never Vaping Use Vaping status: Never Used Substance Use Topics Alcohol use: No Drug use: No REVIEW OF SYSTEMS Abdomen: No abdominal pain, nausea, vomiting, diarrhea, or constipation. No bloating, early satiety, indigestion, or increased flatulence. Bladder: No dysuria, gross hematuria, urinary frequency, urinary urgency, or incontinence Breast: No breast lumps, nipple d/c, overlying skin changes, redness or skin retraction Allergies and current medication updated:Yes SENSITIVE EXAM: The sensitive examination was discussed with the Patient or Patient's Authorized Software Systems Architect. As applicable, any other physician, advance practice provider, medical student, or other health professional student that will be observing or involved in the sensitive examination for educational or training purposes was discussed with the Patient or Authorized Software Systems Architect. The Patient or Authorized Software Systems Architect has agreed to proceed with the sensitive examination. (Sensitive examination includes inspection and/or palpation of the breasts, pelvis, prostate and anorectal regions). EXAM: There were no vitals taken for this visit. GENERAL: pleasant, female in no apparent distress [...] external genitalia normal, normal Bartholin's glands, urethra, [place]'s glands, no vulvar lesions, no cervical lesions, physiologic discharge present, normal appearing perineal body and perianal region BIMANUAL: uterus normal size, shape and consistency, no adnexal masses, and non-tender RECTOVAGINAL: deferred. NEURO: alert and oriented x3,exam grossly non-focal EXTREMITIES: normal ASSESSMENT/PLAN: 1) Health maintenance: Pap/HPV screening no longer needed Mammogram ordered Mammogram up to date Nutrition, exercise and routine health maintenance exams reviewed. Calcium/Vitamin D supplementation information provided. Colon cancer screening: up to date with screening BMD: 2022 follow up by rheumatology 2) Follow up one year or sooner as needed Mindi Thomas APRN.REBECCA documented in this encounter [facility] 03-15-2024 Telephone encounter Note Patient calls and notified of results and providers instructions. Patient verbalizes understanding and thankful for the good news. Radha Hanks RN [facility] 03-15-2024 Miscellaneous Notes Patient calls and notified of results and providers instructions. Patient verbalizes understanding and thankful for the good news. Radha Hanks RN Let patient know her anemia is stable and better then several years ago. Her kidney functions are much better then several years ago. Her lipid panel and UA were good documented in this encounter [facility] 03-15-2024 Telephone encounter Note Let patient know her anemia is stable and better then several years ago. Her kidney functions are much better then several years ago. Her lipid panel and UA were good [facility] 03-14-2024 History of Presen t illness Narrative Images from the original note were not included. Richelle Cardozo is a 69 year old female here for a Medicare wellness visit. Medicare Health Risk Assessment General Health Good Exercise: Minutes/Day 10 min Exercise: Days/Week 2 days Alcohol: Daily Use Never Alcohol: Drinks/Day Patient does not drink Alcohol: 6 or more drinks Never Feel off balance no Concerns: Teeth/Dentures no Concerns: Sexual function NA Troubled by feelings no Frequency: Eating healthy diet daily ADLs requiring help none Safety precautions in home/vehicle Wears seat belts, no loose rugs, has stair rails, no grab bars Smoke, vape, chews tobacco never Difficulty hearing no Difficulty seeing Wearing glasses Current Providers Specialists: I have reviewed specialist-related care of the patient in the medical record. Current care team: Patient Care Team: Vinny Briones MD as PCP - General (Family Medicine) Dr. Meehan: Urology Optho Dr. Raygoza: renal Rheum Medical/Family history review Reviewed and updated problem list, medical/surgical/family/social history, medications, and allergies. Opioid use review Opioid Medications (last 90 days) No data to display Anxiety/Depression screening PHQ-9 Score: 0 . SONJA-7 Score: 0 . Recommendation: no further intervention at this time Cognitive screening Cognitive screening reviewed and No further action needed (score 3-5). Functional Observation Was the patient's Timed Up & Go test unsteady or >= 12 seconds? No Advance Care Planning Patient did not wish or was not able to name a surrogate decision maker or provide an advance care plan Measurements BP 105/70 Pulse 76 Ht 165.7 cm (5' 5.25) Wt 64.6 kg (142 lb 6.4 oz) BMI 23.52 kg/m Vision Screening: Follows with optometry/ophthalmology Assessment/Plan Medicare annual wellness visit, subsequent (Z00.00) - Counseled on healthy diet and regular exercise - Fall avoidance information provided - Personalized prevention plan provided See below Chief Complaint Patient presents with: 6 Month Exam HPI Richelle Cardozo is a 69 year old female who presents here today for 6 month follow up. Patient sees Urology last visit 12/2023 Patient sees Cardiology last visit 12/2023. Patient sees nephrology - Dr. Raygoza Last visit 11/2023 Patient's last Medicare wellness 08/2022. Patient has been doing ok. No issues o concerns. Past medical history, appointments, medications, allergies reviewed. [...] kidney disease) stage 3, GFR 30-59 ml/min ([facility]) 2013 Diverticulosis of colon 08/04/2005 Duodenitis without mention of hemorrhage 04/12/2010 Epidermal inclusion cyst 09/03/2017 Removed right knee 08/2017 Essential hypertension 07/30/2017 Family history of malignant neoplasm of gastrointestinal tract 01/07/2015 GERD (gastroesophageal reflux disease) 11/10/2014 GRANULOMA ANNULARE///ERYTHEMATOUS COND NEC 09/11/2008 History of DVT (deep vein thrombosis) 06/17/2009 First and only one was in lower extremity around 2006 History of shingles 10/15/202009/2020 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 Meehan Metabolic acidosis 11/20/2023 Chronic; on bicarb per renal (Dr. Raygoza), suspect due to RTA from Sjogrens Mixed hyperlipidemia 07/30/2017 Personal history of colonic [...] TUBE ABDL/VAG APPR UNI/BI 1989 Tubal ligation NEPHRECTOMY PARTIAL Right 08/01/2023 malignant neoplasm, per Dr. Meehan PAST SURGICAL HISTORY OF 04/2013 Tubes placed [...] on File Prior to Visit Medication Sig benzonatate (TESSALON PERLES) 100 mg capsule Take 1 capsule by mouth three times a day as needed for cough. metoprolol tartrate, short acting, (LOPRESSOR) 25 mg tablet Take 1 tablet by mouth every 12 hours. ondansetron orally disintegrating (ZOFRAN ODT) 4 mg disintegrating tablet Take 1 tablet by mouth every 12 hours as needed for nausea/vomiting. L.acidophil/L.plantar/Bifido 7 [...] Never Smokeless tobacco: Never Vaping Use Vaping status: Never Used Substance Use Topics Alcohol use: No Drug use: No Review of Symptoms REVIEW OF SYSTEMS GENERAL: No weight loss, malaise or fevers HEENT: Negative for frequent or significant headaches, No changes in hearing or vision, no nose bleeds or . Has qamar having green nasal discharge. NECK: Negative for lumps, goiter, pain and significant neck swelling RESPIRATORY: Negative for hemoptysis, wheezing, COPD, dyspnea or shortness of breath. Has a moist cough and not able to bring up any mucus. CARDIOVASCULAR: Negative for chest pain, leg swelling, hypertension, CHF or palpitations GI: No nausea, vomiting, or diarrhea, No heartburn or reflux symptoms, and no blood : No history of dysuria, frequency or blood. MUSCULOSKELETAL: Negative for new or changes in her typical joint pain or swelling, back pain or muscle pain SKIN: Negative for lesions, rash, and itching PSYCH: Negative for sleep disturbance, mood disorder and recent psychosocial stressors HEMATOLOGY/LYMPHOLOGY: Negative for prolonged bleeding, bruising easily or swollen nodes ENDOCRINE: Negative for cold or heat intolerance, polyuria, polydipsia and goiter NEURO: No history of headaches, syncope, paralysis, seizures or tremors EXAM: BP 105/70 Pulse 76 Ht 165.7 cm (5' 5.25) Wt 64.6 kg (142 lb 6.4 oz) BMI 23.52 kg/m Last 6 Encounter Wt Readings: Date: Wt: 03/14/2024 64.6 kg (142 lb 6.4 oz) 01/05/2024 62.9 kg (138 lb 10.7 oz) 09/07/2023 59.9 kg (132 lb) 06/05/2023 60.8 kg (134 lb) 05/22/2023 64.4 kg (142 lb) 2023 67.5 kg (148 lb 12.8 oz) General Appearance: Well appearing, alert, in no acute distress, well-hydrated, well nourished.. Skin: Skin color, texture, turgor normal, no suspicious rashes or lesions. Head: Normocephalic, no masses, lesions, tenderness or abnormalities. Eyes: Anicteric sclera. Pupils are equally round and reactive to light. Extraocular movements are intact. . Ears: External ears, TM's normal, canals clear. Nose/Sinuses: Nares normal, septum midline, mucosa normal, no drainage or sinus tenderness. Oropharynx: Lips, mucosa, and tongue normal, teeth and gums normal, oropharynx normal. Neck: Supple, no adenopathy; thyroid symmetric, normal size, no bruits. Lungs: Initially some crackles in the bases and cleared with coughing except slightly faint crackles on the right. . No rhonchi, rales. Soft end inspiratory wheeze bilaterally. Heart: RRR without murmur, gallop, or rubs. No ectopy. Abdomen: Normal abdominal exam, Abdomen soft, non-tender. Bowel sounds normal. No masses, organomegaly. Extremities: No deformities, edema, skin discoloration, Good capillary refill. . Musculoskeletal: Muscular strength intact, No joint swelling, deformity, or tenderness. Peripheral Pulses: Normal. Neurologic: Gait normal. Reflexes normal and symmetric. Sensation to light touch and crainal nerves 2-12 intact.. Health Maintenance List Depression Screening Never done Anxiety Screening Never done Hepatitis C Screening Never done RSV Vaccine(1 - Risk 60-74 years 1-dose series) Never done Serum Creatinine due on 05/17/2016 Diabetes Screening due on 01/17/2021 Lipid Screening due on 01/17/2023 Advance Directive Discussion Never done DTaP,Tdap,Td Vaccine(3 - Td or Tdap) due on 01/01/2024 Influenza Vaccine(1) due on 02/03/2024 Covid-19 Vaccine( - season) due on 02/03/2024 Mammogram Screening due on 02/10/2024 Annual PCP Team Chronic Disease Visit due on 09/06/2024 BP Controlled (<130/80) due on 01/04/2025 Colorectal Cancer Screening due on 01/27/2026 Bone Density Screening Completed Pneumococcal Vaccine: 65+ Completed HPV Vaccine Aged Out Shingrix Vaccine Discontinued Data reviewed A/P ASSESSMENT/PLAN: 1. Encounter for Medicare annual wellness exam - ICD9: V70.0, ICD10: Z00.00 (primary diagnosis) - Counseled on healthy diet and regular exercise - Patient counseled on and acknowledged vaccine benefits/risks/side effects; VIS provided: COVID-19 and Influenza - Follow up for annual exam in one year - advised on Tdap and RSV. 2. Essential hypertension - ICD9: 401.9, ICD10: I10 - Controlled - Continue current medications - Recommend home blood pressure monitoring, to bring results to next visit - Encouraged sodium restriction, DASH or Mediterranean diet - Recommend regular aerobic exercise - COMPREHENSIVE METABOLIC PANEL - URINALYSIS, WITH MICROSCOPIC - LIPID PANEL, NONFASTING 3. Mixed hyperlipidemia - ICD9: 272.2, ICD10: E78.2 - Control undetermined, due for labs - Counseled on healthy diet and regular exercise - COMPREHENSIVE METABOLIC PANEL - URINALYSIS, WITH MICROSCOPIC - LIPID PANEL, NONFASTING 4. Stage 3a chronic kidney disease (HCC) - ICD9: 585.3, ICD10: N18.31 - await labs - Follow up with kidney medicine - COMPREHENSIVE METABOLIC PANEL - COMPLETE BLOOD COUNT AND DIFFERENTIAL 5. Anemia of chronic disease - ICD9: 285.29, ICD10: D63.8 Check - COMPLETE BLOOD COUNT AND DIFFERENTIAL 6. Sjogren's syndrome, with unspecified organ involvement (HCC) - ICD9: 710.2, ICD10: M35.00 - on meds and managed per Rheum 7. Malignant neoplasm of right kidney, except renal pelvis (HCC) - ICD9: 189.0, ICD10: C64.1 - follows with urology 8. Advance directive discussed with patient - ICD9: V65.49, ICD10: Z71.89 - packets given 9. Screening for depression - ICD9: V79.0, ICD10: Z13.31 - DEPRESSION SCREENING 10. Encounter for screening examination for other mental health and behavioral disorders - ICD9: V79.8, ICD10: Z13.39 - ANXIETY SCREENING 11. Need for vaccination - ICD9: V05.9, ICD10: Z23 - INFLUENZA VACCINE, PRSV FREE, AGE 65+ YR, HIGH DOSE, TRIVALENT (FLUZONE HIGH-DOSE): given - [employer] COVID-19 VACCINE AGE 12+ YR (COMIRNATY): given 12. Upper respiratory tract infection, unspecified type - ICD9: 465.9, ICD10: J06.9 - Discussed viral etiology and rationale for treatment. - Symptomatic treatment with prn analgesia - Supportive care with fluids and rest - placed on a Z-Negrito due to reduced immune system with he RA Tx. 13. Encounter for screening for diabetes mellitus - ICD9: V77.1, ICD10: Z13.1 - check CMP 14. Medication management - ICD9: V58.69, ICD10: Z79.899 - check CBC Requested Prescriptions Signed Prescriptions Disp Refills azithromycin (ZITHROMAX Z-NEGRITO) 250 mg tablet 6 tablet 0 Sig: Take 2 tablets day one, then, 1 tablet daily until gone. F/u in a year for extensive. I spent a total of 40 minutes on the date of the service which included preparing to see the patient, [id number] patient care, completing clinical documentation, performing a medically appropriate examination, counseling and educating the patient/family/caregiver and ordering medications, tests, or procedures. Vinny Briones MD documented in this encounter [facility] 03-14-2024 Note HNO ID: [id number] Author: VINNY BRIONES MD Service: ? Author Type: Physician Type: Progress Notes Filed: 03/14/2024 14:00 Note Text: Richelle Cardozo is a 69 year old female here for a Medicare wellness visit. Medicare Health Risk Assessment General Health Good Exercise: Minutes/Day 10 min Exercise: Days/Week 2 days Alcohol: Daily Use Never Alcohol: Drinks/Day Patient does not drink Alcohol: 6 or more drinks Never Feel off balance no Concerns: Teeth/Dentures no Concerns: Sexual function NA Troubled by feelings no Frequency: Eating healthy diet daily ADLs requiring help none Safety precautions in home/vehicle Wears seat belts, no loose rugs, has stair rails, no grab bars Smoke, vape, chews tobacco never Difficulty hearing no Difficulty seeing Wearing glasses Current Providers Specialists: I have reviewed specialist-related care of the patient in the medical record. Current care team: Patient Care Team: Vinny Briones MD as PCP - General (Family Medicine) Dr. Meehan: Urology Optho Dr. Raygoza: renal Rheum Medical/Family history review Reviewed and updated problem list, medical/surgical/family/social history, medications, and allergies. Opioid use review Opioid Medications (last 90 days) No data to display Anxiety/Depression screening PHQ-9 Score: 0 . SONJA-7 Score: 0 . Recommendation: no further intervention at this time Cognitive screening Cognitive screening reviewed and No further action needed (score 3-5). Functional Observation Was the patient's Timed Up AND Go test unsteady or >= 12 seconds? No Advance Care Planning Patient did not wish or was not able to name a surrogate decision maker or provide an advance care plan Measurements BP 105/70 Pulse 76 Ht 165.7 cm (5' 5.25) Wt 64.6 kg (142 lb 6.4 oz) BMI 23.52 kg/m? Vision Screening: Follows with optometry/ophthalmology Assessment/Plan Medicare annual wellness visit, subsequent (Z00.00) - Counseled on healthy diet and regular exercise - Fall avoidance information provided - Personalized prevention plan provided See below Chief Complaint Patient presents with: 6 Month Exam HPI Richelle Cardozo is a 69 year old female who presents here today for 6 month follow up. Patient sees Urology last visit 12/2023 Patient sees Cardiology last visit 12/2023. Patient sees nephrology - Dr. Raygoza Last visit 11/2023 Patient's last Medicare wellness 08/2022. Patient has been doing ok. No issues o concerns. Past medical history, appointments, medications, allergies reviewed. [...] kidney disease) stage 3, GFR 30-59 ml/min ([facility]) 2014 Diverticulosis of colon 08/04/2005 Duodenitis without mention of hemorrhage 04/12/2010 Epidermal inclusion cyst 09/03/2017 Removed right knee 08/2017 Essential hypertension 07/30/2017 Family history of malignant neoplasm of gastrointestinal tract 01/07/2015 GERD (gastroesophageal reflux disease) 11/10/2014 GRANULOMA ANNULARE///ERYTHEMATOUS COND NEC 09/11/2008 History of DVT (deep vein thrombosis) 06/17/2009 First and only one was in lower extremity around 2006 History of shingles 10/15/202009/2020 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 Meehan Metabolic acidosis 11/20/2023 Chronic; on bicarb per renal (Dr. Raygoza), suspect due to RTA from Sjogrens Mixed hyperlipidemia 07/30/2017 Personal history of colonic [...] DILAT SPX ESOPHAGOGASTRODUODENOSCOPY TRANSORAL DIAGNOSTIC 04/12/2010 EGD L (more content not included)... [facility] 03-14-2024 Instructions Vinny Briones MD - 03/14/2024 1:19 PM EDT Consider getting the RSV and Tdap for tetanus vaccine from a local pharmacy Screening schedule The following prevention plan is recommended: Depression Screening Never done Anxiety Screening Never done Hepatitis C Screening Never done RSV Vaccine(1 - Risk 60-74 years 1-dose series) Never done Serum Creatinine due on 05/17/2016 Diabetes Screening due on 01/17/2021 Lipid Screening due on 01/17/2023 Advance Directive Discussion Never done DTaP,Tdap,Td Vaccine(3 - Td or Tdap) due on 01/01/2024 Influenza Vaccine(1) due on 02/03/2024 Covid-19 Vaccine( season) due on 02/03/2024 Mammogram Screening due on 02/10/2024 WHAT YOU CAN DO TO PREVENT FALLS Many falls can be prevented. By making some changes, you can lower your chances of falling. Four things YOU can do to prevent falls for you* and your caregiver 1. Begin a regular exercise program Exercise is one of the most important ways to lower your chances of falling. It makes you stronger and helps you feel better. Exercises that improve balance and coordination (like Richard Chi) are the most helpful. Lack of exercise leads to weakness and increases your chances of falling. Ask your doctor or health care provider about the best type of exercise program for you. 2. Have your health care provider review your medicines Have your doctor or pharmacist review all the medicines you take, even [id number] medicines. As you get older, the way medicines work in your body can change. Some medicines, or combinations of medicines, can make you sleepy or dizzy and can cause you to fall. 3. Have your vision checked Have your eyes checked by an eye doctor at least once a year. You may be wearing the wrong glasses or have a condition like glaucoma or cataracts that limits your vision. Poor vision can increase your chances of falling. 4. Make your home safer About half of all falls happen at home. To make your home safer: Remove things you can trip over (like papers, books, clothes, and shoes) from stairs and places where you walk. Remove small throw rugs or use double-sided tape to keep the rugs from slipping. Keep items you use often in cabinets you can reach easily without using a step stool. Have grab bars put in next to your toilet and in the tub or shower. Use non-slip mats in the bathtub and on shower floors. Improve the lighting in your home. As you get older, you need brighter lights to see well. Hang light-weight curtains or shades to reduce glare. Have handrails and lights put in on all staircases. Wear shoes both inside and outside the house. Avoid going barefoot or wearing slippers. For more information, contact: Centers for Disease Control and Prevention www.cdc.gov/injury * This information may not apply if you have certain medical conditions. documented in this encounter [facility] 01-14-2024 Note HNO ID: [id number] Author: BATSHEVA HASSAN MA Service: ? Author Type: Die Sizer Type: Progress Notes Filed: 01/14/2024 14:28 Note Text: Scan on 01/11/2024 9:40 AM by Kofi Lilly PA-C: CT Scan Batsheva Hassan MA [facility] 01-14-2024 History of Presen t illness Narrative Scan on 01/11/2024 9:40 AM by Kofi Lilly PA-C: CT Scan Batsheva Hassan MA documented in this encounter [facility] 01-10-2024 Note HNO ID: [id number] Author: ANNI ANTONIO LPN Service: ? Author Type: LICENSED NURSE Type: Progress Notes Filed: 01/10/2024 11:11 Note Text: Scan on 01/10/2024 8:24 AM by Kofi Lilly PA-C: Miscellaneous Lab [facility] 01-10-2024 History of Presen t illness Narrative Scan on 01/10/2024 8:24 AM by Provider, PRASHANTH Kirby: Miscellaneous Lab documented in this encounter [facility] 01-05-2024 Note HNO ID: [id number] Author: MINDI THOMAS APRN.HAND WOOD SANDER Service: ? Author Type: Nurse Practitioner Type: Progress Notes Filed: 01/05/2024 14:25 Note Text: This note was created using [employer]. Subjective Richelle Cardozo is a 68 year old female. Symptoms start about 1 month ago. She just had the cough for about 2 wks , then for the past 2 wks the other symptoms have become worse. Using OTC cough/cold meds. Review of Systems HENT: Positive for congestion, rhinorrhea, sinus pain and sore throat. Respiratory: Positive for cough. Neurological: Positive for headaches. Objective BP 104/68 (BP Site: Left Arm, BP Position: Sitting, BP Cuff Size: Regular Adult) Pulse 92 Temp 36.6 ?C (97.8 ?F) Resp 16 Wt 62.9 kg (138 lb 10.7 oz) SpO2 99% BMI 22.90 kg/m? Physical Exam HENT: Head: Normocephalic. Nose: Congestion and rhinorrhea present. Mouth/Throat: Mouth: Mucous membranes are moist. Cardiovascular: Rate and Rhythm: Normal rate. Pulmonary: Breath sounds: Normal breath sounds. Skin: General: Skin is warm. Neurological: Mental Status: She is alert. Assessment and Plan ASSESSMENT/PLAN: 1. Bacterial sinusitis - ICD9: 473.9, 041.9, ICD10: J32.9, B96.89 - Will begin treatment with as per antibiotic as written, see orders - The patient should also be given OTC decongestants prn, OTC cough and cold meds as needed, and warm salt water gargles, throat lozenges and/or OTC throat spray as needed for the first 5-7 days of treatment. - Supportive care with plenty of fluids, rest, and analgesia prn. - Follow up in 3-5 days if symptoms persist or worsen. Mindi Thomas APRN.CNP [facility] 01-05-2024 History of Presen t illness Narrative This note was created using [employer]. Subjective Richelle Cardozo is a 68 year old female. Symptoms start about 1 month ago. She just had the cough for about 2 wks , then for the past 2 wks the other symptoms have become worse. Using OTC cough/cold meds. Review of Systems HENT: Positive for congestion, rhinorrhea, sinus pain and sore throat. Respiratory: Positive for cough. Neurological: Positive for headaches. Objective BP 104/68 (BP Site: Left Arm, BP Position: Sitting, BP Cuff Size: Regular Adult) Pulse 92 Temp 36.6 C (97.8 F) Resp 16 Wt 62.9 kg (138 lb 10.7 oz) SpO2 99% BMI 22.90 kg/m Physical Exam HENT: Head: Normocephalic. Nose: Congestion and rhinorrhea present. Mouth/Throat: Mouth: Mucous membranes are moist. Cardiovascular: Rate and Rhythm: Normal rate. Pulmonary: Breath sounds: Normal breath sounds. Skin: General: Skin is warm. Neurological: Mental Status: She is alert. Assessment and Plan ASSESSMENT/PLAN: 1. Bacterial sinusitis - ICD9: 473.9, 041.9, ICD10: J32.9, B96.89 - Will begin treatment with as per antibiotic as written, see orders - The patient should also be given OTC decongestants prn, OTC cough and cold meds as needed, and warm salt water gargles, throat lozenges and/or OTC throat spray as needed for the first 5-7 days of treatment. - Supportive care with plenty of fluids, rest, and analgesia prn. - Follow up in 3-5 days if symptoms persist or worsen. Mindi Thomas APRN.REBECCA documented in this encounter [facility] 12-31-2023 Note HNO ID: [id number] Author: ANNI ANTONIO LPN Service: ? Author Type: LICENSED NURSE Type: Progress Notes Filed: 12/31/2023 08:00 Note Text: Scan on 12/28/2023 10:46 AM by Kofi Lilly PA-C: Consultation - [facility] 12-31-2023 History of Presen t illness Narrative Scan on 12/28/2023 10:46 AM by Kofi Lilly PA-C: Consultation - documented in this encounter [facility] 12-31-2023 Note HNO ID: [id number] Author: ANNI ANTONIO LPN Service: ? Author Type: LICENSED NURSE Type: Progress Notes Filed: 12/31/2023 07:47 Note Text: Scan on 12/28/2023 2:49 PM by Kofi Lilly PA-C: Consultation - Ophthalmology [facility] 12-31-2023 History of Presen t illness Narrative Scan on 12/28/2023 2:49 PM by Kofi Lilly PA-C: Consultation - Ophthalmology documented in this encounter [facility] 12-11-2023 Note HNO ID: [id number] Author: BATSHEVA HASSAN MA Service: ? Author Type: Die Sizer Type: Progress Notes Filed: 12/11/2023 16:47 Note Text: Scan on 12/07/2023 11:38 AM by Kofi Lilly PA-C: Consultation - Cardiology Batsheva Hassan MA [facility] 12-11-2023 History of Presen t illness Narrative Scan on 12/07/2023 11:38 AM by Kofi Lilly PA-C: Consultation - Cardiology Batsheva Hassan MA documented in this encounter [facility] 11-28-2023 Telephone encounter Note Patient was notified Aria Scherer MA [facility] 11-28-2023 Miscellaneous Notes Patient was notified Aria Scherer MA Let patient know B12 and iron labs were ok. documented in this encounter [facility] 11-27-2023 Telephone encounter Note Let patient know B12 and iron labs were ok. [facility] 11-20-2023 Note HNO ID: [id number] Author: ANNI ANTONIO LPN Service: ? Author Type: LICENSED NURSE Type: Progress Notes Filed: 11/20/2023 13:13 Note Text: Scan on 11/20/2023 12:44 PM by Kofi Lilly PA-C: Consultation - Nephrology/Renal [facility] 11-20-2023 History of Presen t illness Narrative Scan on 11/20/2023 12:44 PM by Kofi Lilly PA-C: Consultation - Nephrology/Renal documented in this encounter [facility] 11-13-2023 Note HNO ID: [id number] Author: BATSHEVA HASSAN MA Service: ? Author Type: Die Sizer Type: Progress Notes Filed: 11/13/2023 16:03 Note Text: Scan on 11/12/2023 5:35 PM by Kofi Lilly PA-C: Alia Hassan MA [facility] 11-13-2023 History of Presen t illness Narrative Scan on 11/12/2023 5:35 PM by Kofi Lilly PA-C: Alia Hassan MA documented in this encounter [facility] 11-01-2023 Note HNO ID: [id number] Author: LOUISE FONSECA LPN Service: ? Author Type: LICENSED NURSE Type: Progress Notes Filed: 11/01/2023 13:02 Note Text: Scan on 10/30/2023 3:45 PM by ProviderKofi PA-C: Echo [facility] 11-01-2023 History of Presen t illness Narrative Scan on 10/30/2023 3:45 PM by ProviderKofi PA-C: Echo documented in this encounter [facility] 09-21-2023 Miscellaneous Notes Patient calling since she saw lab orders on her my chart. Went over results, notes from Yokasta TERRAZAS with understanding. Aware lab orders in computer to complete in 2 months. Let patient know that her hemoglobin is back up to 11.4 which is closer to her baseline but still mildly low. Her b12 level is low normal. Recommend starting OTC b12 1000mcg once daily. Her iron is also low normal. Recommend increasing iron. Can take slow Fe or a flinstones vitamin with iron so not as harsh on stomach. Repeat labs in 2 months. Yokasta Mcnulty PA-C documented in this encounter [facility] 09-17-2023 Miscellaneous Notes Call placed to patient and provider message below reviewed. Patient verbalizes understanding and will have blood work completed. Radha Hanks RN Let patient know I placed some orders to repeat a CBC and some additional labs. Orders placed. She has a Hx of chronic anemia as low as 10.0 in the past. Her most recent lab was 10.4. however looking back over the past year she had been running 11.2-12.2 so this is lower. May be a component of her Plaquenil and the surgery she had back at the end of July. Patient calls to ask provider if anything further is needed done for her labs drawn on 09/03/2023 (specifically HGB 10.4 and HCT 33.3). Per patient, Rheumatology ordered labs but told her to follow up with PCP because they were low. Please review and advise, aRdha Hanks RN documented in this encounter [facility] 09-07-2023 Note HNO ID: [id number] Author: PEDRITO MCDANIEL APRN.HAND WOOD SANDER Service: ? Author Type: Nurse Practitioner Type: Progress Notes Filed: 09/07/2023 13:43 Note Text: Chief Complaint Patient presents with: F/U 3 Month HPI Richelle Cardozo is a 68 year old female who presents here today for Above Complaints.. Patient presents for routine follow up. 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 This was resected and patient not currently needing radiation/chemo. Past medical history, appointments, medications, allergies reviewed. [...] kidney disease) stage 3, GFR 30-59 ml/min ([facility]) 2013 Diverticulosis of colon [...] fluticasone 50 mcg/actuation nasal spray Use 2 Spra (more content not included)... [facility] 09-07-2023 History of Presen t illness Narrative Chief Complaint Patient presents with: F/U 3 Month HPI Richelle Cardozo is a 68 year old female who presents here today for Above Complaints.. Patient presents for routine follow up. 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 This was resected and patient not currently needing radiation/chemo. Past medical history, appointments, medications, allergies reviewed. [...] kidney disease) stage 3, GFR 30-59 ml/min ([facility]) 2013 Diverticulosis of colon [...] No Review of Symptoms REVIEW OF SYSTEMS SEE HPI EXAM: BP 100/60 Pulse 84 Resp 14 Wt 59.9 kg (132 lb) BMI 21.80 kg/m General Appearance: Well appearing, alert, in no acute distress, well-hydrated, well nourished.. Lungs: Lungs clear to auscultation. No wheezing, rhonchi, rales.. Heart: RRR without murmur, gallop, or rubs. No ectopy. Health Maintenance List Hepatitis C Screening Never done RSV Vaccine(1 - 1-dose 60+ series) Never done Serum Creatinine due on 05/17/2016 Hemoglobin/Hematocrit due on 10/26/2019 Diabetes Screening due on 01/17/2021 Lipid Screening due on 01/17/2023 Advance Directive Discussion Never done DTaP,Tdap,Td Vaccine(3 - Td or Tdap) due on 01/01/2024 Mammogram Screening due on 02/10/2024 Annual PCP Team Chronic Disease Visit due on 06/05/2024 BP Controlled (<130/80) due on 06/05/2024 Colorectal Cancer Screening due on 01/27/2026 Bone Density Screening Completed Influenza Vaccine Completed Covid-19 Vaccine Completed Pneumococcal Vaccine: 65+ Completed Behavioral Health Screening Discontinued Shingrix Vaccine Discontinued ASSESSMENT/PLAN: 1. Abnormal EKG - ICD9: 794.31, ICD10: R94.31 (primary diagnosis) -Has not heard back from cardiology, encouraged patient to call [facility] office for further evaluation. 2. Renal mass - ICD9: 593.9, ICD10: N28.89 -Resolved. Follow up scheduled with Dr. Longoria in November. Pedrito Mcdaniel APRN.HAND WOOD SANDER documented in this encounter [facility] 09-03-2023 Note HNO ID: [id number] Author: LOUISE FONSECA LPN Service: ? Author Type: LICENSED NURSE Type: Progress Notes Filed: 09/03/2023 18:34 Note Text: Scan on 09/03/2023 5:07 PM by Provider, External, PA-C: Hematology [facility] 09-03-2023 History of Presen t illness Narrative Scan on 09/03/2023 5:07 PM by ProviderKofi PA-C: Hematology documented in this encounter [facility] 08-21-2023 Note HNO ID: [id number] Author: ANNI ANTONIO LPN Service: ? Author Type: LICENSED NURSE Type: Progress Notes Filed: 08/21/2023 10:37 Note Text: Scan on 08/21/2023 8:21 AM by ProviderKofi PA-C: Consultation - [facility] 08-21-2023 History of Presen t illness Narrative Scan on 08/21/2023 8:21 AM by Kofi Lilly PA-C: Consultation - documented in this encounter [facility] 08-02-2023 Consult note Note Date/Time August 02, 2023 10:04am [facility] Medical Records Department [address] [place] [id number] Counseling Note - Pharmacy 08/02/23 1001 MR#: [id number] Acct: [id number] Name: RICHELLE CARDOZO Rep #:[id number] : 1955 68 From: Claire Zarate PCP: Dr. Vinny Briones MD Status:[facility] Location: [facility] [place]467-2 Pharmacy [facility] has performed discharge medication reconciliation and counseling for this patient. 1. DOCUSATE 100MG PO BID X 10 DAYS 2. OXYCODONE 5MG PO Q6H PRN PAIN The patient's discharge medication list was reviewed for discrepancies and discrepancies were resolved. The patient was counseled on the following discharge medications and changes in medications for homegoing were reviewed. The Reason for Use, instructions for use, and potential side effects were reviewed for all new medications. The patient's questions regarding all of their medications were answered. The patient was able to verbally demonstrate an understanding of their dischargemedications. Patient counseled by pharmacy clerk, Rony. Medications at Discharge Home Medications calcium carbonate 600 mg-vitamin D3 20 mcg (800 unit) tablet 1 tab PO BIDCM 03/14/13 fluticasone propionate 50 mcg/actuation nasal spray,suspension 2 spray NASAL DAILY 03/14/13 omeprazole 20 mg capsule,delayed release 20 mg PO DAILY 03/14/13 montelukast 10 mg tablet 10 mg PO DAILY ALLERGIES 09/23/14 cholecalciferol (vitamin D3) 50 mcg (2,000 unit) capsule 2,000 unit PO DAILY 09/20/17 hydroxychloroquine 200 mg tablet 200 mg PO DAILY 05/24/23 metoprolol tartrate 25 mg tablet 25 mg PO BID #60 tabs 05/29/23 alendronate sodium 35 mg PO SA 06/14/23 lactobacillus combination no.9 4 billion cell capsule (Adult 50 Plus Probiotic) 4,000 mmu cells PO DAILY 06/14/23 docusate sodium 100 mg capsule (Colace) 100 mg PO BID #20 caps 08/01/23 oxycodone 5 mg tablet 5 mg PO Q6H PRN pain 7 days #10 tabs 08/01/23 08/02/23 1007 <Electronically signed by Claire Zarate> Date _ Claire Zarate Cosigner Signature (if applicable): Date CC: ~ Signed [facility] Work Phone: 1(471) 395-756902-29-2024 Progress note Author Garret Longoria [facility] August 02, 2023 7:05am Note Date/Time August 02, 2023 7:05am [facility] Medical Records Department [address] [place] [address] Progress Note - Urology 08/02/23 0705 MR#: [id number] Acct: [id number] Name: RICHELLE CARDOZO Rep #:[id number] : 1955 68 From: Garret Longoria MD PCP: Dr. Vinny Briones MD Status:[facility] [place] Location: [place]3 [id number] Subjective Subjective 68-year-old female status post right partial nephrectomy, doing well, advance diet to regular, DC Branch, and she can go home later today. Objective Data Objective Data Vital Signs: Vital Signs Temp Pulse Resp BP Pulse Ox O2 Del Method O2 Flow Rate 97.6 F L 66 18 109/64 100 Nasal Cannula 2 08/02/23 00:38 08/02/23 00:38 08/02/23 00:38 08/02/23 00:38 08/02/23 00:38 08/02/23 00:38 08/02/23 00:38 Oxygen Flow Rate (L/min) 2 Oxygen Delivery Method Nasal Cannula Weight: 60 kg Body Mass Index (BMI) 21.3 Intake & Output: Intake and Output for Last 24 Hours 07/31/23 08/01/23 08/02/23 23:59 23:59 23:59 Intake Total 1189.67 / 1189.67 750 / 750 Output Total 575 / 575 900 / 900 Balance 614.67 / 614.67 -150 / -150 Lab / Micro Data 07/24/23 16:35 07/24/23 16:35 08/02/23 0705 <Electronically signed by Garret Longoria MD> Cosigner Signature (if applicable): CC: ~ Signed [facility] Work Phone: 1(592) 762-675102-28-2024 Discharge summary Author Garret Longoria [facility] August 01, 2023 9:33am Note Date/Time August 01, 2023 9:33am [facility] Medical Records Department [address] [place] [address] Instructions for Home/Discharge Instructions 08/01/2333 MR#: [id number] Acct: [id number] Name: RICHELLE CARDOZO BETO Rep #:[id number] : 1955 68 From: Garret Longoria MD PCP: Dr. Vinny Briones MD Status:[facility] [place] Discharge Instructions Diet Discharge Diet: No restrictions Activity Discharge Activity: Return to Normal Activity and May Not Drive (while taking narcotic pain medications.) Dressing / Incision Call your doctor if you observe: Fever of 101 or Higher Follow Up Care Please Follow Up With: Garret Longoria MD When: Call [phone] for an appointment Test Results: Test results from this visit will be discussed in further detail at your follow- up appointment, if applicable. Discharge Plan Admission Primary Reason for Your Visit: Resection of renal mass left Attending Provider: Garret Longoria Primary Care Provider: Vinny Briones Consulting Providers: Steve Baxter Discharge Orders/Prescriptions Prescriptions: New oxycodone 5 mg tablet 5 mg PO Q6H PRN (Reason: pain) 7 Days Qty: 10 0RF docusate sodium [Colace] 100 mg capsule 100 mg PO BID Qty: 20 0RF Continued Adult 50 Plus Probiotic 4 billion cell capsule 4,000 mmu cells PO DAILY Rx Instructions: administer with a meal alendronate sodium 35 mg 35 mg PO SA omeprazole 20 MG capsule 20 mg PO DAILY fluticasone propionate 1 SPRAY spray,suspension 2 spray NASAL DAILY calcium carbonate-vitamin D3 1 TAB tablet 1 tab PO BIDCM montelukast 10 MG tablet 10 mg PO DAILY cholecalciferol (vitamin D3) 2,000 UNIT capsule 2,000 unit PO DAILY hydroxychloroquine 200 mg tablet 200 mg PO DAILY metoprolol tartrate 25 mg Tablet 25 mg PO BID Qty: 60 2RF Referrals / Follow Up: Vinny Briones MD [Primary Care Provider] - Garret Longoria MD [Med Staff - Active Staff] - Disposition Disposition (needs filled in before D/C Order can be placed): Home, Self Care 08/01/23 0933<Electronically signed by Garret Longoria MD>Garret Longoria MD CC: Dr. Steve Baxter MD; Dr. Vinny Briones MD ~ Signed [facility] Work Phone: [phone]) 624-214602-28-2024 History and physical note Author Garret Longoria [facility] August 01, 2023 9:33am Note Date/Time August 01, 2023 9:33am [facility] Medical Records Department [address] [place] [address] [place] [address] History & Physical Exam 08/01/23 0933 MR#: [id number] Acct: [id number] Name: RICHELLE CARDOZO Rep #:[id number] : 1955 68 From: Garret Longoria MD PCP: Dr. Vinny Briones MD [facility] Location: [address] - General General Date of Service: 08/01/23 Chief Complaint: Solid right renal mass HPI Narrative RICHELLE CARDOZO, is a 68 F who presents for a laparoscopic robotic assisted right partial nephrectomy for a solid mass concerning for renal cell carcinoma [facility] Medical History (Updated 08/01/23 @ 09:[address] Garret Longoria MD) Abnormal echocardiogram Anemia Bone lesion Cancer Cardiology follow-up encounter Celiac disease Chronic kidney disease, stage 3 DVT (deep venous thrombosis) Essential hypertension GERD (gastroesophageal reflux disease) Hemorrhoid History of echocardiogram History of irregular heartbeat History of renal disease Mixed hyperlipidemia Non-smoker Osteoarthritis Right renal mass Sjogren's disease Wears glasses Home Medications calcium carbonate 600 mg-vitamin D3 20 mcg (800 unit) tablet 1 tab PO BIDCM 03/14/13 [History Last Taken 07/31/23] fluticasone propionate 50 mcg/actuation nasal spray,suspension 2 spray NASAL DAILY 03/14/13 [History Last Taken 07/31/23] omeprazole 20 mg capsule,delayed release 20 mg PO DAILY 03/14/13 [History Last Taken 08/01/23] montelukast 10 mg tablet 10 mg PO DAILY ALLERGIES 09/23/14 [History Last Taken 07/31/23] cholecalciferol (vitamin D3) 50 mcg (2,000 unit) capsule 2,000 unit PO DAILY 09/20/17 [History Last Taken 07/31/23] hydroxychloroquine 200 mg tablet 200 mg PO DAILY 05/24/23 [History Last Taken 08/01/23] metoprolol tartrate 25 mg tablet 25 mg PO BID #60 tabs 05/29/23 [Rx Last Taken 08/01/23] alendronate sodium 35 mg PO SA 06/14/23 [History Last Taken 07/31/23] lactobacillus combination no.9 4 billion cell capsule (Adult 50 Plus Probiotic) 4,000 mmu cells PO DAILY 06/14/23 [History Last Taken 07/31/23] docusate sodium 100 mg capsule (Colace) 100 mg PO BID #20 caps 08/01/23 [Rx Last Taken Unknown] oxycodone 5 mg tablet 5 mg PO Q6H PRN pain 7 days #10 tabs 08/01/23 [Rx Last Taken Unknown] Allergy/AdvReac Type Severity Reaction Status Date / Time gluten Allergy Food Verified 08/01/23 06:27 Allergy amoxicillin AdvReac Nausea Verified 08/01/23 06:27 doxycycline AdvReac Other Verified 08/01/23 06:27 erythromycin base AdvReac Nausea Verified 08/01/23 06:27 [Erythromycin Base] hydrocodone bitartrate AdvReac Vomiting Verified 08/01/23 06:27 [From Vicodin] Sulfa (Sulfonamide AdvReac Nausea Verified 08/01/23 06:27 Antibiotics) Family History Mother Breast cancer Colon cancer Cancer skin CVA (cerebral vascular accident) Heart disease aortic valve replacement Father CHF (congestive heart failure) Sister Colon cancer Hypertension Brother Prostate cancer Surgical History (Updated 07/23/23 @ 11:25 by Dori Merida) Hx of repair of ear bone S/P cholecystectomy S/P colonoscopy S/P ectopic S/P tubal ligation Social History (Updated 06/14/23 @ 10:53 by Noemi Rain, RN) Smoking Status: Never smoker alcohol intake: never substance use type: does not use caffeine: Yes Type: tea Vital Signs Vital Signs Vital Signs: 08/01/23 06:29 08/01/23 06:29 Temperature 97.6 F L Temperature Source Temporal Pulse Rate 70 Respiratory Rate 16 Respiratory Pattern Normal Blood Pressure 101/62 Blood Pressure Mean 75 Blood Pressure Source Monitor Blood Pressure Position Semi-Fowlers Blood Pressure Location Right Arm Pulse Ox 100 Oxygen Delivery Method Room Air Weight Weight: 60 kg Body Mass Index (BMI) 21.3 Results Lab / Micro Data 07/24/23 16:35 07/24/23 16:35 08/01/23 0933 <Electronically signed by Garret Longoria MD> Cosigner Signature (if applicable): CC: Dr. Vinny Briones MD; Dr. Garret Longoria MD~ Signed [facility] Work Phone: [phone] 174-461502-28-2024 NoteHNO ID: [id number] Author: ANNI ANTONIO LPN Service: ? Author Type: LICENSED NURSE Type: Progress Notes Filed: 08/01/2023 09:54 Note Text: Scan on 08/01/2023 9:43 AM by Kofi Lilly PA-C: Scan on 08/01/2023 9:40 AM by Kofi Lilly PA-C: Discharge Summary Scan on 08/01/2023 9:38 AM [facility] of Present illness Narrative* Anni Antonio LPN - 08/01/2023 9:47 AM EST Scan on 08/01/2023 9:43 AM by Kofi Lilly PA-C: Scan on 08/01/2023 9:40 AM by Kofi Lilly PA-C: Discharge Summary Scan on 08/01/2023 9:38 AM by Kofi Lilly PA-C documented in this encounterUniversity [facility]als [facility]02-28-2024 Procedure [facility]02-21-2024 NoteHNO ID: [id number] Author: ANNI ANTONIO LPN Service: ? Author Type: LICENSED NURSE Type: Progress Notes Filed: 07/25/2023 09:04 Note Text: Scan on 07/24/2023 5:09 PM by Kofi Lilly PA-C: Hematology Scan on 07/24/2023 5:34 PM by Kofi Lilly PA-C: [facility] History of Present illness Narrative* Anni Antonio LPN - 07/25/2023 9:04 AM EST Scan on 07/24/2023 5:09 PM by Kofi Lilly PA-C: Hematology Scan on 07/24/2023 5:34 PM by Kofi Lilly PA-C: Chemistry documented in this encounterUniversity [facility]als St. [facility]01-31-2024 NoteHNO ID: [id number] Author: ANNI ANTONIO LPN Service: ? Author Type: LICENSED NURSE Type: Progress Notes Filed: 07/04/2023 11:56 Note Text: Scan on 07/03/2023 4:33 PM by ProviderKofi PA-C: Consultation - [facility]01-25-2024 NoteHNO ID: [id number] Author: ANNI ANTONIO LPN Service: ? Author Type: LICENSED NURSE Type: Progress Notes Filed: 06/28/2023 08:03 Note Text: Scan on 06/26/2023 3:52 PM by Kofi Lilly PA-C: [facility]-2024 NoteHNO ID: [id number] Author: ANNI ANTONIO LPN Service: ? Author Type: LICENSED NURSE Type: Progress Notes Filed: 06/19/2023 07:16 Note Text: Scan on 06/18/2023 3:37 PM by Kofi Lilly PA-C: Consultation - [facility]01-11-2024 NoteHNO ID: [id number] Author: ANNI ANTONIO LPN Service: ? Author Type: LICENSED NURSE Type: Progress Notes Filed: 06/14/2023 13:18 Note Text: Scan on 06/14/2023 11:56 AM by Kofi Lilly PA-C: [facility]-2024 NoteHNO ID: [id number] Author: Pedrito Mcdaniel APRN.HAND WOOD SANDER Service: ? Author Type: Nurse Practitioner Type: Progress Notes Filed: 06/05/2023 1:14 PM Note Text: Chief Complaint Patient presents with: Hospital F/U [facility] Richelle Cardozo is a 68 year [...] kidney disease) stage 3, GFR 30-59 ml/min ([facility]) 2013 Diverticulosis of colon [...] cap Take 1 tabl (more content not included)...[facility]12-26-2023 Discharge summary Author Sandi Arias [facility] May 29, 2023 1:24pm Note Date/Time May 29, 2023 1:24pm [facility] Medical Records Department [address] [place] [address] Instructions for Home/Discharge Instructions 05/29/23 1324 MR#: [id number] Acct: [id number] Name: RICHELLE CARDOZO Rep #:[id number] : 1955 68 From: Sandi Arias MD PCP: Dr. Vinny Briones MD Status:ADM IN Discharge Instructions Diet Discharge Diet: Low fat / Low cholesterol Activity Discharge Activity: Return to Normal Activity Weight Bearing Status: Weight bearing as tolerated Dressing / Incision Call your doctor if you observe: Fever of 101 or Higher, Shortness of breath, Dizziness, Swelling in the ankles, Chest pain and Increased palpitations (irregular heartbeat) Follow Up Care Test Results: Test results from this visit will be discussed in further detail at your follow- up appointment, if applicable. Discharge Plan Admission Admit Date/Time: 05/25/23 03:37 Primary Reason for Your Visit: pneumonia Attending Provider: Sandi Arias Primary Care Provider: Vinny Briones Consulting Providers: Darius Garcia; Darius Zepeda; Ryley Garner; Steven Francisco; Benedicto Mccain; Brent Augustin; Dontae Handy; Derek Obrien; Carlotta Head NP; Garret Longoria; Jason Marques Instructions Patient Instructions: ED Pneumonia (Adult) Discharge Orders/Prescriptions Prescriptions: New metoprolol tartrate 25 mg Tablet 25 mg PO BID Qty: 60 2RF levofloxacin 500 mg tablet 500 mg PO DAILY Qty: 5 0RF Continued omeprazole 20 MG capsule 20 mg PO DAILY fluticasone propionate 1 SPRAY spray,suspension 2 spray NASAL DAILY calcium carbonate-vitamin D3 1 TAB tablet 1 tab PO BIDCM montelukast 10 MG tablet 10 mg PO DAILY cholecalciferol (vitamin D3) 2,000 UNIT capsule 2,000 unit PO DAILY hydroxychloroquine 200 mg tablet 200 mg PO DAILY Referrals / Follow Up: Graeme Jennings MD [Med Staff - Active Staff] - Within 2 Weeks (see to establish care for abnormal echo) Vinny Briones MD [Primary Care Provider] - Within 2 Weeks Garret Longoria MD [Med Staff - Active Staff] - Within 2 Weeks Steven Francisco MD [Med Staff - Active Staff] - Within 2 Weeks Disposition Disposition (needs filled in before D/C Order can be placed): Home, Self Care 05/29/23 1324<Electronically signed by Sandi Arias MD>Sandi Arias MD CC: MOLECULAR BIOLOGY SCIENTIST-C Carlotta Head; Dr. Darius Zepeda MD; Dr. Darius Garcia DO; Dr. Vinny Briones MD; Dr. Ryley Garner MD; Dr. Garret Longoria MD; Dr. Steven Francisco MD; Dr. Jason Marques MD; Dr. Benedicto Mccain MD; Dr. Dontae Handy MD; Dr. Brent Augustin MD; Dr. Derek Obrien DO ~ Signed [facility] Work Phone: 1(695) 732-872712-26-2023 Discharge summary Author [facility] May 29, 2023 2:40pm Note Date/Time May 29, 2023 1:24pm [facility] Medical Records Department [address] [place] [id number] Discharge Summary 05/29/23 1324 MR#: [id number] Acct: [id number] Name: RICHELLE CARDOZO BETO Rep #:[id number] : 1955 68 From: Sandi Arias MD PCP: Dr. Vinny Briones MD Status:ADM IN Location: [place] [address] Providers Date of Admission: 05/25/23 Date of Discharge: 05/29/23 Primary Care Physician: Dr. Vinny Briones MD Consultations 05/25/23 03:45 Consult: Urology Routine Consulting Provider: Garret Longoria Reason for Consult: Newly diagnosed ~2.2 cm renal mass suspicious for renal cell carcinoma EMERGENT Consult: No Notified: Yes Date Notified: 05/25/23 Time Notified: 12:21 Method of Notification: Verbal Comments:: telephone call 05/25/23 04:15 Consult: Oncology/Hematology Routine Consulting Provider: *[facility] Reason for Consult: ~2.2 cm renal mass with possible metastases with ~1 centimeter mass in T11 EMERGENT Consult: No Notified: Yes Date Notified: 05/25/23 Time Notified: 11:12 Method of Notification: phone 05/25/23 12:53 Consult: Urology Routine Consulting Provider: Garret Longoria Reason for Consult: right renal mass 2.2 cm EMERGENT Consult: No Notified: Yes Date Notified: 05/25/23 Time Notified: 12:54 Method of Notification: Verbal Reason For Visit: BIBASILAR PNEUMONIA WITH A -2.2 CM RENAL MASS OF Diagnosis Discharge Diagnosis (1) Pneumonia: Status: Acute Code(s): J18.9 - Pneumonia, unspecified organism Qualifiers: Laterality: bilateral Lung location: lower lobe of lung Pneumonia type: due to unspecified organism Qualified Code(s): J18.9 - Pneumonia, unspecified organism (2) Hypoxia: Status: Acute Code(s): R09.02 - Hypoxemia (3) Right renal mass: Status: Acute Code(s): N28.89 - Other specified disorders of kidney and ureter Plan #Acute hypoxia due to bilateral pneumonia and influenza infection * CT chest showed bilateral pneumonia. * On IV ceftriaxone and azithromycin. Breathing treatments bronchodilators. * Titrate oxygen to maintain saturation above 90%. On 3L of oxygen by nasal canula * Urine for strep and Legionella negative. Sputum cultures pending. Blood cultures also pending. * on tamiflu for Influenza A. * now on room air. * #sinus tachycardia * Patient's heart rate has been fluctuating has been running in the 120s. TSH within normal limits. Will order 2D echo. * She just had a CT of the chest a few days ago which was negative for any evidence of PE we will hold off further repeat. * Will start on p.o. metoprolol 25 mg twice daily. * IV lopressor prn * #Recently diagnosed with right upper pole renal mass * Imaging done also showed a 1 cm lesion encasing within the T11 vertebral body concerning for possible metastasis in the setting of probable renal carcinoma. She does have a strong family history of breast, colon and skin cancer in her family. * Urology on board. Will benefit from MRI of the abdomen to better characterize the lesion. * to have MRI on outpatient basis * oncology reviewed her during this admission and she is to follow up with them on outpatient basis. * #GABRIELLE:resolved. #Elevated D-dimer: CTA of the chest was negative for any evidence of PE. Duplexof the lower extremities also negative #Hypokalemia: Will replace and trend #Hyponatremia: Resolved. #History of Sjogren syndrome: On hydroxychloroquine #Benign essential hypertension: On IV hydralazine as needed. #Hyperlipidemia: On statin DVT prophylaxis; lovenox. Disposition: Anticipate discharge tomorrow if her heart rate improves. Medications at Discharge Home Medications calcium carbonate 600 mg-vitamin D3 20 mcg (800 unit) tablet 1 tab PO BIDCM 03/14/13 fluticasone propionate 50 mcg/actuation nasal spray,suspension 2 spray NASAL DAILY 03/14/13 omeprazole 20 mg capsule,delayed release 20 mg PO DAILY 03/14/13 montelukast 10 mg tablet 10 mg PO DAILY ALLERGIES 09/23/14 cholecalciferol (vitamin D3) 50 mcg (2,000 unit) capsule 2,000 unit PO DAILY 09/20/17 hydroxychloroquine 200 mg tablet 200 mg PO DAILY 05/24/23 levofloxacin 500 mg tablet 500 mg PO DAILY #5 tabs 05/29/23 metoprolol tartrate 25 mg tablet 25 mg PO BID #60 tabs 05/29/23 Hospital Course Operations None Procedures 2-D Echocardiogram Summary of Care Provided Minutes Spent on Discharge: 55 Hospital Course: Patient is a 68-year-old female with a past medical history as outlined was admitted through the ED on 05/25/2023 with a complaint of shortness of breath which started 5 days prior to admission. Had gradually worsened to the point where she could not even walk from the kitchen to her living room without getting short of breath. She had an associated cough which was not productive of sputum. She denied any fever or chills, sore throat, any chest pain or rhinorrhea or any other symptoms. Review of systems otherwise negative. CTA ofthe chest done was negative for PE but showed extensive bilateral pneumonia. White cell count was elevated at 13. CT also showed an incidental finding of a 2.2 cm mass in the upper pole of the right kidney with high index of suspicion for renal cell carcinoma and a 1 cm lucent lesion within the T11 vertebral body suspicious for possible metastatic disease. Cr was 1.95, and she had hypokalemiaand and hypokalemia. D dimer was elevated but CTA was negative for PE. Duplex of the lower extremities was also negative for any evidence of PE. She was admitted and managed for hypoxia due to community-acquired pneumonia. She was started on IV vancomycin and Zosyn. Oncology and urology were consulted in light of the finding of right renal mass. Hyponatremia is subsequently resolved. Urine for strep pneumonia antigen was positive. She was hydrated with IV fluids and felt better. His symptoms resolved. Hospital course was complicated by persistent tachycardia. TSH done was within normal limits. Of note CTA had been negative for any evidence of PE. She had a 2D echo which showed EF of 50% with mild segmental systolic dysfunction and regional wall motion abnormalities namely hypokinesia of the left ventricle. This was discussed with cardiology (Dr Grove) who recommended that since patient's EF wasstable at 50%, she could follow-up with pulmonology on outpatient basis. She had been started on p.o. metoprolol 25 mg twice daily during this admission and this was continued. She is to follow-up with her primary care doctor within 1 to 2 weeks. She was also to follow-up with oncology and urology on outpatient basis. Oncology did see patient and recommended that she have a bone scan and MRI of the abdomen and pelvis. Could be done on outpatient basis when she followed up with oncology. She was also referred to cardiology in light of the persistent sinus tachycardia and abnormal echo findings. She was discharged homeon PO levofloxacin 50mg daily x 5 days for pneumonia. Patient seen and examined prior to discharge. She felt well and had no complaints. She had an uneventful night. Review of systems otherwise negative. Labsand vitals reviewed. Home medication reviewed and reconciled. Physical Exam Const alert, oriented x3, no apparent distress and average body habitus General Appearance: cooperative and comfortable Orientation / Consciousness: awake Exam Limitations: no limitations HEENT normocephalic, head/scalp atraumatic, hearing grossly normal bilaterally, moist oral mucous membranes and oropharynx normal Mouth: oral and palatal mucosa normal Eyes PERRL and EOMs intact bilaterally Neck no lymphadenopathy and supple Lymph Lymphatic: no lymphadenopathy noted and no lymphedema noted Resp Resp Narrative: mildly diminished breath sounds bibasally, mild wheezes but no crackles. On roomair. Auscultation: rhonchi Cardio regular rate, regular rhythm, S1 normal heart sound, S2 normal heart sound and no murmurs Cardio Narrative: tachycardic GI normal to inspection, nondistended, normoactive bowel sounds, soft to palpation,non-tender and non-distended Extremity normal to inspection, full ROM, normal capillary refill, no clubbing, cyanosis or edema and no calf tenderness General Extremity: no tenderness to palpation of joints or extremities Skin no rashes or lesions noted and skin turgor normal General Skin Exam: no breakdown Neuro oriented x3, CN's II-XII intact bilaterally, moves all extremities, no focal motor deficits, no sensory deficits noted and deep tendon reflexes 2+ bilaterally Sensorium / Orientation: awake, alert, oriented to person, oriented to place andoriented to time Speech: speech normal Motor Exam: strength 5/5 throughout and general weakness Psych thought process normal and cooperative Appearance: appropriate Medical Records Data Medical Nutrition Assessment Dietitian: Malnutrition Criteria Met Start: 05/25/23 11:05 Freq: Status: Active Protocol: Document 05/25/23 11:05 (Rec: 05/25/23 11:05 [id number]) Nutrition Malnutrition Evidence of Malnutrition Exists Yes Malnutrition (severe): Acute Illness/Injury Evidenced By Suboptimal Energy Intake ( Severe),Weight Loss (Severe) Clinical Problem Acute Disease or Injury Related Malnutrition Etiology severe, acute malnutrition related to inadequate energy intake Signs/Symptoms as evidenced by unintentional 4.8#/3.3% wt loss x 1 week, estimated PO intake meeting < 50% of estimated energy needs x 1 week Status Active Problem Recommendation Dietitian Recommendations/Changes will liberalize diet to regular/gluten free and add 120mL ensure plus high protein 4x/day w/ medpass given evidence of acute malnutrition Weight / BMI Weight Weight: 140 lb 3.424 oz Body Mass Index (BMI) 22.5 ABG / Lab / Microbiology Data 05/28/23 10:05 05/28/23 10:05 Microbiology: Microbiology 05/25/23 09:15 Sputum, Expectorated/Coughed Gram Stain - Final 05/25/23 09:15 Sputum, Expectorated/Coughed Respiratory Culture - Final Streptococcus pneumoniae 05/25/23 11:30 Urine, Clean Catch Legionella Antigen - Final 05/25/23 11:30 Urine, Clean Catch Streptococcus pneumoniae Antigen (M - Final Streptococcus pneumonia Ag 05/25/23 00:17 Blood Culture (Wb) - Anticubital Left Blood Culture - Preliminary No growth in 48 hours. 05/24/23 23:43 Blood Culture (Wb) - Anticubital Left Blood Culture - Preliminary No growth in 48 hours. 05/24/23 22:45 Mucosa - Nasopharyngeal Respiratory Panel (PCR) - Final Influenza A (Subtype H1) 05/24/23 22:45 Mucosa - Nasopharyngeal Rapid RSV (DFA) - Final 05/24/23 20:08 Nasal Secretion SARS-CoV-2 Antigen (Rapid) - Final Radiography Diagnostic Testing: Radiology Impression Venous Doppler Study 05/25/23 04:15 Interpretation Summary Deep veins of the bilateral lower extremities are patent and compressible segmentally. There is no evidence of bilateral lower extremity deep vein thrombosis. The bilateral great saphenous veins appear patent and compressible segmentally. Ordering Physician: Darius Garcia Referring Physician: Vinny Briones Performed By: Lou Garibay RVT Echocardiogram 05/28/23 10:02 Interpretation Summary The estimated ejection fraction is 50 %. Mild segmental systolic dysfunction (see wall motion). Mildly dilated aortic root. Trivial pericardial effusion. There are no echocardiographic indications of cardiac tamponade. Compared to previous echo, the LV function has decreased mildly. The study was technically difficult. Contrast injection was performed. Ordering Physician: Sandi Arias Performed By: Bruno Cobian RCS D/C Instructions Discharge Diet: Low fat / Low cholesterol Discharge Activity: Return to Normal Activity Weight Bearing Status: Weight bearing as tolerated Call your doctor if you observe: Fever of 101 or Higher, Shortness of breath, Dizziness, Swelling in the ankles, Chest pain and Increased palpitations (irregular heartbeat) Meaningful Use Info Meaningful Use Diagnoses (Choose all that apply): None applicable Discharge Plan Admission Admit Date/Time: 05/25/23 03:37 Primary Reason for Your Visit: pneumonia Attending Provider: Sandi Arias Primary Care Provider: Vinny Briones Consulting Providers: Darius Gracia; Darius Zepeda; Ryley Garner; Steven Francisco; Benedicto Mccain; Brent Augustin; Dontae Handy; Derek Obrien; Carlotta Head NP; Garret Longoria; Jason Marques Instructions Patient Instructions: ED Pneumonia (Adult) Discharge Orders/Prescriptions Prescriptions: New metoprolol tartrate 25 mg Tablet 25 mg PO BID Qty: 60 2RF levofloxacin 500 mg tablet 500 mg PO DAILY Qty: 5 0RF Continued omeprazole 20 MG capsule 20 mg PO DAILY fluticasone propionate 1 SPRAY spray,suspension 2 spray NASAL DAILY calcium carbonate-vitamin D3 1 TAB tablet 1 tab PO BIDCM montelukast 10 MG tablet 10 mg PO DAILY cholecalciferol (vitamin D3) 2,000 UNIT capsule 2,000 unit PO DAILY hydroxychloroquine 200 mg tablet 200 mg PO DAILY Referrals / Follow Up: Graeme Jennings MD [Med Staff - Active Staff] - 06/14/23 11:00 am (see to establishcare for abnormal echo. Appointment is with Dr. Perez.) Vinny Briones MD [Primary Care Provider] - 06/05/23 11:00 am (Appointment is with Dr. Rudd. Dr. Briones had no openings till July.) Garret Longoria MD [Med Staff - Active Staff] - Within 2 Weeks (Dr. Longoria'soffice is closed today for the holiday. I have left a message for the office to call the patient. If the office does not call by the end of the week please callthe office. [phone].) Steven Francisco MD [Med Staff - Active Staff] - 06/06/23 10:00 am Disposition Disposition (needs filled in before D/C Order can be placed): Home, Self Care Charges/Coding Visit Charges Inpatient E&M: 49864 Disch Hosp >30min 05/29/23 1440 <Electronically signed by Sandi Arias MD> Cosigner Signature (if applicable): CC: Dr. Vinny Briones MD; Dr. Sandi Arias MD~ Signed [facility] Work Phone: 1(821) 568-273612-25-2023 Progress note Author Sandi [facility] May 28, 2023 12:02pm Note Date/Time May 28, 2023 11:50am [facility] Medical Records Department [address] [place] [address] Progress Note 05/28/23 1147 MR#: [id number] Acct: [id number] Name: RICHELLE CARDOZO Rep #:[id number] : 1955 68 From: Sandi Arias MD PCP: Dr. Vinny Briones MD Status:ADM IN Location: [place] [address] Subjective Subjective Patient seen and examined. She had no active complaints. She was however found to be very tachycardic with HR going up to the 110s. She denied any chest pain, palpitations, dizziness, nausea, vomiting or any other symptoms. Review of systems is otherwise negative. Objective Data Objective Data Vital Signs: Vital Signs Temp Pulse Resp BP Pulse Ox O2 Del Method O2 Flow Rate 98.6 F 107 H 16 103/66 93 Room Air 2 05/28/23 10:49 05/28/23 11:00 05/28/23 10:49 05/28/23 10:49 05/28/23 10:49 05/28/23 10:52 05/27/23 11:00 FiO2 3 05/27/23 09:44 Oxygen Flow Rate (L/min) 2 Oxygen Delivery Method Room Air Weight: 140 lb 3.424 oz Body Mass Index (BMI) 22.5 Intake & Output: Intake and Output for Last 24 Hours 05/26/23 05/27/23 05/28/23 23:59 23:59 23:59 Intake Total 805 / 1805 1305 / 2105 1055 / 1055 Output Total 1300 / 1300 Balance 805 / 805 5 / 805 1055 / 1055 Medical Nutrition Assessment Dietitian: Malnutrition Criteria Met Start: 05/25/23 11:05 Freq: Status: Active Protocol: Document 05/25/23 11:05 (Rec: 05/25/23 11:05 [id number]) Nutrition Malnutrition Evidence of Malnutrition Exists Yes Malnutrition (severe): Acute Illness/Injury Evidenced By Suboptimal Energy Intake ( Severe),Weight Loss (Severe) Clinical Problem Acute Disease or Injury Related Malnutrition Etiology severe, acute malnutrition related to inadequate energy intake Signs/Symptoms as evidenced by unintentional 4.8#/3.3% wt loss x 1 week, estimated PO intake meeting < 50% of estimated energy needs x 1 week Status Active Problem Recommendation Dietitian Recommendations/Changes will liberalize diet to regular/gluten free and add 120mL ensure plus high protein 4x/day w/ medpass given evidence of acute malnutrition Lab / Micro Data 05/28/23 10:05 05/28/23 10:05 Labs: Laboratory Results - last 24 hr 05/28/23 10:05: WBC 14.6 H, RBC 3.84 L, Hgb 11.3 L, Hct 33.8 L, MCV 88.0, MCH 29.4, MCHC 33.4 D, RDW Std Deviation 50.8 H, RDW Coeff of Casey 15.6 H, Plt [id number], MPV 9.4, Neut % (Auto) Not Reportable, Absolute Neuts (auto) 11.7 H, Absolute Lymphs (auto) 1.75, Total Counted 100, Neutrophils % (Manual) 78 H, Band Neutrophils % 2, Lymphocytes % (Manual) 12 L, Monocytes % (Manual) 1, Metamyelocytes % 7 H, Diff Path Review May foll, Platelet Estimate ADEQUATE, RBCMorphology NORM C+C, Sodium 136, Potassium 3.7, Chloride 111 H, Carbon Dioxide 20.0 L, Anion Gap 5, BUN 11, Creatinine 0.91, Estim Creat Clear Calc 54.62, Est GFR (MDRD) Af Amer 79, Est GFR (MDRD) Non-Af 65, BUN/Creatinine Ratio 12.1, Glucose 133 H, Calcium 9.1, TSH 1.02 Micro: Microbiology 05/25/23 09:15 Sputum, Expectorated/Coughed Gram Stain - Final 05/25/23 09:15 Sputum, Expectorated/Coughed Respiratory Culture - Final Streptococcus pneumoniae 05/25/23 11:30 Urine, Clean Catch Legionella Antigen - Final 05/25/23 11:30 Urine, Clean Catch Streptococcus pneumoniae Antigen (M - Final Streptococcus pneumonia Ag 05/25/23 00:17 Blood Culture (Wb) - Anticubital Left Blood Culture - Preliminary No growth in 48 hours. 05/24/23 23:43 Blood Culture (Wb) - Anticubital Left Blood Culture - Preliminary No growth in 48 hours. 05/24/23 22:45 Mucosa - Nasopharyngeal Respiratory Panel (PCR) - Final Influenza A (Subtype H1) 05/24/23 22:45 Mucosa - Nasopharyngeal Rapid RSV (DFA) - Final 05/24/23 20:08 Nasal Secretion SARS-CoV-2 Antigen (Rapid) - Final Physical Exam Const alert, oriented x3, no apparent distress and average body habitus General Appearance: cooperative HEENT normocephalic, head/scalp atraumatic, hearing grossly normal bilaterally, moist oral mucous membranes and oropharynx normal Eyes PERRL and EOMs intact bilaterally Neck no lymphadenopathy and supple Lymph Lymphatic: no lymphadenopathy noted and no lymphedema noted Resp Resp Narrative: mildly diminished breath sounds bibasally, mild wheezes but no crackles. On roomair. Cardio regular rhythm, S1 normal heart sound, S2 normal heart sound and no murmurs Cardio Narrative: tachycardic GI normal to inspection, nondistended, normoactive bowel sounds, soft to palpation,non-tender and non-distended Extremity normal to inspection, full ROM, normal capillary refill, no clubbing, cyanosis or edema and no calf tenderness General Extremity: no tenderness to palpation of joints or extremities Skin General Skin Exam: no breakdown Neuro oriented x3, CN's II-XII intact bilaterally, moves all extremities, no focal motor deficits, no sensory deficits noted and deep tendon reflexes 2+ bilaterally Sensorium / Orientation: awake, alert, oriented to person, oriented to place andoriented to time Speech: speech normal Motor Exam: strength 5/5 throughout and general weakness Psych thought process normal and cooperative Appearance: appropriate Assessment & Plan Assessment/Plan (1) Pneumonia: QUALIFIERS: Pneumonia type: due to unspecified organism Laterality: bilateral Lung location: lower lobe of lung Qualified Code(s): J18.9 - Pneumonia, unspecified organism (2) Hypoxia: (3) Right renal mass: PLAN: Plan #Acute hypoxia due to bilateral pneumonia and influenza infection * CT chest showed bilateral pneumonia. * On IV ceftriaxone and azithromycin. Breathing treatments bronchodilators. * Titrate oxygen to maintain saturation above 90%. On 3L of oxygen by nasal canula * Urine for strep and Legionella negative. Sputum cultures pending. Blood cultures also pending. * on tamiflu for Influenza A. * now on room air. * #sinus tachycardia * Patient's heart rate has been fluctuating has been running in the 120s. TSH within normal limits. Will order 2D echo. * She just had a CT of the chest a few days ago which was negative for any evidence of PE we will hold off further repeat. * Will start on p.o. metoprolol 25 mg twice daily. * IV lopressor prn * #Recently diagnosed with right upper pole renal mass * Imaging done also showed a 1 cm lesion encasing within the T11 vertebral body concerning for possible metastasis in the setting of probable renal carcinoma. She does have a strong family history of breast, colon and skin cancer in her family. * Urology on board. Will benefit from MRI of the abdomen to better characterize the lesion. * to have MRI on outpatient basis * oncology reviewed her during this admission and she is to follow up with them on outpatient basis. * #GABRIELLE:resolved. #Elevated D-dimer: CTA of the chest was negative for any evidence of PE. Duplexof the lower extremities also negative #Hypokalemia: Will replace and trend #Hyponatremia: Resolved. #History of Sjogren syndrome: On hydroxychloroquine #Benign essential hypertension: On IV hydralazine as needed. #Hyperlipidemia: On statin DVT prophylaxis; lovenox. Disposition: Anticipate discharge tomorrow if her heart rate improves. Charges/Coding Visit Charges Inpatient E&M: 42539 Subs Hosp L2 05/28/23 1202 <Electronically signed by Sandi Arias MD> Sandi Arias MD Cosigner Signature (if applicable): CC: ~ Signed [facility] Work Phone: [phone]) 814-197212-24-2023 Progress note Author Sandi [facility] May 27, 2023 1:56pm Note Date/Time May 27, 2023 10:16am [facility] Medical Records Department [address] [place] [address] Progress Note 05/27/23 1014 MR#: [id number] Acct: [id number] Name: RICHELLE CARDOZO Rep #:[id number] : 1955 68 From: Sandi Arias MD PCP: Dr. Vinny Briones MD Status:ADM IN Location: [place] [id number] Subjective Subjective Patient seen and examined. She had no active complaints and feels better today. She had an uneventful night. She is noted to be tachycardic and tachypneic and remains on 3L of oyxgen. Review of systems is otherwise negative. Objective Data Objective Data Vital Signs: Vital Signs Temp Pulse Resp BP Pulse Ox O2 Del Method O2 Flow Rate 98.2 F 118 H 24 H 114/68 3 Nasal Cannula 3 05/27/23 09:00 05/27/23 09:44 05/27/23 09:44 05/27/23 09:00 05/27/23 09:44 05/27/23 09:44 05/27/23 09:00 FiO2 93 05/27/23 09:44 Oxygen Flow Rate (L/min) 3 Oxygen Delivery Method Nasal Cannula Weight: 140 lb 3.424 oz Body Mass Index (BMI) 22.5 Intake & Output: Intake and Output for Last 24 Hours 05/25/23 05/26/23 05/27/23 23:59 23:59 23:59 Intake Total 4092.50 / 4092.50 805 / 1805 1255 / 1255 Output Total 1200 / 1200 1300 / 1300 Balance 2892.50 / 2892.50 805 / 805 -45 / -45 Medical Nutrition Assessment Dietitian: Malnutrition Criteria Met Start: 05/25/23 11:05 Freq: Status: Active Protocol: Document 05/25/23 11:05 (Rec: 05/25/23 11:05 [id number]) Nutrition Malnutrition Evidence of Malnutrition Exists Yes Malnutrition (severe): Acute Illness/Injury Evidenced By Suboptimal Energy Intake ( Severe),Weight Loss (Severe) Clinical Problem Acute Disease or Injury Related Malnutrition Etiology severe, acute malnutrition related to inadequate energy intake Signs/Symptoms as evidenced by unintentional 4.8#/3.3% wt loss x 1 week, estimated PO intake meeting < 50% of estimated energy needs x 1 week Status Active Problem Recommendation Dietitian Recommendations/Changes will liberalize diet to regular/gluten free and add 120mL ensure plus high protein 4x/day w/ medpass given evidence of acute malnutrition Lab / Micro Data 05/27/23 05:55 05/27/23 05:55 Labs: Laboratory Results - last 24 hr 05/27/23 05:55: WBC 13.5 H, RBC 3.52 L, Hgb 10.0 L, Hct 31.8 L, MCV 90.3, MCH 28.4, MCHC 31.4 L D, RDW Std Deviation 51.1 H, RDW Coeff of Casey 15.4 H, Plt Count 317, MPV 9.7, Neut % (Auto) Not Reportable, Sodium 138, Potassium 3.3 L, Chloride 114 H, Carbon Dioxide 19.0 L, Anion Gap 5, BUN 11, Creatinine 1.03 H, Estim Creat Clear Calc 48.26, Est GFR (MDRD) Af Amer 68, Est GFR (MDRD) Non-Af 56 L, BUN/Creatinine Ratio 10.7, Glucose 99, Calcium 8.6 Micro: Microbiology 05/25/23 11:30 Urine, Clean Catch Legionella Antigen - Final 05/25/23 11:30 Urine, Clean Catch Streptococcus pneumoniae Antigen (M - Final Streptococcus pneumonia Ag 05/25/23 09:15 Sputum, Expectorated/Coughed Gram Stain - Final 05/25/23 09:15 Sputum, Expectorated/Coughed Respiratory Culture - Preliminary Streptococcus pneumoniae 05/25/23 00:17 Blood Culture (Wb) - Anticubital Left Blood Culture - Preliminary No growth in 48 hours. 05/24/23 23:43 Blood Culture (Wb) - Anticubital Left Blood Culture - Preliminary No growth in 48 hours. 05/24/23 22:45 Mucosa - Nasopharyngeal Respiratory Panel (PCR) - Final Influenza A (Subtype H1) 05/24/23 22:45 Mucosa - Nasopharyngeal Rapid RSV (DFA) - Final 05/24/23 20:08 Nasal Secretion SARS-CoV-2 Antigen (Rapid) - Final Radiography Diagnostic Testing: Radiology Impression Chest X-Ray 05/26/23 05:50 IMPRESSION: Mild cardiomegaly hyperinflation and increased linear interstitial and parenchymal opacities at both bases which may represent worsening of pneumonia or worsening atelectasis. Follow-up chest imaging to resolution recommended. Electronically Signed: Matthew Arevalo MD at 12:51 EST , Physical Exam Const alert, oriented x3, no apparent distress and average body habitus General Appearance: cooperative HEENT normocephalic, head/scalp atraumatic, hearing grossly normal bilaterally, moist oral mucous membranes and oropharynx normal Eyes PERRL and EOMs intact bilaterally Neck no lymphadenopathy and supple Lymph Lymphatic: no lymphadenopathy noted and no lymphedema noted Resp Resp Narrative: mildly diminished breath sounds bibasally, mild wheezes but no crackles. On 3L of oxygen by nasal canula. Gets visibly short of breath with talking Cardio regular rhythm, S1 normal heart sound, S2 normal heart sound and no murmurs Cardio Narrative: tachypneic GI normal to inspection, nondistended, normoactive bowel sounds, soft to palpation,non-tender and non-distended Extremity normal to inspection, full ROM, normal capillary refill, no clubbing, cyanosis or edema and no calf tenderness General Extremity: no tenderness to palpation of joints or extremities Skin General Skin Exam: no breakdown Neuro oriented x3, CN's II-XII intact bilaterally, moves all extremities, no focal motor deficits, no sensory deficits noted and deep tendon reflexes 2+ bilaterally Sensorium / Orientation: awake, alert, oriented to person, oriented to place andoriented to time Speech: speech normal Motor Exam: strength 5/5 throughout and general weakness Psych thought process normal and cooperative Appearance: appropriate Assessment & Plan Assessment/Plan (1) Pneumonia: QUALIFIERS: Pneumonia type: due to unspecified organism Laterality: bilateral Lung location: lower lobe of lung Qualified Code(s): J18.9 - Pneumonia, unspecified organism (2) Hypoxia: (3) Right renal mass: PLAN: Plan #Acute hypoxia due to bilateral pneumonia and influenza infection * CT chest showed bilateral pneumonia. * On IV ceftriaxone and azithromycin. Breathing treatments bronchodilators. * Titrate oxygen to maintain saturation above 90%. On 3L of oxygen by nasal canula * Urine for strep and Legionella negative. Sputum cultures pending. Blood cultures also pending. * on tamiflu for Influenza A. * #Recently diagnosed with right upper pole renal mass * Imaging done also showed a 1 cm lesion encasing within the T11 vertebral body concerning for possible metastasis in the setting of probable renal carcinoma. She does have a strong family history of breast, colon and skin cancer in her family. * Urology on board. Will benefit from MRI of the abdomen to better characterize the lesion. * MRI of the abdomen ordered. Oncology also on board. * #GABRIELLE:resolved. #Elevated D-dimer: CTA of the chest was negative for any evidence of PE. Duplexof the lower extremities also negative #Hypokalemia: Will replace and trend #Hyponatremia: Resolved. #History of Sjogren syndrome: On hydroxychloroquine #Benign essential hypertension: On IV hydralazine as needed. #Hyperlipidemia: On statin DVT prophylaxis; lovenox. Charges/Coding Visit Charges Inpatient E&M: 83989 Subs Hosp L2 05/27/23 1356 <Electronically signed by Sandi Arias MD> Sandi Arias MD Cosigner Signature (if applicable): CC: ~ Signed [facility] Work Phone: 1(352) 921-672512-23-2023 Progress note Author [facility] May 26, 2023 2:15pm Note Date/Time May 26, 2023 12:51pm [facility] Medical Records Department [address] [place] [id number] Progress Note 05/26/23 1246 MR#: [id number] Acct: [id number] Name: RICHELLE CARDOZO BETO Rep #:[id number] : 1955 68 From: Sandi Arias MD PCP: Dr. Vinny Briones MD Status:ADM IN [id number] Subjective Subjective Patient seen and examined. She says she started feeling better today. She is still coughing still feels mildly short of breath but is much better from previous. Review of systems otherwise negative. She has remained hemodynamically stable. Objective Data Objective Data Vital Signs: Vital Signs Temp Pulse Resp BP Pulse Ox O2 Del Method O2 Flow Rate 98.2 F 89 20 H 94/60 95 Nasal Cannula 5 05/26/23 10:30 05/26/23 11:30 05/26/23 11:30 05/26/23 10:30 05/26/23 11:30 05/26/23 11:30 05/26/23 11:30 Oxygen Flow Rate (L/min) 5 Oxygen Delivery Method Nasal Cannula Weight: 140 lb 3.424 oz Body Mass Index (BMI) 22.5 Intake & Output: Intake and Output for Last 24 Hours 05/24/23 05/25/23 05/26/23 23:59 23:59 23:59 Intake Total 4092.50 / 4092.50 755 / 755 Output Total 1200 / 1200 Balance 2892.50 / 2892.50 755 / 755 Medical Nutrition Assessment Dietitian: Malnutrition Criteria Met Start: 05/25/23 11:05 Freq: Status: Active Protocol: Document 05/25/23 11:05 (Rec: 05/25/23 11:05 [id number]) Nutrition Malnutrition Evidence of Malnutrition Exists Yes Malnutrition (severe): Acute Illness/Injury Evidenced By Suboptimal Energy Intake ( Severe),Weight Loss (Severe) Clinical Problem Acute Disease or Injury Related Malnutrition Etiology severe, acute malnutrition related to inadequate energy intake Signs/Symptoms as evidenced by unintentional 4.8#/3.3% wt loss x 1 week, estimated PO intake meeting < 50% of estimated energy needs x 1 week Status Active Problem Recommendation Dietitian Recommendations/Changes will liberalize diet to regular/gluten free and add 120mL ensure plus high protein 4x/day w/ medpass given evidence of acute malnutrition Lab / Micro Data 05/26/23 06:34 05/26/23 06:34 Labs: Laboratory Results - last 24 hr 05/24/23 20:41: Diff Path Review Reviewed 05/25/23 14:37: Total Bilirubin 0.30, Direct Bilirubin 0.12, AST 45 H, ALT 32, Alkaline Phosphatase 54, Lactate Dehydrogenase 246, Total Creatine Kinase 109, Total Protein 6.9, Albumin 2.1 L, Globulin 4.8 H 05/25/23 18:20: Urine Color Yellow, Urine Clarity Clear, Urine pH 7.0, Ur Specific [place] 1.005, Urine Protein 15 H, Urine Glucose (UA) Normal, Urine Ketones Negative, Urine Occult Blood Negative, Urine Nitrite Negative, Urine Bilirubin Negative, Urine Urobilinogen Normal, Ur Leukocyte Esterase Negative 05/26/23 06:34: WBC 14.0 H, RBC 3.54 L, Hgb 10.3 L, Hct 31.1 L, MCV 87.9, MCH 29.1, MCHC 33.1, RDW Std Deviation 48.4 H, RDW Coeff of Casey 14.9 H, Plt Count 282, MPV 10.4, Immature Gran % (Auto) 3.900 H, Neut % (Auto) 77.1 H, Lymph % (Auto) 8.6 L, [place] % (Auto) 9.5, Eos % (Auto) 0.3, Baso % (Auto) 0.6, Absolute Neuts (auto) 10.8 H, Absolute Lymphs (auto) 1.20, Nucleated RBC % 0, Sodium 140,Potassium 3.7, Chloride 117 H, Carbon Dioxide 17.0 L, Anion Gap 6, BUN 13, Creatinine 1.07 H, Estim Creat Clear Calc 46.45, Est GFR (MDRD) Af Amer 65, Est GFR (MDRD) Non-Af 54 L, BUN/Creatinine Ratio 12.1, Glucose 85, Calcium 8.5 Micro: Microbiology 05/25/23 09:15 Sputum, Expectorated/Coughed Gram Stain - Final 05/25/23 11:30 Urine, Clean Catch Legionella Antigen - Final 05/25/23 11:30 Urine, Clean Catch Streptococcus pneumoniae Antigen (M - Final Streptococcus pneumonia Ag 05/24/23 22:45 Mucosa - Nasopharyngeal Respiratory Panel (PCR) - Final Influenza A (Subtype H1) 05/24/23 22:45 Mucosa - Nasopharyngeal Rapid RSV (DFA) - Final 05/24/23 20:08 Nasal Secretion SARS-CoV-2 Antigen (Rapid) - Final Physical Exam Const alert, oriented x3 and no apparent distress General Appearance: cooperative HEENT normocephalic, head/scalp atraumatic, moist oral mucous membranes and oropharynxnormal Eyes PERRL and EOMs intact bilaterally Neck no lymphadenopathy and supple Lymph Lymphatic: no lymphadenopathy noted and no lymphedema noted Resp Resp Narrative: mildly diminished breath sounds bibasally, mild wheezes but no crackles. On 5L of oxygen by nasal canula Cardio regular rate, regular rhythm, S1 normal heart sound, S2 normal heart sound and no murmurs GI normal to inspection, nondistended, normoactive bowel sounds, soft to palpation,non-tender and non-distended Extremity normal capillary refill, no clubbing, cyanosis or edema and no calf tenderness General Extremity: no tenderness to palpation of joints or extremities Skin General Skin Exam: no breakdown Neuro CN's II-XII intact bilaterally, no focal motor deficits, no sensory deficits noted and deep tendon reflexes 2+ bilaterally Motor Exam: strength 5/5 throughout and general weakness Psych thought process normal and cooperative Appearance: appropriate Assessment & Plan Assessment/Plan (1) Pneumonia: QUALIFIERS: Pneumonia type: due to unspecified organism Laterality: bilateral Lung location: lower lobe of lung Qualified Code(s): J18.9 - Pneumonia, unspecified organism (2) Hypoxia: (3) Right renal mass: PLAN: Plan #Acute hypoxia due to bilateral pneumonia and influenza infection * CT chest showed bilateral pneumonia. * On IV ceftriaxone and azithromycin. Breathing treatments bronchodilators. * Titrate oxygen to maintain saturation above 90%. * Urine for strep and Legionella negative. Sputum cultures pending. Blood cultures also pending. * on amiflu for Influenza A. * #Recently diagnosed with right upper pole renal mass * Imaging done also showed a 1 cm lesion encasing within the T11 vertebral body concerning for possible metastasis in the setting of probable renal carcinoma. She does have a strong family history of breast, colon and skin cancer in her family. * Urology on board. Will benefit from MRI of the abdomen to better characterize the lesion. * MRI of the abdomen ordered. Oncology also on board. * #GABRIELLE:resolved. Cr is down to 1.07 #Elevated D-dimer: CTA of the chest was negative for any evidence of PE. Duplexof the lower extremities also negative #Hypokalemia: Will replace and trend #Hyponatremia: Resolved. #History of Sjogren syndrome: On hydroxychloroquine #Benign essential hypertension: On IV hydralazine as needed. #Hyperlipidemia: On statin DVT prophylaxis; lovenox. Charges/Coding Visit Charges Inpatient E&M: 38013 Subs Hosp L2 05/26/23 1415 <Electronically signed by Sandi Arias MD> Sandi Arias MD Cosigner Signature (if applicable): CC: ~ Signed [facility] Work Phone: 1(792) 695-380412-22-2023 Progress note Author Jason Marques [facility] May 25, 2023 4:49pm Note Date/Time May 25, 2023 10:33am [facility] Medical Records Department [address] [place] [address] Progress Note - Hospitalist 05/25/23 1032 MR#: [id number] Acct: [id number] Name: RICHELLE CARDOZO Rep #:[id number] : 1955 68 From: Jason Matos PCP: Dr. Vinny Briones MD Status:ADM IN Location: [place] [address] Reason for Visit Reason for Visit: Diagnoses Pneumonia, unspecified organism (05/25/23) Acute kidney failure, unspecified (05/25/23) Other specified disorders of kidney and ureter (05/25/23) Hypoxemia (05/25/23) Objective Data Objective Data Vital Signs: Vital Signs Temp Pulse Resp BP Pulse Ox O2 Del Method O2 Flow Rate 98.5 F 98 20 H 94/56 L 96 Nasal Cannula 2 05/25/23 09:20 05/25/23 09:20 05/25/23 09:20 05/25/23 09:20 05/25/23 09:20 05/25/23 09:20 05/25/23 09:20 Oxygen Flow Rate (L/min) 2 Oxygen Delivery Method Nasal Cannula Weight: 140 lb 3.424 oz Body Mass Index (BMI) 22.5 Intake & Output: Intake and Output for Last 24 Hours 05/23/23 05/24/23 05/25/23 23:59 23:59 23:59 Intake Total 1305 / 1305 Balance 1305 / 1305 Lab / Micro Data 05/24/23 20:41 05/24/23 20:41 Labs: Laboratory Results - last 24 hr 05/24/23 20:41: WBC 13.0 H, RBC 3.99 L, Hgb 11.5 L, Hct 34.3 L, MCV 86.0, MCH 28.8, MCHC 33.5, RDW Std Deviation 44.2 H, RDW Coeff of Casey 14.1, Plt Count 234,MPV 10.2, Immature Gran % (Auto) MOLECULAR BIOLOGY SCIENTIST, Neut % (Auto) MOLECULAR BIOLOGY SCIENTIST, Lymph % (Auto) MOLECULAR BIOLOGY SCIENTIST, [facility] [facility] %(Auto) MOLECULAR BIOLOGY SCIENTIST, Eos % (Auto) MOLECULAR BIOLOGY SCIENTIST, Baso % (Auto) MOLECULAR BIOLOGY SCIENTIST, Absolute Neuts (auto) 10.4 H, Absolute Lymphs (auto) 0.78 L, Neutrophils % (Manual) 70, Band Neutrophils % 10 H, Lymphocytes % (Manual) 6 L, Monocytes % (Manual) 14 H, Nucleated RBC % MOLECULAR BIOLOGY SCIENTIST, Diff Path Review October foll, D- Dimer Quant (PE/DVT) 2.40 H*, Sodium 128 L, Potassium 3.0 L, Chloride 98, Carbon Dioxide 22.0, Anion Gap 8, BUN 23 H, Creatinine 1.95 H, Estim Creat Clear Calc 25.49, Est GFR (MDRD) Af Amer 33 L, Est GFR (MDRD) Non-Af 27 L, BUN/Creatinine Ratio 11.8, Glucose 108 H,Calcium 8.8, Troponin I High Sens 25 05/24/23 23:43: Lactic Acid 1.4 05/25/23 05:50: MRSA (PCR) Negative Micro: Microbiology 05/24/23 22:45 Mucosa - Nasopharyngeal Respiratory Panel (PCR) - Final Influenza A (Subtype H1) 05/24/23 22:45 Mucosa - Nasopharyngeal Rapid RSV (DFA) - Final 05/24/23 20:08 Nasal Secretion SARS-CoV-2 Antigen (Rapid) - Final Radiography Diagnostic Testing: Radiology Impression Chest X-Ray 05/24/23 20:14 IMPRESSION: Mild basilar infiltrate/atelectasis bilaterally, left more than right. Electronically Signed: Xander Fraire DO at 20:31 EST , Chest CTA 05/24/23 23:59 IMPRESSION: 1. Findings of extensive bilateral lower lobe pneumonia, with lesser pneumonia in the upper lobes and right middle lobe. 2. Negative for PE. 3. Mild hilar or mediastinal adenopathy. 4. 2.2 solid mass of the right renal upper pole, most likely a small renal cell carcinoma. Urology follow-up suggested. 5. 1 cm lucent lesion within the T11 vertebral body, not definitely a benign cavernous hemangioma and correlation with bone scan or MR may be of benefit to evaluate for metastatic disease 6. Peribronchial cuffing indicating bronchial wall inflammation. Mild bilateral bronchiectasis. Nonstandard communication protocol initiated. Electronically Signed: Sandeep Lopez MD at 2:33 EST , ADDENDUM: 05/25/23 0242 IMPRESSION: 1. Findings of extensive bilateral lower lobe pneumonia, with lesser pneumonia in the upper lobes and right middle lobe. 2. Negative for PE. 3. Mild hilar or mediastinal adenopathy. 4. 2.2 solid mass of the right renal upper pole, most likely a small renal cell carcinoma. Urology follow-up suggested. 5. 1 cm lucent lesion within the T11 vertebral body, not definitely a benign cavernous hemangioma and correlation with bone scan or MR may be of benefit to evaluate for metastatic disease 6. Peribronchial cuffing indicating bronchial wall inflammation. Mild bilateral bronchiectasis. Nonstandard communication protocol initiated. N.B. : The above Results were Read Back by Sandeep Lopez MD to Steve Woods MD, and understanding confirmed on 05/25/2023 02:35:39 (ET). Electronically Signed: Sandeep Lopez MD at 2:33 EST , Physical Exam Narrative Seen and examined. Patient denies prior history of smoking in any form. No nicotine use. Denies chronic lung disease. She is short of breath on 2 L of oxygen. Although she ishoping for discharge but she is too short of breath to be discharged Denies chest pain or pressure Physical exam General: Alert, Oriented x3, Cooperative HEENT: Atraumatic, PERRLA, EOMI, Normocephalic Oral: No Gingival or Mucosal Lesions/ Ulcerations Neck: Supple, No JVD, Negative Carotid Bruits Lungs: Air entry diminished in bilateral lung bases. Bilateral expiratory rhonchi and coarse crepitations. Hypoxia. Dyspnea at rest and on exertion Cardiovascular: Regular rate, Regular Rhythm, Normal S1, Normal S2, No murmurs Abdomen: Bowel Sounds Present, Soft, Non Tender, Non-Distended : No renal angle tenderness. No suprapubic tenderness. Extremities: No edema, Capillary Refill Less than 3 Seconds Skin: No rashes, No breakdown Musculoskeletal: No Tenderness to Palpation of Joints or Extremities Neurological: Cranial nerves II-XII grossly intact, DTR 2+/4. No acute focal neurological deficit. Psych/Mental Status: Normal Affect, Appropriate. Assessment & Plan Assessment/Plan (1) Right renal mass: (2) Pneumonia: QUALIFIERS: Laterality: bilateral Lung location: lower lobe of lung Pneumonia type: due to unspecified organism Qualified Code(s): J18.9 - Pneumonia, unspecified organism (3) Hypoxia: (4) GABRIELLE (acute kidney injury): PLAN: Plan 68-year-old female came to ED for shortness of breath progressively worsening for 5 days worse with any kind of exertion. She has difficulty walking because of shortness of breath. She also has cough but no sputum production. 1. Complicated bilateral pneumonia more likely due to influenza A pneumonia with bacterial superinfection, confirmed on CT: Admit to general medical floor. CBC shows leukocytosis of 13, present on admission with neutrophilia and lymphopenia and bandemia. Urinary antigen is positive for progress and respiratory panel positive for influenza A, H1 type. Tamiflu added. Continue IV ceftriaxone and Zithromax. Lactic acid normal. MRSA PCR negative. 2. ~2.2 cm mass of the Right upper renal pole; incidentally noted and newly diagnosed with a ~1 cm lucent lesion within the T11 vertebral body also suspicious for possible metastatic disease in the setting of a strong positive family history of breast, colon and skin cancer in her mother and colon cancer in her sister: Initially, Dr. Dorsey was consulted but she states she did not see renal tumor patient therefore Dr. Longoria was consulted. He saw the patient. Currently patient creatinine is elevated BUN 23/creatinine 1.95 therefore not candidate for further contrast today. He would like to see the patient in office and then we will need outpatient workup probably MRI. Oncologist was also consulted. Carlotta saw the patient and states she will need to follow-up in the oncology office. 3. GABRIELLE on CKD stage IIIb: Patient baseline creatinine runs around 1.35-1.5. Admitted with creatinine 1.95. BUN 33. Avoid nephrotoxic agents. Patient had 1L normal saline bolus in ED and then normal saline +40 mEq of KCl at 125 mill per hour, decreased to 100 mill per hour for 1 more liter. Will reevaluate after that. Monitor kidney function. 4. Critically elevated d-dimer of 2.4 present on admission - CTA of chest negative for PE. Venous duplex negative for bilateral DVT. Lovenox 30 mg subcudaily adjusted to creatinine clearance. 5. Hypokalemia of 3 mmol/L present on admission -as mentioned above. On IV fluid. 6. Hyponatremia of 128 mmol/L present on admission adding to the pathology - Give NS IVF and then recheck BMP in the AM to document response to treatment. 7. History of Sjogren's syndrome; on hydroxychloroquine - Her connective tissuedisease is apparently well-controlled at this time. Continue hydroxychloroquineas previous. 8. Essential hypertension - Give IV hydralazine as needed for systolic blood pressure greater than 160 mmHg. Avoid potentially nephrotoxic agents. 9. Hyperlipidemia - Check lipid profile this admission. 10. GERD - Continue PPI. 11. Osteoarthritis - Stable. Give Tylenol as needed as outlined above. 12. History of cholecystectomy - Noted. 12. History of colonoscopy - Noted. 13. Remote history of ectopic ; status post tubal ligation - Noted. 14. DVT prophylaxis - Patient started on full dose Lovenox until DVT is ruled out on lower extremity Doppler to be done in the a.m. Avoid SCD's with elevatedD-dimer suggesting there may be a clot present. Total time of the visit including total time spent in counseling or coordinationof care, (more than 50% of the total time, spent in obtaining medical information from nurses and other ancillary care providers,explaining to the patient about labs, imaging, diagnosis and management of active complex medical conditions), discussion with urologist and oncologist, and management of renal mass complex bilateral pneumonia, review of labs and imaging is 40 minutes. Laboratory Results 05/24/23 20:41: WBC 13.0 H, RBC 3.99 L, Hgb 11.5 L, Hct 34.3 L, MCV 86.0, MCH 28.8, MCHC 33.5, RDW Std Deviation 44.2 H, RDW Coeff of Casey 14.1, Plt Count 234,MPV 10.2, Immature Gran % (Auto) MOLECULAR BIOLOGY SCIENTIST, Neut % (Auto) MOLECULAR BIOLOGY SCIENTIST, Lymph % (Auto) MOLECULAR BIOLOGY SCIENTIST, [facility] %(Auto) MOLECULAR BIOLOGY SCIENTIST, Eos % (Auto) MOLECULAR BIOLOGY SCIENTIST, Baso % (Auto) MOLECULAR BIOLOGY SCIENTIST, Absolute Neuts (auto) 10.4 H, Absolute Lymphs (auto) 0.78 L, Neutrophils % (Manual) 70, Band Neutrophils % 10 H, Lymphocytes % (Manual) 6 L, Monocytes % (Manual) 14 H, Nucleated RBC % MOLECULAR BIOLOGY SCIENTIST, Diff Path Review Reviewed, D- Dimer Quant (PE/DVT) 2.40 H*, Sodium 128 L, Potassium 3.0 L, Chloride 98, Carbon Dioxide 22.0, Anion Gap 8, BUN 23 H, Creatinine 1.95 H, Estim Creat Clear Calc 25.49, Est GFR (MDRD) Af Amer 33 L, Est GFR (MDRD) Non-Af 27 L, BUN/Creatinine Ratio 11.8, Glucose 108 H,Calcium 8.8, Troponin I High Sens 25 05/24/23 23:43: Lactic Acid 1.4 05/25/23 05:50: MRSA (PCR) Negative 05/25/23 14:37: Total Bilirubin 0.30, Direct Bilirubin 0.12, AST 45 H, ALT 32, Alkaline Phosphatase 54, Lactate Dehydrogenase 246, Total Protein 6.9, Albumin 2.1 L, Globulin 4.8 H Microbiology Past 72 Hours 05/25/23 09:15 Sputum, Expectorated/Coughed Gram Stain - Final 05/25/23 11:30 Urine, Clean Catch Legionella Antigen - Final 05/25/23 11:30 Urine, Clean Catch Streptococcus pneumoniae Antigen (M - Final Streptococcus pneumonia Ag 05/24/23 22:45 Mucosa - Nasopharyngeal Respiratory Panel (PCR) - Final Influenza A (Subtype H1) 05/24/23 22:45 Mucosa - Nasopharyngeal Rapid RSV (DFA) - Final 05/24/23 20:08 Nasal Secretion SARS-CoV-2 Antigen (Rapid) - Final Charges/Coding Visit Charges Inpatient E&M: 31358 Subs Hosp L3 05/25/23 1649 <Electronically signed by Jason Marques MD> Cosigner Signature (if applicable): CC: ~ Signed [facility] Work Phone: 1(990) 936-984712-22-2023 Consult note Author Garret Longoria [facility] May 25, 2023 2:27pm Note Date/Time May 25, 2023 2:27pm [facility] Medical Records Department [address] [place] [address] Consultation - Urology 05/25/23 1426 MR#: [id number] Acct: [id number] Name: RICHELLE CARDOZO Rep #:[id number] : 1955 68 From: Garret Longoria MD PCP: Dr. Vinny Briones MD Status:ADM IN Location: [facility] [id number] HPI Consult Data Date of Consult: 05/25/23 HPI Narrative Reason for Consultation: Right renal mass HPI Narrative: RICHELLE CARDOZO, is a 68 F who was admitted to the hospital with pneumonia she had a CT scan with contrast of the chest demonstrated consolidation pneumonia bilaterally and also demonstrated what could be a mass in the right kidney, the CT scan did not get to the entire kidney. I went spoke to the patient let her know about the abnormal finding on the right kidney recommended that we do outpatient follow-up I want to see her back in the office and at that point we will probably recheck her creatinine probably just do an MRI of the kidney to avoid contrast and we could either watch the mass or surgical intervention by think I want to see her first in the office and then order the MRI of the kidney. At this point she is still recovering from her pneumonia and no urgent intervention is necessary call me with questions and she can follow-up as an outpatient [facility] Medical History (Updated 05/25/23 @ 13:28 by Carlotta Head MOLECULAR BIOLOGY SCIENTIST, MOLECULAR BIOLOGY SCIENTIST-C) Bone lesion GERD (gastroesophageal reflux disease) Hemorrhoid HTN (hypertension) Mixed hyperlipidemia Osteoarthritis Sjogren's disease Home Medications calcium carbonate 600 mg-vitamin D3 20 mcg (800 unit) tablet 1 tab PO BIDCM 03/14/13 [History Last Taken 09/26/17] fluticasone propionate 50 mcg/actuation nasal spray,suspension 2 spray NASAL DAILY 03/14/13 [History Last Taken 09/26/17] omeprazole 20 mg capsule,delayed release 20 mg PO DAILY 03/14/13 [History Last Taken 12/12/18 06:00] montelukast 10 mg tablet 10 mg PO DAILY ALLERGIES 09/23/14 [History Last Taken 09/26/17] cholecalciferol (vitamin D3) 50 mcg (2,000 unit) capsule 2,000 unit PO DAILY 09/20/17 [History Last Taken 09/26/17] hydroxychloroquine 200 mg tablet 200 mg PO DAILY 05/24/23 [History Last Taken Unknown] Allergy/AdvReac Type Severity Reaction Status Date / Time gluten Allergy Food Verified 05/25/23 10:47 Allergy amoxicillin AdvReac Nausea Verified 05/24/23 20:05 doxycycline AdvReac Other Verified 05/24/23 20:05 erythromycin base AdvReac Nausea Verified 05/24/23 20:05 [Erythromycin Base] hydrocodone bitartrate AdvReac Vomiting Verified 05/24/23 20:05 [From Vicodin] Sulfa (Sulfonamide AdvReac Nausea Verified 05/24/23 20:05 Antibiotics) Family History Mother Breast cancer Colon cancer Cancer skin CVA (cerebral vascular accident) Father CHF (congestive heart failure) Sister Colon cancer Surgical History S/P cholecystectomy S/P colonoscopy S/P ectopic S/P tubal ligation Social History Smoking Status: Never smoker Medical Records Data Medical Nutrition Assessment Dietitian: Malnutrition Criteria Met Start: 05/25/23 11:05 Freq: Status: Active Protocol: Document 05/25/23 11:05 (Rec: 05/25/23 11:05 [id number]) Nutrition Malnutrition Evidence of Malnutrition Exists Yes Malnutrition (severe): Acute Illness/Injury Evidenced By Suboptimal Energy Intake ( Severe),Weight Loss (Severe) Clinical Problem Acute Disease or Injury Related Malnutrition Etiology severe, acute malnutrition related to inadequate energy intake Signs/Symptoms as evidenced by unintentional 4.8#/3.3% wt loss x 1 week, estimated PO intake meeting < 50% of estimated energy needs x 1 week Status Active Problem Recommendation Dietitian Recommendations/Changes will liberalize diet to regular/gluten free and add 120mL ensure plus high protein 4x/day w/ medpass given evidence of acute malnutrition Lab / Micro Data 05/24/23 20:41 05/24/23 20:41 Labs: Laboratory Results - last 24 hr 05/24/23 20:41: WBC 13.0 H, RBC 3.99 L, Hgb 11.5 L, Hct 34.3 L, MCV 86.0, MCH 28.8, MCHC 33.5, RDW Std Deviation 44.2 H, RDW Coeff of Casey 14.1, Plt Count 234,MPV 10.2, Immature Gran % (Auto) MOLECULAR BIOLOGY SCIENTIST, Neut % (Auto) MOLECULAR BIOLOGY SCIENTIST, Lymph % (Auto) MOLECULAR BIOLOGY SCIENTIST, [facility] %(Auto) MOLECULAR BIOLOGY SCIENTIST, Eos % (Auto) MOLECULAR BIOLOGY SCIENTIST, Baso % (Auto) MOLECULAR BIOLOGY SCIENTIST, Absolute Neuts (auto) 10.4 H, Absolute Lymphs (auto) 0.78 L, Neutrophils % (Manual) 70, Band Neutrophils % 10 H, Lymphocytes % (Manual) 6 L, Monocytes % (Manual) 14 H, Nucleated RBC % MOLECULAR BIOLOGY SCIENTIST, Diff Path Review Reviewed, D- Dimer Quant (PE/DVT) 2.40 H*, Sodium 128 L, Potassium 3.0 L, Chloride 98, Carbon Dioxide 22.0, Anion Gap 8, BUN 23 H, Creatinine 1.95 H, Estim Creat Clear Calc 25.49, Est GFR (MDRD) Af Amer 33 L, Est GFR (MDRD) Non-Af 27 L, BUN/Creatinine Ratio 11.8, Glucose 108 H, Calcium 8.8, Troponin I High Sens 25 05/24/23 23:43: Lactic Acid 1.4 05/25/23 05:50: MRSA (PCR) Negative Micro: Microbiology 05/25/23 09:15 Sputum, Expectorated/Coughed Gram Stain - Final 05/25/23 11:30 Urine, Clean Catch Legionella Antigen - Final 05/25/23 11:30 Urine, Clean Catch Streptococcus pneumoniae Antigen (M - Final Streptococcus pneumonia Ag 05/24/23 22:45 Mucosa - Nasopharyngeal Respiratory Panel (PCR) - Final Influenza A (Subtype H1) 05/24/23 22:45 Mucosa - Nasopharyngeal Rapid RSV (DFA) - Final 05/24/23 20:08 Nasal Secretion SARS-CoV-2 Antigen (Rapid) - Final Imagaing Radiology Impression Chest X-Ray 05/24/23 20:14 IMPRESSION: Mild basilar infiltrate/atelectasis bilaterally, left more than right. Electronically Signed: Xander Fraire DO at 20:31 EST Reading Location ID and State: [facility] / [place] Tel [phone], Service support , Chest CTA 05/24/23 23:59 IMPRESSION: 1. Findings of extensive bilateral lower lobe pneumonia, with lesser pneumonia in the upper lobes and right middle lobe. 2. Negative for PE. 3. Mild hilar or mediastinal adenopathy. 4. 2.2 solid mass of the right renal upper pole, most likely a small renal cell carcinoma. Urology follow-up suggested. 5. 1 cm lucent lesion within the T11 vertebral body, not definitely a benign cavernous hemangioma and correlation with bone scan or MR may be of benefit to evaluate for metastatic disease 6. Peribronchial cuffing indicating bronchial wall inflammation. Mild bilateral bronchiectasis. Nonstandard communication protocol initiated. Electronically Signed: Sandeep Lopez MD at 2:33 EST , ADDENDUM: 05/25/23 0242 IMPRESSION: 1. Findings of extensive bilateral lower lobe pneumonia, with lesser pneumonia in the upper lobes and right middle lobe. 2. Negative for PE. 3. Mild hilar or mediastinal adenopathy. 4. 2.2 solid mass of the right renal upper pole, most likely a small renal cell carcinoma. Urology follow-up suggested. 5. 1 cm lucent lesion within the T11 vertebral body, not definitely a benign cavernous hemangioma and correlation with bone scan or MR may be of benefit to evaluate for metastatic disease 6. Peribronchial cuffing indicating bronchial wall inflammation. Mild bilateral bronchiectasis. Nonstandard communication protocol initiated. N.B. : The above Results were Read Back by Sandeep Lopez MD to Steve Woods MD, and understanding confirmed on 05/25/2023 02:35:39 (ET). Electronically Signed: Sandeep Lopez MD at 2:33 EST , 05/25/23 1427 <Electronically signed by Garret Longoria MD> Cosigner Signature (if applicable): CC: KORTNEY Head; Dr. Darius Zepeda MD; Dr. Darius Garcia DO; Dr. Vinny Briones MD; Dr. Ryley Garner MD; Dr. Garret Longoria MD; Dr. Steven Francisco MD; Dr. Benedicto Mccain MD; Dr. Dontae Handy MD; Dr. Brent Augustin MD; Dr. Derek Obrien, DO~ Signed [facility] Work Phone: 1(159) 605-902512-22-2023 Consult note Author Carlotta Head [facility] May 25, 2023 1:56pm Note Date/Time May 25, 2023 12:40pm [facility] [address] [place] [address] Consultation - Oncology IP 05/25/23 1231 MR#: [id number] Acct: [id number] Name: RICHELLE CARDOZO Rep #:[id number] : 1955 68 From: Carlotta Head NP MOLECULAR BIOLOGY SCIENTIST-C PCP: Dr. Vinny Briones MD Status:ADM IN Location: [place] [address] Assessment & Plan Assessment/Plan (1) Right renal mass: Status: Acute Code(s): N28.89 - Other specified disorders of kidney and ureter Plan: A 3 cm simple cyst and a 2.2 cm solid nodule involving upper pole of right kidney identified incidentally on CTA chest performed 05/24/23. Obtain dedicated MRI of the abdomen and pelvis and LDH, LFTs and UA. Await urology consultation. (2) Bone lesion: Status: Acute Code(s): M89.9 - Disorder of bone, unspecified Plan: 1 cm lucency involving T11 vertebral body identified incidentally on CTA chest performed 05/24/23. Obtain MRI thoracic spine. Case discussed with Dr. Garner, who was in agreement with the aforementioned plan. Will continue to follow this admission, however if recovery from GABRIELLE and pneumonia allow for discharge, MRI imaging and additional investigations of renal mass and bone lesion, ie bone scan, can be performed in the out patient setting. Follow up with [facility] upon discharge. Patient was provided [facility] contact information. HPI Consult Data Date of Service:: 05/25/23 PCP / Referring Provider: Dr. Vinny Briones MD Attending: Dr. Jason Marques MD Chief Complaint Chief Complaint: Renal mass History of Present Illness History of Present Illness: Ms. Cardozo is a 68 year old woman with a PMH significant for Sjorgen's, GERD, HTN,osteoarthritis and hyperlipidemia, who reported to [facility] ED on 05/24/23 with c/o SOB x 5 days. She was found to have neutrophilic leukocytosis, mild anemia (hgb 11.5), GABRIELLE as evidenced by Cr 1.95 (baseline 1.4) with mild to moderate electrolyte derangements, and elevated D dimer. A CTA chest was performed which demonstrated bilateral lower lobe pneumonia, mild hilar and mediastinal adenopathy, and incidentally noted a 2.2 (?cm) right renal mass involving the upper pole and a 1 cm lucency involving the body of T11. Thus, she was admitted for management of pneumonia and GABRIELLE. Interval History Interval History: Upon entering the room, the patient is sitting upright on the side of the bed. Patient verbalizes her understanding of incidentally discovered renal mass. States she was in her usual state of health until 6 days ago, when she developedcough and SOB. Mammogram and colonoscopy are up to date (screenings were performed at [facility]). Notably she was called back for US and additional views of right breast but was told area is a cyst. Per pt self report, area is not palpable on self exam nor clinical breast exam. Specifically denies unintentional weight loss, CP, back pain, changes in her bowel habits, swelling/pain of her extremities, and numbness/tingling. BLE venous dopplers are pending to address elevated D dimer. Has not yet met with urology. Advanced Directives Power of Client Support Professional: No Living Will: No [facility] Medical History (Updated 05/25/23 @ 13:28 by Carlotta Head NP, MOLECULAR BIOLOGY SCIENTIST-C) Bone lesion GERD (gastroesophageal reflux disease) Hemorrhoid HTN (hypertension) Mixed hyperlipidemia Osteoarthritis Sjogren's disease Home Medications calcium carbonate 600 mg-vitamin D3 20 mcg (800 unit) tablet 1 tab PO BIDCM 03/14/13 [History Last Taken 09/26/17] fluticasone propionate 50 mcg/actuation nasal spray,suspension 2 spray NASAL DAILY 03/14/13 [History Last Taken 09/26/17] omeprazole 20 mg capsule,delayed release 20 mg PO DAILY 03/14/13 [History Last Taken 12/12/18 06:00] montelukast 10 mg tablet 10 mg PO DAILY ALLERGIES 09/23/14 [History Last Taken 09/26/17] cholecalciferol (vitamin D3) 50 mcg (2,000 unit) capsule 2,000 unit PO DAILY 09/20/17 [History Last Taken 09/26/17] hydroxychloroquine 200 mg tablet 200 mg PO DAILY 05/24/23 [History Last Taken Unknown] Allergy/AdvReac Type Severity Reaction Status Date / Time gluten Allergy Food Verified 05/25/23 10:47 Allergy amoxicillin AdvReac Nausea Verified 05/24/23 20:05 doxycycline AdvReac Other Verified 05/24/23 20:05 erythromycin base AdvReac Nausea Verified 05/24/23 20:05 [Erythromycin Base] hydrocodone bitartrate AdvReac Vomiting Verified 05/24/23 20:05 [From Vicodin] Sulfa (Sulfonamide AdvReac Nausea Verified 05/24/23 20:05 Antibiotics) Family History Mother Breast cancer Colon cancer Cancer skin CVA (cerebral vascular accident) Father CHF (congestive heart failure) Sister Colon cancer Surgical History S/P cholecystectomy S/P colonoscopy S/P ectopic S/P tubal ligation Social History Smoking Status: Never smoker ROS ROS Narrative Negative except as documented in the interval HPI Physical Exam Const alert, oriented x3 and average body habitus General Appearance: anxious and ill appearing Positive for acutely; Negative forin distress HEENT normocephalic and head/scalp atraumatic Eyes conjunctivae normal and no scleral icterus Neck no lymphadenopathy and supple Chest Chest Narrative: Breast exam deferred per pt Resp Auscultation: rhonchi throughout and diminished lung sounds Cardio regular rate and regular rhythm GI normal to inspection, nondistended, normoactive bowel sounds, soft to palpation,non-tender and non-distended Back/Spine no CVA tenderness and no thoracic nor lumbar tenderness Extremity normal to inspection, full ROM and no clubbing, cyanosis or edema Neuro oriented x3, CN's II-XII intact bilaterally, moves all extremities and no focal motor deficits Speech: speech normal Motor Exam: strength 5/5 throughout Psych Attitude: engaged Mood & Affect: anxious Attention / Concentration: attention grossly intact and concentration grossly intact Vital Signs Temperature 97.7 F L 05/25/23 11:26 Temperature Source Oral 05/25/23 11:26 Pulse Rate 86 05/25/23 11:26 Respiratory Rate 18 05/25/23 11:26 Respiratory Effort Short of Breath 05/24/23 22:42 Respiratory Pattern Tachypnea 05/25/23 06:45 Blood Pressure 93/58 L 05/25/23 11:26 Blood Pressure Mean 69 05/25/23 11:26 Blood Pressure Source Monitor 05/25/23 11:26 Blood Pressure Position Semi-Fowlers 05/25/23 11:26 Blood Pressure Location Right Arm 05/25/23 11:26 Pulse Ox 96 05/25/23 11:26 Oxygen Delivery Method Nasal Cannula 05/25/23 11:26 Oxygen Flow Rate (L/min) 2 05/25/23 11:26 Laboratory Results - last 24 hr 05/24/23 20:41: WBC 13.0 H, RBC 3.99 L, Hgb 11.5 L, Hct 34.3 L, MCV 86.0, MCH 28.8, MCHC 33.5, RDW Std Deviation 44.2 H, RDW Coeff of Casey 14.1, Plt Count 234,MPV 10.2, Immature Gran % (Auto) MOLECULAR BIOLOGY SCIENTIST, Neut % (Auto) MOLECULAR BIOLOGY SCIENTIST, Lymph % (Auto) MOLECULAR BIOLOGY SCIENTIST, [facility] %(Auto) MOLECULAR BIOLOGY SCIENTIST, Eos % (Auto) MOLECULAR BIOLOGY SCIENTIST, Baso % (Auto) MOLECULAR BIOLOGY SCIENTIST, Absolute Neuts (auto) 10.4 H, Absolute Lymphs (auto) 0.78 L, Neutrophils % (Manual) 70, Band Neutrophils % 10 H, Lymphocytes % (Manual) 6 L, Monocytes % (Manual) 14 H, Nucleated RBC % MOLECULAR BIOLOGY SCIENTIST, Diff Path Review October foll, D- Dimer Quant (PE/DVT) 2.40 H*, Sodium 128 L, Potassium 3.0 L, Chloride 98, Carbon Dioxide 22.0, Anion Gap 8, BUN 23 H, Creatinine 1.95 H, Estim Creat Clear Calc 25.49, Est GFR (MDRD) Af Amer 33 L, Est GFR (MDRD) Non-Af 27 L, BUN/Creatinine Ratio 11.8, Glucose 108 H, Calcium 8.8, Troponin I High Sens 25 05/24/23 23:43: Lactic Acid 1.4 05/25/23 05:50: MRSA (PCR) Negative Microbiology 05/25/23 11:30 Urine, Clean Catch Legionella Antigen - Final 05/25/23 11:30 Urine, Clean Catch Streptococcus pneumoniae Antigen (M - Final Streptococcus pneumonia Ag 05/24/23 22:45 Mucosa - Nasopharyngeal Respiratory Panel (PCR) - Final Influenza A (Subtype H1) 05/24/23 22:45 Mucosa - Nasopharyngeal Rapid RSV (DFA) - Final 05/24/23 20:08 Nasal Secretion SARS-CoV-2 Antigen (Rapid) - Final Diagnostic Data Chest X-Ray 05/24/23 20:14 IMPRESSION: Mild basilar infiltrate/atelectasis bilaterally, left more than right. Electronically Signed: Xander Fraire DO at 20:31 EST , Chest CTA 05/24/23 23:59 IMPRESSION: 1. Findings of extensive bilateral lower lobe pneumonia, with lesser pneumonia in the upper lobes and right middle lobe. 2. Negative for PE. 3. Mild hilar or mediastinal adenopathy. 4. 2.2 solid mass of the right renal upper pole, most likely a small renal cell carcinoma. Urology follow-up suggested. 5. 1 cm lucent lesion within the T11 vertebral body, not definitely a benign cavernous hemangioma and correlation with bone scan or MR may be of benefit to evaluate for metastatic disease 6. Peribronchial cuffing indicating bronchial wall inflammation. Mild bilateral bronchiectasis. Nonstandard communication protocol initiated. Electronically Signed: Sandeep Lopez MD at 2:33 EST , ADDENDUM: 05/25/23 0242 IMPRESSION: 1. Findings of extensive bilateral lower lobe pneumonia, with lesser pneumonia in the upper lobes and right middle lobe. 2. Negative for PE. 3. Mild hilar or mediastinal adenopathy. 4. 2.2 solid mass of the right renal upper pole, most likely a small renal cell carcinoma. Urology follow-up suggested. 5. 1 cm lucent lesion within the T11 vertebral body, not definitely a benign cavernous hemangioma and correlation with bone scan or MR may be of benefit to evaluate for metastatic disease 6. Peribronchial cuffing indicating bronchial wall inflammation. Mild bilateral bronchiectasis. Nonstandard communication protocol initiated. N.B. : The above Results were Read Back by Sandeep Lopez MD to Steve Woods MD, and understanding confirmed on 05/25/2023 02:35:39 (ET). Electronically Signed: Sandeep Lopez MD at 2:33 EST , 05/25/23 1356 <Electronically signed by Carlotta Head MOLECULAR BIOLOGY SCIENTIST MOLECULAR BIOLOGY SCIENTIST-C> CC: MOLECULAR BIOLOGY SCIENTIST-C Carlotta Head; Dr. Darius Zepeda MD; Dr. Darius Garcia DO; Dr. Vinny Briones MD; Dr. Ryley Garner MD; Dr. Garret Longoria MD; Dr. Steven Francisco MD; Dr. Benedicto Mccain MD; Dr. Dontae Handy MD; Dr. Brent Augustin MD; Dr. Derek Obrien DO ~ Signed [facility] Work Phone: 1(627) 502-750312-22-2023 Discharge summary Author Steve Woods [facility] May 25, 2023 8:02am Note Date/Time May 24, 2023 10:27pm [facility] Medical Records Department [address] [place] [address] Emergency Department Summary 05/24/23 MR#: [id number] Acct: [id number] Name: RICHELLE CARDOZO BETO Rep #:[id number] : 1955 68 From: Steve Art PCP: Dr. Vinny Briones MD Status:ADM IN Location: [place] [id number] HPI History of Present Illness Chief Complaint: Shortness of Breath Informant: patient Onset/Context/Timing Onset: Days (5) Timing: Continuous Quality: Positive for Dyspnea on exertion Worsened by: Exertion Relieved by: Rest Associated Symptoms cough; Negative for rhinorrhea, post nasal drip, ear pain, fever, sore throat, chills, clear sputum, white sputum, yellow sputum or green sputum Chest Pain: Positive for None Narrative Narrative: Patient presents with shortness of breath that has been getting worse over the last 5 days. Patient states it is gradually getting worse. Patient states her breathing is worse with any exertion. Patient states she is having difficulty walking from the kitchen to the living room without having to stop and catch herbreath. Patient admits to a cough but denies any sputum production. Patient denies any fevers or chills. Patient denies any sore throat or rhinorrhea. Patient denies any chest pain. Patient does admit to some nausea but denies anyvomiting. PE Risk Factors: Negative for Cancer, OCP + Smoking + > 35, Prior DVT or PE, Recent immobilization, Recent surgery or Recent travel [facility] Medical History (Updated 05/25/23 @ 02:[address] Steve Woods, DO) GERD (gastroesophageal reflux disease) Hemorrhoid HTN (hypertension) Mixed hyperlipidemia Osteoarthritis Sjogren's disease Home Medications calcium carbonate 600 mg-vitamin D3 20 mcg (800 unit) tablet 1 tab PO BIDCM 03/14/13 [History Last Taken 09/26/17] fluticasone propionate 50 mcg/actuation nasal spray,suspension 2 spray NASAL DAILY 03/14/13 [History Last Taken 09/26/17] omeprazole 20 mg capsule,delayed release 20 mg PO DAILY 03/14/13 [History Last Taken 12/12/18 06:00] montelukast 10 mg tablet 10 mg PO DAILY ALLERGIES 09/23/14 [History Last Taken 09/26/17] cholecalciferol (vitamin D3) 50 mcg (2,000 unit) capsule 2,000 unit PO DAILY 09/20/17 [History Last Taken 09/26/17] hydroxychloroquine 200 mg tablet 200 mg PO DAILY 05/24/23 [History Last Taken Unknown] Allergy/AdvReac Type Severity Reaction Status Date / Time amoxicillin AdvReac Nausea Verified 05/24/23 20:05 doxycycline AdvReac Other Verified 05/24/23 20:05 erythromycin base AdvReac Nausea Verified 05/24/23 20:05 [Erythromycin Base] hydrocodone bitartrate AdvReac Vomiting Verified 05/24/23 20:05 [From Vicodin] Sulfa (Sulfonamide AdvReac Nausea Verified 05/24/23 20:05 Antibiotics) Family History Mother Breast cancer Colon cancer Cancer skin CVA (cerebral vascular accident) Father CHF (congestive heart failure) Sister Colon cancer Surgical History S/P cholecystectomy S/P colonoscopy S/P ectopic S/P tubal ligation Social History Smoking Status: Never smoker ROS ROS ED Constitutional Constitutional ED: Denies chills or fever(s) Eyes Eyes: Denies blurry vision or change in vision ENT ENT ED: Denies rhinorrhea or sore throat Cardiovascular Cardiovascular: Denies chest pain or palpitations Respiratory/Chest Respiratory/Chest: Reports cough and dyspnea Gastrointestinal Gastrointestinal: Reports nausea; Denies vomiting Genitourinary Genitourinary ED: Denies dysuria or hematuria Musculoskeletal Musculoskeletal: Reports back pain; Denies neck pain Integumentary Denies abscess or rash Neurologic Neurologic: Denies headache(s) or weakness Allergic/Immunologic Allergic/Immunologic ED: Denies mouth swelling or urticaria EXAM Physical Exam Const Vital Signs: 05/24/23 20:02 05/24/23 22:03 05/24/23 22:03 Temperature 97.9 F Temperature Source Temporal Pulse Rate 114 H Respiratory Rate 18 22 H Respiratory Effort Respiratory Pattern Blood Pressure 99/60 Blood Pressure Mean 73 Pulse Ox 92 92 92 Oxygen Delivery Method Room Air Room Air Room Air Oxygen Flow Rate (L/min) 05/24/23 22:40 05/24/23 22:42 05/24/23 22:49 Temperature Temperature Source Pulse Rate 94 90 Respiratory Rate 24 H 18 Respiratory Effort Short of Breath Respiratory Pattern Tachypnea Normal Blood Pressure 108/68 Blood Pressure Mean 81 Pulse Ox 91 Oxygen Delivery Method Room Air Nasal Cannula Oxygen Flow Rate (L/min) 05/24/23 23:46 05/24/23 23:47 05/25/23 02:45 Temperature Temperature Source Pulse Rate 100 97 104 H Respiratory Rate 22 H 22 H 23 H Respiratory Effort Respiratory Pattern Blood Pressure 98/61 105/69 107/68 Blood Pressure Mean 73 81 81 Pulse Ox 87 93 93 Oxygen Delivery Method Room Air Nasal Cannula Nasal Cannula Oxygen Flow Rate (L/min) 2 2 MDM MDM MDM Narrative Medical decision making narrative: Differential diagnosis includes pneumonia, pneumothorax, congestive heart failure, viral upper respiratory infection, bronchitis, and pulmonary embolism. EKG will be obtained to assess for cardiac dysrhythmia and cardiac ischemia. Chest x-ray will be obtained to assess for pneumonia and pneumothorax. CBC willbe obtained to assess for leukocytosis and anemia. Basic metabolic profile willbe obtained to assess for electrolyte abnormality and renal function. High-sensitivity troponin will be obtained to assess for cardiac ischemia. COVID-19 rapid antigen will be obtained to assess for COVID-19 infection. D-dimer will be obtained to assess for pulmonary embolism. Lactate will be obtained to assess for sepsis. Blood cultures will be obtained to assess for sepsis. Lab Data Lab results narrative: CBC was reviewed. There is a mild leukocytosis of 13.0. Hemoglobin was 11.5 and hematocrit 34.3. Platelets were normal. Basic metabolic profile was reviewed. Sodium was slightly low at 128 and potassium was 3.0. BUN was 23 andcreatinine was 1.95. These are slightly increased from previous results. High-sensitivity troponin was reviewed and was normal at 25. COVID-19 rapid antigen was reviewed and was negative. Lactate was reviewed and was normal at 1.4. D-dimer was reviewed and was elevated at 2.4. Labs: Laboratory Results - last 24 hr 05/24/23 05/24/23 20:41 23:43 WBC 13.0 H RBC 3.99 L Hgb 11.5 L Hct 34.3 L MCV 86.0 MCH 28.8 MCHC 33.5 RDW Std Deviation 44.2 H RDW Coeff of Casey 14.1 Plt Count 234 MPV 10.2 Immature Gran % (Auto) MOLECULAR BIOLOGY SCIENTIST Neut % (Auto) MOLECULAR BIOLOGY SCIENTIST Lymph % (Auto) MOLECULAR BIOLOGY SCIENTIST [facility] % (Auto) MOLECULAR BIOLOGY SCIENTIST Eos % (Auto) MOLECULAR BIOLOGY SCIENTIST Baso % (Auto) MOLECULAR BIOLOGY SCIENTIST Absolute Neuts (auto) 10.4 H Absolute Lymphs (auto) 0.78 L Neutrophils % (Manual) 70 Band Neutrophils % 10 H Lymphocytes % (Manual) 6 L Monocytes % (Manual) 14 H Nucleated RBC % MOLECULAR BIOLOGY SCIENTIST Diff Path Review May foll D-Dimer Quant (PE/DVT) 2.40 H* Sodium 128 L Potassium 3.0 L Chloride 98 Carbon Dioxide 22.0 Anion Gap 8 BUN 23 H Creatinine 1.95 H Estim Creat Clear Calc 25.49 Est GFR (MDRD) Af Amer 33 L Est GFR (MDRD) Non-Af 27 L BUN/Creatinine Ratio 11.8 Glucose 108 H Lactic Acid 1.4 Calcium 8.8 Troponin I High Sens 25 Radiography Diagnostic Testing: Clinical Impression(s) from Imaging Studies Chest X-Ray 05/24/23 20:14 IMPRESSION: Mild basilar infiltrate/atelectasis bilaterally, left more than right. Electronically Signed: Xander Fraire DO at 20:31 EST , Chest CTA 05/24/23 23:59 IMPRESSION: 1. Findings of extensive bilateral lower lobe pneumonia, with lesser pneumonia in the upper lobes and right middle lobe. 2. Negative for PE. 3. Mild hilar or mediastinal adenopathy. 4. 2.2 solid mass of the right renal upper pole, most likely a small renal cell carcinoma. Urology follow-up suggested. 5. 1 cm lucent lesion within the T11 vertebral body, not definitely a benign cavernous hemangioma and correlation with bone scan or MR may be of benefit to evaluate for metastatic disease 6. Peribronchial cuffing indicating bronchial wall inflammation. Mild bilateral bronchiectasis. Nonstandard communication protocol initiated. Electronically Signed: Sandeep Lopez MD at 2:33 EST , ADDENDUM: 05/25/23 0242 IMPRESSION: 1. Findings of extensive bilateral lower lobe pneumonia, with lesser pneumonia in the upper lobes and right middle lobe. 2. Negative for PE. 3. Mild hilar or mediastinal adenopathy. 4. 2.2 solid mass of the right renal upper pole, most likely a small renal cell carcinoma. Urology follow-up suggested. 5. 1 cm lucent lesion within the T11 vertebral body, not definitely a benign cavernous hemangioma and correlation with bone scan or MR may be of benefit to evaluate for metastatic disease 6. Peribronchial cuffing indicating bronchial wall inflammation. Mild bilateral bronchiectasis. Nonstandard communication protocol initiated. N.B. : The above Results were Read Back by Sandeep Lopez MD to Steve Woods MD, and understanding confirmed on 05/25/2023 02:35:39 (ET). Electronically Signed: Sandeep Lopez MD at 2:33 EST , Chest x-ray was obtained. On my independent interpretation, there are bibasilarinfiltrates, worse on the left. There is no cardiomegaly noted. Bony thorax isnormal. There is no pneumothorax noted. Radiologist also interpreted the x- rayand agrees. Because of the elevated D-dimer, CTA of the chest was obtained. There is no evidence of pulmonary embolism or aortic dissection. There is bilateral lower lobe pneumonia and lesser pneumonia in the upper lobes and right middle lobe. There is also a 2.2 cm solid mass in the right renal upper pole that requires urology follow-up. There is also a 1 cm lucent lesion in the T11 vertebral body it could be a cavernous hemangioma or metastatic disease. This was interpreted by the radiologist was also independently reviewed by myself. EKG Initial EKG: Attestation: I personally reviewed and interpreted this EKG as follows: Interpretation: Sinus Rhythm and Non-Specific ST Changes Comments: EKG was obtained. On my independent interpretation, it shows normal sinus rhythm with a rate of 94. [place] interval is normal at 158 ms. QRS interval was slightly prolonged at 126 ms. QTc interval was 480 ms. There is left axis deviation at - 47. There are nonspecific ST-T wave changes and left ventricular hypertrophy. This was unchanged compared to previous EKG dated 12/15/2022. Prior EKG tracings: available for review Prior: Unchanged (12/15/2022) Treatment and Re-Evaluation :: Patient was given a DuoNeb aerosol here. Patient was feeling somewhat better onreevaluation. Patient was now able to talk in complete sentences without dyspnea. Patient was advised of her findings. Patient was started on Rocephin and Zithromax. Case was discussed with the hospitalist for admission. He will admit the patient to [facility]. Patient understood and was agreeable with the plan. All questions were answered. Discharge Plan Dx/Rx/DC Orders Clinical Impression: Hypoxia, Pneumonia, Right renal mass Disposition Disposition: Acute Care Hospital [facility] What to do if you have Problems For any increased pain, shortness of breath, bleeding, nausea or vomiting, chestpain, or any unexpected problems, contact your Primary Care Provider. Call [facility] ([phone]) or report to the closest Emergency Room. Call 911 if necessary. 05/25/23 08 <Electronically signed by Steve Woods DO> Cosigner Signature (if applicable): CC: Dr. Vinny Briones MD ~ Signed [facility] Work Phone: 1(258) 881-936712-22-2023 NoteHNO ID: [id number] Author: Anni Antonio LPN Service: ? Author Type: LICENSED NURSE Type: Progress Notes Filed: 05/25/2023 9:55 AM Note Text: Scan on 05/25/2023 8:14 AM by ProviderKofi PA-C: Consultation - Emergency Medicine Scan on 05/25/2023 2:49 AM by ProviderKofi PA-C: CT Scan Scan on 05/25/2023 2:38 AM by Kofi Lilly PA-C: [facility] History and physical note Author Darius Plummer [facility] May 25, 2023 6:11am Note Date/Time May 25, 2023 3:01am [facility] Medical Records Department [address] [place] [id number] H&P Exam - Hospitalist 05/25/23 0254 MR#: [id number] Acct: [id number] Name: RICHELLE CARDOZO Rep #:[id number] : 1955 68 From: Darius Weir DO PCP: Dr. Vinny Briones MD Status:ADM IN Location: [facility] [id number] HPI - General General Date of Admission: 05/25/23 Date of Service: 05/25/23 Chief Complaint: Shortness of breath HPI Narrative RICHELLE CARDOZO, is a 68 F a past medical history of essential hypertension, hyperlipidemia, history of Sjogren's syndrome; on hydroxychloroquine, history ofcholecystectomy, remote history of ectopic ; status post tubal ligation, history of colonoscopy, GERD, osteoarthritis and a strong positive family history of breast, colon and skin cancer in her mother and colon cancer in her sister who presents to [facility] ER complaining of shortness of breath. Ms. Cardozo reports her symptoms began approximately 5 days prior to admission with a gradual onset of dyspnea on exertion that progressed to shortness of breath with minimal activity. She states she is having difficulty walking from her kitchen to her living room without having to stop and catch her breath which is new and concerning for her. She also admits to anassociated cough but denies any sputum production. She also denies related fever, chills, sore throat, rhinorrhea, chest pain, vomiting, recent surgery, recent immobility, or recent injury but she does admit to some nausea. The patient's sister was at the bedside and she did help to augment the history. In the ER her CTA of the chest was negative for PE but did reveal evidence of extensive bilateral pneumonia of both lower lobes that is likely community- acquired in origin with leukocytosis of 13 present on admission complicated by incidentally noted ~2.2 centimeter mass in the upper pole of the Right kidney system with a high index of suspicion for renal cell carcinoma (with urology consultation recommended) compounded by an ~1 cm lucent lesion within the T11 vertebral body also suspicious for possible metastatic disease along with laboratory evidence of acute kidney injury; with a serum creatinine of 1.95 mg deciliter present on admission and a BUN of 23 mg/dL present on admission (up from her baseline level of 1.4 mg/dL and a BUN of 28 mg/dL on labs done in January 2023) along with hypokalemia of 3 mmol/L and hyponatremia of 128 mmol/L present on admission as she was noted to have an elevated D-dimer of 2.4 presenton admission with lower extremity doppler pending in the a.m. to evaluate for possible underlying DVT and she was then admitted to the general medical floor for ongoing care for a stay that is expected to be greater than 48 hours. [facility] Medical History (Updated 05/25/23 @ 06:[address] Darius Garcia DO) GERD (gastroesophageal reflux disease) Hemorrhoid HTN (hypertension) Mixed hyperlipidemia Osteoarthritis Sjogren's disease Home Medications calcium carbonate 600 mg-vitamin D3 20 mcg (800 unit) tablet 1 tab PO BIDCM 03/14/13 [History Last Taken 09/26/17] fluticasone propionate 50 mcg/actuation nasal spray,suspension 2 spray NASAL DAILY 03/14/13 [History Last Taken 09/26/17] omeprazole 20 mg capsule,delayed release 20 mg PO DAILY 03/14/13 [History Last Taken 12/12/18 06:00] montelukast 10 mg tablet 10 mg PO DAILY ALLERGIES 09/23/14 [History Last Taken 09/26/17] cholecalciferol (vitamin D3) 50 mcg (2,000 unit) capsule 2,000 unit PO DAILY 09/20/17 [History Last Taken 09/26/17] hydroxychloroquine 200 mg tablet 200 mg PO DAILY 05/24/23 [History Last Taken Unknown] Allergy/AdvReac Type Severity Reaction Status Date / Time amoxicillin AdvReac Nausea Verified 05/24/23 20:05 doxycycline AdvReac Other Verified 05/24/23 20:05 erythromycin base AdvReac Nausea Verified 05/24/23 20:05 [Erythromycin Base] hydrocodone bitartrate AdvReac Vomiting Verified 05/24/23 20:05 [From Vicodin] Sulfa (Sulfonamide AdvReac Nausea Verified 05/24/23 20:05 Antibiotics) Family History Mother Breast cancer Colon cancer Cancer skin CVA (cerebral vascular accident) Father CHF (congestive heart failure) Sister Colon cancer Surgical History S/P cholecystectomy S/P colonoscopy S/P ectopic S/P tubal ligation Social History Smoking Status: Never smoker ROS ROS Narrative Review of systems: Constitutional: Patient denies fevers or chills. Eyes: Patient denies blurry vision or discharge from eyes. ENT: Patient denies runny nose or sore throat. Cardiovascular: Patient denies chest pain or palpitations. Respiratory: Patient admits to cough and shortness of breath with wheezing. Gastrointestinal: Patient admits to nausea but denies vomiting or diarrhea. Genitourinary: Patient denies dysuria, hematuria or urinary frequency. Musculoskeletal: Patient admits to back pain but denies neck pain. Integumentary: Patient denies abscess or rash. Neurologic: Patient denies headache, dizziness or focal neurologic weakness. Allergic: Patient denies lip swelling, tongue swelling or urticaria. Psychiatric: Patient does admit to anxiety about her declining health. 14 point review systems otherwise negative except for positives noted above in HPI. Vital Signs Vital Signs Vital Signs: 05/24/23 20:02 05/24/23 22:03 05/24/23 22:03 Temperature 97.9 F Temperature Source Temporal Pulse Rate 114 H Respiratory Rate 18 22 H Respiratory Effort Respiratory Pattern Blood Pressure 99/60 Blood Pressure Mean 73 Pulse Ox 92 92 92 Oxygen Delivery Method Room Air Room Air Room Air Oxygen Flow Rate (L/min) 05/24/23 22:40 05/24/23 22:42 05/24/23 22:49 Temperature Temperature Source Pulse Rate 94 90 Respiratory Rate 24 H 18 Respiratory Effort Short of Breath Respiratory Pattern Tachypnea Normal Blood Pressure 108/68 Blood Pressure Mean 81 Pulse Ox 91 Oxygen Delivery Method Room Air Nasal Cannula Oxygen Flow Rate (L/min) 05/24/23 23:46 05/24/23 23:47 05/25/23 02:45 Temperature Temperature Source Pulse Rate 100 97 104 H Respiratory Rate 22 H 22 H 23 H Respiratory Effort Respiratory Pattern Blood Pressure 98/61 105/69 107/68 Blood Pressure Mean 73 81 81 Pulse Ox 87 93 93 Oxygen Delivery Method Room Air Nasal Cannula Nasal Cannula Oxygen Flow Rate (L/min) 2 2 Weight Weight: 141 lb 7 oz Body Mass Index (BMI) 22.8 Physical Exam Const alert, oriented x3 and average body habitus Constitutional Narrative: Patient appears chronically ill with labored respirations. General Appearance: cooperative HEENT normocephalic, head/scalp atraumatic and hearing grossly normal bilaterally HEENT Narrative: Oropharynx dry. Eyes PERRL and EOMs intact bilaterally Neck no lymphadenopathy and supple Resp Resp Narrative: Diminished breath sounds throughout with scattered rhonchi. Auscultation: rhonchi Cardio regular rate and regular rhythm GI normal to inspection, nondistended, normoactive bowel sounds, soft to palpation,non-tender and non-distended Extremity normal to inspection, full ROM and no clubbing, cyanosis or edema Neuro oriented x3, CN's II-XII intact bilaterally, moves all extremities and no focal motor deficits Sensorium / Orientation: awake, alert, oriented to person, oriented to place andoriented to time Speech: speech normal Motor Exam: strength 5/5 throughout Results Medical Records Data Attestation: I reviewed the patient's medical records Lab / Micro Data Attestation: I reviewed the patient's lab results. 05/24/23 20:41 05/24/23 20:41 Labs: Laboratory Results - last 24 hr 05/24/23 20:41: WBC 13.0 H, RBC 3.99 L, Hgb 11.5 L, Hct 34.3 L, MCV 86.0, MCH 28.8, MCHC 33.5, RDW Std Deviation 44.2 H, RDW Coeff of Casey 14.1, Plt Count 234,MPV 10.2, Immature Gran % (Auto) MOLECULAR BIOLOGY SCIENTIST, Neut % (Auto) MOLECULAR BIOLOGY SCIENTIST, Lymph % (Auto) MOLECULAR BIOLOGY SCIENTIST, [facility] %(Auto) MOLECULAR BIOLOGY SCIENTIST, Eos % (Auto) MOLECULAR BIOLOGY SCIENTIST, Baso % (Auto) MOLECULAR BIOLOGY SCIENTIST, Absolute Neuts (auto) 10.4 H, Absolute Lymphs (auto) 0.78 L, Neutrophils % (Manual) 70, Band Neutrophils % 10 H, Lymphocytes % (Manual) 6 L, Monocytes % (Manual) 14 H, Nucleated RBC % MOLECULAR BIOLOGY SCIENTIST, Diff Path Review October foll, D- Dimer Quant (PE/DVT) 2.40 H*, Sodium 128 L, Potassium 3.0 L, Chloride 98, Carbon Dioxide 22.0, Anion Gap 8, BUN 23 H, Creatinine 1.95 H, Estim Creat Clear Calc 25.49, Est GFR (MDRD) Af Amer 33 L, Est GFR (MDRD) Non-Af 27 L, BUN/Creatinine Ratio 11.8, Glucose 108 H, Calcium 8.8, Troponin I High Sens 25 05/24/23 23:43: Lactic Acid 1.4 Micro: Microbiology 05/24/23 22:45 Mucosa - Nasopharyngeal Rapid RSV (DFA) - Final 05/24/23 20:08 Nasal Secretion SARS-CoV-2 Antigen (Rapid) - Final Imagaing Radiology Impression Chest X-Ray 05/24/23 20:14 IMPRESSION: Mild basilar infiltrate/atelectasis bilaterally, left more than right. Electronically Signed: Xander Fraire DO at 20:31 EST , Chest CTA 05/24/23 23:59 IMPRESSION: 1. Findings of extensive bilateral lower lobe pneumonia, with lesser pneumonia in the upper lobes and right middle lobe. 2. Negative for PE. 3. Mild hilar or mediastinal adenopathy. 4. 2.2 solid mass of the right renal upper pole, most likely a small renal cell carcinoma. Urology follow-up suggested. 5. 1 cm lucent lesion within the T11 vertebral body, not definitely a benign cavernous hemangioma and correlation with bone scan or MR may be of benefit to evaluate for metastatic disease 6. Peribronchial cuffing indicating bronchial wall inflammation. Mild bilateral bronchiectasis. Nonstandard communication protocol initiated. Electronically Signed: Sandeep Lopez MD at 2:33 EST , ADDENDUM: 05/25/23 0242 IMPRESSION: 1. Findings of extensive bilateral lower lobe pneumonia, with lesser pneumonia in the upper lobes and right middle lobe. 2. Negative for PE. 3. Mild hilar or mediastinal adenopathy. 4. 2.2 solid mass of the right renal upper pole, most likely a small renal cell carcinoma. Urology follow-up suggested. 5. 1 cm lucent lesion within the T11 vertebral body, not definitely a benign cavernous hemangioma and correlation with bone scan or MR may be of benefit to evaluate for metastatic disease 6. Peribronchial cuffing indicating bronchial wall inflammation. Mild bilateral bronchiectasis. Nonstandard communication protocol initiated. N.B. : The above Results were Read Back by Sandeep Lopez MD to Steve Woods MD, and understanding confirmed on 05/25/2023 02:35:39 (ET). Electronically Signed: Sandeep Lopez MD at 2:33 EST , Assessment & Plan Assessment/Plan (1) Right renal mass: (2) Pneumonia: QUALIFIERS: Pneumonia type: due to unspecified organism Laterality: bilateral Lung location: lower lobe of lung Qualified Code(s): J18.9 - Pneumonia, unspecified organism (3) Hypoxia: (4) GABRIELLE (acute kidney injury): PLAN: Plan 1. Bilateral pneumonia confirmed on CT this visit with leukocytosis of 13 present on admission - Admit to general medical floor. Continue broad-spectrum antibiotics and await culture and sensitivity data. Give Tylenol prn for [id number] level 1-5/10 pain or fever. Give Morphine IV prn for severe level 6-10/10 pain. Give mucous to thin and mobilize secretions. 2. ~2.2 cm mass of the Right upper renal pole; incidentally noted and newly diagnosed with a ~1 cm lucent lesion within the T11 vertebral body also suspicious for possible metastatic disease complicating #1 in the setting of a strong positive family history of breast, colon and skin cancer in her mother and colon cancer in her sister - We will consult Dr. Dorsey of urology to see this patient on-rounds in the AM for further recommendations regarding possible biopsy with help appreciated in advance. Finally, we will also consult the oncologist on-call to see this patient on rounds in the a.m. for further recommendations with help appreciated in advance. 3. GABRIELLE; likely due at least in part to #2 with an elevated creatinine of 1.95 mg/dL and BUN of 27 mg/dL present on admission (up from her baseline of 1.47 mg/dL with a BUN of 28 mg/dL in January of this year) - Give volume resuscitationwith NS and then recheck BMP in the AM to ensure improvement. Avoid potentiallynephrotoxic agents. 4. Critically elevated d-dimer of 2.4 present on admission compounding #1 - #3 - CTA of chest negative for PE. We will also check LE dopplers to evaluate for DVT and give full-dose Lovenox until imaging confirms there is no evidence of significant clot formation in her LE's. 5. Hypokalemia of 3 mmol/L present on admission - Give supplemental KCl and then recheck level in the AM confirm repletion. 6. Hyponatremia of 128 mmol/L present on admission adding to the pathology - Give NS IVF and then recheck BMP in the AM to document response to treatment. 7. History of Sjogren's syndrome; on hydroxychloroquine - Her connective tissuedisease is apparently well-controlled at this time. Continue hydroxychloroquineas previous. 8. Essential hypertension - Give IV hydralazine as needed for systolic blood pressure greater than 160 mmHg. Avoid potentially nephrotoxic agents. 9. Hyperlipidemia - Check lipid profile this admission. 10. GERD - Continue PPI. 11. Osteoarthritis - Stable. Give Tylenol as needed as outlined above. 12. History of cholecystectomy - Noted. 12. History of colonoscopy - Noted. 13. Remote history of ectopic ; status post tubal ligation - Noted. 14. DVT prophylaxis - Patient started on full dose Lovenox until DVT is ruled out on lower extremity Doppler to be done in the a.m. Avoid SCD's with elevatedD-dimer suggesting there may be a clot present. Total time: Approximately 55 minutes. Charges/Coding Visit Charges Inpatient E&M: 57995 Init Hosp L2 05/25/23 0611 <Electronically signed by Darius Garcia DO> Cosigner Signature (if applicable): CC: Dr. Darius Garcia DO; Dr. Vinny Briones MD~ Signed [facility] Work Phone: 1(471) 702-151012-22-2023 History and physical note Author Darius Plummer [facility] May 25, 2023 6:11am Note Date/Time May 25, 2023 3:01am [facility] Medical Records Department [address] [place] [id number] H&P Exam - Hospitalist 05/25/23 0254 MR#: [id number] Acct: [id number] Name: RICHELLE CARDOZO Rep #:[id number] : 1955 68 From: Darius Weir DO PCP: Dr. Vinny Briones MD Status:ADM IN Location: [facility] [id number] HPI - General General Date of Admission: 05/25/23 Date of Service: 05/25/23 Chief Complaint: Shortness of breath HPI Narrative RICHELLE CARDOZO, is a 68 F a past medical history of essential hypertension, hyperlipidemia, history of Sjogren's syndrome; on hydroxychloroquine, history ofcholecystectomy, remote history of ectopic ; status post tubal ligation, history of colonoscopy, GERD, osteoarthritis and a strong positive family history of breast, colon and skin cancer in her mother and colon cancer in her sister who presents to [facility] ER complaining of shortness of breath. Ms. Cardozo reports her symptoms began approximately 5 days prior to admission with a gradual onset of dyspnea on exertion that progressed to shortness of breath with minimal activity. She states she is having difficulty walking from her kitchen to her living room without having to stop and catch her breath which is new and concerning for her. She also admits to anassociated cough but denies any sputum production. She also denies related fever, chills, sore throat, rhinorrhea, chest pain, vomiting, recent surgery, recent immobility, or recent injury but she does admit to some nausea. The patient's sister was at the bedside and she did help to augment the history. In the ER her CTA of the chest was negative for PE but did reveal evidence of extensive bilateral pneumonia of both lower lobes that is likely community- acquired in origin with leukocytosis of 13 present on admission complicated by incidentally noted ~2.2 centimeter mass in the upper pole of the Right kidney system with a high index of suspicion for renal cell carcinoma (with urology consultation recommended) compounded by an ~1 cm lucent lesion within the T11 vertebral body also suspicious for possible metastatic disease along with laboratory evidence of acute kidney injury; with a serum creatinine of 1.95 mg deciliter present on admission and a BUN of 23 mg/dL present on admission (up from her baseline level of 1.4 mg/dL and a BUN of 28 mg/dL on labs done in January 2023) along with hypokalemia of 3 mmol/L and hyponatremia of 128 mmol/L present on admission as she was noted to have an elevated D-dimer of 2.4 presenton admission with lower extremity doppler pending in the a.m. to evaluate for possible underlying DVT and she was then admitted to the general medical floor for ongoing care for a stay that is expected to be greater than 48 hours. [facility] Medical History (Updated 05/25/23 @ 06:[address] Darius Garcia DO) GERD (gastroesophageal reflux disease) Hemorrhoid HTN (hypertension) Mixed hyperlipidemia Osteoarthritis Sjogren's disease Home Medications calcium carbonate 600 mg-vitamin D3 20 mcg (800 unit) tablet 1 tab PO BIDCM 03/14/13 [History Last Taken 09/26/17] fluticasone propionate 50 mcg/actuation nasal spray,suspension 2 spray NASAL DAILY 03/14/13 [History Last Taken 09/26/17] omeprazole 20 mg capsule,delayed release 20 mg PO DAILY 03/14/13 [History Last Taken 12/12/18 06:00] montelukast 10 mg tablet 10 mg PO DAILY ALLERGIES 09/23/14 [History Last Taken 09/26/17] cholecalciferol (vitamin D3) 50 mcg (2,000 unit) capsule 2,000 unit PO DAILY 09/20/17 [History Last Taken 09/26/17] hydroxychloroquine 200 mg tablet 200 mg PO DAILY 05/24/23 [History Last Taken Unknown] Allergy/AdvReac Type Severity Reaction Status Date / Time amoxicillin AdvReac Nausea Verified 05/24/23 20:05 doxycycline AdvReac Other Verified 05/24/23 20:05 erythromycin base AdvReac Nausea Verified 05/24/23 20:05 [Erythromycin Base] hydrocodone bitartrate AdvReac Vomiting Verified 05/24/23 20:05 [From Vicodin] Sulfa (Sulfonamide AdvReac Nausea Verified 05/24/23 20:05 Antibiotics) Family History Mother Breast cancer Colon cancer Cancer skin CVA (cerebral vascular accident) Father CHF (congestive heart failure) Sister Colon cancer Surgical History S/P cholecystectomy S/P colonoscopy S/P ectopic S/P tubal ligation Social History Smoking Status: Never smoker ROS ROS Narrative Review of systems: Constitutional: Patient denies fevers or chills. Eyes: Patient denies blurry vision or discharge from eyes. ENT: Patient denies runny nose or sore throat. Cardiovascular: Patient denies chest pain or palpitations. Respiratory: Patient admits to cough and shortness of breath with wheezing. Gastrointestinal: Patient admits to nausea but denies vomiting or diarrhea. Genitourinary: Patient denies dysuria, hematuria or urinary frequency. Musculoskeletal: Patient admits to back pain but denies neck pain. Integumentary: Patient denies abscess or rash. Neurologic: Patient denies headache, dizziness or focal neurologic weakness. Allergic: Patient denies lip swelling, tongue swelling or urticaria. Psychiatric: Patient does admit to anxiety about her declining health. 14 point review systems otherwise negative except for positives noted above in HPI. Vital Signs Vital Signs Vital Signs: 05/24/23 20:02 05/24/23 22:03 05/24/23 22:03 Temperature 97.9 F Temperature Source Temporal Pulse Rate 114 H Respiratory Rate 18 22 H Respiratory Effort Respiratory Pattern Blood Pressure 99/60 Blood Pressure Mean 73 Pulse Ox 92 92 92 Oxygen Delivery Method Room Air Room Air Room Air Oxygen Flow Rate (L/min) 05/24/23 22:40 05/24/23 22:42 05/24/23 22:49 Temperature Temperature Source Pulse Rate 94 90 Respiratory Rate 24 H 18 Respiratory Effort Short of Breath Respiratory Pattern Tachypnea Normal Blood Pressure 108/68 Blood Pressure Mean 81 Pulse Ox 91 Oxygen Delivery Method Room Air Nasal Cannula Oxygen Flow Rate (L/min) 05/24/23 23:46 05/24/23 23:47 05/25/23 02:45 Temperature Temperature Source Pulse Rate 100 97 104 H Respiratory Rate 22 H 22 H 23 H Respiratory Effort Respiratory Pattern Blood Pressure 98/61 105/69 107/68 Blood Pressure Mean 73 81 81 Pulse Ox 87 93 93 Oxygen Delivery Method Room Air Nasal Cannula Nasal Cannula Oxygen Flow Rate (L/min) 2 2 Weight Weight: 141 lb 7 oz Body Mass Index (BMI) 22.8 Physical Exam Const alert, oriented x3 and average body habitus Constitutional Narrative: Patient appears chronically ill with labored respirations. General Appearance: cooperative HEENT normocephalic, head/scalp atraumatic and hearing grossly normal bilaterally HEENT Narrative: Oropharynx dry. Eyes PERRL and EOMs intact bilaterally Neck no lymphadenopathy and supple Resp Resp Narrative: Diminished breath sounds throughout with scattered rhonchi. Auscultation: rhonchi Cardio regular rate and regular rhythm GI normal to inspection, nondistended, normoactive bowel sounds, soft to palpation,non-tender and non-distended Extremity normal to inspection, full ROM and no clubbing, cyanosis or edema Neuro oriented x3, CN's II-XII intact bilaterally, moves all extremities and no focal motor deficits Sensorium / Orientation: awake, alert, oriented to person, oriented to place andoriented to time Speech: speech normal Motor Exam: strength 5/5 throughout Results Medical Records Data Attestation: I reviewed the patient's medical records Lab / Micro Data Attestation: I reviewed the patient's lab results. 05/24/23 20:41 05/24/23 20:41 Labs: Laboratory Results - last 24 hr 05/24/23 20:41: WBC 13.0 H, RBC 3.99 L, Hgb 11.5 L, Hct 34.3 L, MCV 86.0, MCH 28.8, MCHC 33.5, RDW Std Deviation 44.2 H, RDW Coeff of Casey 14.1, Plt Count 234,MPV 10.2, Immature Gran % (Auto) MOLECULAR BIOLOGY SCIENTIST, Neut % (Auto) MOLECULAR BIOLOGY SCIENTIST, Lymph % (Auto) MOLECULAR BIOLOGY SCIENTIST, [facility] %(Auto) MOLECULAR BIOLOGY SCIENTIST, Eos % (Auto) MOLECULAR BIOLOGY SCIENTIST, Baso % (Auto) MOLECULAR BIOLOGY SCIENTIST, Absolute Neuts (auto) 10.4 H, Absolute Lymphs (auto) 0.78 L, Neutrophils % (Manual) 70, Band Neutrophils % 10 H, Lymphocytes % (Manual) 6 L, Monocytes % (Manual) 14 H, Nucleated RBC % MOLECULAR BIOLOGY SCIENTIST, Diff Path Review October foll, D- Dimer Quant (PE/DVT) 2.40 H*, Sodium 128 L, Potassium 3.0 L, Chloride 98, Carbon Dioxide 22.0, Anion Gap 8, BUN 23 H, Creatinine 1.95 H, Estim Creat Clear Calc 25.49, Est GFR (MDRD) Af Amer 33 L, Est GFR (MDRD) Non-Af 27 L, BUN/Creatinine Ratio 11.8, Glucose 108 H, Calcium 8.8, Troponin I High Sens 25 05/24/23 23:43: Lactic Acid 1.4 Micro: Microbiology 05/24/23 22:45 Mucosa - Nasopharyngeal Rapid RSV (DFA) - Final 05/24/23 20:08 Nasal Secretion SARS-CoV-2 Antigen (Rapid) - Final Imagaing Radiology Impression Chest X-Ray 05/24/23 20:14 IMPRESSION: Mild basilar infiltrate/atelectasis bilaterally, left more than right. Electronically Signed: Xander Fraire DO at 20:31 EST , Chest CTA 05/24/23 23:59 IMPRESSION: 1. Findings of extensive bilateral lower lobe pneumonia, with lesser pneumonia in the upper lobes and right middle lobe. 2. Negative for PE. 3. Mild hilar or mediastinal adenopathy. 4. 2.2 solid mass of the right renal upper pole, most likely a small renal cell carcinoma. Urology follow-up suggested. 5. 1 cm lucent lesion within the T11 vertebral body, not definitely a benign cavernous hemangioma and correlation with bone scan or MR may be of benefit to evaluate for metastatic disease 6. Peribronchial cuffing indicating bronchial wall inflammation. Mild bilateral bronchiectasis. Nonstandard communication protocol initiated. Electronically Signed: Sandeep Lopez MD at 2:33 EST , ADDENDUM: 05/25/23 0242 IMPRESSION: 1. Findings of extensive bilateral lower lobe pneumonia, with lesser pneumonia in the upper lobes and right middle lobe. 2. Negative for PE. 3. Mild hilar or mediastinal adenopathy. 4. 2.2 solid mass of the right renal upper pole, most likely a small renal cell carcinoma. Urology follow-up suggested. 5. 1 cm lucent lesion within the T11 vertebral body, not definitely a benign cavernous hemangioma and correlation with bone scan or MR may be of benefit to evaluate for metastatic disease 6. Peribronchial cuffing indicating bronchial wall inflammation. Mild bilateral bronchiectasis. Nonstandard communication protocol initiated. N.B. : The above Results were Read Back by Sandeep Lopez MD to Steve Woods MD, and understanding confirmed on 05/25/2023 02:35:39 (ET). Electronically Signed: Sandeep Lopez MD at 2:33 EST , Assessment & Plan Assessment/Plan (1) Right renal mass: (2) Pneumonia: QUALIFIERS: Pneumonia type: due to unspecified organism Laterality: bilateral Lung location: lower lobe of lung Qualified Code(s): J18.9 - Pneumonia, unspecified organism (3) Hypoxia: (4) GABRIELLE (acute kidney injury): PLAN: Plan 1. Bilateral pneumonia confirmed on CT this visit with leukocytosis of 13 present on admission - Admit to general medical floor. Continue broad-spectrum antibiotics and await culture and sensitivity data. Give Tylenol prn for [id number] level 1-5/10 pain or fever. Give Morphine IV prn for severe level 6-10/10 pain. Give mucous to thin and mobilize secretions. 2. ~2.2 cm mass of the Right upper renal pole; incidentally noted and newly diagnosed with a ~1 cm lucent lesion within the T11 vertebral body also suspicious for possible metastatic disease complicating #1 in the setting of a strong positive family history of breast, colon and skin cancer in her mother and colon cancer in her sister - We will consult Dr. Dorsey of urology to see this patient on-rounds in the AM for further recommendations regarding possible biopsy with help appreciated in advance. Finally, we will also consult the oncologist on-call to see this patient on rounds in the a.m. for further recommendations with help appreciated in advance. 3. GABRIELLE; likely due at least in part to #2 with an elevated creatinine of 1.95 mg/dL and BUN of 27 mg/dL present on admission (up from her baseline of 1.47 mg/dL with a BUN of 28 mg/dL in January of this year) - Give volume resuscitationwith NS and then recheck BMP in the AM to ensure improvement. Avoid potentiallynephrotoxic agents. 4. Critically elevated d-dimer of 2.4 present on admission compounding #1 - #3 - CTA of chest negative for PE. We will also check LE dopplers to evaluate for DVT and give full-dose Lovenox until imaging confirms there is no evidence of significant clot formation in her LE's. 5. Hypokalemia of 3 mmol/L present on admission - Give supplemental KCl and then recheck level in the AM confirm repletion. 6. Hyponatremia of 128 mmol/L present on admission adding to the pathology - Give NS IVF and then recheck BMP in the AM to document response to treatment. 7. History of Sjogren's syndrome; on hydroxychloroquine - Her connective tissuedisease is apparently well-controlled at this time. Continue hydroxychloroquineas previous. 8. Essential hypertension - Give IV hydralazine as needed for systolic blood pressure greater than 160 mmHg. Avoid potentially nephrotoxic agents. 9. Hyperlipidemia - Check lipid profile this admission. 10. GERD - Continue PPI. 11. Osteoarthritis - Stable. Give Tylenol as needed as outlined above. 12. History of cholecystectomy - Noted. 12. History of colonoscopy - Noted. 13. Remote history of ectopic ; status post tubal ligation - Noted. 14. DVT prophylaxis - Patient started on full dose Lovenox until DVT is ruled out on lower extremity Doppler to be done in the a.m. Avoid SCD's with elevatedD-dimer suggesting there may be a clot present. Total time: Approximately 55 minutes. Charges/Coding Visit Charges Inpatient E&M: 86766 Init Hosp L2 05/25/23 0611 <Electronically signed by Darius Garcia DO> Cosigner Signature (if applicable): CC: Dr. Darius Garcia DO; Dr. Vinny Briones MD~ Signed [facility] Work Phone: [phone]) 246-209312-19-2023 NoteHNO ID: [id number] Author: Mohini Davidson APRN.HAND [employer]OD [employer]ER Service: ? Author Type: Nurse Practitioner Type: Progress Notes Filed: 05/22/2023 10:05 AM Note Text: Subjective The history is provided by the patient. No american sign language interpreter was used. JAZMINE Cardozo is a 68 [...] kidney disease) stage 3, GFR 30-59 ml/min ([facility]) 2013 Diverticulosis of colon [...] have confirmed and edited as necessary, the [facility] Review of Systems Constitutional: Negative [...] understanding of concepts an (more content not included)...[facility]10-10-2023 History of Present illness Narrative* Jacki Price RDMS - 03/13/2023 11:30 AM EDT Radiology Service Progress Note PATIENT NAME: Richelle Cardozo DATE OF SERVICE: March 13, 2023 TIME: 1:40 PM PATIENT IDENTITY VERIFICATION COMPLETED USING TWO (2) IDENTIFIERS: Name and Date of confirmedby patient verbally. FALL SCREENING: Has the patient [...] 13, 2023 1:40 PM documented in this encounterUniversity [facility]als St. [facility]10-10-2023 History of Present illness Narrative* Emilie Cordon Mammo Denia - 03/13/2023 11:00 AM EDT Radiology Service Progress Note PATIENT NAME: Richelle Cardozo DATE OF SERVICE: March 13, 2023 TIME: 10:56 AM PATIENT IDENTITY VERIFICATION COMPLETED USING TWO (2) IDENTIFIERS: Name and Date of confirmedby patient verbally. FALL SCREENING: Has the patient had 2 falls in the last year or 1 fall with injury or currently using an Ambulatory Assistive Device (Walker, Cane, Wheelchair, Crutches, etc.)? No PATIENT GENDER DATA: Female. status: : No status: NO. PATIENT RELEVANT IMPLANT DATA REVIEWED: Not Applicable RADIOLOGY DEPARTMENT: Mammography PERIPHERAL IV DATA: Not applicable SIGNED BY: Juan Prescotto Denia March 13, 2023 10:56 AM documented in this encounterUniversity Hospitals St. [facility]09-25-2023 History of Present illness Narrative* Anni Antonio LPN - 02/26/2023 12:23 PM EDT Scan on 02/26/2023 7:37 AM by Provider, External, PANicoletteC: Miscellaneous Lab documented in this encounterUniversity Hospitals St. [facility]09-24-2023 History of Present illness Narrative* Catherine Fernández PA-C - 2023 11:17 AM EDT This note was created using [employer]. Subjective Richelle Cardozo is a 68 year [...] kidney disease) stage 3, GFR 30-59 ml/min ([facility]) 2013 Diverticulosis of colon [...] in each nostril once daily. Rinse mouth afteruse. 0 omeprazole 20 mg ORAL capsule Take [...] 3-5 days if symptoms persist or worsen. Catherine Fernández PA-C documented in this encounterUniversity Hospitals St. [facility]09-24-2023 Instructions* Patient Instructions* Catherine Fernández PA-C - 2023 10:54 AM EDT Flonase Plain mucinex otc If not improving in 3-5 days see pcp. documented in this encounterUniversity Hospitals St. [facility]09-11-2023 Miscellaneous Notes* Letter - Coordinator, Mammography - 02/12/2023 5:30 PM EDT February 13, 2023 PID: [id number] Richelle Cardozo [address] [place] [address] Dear Ms. Cardozo, Your recent breast imaging exam on 02/09/2023 showed a possible finding that requires additional imaging studies for a complete evaluation. Most such findings are probably benign (not cancer). If you have a healthcare provider who ordered/prescribed your screening mammogram: Please call [phone] or [phone]: [phone] to schedule an appointment for your additional imaging (if youhave not already done so). If you DO [...] and reports are kept on file at [facility] as part of your permanent medical record, and are available for your continuing care. Thank you for allowing us to help in meeting your health care needs. Sincerely, Dr. Ramirez Interpreting Radiologist [facility] (Additional imaging) documented in this encounterUniversity Hospitals St. [facility]09-08-2023 History of Present illness Narrative* Patrick, Monika, Mammo Tech - 02/09/2023 10:10 AM EDT Radiology Service Progress Note PATIENT NAME: Richelle Cardozo DATE OF SERVICE: February 09, 2023 TIME: 9:59 AM PATIENT IDENTITY VERIFICATION COMPLETED USING TWO (2) IDENTIFIERS: Name and Date of confirmedby patient verbally. FALL SCREENING: Has the patient [...] Estefania Trejo February 09, 2023 9:59 AM documented in this encounterUniversity Hospitals St. [facility]06-29-2023 History of Present illness Narrative* Anni Antonio LPN - 11/30/2022 7:04 AM EDT Scan on 11/28/2022 11:31 AM by External Provider, ROBERTC: Consultation - Nephrology/Renal documented in this encounterUniversity Hospitals St. [facility]06-23-2023 History of Present illness Narrative* Batsheva Hassan MA - 11/24/2022 10:38 AM EDT Scan on 11/22/2022 8:10 AM by External Provider, ROBERTC: Chemistry Scan on 11/22/2022 7:35 AM by External Provider, PRASHANTH: Hematology Batsheva Hassan MA documented in this encounterUniversity Hospitals St. [facility]06-09-2023 History of Present illness Narrative* Meliza Masters RT(R) - 11/10/2022 12:20 PM EDT Radiology Service Progress Note PATIENT NAME: Richelle Cardozo DATE OF SERVICE: November 10, 2022 TIME: 12:13 PM PATIENT IDENTITY VERIFICATION COMPLETED USING TWO (2) IDENTIFIERS: Name and Date of confirmedby patient verbally. FALL SCREENING: Has the patient [...] RT Charmaine(R) November 10, 2022 12:13 PM documented in this encounterUniversity Hospitals St. [facility]05-08-2023 Instructions* Patient Instructions* Yokasta Mcnulty PA-C - 10/09/2022 1:38 PM EDT Repeat CXR in about 1 month. Return if symptoms change or worsen. documented in this encounterUniversity Hospitals St. [facility]05-08-2023 History of Present illness Narrative* Yokasta Mcnulty PA-C - 10/09/2022 1:34 PM EDT Chief Complaint No chief complaint on file. [...] kidney disease) stage 3, GFR 30-59 ml/min ([facility]) 2013 Diverticulosis of colon [...] in each nostril once daily. Rinse mouth afteruse. omeprazole 20 mg ORAL capsule Take 1 [...] at that time, will pursue CT scan. Yokasta Mcnulty PA-C documented in this encounterUniversity Hospitals St. [facility]05-08-2023 Miscellaneous Notes* Telephone Encounter - Anni Antonio LPN - 10/09/2022 10:57 AM EDT Pt notified of same. Pt will keep ov. Anni Antonio LPN * Telephone Encounter - Yokasta Mcnulty PA-C - 10/09/2022 10:43 AM EDT Yes. I forgot we had that scheduled. I would like to listen to her lungs just to make sure i'm not hearing anything in that area. Yokasta Mcnulty PA-C * Telephone Encounter - KATHRYN Medina - 10/09/2022 9:45 AM EDT TC to patient who verbalizes understanding of providers message. Patient states she has no cough orcongestion and she is feeling much better. Patient agreeable to 1 month CXR. Patient asking if she needs to keep her appointment scheduled for today for 3 week pneumonia followup since she is no longer symptomatic. Patient requesting return call either way. Thank you. KATHRYN Medina * Telephone Encounter - Yokasta Mcnulty PA-C - 10/09/2022 9:04 AM EDT Xray improved without full resolution. Make sure she has continued to improve clinically. No cough/congestion etc. If she is feeling okay, then we will get another CXR in 1 month. Patient to follow up in office if she is symptomatic at any time. Thanks. Yokasta Mcnulty PA-C documented in this encounterUniversity Hospitals St. [facility]05-05-2023 History of Present illness Narrative* Alexandra Zaragoza RT(R) - 10/06/2022 11:20 AM EDT Radiology Service Progress Note PATIENT NAME: Richelle Cardozo DATE OF SERVICE: October 06, 2022 TIME: 11:09 AM PATIENT IDENTITY VERIFICATION COMPLETED USING TWO (2) IDENTIFIERS: Name and Date of confirmedby patient verbally. FALL SCREENING: Has the patient [...] RT Lorenza(R) October 06, 2022 11:09 AM documented in this encounterUniversity Hospitals St. [facility]04-14-2023 History of Present illness Narrative* Yokasta Mcnulty PA-C - 09/15/2022 9:05 AM EDT Chief Complaint Patient presents with: Recheck: cough [...] kidney disease) stage 3, GFR 30-59 ml/min ([facility]) 2013 Diverticulosis of colon [...] in each nostril once daily. Rinse mouth afteruse. omeprazole 20 mg ORAL capsule Take 1 capsule by mouth once daily. montelukast sodium(SINGULAIR 10 MG TAB) take one tablet at bedtime albuterol HFA (VENTOLIN HFA) 90 mcg/actuation inhaler Inhale 2 Puffs as instructed every 4 hours asneeded. promethazine (PHENERGAN) 25 mg tablet Take 1 [...] as needed. - XR CHEST 2V FRONTAL/LAT Yokasta Mcnulty PA-C documented in this encounterUniversity Hospitals St. [facility]04-10-2023 History of Present illness Narrative* Catherine Fernández PA-C - 09/11/2022 11:38 AM EDT This note was created using [employer]. Subjective Richelle Cardozo is a 67 year old female. HPI Patient presents with a chief complaint of cough and chest congestion for 10 days. She has had fevers off and on. Temp here 99.6. She has used Robitussin [id number] without relief. Her grandkids were sick recently [...] kidney disease) stage 3, GFR 30-59 ml/min ([facility]) 2013 Diverticulosis of colon [...] gammopathy 06/27/2013 Seborrheic Keratosis 11/07/2009 Sjogren's disease ([facility]) Solar lentigo 11/07/2009 Current [...] in each nostril once daily. Rinse mouth afteruse. 0 omeprazole 20 mg ORAL capsule Take [...] 2 Puffs as instructed every 4 hours asneeded. 18 g 0 promethazine (PHENERGAN) 25 mg [...] 67.1 kg (148 lb) SpO2 95% BMI 24.44kg/m Physical Exam Vitals reviewed. Constitutional: Appearance: Normal [...] lower lung, recommended repeat imaging to ensure resolutionor possible CT. Discussed with patient her allergy [...] close follow-up with PCP. Red flags to beseen in the ER discussed. Patient agreeable with plan. Discussed with Dr. Prakash as well. - XR CHEST 2V FRONTAL/LAT Catherine Fernández PA-C documented in this encounterUniversity Hospitals St. [facility]04-10-2023 History of Present illness Narrative* Alexandra Zaragoza, RT(R) - 09/11/2022 10:50 AM EDT Radiology Service Progress Note PATIENT NAME: Richelle Cardozo DATE OF SERVICE: September 11, 2022 TIME: 10:51 AM PATIENT IDENTITY VERIFICATION COMPLETED USING TWO (2) IDENTIFIERS: Name and Date of confirmedby patient verbally. FALL SCREENING: Has the patient [...] RT Lorenza(R) September 11, 2022 10:51 AM documented in this encounterUniversity Hospitals St. John [facility]04-06-2023 History of Present illness Narrative* Batsheva Hassan MA - 09/07/2022 1:07 PM EDT Scan on 09/02/2022 12:53 AM by External Provider: Consultation - Orthopedics Batsheva Hassan MA documented in this encounterUniversity Hospitals St. [facility]03-09-2023 Instructions* Patient Instructions* Pedrito Mcdaniel APRN.CNP - 08/10/2022 4:49 PM EST Will notify patient of labs ordered once results received from customer supply coordinator Continue current medications Continue follow up with specialists as scheduled Follow up in 1 year documented in this encounterUniversity Hospitals St. John [facility]03-09-2023 History of Present illness Narrative* Pedrito Mcdaniel APRN.CNP - 08/10/2022 4:27 PM EST Richelle Cardozo is a 67 year old female here for a Medicare Initial Annual Wellness Visit Health Risk Assessment In general, health is: Very good Concerns with balance: Not at all Concerns with teeth or dentures: Not at all Concerns with sexual function: Not at all [place] anxious, stressed, angry, irritable, lonely, isolated, or [...] with patient, and I recommended no further interventionat this time. Cognitive screening Mini Cog Score: [...] kidney disease) stage 3, GFR 30-59 ml/min ([facility]) 2013 Diverticulosis of colon [...] in each nostril once daily. Rinse mouth afteruse. omeprazole 20 mg ORAL capsule Take 1 capsule by mouth once daily. montelukast sodium(SINGULAIR 10 MG TAB) take one tablet at bedtime albuterol HFA (VENTOLIN HFA) 90 mcg/actuation inhaler Inhale 2 Puffs as instructed every 4 hours asneeded. promethazine (PHENERGAN) 25 mg tablet Take 1 [...] diet of 1000 mg/day for under 50, 1200- 1500 mg/day for 50+ - Discussed need and [...] diet of 1000 mg/day for under 50, 1200- 1500 mg/day for 50+ - Discussed need and benefit for weight loss. BMI 25.27 kg/(m^2) - Depression screening tool completed and reviewed with patient. Based on score and interview, patient is not at risk for depression and recommended no further intervention at this time. - Follow up for annual exam in one year Pedrito Mcdaniel APRN.REBECCA documented in this encounterUniversity Hospitals St. John [facility]02-09-2023 Miscellaneous Notes* Telephone Encounter - Batsheva Hassan MA - 07/13/2022 12:18 PM EST Patient is scheduled. Batsheva Hassan MA * Telephone Encounter - Batsheva Hassan MA - 07/13/2022 8:32 AM EST Left message for patient to contact office. Batsheva Hassan MA * Telephone Encounter - Vinny Briones MD - 07/12/2022 12:38 PM EST I missed the office appt in October 2020. Ok for her to be seen but the medicare wellness needs to be 40 min. * Telephone Encounter - Batsheva Hassan MA - 07/12/2022 9:[address] Briones, So this patient was in [...] to schedule this patient for wellness exam. Batsheva Hassan MA documented in this encounterUniversity Hospitals St. John [facility] Center02-06-2023 History of Present illness Narrative* Arpita Head MA - 07/10/2022 2:04 PM EST POPULATION HEALTH NAVIGATION OUTREACH Action/I Spoke to Aleida wants to schedule medicare wellness after 4:30. ANNUAL [...] done DEPRESSION ASSESSMENT Never done Navigation Signature: Arpita Head MA July 10, 2022 2:04 PM documented in this encounterUniversity Hospitals St. John [facility] Center09-12-2022 Miscellaneous Notes* Telephone Encounter - Anni Antonio LPN - 02/13/2022 12:30 PM EDT Pt notified of same. Anni Antonio LPN * Telephone Encounter - Yokasta Mcnulty PA-C - 02/13/2022 12:07 PM EDT Prescription sent. * Telephone Encounter - Shea Rain RN - 02/13/2022 11:55 AM EDT Patient started having Covid Symptoms last 02/09/2022. Patient tested positive for Covid on Home test. Patient states that most of her symptoms are gone. Patient states that the only symptomlingering is nausea. Patient asking if a prescription for nausea can be sent to [facility]? Please review and advise, Shea Rain RN documented in this encounterUniversity Hospitals St. John [facility] Center08-12-2022 Miscellaneous Notes* Letter - Mammography Coordinator - 01/13/2022 8:27 AM EDT January 13, 2022 PID: [id number] Richelle Cardozo [address] [place] [address] Dear Ms. Cardozo, Your recent breast imaging exam on 01/13/2022 showed a possible finding that requires additional imaging studies for a complete evaluation. Most such findings are probably benign (not cancer). If you have a healthcare provider who ordered/prescribed your screening mammogram: Please call [phone] or [phone]: [phone] to schedule an appointment for your additional imaging (if youhave not already done so). If you DO [...] and reports are kept on file at [facility] as part of your permanent medical record, and are available for your continuing care. Thank you for allowing us to help in meeting your health care needs. Sincerely, Dr. Wagner Interpreting Radiologist [facility] (Additional imaging) documented in this encounterUniversity Hospitals St. John Medical Center08-12-2022 History of Present illness Narrative* RT Lucien(R) - 01/13/2022 7:50 AM EDT Radiology Service Progress Note PATIENT NAME: Richelle Cardozo DATE OF SERVICE: January 13, 2022 TIME: 7:30 AM PATIENT IDENTITY VERIFICATION COMPLETED USING TWO (2) IDENTIFIERS: Name and Date of confirmedby patient verbally. FALL SCREENING: Has the patient [...] 13, 2022 7:30 AM documented in this encounterUniversity Hospitals St. John [facility] Center08-12-2022 History of Present illness Narrative* Mindi Thomas APRN.HAND WOOD SANDER - 01/13/2022 7:00 AM EDT Aleida is a 66 year old who presents for an annual gynecologic exam without complaints. Postmenopausal: Yes HRT use: No. 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 John [facility] Center08-26-2021 History of Past illness Narrative* Problem Noted Date Resolved Date Polyp of colon 01/27/2021 01/27/2021 Encounter for gynecological examination without abnormal finding 10/21/2015 12/02/2015 [facility] history of [facility] cancer 01/07/2015 [...] of this encounter (statuses as of 01/13/2022) [facility]08-26-2021 History of Past illness Narrative* Problem Noted Date Resolved Date Polyp of colon 01/27/2021 01/27/2021 Encounter for gynecological examination without abnormal finding 10/21/2015 12/02/2015 [facility] Family history of colon cancer 01/07/2015 [...] of this encounter (statuses as of 01/13/2022) [facility]08-26-[facility] History of Past illness Narrative* Problem Noted Date Resolved Date Polyp of colon 01/27/2021 01/27/2021 Encounter for gynecological examination without abnormal finding 10/21/2015 12/02/2015 [facility] Family history of colon [...] of this encounter (statuses as of 01/14/2022) [facility] History of Past illness Narrative* Problem Noted Date Resolved Date Polyp of colon 01/27/2021 01/27/2021 Encounter for gynecological examination without abnormal finding 10/21/2015 12/02/2015 [facility]: [facility] Family history of colon cancer 01/07/2015 [...] of this encounter (statuses as of 01/17/2022) [facility] History of Past illness Narrative* Problem Noted Date Resolved Date Polyp of colon 01/27/2021 01/27/2021 Encounter for gynecological examination without abnormal finding 10/21/2015 12/02/2015 [facility]: [facility] Family history of colon cancer 01/07/2015 [...] of this encounter (statuses as of 02/13/2022) [facility] History of Past illness Narrative* Problem Noted Date Resolved Date Polyp of colon 01/27/2021 01/27/2021 Encounter for gynecological examination without abnormal finding 10/21/2015 12/02/2015 [facility]: [facility] Family history of colon cancer 01/07/2015 [...] of this encounter (statuses as of 04/05/2022) [facility] History of Past illness Narrative* Problem Noted Date Resolved Date Polyp of colon 01/27/2021 01/27/2021 Encounter for gynecological examination without abnormal finding 10/21/2015 12/02/2015 [facility]: [facility]. Family history of colon [...] of this encounter (statuses as of 07/11/2022) [facility] History of Past illness Narrative* Problem Noted Date Resolved Date Polyp of colon 01/27/2021 01/27/2021 Encounter for gynecological examination without abnormal finding 10/21/2015 12/02/2015 [facility]: [facility] Family history of colon cancer 01/07/2015 [...] of this encounter (statuses as of 07/13/2022) [facility] History of Past illness Narrative* Problem Noted Date Resolved Date Polyp of colon 01/27/2021 01/27/2021 Encounter for gynecological examination without abnormal finding 10/21/2015 12/02/2015 [facility]: [facility] Family history of colon cancer 01/07/2015 [...] of this encounter (statuses as of 08/11/2022) [facility] of Past illness Narrative* Problem Noted Date Resolved Date Polyp of colon 01/27/2021 01/27/2021 Encounter for gynecological examination without abnormal finding 10/21/2015 12/02/2015 [facility]: [facility] Family history of colon cancer 01/07/2015 [...] of this encounter (statuses as of 09/08/2022) [facility] of Past illness Narrative* Problem Noted Date Resolved Date Polyp of colon 01/27/2021 01/27/2021 Encounter for gynecological examination without abnormal finding 10/21/2015 12/02/2015 [facility]: [facility] Family history of colon cancer 01/07/2015 0 [...] of this encounter (statuses as of 09/11/2022) [facility] of Past illness Narrative* Problem Noted Date Resolved Date Polyp of colon 01/27/2021 01/27/2021 Encounter for gynecological examination without abnormal finding 10/21/2015 12/02/2015 Overview: [facility]. Family history of colon cancer 01/07/2015 [...] of this encounter (statuses as of 09/15/2022) [facility] of Past illness Narrative* Problem Noted Date Resolved Date Polyp of colon 01/27/2021 01/27/2021 Encounter for gynecological examination without abnormal finding 10/21/2015 12/02/2015 [facility]: [facility] Family history of colon cancer 01/07/2015 [...] of this encounter (statuses as of 10/09/2022) [facility] of Past illness Narrative* Problem Noted Date Resolved Date Polyp of colon 01/27/2021 01/27/2021 Encounter for gynecological examination without abnormal finding 10/21/2015 12/02/2015 [facility]: [facility] Family history of colon cancer 01/07/2015 [...] of this encounter (statuses as of 10/09/2022) [facility] of Past illness Narrative* Problem Noted Date Resolved Date Polyp of colon 01/27/2021 01/27/2021 Encounter for gynecological examination without abnormal finding 10/21/2015 12/02/2015 [facility]: [facility]. Family history of colon cancer 01/07/2015 0 [...] of this encounter (statuses as of 11/25/2022) [facility] of Past illness Narrative* Problem Noted Date Resolved Date Polyp of colon 01/27/2021 01/27/2021 Encounter for gynecological examination without abnormal finding 10/21/2015 12/02/2015 Overview: [facility]. Family history of colon cancer 01/07/2015 [...] of this encounter (statuses as of 11/30/2022) [facility] of Past illness Narrative* Problem Noted Date Diagnosed Date Resolved Date Polyp of colon 01/27/2021 01/27/2021 Encounter for gynecological examination without abnormal finding 10/21/2015 12/02/2015 [facility]: [facility] Family history of colon cancer 01/07/2015 [...] of this encounter (statuses as of 02/13/2023) [facility] of Past illness Narrative* Problem Noted Date Diagnosed Date Resolved Date Polyp of colon 01/27/2021 01/27/2021 Encounter for gynecological examination without abnormal finding 10/21/2015 12/02/2015 [facility]: [facility] Family history of colon cancer 01/07/2015 [...] of this encounter (statuses as of 02/13/2023) [facility] of Past illness Narrative* Problem Noted Date Diagnosed Date Resolved Date Polyp of colon 01/27/2021 01/27/2021 Encounter for gynecological examination without abnormal finding 10/21/2015 12/02/2015 [facility]: [facility]. Family history of colon cancer 01/07/2015 01/27/2021 [...] of this encounter (statuses as of 02/14/2023) [facility] of Past illness Narrative* [...] of this encounter (statuses as of 2023) [facility] of Past illness Narrative* [...] of this encounter (statuses as of 02/26/2023) [facility] of Past illness Narrative* Problem Noted Date Diagnosed Date Resolved Date Polyp of colon 01/27/2021 01/27/2021 Encounter for gynecological examination without abnormal finding 10/21/2015 12/02/2015 [facility]: [facility] Family history of colon cancer 01/07/2015 [...] encounter (statuses as of 04/08/2023) [facility] illness Narrative* Problem Noted Date Diagnosed Date Resolved Date Polyp of colon 01/27/2021 01/27/2021 Encounter for gynecological examination without abnormal finding 10/21/2015 12/02/2015 [facility]: [facility]. Family history of colon cancer 01/07/2015 01/27/2021 [...] encounter (statuses as of 04/08/2023) [facility] illness Narrative* Problem Noted Date Diagnosed Date Resolved Date Polyp of colon 01/27/2021 01/27/2021 Encounter for gynecological examination without abnormal finding 10/21/2015 12/02/2015 [facility]: [facility] Family history of colon cancer 01/07/2015 [...] encounter (statuses as of 04/08/2023) [facility] of Past illness Narrative* Problem Noted Date Diagnosed Date Resolved Date Polyp of colon 01/27/2021 01/27/2021 Encounter for gynecological examination without abnormal finding 10/21/2015 12/02/2015 [facility]: [facility] Family history of colon cancer 01/07/2015 [...] encounter (statuses as of 07/25/2023) [facility] of [facility] illness Narrative* Problem Noted Date Diagnosed Date Resolved Date Polyp of colon 01/27/2021 01/27/2021 Encounter for gynecological examination without abnormal finding 10/21/2015 12/02/2015 Overview: [facility]. Family history of colon cancer 01/07/2015 [...] as of this encounter (statuses as of 08/01/2023) [facility] of Past illness Narrative* Problem Noted Date Diagnosed Date Resolved Date Polyp of colon 01/27/2021 01/27/2021 Encounter for gynecological examination without abnormal finding 10/21/2015 12/02/2015 [facility]: [facility] Family history of colon cancer 01/07/2015 01/27/2021 [...] as of this encounter (statuses as of 08/21/2023) [facility] of Past illness Narrative* Problem Noted Date Diagnosed Date Resolved Date Polyp of colon 01/27/2021 01/27/2021 Encounter for gynecological examination without abnormal finding 10/21/2015 12/02/2015 [facility]: [facility] Family history of colon cancer 01/07/2015 [...] as of this encounter (statuses as of 09/04/2023) [facility] illness Narrative* Problem Noted Date Diagnosed Date Resolved Date Polyp of colon 01/27/2021 01/27/2021 Encounter for gynecological examination without abnormal finding 10/21/2015 12/02/2015 [facility]: [facility] Family history of colon cancer 01/07/2015 [...] as of this encounter (statuses as of 09/18/2023) [facility] illness Narrative* Problem Noted Date Diagnosed Date Resolved Date Polyp of colon 01/27/2021 01/27/2021 Encounter for gynecological examination without abnormal finding 10/21/2015 12/02/2015 [facility]: [facility]. Family history of colon [...] as of this encounter (statuses as of 09/21/2023) [facility] of Past illness Narrative* Problem Noted Date Diagnosed Date Resolved Date Polyp of colon 01/27/2021 01/27/2021 Encounter for gynecological examination without abnormal finding 10/21/2015 12/02/2015 [facility]: [facility] Family history of colon cancer 01/07/2015 [...] as of this encounter (statuses as of 09/07/2023) [facility] noteNo assessment information availableWAdams [facility] Work Phone: evaluation note* Diagnosis Encounter for gynecological examination (general) (routine) without abnormal findings- Primary Encounter for screening mammogram for breast cancer documented in this encounter [facility] note* Diagnosis Abnormal mammogram- Primary Abnormal mammogram, unspecified documented in this encounter [facility] note* Diagnosis Encounter for screening mammogram for breast cancer documented in this encounter [facility] note* Diagnosis Medicare annual wellness visit, initial- Primary Routine general medical examination at a health care facility Essential hypertension Unspecified essential hypertension Mixed hyperlipidemia Anemia of chronic disease Anemia of other chronic disease Stage 3a chronic kidney disease (HCC) Celiac disease Well adult exam Routine general medical examination at a [facility] care facility documented in this encounter [facility] note* Diagnosis Bacterial pneumonia- Primary Bacterial pneumonia, unspecified documented in this encounter [facility] note* Diagnosis Bacterial pneumonia- Primary Bacterial pneumonia, unspecified documented in this encounter [facility] note* Diagnosis Bacterial pneumonia- Primary Bacterial pneumonia, unspecified documented in this encounter [facility] note* Diagnosis Bacterial pneumonia- Primary Bacterial pneumonia, unspecified documented in this encounter [facility] note* Diagnosis Abnormal mammogram- Primary Abnormal mammogram, unspecified documented in this encounter [facility] note* Diagnosis Acute pansinusitis, recurrence not specified- Primary documented in this encounter [facility] note* Diagnosis Encounter for screening mammogram for breast cancer documented in this encounter [facility] note* Diagnosis Abnormal mammogram Abnormal mammogram, unspecified documented in this encounter [facility] note* Diagnosis Abnormal mammogram Abnormal mammogram, unspecified documented in this encounter [facility] note* Diagnosis Onset Date Resolution Status GABRIELLE (acute kidney injury) ac [place] Hypoxia acute Pneumonia acute Right renal mass acute [facility] Work Phone: evaluation note* Diagnosis Onset Date Resolution Status GABRIELLE (acute kidney injury) ac [place] Bone lesion acute Hypoxia acute Pneumonia acute Right renal mass acute [facility] Work Phone: Evaluation note* Diagnosis Onset Date Resolution Status Right renal mass acute GABRIELLE (acute kidney injury) re solved Hypoxia resolved Pneumonia resolved Abnormal echocardiogram acut e Essential hypertension acute Right renal mass acute [facility] Work Phone: Evaluation note* Diagnosis Anemia, unspecified type- Primary Medication management Encounter for long-term (current) use of other medications Malignant neoplasm of right kidney, except renal pelvis (HCC) Malignant neoplasm of kidney, except pelvis documented [facility] this encounter [facility]* Diagnosis Anemia, unspecified type- Primary documented in this encounter [facility]* Diagnosis Bacterial sinusitis- Primary Unspecified sinusitis (chronic) [facility]* Diagnosis Bacterial pneumonia Bacterial pneumonia, unspecified documented in this encounter [facility] note* Diagnosis Acute cough [facility]* Diagnosis Encounter for Medicare annual wellness exam- Primary Routine general medical examination at a health care facility Essential hypertension Unspecified essential hypertension Mixed hyperlipidemia Stage 3a chronic kidney disease (HCC) Anemia of chronic disease Anemia of other chronic disease Sjogren's syndrome, with unspecified organ involvement (HCC) Malignant neoplasm of right kidney, except renal pelvis (HCC) Malignant neoplasm of kidney, except pelvis Advance directive discussed with patient Other specified counseling Screening for depression Encounter for screening examination for other mental health and behavioral disorders Need for vaccination Need for prophylactic vaccination and inoculation against unspecified single disease Upper respiratory tract infection, unspecified type Encounter for screening for diabetes mellitus Screening for diabetes mellitus Medication management Encounter for long-term (current) use of other medications [facility] Diagnosis Encounter for gynecological examination (general) (routine) without abnormal findings- Primary Encounter for screening mammogram for breast cancer [facility] Diagnosis Encounter for screening mammogram for malignant neoplasm of breast Other screening mammogram documented [facility] this [facility] Diagnosis Abnormal EKG- Primary Nonspecific abnormal electrocardiogram (ECG) (EKG) Renal mass Unspecified disorder of kidney and ureter Stage 3a chronic kidney disease (HCC) documented in this encounter [facility] Discharge instructions Additional Instructions [facility]: Reason for referral (narrative)* Diagnostic Procedure Only (Routine) - Pending Review Specialty Diagnoses / Procedures Referred By Gal t Referred To Contact [facility] Diagnoses Encounter for screening mammogram for breast cancer Procedures SUSHIL SCREENING SCREENING MAMMOGRAPHY BI 2-VIEW BREAST INC CAD Mindi Thomas APRN.HAND WOOD SANDER [address] [place] [address] [facility] [address] [place] [address] Referral ID Status Reason Start Date Expiration Date Visits Requested Visits Authorized [id number] Pending Review Auto-Generat ed Referral 01/13/2022 02/12/2023 1 1 [facility] for referral (narrative)* Diagnostic Procedure Only (Routine) - Authorized Specialty Diagnoses / Procedures Referred By Gal trevino Referred To Contact [facility] Diagnoses Abnormal mammogram Procedures US BREAST LTD RT US BREAST UNI REAL TIME WITH IMAGE LIMITED Mindi Thomas APRN.HAND WOOD SANDER [address] [place] [address] [facility] [address] [place] [address] Referral ID Status Reason Start Date Expiration Date Visits Requested Visits Authorized [id number] Authorized Auto-Generat ed Referral 01/13/2022 02/12/2023 1 1 * Diagnostic Procedure Only (Routine) - Authorized Specialty Diagnoses / Procedures Referred By Gal trevino Referred To Contact [facility] Diagnoses Abnormal mammogram Procedures SUSHIL DIAGNOSTIC RT DIAGNOSTIC MAMMOGRAPHY COMPUTER-AIDED DETCJ UNI Mindi Thomas APRN.HAND WOOD SANDER [address] [place] [address] [facility] [address] [place] [address] Referral ID Status Reason Start Date Expiration Date Visits Requested Visits Authorized [id number] Authorized Auto-Generat ed Referral 01/13/2022 02/12/2023 1 1 [facility] for referral (narrative)* Diagnostic Procedure Only (Routine) - Closed Specialty Diagnoses / Procedures Referred By Gal t Referred To Contact [facility] Diagnoses Encounter for screening mammogram for breast cancer Procedures SUSHIL SCREENING SCREENING MAMMOGRAPHY BI 2-VIEW BREAST INC CAD Mindi Thomas APRN.HAND WOOD SANDER [address] [place] [address] [facility] [address] [place] [address] Referral ID Status Reason Start Date Expiration Date V isits Requested Visits Authorized [id number] Closed Auto-Generate d Referral 01/04/2021 02/03/2022 1 1 [facility] for referral (narrative)* Outpatient Procedure (Routine) - Pending Review Specialty Diagnoses / Procedures Referred By Franciscaac t Referred To [facility] Diagnoses Medicare annual wellness visit, initial Procedures ECG COMPLETE ECG ROUTINE ECG W/LEAST 12 LDS W/I&R Pedrito Mcdaniel APRN.HAND WOOD SANDER [address] [place] [address] [facility] [address] [place] [address] Referral ID Status Reason Start Date Expiration Date Visits Requested Visits Authorized [id number] Pending Review Auto-Generat ed Referral 08/10/2022 08/10/2023 1 1 [facility] for referral (narrative)* Diagnostic Procedure Only (Routine) - Pending Review Specialty Diagnoses / Procedures Referred By Franciscaac t Referred To Contact [facility] Diagnoses Abnormal mammogram Procedures US BREAST LTD RIGHT US BREAST UNI REAL TIME WITH IMAGE LIMITED Mindi Thomas APRN.HAND WOOD SANDER [address] [place] [address] [facility] [address] [place] [address] Referral ID Status Reason Start Date Expiration Date Visits Requested Visits Authorized [id number] Pending Review Auto-Generat ed Referral 02/13/2023 03/14/2024 1 1 * Diagnostic Procedure Only (Routine) - Authorized Specialty Diagnoses / Procedures Referred By Gal t Referred To Contact [facility] Diagnoses Abnormal mammogram Procedures SUSHIL DIAGNOSTIC RIGHT DIAGNOSTIC MAMMOGRAPHY COMPUTER-AIDED DETCJ UNI Mindi Thomas APRN.HAND WOOD SANDER [address] [place] [address] [facility] [address] [place] [address] Referral ID Status Reason Start Date Expiration Date Visits Requested Visits Authorized [id number] Authorized Auto-Generat ed Referral 02/13/2023 03/14/2024 1 1 [facility] for referral (narrative)* Diagnostic Procedure Only (Routine) - Closed Specialty Diagnoses / Procedures Referred By Gal t Referred To Contact [facility] Diagnoses Encounter for screening mammogram for breast cancer Procedures SUSHIL SCREENING SCREENING MAMMOGRAPHY BI 2-VIEW BREAST INC CAD Mindi Thomas APRN.HAND WOOD SANDER [address] [place] [address] [facility] [address] [place] [address] Referral ID Status Reason Start Date Expiration Date V isits Requested Visits Authorized [id number] Closed Auto-Generate d Referral 01/13/2022 02/12/2023 1 1 [facility] for referral (narrative)* Diagnostic Procedure Only (Routine) - Closed Specialty Diagnoses / Procedures Referred By Gal t Referred To Contact [facility] Diagnoses Abnormal mammogram Procedures US BREAST LTD RIGHT US BREAST UNI REAL TIME WITH IMAGE LIMITED Mindi Thomas APRN.HAND WOOD SANDER [address] [place] [address] [facility] [address] [place] [address] Referral ID Status Reason Start Date Expiration Date V isits Requested Visits Authorized [id number] Closed Auto-Generate d Referral 02/13/2023 03/14/2024 1 1 [facility] for referral (narrative)* Diagnostic Procedure Only (Routine) - Authorized Specialty Diagnoses / Procedures Referred By Gal t Referred To Contact [facility] Diagnoses Encounter for gynecological examination (general) (routine) without abnormal findings Encounter for screening mammogram for breast cancer Procedures SUSHIL SCREENING W B[place] SCREENING DIGITAL BREAST TOMOSYNTHESIS BI SCREENING MAMMOGRAPHY BI 2-VIEW BREAST INC CAD WilliamMindi, MANAGER PARTY.HAND WOOD SANDER [address] [place] [address] [facility] [address] [place] [address] Referral ID Status Reason Start Date Expiration Date Visits Requested Visits Authorized [id number] Authorized Auto-Generat ed Referral 04/20/2025 1 1 [facility] for visit Narrative* Diagnostic Procedure Only (Routine) - Closed Specialty Diagnoses / Procedures Referred By Gal trevino Referred To Contact [facility] Diagnoses Encounter for screening mammogram for breast cancer Procedures SUSHIL SCREENING SCREENING MAMMOGRAPHY BI 2-VIEW BREAST INC CAD ScioMindi, MANAGER PARTY.HAND WOOD SANDER [address] [place] [address] [facility] [address] [place] [address] Referral ID Status Reason Start Date Expiration Date V isits Requested Visits Authorized [id number] Closed Auto-Generate d Referral 01/04/2021 02/03/2022 1 1 [facility] for visit Narrative* Diagnostic Procedure Only (Routine) - Closed Specialty Diagnoses / Procedures Referred By Gal t Referred To Contact [facility] Diagnoses Encounter for screening mammogram for breast cancer Procedures SUSHIL SCREENING SCREENING MAMMOGRAPHY BI 2-VIEW BREAST INC CAD ScioMindi, MANAGER PARTY.HAND WOOD SANDER [address] [place] [address] [facility] [address] [place] [address] Referral ID Status Reason Start Date Expiration Date V isits Requested Visits Authorized [id number] Closed Auto-Generate d Referral 01/13/2022 02/12/2023 1 1 [facility] for visit Narrative* Diagnostic Procedure Only (Routine) - Closed Specialty Diagnoses / Procedures Referred By Gal t Referred To Contact [facility] Diagnoses Abnormal mammogram Procedures SUSHIL DIAGNOSTIC RIGHT DIAGNOSTIC MAMMOGRAPHY COMPUTER-AIDED DETCJ UNI [facility], MANAGER PARTY.HAND WOOD SANDER [address] [facility] [place] [address] [facility] [address] [place] [address] Referral ID Status Reason Start Date Expiration Date V isits Requested Visits Authorized [id number] Closed Auto-Generate d Referral 02/13/2023 03/14/2024 1 1 [facility] for visit Narrative* Diagnostic Procedure Only (Routine) - Closed Specialty Diagnoses / Procedures Referred By Gal trevino Referred To Contact [facility] Diagnoses Encounter for screening mammogram for malignant neoplasm of breast Procedures SUSHIL SCREENING SCREENING MAMMOGRAPHY BI 2-VIEW BREAST INC CAD [facility], MANAGER PARTY.HAND WOOD SANDER [address] [place] [address] [facility] [address] [place] [address] Referral ID Status Reason Start Date Expiration Date V isits Requested Visits Authorized [id number] Closed Auto-Generate d Referral 11/16/2023 12/15/2024 [address] [facility] Family History No Family History Records Found Relationship Condition Age at Onset Recorded Date/T surya mother Malignant neoplasm of breast Unknown Malignant neoplasm of colon Unknown Malignant neoplasm Unknown Cerebrovascular accident (CVA) Unknown father Congestive heart failure Unknown sister Malignant neoplasm of colon Unknown Relationship Condition Age at Onset Recorded Date/T surya mother Malignant neoplasm of breast Unknown Malignant neoplasm of colon Unknown Malignant neoplasm Unknown Cerebrovascular accident (CVA) Unknown Cardiac disease Unknown father Congestive heart failure Unknown sister Malignant neoplasm of colon Unknown Hypertension Unknown brother Malignant neoplasm of prostate Unknown Advance Directives No Advanced Directives Records Found Advance Directive Response Recorded Date/ Time Advance Directives No September 23, 015 8:38am Living Will No December 04, 2018 1 :05pm Power of Client Support Professional No December 04, 2018 1:05pm Advance Directive Response Recorded Date/ Time Advance Directives No September 23, 2 015 7:38am Living Will No May 25, 023 5:58am Power of Client Support Professional No May 25, 2023 5:58am Advance Directive Response Recorded Date/ Time Advance Directives No September 23, 2 015 7:38am Living Will No May 25, 023 12:40pm Power of Client Support Professional No May 25, 2023 12:40pm Advance Directive Response Recorded Date/ Time Advance Directives No September 23, 2 015 7:38am Living Will No August 01, 024 11:36am Power of Client Support Professional No August 01, 2023 11:36am Advance Directive Response Recorded Date/ Time Advance Directives No September 23 015 8:38am Living Will No August 01, 024 12:36pm Power of Client Support Professional No August 01, 2023 12:36pm Chief Complaint and Reason for Visit Chief Complaint SKIN Chief Complaint BIBASILAR PNEUMONIA WITH A -2.2 CM RENAL MASS OF Reason for Visit GABRIELLE (acute kidney in jury) Hypoxia Pneumonia Right renal mass Chief Complaint BIBASILAR PNEUMONIA WITH A -2.2 CM RENAL MASS OF BIBASILAR PNEUMONIA WITH A -2.2 CM RENAL MASS OF BIBASILAR PNEUMONIA WITH A -2.2 CM RENAL MASS OF BIBASILAR PNEUMONIA WITH A -2.2 CM RENAL MASS OF BIBASILAR PNEUMONIA WITH A -2.2 CM RENAL MASS OF BIBASILAR PNEUMONIA WITH A -2.2 CM RENAL MASS OF Reason for Visit GABRIELLE (acute kidney in jury) Bone lesion Hypoxia Pneumonia Right renal mass Chief Complaint BIBASILAR PNEUMONIA WITH A -2.2 CM RENAL MASS OF BIBASILAR PNEUMONIA WITH A -2.2 CM RENAL MASS OF BIBASILAR PNEUMONIA WITH A -2.2 CM RENAL MASS OF BIBASILAR PNEUMONIA WITH A -2.2 CM RENAL MASS OF BIBASILAR PNEUMONIA WITH A -2.2 CM RENAL MASS OF BIBASILAR PNEUMONIA WITH A -2.2 CM RENAL MASS OF ABN ECHO ([facility]) Neoplasm of uncertain behavior of right kidney Lap Robotic Partial Nephrectomy Reason for Visit Right renal mass GABRIELLE (acute kidney injury) Hypoxia Pneumonia Abnormal echocardiogram Essential hypertension Right renal mass Summary Purpose Additional Source Comments Goals (unrecognized section and content) Goals may be documented in a n alternate sectionGoals may be documented in an alternate sectionGoals may be documented in an alternate sectionGoals may be documented in an alternate section Source Comments (unrecognize d section and content) In the event this informatio n is protected by the Federal Confidentiality of Alcohol and Drug Abuse Patient Records regulations: The Federal rules restrict any use of the information to criminally investigate or prosecute any alcohol or drug abuse patient.[facility] the event this information is protected by the Federal Confidentiality of Alcohol and Drug Abuse Patient Records regulations: The Federal rules restrict any use of the information to criminally investigate or prosecute any alcohol or drug abuse patient.[facility] the event this information is protected by the Federal Confidentiality of Alcohol and Drug Abuse Patient Records regulations: The Federal rules restrict any use of the information to criminally investigate or prosecute any alcohol or drug abuse patient.[facility] the event this information is protected by the Federal Confidentiality of Alcohol and Drug Abuse Patient Records regulations: The Federal rules restrict any use of the information to criminally investigate or prosecute any alcohol or drug abuse patient.[facility] the event this information is protected by the Federal Confidentiality of Alcohol and Drug Abuse Patient Records regulations: The Federal rules restrict any use of the information to criminally investigate or prosecute any alcohol or drug abuse patient.[facility] the event this information is protected by the Federal Confidentiality of Alcohol and Drug Abuse Patient Records regulations: The Federal rules restrict any use of the information to criminally investigate or prosecute any alcohol or drug abuse patient.[facility] the event this information is protected by the Federal Confidentiality of Alcohol and Drug Abuse Patient Records regulations: The Federal rules restrict any use of the information to criminally investigate or prosecute any alcohol or drug abuse patient.[facility] the event this information is protected by the Federal Confidentiality of Alcohol and Drug Abuse Patient Records regulations: The Federal rules restrict any use of the information to criminally investigate or prosecute any alcohol or drug abuse patient.[facility] Center[facility] the event this information is protected by the Federal Confidentiality of Alcohol and Drug Abuse Patient Records regulations: The Federal rules restrict any use of the information to criminally investigate or prosecute any alcohol or drug abuse patient.[facility] the event this information is protected by the Federal Confidentiality of Alcohol and Drug Abuse Patient Records regulations: The Federal rules restrict any use of the information to criminally investigate or prosecute any alcohol or drug abuse patient.[facility] the event this information is protected by the Federal Confidentiality of Alcohol and Drug Abuse Patient Records regulations: The Federal rules restrict any use of the information to criminally investigate or prosecute any alcohol or drug abuse patient.[facility] the event this information is protected by the Federal Confidentiality of Alcohol and Drug Abuse Patient Records regulations: The Federal rules restrict any use of the information to criminally investigate or prosecute any alcohol or drug abuse patient.[facility] the event this information is protected by the Federal Confidentiality of Alcohol and Drug Abuse Patient Records regulations: The Federal rules restrict any use of the information to criminally investigate or prosecute any alcohol or drug abuse patient.[facility] the event this information is protected by the Federal Confidentiality of Alcohol and Drug Abuse Patient Records regulations: The Federal rules restrict any use of the information to criminally investigate or prosecute any alcohol or drug abuse patient.[facility] the event this information is protected by the Federal Confidentiality of Alcohol and Drug Abuse Patient Records regulations: The Federal rules restrict any use of the information to criminally investigate or prosecute any alcohol or drug abuse patient.[facility] CenterIn the event this information is protected by the Federal Confidentiality of Alcohol and Drug Abuse Patient Records regulations: The Federal rules restrict any use of the information to criminally investigate or prosecute any alcohol or drug abuse patient.[facility] CenterIn the event this information is protected by the Federal Confidentiality of Alcohol and Drug Abuse Patient Records regulations: The Federal rules restrict any use of the information to criminally investigate or prosecute any alcohol or drug abuse patient.[facility] CenterIn the event this information is protected by the Federal Confidentiality of Alcohol and Drug Abuse Patient Records regulations: The Federal rules restrict any use of the information to criminally investigate or prosecute any alcohol or drug abuse patient.[facility] CenterIn the event this information is protected by the Federal Confidentiality of Alcohol and Drug Abuse Patient Records regulations: The Federal rules restrict any use of the information to criminally investigate or prosecute any alcohol or drug abuse patient.[facility] CenterIn the event this information is protected by the Federal Confidentiality of Alcohol and Drug Abuse Patient Records regulations: The Federal rules restrict any use of the information to criminally investigate or prosecute any alcohol or drug abuse patient.[facility] CenterIn the event this information is protected by the Federal Confidentiality of Alcohol and Drug Abuse Patient Records regulations: The Federal rules restrict any use of the information to criminally investigate or prosecute any alcohol or drug abuse patient.[facility] CenterIn the event this information is protected by the Federal Confidentiality of Alcohol and Drug Abuse Patient Records regulations: The Federal rules restrict any use of the information to criminally investigate or prosecute any alcohol or drug abuse patient.[facility] CenterIn the event this information is protected by the Federal Confidentiality of Alcohol and Drug Abuse Patient Records regulations: The Federal rules restrict any use of the information to criminally investigate or prosecute any alcohol or drug abuse patient.[facility] CenterIn the event this information is protected by the Federal Confidentiality of Alcohol and Drug Abuse Patient Records regulations: The Federal rules restrict any use of the information to criminally investigate or prosecute any alcohol or drug abuse patient.[facility] CenterIn the event this information is protected by the Federal Confidentiality of Alcohol and Drug Abuse Patient Records regulations: The Federal rules restrict any use of the information to criminally investigate or prosecute any alcohol or drug abuse patient.[facility] CenterIn the event this information is protected by the Federal Confidentiality of Alcohol and Drug Abuse Patient Records regulations: The Federal rules restrict any use of the information to criminally investigate or prosecute any alcohol or drug abuse patient.[facility] CenterIn the event this information is protected by the Federal Confidentiality of Alcohol and Drug Abuse Patient Records regulations: The Federal rules restrict any use of the information to criminally investigate or prosecute any alcohol or drug abuse patient.[facility] CenterIn the event this information is protected by the Federal Confidentiality of Alcohol and Drug Abuse Patient Records regulations: The Federal rules restrict any use of the information to criminally investigate or prosecute any alcohol or drug abuse patient.[facility] CenterIn the event this information is protected by the Federal Confidentiality of Alcohol and Drug Abuse Patient Records regulations: The Federal rules restrict any use of the information to criminally investigate or prosecute any alcohol or drug abuse patient.[facility] CenterIn the event this information is protected by the Federal Confidentiality of Alcohol and Drug Abuse Patient Records regulations: The Federal rules restrict any use of the information to criminally investigate or prosecute any alcohol or drug abuse patient.[facility] CenterIn the event this information is protected by the Federal Confidentiality of Alcohol and Drug Abuse Patient Records regulations: The Federal rules restrict any use of the information to criminally investigate or prosecute any alcohol or drug abuse patient.[facility] CenterIn the event this information is protected by the Federal Confidentiality of Alcohol and Drug Abuse Patient Records regulations: The Federal rules restrict any use of the information to criminally investigate or prosecute any alcohol or drug abuse patient.[facility] CenterIn the event this information is protected by the Federal Confidentiality of Alcohol and Drug Abuse Patient Records regulations: The Federal rules restrict any use of the information to criminally investigate or prosecute any alcohol or drug abuse patient.[facility] CenterIn the event this information is protected by the Federal Confidentiality of Alcohol and Drug Abuse Patient Records regulations: The Federal rules restrict any use of the information to criminally investigate or prosecute any alcohol or drug abuse patient.[facility] CenterIn the event this information is protected by the Federal Confidentiality of Alcohol and Drug Abuse Patient Records regulations: The Federal rules restrict any use of the information to criminally investigate or prosecute any alcohol or drug abuse patient.[facility] the event this information is protected by the Federal Confidentiality of Alcohol and Drug Abuse Patient Records regulations: The Federal rules restrict any use of the information to criminally investigate or prosecute any alcohol or drug abuse patient.[facility] Center[facility] the event this information is protected by the Federal Confidentiality of Alcohol and Drug Abuse Patient Records regulations: The Federal rules restrict any use of the information to criminally investigate or prosecute any alcohol or drug abuse patient.[facility] CenterIn the event this information is protected by the Federal Confidentiality of Alcohol and Drug Abuse Patient Records regulations: The Federal rules restrict any use of the information to criminally investigate or prosecute any alcohol or drug abuse patient.[facility] the event this information is protected by the Federal Confidentiality of Alcohol and Drug Abuse Patient Records regulations: The Federal rules restrict any use of the information to criminally investigate or prosecute any alcohol or drug abuse patient.[facility] CenterIn the event this information is protected by the Federal Confidentiality of Alcohol and Drug Abuse Patient Records regulations: The Federal rules restrict any use of the information to criminally investigate or prosecute any alcohol or drug abuse patient.[facility] CenterIn the event this information is protected by the Federal Confidentiality of Alcohol and Drug Abuse Patient Records regulations: The Federal rules restrict any use of the information to criminally investigate or prosecute any alcohol or drug abuse patient.[facility] CenterIn the event this information is protected by the Federal Confidentiality of Alcohol and Drug Abuse Patient Records regulations: The Federal rules restrict any use of the information to criminally investigate or prosecute any alcohol or drug abuse patient.[facility] CenterIn the event this information is protected by the Federal Confidentiality of Alcohol and Drug Abuse Patient Records regulations: The Federal rules restrict any use of the information to criminally investigate or prosecute any alcohol or drug abuse patient.[facility] CenterIn the event this information is protected by the Federal Confidentiality of Alcohol and Drug Abuse Patient Records regulations: The Federal rules restrict any use of the information to criminally investigate or prosecute any alcohol or drug abuse patient.[facility] CenterIn the event this information is protected by the Federal Confidentiality of Alcohol and Drug Abuse Patient Records regulations: The Federal rules restrict any use of the information to criminally investigate or prosecute any alcohol or drug abuse patient.[facility] CenterIn the event this information is protected by the Federal Confidentiality of Alcohol and Drug Abuse Patient Records regulations: The Federal rules restrict any use of the information to criminally investigate or prosecute any alcohol or drug abuse patient.[facility] CenterIn the event this information is protected by the Federal Confidentiality of Alcohol and Drug Abuse Patient Records regulations: The Federal rules restrict any use of the information to criminally investigate or prosecute any alcohol or drug abuse patient.[facility] CenterIn the event this information is protected by the Federal Confidentiality of Alcohol and Drug Abuse Patient Records regulations: The Federal rules restrict any use of the information to criminally investigate or prosecute any alcohol or drug abuse patient.[facility] Reason for Visit (unrecogniz ed section and content) Reason Comments Yearly Exam With Mammogram Reason Comments Orders Reason Comments Patient Question Reason Onset Date Comments Population Health Navigation Outreach 07/10/2022 [facility] Reason Comments Appointment Reason Comments Medicare Wellness Exam Reason Comments Consult Reason Comments Sinus Problem drainage, nausea and cough x 10 days Reason Comments Recheck cough Reason Comments Results Reason Comments Outside Nephrology Reason Comments Mammogram Result Call Back Reason Comments Sinus Problem Congestion, pressure headache, x 8 days cough Reason Comments Outside [id number] Ordered Reason Comments Radiology US Specialty Diagnoses / Procedures Referred By Gal t Referred To Contact [facility] Diagnoses Abnormal mammogram Procedures US BREAST LTD RIGHT US BREAST UNI REAL TIME WITH IMAGE LIMITED Mindi Thomas APRN.[employer] [address] [place] [address] [facility] [address] [place] [address] Referral ID Status Reason Start Date Expiration Date V isits Requested Visits Authorized [id number] Closed Auto-Generate d Referral 02/13/2023 03/14/2024 1 1 Reason Comments Outside Procedure Discharge Instructi ons, H&P Reason Comments Outside Urology Reason Comments Outside Echo Reason Comments Consult Cardiology Reason Comments Outside Diabetic Eye Exam Reason Comments Cough Facial pressure & pa in, nasal congestion x 10 days, reports chronic cough x 1 month. Reason Comments Results - [facility] Reason Comments Medicare Wellness Exam And extensive Reason Comments Well Woman Reason Comments F/U 3 Month Care Teams (unrecognized sec tion and content) 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 Specialty Start Date End Date Vniny Briones MD [address] [place] [id number] PCP - General Family Practice 11/10/14 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 Specialty Start Date End Date Vinny Briones MD [address] [place] [address] [id number] PCP - General Family Practice 11/10/14 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 Specialty Start Date End Date Vinny Briones MD [address] [place] [id number] PCP - General Family Practice 11/10/14 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 Specialty Start Date End Date Vinny Briones MD [address] [place] [address] [place] [address] PCP - General Family Practice 11/10/14 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 Specialty Start Date End Date Vinny Briones MD [address] [place] [id number] PCP - General Family Practice 11/10/14 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 Specialty Start Date End Date Vinny Briones MD [address] [place] [address] [id number] PCP - General Family Medicine 11/10/14 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 Specialty Start Date End Date Vinny Briones MD [address] [place] [id number] PCP - General Family Medicine 11/10/14 07/10/22 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 Specialty Start Date End Date Vinny Briones MD [address] [place] [address] PCP - General Family Medicine 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 Specialty [place] [address] [place] [id number] PCP - General Family Medicine 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 Specialty Start Date End Date Vinny Briones MD [address] [place] [id number] PCP - General Family Medicine 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 Specialty Start Date End Date Vinny Briones MD [address] [place] [id number] PCP - General Family Medicine 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 Specialty Start Date End Date Vinny Briones MD [address] [place] [address] [id number] PCP - General Family Medicine 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 Specialty Start Date End Date Vinny Briones MD [address] [place] [address] [id number] PCP - General Family Medicine 07/12/22 Team Status: Active Member Role Status Dates Dr. Vinny Briones MD Family Provider Active Dr. Vinny Briones MD Primary Care Provider Active Team Status: Inactive Member Role Status Dates Dr. Vinny Briones MD Primary Care Provider Active Dr. Ly Raygoza DO Attending Provider, Alessia degroot Active 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 Specialty [place] [address] [place] [id number] PCP - General Family Medicine 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 Specialty Start Date End Date Vinny Briones MD [address] [place] [address] PCP - General Family Medicine 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 Specialty Start Date End Date Vinny Briones MD [address] [place] [address] PCP - General Family Medicine 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 Specialty Start Date End Date Vinny Briones MD [address] [place] [address] PCP - General Family Medicine 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 Specialty Start Date End Date Vinny Briones MD [address] [place] [address] PCP - General Family Medicine 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 Specialty Start Date End Date Vinny Briones MD [address] [place] [address] PCP - General Family Medicine 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 Specialty Start Date End Date Vinny Briones MD [address] [place] [address] PCP - General Family Medicine 07/12/22 Team Status: Active Member Role Status Dates Dr. Vinny Briones MD Primary Care Provider Active Dr. Steve Woods DO Emergency Provider Active Dr. Darius Garcia DO Admit Provider, Attending Pr ovider Active Team Status: Active Member Role Status Dates Dr. Vinny Briones MD Primary Care Provider Active Dr. Steve Woods DO Emergency Provider Active Dr. Darius Garcia , Admit Provider, Other Provid er Active Dr. Jason Marques MD Other Provider Active Dr. Darius Zepeda MD Other Provider Active Dr. Ryley Garner MD Other Provider Active Dr. Steven Francisco MD Other Provider Active Dr. Benedicto Mccain MD Other Provider Active Dr. Brent Augustin MD Other Provider Active Dr. Dontae Handy MD Other Provider Active Dr. Derek Obrien DO Other Provider Active Carlotta Adilene MOLECULAR BIOLOGY SCIENTIST, MOLECULAR BIOLOGY SCIENTIST-C Attending Provider, Other Prov ider Active Dr. Garret Longoria MD Other Provider Active Team Status: Active Member Role Status Dates Dr. Vinny Briones MD Primary Care Provider Active Dr. Steve Woods , DO Emergency Provider Active Dr. Darius Gacria , DO Admit Provider, Other Provid er Active Dr. Darius Zepeda MD Other Provider Active Dr. Ryley Garner MD Other Provider Active Dr. Steven Francisco MD Other Provider Active Dr. Benedicto Mccain MD Other Provider Active Dr. Brent Augustin MD Other Provider Active Dr. Dontae Handy MD Other Provider Active Dr. Derek Obrien DO Other Provider Active Carlottadelmi Head MOLECULAR BIOLOGY SCIENTIST, MOLECULAR BIOLOGY SCIENTIST-C Other Provider Active Dr. Garret Longoria MD Other Provider Active Dr. Sandi Arias MD Attending Provider, Other Prov ider Active Dr. Jason Marques MD Other Provider Active Team Status: Active Member Role Status Dates Dr. Vinny Briones MD Primary Care Provider Active Dr. Steve Crouch MD Attending Provider Active Team Status: Active Member Role Status Dates Dr. Vinny Briones MD Primary Care Provider Active Dr. Bolivar Grove MD Attending Provider Active Team Status: Inactive Member Role Status Dates Dr. Vinny Briones MD Primary Care Provider Active Dr. Steve Woods , DO Emergency Provider Active Dr. Darius Garcia , DO Admit Provider, Other Provid er Active Dr. Darius Zepeda MD Other Provider Active Dr. Ryley Garner MD Other Provider Active Dr. Steven Francisco MD Other Provider Active Dr. Benedicto Mccain MD Other Provider Active Dr. Brent Augustin MD Other Provider Active Dr. Dontae Handy MD Other Provider Active Dr. Derek Obrien DO Other Provider Active Carlottadelmi Head MOLECULAR BIOLOGY SCIENTIST, MOLECULAR BIOLOGY SCIENTIST-C Other Provider Active Dr. Garret Longoria MD Other Provider Active Dr. Sandi Arias MD Attending Provider Active Dr. Jason Marques MD Other Provider Active Team Status: Active Member Role Status Dates Dr. Vinny Briones MD Primary Care Provider, Referri ng Provider Active Dr. Steve Woods DO Emergency Provider Active Dr. Darius Garcia DO Admit Provider, Other Provid er Active Dr. Jason Marques MD Other Provider Active Dr. Darius Zepeda MD Other Provider Active Dr. Ryley Garner MD Other Provider Active Dr. Steven Francisco MD Other Provider Active Dr. Benedicto Mccain MD Other Provider Active Dr. Brent Augustin MD Other Provider Active Dr. Dontae Handy MD Other Provider Active Dr. Derek Obrien , Other Provider Active Carlotta Head MOLECULAR BIOLOGY SCIENTIST, MOLECULAR BIOLOGY SCIENTIST-C Attending Provider, Other Prov ider Active Dr. Garret Longoria MD Other Provider Active Team Status: Active Member Role Status Dates Dr. Vinny Briones MD Primary Care Provider Active Dr. Steve Crouch MD Attending Provider Active Dr. Darius Garcia , Referring Provider Active Team Status: Active Member Role Status Dates Dr. Vinny Briones MD Primary Care Provider Active Dr. Bolivar Grove MD Attending Provider, Referring Pr ovider Active Team Status: Inactive Member Role Status Dates Dr. Vinny Briones MD Primary Care Provider, Referri ng Provider Active Dr. Jerald Perez MD Attending Provider Active Team Status: Inactive Member Role Status Dates Dr. Vinny Briones MD Primary Care Provider Active Dr. Garret Longoria MD Attending Provider, Referr ing Provider Active Dr. Steve Baxter MD Other Provider Active Team Status: Inactive Member Role Status Dates Dr. Vinny Briones MD Primary Care Provider Active Dr. Garret Longoria MD Attending Provider, Referr ing Provider Active Team Status: Inactive Member Role Status Dates Dr. Vinny Briones MD Primary Care Provider Active ALEJANDRINA BRYANT Attending Provider Active 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 Specialty Start Date End Date Vinny Briones MD [address] [place] [address] PCP - General Family Medicine 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 Specialty Start Date End Date Vinny Briones MD [address] [place] [address] PCP - General Family Medicine 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 Specialty Start Date End Date Vinny Briones MD [address] [place] [address] PCP - General Family Medicine 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 Specialty Start Date End Date Vinny Briones MD [address] [place] [address] PCP - General Family Medicine 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 Specialty Start Date End Date Vinny Briones MD [address] [place] [address] PCP - General Family Medicine 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 Specialty Start Date End Date Vinny Briones MD [address] [place] [address] PCP - General Family Medicine 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 Specialty Start Date End Date Vinny Briones MD [address] [place] [address] PCP - General Family Medicine 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 Specialty Start Date End Date Vinny Briones MD [address] [place] [address] PCP - General Family Medicine 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 Specialty Start Date End Date Vinny Briones MD [address] [place] [address] PCP - General Family Medicine 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 Specialty Start Date End Date Vinny Briones MD [address] [place] [address] PCP - General Family Medicine 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 Start Date End Date Vinny Briones MD [address] [place], [place] [address] PCP - General Family Medicine 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 [employer] provides no warranty or guarantee of the accuracy or completeness of information in this document.
== END | disposition home or self-care (01) ==
LOC: LAB 12:21
PROVIDERS: PCP Family Medicine; Referring Provider Internal Medicine Nephrology; Visit Provider Internal Medicine Nephrology
DX: N18.31 Chronic kidney disease, stage 3a (principal); D64.9 Anemia, unspecified
CPT/HCPCS: 36415; 80069; 85027

== ENCOUNTER → 2024-12-25 | Outpatient (CLI) | payer MEDICARE, OTHER, SELFPAY ==
--- NOTE | 2024-12-25 16:15 | CT_ITS ---
PROCEDURE: CT ABD/PELVIS W/WO CONTRAST 12/25/2024 REASON FOR EXAM: MALIGNANT NEOPLASM OF RIGHT KIDNEY, EXCEPT RENAL PELVIS TECHNIQUE: CT ABD/PELVIS W/WO CONTRAST Coronal and Sagittal reconstruction series were provided. CONTRAST: Isovue 370 VOLUME: 70 mL One or more dose reduction techniques were used (e.g., Automated exposure control, adjustment of the mA and/or kV according to patient size, use of iterative reconstruction technique. RADIATION DOSE SUMMARY: CTDlvol: 50 mGy DLP: 2266 mGycm COMPARISON: 01/11/2024 FINDINGS: Under aerated lung bases. Interval improvement at the right base with resolution of rounded atelectasis. Multiple noncalcified lung nodules, measuring up to 6 mm, nonspecific. Elective chest CT is recommended. Upper limits of normal heart size. Dilated ascending aorta, 4.1 cm maximum cross-section on partial visualization. Small liver cyst. Status post cholecystectomy. Unremarkable pancreas, spleen, adrenal glands. On the left, there is a stable 1.6 cm staghorn calculus. There is a 1.9 by 1.9 x 1.8 cm exophytic low-density mass, series 3, image 33, previously measured 1.5 x 1.5 x 1.6 cm. Small interval enlargement. On the right, there is a history of a renal mass which is no longer seen. There are multiple simple cysts redemonstrated. Multiple small right renal calcifications. No hydronephrosis or ureteral stone. Unremarkable bladder. Normal uterus and ovaries. No retroperitoneal or pelvic adenopathy. No free air. Small hiatal hernia. Nonobstructed bowel. Normal appendix. Diverticulosis. No acute large bowel findings. Lumbar spine degeneration. Old left-sided rib fracture. No acute abdominal wall findings. CT/CT Abd/Pelvis W/WO Contrast IMPRESSION: Enlarging low-density mass, off the anterior left kidney, suspicious for primar y renal cell carcinoma, slow growing. Continued follow up imaging as clinically determined. Reading Location: [place] [address]
[2024-12-25 16:42] LABS: CREATININE FINGERSTICK 1.5 mg/dL (0.55-1.02); EGFR FINGERSTICK 37.0000 mL/min (>60)
== END | disposition home or self-care (01) ==
LOC: CT 16:14
PROVIDERS: PCP Family Medicine; Referring Provider Urology; Visit Provider Urology
DX: Z01.812 Encounter for preprocedural laboratory examination (principal); C64.1 Malignant neoplasm of right kidney, except renal pelvis
CPT/HCPCS: 74178; Q9967

== ENCOUNTER 2025-02-04 08:50 | Inpatient (IN) | payer MEDICARE, OTHER, SELFPAY ==
[2025-01-09 12:21] LABS: Hematocrit 37.9 % (37-47); Hemoglobin 12.4 g/dL (12.0-15.0); Mean Corp Hgb Conc 32.7 g/dL (32-36); Mean Corpuscular Volume 91.3 fL (81-99); Mean Platelet Vol. 10.0 fl (6.2-12.0); Platelet Count 258 K/mm3 (150-450); RBC Distribution Width CV 13.7 % (11.6-14.6); RBC Distribution Width SD 46.5 fl (35.1-43.9); Red Blood Count 4.15 M/mm3 (4.2-5.4); White Blood Count 5.9 K/mm3 (4.4-11.0)
[2025-01-09 13:08] LABS: Anion Gap 8 (5-15); BUN 16 mg/dL (4-19); BUN/Creat Ratio 12.4 RATIO (10-20); Calcium,Total 9.8 mg/dL (7.6-11.0); Carbon Dioxide 26.1 mmol/L (21.0-32.0); Chloride 103 mmol/L (98-108); Glucose 96 mg/dL (70-99); Potassium 4.4 mmol/L (3.3-5.1)
--- NOTE | 2025-01-21 20:31 | PAT.ANESEVAL ---
Pre-Assessment Diagnosis/Proposed Procedure Planned Operative Procedure(s): LAP ROBOTIC PARTIAL NEPHRECTOMY LEFT Anesthesia History Anesthesia History - screwhead stoner and polisher: Anesthesia History - screwhead stoner and polisher Hx Hospitalization No 01/21/25 14:10 Any Problems With Anesthesia No 01/21/25 14:10 Cholinesterase deficiency No 01/21/25 14:10 You/Your Family Experience No 01/21/25 14:10 fever (hyperthermia) with Relationship Recent Exposure to Contagious No 08/01/23 06:29 Disease Does patient have nerve No 01/21/25 14:10 stimulator Patient instructed to have device shut off --Does patient have Pacemaker or ICD? When Was Last Pacemaker Check QUESTION #4 FULL TEXT: You/Your Family Experience fever (hyperthermia) with Anesthesia Last Oral Intake Last Oral intake: Last Oral Intake NPO since Meds taken in AM with sips of water? Meds patient instructed to take am of surgery PONV PONV - screwhead stoner and polisher: PONV - screwhead stoner and polisher Female Yes 01/21/25 14:10 HX of Motion Sickness No 01/21/25 14:10 HX of N/V After Surgery No 01/21/25 14:10 Non-Smoker Yes 01/21/25 14:10 Duration of Surgery greater Yes 01/21/25 14:10 than 60 minutes Number of Risk Factors 3 01/21/25 14:10 PONV Score Moderate Risk 01/21/25 14:10 Height & Weight Height & Weight: Anesthesia: Height & Weight Height 5 ft 6 in 12/07/23 10:53 Respiratory Assessment Respiratory Assessment - screwhead stoner and polisher: Respiratory Tract Infection Hx - screwhead stoner and polisher Hx Respiratory Tract Infection No 01/21/25 14:10 STOP Sleep Apnea STOP Sleep Apnea - screwhead stoner and polisher: STOP Sleep Apnea - screwhead stoner and polisher Hx Hypertension Yes: CONTROLLED WITH MED 01/21/25 14:10 Hx Sleep Apnea No 01/21/25 14:10 CPAP No 08/01/23 09:45 BIPAP No 12/04/18 13:05 Do you snore loudly (louder No 01/21/25 14:10 than talking or can be heard Do you often feel tired/ No 01/21/25 14:10 fatigued/ sleepy during daytime? Has anyone observed you stop No 01/21/25 14:10 breathing during sleep? STOP Results Negative 01/21/25 14:10 QUESTION #5 FULL TEXT : Do you snore loudly (louder than talking or can be heard through closed doors)? 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 confused, unrespo /Reproduction History /Reproductive History - screwhead stoner and polisher: /Reproductive Hx- screwhead stoner and polisher Hx Now No 01/21/25 14:10 Gestational Age (in weeks): EDC: Hx Hx Para Hx Section SAB No 01/21/25 14:10 PFSH Medical History (Updated 01/21/25 @ 14:18 by Dori Merida) Post-menopausal Rheumatoid arthritis Hypertension Wears glasses Cancer History of renal disease Anemia DVT (deep venous thrombosis) Non-smoker History of echocardiogram Cardiology follow-up encounter History of irregular heartbeat Celiac disease Right renal mass Mixed hyperlipidemia GERD (gastroesophageal reflux disease) Osteoarthritis Sjogren's disease Home Medications Medication Instructions Recorded Last Taken Type calcium 600 mg (as 1 tab PO BIDCM SUPPLEMENT 03/14/13 07/31/23 History carbonate)-vitamin D3 20 mcg (800 unit) tablet fluticasone propionate 50 2 spray NASAL DAILY ALLERGIES 03/14/13 07/31/23 History mcg/actuation nasal spray,suspension omeprazole 20 mg capsule,delayed 20 mg PO DAILY GERD 03/14/13 08/01/23 History release montelukast 10 mg tablet 10 mg PO QHS ALLERGIES 09/23/14 07/31/23 History cholecalciferol (vitamin D3) 50 2,000 unit PO DAILY SUPPLEMENT 09/20/17 07/31/23 History mcg (2,000 unit) capsule hydroxychloroquine 200 mg tablet 200 mg PO DAILY RA 05/24/23 08/01/23 History alendronate sodium 35 mg PO SA BONE HEALTH 06/14/23 07/31/23 History lactobacillus combination no.9 4 4,000 mmu cells PO DAILY SUPPLEMENT 06/14/23 07/31/23 History billion cell capsule (Adult 50 Plus Probiotic) iron, carbonyl 18 mg iron chewable 18 mg PO DAILY SUPPLEMENT 12/07/23 Unknown History tablet mecobalamin (vitamin B12) 1,000 1,000 mcg PO DAILY SUPPLEMENT 12/07/23 Unknown History mcg chewable tablet metoprolol tartrate 25 mg tablet 25 mg PO BID HEART #180 tabs 01/09/25 Unknown Rx Allergy/AdvReac Type Severity Reaction Status Date / Time gluten Allergy Food Verified 01/21/25 14:06 Allergy amoxicillin AdvReac Nausea Verified 01/21/25 14:06 doxycycline AdvReac Other Verified 01/21/25 14:06 erythromycin base AdvReac Nausea Verified 01/21/25 14:06 (Erythromycin Base) hydrocodone bitartrate (From AdvReac Vomiting Verified 01/21/25 14:06 Vicodin) Sulfa (Sulfonamide AdvReac Nausea Verified 01/21/25 14:06 Antibiotics) Family History Mother Breast cancer Colon cancer Cancer skin CVA (cerebral vascular accident) Heart disease aortic valve replacement Father CHF (congestive heart failure) Sister Colon cancer Hypertension Brother Prostate cancer Surgical History (Updated 01/21/25 @ 14:18 by Dori Merida) History of surgery Hx of repair of ear bone S/P ectopic S/P tubal ligation S/P colonoscopy S/P cholecystectomy Social History Smoking Status: Never smoker alcohol intake: never substance use type: does not use caffeine: Yes Type: tea Audit: Pertinent Findings Pertinent Findings EKG Perinent findings: January 09, 2025. Normal sinus rhythm. Left axis deviation. Left ventricular hypertrophy with QRS widening. Cannot rule out septal infarct (cited on or before May 28, 2023) Echo (EF%) pertinent findings: 10/26/2023. EF of 55%. No aortic stenosis. Consult pertinent findings: January 09, 2025. Silv[facility] SHEETS. 1. Abnormal echocardiogram-echo from 2022 after a post viral pneumococcal pneumonia revealed an EF of 50% and multiple wall motion abnormalities. Latest echo from October 26, 2023 showed improved EF to 55% and no wall motion abnormalities. She appears stable at this time. Continue metoprolol twice daily. 2. Hypertension–well-controlled. 3. Right renal mass-resected completely as it was fully encapsulated. 4. Left renal mass-to be resected 02/04/2025. From a cardiac standpoint patient may proceed with surgery. Recommendation Anesthesia Recommendation Anesthesia recommendation: OPTIMIZED for anesthesia
[2025-02-04] VITALS (17 sets, daily range): BP systolic 100–122; BP diastolic 56–81; PULSE 65–88; RESP 16–18; TEMP 36.1–37.4; O2SAT 92–100; BMI 23.1
--- OUTSIDE RECORDS SUMMARY | 2025-02-04 05:56 | XMS RPT_ITS | CCD ---
Author Organization [facility] CliniSyde Care Team Providers Care Tomato Pulper Operator Name Role Phone Vinny Briones MD Primary Care Provider Dr. Vinny Briones Primary Care Provider Dr. Steve Crouch Attending Provider Dr. Steve Woods Emergency Provider Dr. Darisu Garcia Admit Provider Unavailabl e Dr. Darius Garcia Other Provider Unavailabl e Dr. Jason Marques Other Provider Dr. Darius Zepeda Other Provider Dr. Ryley Garner Other Provider Dr. Steven Francisco Other Provider Dr. Benedicto Mccain Other Provider Dr. Brent Augustin Other Provider Unavailable Dr. Dontae Handy Other Provider Dr. Derek Obrien Other Provider Adilene ECO INDUSTRIAL DEVELOPMENT CONSULTANT, ECO INDUSTRIAL DEVELOPMENT CONSULTANT-C Carlotta Attending Provider Adilene ECO INDUSTRIAL DEVELOPMENT CONSULTANT, ECO INDUSTRIAL DEVELOPMENT CONSULTANT-C Carlotta Other Provider Dr. Garret Longoria Other Provider Dr. Sandi Arias Attending Provider Dr. Sandi Arias Other Provider [phone] Bolivar [...] Provider Dr. Derek Obrien Other Provider Adilene ECO INDUSTRIAL DEVELOPMENT CONSULTANT, ECO INDUSTRIAL DEVELOPMENT CONSULTANT-C Carlotta Attending Provider Adilene ECO INDUSTRIAL DEVELOPMENT CONSULTANT, ECO INDUSTRIAL DEVELOPMENT CONSULTANT-C Carlotta Other Provider Dr. Garret Longoria Other Provider Dr. Sandi Arias Attending Provider Dr. Sandi Arias Other Provider Dr. Boliavr Grove Attending Provider Dr. Bolivar Grove Referring Provider Dr. Jerald Perez Attending Provider Vinny Briones MD Primary Care Provider Yakelin [email or web address].JAVA LEAD ARCHITECT, Alicia Unavailable Yokasta Mcnulty PA-C Unavailable Dr. Vinny Briones MD Primary Care Provider Dr. Ly Raygoza DO Attending Provider Dr. Ly Raygoza DO Referring Provider Von SINGLETARY, Dr. Garret Vale Attending Provider Von SINGLETARY, Dr. Garret Vale Referring Provider Anali SINGLETARY, Dr. Casillas Referring Provider Silvano ECO INDUSTRIAL DEVELOPMENT CONSULTANT-CJessica Attending Provider MARIELLE BRIONESREY A Attending Unavailable ANALI, VINNY A Primary Care Unavailable ANALI, VINNY A Primary Care Unavailable WILLIAM, MINDI Referring Unavailable ANALI, VINNY A Primary Care Unavailable SELF Referring Unavailable WILLIAM, MINDI Attending Unavailable ANALI, VINNY A Primary Care Unavailable WILLIAM, MINDI Referring Unavailable ANALI, VINNY A Primary Care Unavailable ANALI, VINNY A Referring Unavailable Anali, Vinyn Primary Care Unavailable Garret Longoria Attending Unavailable Von, Garret Vale Referring Unavailable Ly Raygoza Attending Unavailable Ly Raygoza Referring Unavailable Anali, Vinny Primary Care Unavailable Anali, Vinny Primary Care Unavailable VonGarret Attending Unavailable VonGarret Referring Unavailable Anali, Vinny Primary Care Unavailable Anali, Vinny Referring Unavailable Jessica Schaefer NP Attending Unavailable Anali, Vinny Primary Care Unavailable VonGarret Admitting Unavailable VonGarret Attending Unavailable VonGarret Referring Unavailable Allergies Allergy Classification Reported Allergen(s) Allergy Type Date of Onset Reaction(s) Facility aMILoride / hydroCHLOROthiazide (1 source) aMILoride / hydroCHLOROthiazide Drug Allergy 006 Intolerance [facility] Amoxicillin / Clavulanate (1 source) Amoxicillin / Clavulanate Drug Allergy 005 GI Upset [facility] Angiotensin Converting Enzyme (NOAH) Inhibitors (1 source) Lisinopril Drug Allergy 011 Cough [facility] Cephalosporins (antibiotic) (1 source) Cephalexin Drug Allergy 006 Intolerance [facility] Doxycycline (1 source) Doxycycline Drug Allergy 005 Unknown [facility] Work Phone: Macrolides (antibiotic) (1 source) Erythromycin Drug Allergy 023 GI Upset [facility] Penicillins (antibiotic) (1 source) Amoxicillin Drug Allergy 016 Rash [facility] Work Phone: Pollen (1 source) Grass pollen Substance Allergy Unknown [facility] Sulfonamides (antibiotic) (1 source) Sulfonamides (Antibiotic) Drug Allergy 009 Rash [facility] (20 sources) Amoxicillin; Translations: [AMOXICILLIN] Drug Allergy 016 Rash [facility] Work Phone: (20 sources) Doxycycline Drug Allergy 005 Other: See Comments, Unknown [facility] Work Phone: (20 sources) Erythromycin Drug Allergy 019 GI Upset [facility] (11 sources) HYDROcodone; Translations: [hydrocodone bitartrate] Drug Allergy 019 Vomiting [facility] (20 sources) Sulfonamides (Antibiotic); Translations: [SULFA (SULFONAMIDE ANTIBIOTICS)] Propensity to adverse reactions Rash [facility] Work Phone: (20 sources) aMILoride / hydroCHLOROthiazide; Translations: [AMILORIDE-HYDROCHLOR OTHIAZIDE] Drug Allergy 006 Intolerance [facility] Work Phone: (20 sources) Amoxicillin / Clavulanate; Translations: [AMOXICILLIN-POT CLAVULANATE] Drug Allergy 005 GI Upset [facility] Work Phone: (20 sources) Cephalexin; Translations: [CEPHALEXIN] Drug Allergy 006 Intolerance [facility] Work Phone: (20 sources) Grass pollen; Translations: [GRASS POLLEN] Drug Allergy 006 Unknown [facility] Work Phone: (20 sources) House dust mite; Translations: [DUST MITES] Allergy to substance Unknown [facility] Work Phone: (20 sources) Lisinopril; Translations: [LISINOPRIL] Drug Allergy 011 Cough [facility] Work Phone: (20 sources) Tree; Translations: [TREES] Allergy to substance Unknown [facility] Work Phone: (20 sources) ERYTHRAMYCIN [Other] Propensity to adverse reactions GI Upset [facility] Work Phone: (6 sources) Wheat gluten extract Drug Allergy Food Allergy [facility] (1 source) Erythromycin; Translations: [ERYTHROMYCIN] Drug Allergy [facility] (1 source) Amoxicillin Drug Allergy [facility] (1 source) Doxycycline Drug Allergy [facility] (1 source) Erythromycin Drug Allergy [facility] (1 source) Gluten Drug allergy (disorder) [facility] Medications Current Medications Medication Drug Class(es) Dates Sig (Normalized) Sig (Original) alendronic acid 35 mg oral tablet (20 sources) Bisphosphonate Start: 06-14-2023 alendronate sodium 35 mg Active 35 mg PO SA June 14, 2023 1:00am Comment [...] mg / cholecalciferol 0.01 mg oral tablet (10 sources) Vitamin D Start: 03-14-2013 Calcium Carbonate-Vitamin D3 1 TAB tablet Active 1 {tbl} PO TWICE DAILY WITH MEALS March 14, [...] above: Take 1 tablet by mago th twice daily for 7 days. cholecalciferol 0.05 mg oral capsule (20 sources) Vitamin D Start: 09-20-2017 take 1 capsule by mouth once daily Cholecalciferol (Vitamin D3) 2,000 UNIT capsule Active 2000 U PO DAILY September 20, 2017 12:00am Comment on above: Take 1 tablet by mago th once daily. doxycycline hyclate 100 mg oral tablet (6 [...] above: Take 1 tablet by mago th twice daily for 7 days. ferrous sulfate (8 sources) take 18 mg by mouth once daily ferrous sulfate (IRON ORAL) Take 18 mg by mouth once daily. Active fluticasone propionate 0.05 mg/actuat metered dose nasal spray (20 sources) Corticosteroid Start: 3 Fluticasone Propionate 1 SPRAY spray,suspension Active 2 NMA NASAL DAILY March 14, 2013 12:00am Start: 03-14-2013 Fluticasone Pr opionate Active 2 SPRAY NASAL DAILY March 14, 2013 12:00am Start: 07-21-2012 take 2 spray(s) by m outh once daily fluticasone 50 mcg/actuation nasal spray Use 2 Sprays in each nostril once daily. Rinse mouth after use. 0 07/21/2012 Active Comment on above: Use 2 Sprays in each nostril once daily. Rinse mouth after use. hydroxychloroquine sulfate 200 mg oral tablet (20 sources) Antimalarial, Antirheumatic Agent Start: 2019 take 1 tablet by mouth once daily Hydroxychloroquine 200 mg tablet Active 200 mg PO DAILY May 24, 2023 1:00am Comment on above: One tab odd days and two tabs even days, per Rheum, Dr. Faria iron carbonyl 18 mg chewable tablet (3 sources) Start: 2023 take 1 tablet by mouth once daily Iron, Carbonyl 18 mg iron tablet,chewable Active 18 mg PO DAILY December 07, 2023 12:00am L.acidophil/L.plantar/Bi fido 7 (UP4 PROBIOTICS ADULT ORAL) (20 sources) L.acidophil/L.pl camilo/Bi fido 7 (UP4 PROBIOTICS ADULT ORAL) Take by mouth. Active L.acidophil/L.pl camilo/Bifido 7 (UP4 PROBIOTICS ADULT ORAL) Take by mouth. 0 Active Comment on above: Take by mouth. Lactobacillus Combination No.9 (Adult 50 Plus Probiotic) 4 billion cell capsule (5 sources) Start: take 4 capsules by mouth once daily Lactobacillus Combination No.9 (Adult 50 Plus Probiotic) 4 billion cell capsule Active 4000 NMA PO DAILY June 14, 2023 1:00am administer [...] 14, 2023 12:00am administer with a meal mecobalamin 1 mg chewable tablet (3 sources) Start: 12-07-2023 take 1 tablet by mouth once daily Mecobalamin (Vitamin B12) 1,000 mcg tablet,chewable Active 1000 ug PO DAILY December 07, 2023 12:00am metoprolol tartrate 25 mg oral tablet (20 sources) beta-Adrenergi c Jason Start: 05-29-2023 take 1 tablet by mouth every twelve hours metoprolol tartrate, short acting, (LOPRESSOR) 25 mg tablet Take 1 tablet by mouth every 12 hours. 05/29/2023 Active Start: 05-29-2023 End: 01-09-2025 take 1 tablet by mouth twice daily Metoprolol Tartrate 25 mg tablet Active 25 mg PO TWICE A DAY 180 3 January 09, 2025 11:40am Comment on above: Take 1 tablet by [facility] every 12 hours. montelukast 10 mg oral tablet (20 sources) Leukotriene Receptor Antagonist Start: 8 take 1 tablet by mouth once daily Montelukast 10 MG tablet Active 10 mg PO DAILY September 23, 2014 12:00am ALLERGIES Comment on above: take one tablet at b edtime omeprazole 20 mg delayed release oral capsule (20 sources) Proton Pump Inhibitor Start: 1 take 1 capsule by mouth once daily Omeprazole 20 MG capsule Active 20 mg PO DAILY March 14, 2013 12:00am Comment on above: Take 1 capsule by [facility] once daily. polyethylene glycol 3350 14024 mg powder for oral solution (1 source) Osmotic Laxative Start: 1 End: 2 polyethylene glycol 3350 (MIRALAX, GLYCOLAX) 17 gram/dose powder Use as directed for Miralax / Gatorade Bowel Prep Kit 238 g 0 01/13/2021 01/13/2022 Discontinued (Course of therapy completed) Comment on above: Use as directed for Miralax / Gatorade Bowel Prep Kit sodium bicarbonate 650 mg oral tablet (20 sources) Start: 7 take 1 tablet by mouth once daily sodium bicarbonate 650 mg tablet Take 1 tablet by mouth once daily. 06/16/2016 Active Comment on above: Take 1 tablet by mago once daily. Completed/Discontinued Medications Medication Drug Class(es) Dates Sig (Normalized) Sig (Original) [id number] 200 actuat albuterol 0.09 mg/actuat metered dose [...] on above: Take 1 capsule by [facility] three times daily as needed for cough. Take 2 capsules by m out three times a day as needed. cyclobenzaprine hydrochloride 10 mg oral tablet (5 sources) Muscle Relaxant Start: 023 End: take 1 tablet by mouth every eight hours as needed cyclobenzaprine (FLEXERIL) 10 mg tablet Take 1 tablet by mouth three times a day as needed for muscle spasm. 10 tablet 0 05/22/2023 09/07/2023 Discontinued Comment on above: Take 1 tablet by mago th three times a day as needed for muscle spasm. docusate sodium 100 mg oral capsule (5 sources) Start: End: take 1 capsule by mouth twice daily Docusate Sodium (Colace) 100 mg capsule Discontinued 100 mg PO TWICE A DAY August 01, 2023 1:00am December 07, 2023 10:55am levoFLOXacin 500 mg oral tablet (6 sources) Quinolone Antimicrobial Start: End: take 1 tablet by mouth once daily Levofloxacin 500 mg tablet Discontinued 500 mg PO DAILY May 29, 2023 1:00am June [...] every 12 hours as needed for nausea/vomiting. oxyCODONE hydrochloride 5 mg oral tablet (5 sources) Opioid Agonist Start: 08-01-19 End: 12-07-19 take 1 tablet by mouth every six hours as needed for pain Oxycodone 5 mg tablet Discontinued 5 mg PO EVERY 6 HOURS as needed for pain 10 7 August 01, 2023 December 07, 2023 10:55am Renal mass Other specified disorders of kidney and ureter promethazine hydrochloride 25 mg oral tablet (20 sources) Phenothiazine Start: 02-14-20 End: 05-22-20 take 1 tablet by mouth every six [...] te Episodic/Chronic Acute and unspecified renal failure (11 sources) Acute renal failure syndrome; Translations: [Acute kidney failure, unspecified] 05-25-2023 Episodic Calculus of urinary tract (1 source) Calculus of kidney; Translations: [Calculus of kidney] Onset: 5 Episodic Cancer of kidney and renal pelvis (20 sources) Malignant tumor of kidney; Translations: [Malignant neoplasm of right kidney, except renal pelvis] Onset: 4 09-17-2023 Chronic Chronic kidney disease (20 sources) Chronic kidney disease stage 3; Translations: [CKD (chronic kidney disease) stage 3, GFR 30-59 ml/min] Onset: 5 05-30-2021 Chronic Chronic kidney disease (2 sources) Chronic kidney disease; Translations: [Stage 3a chronic kidney disease (HCC)] Onset: 1 Deficiency and other anemia (20 sources) Anemia of chronic disease; Translations: [Anemia in other chronic diseases classified elsewhere] Onset: 5 05-30-2021 Chronic Deficiency and other anemia (1 source) Anemia in other chronic diseases classified elsewhere; Translations: [Anemia of chronic disease] Onset: 1 Chronic Deficiency and other anemia (2 sources) Anemia; Translations: [Anemia, unspecified] 09-17-2023 Episodic Disorders of lipid metabolism (20 sources) Mixed hyperlipidemia; Translations: [Mixed hyperlipidemia] Onset: 8 07-30-2017 Chronic Diverticulosis and diverticulitis (20 sources) Diverticulosis of colon; Translations: [Diverticulosis of large intestine without perforation or abscess without bleeding] Onset: 6 Resolved: 7 08-07-2018 Chronic Esophageal disorders (20 sources) Gastroesophageal reflux disease without esophagitis; Translations: [Gastro-esophageal reflux disease without esophagitis] Onset: 5 Resolved: 2 12-12-2018 Chronic Essential hypertension (20 sources) Essential hypertension; Translations: [Essential (primary) hypertension] Onset: 8 07-30-2017 Chronic Immunity disorders (20 sources) Polyclonal gammopathy; 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 ] Onset: 4 06-26-2016 Chronic Osteoporosis (6 sources) Osteoporosis; Translations: [Age-related osteoporosis without current pathological fracture] Onset: 4 03-21-2024 Chronic Other and unspecified benign neoplasm (20 sources) History of polyp of colon; Translations: [Personal history of colonic polyps] Onset: 9 Resolved: 7 08-07-2018 Episodic Other bone disease and musculoskeletal deformities (7 sources) Disorder of bone, unspecified; Translations: [Bone lesion] 05-25-2023 Episodic Other diseases of kidney and ureters (15 sources) Renal mass; Translations: [Other specified disorders of kidney and ureter] 05-25-2023 Chronic Other diseases of kidney and ureters (7 sources) Other specified disorders of kidney and ureter; Translations: [Unspecified disorder of kidney and ureter] Onset: 5 05-25-2023 Chronic Other gastrointestinal disorders (20 sources) Celiac disease; Translations: [Celiac disease] 11-10-2014 Chronic Other lower respiratory disease (7 sources) Hypoxia; Translations: [Hypoxemia] 05-25-2023 Episodic Other lower respiratory disease (4 sources) Hypoxemia; Translations: [Hypoxemia] 05-25-2023 Episodic Other lower respiratory disease (1 source) Cough; Translations: [Acute cough] 09-11-2022 Episodic Other upper respiratory disease (20 sources) Allergic rhinitis; Translations: [Allergic rhinitis, unspecified] Onset: 5 01-30-2018 Chronic Other upper respiratory infections (1 source) Bacterial sinusitis; Translations: [Chronic sinusitis, unspecified] 01-05-2024 Chronic Pneumonia (except that caused by tuberculosis or sexually transmitted disease) (17 sources) Bacterial pneumonia; Translations: [Unspecified bacterial pneumonia] Episodic Systemic lupus erythematosus and connective tissue disorders (20 sources) Sjogren's syndrome; Translations: [Sicca syndrome, unspecified] Onset: 6 Resolved: 6 05-02-2017 Chronic Past or Other Problems Problem Classification Problem Date Documented Da te Episodic/Chronic Administrative/social admission (10 sources) Advance directive discussed with patient; Translations: [Other specified counseling] Onset: 03-14-2024 03-14-2024 Episodic Allergic reactions (20 sources) Radiation-induced dermatosis; Translations: [Other skin changes due to chronic exposure to nonionizing radiation] Onset: 10-08-2008 Resolved: 12-02-2015 12-02-2015 Episodic Fluid and electrolyte disorders (16 sources) Metabolic acidosis; Translations: [Metabolic acidosis] Onset: 11-20-2023 11-20-2023 Episodic Gastritis and duodenitis (20 sources) Duodenitis; Translations: [Duodenitis without bleeding] Onset: 04-12-2010 Resolved: 06-16-2016 11-10-2014 Episodic Immunizations and screening for infectious disease (2 sources) Vaccination needed; Translations: [Encounter for immunization] Onset: 03-14-2024 03-14-2024 Episodic Miscellaneous mental health disorders (20 sources) Emotional problems; Translations: [Other symptoms and signs involving emotional state] Onset: 05-01-2006 Resolved: 09-11-2016 09-11-2016 Episodic Other aftercare (20 sources) Drug therapy finding; Translations: [Other correction (current) drug therapy] Onset: 07-30-2017 02-18-2018 Episodic Other aftercare (1 source) Other correction (current) drug therapy; Translations: [Medication management] Onset: 09-17-2023 Episodic Other and unspecified benign neoplasm (20 sources) Benign neoplasm of colon; Translations: [Benign neoplasm of colon, unspecified] Onset: 07-07-2005 Resolved: 07-27-2011 07-27-2011 Episodic Other and unspecified benign neoplasm (20 sources) Polyp of colon; Translations: [Polyp of colon] Onset: 01-27-2021 Resolved: 01-27-2021 01-27-2021 Episodic Other infections; including parasitic (20 sources) History of herpes zoster; Translations: [Personal history of other infectious and parasitic diseases] Onset: 10-15-2020 10-15-2020 Episodic Other inflammatory condition of skin (20 sources) Other specified erythematous conditions; Translations: [Other specified erythematous conditions] Onset: 09-11-2008 Resolved: 12-02-2015 12-02-2015 Episodic Other screening for suspected conditions (not mental disorders or infectious disease) (20 sources) Patient encounter status; Translations: [Encounter for screening mammogram for malignant neoplasm of breast] Onset: 07-30-2017 Episodic Other skin disorders (20 sources) Epidermoid cyst; Translations: [Epidermal cyst] Onset: 09-03-2017 09-03-2017 Episodic Other skin disorders (20 sources) Disorder of sebaceous gland; Translations: [Other specified follicular disorders] Onset: 09-11-2008 Resolved: 11-07-2009 11-07-2009 Episodic Other skin disorders (20 sources) Solar lentigo; Translations: [Other melanin hyperpigmentation] Onset: 11-07-2009 Resolved: 12-02-2015 12-02-2015 Episodic Other skin disorders (20 sources) Seborrheic keratosis; Translations: [Other seborrheic keratosis] Onset: 11-07-2009 Resolved: 12-02-2015 12-02-2015 Episodic Other skin disorders (20 sources) Asteatosis cutis; Translations: [Xerosis cutis] Onset: 11-07-2009 Resolved: 12-02-2015 12-02-2015 Episodic Other upper respiratory infections (3 sources) Acute pansinusitis; Translations: [Acute pansinusitis, unspecified] Onset: 03-14-2024 2023 Episodic Phlebitis; thrombophlebitis and thromboembolism (20 sources) H/O: Deep vein thrombosis; Translations: [Personal history of other venous thrombosis and embolism] Onset: 06-17-2009 Resolved: 06-16-2016 08-07-2018 Episodic Residual codes; unclassified (20 sources) Family history of cancer of colon; Translations: [Family history of malignant neoplasm of digestive organs] Onset: 01-07-2015 Resolved: 01-27-2021 01-27-2021 Episodic Screening and history of mental health and substance abuse codes (2 sources) Encounter for screening for depression; Translations: [Encounter for screening examination for other mental health and behavioral disorders] Onset: 03-14-2024 Episodic Varicose veins of lower extremity (20 sources) Venous varices; Translations: [Asymptomatic varicose veins of unspecified lower extremity] Onset: 10-20-2005 Resolved: 06-16-2016 06-16-2016 Episodic Viral infection (20 sources) Postherpetic neuralgia; Translations: [Other postherpetic nervous system involvement] Onset: 10-15-2020 10-15-2020 Episodic Results Test Name Value Interpretation Reference Range Facility /Darell 01-21-2025 MR/[facility] Medical Records Department [address] [place] [address] PAT - Anesthesia 01/21/252030 MR#: [id number] Acct: [id number] Name: RICHELLE CARDOZO BETO Rep #: [id number] : 1955 69 From: Duc Bailey MD PCP: Dr. Vinny Briones MD Status:PRE IN Y Race: C Location: [facility] Pre-Assessment Diagnosis/Proposed Procedure Planned Operative Procedure(s): LAP ROBOTIC PARTIAL NEPHRECTOMY LEFT Anesthesia History Anesthesia History - rn neonatal icu: Anesthesia History - rn neonatal icu Hx Hospitalization No 01/21/25 14:10 Any Problems With Anesthesia No 01/21/25 14:10 Cholinesterase deficiency No 01/21/25 14:10 You/Your Family Experience No 01/21/25 14:10 fever (hyperthermia) with Relationship Recent Exposure to Contagious No 08/01/23 06:29 Disease Does patient have nerve No 01/21/25 14:10 stimulator Patient instructed to have device shut off --Does patient have Pacemaker or ICD? When Was Last Pacemaker Check QUESTION #4 FULL TEXT: You/Your Family Experience fever (hyperthermia) with Anesthesia Last Oral Intake Last Oral intake: Last Oral Intake NPO since Meds taken in AM with sips of water? Meds patient instructed to take am of surgery PONV PONV - rn neonatal icu: PONV - rn neonatal icu Female Yes 01/21/25 14:10 HX of Motion Sickness No 01/21/25 14:10 HX of N/V After Surgery No 01/21/25 14:10 Non-Smoker Yes 01/21/25 14:10 Duration of Surgery greater Yes 01/21/25 14:10 than 60 minutes Number of Risk Factors 3 01/21/25 14:10 PONV Score Moderate Risk 01/21/25 14:10 Height Weight Height Weight: Anesthesia: Height Weight Height 5 ft 6 in 12/07/23 10:53 Respiratory Assessment Respiratory Assessment - rn neonatal icu: Respiratory Tract Infection Hx - rn neonatal icu Hx Respiratory Tract Infection No 01/21/25 14:10 STOP Sleep Apnea STOP Sleep Apnea - rn neonatal icu: STOP Sleep Apnea - rn neonatal icu Hx Hypertension Yes: CONTROLLED WITH MED 01/21/25 14:10 Hx Sleep Apnea No 01/21/25 14:10 CPAP No 08/01/23 09:45 BIPAP No 12/04/18 13:05 Do you snore loudly (louder No 01/21/25 14:10 than talking or can be heard Do you often feel tired/ No 01/21/25 14:10 fatigued/ sleepy during daytime? Has anyone observed you stop No 01/21/25 14:10 breathing during sleep? STOP Results Negative 01/21/25 14:10 QUESTION #5 FULL TEXT : Do you snore loudly (louder than talking or can be heard through closed doors)? 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 Specify any problems Hx of Preganancy in last 3 No 01/21/25 14:10 Months Nurse Filling Out Transfusion DSCHRIBER 01/21/25 14:10 Questions: Date: 01/21/25 01/21/25 14:10 Time: 14:12 01/21/25 14:10 Patient unable to answer at this time (ie. confused, unrespo /Reproduction History /Reproductive History - rn neonatal icu: /Reproductive Hx- rn neonatal icu Hx Now No 01/21/25 14:10 Gestational Age (in weeks): EDC: Hx Hx Para Hx Section SAB No 01/21/25 14:10 [facility] Medical History (Updated 01/21/25 @ 14:18 by Dori Merida) Post-menopausal Rheumatoid arthritis Hypertension Wears glasses Cancer History of renal disease Anemia DVT (deep venous thrombosis) Non-smoker History of echocardiogram Cardiology follow-up encounter History of irregular heartbeat Celiac disease Right renal mass Mixed hyperlipidemia GERD (gastroesophageal reflux disease) Osteoarthritis Sjogren's disease Home Medications ???Medication ???Instructions ???Recorded ???Last Taken ???Type calcium 600 mg (as 1 tab PO BIDCM SUPPLEMENT 03/14/13 07/31/23 History carbonate)-vitamin D3 20 mcg (800 unit) tablet fluticasone propionate 50 2 spray NASAL DAILY ALLERGIES 03/0407/31/23 History mcg/actuation nasal spray,suspension omeprazole 20 mg capsule,delayed 20 mg PO DAILY GERD 03/14/1308/01 History release montelukast 10 (more content not included)... Normal [facility] Basic Metabolic Profile (BMP )on 01-09-2025 BUN/CRE 12.4 RATIO Normal 03-23 [facility] Comment on above: Performed By: #### L 500.2500, L100.0500 #### [facility] [address] [place], [address] Calcium [Mass/Vol] 9.8 mg/dL Normal 7.6-11.0 [facility] Comment on above: Performed By: #### L 500.2500, L100.0500 #### [facility] [address] [place], [address] Chloride [Moles/Vol] 103 mmol/L Normal 98-108 [facility] Comment on above: Performed By: #### L 500.2500, L100.0500 #### [facility] [address] [place], [address] CO2 [Moles/Vol] 26.1 mmol/L Normal 21.0-32.0 [facility] Comment on above: Performed By: #### L 500.2500, L100.0500 #### [facility] [address] [place], [address] Creatinine [Mass/Vol] 1.31 mg/dL High 0.70-1.20 [facility] Comment on above: Performed By: #### L 500.2500, L100.0500 #### [facility] [address] [place], [address] GAP 8 Normal 5-15 [facility] Comment on above: Performed By: #### L 500.2500, L100.0500 #### [facility] [address] [place], [address] GFR/1.73 sq M.predicted among non-blacks MDRD (S/P/Bld) [Vol rate/Area] 44 mL/min/{1.73_m2} Low >60 [facility] Comment on above: Result Comment: mL/m in/1.73m2 CKD-EPI Creatinine Equation (2020) Performed By: #### L 500.2500, L100.0500 #### [facility] [address] [place], [address] Glucose [Mass/Vol] 96 mg/dL Normal 70-99 [facility] Comment on above: Performed By: #### L 500.2500, L100.0500 #### [facility] [address] [place], [address] Potassium [Moles/Vol] 4.4 mmol/L Normal 3.3-5.1 [facility] Comment on above: Performed By: #### L 500.2500, L100.0500 #### [facility] [address] [place], [address] Sodium [Moles/Vol] 137 mmol/L Normal 133-145 [facility] Comment on above: Performed By: #### L 500.2500, L100.0500 #### [facility] [address] [place], [address] Urea nitrogen [Mass/Vol] 16 mg/dL Normal 4-19 [facility] Comment on above: Performed By: #### L 500.2500, L100.0500 #### [facility] [address] [place], [address] CBC-Complete Blood Cnt No Di ffon 01-09-2025 Erythrocyte distribution width (RBC) [Ratio] 13.7 % Normal 11.6-14.6 [facility] Comment on above: Performed By: #### L 500.2500, L100.0500 #### [facility] [address] [place], [address] Hematocrit (Bld) [Volume fraction] 37.9 % Normal 37-47 [facility] Comment on above: Performed By: #### L 500.2500, L100.0500 #### [facility] [address] [place], [address] Hemoglobin (Bld) [Mass/Vol] 12.4 g/dL Normal 12.0-15.0 [facility] Comment on above: Performed By: #### L 500.2500, L100.0500 #### [facility] [address] [place], [address] MCH (RBC) [Entitic mass] 29.9 pg Normal 27.0-32.0 [facility] Comment on above: Performed By: #### L 500.2500, L100.0500 #### [facility] [address] [place], [address] MCHC (RBC) [Mass/Vol] 32.7 g/dL Normal 32-36 [facility] Comment on above: Performed By: #### L 500.2500, L100.0500 #### [facility] [address] [place], [address] MCV (RBC) [Entitic vol] 91.3 fL Normal 81-99 [facility] Comment on above: Performed By: #### L 500.2500, L100.0500 #### [facility] [address] [place], [address] Platelet mean volume (Bld) [Entitic vol] 10.0 fL Normal 6.2-12.0 [facility] Comment on above: Performed By: #### L 500.2500, L100.0500 #### [facility] [address] [place], [address] Platelets (Bld) [#/Vol] 258 10*3/uL Normal 150-450 [facility] Comment on above: Performed By: #### L 500.2500, L100.0500 #### [facility] [address] [place], [address] RBC (Bld) [#/Vol] 4.15 10*6/uL Low 4.2-5.4 [facility] Comment on above: Performed By: #### L 500.2500, L100.0500 #### [facility] [address] [place], [address] RDW SD 46.5 fl High 35.1-43.9 [facility] Comment on above: Performed By: #### L 500.2500, L100.0500 #### [facility] [address] [place], [address] WBC (Bld) [#/Vol] 5.9 10*3/uL Normal 4.4-11.0 [facility] Comment on above: Performed By: #### L 500.2500, L100.0500 #### [facility] [address] [place], [address] Cardiology Visit Reporton Cardiology Visit Report [facility] [address] [place] [address] [place] [address] OFFICE VISIT Date of Service: 01/09/25 MR#: [id number] Acct: [id number] Name: RICHELLE CARDOZO Rep #: [id number] : 1955 Provider: KORTNEY girard Age/Sex: 69/F Location: [facility] Status: Signed HPI HPI History of Present Illness Details: Patient is a 69-year-old white female who presents to the office today for cardiovascular follow-up visit. 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 She had been admitted for post viral pneumococcal pneumonia. An echocardiogram showed some LV dysfunction at that time. She was started on guideline directed medical therapy. We repeated her echocardiogram October 26, 2023 her EF improved to 55% there was no evidence of diastolic dysfunction she had 1+ mitral regurgitation and trivial aortic insufficiency with a mildly dilated aortic root. Incidentally the patient was found to have a 2.2 cm solid mass in the right renal upper lobe. This was resected by Dr. 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 She states she now has a tumor on her left kidney, and will be undergoing surgery on 02/04/2025. From a cardiac standpoint, the patient is doing well. She denies any palpitations, chest pain, pressure or heaviness. She denies SOB, Orthopnea, and PND. She does not have bleeding issues; no blood in urine, stool, or nosebleeds. She denies any decrease in energy level, myalgias, or claudication. She does not have edema, or sudden weight gain. She denies lightheadedness, dizziness, syncopal or near syncopal episodes, and headaches. Intake Vital Signs 12/07/23 10:53 01/09/25 08:50 Height 5 ft 6 in 5 ft 6 in Weight: 146 lb BMI 23.6 BP 115/71 Blood Pressure Location Lt brachial Position Sitting Respiration 18 Pulse 65 Pulse Source Monitor Pulse Oximetry (%) 99 Intake Visit Reasons: 1 Y FU Pharmacy Technologist Required: No Is patient in pain?: No Allergies gluten Allergy (Verified 01/09/25 11:37) Food Allergy amoxicillin Adverse Reaction (Verified 01/09/25 11:37) Nausea doxycycline Adverse Reaction (Verified 01/09/25 11:37) Other erythromycin base (Erythromycin Base) Adverse Reaction (Verified 01/09/25 11:37) Nausea hydrocodone bitartrate (From Vicodin) Adverse Reaction (Verified 01/09/25 11:37) Vomiting Sulfa (Sulfonamide Antibiotics) Adverse Reaction (Verified 01/09/25 11:37) Nausea Medications ???Medication ???Instructions ???Recorded ???Confirmed ???Type calcium 600 mg (as 1 tab PO BIDCM 03/14/13 01/09/25 H istory carbonate)-vitamin D3 20 mcg (800 unit) tablet fluticasone propionate 50 2 spray NASAL DAILY 03/14/1301/09 History mcg/actuation nasal spray,suspension omeprazole 20 mg capsule,delayed 20 mg PO DAILY 03/14/13 01/09/25 H istory release montelukast 10 mg tablet 10 mg PO DAILY ALLERGIES 09/23/14 01/09/25 History cholecalciferol (vitamin D3) 50 2,000 unit PO DAILY 09/20/1701/09 History mcg (2,000 unit) capsule hydroxychloroquine 200 mg tablet 200 mg PO DAILY 05/24/23 01/09/25 History alendronate sodium 35 mg PO SA 06/14/23 01/09/25 Hist ory lactobacillus combination no.9 4 4,000 mmu cells PO DAILY 06/14/23 01/09/25 History billion cell capsule (Adult 50 Plus Probiotic) iron, carbonyl 18 mg iron chewable 18 mg PO DAILY 12/07/23 01/09/25 History tablet mecobalamin (vitamin B12) 1,000 1,000 mcg PO DAILY 12/07/23 History mcg chewable tablet metoprolol tartrate 25 mg tablet 25 mg PO BID #180 tabs 01/09/25 Rx Ejection fraction %: 55 Have you fallen in the past year?: No PFSH Medical History (Reviewed 01/09/25 @ 12:52 by Jessica Schaefer ECO INDUSTRIAL DEVELOPMENT CONSULTANT, [employer]CO INDUSTRIAL DEVELOPMENT CONSULTANT-C) Wears glasses Cancer History of renal disease Anemia DVT (deep venous thrombosis) Non-smoker History of echocardiogram Cardiology follow-up encounter History of irregular heartbeat Abnormal echocardiogram Essential hypertension Chronic kidney disease, stage 3 Celiac disease Bone lesion Right renal mass Mixed hyperlipidemia Hemorrhoid GERD (gastroesophageal reflux disease) Osteoarthritis Sjogren's disease Surgical History (Reviewed 01/09/25 @ 12:52 by Jessica Schaefer ECO INDUSTRIAL DEVELOPMENT CONSULTANT, ECO INDUSTRIAL DEVELOPMENT CONSULTANT-C) History of surgery Hx of repair of ear bone S/P ectopic S/P tubal ligation S/P colonoscopy S/P cholecystectomy Family History (Reviewed 01/09/25 @ 12:52 by Jessica Schaefer ECO INDUSTRIAL DEVELOPMENT CONSULTANT, ECO INDUSTRIAL DEVELOPMENT CONSULTANT-C) Mother Breast cancer Colon cancer Cancer skin CVA (cerebral vascular accident) Heart disease aortic valve replacement Father CHF (congestive heart failure) Sister Colon cancer Hypertension Brother Prostate cancer Social History (Reviewed 01/09/25 @ 12:52 by Jessica Schaefer ECO INDUSTRIAL DEVELOPMENT CONSULTANT, (more content not included)... Normal [facility] CREATININE FINGERSTICKon Creatinine [Mass/Vol] 1.5 mg/dL High 0.55-1.02 [facility] Comment on above: Performed By: #### L 9100.0200 #### [facility] [address] [facility] [place], [address] GFR/1.73 sq M.predicted among non-blacks MDRD (S/P/Bld) [Vol rate/Area] 37.0000 mL/min/{1.73_m2} Low >60 [facility] Comment on above: Performed By: #### L 9100.0200 #### [facility] [address] [place], [address] CT [facility]elvis W/WO [facility]rast [facility] Services [address] [place] [address] CT Abd/Pelvis W/WO Contrast MR#: [id number] Acct: [id number] Name: RICHELLE CARDOZO BETO Rep #: [id number] : 1955 F 69 From: Sree Fleming MD PCP: Dr. Vinny Briones MD Status: REG CLI Study: CT Abd/Pelvis W/WO Contrast Date of Exam: 12/03 09/26 Exam# [id number] Ordering Dr: Garret Longoria MD PROCEDURE: CT ABD/PELVIS W/WO CONTRAST 12/25/2024 REASON FOR EXAM: MALIGNANT NEOPLASM OF RIGHT KIDNEY, EXCEPT RENAL PELVIS TECHNIQUE: CT ABD/PELVIS W/WO CONTRAST Coronal and Sagittal reconstruction series were provided. CONTRAST: Isovue 370 VOLUME: 70 mL One or more dose reduction techniques were used (e.g., Automated exposure control, adjustment of the mA and/or kV according to patient size, use of iterative reconstruction technique. RADIATION DOSE SUMMARY: CTDlvol: 50 mGy DLP: 2266 mGycm COMPARISON: 01/11/2024 FINDINGS: Under aerated lung bases. Interval improvement at the right base with resolution of rounded atelectasis. Multiple noncalcified lung nodules, measuring up to 6 mm, nonspecific. Elective chest CT is recommended. Upper limits of normal heart size. Dilated ascending aorta, 4.1 cm maximum cross-section on partial visualization. Small liver cyst. Status post cholecystectomy. Unremarkable pancreas, spleen, adrenal glands. On the left, there is a stable 1.6 cm staghorn calculus. There is a 1.9 by 1.9 x 1.8 cm exophytic low-density mass, series 3, image 33, previously measured 1.5 x 1.5 x 1.6 cm. Small interval enlargement. On the right, there is a history of a renal mass which is no longer seen. There are multiple simple cysts redemonstrated. Multiple small right renal calcifications. No hydronephrosis or ureteral stone. Unremarkable bladder. Normal uterus and ovaries. No retroperitoneal or pelvic adenopathy. No free air. Small hiatal hernia. Nonobstructed bowel. Normal appendix. Diverticulosis. No acute large bowel findings. Lumbar spine degeneration. Old left-sided rib fracture. No acute abdominal wall findings. CT/CT Abd/Pelvis W/WO Contrast IMPRESSION: Enlarging low-density mass, off the anterior left kidney, suspicious for primary renal cell carcinoma, slow growing. Continued follow up imaging as clinically determined. Reading Location: [place] [address] CC: Dr. Vinny Briones MD; Dr. Garret Longoria MD Slumber Room Attendant: Signed Normal [facility] Creatinine measurement at dsideOrdered By: Garret Longoria on 12-25-2024 Creatinine [Mass/Vol] 1.5 mg/dL High 0.55-1.02 [facility] EGFROrdered By: Garret Longoria on 12-25-2024 GFR/1.73 sq M.predicted among non-blacks MDRD (S/P/Bld) [Vol rate/Area] 37.0000 mL/min/{1.73_m2} Low >60 [facility] Anion gap in Serum or Plasma Ordered By: Ly Raygoza on 11-10-2024 Anion gap [Moles/Vol] 10 mmol/L 5- [facility] BUN/creatinine ratioOrdered By: Ly Raygoza on 11-10-2024 Urea nitrogen/Creatinine [Mass ratio] 14.8 mg/mg 10- [facility] CBC-Complete Blood Cnt No Di ffon 11-10-2024 Erythrocyte distribution width (RBC) [Ratio] 13.3 % Normal 11.6-14.6 [facility] Comment on above: Performed By: #### L 500.3600, L100.0500 #### [facility] [address] [place], [address] Hematocrit (Bld) [Volume fraction] 38.1 % Normal 37-47 [facility] Comment on above: Performed By: #### L 500.3600, L100.0500 #### [facility] [address] [place], [address] Hemoglobin (Bld) [Mass/Vol] 12.3 g/dL Normal 12.0-15.0 [facility] Comment on above: Performed By: #### L 500.3600, L100.0500 #### [facility] [address] [place], [address] MCH (RBC) [Entitic mass] 29.5 pg Normal 27.0-32.0 [facility] Comment on above: Performed By: #### L 500.3600, L100.0500 #### [facility] [address] [place], [address] MCHC (RBC) [Mass/Vol] 32.3 g/dL Normal 32-36 [facility] Comment on above: Performed By: #### L 500.3600, L100.0500 #### [facility] [address] [place], [address] MCV (RBC) [Entitic vol] 91.4 fL Normal 81-99 [facility] Comment on above: Performed By: #### L 500.3600, L100.0500 #### [facility] [address] [place], [address] Platelet mean volume (Bld) [Entitic vol] 10.2 fL Normal 6.2-12.0 [facility] Comment on above: Performed By: #### L 500.3600, L100.0500 #### [facility] [address] [place], [address] Platelets (Bld) [#/Vol] 267 10*3/uL Normal 150-450 [facility] Comment on above: Performed By: #### L 500.3600, L100.0500 #### [facility] [address] [place], [address] RBC (Bld) [#/Vol] 4.17 10*6/uL Low 4.2-5.4 [facility] Comment on above: Performed By: #### L 500.3600, L100.0500 #### [facility] [address] [place], [address] RDW SD 44.5 fl High 35.1-43.9 [facility] Comment on above: Performed By: #### L 500.3600, L100.0500 #### [facility] [address] [place], [address] WBC (Bld) [#/Vol] 6.7 10*3/uL Normal 4.4-11.0 [facility] Comment on above: Performed By: #### L 500.3600, L100.0500 #### [facility] [address] [place], [address] Carbon dioxide, total [Moles /volume] in Central venous bloodOrdered By: Ly Raygoza on 11-10-2024 CO2 [Moles/Vol] 23.5 mmol/L 21.0-32.0 [facility] Chloride assayOrdered By: Samuel Raygoza on 11-10-2024 Chloride [Moles/Vol] 106 mmol/L 98-108 [facility] Erythrocyte distribution wid th ratioOrdered By: Ly Raygoza on 11-10-2024 Erythrocyte distribution width (RBC) [Ratio] 13.3 % 11.6-14.6 [facility] Erythrocyte distribution wid th standard deviationOrdered By: Ly Raygoza on 11-10-2024 Erythrocyte distribution width (RBC) [Ratio] 44.5 fl High 35.1-43.9 [facility] Glomerular filtration rate ( GFR) estimation/1.73 sq m using serum, plasma, or whole bOrdered By: Ly Raygoza on 11-10-2024 GFR/1.73 sq M.predicted among non-blacks MDRD (S/P/Bld) [Vol rate/Area] 44 mL/min/{1.73_m2} Low >60 [facility] Comment on above: mL/min/1.73m2 CKD-EP I Creatinine Equation (2020) Hematocrit Auto (Bld) [Volum e fraction]Ordered By: Ly Raygoza on 11-10-2024 Hematocrit (Bld) [Volume fraction] 38.1 % 37-47 [facility] Hemoglobin measurementOrdere d By: Ly Raygoza on 11-10-2024 Hemoglobin (Bld) [Mass/Vol] 12.3 g/dL 12.0-15.0 [facility] MCV (mean corpuscular volume ) determinationOrdered By: Ly Raygoza on 11-10-2024 MCV (RBC) [Entitic vol] 91.4 fL 81-99 [facility] Mean corpuscular hemoglobin (MCH) determinationOrdered By: Ly Raygoza on 11-10-2024 MCH (RBC) [Entitic mass] 29.5 pg 27.0-32.0 [facility] Mean corpuscular hemoglobin concentration (MCHC) determinationOrdered By: Ly Raygoza on 11-10-2024 MCHC (RBC) [Mass/Vol] 32.3 g/dL 32-36 [facility] Mean platelet volume determi nationOrdered By: Ly Raygoza on 11-10-2024 Platelet mean volume (Bld) [Entitic vol] 10.2 fL 6.2-12.0 [facility] Platelet countOrdered By: Samuel Raygoza on 11-10-2024 Platelets (Bld) [#/Vol] 267 10*3/uL 150-450 [facility] Potassium measurement (mass/ volume)Ordered By: Ly Raygoza on 11-10-2024 Potassium (Unsp spec) [Mass/Vol] 4.3 mmol/L 3.3-5.1 [facility] RBC Auto (Bld) [#/Vol]Ordere d By: Ly Raygoza on 11-10-2024 RBC (Bld) [#/Vol] 4.17 10*6/uL Low 4.2-5.4 [facility] Renal Profileon 11-10-2024 Albumin [Mass/Vol] 4.0 g/dL Normal 3.4-4.8 [facility] Comment on above: Performed By: #### L 500.3600, L100.0500 #### [facility] [address] [place], [address] BUN/CRE 14.8 RATIO Normal 10-20 [facility] Comment on above: Performed By: #### L 500.3600, L100.0500 #### [facility] [address] [place], [address] Calcium [Mass/Vol] 9.3 mg/dL Normal 7.6-11.0 [facility] Comment on above: Performed By: #### L 500.3600, L100.0500 #### [facility] [address] [place], [address] Chloride [Moles/Vol] 106 mmol/L Normal 98-108 [facility] Comment on above: Performed By: #### L 500.3600, L100.0500 #### [facility] [address] [place], [address] CO2 [Moles/Vol] 23.5 mmol/L Normal 21.0-32.0 [facility] Comment on above: Performed By: #### L 500.3600, L100.0500 #### [facility] [address] [place], [address] Creatinine [Mass/Vol] 1.30 mg/dL High 0.70-1.20 [facility] Comment on above: Performed By: #### L 500.3600, L100.0500 #### [facility] [address] [place], [address] GAP 10 Normal 5-15 [facility] Comment on above: Performed By: #### L 500.3600, L100.0500 #### [facility] [address] [place], [address] GFR/1.73 sq M.predicted among non-blacks MDRD (S/P/Bld) [Vol rate/Area] 44 mL/min/{1.73_m2} Low >60 [facility] Comment on above: Result Comment: mL/m in/1.73m2 CKD-EPI Creatinine Equation (2020) Performed By: #### L 500.3600, L100.0500 #### [facility] [address] [place], [address] Glucose [Mass/Vol] 92 mg/dL Normal 70-99 [facility] Comment on above: Performed By: #### L 500.3600, L100.0500 #### [facility] [address] [place], [address] Phosphate [Mass/Vol] 4.2 mg/dL Normal 2.7-4.5 [facility] Comment on above: Performed By: #### L 500.3600, L100.0500 #### [facility] [address] [place], [address] Potassium [Moles/Vol] 4.3 mmol/L Normal 3.3-5.1 [facility] Comment on above: Performed By: #### L 500.3600, L100.0500 #### [facility] [address] [place], [address] Sodium [Moles/Vol] 139 mmol/L Normal 133-145 [facility] Comment on above: Performed By: #### L 500.3600, L100.0500 #### [facility] [address] [place], [address] Urea nitrogen [Mass/Vol] 19 mg/dL Normal 4- [facility] Comment on above: Performed By: #### L 500.3600, L100.0500 #### [facility] [address] [place], [address] Serum creatinine measurement (mass/volume)Ordered By: Ly Raygoza on 11-10-2024 Creatinine [Mass/Vol] 1.30 mg/dL High 0.70-1.20 [facility] Serum glucose measurement (m ass/volume)Ordered By: Ly Raygoza on 11-10-2024 Glucose [Mass/Vol] 92 mg/dL 70-99 [facility] Serum or plasma albumin mikael urement (mass/volume)Ordered By: Ly Raygoza on 11-10-2024 Albumin [Mass/Vol] 4.0 g/dL 3.4-4.8 [facility] Serum or plasma calcium mikael urement (mass/volume)Ordered By: Ly Raygoza on 11-10-2024 Calcium [Mass/Vol] 9.3 mg/dL 7.6-11.0 [facility] Serum or plasma urea nitroge n measurement (mass/volume)Ordered By: Ly Raygoza on 11-10-2024 Urea nitrogen [Mass/Vol] 19 mg/dL - [facility] Sodium levelOrdered By: Keith Raygoza on 11-10-2024 Sodium [Moles/Vol] 139 mmol/L 133-145 [facility] White blood cell (WBC) count Ordered By: Ly Raygoza on 06-09-2025 WBC (Bld) [#/Vol] 6.7 10*3/uL 4.4-11.0 [facility] CNOVon 03-21-2024 CNOV Office Visit (OBGYWM ) RICHELLE CARDOZO ([id number]) 1955 F Date Time Provider Department 03/21/24 9:00 AM MINDI THOMAS OBGYWM During your visit today, we recorded the following information about you: Blood pressure Weight Height 122/70 64 kg 1.646 m Mindi Thomas APRN.JAVA LEAD ARCHITECT 03/21/2024 9:18 AM Signed Patient declined agents' records clerkChely Shin is a 69 year old who presents for an annual gynecologic exam without complaints. Postmenopausal: Yes HRT use: No. 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 Normal [facility] SCREENINGon 03-21-2024 [facility] SCREENING * * *Final Report* * * DATE OF EXAM: Mar 21 2024 8:42AM [facility] 0581 - [facility] SCREENING / PROCEDURE REASON: Encounter for screening mammogram for malignant neoplasm of breast * * * * Physician Interpretation * * * * RESULT: [place] [address] [place] [address] HISTORY: Patient is 69 years old and [...] Mely Youngblood M.D. Electronically signed on: 03/24/2024 Slumber Room Attendant: EUGENIA Transcribe Date/Time: Mar 21 2024 8:27A Dictated by: MELY YOUNGBLOOD MD This examination was interpreted and the report reviewed and electronically signed by: MELY YOUNGBLOOD MD on Mar 24 2024 1:16PM EST [id number] Normal [facility]HEL[facility] ([id number]) 1955 F Date Time Provider Department 03/15/24 [facility] During [facility] visit today, we recorded [...] [Z86.0100] 03/15/2009 06/16/2016 DVT (deep venous thrombosis) ([facility]) [...] Status:Closed by RADHA HANKS on 03/15/24 Normal [facility] CBC W Auto Differential pane l (Bld)on 03-14-2024 Basophils (Bld) [#/Vol] 0.09 10*3/uL Normal <0.11 [facility] Comment on above: Order Comment: Speci men Type: BLOOD SPECIMENOrdering Facility: [facility] Address: [address] [place] [address] Performed By: #### 5 7021-8 ####[facility] LABCLIA [id number] [place] [address] [place] Basophils/100 WBC (Bld) 1.1 % Normal C [facility] Comment on above: Order Comment: Speci men Type: BLOOD SPECIMENOrdering Facility: [facility] Address: [address] [place] [address] Performed By: #### 5 7021-8 ####[facility] LABCLIA [id number] [place] [address] [place] Differential cell count method Nom (Bld) Auto Normal [facility] Comment on above: Order Comment: Speci men Type: BLOOD SPECIMENOrdering Facility: [facility] Address: [address] [place] [address] Performed By: #### 5 7021-8 ####[facility] LABCLIA [id number] [place] [address] [place] Eosinophils (Bld) [#/Vol] 0.11 10*3/uL Normal <0.46 [facility] Comment on above: Order Comment: Speci men Type: BLOOD SPECIMENOrdering Facility: [facility] Address: [address] [place] [address] Performed By: #### 5 7021-8 ####[facility] LABCLIA [id number] [place] [address] [place] Eosinophils/100 WBC (Bld) 1.3 % Normal [facility] Comment on above: Order Comment: Speci men Type: BLOOD SPECIMENOrdering Facility: [facility] Address: [address] [place] [address] Performed By: #### 5 7021-8 ####[facility] LABIA [id number] [place] [address] [place] Erythrocyte distribution width (RBC) [Ratio] 13.9 % Normal 11.5-15.0 [facility] Comment on above: Order Comment: Speci men Type: BLOOD SPECIMENOrdering Facility: [facility] Address: [address] [place] [address] Performed By: #### 5 7021-8 ####[facility] LABIA [id number] [place] [address] [place] Hematocrit (Bld) [Volume fraction] 36.1 % Normal 36.0-46.0 [facility] Comment on above: Order Comment: Speci men Type: BLOOD SPECIMENOrdering Facility: [facility] Address: [address] [place] [address] Performed By: #### 5 7021-8 ####[facility] LABCLIA [id number] [place] [address] [place] Hemoglobin (Bld) [Mass/Vol] 11.2 g/dL Low 11.5-15.5 [facility] Comment on above: Order Comment: Speci men Type: BLOOD SPECIMENOrdering Facility: [facility] Address: [address] [place] [address] Performed By: #### 5 7021-8 ####[facility] LABCLIA [id number] [place] [address] [place] Immature granulocytes (Bld) [#/Vol] 0.05 10*3/uL Normal <0.10 [facility] Comment on above: Order Comment: Speci men Type: BLOOD SPECIMENOrdering Facility: [facility] Address: [address] [place] [address] Performed By: #### 5 7021-8 ####[facility] LABIA [id number] [place] [address] [place] Immature granulocytes/100 WBC (Bld) 0.6 % Normal [facility] Comment on above: Order Comment: Speci men Type: BLOOD SPECIMENOrdering Facility: [facility] Address: [address] [place] [address] Performed By: #### 5 7021-8 ####[facility] LABCLIA [id number] [place] [address] [place] Lymphocytes (Bld) [#/Vol] 1.98 10*3/uL Normal 1.00-4.00 [facility] Comment on above: Order Comment: Speci men Type: BLOOD SPECIMENOrdering Facility: [facility] Address: [address] [place] [address] Performed By: #### 5 7021-8 ####[facility] LABCLIA [id number] [place] [address] [place] Lymphocytes/100 WBC (Bld) 23.4 % Normal [facility] Comment on above: Order Comment: Speci men Type: BLOOD SPECIMENOrdering Facility: [facility] Address: [address] [place] [address] Performed By: #### 5 7021-8 ####[facility] LABCLIA [id number] [place] [address] [place] MCH (RBC) [Entitic mass] 29.2 pg Normal 26.0-34.0 [facility] Comment on above: Order Comment: Speci men Type: BLOOD SPECIMENOrdering Facility: [facility] Address: [address] [place] [address] Performed By: #### 5 7021-8 ####[facility] LABIA [id number] [place] [address] [place] MCHC (RBC) [Mass/Vol] 31.0 g/dL Normal 30.5-36.0 [facility] Comment on above: Order Comment: Speci men Type: BLOOD SPECIMENOrdering Facility: [facility] Address: [address] [place] [address] Performed By: #### 5 7021-8 ####[facility] LABIA [id number] [place] [address] [place] MCV (RBC) [Entitic vol] 94.0 fL Normal 80.0-100.[address] [facility] Comment on above: Order Comment: Speci men Type: BLOOD SPECIMENOrdering Facility: [facility] Address: [address] [place] [address] Performed By: #### 5 7021-8 ####[facility] LABCLIA [id number] [place] [address] [place] Monocytes (Bld) [#/Vol] 1.08 10*3/uL High <0.87 [facility] Comment on above: Order Comment: Speci men Type: BLOOD SPECIMENOrdering Facility: [facility] Address: [address] [place] [address] Performed By: #### 5 7021-8 ####[facility] LABCLIA [id number] [place] [address] [place] Monocytes/100 WBC (Bld) 12.8 % Normal [facility] Comment on above: Order Comment: Speci men Type: BLOOD SPECIMENOrdering Facility: [facility] Address: [address] [place] [address] Performed By: #### 5 7021-8 ####[facility] LABCLIA [id number] [place] [address] [place] Neutrophils (Bld) [#/Vol] 5.15 10*3/uL Normal 1.45-7.50 [facility] Comment on above: Order Comment: Speci men Type: BLOOD SPECIMENOrdering Facility: [facility] Address: [address] [place] [address] Performed By: #### 5 7021-8 ####[facility] LABCLIA [id number] [address] [place] Neutrophils/100 WBC (Bld) 60.8 % Normal [facility] Comment on above: Order Comment: Speci men Type: BLOOD SPECIMENOrdering Facility: [facility] Address: [address] [place] [address] Performed By: #### 5 7021-8 ####[facility] LABCLIA [id number] [place] [address] [place] Nucleated RBC (Bld) [#/Vol] 10*3/uL Normal <0.01 [facility] Comment on above: Order Comment: Speci men Type: BLOOD SPECIMENOrdering Facility: [facility] Address: [address] [place] [address] Performed By: #### 5 7021-8 ####[facility] LABCLIA [id number] [place] [address] [place] Nucleated RBC/100 WBC (Bld) [Ratio] 0.0 /100 WBC Normal [facility] Comment on above: Order Comment: Speci men Type: BLOOD SPECIMENOrdering Facility: [facility] Address: [address] [place] [address] Performed By: #### 5 7021-8 ####[facility] LABIA [id number] [place] [address] [place] Platelet mean volume (Bld) [Entitic vol] 10.3 fL Normal 9.0-12.7 [facility] Comment on above: Order Comment: Speci men Type: BLOOD SPECIMENOrdering Facility: [facility] Address: [address] [place] [address] Performed By: #### 5 7021-8 ####[facility] LABCLIA [id number] [place] [address] [place] Platelets (Bld) [#/Vol] 312 10*3/uL Normal 150-400 [facility] Comment on above: Order Comment: Speci men Type: BLOOD SPECIMENOrdering Facility: [facility] Address: [address] [place] [address] Performed By: #### 5 7021-8 ####[facility] LABIA [id number] [place] [address] [place] RBC (Bld) [#/Vol] 3.84 10*6/uL Low 3.90-5.20 [facility] Comment on above: Order Comment: Speci men Type: BLOOD SPECIMENOrdering Facility: [facility] Address: [address] [place] [address] Performed By: #### 5 7021-8 ####[facility] LABCLIA [id number] [place] [address] [place] WBC (Bld) [#/Vol] 8.46 10*3/uL Normal 3.70-11.00 [facility] Comment on above: Order Comment: Speci men Type: BLOOD SPECIMENOrdering Facility: [facility] Address: [address] [place] [address] Performed By: #### 5 7021-8 ####[facility] LABCLIA [id number] [address] [place] [id number] [address] [place] [facility] CNOVon 03-14-2024 CNOV Office Visit (FAMPWS ) RICHELLE CARDOZO ([id number]) 1955 F Date Time Provider Department 03/14/24 1:40 PM [facility] today, we recorded the [...] review all the medicines you take, even ecjh-ivg-stojznh medicines. As you get older, the way [...] Briones MD 03/14/2024 2:00 PM Signed Richelle Arnetts is a 69 year old female here [...] 105/70 Pulse 76 Ht 165.7 cm (5' 5.25") Wt 64.6 (more content not included)... Normal [facility] Comprehensive metabolic 2000 panelon 03-14-2024 Albumin [Mass/Vol] 3.8 g/dL Low 3.9-4.9 [facility] Comment on above: Order Comment: Speci men Type: BLOOD SPECIMENOrdering Facility: [facility] Address: [address] [place] [address] Performed By: #### 2 4323-8, LIPNF ####[facility] LABCLIA [id number] [place] [address] [place] ALP [Catalytic activity/Vol] 72 U/L Normal 34-123 [facility] Comment on above: Order Comment: Speci men Type: BLOOD SPECIMENOrdering Facility: [facility] Address: [address] [place] [address] Performed By: #### 2 4323-8, LIPNF ####[facility] LABCLIA [id number] [place] [address] [place] ALT [Catalytic activity/Vol] 10 U/L Normal 7-38 [facility] Comment on above: Order Comment: Speci men Type: BLOOD SPECIMENOrdering Facility: [facility] Address: [address] [place] [address] Performed By: #### 2 4323-8, LIPNF ####[facility] LABCLIA [id number] [place] [address] [place] Anion gap [Moles/Vol] 10 mmol/L Normal 8-15 [facility] Comment on above: Order Comment: Speci men Type: BLOOD SPECIMENOrdering Facility: [facility] Address: [address] [place] [address] Performed By: #### 2 4323-8, LIPNF ####[facility] LABCLIA [id number] [place] [address] [place] AST [Catalytic activity/Vol] 19 U/L Normal 13-35 [facility] Comment on above: Order Comment: Speci men Type: BLOOD SPECIMENOrdering Facility: [facility] Address: [address] [place] [address] Performed By: #### 2 4323-8, LIPNF ####[facility] LABCLIA [id number] [place] [address] [place] Bilirubin [Mass/Vol] 0.2 mg/dL Normal 0.2-1.3 [facility] Comment on above: Order Comment: Speci men Type: BLOOD SPECIMENOrdering Facility: [facility] Address: [address] [place] [address] Performed By: #### 2 4323-8, LIPNF ####[facility] LABCLIA [id number] [place] [address] [place] Calcium [Mass/Vol] 9.4 mg/dL Normal 8.5-10.2 [facility] Comment on above: Order Comment: Speci men Type: BLOOD SPECIMENOrdering Facility: [facility] Address: [address] [place] [address] Performed By: #### 2 4323-8, LIPNF ####[facility] LABCLIA [id number] [address] [address] [place] Chloride [Moles/Vol] 104 mmol/L Normal 98-107 [facility] Comment on above: Order Comment: Speci men Type: BLOOD SPECIMENOrdering Facility: [facility] Address: [address] [place] [address] Performed By: #### 2 4323-8, LIPNF ####[facility] LABCLIA [id number] [place] [address] [place] CO2 [Moles/Vol] 23 mmol/L Normal 22-30 [facility] Comment on above: Order Comment: Speci men Type: BLOOD SPECIMENOrdering Facility: [facility] Address: [address] [place] [address] Performed By: #### 2 4323-8, LIPNF ####[facility] LABCLIA [id number] [place] [address] [place] Creatinine [Mass/Vol] 1.32 mg/dL High 0.58-0.96 [facility] Comment on above: Order Comment: Speci men Type: BLOOD SPECIMENOrdering Facility: [facility] Address: [address] [place] [address] Performed By: #### 2 4323-8, LIPNF ####[facility] LABCLIA [id number] [place] [address] [place] Creatinine and Glomerular filtration rate.predicted panel (S/P/Bld) 44 mL/min/1.73m??? Low >=60 [facility] Comment on above: Order Comment: Speci men Type: BLOOD SPECIMENOrdering Facility: [facility] Address: [address] [place], [place] [address] Result Comment: Digna mated Glomerular Filtration Rate [...] accurately reflect actual GFR. Performed By: #### 2 4323-8, LIPNF ####[facility] LABCLIA [id number] [place] [address] [place] Glucose [Mass/Vol] 94 mg/dL Normal 74-99 [facility] Comment on above: Order Comment: Specjosé green Type: BLOOD SPECIMENOrdering Facility: [facility] Address: [address] [place] [address] Result Comment: The [place] Diabetes Association (ADA) provides guidance for cutoff [...] Standards of Medical Care in Diabetes 2016, [place] [employer]. Diabetes Care. 2016.39(Suppl 1). Performed By: #### 2 4323-8, LIPNF ####[facility] LABIA [id number] [place] [address] [place] Potassium [Moles/Vol] 4.2 mmol/L Normal 3.7-5.1 [facility] Comment on above: Order Comment: Abigial green Type: BLOOD SPECIMENOrdering Facility: [facility] Address: [address] [place] [address] Performed By: #### 2 4323-8, LIPNF ####[facility] LABCLIA [id number] [place] [address] [place] Protein [Mass/Vol] 8.1 g/dL High 6.3-8.0 [facility] Comment on above: Order Comment: Speci men Type: BLOOD SPECIMENOrdering Facility: [facility] Address: [address] [place] [address] Performed By: #### 2 4323-8, LIPNF ####[facility] LABCLIA [id number] [place] [address] [place] Sodium [Moles/Vol] 137 mmol/L Normal 136-144 [facility] Comment on above: Order Comment: Speci men Type: BLOOD SPECIMENOrdering Facility: [facility] Address: [address] [place] [address] Performed By: #### 2 4323-8, LIPNF ####[facility] LABCLIA [id number] [place] [address] [place] Urea nitrogen [Mass/Vol] 21 mg/dL Normal 7-21 [facility] Comment on above: Order Comment: Speci men Type: BLOOD SPECIMENOrdering Facility: [facility] Address: [address] [place] [address] Performed By: #### 2 4323-8, LIPNF ####[facility] LABCLIA [id number] [place] [address] [place] LIPID PANEL, NONFASTINGon Cholesterol [Mass/Vol] 150 mg/dL Normal <200 [facility] Comment on above: Order Comment: Speci men Type: BLOOD SPECIMENOrdering Facility: [facility] Address: [address] [place] [address] Result Comment: <200 mg/dL, Desirable 200-239 mg/dL, Borderline high >239 mg/dL, High Performed By: #### 2 4323-8, LIPNF ####[facility] LABCLIA [id number] [place] [address] [place] [facility] HDL CHOLESTEROL, NF 52 mg/dL Normal >39 [facility] Comment on above: Order Comment: Speci norma Type: BLOOD SPECIMENOrdering Facility: [facility] Address: [address] [place] [address] Result Comment: 40-5 9 mg/dL, Acceptable >59 mg/dL, High: Negative risk factor for coronary heart disease <40 mg/dL, Low: Positive risk factor for coronary heart disease Performed By: #### 2 4323-8, LIPNF ####[facility] LABCLIA [id number] [address] OF [facility] LDL CHOLESTEROL, NF 82 mg/dL Normal <100 [facility] Comment on above: Order Comment: Abigail norma Type: BLOOD SPECIMENOrdering Facility: [facility] Address: [address] [place] [address] Result Comment: <100 mg/dL, Optimal 100-129 mg/dL, Near optimal/above optimal 130-159 mg/dL, Borderline high 160-189 mg/dL, High >189 mg/dL, Very high Secondary prevention optimal LDL Cholesterol levels are recommended to be < 70 mg/dL Performed By: #### 2 4323-8, LIPNF ####[facility] LABCLIA [id number] [address] OF [facility] LDL/HDL RATIO, NF 1.58 mg/dL Normal <2.54 [facility] Comment on above: Order Comment: Abigail green Type: BLOOD SPECIMENOrdering Facility: [facility] Address: [address] [place] [address] Result Comment: Refe rence: 1. National Cholesterol Education Program ATP III Guideline At-A-Glance Quick Desk Reference: National Heart, Lung, and Blood [place]. National Institutes of Health. 2001: NIH Publication No. 01-3305. 2. An International Atherosclerosis Society position paper: global recommendations for the management of dyslipidemia: executive summary, Atherosclerosis. 2014: 232(2):410-413. Performed By: #### 2 4323-8, LIPNF ####[facility] LABCLIA [id number] [place] [address] [place] NON HDL CHOL, NF 98 mg/dL Normal <130 [facility] Comment on above: Order Comment: Speci men Type: BLOOD SPECIMENOrdering Facility: [facility] Address: [address] [place] [address] Result Comment: <130 mg/dL, Optimal 130-159 mg/dL, Near optimal/above optimal 160-189 mg/dL, Borderline high 190-219 mg/dL, High >219 mg/dL, Very high Secondary prevention optimal non HDL Cholesterol levels are recommended to be <100 mg/dL Performed By: #### 2 4323-8, LIPNF ####[facility] LABCLIA [id number] [place] [address] [place] T CHOL/HDL RATIO NF 2.88 mg/dL Normal <5.10 [facility] Comment on above: Order Comment: Speci men Type: BLOOD SPECIMENOrdering Facility: [facility] Address: [address] [place] [address] Performed By: #### 2 4323-8, LIPNF ####[facility] LABCLIA [id number] [place] [address] [place] TRIGLYCERIDES, NF 81 mg/dL Normal <150 [facility] Comment on above: Order Comment: Speci men Type: BLOOD SPECIMENOrdering Facility: [facility] Address: [address] [place] [address] Result Comment: <150 mg/dL, Normal 150-199 mg/dL, Borderline high 200-499 mg/dL, High >499 mg/dL, Very high Performed By: #### 2 4323-8, LIPNF ####[facility] LABIA [id number] [place] [address] [place] VLDL CHOLESTEROL, NF 16 mg/dL Normal <30 [facility] Comment on above: Order Comment: Speci men Type: BLOOD SPECIMENOrdering Facility: [facility] Address: [address] [place] [address] Performed By: #### 2 4323-8, LIPNF ####[facility] LABCLIA [id number] [place] [address] [place] Urinalysis complete panel (U )on 03-14-2024 Bacteria LM.HPF (Urine sed) [#/Area] Negative Normal Negative [facility] Comment on above: Order Comment: Speci men Type: URINE SPECIMENOrdering Facility: [facility] Address: [address] [place] [address] Performed By: #### 2 4356-8 ####[facility] LABCLIA [id number] [place] [address] [place] Bilirubin Ql (U) Negative Normal Negative [facility] Comment on above: Order Comment: Speci men Type: URINE SPECIMENOrdering Facility: [facility] Address: [address] [place] [address] Performed By: #### 2 4356-8 ####[facility] LABCLIA [id number] [place] [address] [place] Clarity (Unsp spec) Clear Normal Clear [facility] Comment on above: Order Comment: Speci men Type: URINE SPECIMENOrdering Facility: [facility] Address: [address] [place] [address] Performed By: #### 2 4356-8 ####[facility] LABCLIA [id number] [place] [address] [place] [facility] Color (U) Yellow Normal Yellow [facility] Comment on above: Order Comment: Speci men Type: URINE SPECIMENOrdering Facility: [facility] Address: [address] [place] [address] Performed By: #### 2 4356-8 ####[facility] LABCLIA [id number] [place] [address] [place] Epithelial cells LM.HPF (Urine sed) [#/Area] None Seen Normal [facility] Comment on above: Order Comment: Speci men Type: URINE SPECIMENOrdering Facility: [facility] Address: [address] [place] [address] Performed By: #### 2 4356-8 ####[facility] LABCLIA [id number] [place] [address] [place] Glucose Test strip (U) [Mass/Vol] Negative Normal Negative [facility] Comment on above: Order Comment: Speci men Type: URINE SPECIMENOrdering Facility: [facility] Address: [address] [place] [address] Performed By: #### 2 4356-8 ####[facility] LABCLIA [id number] [place] [address] [place] Hemoglobin Ql (U) Negative Normal Negative [facility] Comment on above: Order Comment: Speci men Type: URINE SPECIMENOrdering Facility: [facility] Address: [address] [place] [address] Performed By: #### 2 4356-8 ####[facility] LABCLIA [id number] [place] [address] [place] Hyaline casts (Urine sed) [#/Area] 0 /[LPF] Normal 0 /LPF [facility] Comment on above: Order Comment: Speci men Type: URINE SPECIMENOrdering Facility: [facility] Address: [address] [place] [address] Performed By: #### 2 4356-8 ####[facility] LABCLIA [id number] [place] [address] [place] Ketones Ql (U) Negative Normal Negative [facility] Comment on above: Order Comment: Speci men Type: URINE SPECIMENOrdering Facility: [facility] Address: [address] [place] [address] Performed By: #### 2 4356-8 ####[facility] LABCLIA [id number] [place] [address] [place] Leukocyte esterase Test strip Ql (U) Negative Normal Negative [facility] Comment on above: Order Comment: Speci men Type: URINE SPECIMENOrdering Facility: [facility] Address: [address] [place] [address] Performed By: #### 2 4356-8 ####[facility] LABCLIA [id number] [place] [address] [place] Nitrite Ql (U) Negative Normal Negative [facility] Comment on above: Order Comment: Speci men Type: URINE SPECIMENOrdering Facility: [facility] Address: [address] [place] [address] Performed By: #### 2 4356-8 ####[facility] LABCLIA [id number] [place] [address] [place] pH (U) 6.5 [pH] Normal <8.5 [facility] Comment on above: Order Comment: Speci men Type: URINE SPECIMENOrdering Facility: [facility] Address: [address] [place] [address] Performed By: #### 2 4356-8 ####[facility] LABCLIA [id number] [place] [address] [place] Protein (U) [Mass/Vol] Negative Normal Negative Cl [facility] Comment on above: Order Comment: Speci men Type: URINE SPECIMENOrdering Facility: [facility] Address: [address] [place] [address] Performed By: #### 2 4356-8 ####[facility] LABCLIA [id number] [place] [address] [place] RBC LM.HPF (Urine sed) [#/Area] 0-2 /HPF Normal 0-2 /HPF [facility] Comment on above: Order Comment: Speci men Type: URINE SPECIMENOrdering Facility: [facility] Address: [address] [place] [address] Performed By: #### 2 4356-8 ####[facility] LABIA [id number] [place] [address] [place] Specific gravity (U) [Rel density] 1.006 Normal 1.005-1.030 [facility] Comment on above: Order Comment: Speci men Type: URINE SPECIMENOrdering Facility: [facility] Address: [address] [place] [address] Performed By: #### 2 4356-8 ####[facility] [id number] [place] [address] [place] Urobilinogen Ql (U) 0.2 EU/dL Normal 0.2-1.0 EU/dL [facility] Comment on above: Order Comment: Speci men Type: URINE SPECIMENOrdering Facility: [facility] Address: [address] [place] [address] Performed By: #### 2 4356-8 ####[facility] [id number] [place] [address] [place] WBC LM.HPF (Urine sed) [#/Area] 0-5 /HPF Normal 0-5 /HPF [facility] Comment on above: Order Comment: Speci men Type: URINE SPECIMENOrdering Facility: [facility] Address: [address] [place] [address] Performed By: #### 2 4356-8 ####[facility] [id number] [place] [address] [place] Absolute lymphocyte counton 09-03-2023 Lymphocytes Auto (Unsp spec) [#/Vol] 1.72 10*3/uL 0.83-4.51 [facility] Automated lymphocyte count a s percentage of total leukocyteson 09-03-2023 Lymphocytes/100 WBC Auto (Unsp spec) 25.4 % 19-41 [facility] Basophil percentageon 2023 Basophils/100 WBC (Bld) 0.9 % 0-1 [facility] Eosinophils/100 WBC (Bld) 4.7 % 0-5 [facility] Hemoglobin (Bld) [Mass/Vol] 10.4 g/dL 12.0-15.0 [facility] Monocytes/100 WBC (Bld) 12.1 % 0-10 [facility] Neutrophils (Bld) [#/Vol] 3.8 10*3/uL 2.0-7.7 [facility] Neutrophils/100 WBC (Bld) 56.3 % 47-70 [facility] WBC (Bld) [#/Vol] 6.8 10*3/uL 4.4-11.0 [facility] Determination of erythrocyte mean corpuscular volume (MCV)on 09-03-2023 MCV (RBC) [Entitic vol] 92.8 fL 81-99 [facility] Erythrocyte distribution wid th ratioon 09-03-2023 Erythrocyte distribution width (RBC) [Ratio] 14.6 % 11.6-14.6 [facility] Erythrocyte distribution wid th standard deviationon 09-03-2023 Erythrocyte distribution width (RBC) [Entitic vol] 50.0 fL 35.1-43.9 [facility] Hematocrit Auto (Bld) [Volum e fraction]on 09-03-2023 Hematocrit (Bld) [Volume fraction] 33.3 % 37-47 [facility] Immature granulocytes/100 WB C Auto (Bld)on 09-03-2023 Immature granulocytes/100 WBC (Bld) 0.600 % 0.0-0.9 [facility] Comment on above: IG% - Immature Granu locytes (promyelocytes, myelocytes and metamyelocytes) > 1% indicates that a LEFT SHIFT is Present. Laboratory - Hematology and Cell countson 09-03-2023 MCH (RBC) [Entitic mass] 29.0 pg 27.0-32.0 [facility] MCHC (RBC) [Mass/Vol] 31.2 g/dL 32-36 [facility] Nucleated RBC/100 WBC (Bld) [Ratio] 0 % 0-5 [facility] Platelet mean volume (Bld) [Entitic vol] 9.7 fL 6.2-12.0 [facility] Platelets (Bld) [#/Vol] 231 10*3/uL 150-450 [facility] RBC Auto (Bld) [#/Vol]on RBC (Bld) [#/Vol] 3.59 10*6/uL 4.2-5.4 [facility] Activated partial thrombopla stin time (aPTT) in platelet poor plasma by coagulation aOrdered By: Steve Baxter on 07-24-2023 aPTT Coag (PPP) [Time] 26.4 s 24.1-36.2 [facility] Basophil percentageOrdered B y: Steve Baxter on 07-24-2023 Chloride [Moles/Vol] 109 mmol/L 98-107 [facility] Glucose [Mass/Vol] 101 mg/dL 74-106 [facility] Comment on above: Fasting Glucose resu lt from 100 to 125 mg/dL suggests IMPAIRED HOMEOSTASIS per A.D.A. criteria. Hemoglobin (Bld) [Mass/Vol] 11.0 g/dL 12.0-15.0 [facility] Potassium [Moles/Vol] 4.0 mmol/L 3.5-5.1 [facility] Sodium [Moles/Vol] 140 mmol/L 136-145 [facility] WBC (Bld) [#/Vol] 4.6 10*3/uL 4.4-11.0 [facility] Determination of erythrocyte mean corpuscular volume (MCV)Ordered By: Steve Baxter on 07-24-2023 MCV (RBC) [Entitic vol] 93.2 fL 81-99 [facility] Erythrocyte distribution wid th ratioOrdered By: Steve Baxter on 07-24-2023 Erythrocyte distribution width (RBC) [Ratio] 14.9 % 11.6-14.6 [facility] Erythrocyte distribution wid th standard deviationOrdered By: Steve Baxter on 07-24-2023 Erythrocyte distribution width (RBC) [Entitic vol] 51.0 fL 35.1-43.9 [facility] Hematocrit Auto (Bld) [Volum e fraction]Ordered By: Steve Baxter on 07-24-2023 Hematocrit (Bld) [Volume fraction] 35.9 % 37-47 [facility] Laboratory - Chemistry and C hemistry - challengeOrdered By: Steve Baxter on 07-24-2023 CO2 [Moles/Vol] 27.0 mmol/L 21.0-32.0 [facility] Urea nitrogen/Creatinine [Mass ratio] 11.1 mg/mg 10-20 [facility] Laboratory - CoagulationOrde red By: Steve Baxter on 07-24-2023 INR Coag (Bld) [Relative time] 1.1 {INR} [facility] PT Coag (PPP) [Time] 14.0 s 11.7-14.9 [facility] Laboratory - Hematology and Cell countsOrdered By: Steve Baxter on 07-24-2023 MCH (RBC) [Entitic mass] 28.6 pg 27.0-32.0 [facility] MCHC (RBC) [Mass/Vol] 30.6 g/dL 32-36 [facility] Platelet mean volume (Bld) [Entitic vol] 9.9 fL 6.2-12.0 [facility] Platelets (Bld) [#/Vol] 246 10*3/uL 150-450 [facility] No Panel InformationOrdered By: Steve Baxter on 07-24-2023 Estimated GFR (MDRD) Amer 50 mL/min >60 [facility] Comment on above: GFR Calc Estimated GFR (MDRD) Non-Af Amer 41 mL/min >60 [facility] Comment on above: Non- GFR Calc RBC Auto (Bld) [#/Vol]Ordere d By: Steve Baxter on 07-24-2023 RBC (Bld) [#/Vol] 3.85 10*6/uL 4.2-5.4 [facility] Serum or plasma calcium mikael urement (mass/volume)Ordered By: Steve Baxter on 07-24-2023 Calcium [Mass/Vol] 8.9 mg/dL 8.5-10.1 [facility] Serum or plasma creatinine m easurement (mass/volume)Ordered By: Steve Baxter on 07-24-2023 Creatinine [Mass/Vol] 1.35 mg/dL 0.55-1.02 [facility] Comment on above: The validity of the calculated GFR & GFRAA in patients over 70 years has not been determined. Clinical correlation is essential. Serum or plasma urea nitroge n measurement (mass/volume)Ordered By: Steve Baxter on 07-24-2023 Urea nitrogen [Mass/Vol] 15 mg/dL 7-18 [facility] Thin prep Papanicolaou smear with manual screeningOrdered By: Steve Baxter on 07-24-2023 Thin prep Papanicolaou smear with manual screening 4 5-15 [facility] Absolute lymphocyte countOrd ered By: Sandi Arias on 05-28-2023 Lymphocytes Auto (Unsp spec) [#/Vol] 1.75 10*3/uL 0.83-4.51 [facility] Basophil percentageOrdered B y: Sandi Arias on 05-28-2023 Basophil percentage Not Reportable [facility] Chloride [Moles/Vol] 111 mmol/L 98-107 [facility] Glucose [Mass/Vol] 133 mg/dL 74-106 [facility] Comment on above: Fasting Glucose resu lt greater than or equal to 126 mg/dL suggests DIABETES MELLITUS per A.D.A. criteria. Neutrophils (Bld) [#/Vol] 11.7 10*3/uL 2.0-7.7 [facility] Potassium [Moles/Vol] 3.7 mmol/L 3.5-5.1 [facility] Sodium [Moles/Vol] 136 mmol/L 136-145 [facility] WBC (Bld) [#/Vol] 14.6 10*3/uL 4.4-11.0 [facility] Blood band neutrophil count as percentage of total leukocytesOrdered By: Sandi Arias on 05-28-2023 Band form neutrophils/100 WBC (Bld) 2 % 0-5 [facility] Blood erythrocytes count (nu mber/volume)Ordered By: Sandi Arias on 05-28-2023 RBC (Bld) [#/Vol] 3.84 10*6/uL 4.2-5.4 [facility] Blood hemoglobin measurement (mass/volume)Ordered By: Sandi Arias on 05-28-2023 Hemoglobin (Bld) [Mass/Vol] 11.3 g/dL 12.0-15.0 [facility] Blood lymphocytes/100 leukoc ytesOrdered By: Sandi Arias on 05-28-2023 Lymphocytes/100 WBC (Bld) 12 % 19-41 [facility] Blood metamyelocytes/100 silvino kocytesOrdered By: Sandi Arias on 05-28-2023 Metamyelocytes/100 WBC (Bld) 7 % 0-1 [facility] Blood monocytes/100 leukocyt esOrdered By: Sandi Arias on 05-28-2023 Monocytes/100 WBC (Bld) 1 % 0-10 [facility] Blood platelet adequacy dete ction by light microscopyOrdered By: Sandi Arias on 05-28-2023 Platelets LM Ql (Bld) ADEQUATE ADEQ [facility] Blood platelet mean volumeOr dered By: Sandi Arias on 05-28-2023 Platelet mean volume (Bld) [Entitic vol] 9.4 fL 6.2-12.0 [facility] Blood segmented neutrophils/ 100 leukocytesOrdered By: Sandi Arias on 05-28-2023 Segmented neutrophils/100 WBC (Bld) 78 % 47-70 [facility] Determination of erythrocyte mean corpuscular volume (MCV)Ordered By: Sandi Arias on 05-28-2023 MCV (RBC) [Entitic vol] 88.0 fL 81-99 [facility] Hematocrit Auto (Bld) [Volum e fraction]Ordered By: Sandi Arias on 05-28-2023 Hematocrit (Bld) [Volume fraction] 33.8 % 37-47 [facility] Laboratory - Chemistry and C hemistry - challengeOrdered By: Sandi Arias on 05-28-2023 CO2 [Moles/Vol] 20.0 mmol/L 21.0-32.0 [facility] Urea nitrogen/Creatinine [Mass ratio] 12.1 mg/mg 10-20 [facility] Laboratory - Hematology and Cell countsOrdered By: Sandi Arias on 05-28-2023 Erythrocyte distribution width (RBC) [Entitic vol] 50.8 fL 35.1-43.9 [facility] Erythrocyte distribution width (RBC) [Ratio] 15.6 % 11.6-14.6 [facility] MCH (RBC) [Entitic mass] 29.4 pg 27.0-32.0 [facility] MCHC Auto (RBC) [Mass/Vol]Or dered By: Sandi Arias on 05-28-2023 MCHC (RBC) [Mass/Vol] 33.4 g/dL 32-36 [facility] Comment on above: Delta: 31.4 on 05/27-0555 No Panel InformationOrdered By: Sandi Arias on 05-28-2023 Estimated Creatinine Clearance Calc 54.62 ml/min [facility] Estimated GFR (MDRD) Amer 79 mL/min >60 [facility] Comment on above: GFR CalcPrevious reported result: 79 mL/minEdited by: ISAIAH on 05/28/23:1309 AMENDED REPORT 05/28/23 1309 EST GFR - AA previously reported as: 79 mL/min Estimated GFR (MDRD) Non-Af Amer 65 mL/min >60 [facility] Comment on above: Non- GFR CalcPrevious reported result: 65 mL/minEdited by: ISAIAH on 05/28/23:1309 AMENDED REPORT 05/28/23 1309 EST GFR previously reported as: 65 mL/min Thyroid Stimulating Hormone (TSH) 1.02 uIU/mL 0.358-3.74 [facility] Platelets bldOrdered By: Emeli Arias on 05-28-2023 Platelets (Bld) [#/Vol] 420 10*3/uL 150-450 [facility] RBC morphologyOrdered By: Urvashi Arias on 05-28-2023 RBC morphology finding Nom (Bld) NORM C+C NORMAL NORM C&C [facility] Review by pathologistOrdered By: Sandi Arias on 05-28-2023 Pathologist review Max (Unsp spec) [Interp] Reviewed [facility] Comment on above: Previous reported re sult: Monica diaz Edited by: MAVERICK on 05/29/23:7727Neutrophilic leukocytosis with left shift.Clinical correlation necessary.Ector Henson M.D. 05/29/23 AMENDED REPORT 05/29/23 1341 PATH REV previously reported as: Monica foll Serum or plasma calcium mikael urement (mass/volume)Ordered By: Sandi Arias on 05-28-2023 Calcium [Mass/Vol] 9.1 mg/dL 8.5-10.1 [facility] Serum or plasma creatinine m easurement (mass/volume)Ordered By: Sandi Arias on 05-28-2023 Creatinine [Mass/Vol] 0.91 mg/dL 0.55-1.02 [facility] Comment on above: The validity of the calculated GFR & GFRAA in patients over 70 years has not been determined. Clinical correlation is essential. Serum or plasma urea nitroge n measurement (mass/volume)Ordered By: Sandi Arias on 05-28-2023 Urea nitrogen [Mass/Vol] 11 mg/dL 7-18 [facility] Thin prep Papanicolaou smear with manual screeningOrdered By: Sandi Arias on 05-28-2023 Thin prep Papanicolaou smear with manual screening 5 5-15 [facility] Total cell countOrdered By: Sandi Arias on 05-28-2023 Cells counted Molgen (Bld/Tiss) [#] 100 MANUAL DIFF [facility] Blood eosinophils/100 leukoc ytesOrdered By: Jason Marques on 05-27-2023 Eosinophils/100 WBC (Bld) 1 % 0-5 [facility] Laboratory - Hematology and Cell countsOrdered By: Jsaon Marques on 05-27-2023 Myelocytes/100 WBC (Bld) 4 % 0-0 [facility] Basophil percentageOrdered B y: Jason Marques on 05-26-2023 Basophils/100 WBC (Bld) 0.6 % 0-1 [facility] Eosinophils/100 WBC (Bld) 0.3 % 0-5 [facility] Blood lymphocytes/100 leukoc ytesOrdered By: Jason Marques on 05-26-2023 Lymphocytes/100 WBC (Bld) 8.6 % 19-41 [facility] Blood monocytes/100 leukocyt esOrdered By: Jason Marques on 05-26-2023 Monocytes/100 WBC (Bld) 9.5 % 0-10 [facility] Laboratory - Hematology and Cell countsOrdered By: Jason Marques on 05-26-2023 Immature granulocytes/100 WBC (Bld) 3.900 % 0.0-0.9 [facility] Comment on above: IG% - Immature Granu locytes (promyelocytes, myelocytes and metamyelocytes) > 1% indicates that a LEFT SHIFT is Present. Nucleated RBC/100 WBC (Bld) [Ratio] 0 % 0-5 [facility] Bacteria identified Respirat ory culture Nom (Unsp spec)Ordered By: Darius Plummer on 05-25-2023 Respiratory Culture Streptococcus pneumoniae [facility] Respiratory Culture Streptococcus pneumoniae [facility] Basophil percentageOrdered B y: Carlotta Head on 05-25-2023 Bilirubin [Mass/Vol] 0.30 mg/dL 0.20-1.00 [facility] Comment on above: For patients on eltr ombopag therapy, use of Dimension [place] TBIL is not recommended. LDH [Catalytic activity/Vol] 246 U/L 84-246 [facility] Protein [Mass/Vol] 6.9 g/dL 6.4-8.2 [facility] Bilirubin Test strip Ql (U)O rdered By: Carlotta Head on 05-25-2023 Bilirubin Ql (U) Negative Negative [facility] Direct bilirubinOrdered By: Carlotta Head on 05-25-2023 Bilirubin.direct [Mass/Vol] 0.12 mg/dL 0.00-0.30 [facility] Gram stain for investigation of transfusion reactionOrdered By: Darius Plummer on 05-25-2023 Microscopic observation Gram stain Nom (Unsp spec) [facility] Microscopic observation Gram stain Nom (Unsp spec) [facility] Ketones Test strip Ql (U)Ord ered By: Carlotta Head on 05-25-2023 Ketones Ql (U) Negative Negative [facility] Laboratory - Chemistry and C hemistry - challengeOrdered By: Carlotta Head on 05-25-2023 ALP [Catalytic activity/Vol] 54 U/L 45-117 [facility] ALT [Catalytic activity/Vol] 32 U/L 13-56 [facility] Globulin (S) [Mass/Vol] 4.8 g/dL 2.2-4.2 [facility] Laboratory - Chemistry and C hemistry - challengeOrdered By: Jason Marques on 05-25-2023 CK [Catalytic activity/Vol] 109 U/L 26-192 [facility] Laboratory - Microbiology an d Antimicrobial susceptibilityOrdered By: Steve Woods on 05-25-2023 Bacteria identified Cx Nom (Bld) No growth in 5 days. [facility] Nitrite Test strip Ql (U)Ord ered By: Carlotta Head on 05-25-2023 Nitrite Ql (U) Negative Negative [facility] No Panel InformationOrdered By: Darius Plummer on 05-25-2023 Streptococcus pneumoniae Antigen (M Streptococcus pneumonia Ag [facility] Streptococcus pneumoniae Antigen (M Streptococcus pneumonia Ag [facility] Methicillin-Resist S.aureus DNA PCR Negative Negative [facility] Protein Test strip Ql (U)Ord ered By: Carlotta Head on 05-25-2023 Protein Ql (U) 15 mg/dl Negative [facility] Serum or plasma albumin mikael urement (mass/volume)Ordered By: Carlotta Head on 05-25-2023 Albumin [Mass/Vol] 2.1 g/dL 3.2-5.0 [facility] Thin prep Papanicolaou smear with manual screeningOrdered By: Carlotta Head on 05-25-2023 Thin prep Papanicolaou smear with manual screening 45 U/L 15-37 [facility] Urine Legionella pneumophila antigen detectionOrdered By: Darius Plummer on 05-25-2023 L. pneumophila Ag Ql (U) [facility] L. pneumophila Ag Ql (U) [facility] Urine blood detectionOrdered By: Carlotta Head on 05-25-2023 RBC Ql (U) Negative Negative [facility] Urine clarityOrdered By: Bebe Head on 05-25-2023 Clarity (U) Clear Clear [facility] Urine color determinationOrd ered By: Carlotta Head on 05-25-2023 Color (U) Yellow Yellow [facility] Urine glucose detectionOrder ed By: Carlotta Head on 05-25-2023 Glucose Ql (U) Normal mg/dl Normal [facility] Urine leukocyte esterase det ection by dipstickOrdered By: Carlotta Head on 05-25-2023 Leukocyte esterase Test strip Ql (U) Negative Negative [facility] Urine pHOrdered By: Carlotta spence on 05-25-2023 pH (U) 7.0 [pH] 5.0 - 8.0 [facility] Urine specific gravity measu rementOrdered By: Carlotta Head on 05-25-2023 Specific gravity (U) [Rel density] 1.005 1.002-1.030 [facility] Urobilinogen Auto test strip Ql (U)Ordered By: Carlotta Head on 05-25-2023 Urobilinogen Ql (U) Normal mg/dl Normal [facility] Absolute lymphocyte countOrd ered By: ED PROVIDER on 05-24-2023 Lymphocytes Auto (Unsp spec) [#/Vol] 0.78 10*3/uL 0.83-4.51 [facility] Comment on above: Previous reported re sult: 0.71 X10^3/uLEdited by: DANGELO on 05/24/23:2148 AMENDED REPORT 05/24/232148 Absolute Lymph previously reported as: 0.71 L X10^3/uL Basophil percentageOrdered B y: Steve Woods on 05-24-2023 Lactate [Moles/Vol] 1.4 mmol/L 0.4-2.0 [facility] Basophil percentageOrdered B y: ED PROVIDER on 05-24-2023 Basophil percentage [employer] [facility] Comment on above: Previous reported re sult: [...] 0.3 % Chloride [Moles/Vol] 98 mmol/L 98-107 [facility] Glucose [Mass/Vol] 108 mg/dL 74-106 [facility] Comment on above: Fasting Glucose resu lt from 100 to 125 mg/dL suggests IMPAIRED HOMEOSTASIS per A.D.A. criteria. Neutrophils (Bld) [#/Vol] 10.4 10*3/uL 2.0-7.7 [facility] Comment on above: Previous reported re sult: 10.4 X10^3/uLEdited by: DANGELO on 05/24/23:2148 AMENDED REPORT 05/24/232148 Absolute Neut previously reported as: 10.4 H X10^3/uL Potassium [Moles/Vol] 3.0 mmol/L 3.5-5.1 [facility] Sodium [Moles/Vol] 128 mmol/L 136-145 [facility] WBC (Bld) [#/Vol] 13.0 10*3/uL 4.4-11.0 [facility] Blood band neutrophil count as percentage of total leukocytesOrdered By: ED PROVIDER on 05-24-2023 Band form neutrophils/100 WBC (Bld) 10 % 0-5 [facility] Blood erythrocytes count (nu mber/volume)Ordered By: ED PROVIDER on 05-24-2023 RBC (Bld) [#/Vol] 3.99 10*6/uL 4.2-5.4 [facility] Blood hemoglobin measurement (mass/volume)Ordered By: ED PROVIDER on 05-24-2023 Hemoglobin (Bld) [Mass/Vol] 11.5 g/dL 12.0-15.0 [facility] Blood lymphocytes/100 leukoc ytesOrdered By: ED PROVIDER on 05-24-2023 Lymphocytes/100 WBC (Bld) [employer] [facility] Comment on above: Previous reported re sult: 5.5 %Edited by: DANGELO on 05/24/23:2147 AMENDED REPORT 05/24/232147 LY% previously reported as: 5.5 L % Lymphocytes/100 WBC (Bld) 6 % 19-41 [facility] Blood monocytes/100 leukocyt esOrdered By: ED PROVIDER on 05-24-2023 Monocytes/100 WBC (Bld) [employer] [facility] Comment on above: Previous reported re sult: 8.2 %Edited by: DANGELO on 05/24/23:2147 AMENDED REPORT 05/24/23 2148 MONO% previously reported as: 8.2 % Monocytes/100 WBC (Bld) 14 % 0-10 [facility] Blood platelet mean volumeOr dered By: ED PROVIDER on 05-24-2023 Platelet mean volume (Bld) [Entitic vol] 10.2 fL 6.2-12.0 [facility] Blood segmented neutrophils/ 100 leukocytesOrdered By: ED PROVIDER on 05-24-2023 Segmented neutrophils/100 WBC (Bld) 70 % 47-70 [facility] Determination of erythrocyte mean corpuscular volume (MCV)Ordered By: ED PROVIDER on 05-24-2023 MCV (RBC) [Entitic vol] 86.0 fL 81-99 [facility] Hematocrit Auto (Bld) [Volum e fraction]Ordered By: ED PROVIDER on 05-24-2023 Hematocrit (Bld) [Volume fraction] 34.3 % 37-47 [facility] Laboratory - Chemistry and C hemistry - challengeOrdered By: ED PROVIDER on 05-24-2023 CO2 [Moles/Vol] 22.0 mmol/L 21.0-32.0 [facility] Urea nitrogen/Creatinine [Mass ratio] 11.8 mg/mg 10-20 [facility] Laboratory - Hematology and Cell countsOrdered By: ED PROVIDER on 05-24-2023 Erythrocyte distribution width (RBC) [Entitic vol] 44.2 fL 35.1-43.9 [facility] Erythrocyte distribution width (RBC) [Ratio] 14.1 % 11.6-14.6 [facility] MCH (RBC) [Entitic mass] 28.8 pg 27.0-32.0 [facility] Laboratory - Microbiology an d Antimicrobial susceptibilityOrdered By: Steve Woods on 05-24-2023 Bacteria identified Cx Nom (Bld) No growth in 5 days. [facility] MCHC Auto (RBC) [Mass/Vol]Or dered By: ED PROVIDER on 05-24-2023 MCHC (RBC) [Mass/Vol] 33.5 g/dL 32-36 [facility] No Panel InformationOrdered By: Steve Woods on 05-24-2023 D-Dimer Quantitative (PE/DVT) 2.40 FEU/ug/m 0.27-0.49 [facility] Comment on above: D-Dimer ELEVATED (>0 .49): Additional studies and clinicalassessments are indicated to conclude diagnosis of:Deep Vein Thrombosis (DVT) or Pulmonary Embolism (PE)CRITICAL VALUE VERIFIED. CALLED TO [id number]/233 Vic Sheriff.RESULTS READ BACK BY SAME. No Panel InformationOrdered By: ED PROVIDER on 05-24-2023 Estimated Creatinine Clearance Calc 25.49 ml/min [facility] Estimated GFR (MDRD) Amer 33 mL/min >60 [facility] Comment on above: GFR Calc Estimated GFR (MDRD) Non-Af Amer 27 mL/min >60 [facility] Comment on above: Non- GFR Calc Immature Granulocyte % (Auto) [employer] [facility] Comment on above: Previous reported re sult: 6.000 %Edited by: DANGELO on 05/24/23:2148 AMENDED REPORT 05/24/232148 IM GRAN % previously reported as: 6.000 H % IG% - Immature Granulocytes (promyelocytes, myelocytes and metamyelocytes) > 1% indicates that a LEFT SHIFT is Present. Nucleated Red Blood Cells % [employer] [facility] Comment on above: Previous reported re sult: 0 %Edited by: DANGELO on 05/24/23:2148 AMENDED REPORT 05/24/232148 NRBC, FLAGGED previously reported as: 0 % Troponin I High Sensitivity 25 pg/mL 3.0-54.0 [facility] Comment on above: Please Note: [place] t Units and Gender Specific Reference Ranges. For more information see Policy Stat Procedure [place] High Sensitivity Troponin (TNIH) and attachments. Platelets bldOrdered By: ED PROVIDER on 05-24-2023 Platelets (Bld) [#/Vol] 234 10*3/uL 150-450 [facility] RSV Ag EIAOrdered By: Steve torrez on 05-24-2023 RSV Ag Immune stain Ql (Tiss) [facility] Review by pathologistOrdered By: ED PROVIDER on 05-24-2023 Pathologist review Max (Unsp spec) [Interp] May foll [facility] Serum or plasma calcium mikael urement (mass/volume)Ordered By: ED PROVIDER on 05-24-2023 Calcium [Mass/Vol] 8.8 mg/dL 8.5-10.1 [facility] Serum or plasma creatinine m easurement (mass/volume)Ordered By: ED PROVIDER on 05-24-2023 Creatinine [Mass/Vol] 1.95 mg/dL 0.55-1.02 [facility] Comment on above: The validity of the calculated GFR & GFRAA in patients over 70 years has not been determined. Clinical correlation is essential. Serum or plasma urea nitroge n measurement (mass/volume)Ordered By: ED PROVIDER on 05-24-2023 Urea nitrogen [Mass/Vol] 23 mg/dL 7-18 [facility] Thin prep Papanicolaou smear with manual screeningOrdered By: ED PROVIDER on 05-24-2023 Thin prep Papanicolaou smear with manual screening 8 5-15 [facility] SUSHIL DIAG W BAYRON RIGHTon 10- [facility] US BREAST LTD RIGHTon 2022 [facility] SUSHIL SCREENINGon 02-09-2023 [facility] Basophil percentageOrdered B y: Dr. Raygoza on 11-22-2022 Basophil percentage 4.1 mg/dL 2.5-4.9 [facility] Chloride [Moles/Vol] 108 mmol/L 98-107 [facility] Glucose [Mass/Vol] 84 mg/dL 74-106 [facility] Potassium [Moles/Vol] 3.9 mmol/L 3.5-5.1 [facility] Sodium [Moles/Vol] 139 mmol/L 136-145 [facility] WBC (Bld) [#/Vol] 5.7 10*3/uL 4.4-11.0 [facility] Blood erythrocytes count (nu mber/volume)Ordered By: Dr. Raygoza on 11-22-2022 RBC (Bld) [#/Vol] 4.21 10*6/uL 4.2-5.4 [facility] Blood hemoglobin measurement (mass/volume)Ordered By: Dr. Raygoza on 11-22-2022 Hemoglobin (Bld) [Mass/Vol] 12.2 g/dL 12.0-15.0 [facility] Blood platelet mean volumeOr dered By: Dr. Raygoza on 11-22-2022 Platelet mean volume (Bld) [Entitic vol] 9.9 fL 6.2-12.0 [facility] Determination of erythrocyte mean corpuscular volume (MCV)Ordered By: Dr. Raygoza on 11-22-2022 MCV (RBC) [Entitic vol] 93.6 fL 81-99 [facility] Hematocrit Auto (Bld) [Volum e fraction]Ordered By: Dr. Raygoza on 11-22-2022 Hematocrit (Bld) [Volume fraction] 39.4 % 37-47 [facility] Iron measurement (mass/mass) Ordered By: Dr. Raygoza on 11-22-2022 Iron (Unsp spec) [Mass/Mass] 71 ug/dL 50-170 [facility] - Chemistry and C hemistry - challengeOrdered By: Dr. Raygoza on 11-22-2022 CO2 [Moles/Vol] 26.0 mmol/L 21.0-32.0 [facility] Urea nitrogen/Creatinine [Mass ratio] 9.6 mg/mg 10-20 [facility] - Hematology and Cell countsOrdered By: Dr. Raygoza on 11-22-2022 Erythrocyte distribution width (RBC) [Entitic vol] 51.3 fL 35.1-43.9 [facility] Erythrocyte distribution width (RBC) [Ratio] 14.8 % 11.6-14.6 [facility] MCH (RBC) [Entitic mass] 29.0 pg 27.0-32.0 [facility] MCHC Auto (RBC) [Mass/Vol]Or dered By: Dr. Raygoza on 11-22-2022 MCHC (RBC) [Mass/Vol] 31.0 g/dL 32-36 [facility] No Panel InformationOrdered By: Dr. Raygoza on 11-22-2022 Estimated GFR (MDRD) Amer 50 mL/min >60 [facility] Comment on above: GFR Calc Estimated GFR (MDRD) Non-Af Amer 41 mL/min >60 [facility] Comment on above: Non- GFR Calc Total Iron Binding Capacity 315 ug/dL 250-450 [facility] Platelets bldOrdered By: Dr. Raygoza on 11-22-2022 Platelets (Bld) [#/Vol] 296 10*3/uL 150-450 [facility] Serum or plasma albumin mikael urement (mass/volume)Ordered By: Dr. Raygoza on 11-22-2022 Albumin [Mass/Vol] 3.5 g/dL 3.2-5.0 [facility] Serum or plasma calcium mikael urement (mass/volume)Ordered By: Dr. Raygoza on 11-22-2022 Calcium [Mass/Vol] 9.6 mg/dL 8.5-10.1 [facility] Serum or plasma creatinine m easurement (mass/volume)Ordered By: Dr. Raygoza on 11-22-2022 Creatinine [Mass/Vol] 1.35 mg/dL 0.55-1.02 [facility] Comment on above: The validity of the calculated GFR & GFRAA in patients over 70 years has not been determined. Clinical correlation is essential. Serum or plasma ferritin rand surement (mass/volume)Ordered By: Dr. Raygoza on 11-22-2022 Ferritin [Mass/Vol] 35 ng/mL 8-252 [facility] Serum or plasma urea nitroge n measurement (mass/volume)Ordered By: Dr. Raygoza on 11-22-2022 Urea nitrogen [Mass/Vol] 13 mg/dL 7-18 [facility] XR Chest PA and Lateralon IMPRESSION: No acute radiographic abnormality. Specifically, no airspace consolidations and no pleural effusion. Slumber Room Attendant: BROOKS Transcribe Date/Time: Nov 10 2022 6:39P Dictated by : ALISON SENIOR MD This examination was interpreted and the report reviewed and electronically signed by: ALISON SENIOR MD on Nov 10 2022 6:40PM [facility] DIVISION OF RADIOLOGY * * *Final Report* [...] soft tissues: Unremarkable. DIVISION OF RADIOLOGY Provider, Gilbert Solano - 11/10/2022 * * *Final Report* * [...] no airspace consolidations and no pleural effusion. Slumber Room Attendant: BROOKS Transcribe Date/Time: Nov 10 2022 6:39P Dictated by : ALISON SENIOR MD This examination was interpreted and the report reviewed and electronically signed by: ALISON SENIOR MD on Nov 10 2022 6:40PM EST [facility] Radiology Study observation (narrative) [facility] XR Chest PA and LateralOrder ed By: Cc Provider on 11-10-2022 [facility] XR Chest PA and Lateralon IMPRESSION: Improvement without resolution of the lingular infiltrate. A follow-up exam is recommended. Slumber Room Attendant: PSCCiro Transcribe Date/Time: Oct 08 2022 4:23P Dictated by : FRED RONQUILLO MD This examination was interpreted and the report reviewed and electronically signed by: FRED RONQUILLO MD on Oct 08 2022 4:23PM [facility] DIVISION OF RADIOLOGY * * *Final Report* [...] soft tissues: Unremarkable. DIVISION OF RADIOLOGY Provider, [facility] - 10/08/2022 * * *Final Report* * [...] lingular infiltrate. A follow-up exam is recommended. Slumber Room Attendant: BROOKS Transcribe Date/Time: Oct 08 2022 4:23P Dictated by : FRED RONQUILLO MD This examination was interpreted and the report reviewed and electronically signed by: FRED RONQUILLO MD on Oct 08 2022 4:23PM EST [facility] XR Chest PA and LateralOrder ed By: [facility] Provider on 10-08-2022 [facility] XR Chest PA and Lateralon Radiology Study observation (narrative) [facility] No Panel InformationOrdered By: [facility] Provider on 09-11-2022 Radiology Result ACTIONABLE Abnormal [facility] Comment on above: This report contains an [...] XR Chest PA and LateralOrder ed By: [facility] Provider on 09-11-2022 Interpretation and review of laboratory results Abnormal [facility] XR Chest PA and Lateralon IMPRESSION: Airspace [...] be communicated with the ordering provider via [employer] staff message or phone message by [employer] within 2 business days of report finalization. Algorithms for management of incidental imaging findings can be found on the [facility] Intranet Sharepoint site at: [email or web address]%20Incidenta l%20Findi ngs%20at%20Imaging/For [email or web address] Slumber Room Attendant: BROOKS Transcribe Date/Time: Sep 11 2022 11:09A Dictated by : HARVEY MENDOZA MD This examination was interpreted and the report reviewed and electronically signed by: HARVEY MENDOZA MD on Sep 11 2022 11:11AM [facility] DIVISION OF RADIOLOGY * * *Final Report* [...] Mild degenerative changes. DIVISION OF RADIOLOGY Provider, [facility] - 09/11/2022 * * *Final Report* * [...] be communicated with the ordering provider via [employer] staff message or phone message by [employer] within 2 business days of report finalization. Algorithms for management of incidental imaging findings can be found on the [facility] Intranet Sharepoint site at: [email or web address]%20Incidenta l%20Findi ngs%20at%20Imaging/For ms/AllItems.aspx Slumber Room Attendant: BROOKS Transcribe Date/Time: Sep 11 2022 11:09A Dictated by : HARVEY MENDOZA MD This examination was interpreted and the report reviewed and electronically signed by: HARVEY MENDOZA MD on Sep 11 2022 11:11AM EST [facility] Radiology Study observation (narrative) Susana matos [facility] Bordetella pertussis IgM ant ibody assayon 03-17-2022 B. pertussis IgM IA Qn (S) 3.4 index 0.0-0.9 [facility] Work Phone: Comment on above: Negative <1.0 Border line 1.0 - 1.1 Positive >1.1Performed at: [address] [id number] Director: William Bansal MD, Phone: [phone] CALLED TO ZEN GRAF 03/21/22 1327 Renée Brand.REPORT READ BACK BY SAME. No Panel Informationon 03-17 Bordetella pertussis IgG Antibody 1.99 index 0.00-0.94 [facility] Work Phone: Comment on above: Negative <0.95 Equiv ocal 0.95 - 1.04 Positive >1.04 Serum Treponema species anti body detectionon 03-17-2022 Treponema sp Ab Ql (S) Non-Reactive [facility] Work Phone: SUSHIL SCREENINGon 01-13-2022 [facility] Basophil percentageon 2021 Basophil percentage 4.3 mg/dL 2.5-4.9 [facility] Work Phone: Chloride [Moles/Vol] 107 mmol/L 98-[address] [facility] [address] [facility] Work Phone: Glucose [Mass/Vol] 91 mg/dL 74-106 [facility] Work Phone: [phone] Potassium [Moles/Vol] 4.0 mmol/L 3.5-5.1 [facility] Work Phone: Sodium [Moles/Vol] 138 mmol/L 136-145 [facility] Work Phone: [phone] WBC (Bld) [#/Vol] 8.3 10*3/uL 4.4-11.0 [facility] Work Phone: [phone] Blood erythrocytes count (nu mber/volume)on 11-17-2021 RBC (Bld) [#/Vol] 3.97 10*6/uL 4.2-5.4 [facility]: [phone] Blood hemoglobin measurement (mass/volume)on 11-17-2021 Hemoglobin (Bld) [Mass/Vol] 11.9 g/dL 12.0-15.0 [facility] Work Phone: [phone] Blood platelet mean volumeon 11-17-2021 Platelet mean volume (Bld) [Entitic vol] 9.9 fL 6.2-12.0 [facility] Work Phone: [phone] Determination of erythrocyte mean corpuscular volume (MCV)on 11-17-2021 MCV (RBC) [Entitic vol] 93.5 fL 81-99 [facility] Work Phone: [phone] Hematocrit Auto (Bld) [Volum e fraction]on 11-17-2021 Hematocrit (Bld) [Volume fraction] 37.1 % 37-47 [facility] Work Phone: Laboratory - Chemistry and C hemistry - challengeon 11-17-2021 CO2 [Moles/Vol] 27.0 mmol/L 21.0-32.0 [facility] Work Phone: Urea nitrogen/Creatinine [Mass ratio] 15.3 mg/mg 10-20 [facility] Work Phone: [phone] Laboratory - Hematology and Cell countson 11-17-2021 Erythrocyte distribution width (RBC) [Entitic vol] 44.6 fL 35.1-43.9 [facility] Work Phone: [phone] Erythrocyte distribution width (RBC) [Ratio] 13.1 % 11.6-14.6 [facility] Work Phone: [phone] MCH (RBC) [Entitic mass] 30.0 pg 27.0-32.0 [facility] Work Phone: MCHC Auto (RBC) [Mass/Vol]on 11-17-2021 MCHC (RBC) [Mass/Vol] 32.1 g/dL 32-36 [facility] Work Phone: No Panel Informationon 11-17 Estimated GFR (MDRD) Amer 49 mL/min >60 [facility] Work Phone: Comment on above: GFR Calc Estimated GFR (MDRD) Non-Af Amer 41 mL/min >60 [facility] Work Phone: Comment on above: Non- GFR Calc Platelets bldon 11-17-2021 Platelets (Bld) [#/Vol] 271 10*3/uL 150-450 [facility] Work Phone: Serum or plasma albumin mikael urement (mass/volume)on 11-17-2021 Albumin [Mass/Vol] 3.4 g/dL 3.2-5.0 [facility] Work Phone: Serum or plasma calcium mikael urement (mass/volume)on 11-17-2021 Calcium [Mass/Vol] 9.2 mg/dL 8.5-10.1 [facility] Work Phone: Serum or plasma creatinine m easurement (mass/volume)on 11-17-2021 Creatinine [Mass/Vol] 1.37 mg/dL 0.55-1.02 [facility] Work Phone: Comment on above: The validity of the calculated GFR & GFRAA in patients over 70 years has not been determined. Clinical correlation is essential. Serum or plasma urea nitroge n measurement (mass/volume)on 11-17-2021 Urea nitrogen [Mass/Vol] 21 mg/dL 7-18 [facility] Work Phone: Vital Signs Date Time Vital Sign Value Performing Clinician Facility 01-09-2025 08:50-0400 Body mass index (BMI) [Ratio] 23.6 kg/m2 Dr. Vinny Briones MD Work Phone: [facility] 01-09-2025 08:50-0400 Body weight 66.[address] Vinny Briones MD Work Phone: 8(304)841-379746 [place] [address] 01-09-2025 08:50-0400 Diastolic blood pressure 71 mm[Hg] Dr. Vinny Briones MD Work Phone: 2(959)615-823531 [place] [address] 01-09-2025 08:50-0400 Heart rate 65 /min Dr. Vinny Briones MD Work Phone: 5(262)570-815146 [place] [address] 01-09-2025 08:50-0400 Respiratory rate 18 /min Dr. Vinny Briones MD Work Phone: 2(290)627-885831 [place] [address] 01-09-2025 08:50-0400 SaO2% (BldA) [Mass fraction] 99 % Dr. Vinny Briones MD Work Phone: 6(702)368-814846 [place] [address] 01-09-2025 08:50-0400 Systolic blood pressure 115 mm[Hg] Dr. Vinny Briones MD Work Phone: 5(814)540-079531 [place] [address] 03-21-2024 08:56-0400 Body height 164.6 cm Mindi [place]boro [employer] Work Phone: [phone] [place] [address] 03-21-2024 08:56-0400 Body mass index (BMI) [Ratio] 23.64 kg/m2 Mindi William [employer] MA[employer] LE[employer] ARCH[employer] Work Phone: [facility] 03-21-2024 08:56-0400 Body weight 64.05 kg Mindi William [employer] MA[employer] LE[employer] ARCH[employer]ECT Work Phone: [facility] 03-21-2024 08:56-0400 Diastolic blood pressure 70 mm[Hg] Mindi William [employer] MA[employer] LE[employer] ARCHITECT Work Phone: [facility] 03-21-2024 08:56-0400 Systolic blood pressure 122 mm[Hg] Mindi [place] [employer] MA[employer] LEAD ARCHITECT Work Phone: [phone] [place] [address] 03-14-2024 12:52-0400 Body height 165.7 cm Vinny Briones MD Work Phone: [facility] 03-14-2024 12:52-0400 Body mass index (BMI) [Ratio] 23.52 kg/m2 Vinny Briones MD Work Phone: [facility] 03-14-2024 12:52-0400 Body weight 64.59 kg Vinny Briones MD Work Phone: [facility] 03-14-2024 12:52-0400 Diastolic blood pressure 70 mm[Hg] Vinny Briones MD Work Phone: [facility] 03-14-2024 12:52-0400 Heart rate 76 /min Vinny Briones MD Work Phone: [facility] 03-14-2024 12:52-0400 Systolic blood pressure 105 mm[Hg] Vinny Briones MD Work Phone: [facility] 01-05-2024 14:08-0400 Body mass index (BMI) [Ratio] 22.9 kg/m2 Mindi William [employer] LE[employer] ARCH[employer]ECT Work Phone: [facility] 01-05-2024 14:08-0400 Body temperature 97.81 [degF] Mindi William [employer] MA[employer] LE[employer] ARCHITECT Work Phone: [facility] 01-05-2024 14:08-0400 Body weight 62.9 kg Mindi William [employer] MA[employer] LEAD ARCHITECT Work Phone: [facility] 01-05-2024 14:08-0400 Diastolic blood pressure 68 mm[Hg] Mindi [place] [employer] MAKER.[employer] LEAD ARCHITECT Work Phone: [facility] 01-05-2024 14:08-0400 Heart rate 92 /min Mindi [place] [employer] MAK[employer] LEAD ARCHITECT Work Phone: [facility] 01-05-2024 14:08-0400 Respiratory rate 16 /min Mindi William [employer] LEAD ARCHITECT Work Phone: [facility] 01-05-2024 14:08-0400 SaO2% (BldA) [Mass fraction] 99 % Mindi William [employer] MA[employer] LEAD ARCHITECT Work Phone: [facility] 01-05-2024 14:08-0400 Systolic blood pressure 104 mm[Hg] Mindi Nicholasf [employer] MA[employer] LEAD ARCHITECT Work Phone: [facility] 09-07-2023 13:27-0400 Body weight 59.88 kg Alicia Hamlin [employer] MA[employer] LEAD ARCHITECT Work Phone: [facility] 09-07-2023 13:27-0400 Diastolic blood pressure 60 mm[Hg] Ailcia Hamlin L[employer] MAKER.[employer] LEAD ARCHITECT Work Phone: [facility] 09-07-2023 13:27-0400 Heart rate 84 /min Alicia Hamlin [employer] MA[employer] LEAD ARCHITECT Work Phone: [facility] 09-07-2023 13:27-0400 Respiratory rate 14 /min Alicia Hamlin [employer] MAKER.[employer] LEAD ARCHITECT Work Phone: [facility] 09-07-2023 13:27-0400 Systolic blood pressure 100 mm[Hg] Alicia Hamlin L[employer] MAKER.[employer] LEAD ARCHITECT Work Phone: [facility] 08-02-2023 08:25-0500 Heart rate 65 /min Dr. Vinny Briones Work Phone: [facility] 08-02-2023 06:15-0500 Body temperature 97.8 [degF] Dr. Vinny Briones Work Phone: [facility] 08-02-2023 06:15-0500 Diastolic blood pressure 58 mm[Hg] Dr. Vinny Briones Work Phone: [facility] 08-02-2023 06:15-0500 Respiratory rate 16 /min Dr. Vinny Briones Work Phone: [facility] 08-02-2023 06:15-0500 SaO2% (BldA) [Mass fraction] 100 % Dr. Vinny Briones Work Phone: [facility] 08-02-2023 06:15-0500 Systolic blood pressure 101 mm[Hg] Dr. Vinny Briones Work Phone: 9(833)888-250846 [place] [address] 08-02-2023 00:38-0500 Inhaled oxygen flow rate 2 L/min Dr. Vinny Briones Work Phone: 7(730)761-668031 [place] [address] 08-01-2023 06:29-0500 Body height 167.[address] Vinny Briones Work Phone: 3(329)269-638431 [place] [address] 08-01-2023 06:29-0500 Body mass index (BMI) [Ratio] 21.3 kg/m2 Dr. Vinny Briones Work Phone: 8(183)823-109031 [place] [address] 08-01-2023 06:29-0500 Body weight [address] Vinny Briones Work Phone: 2(554)321-424731 [place] [address] 06-14-2023 10:49-0500 Body mass index (BMI) [Ratio] 21.5 kg/m2 Dr. Vinny Briones Work Phone: 0(342)958-576631 [place] [address] 06-14-2023 10:49-0500 Body weight 60.[address] Vinny Briones Work Phone: 6(348)850-775231 [place] [address] 06-14-2023 10:49-0500 Diastolic blood pressure 60 mm[Hg] Dr. Vinny Briones Work Phone: 3(261)763-085031 [place] [address] 06-14-2023 10:49-0500 Heart rate 60 /min Dr. Vinny Briones Work Phone: 1(959)213-049431 [place] [address] 06-14-2023 10:49-0500 Respiratory rate 16 /min Dr. Vinny Briones Work Phone: 9(278)988-215631 [place] [address] 06-14-2023 10:49-0500 Systolic blood pressure 96 mm[Hg] Dr. Vinny Briones Work Phone: 8(274)987-614531 [place] [address] 05-29-2023 14:03-0500 SaO2% (BldA) [Mass fraction] 90 % Dr. Vinny Briones Work Phone: 7(997)870-318631 [place] [address] 05-29-2023 12:22-0500 Body temperature 97.9 [degF] Dr. Vinny Briones Work Phone: [facility] 05-29-2023 12:22-0500 Diastolic blood pressure 54 mm[Hg] Dr. Vinny Briones Work Phone: [facility] 05-29-2023 12:22-0500 Heart rate 77 /min Dr. Vinny Briones Work Phone: 4(740)525-796146 [place] [address] 05-29-2023 12:22-0500 Respiratory rate 18 /min Dr. Vinny Briones Work Phone: 0(938)681-012046 [place] [address] 05-29-2023 12:22-0500 Systolic blood pressure 93 mm[Hg] Dr. Vinny Briones Work Phone: 6(917)020-413146 [place] [address] 05-27-2023 11:00-0500 Inhaled oxygen flow rate 2 L/min Dr. Vinny Briones Work Phone: 3(673)479-406331 [place] [address] 05-27-2023 09:44-0500 Inhaled oxygen concentration 3 % Dr. Vinny Briones Work Phone: 1(186)392-937546 [place] [address] 05-25-2023 10:48-0500 Body height [address] Vinny Briones Work Phone: 7(022)160-688246 [place] [address] 05-25-2023 10:48-0500 Body weight 63.[address] Vinny Briones Work Phone: 7(269)458-272146 [place] [address] 05-25-2023 05:56-0500 Body height 168 cm [facility] 05-25-2023 05:56-0500 Body mass index (BMI) [Ratio] 22.5 kg/m2 [facility] 05-25-2023 05:56-0500 Body weight 63.6 kg [facility] 05-25-2023 05:51-0500 Body temperature 98.7 [degF] [facility] 05-25-2023 05:51-0500 Diastolic blood pressure 60 mm[Hg] [facility] 05-25-2023 05:51-0500 Heart rate 100 /min [facility] 05-25-2023 05:51-0500 Respiratory rate 20 /min [facility] 05-25-2023 05:51-0500 SaO2% (BldA) [Mass fraction] 94 % [facility] 05-25-2023 05:51-0500 Systolic blood pressure 115 mm[Hg] [facility] 05-25-2023 03:38-0500 Inhaled oxygen flow rate 2 L/min [facility] 2023 10:45-0400 Body temperature 98.29 [degF] Catherine Athy PA-C Work Phone: [facility] 2023 10:45-0400 Body weight 67.5 kg Catherine Athy PA-C Work Phone: [facility] 2023 10:45-0400 Diastolic blood pressure 74 mm[Hg] Catherine Athy PA-C Work Phone: [facility] 2023 10:45-0400 Heart rate 98 /min Catherine Athy PA-C Work Phone: [facility] 2023 10:45-0400 Respiratory rate 20 /min Catherine Athy PA-C Work Phone: [facility] 2023 10:45-0400 SaO2% (BldA) [Mass fraction] 97 % Catherine Athy PA-C Work Phone: [facility] 2023 10:45-0400 Systolic blood pressure 124 mm[Hg] Catherine Athy PA-C Work Phone: [facility] 10-09-2022 13:30-0400 Body temperature 98.4 [degF] Yokasta Mcnulty PA-C Work Phone: [facility] 10-09-2022 13:30-0400 Body weight 66.68 kg Yokasta Mcnulty PA-C Work Phone: [facility] 10-09-2022 13:30-0400 Diastolic blood pressure 78 mm[Hg] Yokasta Mcnulty PA-C Work Phone: [facility] 10-09-2022 13:30-0400 Heart rate 64 /min Yokasta Mcnulty PA-C Work Phone: [facility] 10-09-2022 13:30-0400 Respiratory rate 16 /min Yokasta Mcnulty PA-C Work Phone: [facility] 10-09-2022 13:30-0400 SaO2% (BldA) [Mass fraction] 100 % Yokasta Mcnulty PA-C Work Phone: [facility] 10-09-2022 13:30-0400 Systolic blood pressure 102 mm[Hg] Yokasta Mcnulty PA-C Work Phone: [facility] 09-15-2022 08:58-0400 Body temperature 97.7 [degF] Yokasta Mcnulty PA-C Work Phone: [facility] 09-15-2022 08:58-0400 Body weight 66.22 kg Yokasta Mcnulty PA-C Work Phone: [facility] 09-15-2022 08:58-0400 Diastolic blood pressure 76 mm[Hg] Yokasta Mcnulty PA-C Work Phone: [facility] 09-15-2022 08:58-0400 Heart rate 98 /min Yokasta Mcnulty PA-C Work Phone: [facility] 09-15-2022 08:58-0400 Respiratory rate 18 /min Yokasta Mcnulty PA-C Work Phone: [facility] 09-15-2022 08:58-0400 SaO2% (BldA) [Mass fraction] 99 % Yokasta Mcnulty PA-C Work Phone: [facility] 09-15-2022 08:58-0400 Systolic blood pressure 108 mm[Hg] Yokasta Mcnulty PA-C Work Phone: [facility] 09-11-2022 10:36-0400 Body temperature 99.61 [degF] Catherine Athy PA-C Work Phone: [facility] 09-11-2022 10:36-0400 Body weight 67.13 kg Catherine Athy PA-C Work Phone: [facility] 09-11-2022 10:36-0400 Diastolic blood pressure 62 mm[Hg] Catherine Athy PA-C Work Phone: [facility] 09-11-2022 10:36-0400 Heart rate 114 /min Catherine Athy PA-C Work Phone: [facility] 09-11-2022 10:36-0400 Respiratory rate 18 /min Catherine Athy PA-C Work Phone: [facility] 09-11-2022 10:36-0400 SaO2% (BldA) [Mass fraction] 95 % Catherine Athy PA-C Work Phone: [facility] 09-11-2022 10:36-0400 Systolic blood pressure 122 mm[Hg] Catherine Athy PA-C Work Phone: [facility] 08-10-2022 16:11-0500 Body weight 69.4 kg Alicia Alexoble [employer] LE[employer] ARCHITECT Work Phone: [facility] 08-10-2022 16:11-0500 Diastolic blood pressure 80 mm[Hg] Alicia Alexoble LENS MAKER.JAVA LEAD ARCHITECT Work Phone: [facility] 08-10-2022 16:11-0500 Heart rate 80 /min Alicia Alexoble [employer]ENS MAKER.J[employer] LEAD ARCHITECT Work Phone: [facility] 08-10-2022 16:11-0500 Respiratory rate 14 /min Alicia Alexoble LENS MAKER.JAVA LEAD ARCHITECT Work Phone: [facility] 08-10-2022 16:11-0500 Systolic blood pressure 124 mm[Hg] Alicia Knoble LENS MAKER.JAVA LEAD ARCHITECT Work Phone: [facility] 01-13-2022 07:01-0400 Body height 165.7 cm Mindi [place] LENS MAKER.JAVA LEAD ARCHITECT Work Phone: [facility] 01-13-2022 07:01-0400 Body weight 69.67 kg Mindi [place] LENS MAKER.JAVA LEAD ARCHITECT Work Phone: [facility] 01-13-2022 07:01-0400 Diastolic blood pressure 66 mm[Hg] Mindi William [employer] MAK[employer] LEAD ARCHITECT Work Phone: [facility] 01-13-2022 07:01-0400 Systolic blood pressure 120 mm[Hg] Mindi William [employer] MA[employer] LEAD ARCHITECT Work Phone: [facility] Encounters Encounter Date Encounter Type Care Provider Facility Start: 01-09-2025 End: 01-09-2025 Patient encounter procedure Jessica SHEETS -[facility] Work Phone: Start: 01-09-2025 End: 01-09-[address] Vinny Briones MD Work Phone: -[facility] Start: 01-08-2025 ambulatory Vinny Briones Facility :[facility] Start: 01-02-2025 End: 01-02-2025 Chart abstracting Vinny Briones MD Work Phone: [facility] Comment on above: Outside Opthalmology Start: 12-31-2024 Encounter for preprocedural laboratory examination Garret Longoria [facility] Start: 12-26-2024 End: 12-26-2024 Chart abstracting Vinny Briones MD Work Phone: [facility] Comment on above: Outside [id number] Ordered (Nephrology) Start: 12-25-2024 End: 12-25-[address] Vinny Briones MD Work Phone: -[facility] Start: 12-25-2024 End: 12-25-[address] Garret Longoria MD -[facility] Work Phone: Start: 12-25-2024 End: 12-25-2024 ambulatory Vinny Briones Facility:[facility] Start: 11-19-2024 End: 11-19-2024 Chart abstracting Batsheva Hassan MA [facility] Comment on above: Consult (Outside nep hrology /) Start: 11-11-2024 End: 11-11-2024 Chart abstracting Vinny Briones MD Work Phone: [facility] Comment on above: Outside [id number] Ordered Start: 11-10-2024 End: 11-10-[address] Vinny Briones MD Work Phone: [facility] Work Phone: Start: 11-10-2024 End: 11-10-[address] Ly Raygoza DO -Laboratory Work Phone: Start: 11-10-2024 End: 11-10-2024 ambulatory Ly Raygoza Facility:[facility] Start: 03-21-2024 Encounter for gynecological examination (general) (routine) without abnormal findings VINNY BRIONES [facility] Start: 03-21-2024 End: 03-21-2024 ambulatory VINNY BRIONES Facility:[facility] Start: 03-21-2024 End: 03-21-2024 Patient encounter procedure Mindi Thomas APRN.CNP Work Phone: OB/Gynecology Comment on above: Encounter for gyneco logical examination (general) (routine) without abnormal findings (Primary Dx); Encounter for screening mammogram for breast cancer Start: 03-21-2024 End: 03-21-2024 Patient encounter status Mindi Thomas APRN.JAVA LEAD ARCHITECT Work Phone: [facility] Start: 03-21-2024 End: 03-21-2024 ambulatory VINNY BRIONES Facility:[facility] Start: 03-21-2024 End: 03-21-2024 Subsequent hospital visit by physician Screen Mammo [facility] Comment on above: Encounter for screen ing mammogram for malignant neoplasm of breast [Z12.31] Start: 03-15-2024 End: 03-15-2024 Telephone encounter Vinny Briones MD Work Phone: [facility] Comment on above: Results Start: 03-14-2024 End: 03-14-2024 ambulatory VINNY BRIONES Facility:[facility] Start: 03-14-2024 End: 03-14-2024 Patient encounter procedure Vinny Briones MD Work Phone: [facility] Comment on above: Encounter for Medica [...] Start: 03-14-2024 End: 03-14-2024 ambulatory VINNY BRIONES Facility:[facility] Start: 01-14-2024 Chart abstracting Batsheva barraza [facility] Comment on above: Results - Ct ([facility] ) Start: 01-10-2024 Chart abstracting Vinny wall MD Work Phone: [facility] Comment on above: Outside Bjri-Rcp-XMM Ordered Start: 01-05-2024 End: 01-05-2024 Patient encounter procedure Mindi Thomas APRN.CNP Work Phone: [facility] Comment on above: Bacterial sinusitis (Primary Dx) Start: 12-31-2023 Chart abstracting Vinny wall MD Work Phone: [facility] Comment on above: Outside Diabetic Eye Exam Outside Urology Start: 12-11-2023 Chart abstracting Batsheva barraza [facility] Comment on above: Consult (Cardiology ) Start: 11-27-2023 Telephone encounter Vinny Briones MD Work Phone: [facility] Comment on above: Results Start: 11-20-2023 Chart abstracting Vinny wall MD Work Phone: [facility] Comment on above: Outside Nephrology Start: 11-13-2023 Chart abstracting Batsheva barraza [facility] Comment on above: Results Start: 11-01-2023 Chart abstracting Vinny wall MD Work Phone: [facility] Comment on above: Outside Echo Start: 09-21-2023 Telephone encounter Yokasta miranda PA-C Work Phone: [facility] Comment on above: Results Start: 09-17-2023 Telephone encounter Vinny Briones MD Work Phone: [facility] Comment on above: Results Start: 09-07-2023 End: 09-07-2023 Patient encounter procedure Alicia Johnsonmonroe LEVINEJAVA LEAD ARCHITECT Work Phone: [facility] Comment on above: Abnormal EKG (Primar y Dx); Renal mass; Stage 3a chronic kidney disease (HCC) Start: 09-03-2023 End: 09-03-[address] Vinny Briones Work Phone: [facility] Work Phone: Start: 09-03-2023 End: 09-03-[address] Vinny Briones Work Phone: [facility] Work Phone: Start: 09-03-2023 Chart abstracting Vinny wall MD Work Phone: [facility] Comment on above: Outside Hsxe-Cvv-PPH Ordered Start: 08-21-2023 Chart abstracting Vinny wall MD Work Phone: [facility] Comment on above: Outside Urology Start: 08-01-2023 Chart abstracting Vinny wall MD Work Phone: [facility] Comment on above: Outside Procedure (Discharge Instructions, H&P) Start: 08-01-2023 End: 08-02-2023 Admission to same day surgery center Dr. Vinny Briones Work Phone: [facility] Start: 08-01-2023 End: 08-02-[address] Vinny Briones Work Phone: [facility] Work Phone: Start: 07-25-2023 Chart abstracting Vinny wall MD Work Phone: [facility] Comment on above: Outside Opnc-Pul-EML Ordered Start: 06-26-2023 End: 06-26-[address] Vinny Briones Work Phone: [facility] Work Phone: Start: 06-14-2023 End: 06-14-[address] Vinny Briones Work Phone: [facility] Work Phone: Start: 05-29-2023 Non-patient / Non-visit Dr. Collin Briones Work Phone: [facility] Work Phone: Start: 05-29-2023 Non-patient / Non-visit Dr. Collin Briones Work Phone: [facility] Start: 05-28-2023 Non-patient / Non-visit Dr. Collin Briones Work Phone: [facility] Work Phone: Start: 05-27-2023 Non-patient / Non-visit Dr. Collin Briones Work Phone: [facility] Work Phone: Start: 05-26-2023 Non-patient / Non-visit Dr. Collin Briones Work Phone: [facility] Work Phone: Start: 05-25-2023 Non-patient / Non-visit Dr. Collin Briones Work Phone: [facility] Start: 05-25-2023 Non-patient / Non-visit Dr. Collin Briones Work Phone: [facility] Start: 05-25-2023 End: 05-29-2023 Evaluation and management of inpatient [facility] Work Phone: Start: 03-13-2023 End: 03-13-2023 Subsequent hospital visit by physician Diagnostic Mammo [facility] M[facility] Comment on above: Abnormal mammogram [ R92.8] Start: 02-26-2023 Chart abstracting Vinny wall MD Work Phone: [facility] Comment on above: Outside Hinw-Jay-HZS Ordered Start: 2023 End: 2023 Patient encounter procedure Catherine Fernández PA-C Work Phone: [facility] Comment on above: Acute pansinusitis, recurrence not specified (Primary Dx) Start: 02-13-2023 Telephone encounter Mindi goldberg APRN.CNP Work Phone: OB/Gynecology Comment on above: Orders Mammogram Result Michael l Back Start: 02-12-2023 Documentation procedure Mammog jacqueline Coordinator [facility] Start: 02-12-2023 Letter encounter Mammography Coordinator [facility] Department Start: 02-09-2023 End: 02-09-2023 Subsequent hospital visit by physician Screen Mammo [facility] Comment on above: Encounter for screen ing mammogram for breast cancer [Z12.31] Start: 11-29-2022 Chart abstracting Vinny wall MD Work Phone: [facility] Comment on above: Outside Nephrology Start: 11-24-2022 Chart abstracting Vinny wall MD Work Phone: [facility] Comment on above: Results Start: 11-22-2022 End: 11-22-2022 ambulatory [facility] Work Phone: Start: 11-22-2022 End: 11-22-2022 Patient encounter procedure [facility] Start: 11-10-2022 End: 11-10-2022 Subsequent hospital visit by physician [facility] Work Phone: Radiology Comment on above: Bacterial pneumonia [J15.9] Start: 10-09-2022 Telephone encounter Yokasta miranda PA-C Work Phone: [facility] Comment on above: Results Start: 10-09-2022 End: 10-09-2022 Patient encounter procedure Yokasta Mcnulty PA-C Work Phone: [facility] Comment on above: Bacterial pneumonia (Primary Dx) Start: 10-06-2022 End: 10-06-2022 Subsequent hospital visit by physician [facility] Work Phone: Radiology Comment on above: Bacterial pneumonia [J15.9] Start: 09-15-2022 End: 09-15-2022 Patient encounter procedure Yokasta Mcnulty PA-C Work Phone: [facility] Comment on above: Bacterial pneumonia (Primary Dx) Start: 09-11-2022 End: 09-11-2022 Subsequent hospital visit by physician [facility] Work Phone: Radiology Comment on above: Acute cough [R05.1] Start: 09-11-2022 End: 09-11-2022 Patient encounter procedure Catherine Fernández PA-C Work Phone: [facility] Comment on above: Bacterial pneumonia (Primary Dx) Start: 09-07-2022 Chart abstracting Vinny wall MD Work Phone: [facility] Comment on above: Consult (/) Start: 08-10-2022 End: 08-10-2022 Patient encounter procedure Alicia Hamlin APRN.JAVA LEAD ARCHITECT Work Phone: [facility] Comment on above: Medicare annual well ness visit, initial (Primary Dx); Essential hypertension; Mixed hyperlipidemia; Anemia of chronic disease; Stage 3a chronic kidney disease (HCC); Celiac disease; Well adult exam Start: 08-10-2022 End: 08-10-2022 Patient encounter status Alicia Hamlin APRN.JAVA LEAD ARCHITECT Work Phone: [facility] Start: 07-12-2022 Telephone encounter Batsheva Hassan MA [facility] Comment on above: Appointment Start: 07-10-2022 ambulatory [facility]pita Head [facility] Comment on above: Population Health [facility] ([facility]) Start: 04-05-2022 ambulatory Batsheva Hassan MA [facility] Comment on above: Results Start: 04-05-2022 E-mail encounter annette m caregiver Batsheva Hassan [facility] Start: 03-17-2022 End: 03-17-2022 ambulatory [facility] Work Phone: Start: 03-17-2022 End: 03-17-2022 [facility] [place] Start: 02-13-2022 Telephone encounter Vinny Briones MD Work Phone: [facility] Comment on above: Patient Question Start: 01-13-2022 Documentation procedure Mammog jacqueline [facility] Start: 01-13-2022 Letter encounter Mammography Coordinator [facility] Department Start: 01-13-2022 Telephone encounter Mindi goldberg APRN.JAVA LEAD ARCHITECT Work Phone: OB/Gynecology Comment on above: Orders Start: 01-13-2022 End: 01-13-2022 Subsequent hospital visit by physician Screen Mammo [facility] Comment on above: Encounter for screen ing mammogram for breast cancer [Z12.31] Start: 01-13-2022 End: 01-13-2022 Patient encounter procedure Mindi Thomas APRN.JAVA LEAD ARCHITECT Work Phone: OB/Gynecology Comment on above: Encounter for gyneco logical examination (general) (routine) without abnormal findings (Primary Dx); Encounter for screening mammogram for breast cancer Start: 01-13-2022 End: 01-13-2022 Patient encounter status Mindi Thomas APRN.JAVA LEAD ARCHITECT Work Phone: OB/Gynecology Start: 11-17-2021 End: 11-17-2021 Patient encounter procedure [facility] Start: 01-30-2018 Patient encounter status Mindi Thomas APRN.JAVA LEAD ARCHITECT Work Phone: [facility] Work Phone: Start: 10-21-2015 End: 12-02-2015 Patient encounter status Vinny Briones MD Work Phone: [facility] Procedures Date Procedure Procedure Detail Performing Clinician Start: 12-25-2024 Computed tomography of abdomen and pelvis with contrast Dr. Vinny Briones MD Work Phone: Start: 11-10-2024 Serum inorganic phos phate measurement Dr. Vinny Briones MD Work Phone: Start: 03-14-2024 PFIZER-BIONTECH COVI D-19 VACCINE AGE [...] Start: 03-13-2023 Digital breast tomosynthesis unilateral Mindi William LENS MAKER.JAVA LEAD ARCHITECT Work Phone: Start: 03-13-2023 Us breast uni real t surya with image limited Mindi [place] LENS MAKER.REBECCA Work Phone: Start: 02-09-2023 Screening mammograph y bi 2-view breast inc cad Mindi Thomas LENS MAKER.JAVA LEAD ARCHITECT Work Phone: Start: 11-10-2022 Radiologic exam ches t 2 views Yokasta Mcnulty PA-C Work Phone: Start: 10-06-2022 Radiologic exam ches t 2 views Yokasta Mcnulty PA-C Work Phone: Start: 09-11-2022 Radiologic exam ches t 2 views Catherine Fernández PA-C Work Phone: Start: 08-10-2022 Ecg routine ecg w/le ast 12 lds i&r only [facility] Provider Start: 01-13-2022 End: 01-13-2022 Mammography Mindi Nicholasf LENS MAKER.C [employer] INDUSTRIAL DEVELOPMENT CONSULTANT Work Phone: Start: 01-27-2021 Colonoscopy [facility] LENS MAKER.JAVA LEAD ARCHITECT Work Phone: Start: 10-15-2020 Adult depression scr eening assessment Mindi [place] LENS MAKER.JAVA LEAD ARCHITECT Work Phone: Start: 01-17-2018 Lipid 1996 panel - S connor or Plasma Mindi Huntleycalf LENS MAKER.JAVA LEAD ARCHITECT Work Phone: Plan of Treatment Date Care Activity Detail Author Start: 03-14-2029 Lipid panel Lipid Screening [facility] Start: 2029 RSV Vaccine (1 - 1-d ose 75+ series) RSV Vaccine (1 - 1-dose 75+ series) [facility] Start: 03-14-2027 Diabetes Screening Diabetes Screenin g [facility] Start: 01-27-2026 Colonoscopy COLONOSCOPY [facility] Start: 01-27-2026 COLORECTAL CANCER SCREENING COLORECTAL CANCER SCREENING [facility] Start: 01-27-2026 Screening for malign ant neoplasm of colon [facility] Start: 03-23-2025 End: 03-23-2025 Patient encounter procedure 03/23/2025 10:50 AM EDT Appointment Mammogram [address] [place] [address] [facility] Mammogram Comment on above: SUSHIL SCREENING [facility] Start: 03-21-2025 BP Controlled (<130/80) BP Controlle d (<130/80) [facility] Start: 03-21-2025 Screening for malign ant neoplasm of breast Mammogram Screening [facility] Start: 03-14-2025 Annual PCP Team Health Care Manager cas Disease Visit Annual PCP Team Chronic Disease Visit [facility] Start: 03-14-2025 Anxiety Screening Anxiety Screening [facility] Start: 03-14-2025 BP Controlled (<130/80) BP Controlle d (<130/80) [facility] Start: 03-14-2025 Complete blood count Hemoglobin/Demetrius tocrit [facility] Start: 03-14-2025 Creatinine measurement Serum Creatin ine [facility] Start: 03-14-2025 Depression Screening Depression Scre ening [facility] Start: 03-14-2025 Medicare Annual Well ness Visit Medicare Annual Wellness Visit [facility] Start: 03-14-2025 RSV Vaccine (1 - Ris k 60-74 years 1-dose series) RSV Vaccine (1 - Risk 60-74 years 1-dose series) [facility] Comment on above: Postponed from 02/25 (Insurance Coverage) Start: 03-14-2025 Urine microalbumin profile DTaP,Tdap,Td Vaccine (3 - Td or Tdap) [facility] Comment on above: Postponed from 12/31 (Insurance Coverage) Start: 03-13-2025 End: 03-13-2025 Patient encounter procedure [facility] Comment on above: Medicare wellness Start: 02-04-2025 ambulatory Ambulatory Facility:[facility] Start: 02-02-2025 Influenza vaccination Influenza Vacc ine (#1) [facility] Start: 01-09-2025 End: 01-09-2025 Evaluation of diagnostic study results [facility] Start: 01-04-2025 BP Controlled (<130/80) BP Controlle d (<130/80) [facility] Start: 09-19-2024 Complete blood count Hemoglobin/Demetrius tocrit [facility] Start: 09-12-2024 Covid-19 Vaccine () Covid-19 Vaccine () [facility] Start: 09-06-2024 Annual PCP Team Health Care Manager cas Disease Visit Annual PCP Team Chronic Disease Visit [facility] Start: 09-06-2024 BP Controlled (<130/80) BP Controlle d (<130/80) [facility] Start: 06-05-2024 Annual PCP Team Health Care Manager cas Disease Visit Annual PCP Team Chronic Disease Visit [facility] Start: 06-05-2024 BP Controlled (<130/80) BP Controlle d (<130/80) [facility] Start: 06-04-2024 Advance Directive Discussion Advance Directive Discussion [facility] Start: 03-22-2024 End: 06-21-2024 CBC W Auto Differential panel - Blood COMPLETE BLOOD COUNT AND DIFFERENTIAL Lab Routine Anemia, unspecified type Expected: 03/22/2024, Expires: 06/21/2024 [facility] Work Phone: Comment on above: Expected: 03/22/2024 , Expires: 06/21/2024 Start: 03-22-2024 End: 03-22-2024 ambulatory 03/22/2024 11:30 AM EDT Results Only [facility] [address] [place] [address] [facility] Start: 03-21-2024 End: 03-21-2024 Patient encounter procedure 03/21/2024 2:10 PM EDT Appointment Mammogram [address] [place] [address] Mammogram Start: 03-21-2024 End: 03-21-2024 Patient encounter procedure Mammogram Comment on above: mammogram Annual exam Start: 03-14-2024 End: 06-13-2024 CBC W Auto Differential panel - Blood [facility] Comment on above: Expected: 03/14/2024 , Expires: 06/13/2024 Start: 03-14-2024 End: 06-13-2024 Comprehensive metabolic 2000 panel - Serum or Plasma [facility] Work Phone: Comment on above: Expected: 03/14/2024 , Expires: 06/13/2024 Start: 03-14-2024 End: 06-13-2024 LIPID PANEL, NONFASTING [facility] Comment on above: Expected: 03/14/2024 , Expires: 06/13/2024 Start: 03-14-2024 End: 06-13-2024 Urinalysis complete panel - Urine [facility] Comment on above: Expected: 03/14/2024 , Expires: 06/13/2024 Start: 03-14-2024 End: 03-14-2024 Patient encounter procedure 03/14/2024 1:40 PM EDT Office Visit [facility] [address] [place] [id number] Vinny Briones MD [address] [place] [address] 6 month follow up [facility] Comment on above: 6 month follow up Start: 02-26-2024 BP Controlled (<130/80) BP Controlle d (<130/80) [facility] Start: 02-10-2024 Mammography Mammogram Screening [facility] Start: 02-10-2024 Screening for malign ant neoplasm of breast Mammogram Screening [facility] Start: 02-03-2024 Covid-19 Vaccine ( season) Covid-19 Vaccine ( season) [facility] Start: 02-03-2024 Covid-19 Vaccine ( season) Covid-19 Vaccine ( season) [facility] Start: 02-03-2024 Influenza vaccination Influenza Vacc ine (#1) [facility] Start: 01-01-2024 Urine microalbumin profile [facility] Start: 11-23-2023 End: 11-23-2023 ambulatory 11/23/2023 11:30 AM EDT Results Only [facility] [address] [place] [address] [place] [facility] Start: 10-10-2023 ANNUAL PCP TEAM POWDER MILL OPERATOR CAS DISEASE VISIT ANNUAL PCP TEAM CHRONIC DISEASE VISIT [facility] Start: 10-10-2023 BP CONTROLLED (<130/80) BP CONTROLLE D (<130/80) [facility] Start: 09-21-2023 End: 12-21-2023 Cobalamin (Vitamin B12) [Mass/volume] in Serum or Plasma VITAMIN B12 Lab Routine Anemia, unspecified type Expected: 09/21/2023, Expires: 12/21/2023 [facility] Work Phone: Comment on above: Expected: 09/21/2023 , Expires: 12/21/2023 Start: 09-21-2023 End: 12-21-2023 Iron and Iron binding capacity panel - Serum or Plasma IRON AND TIBC Lab Routine Anemia, unspecified type Expected: 09/21/2023, Expires: 12/21/2023 [facility] Work Phone: Comment on above: Expected: 09/21/2023 , Expires: 12/21/2023 Start: 09-17-2023 End: 12-17-2023 CBC W Auto Differential panel - Blood COMPLETE BLOOD COUNT AND DIFFERENTIAL Lab Routine Anemia, unspecified type Expected: 09/17/2023, Expires: 12/17/2023 [facility] Work Phone: Comment on above: Expected: 09/17/2023 , Expires: 12/17/2023 Start: 09-17-2023 End: 12-17-2023 Cobalamin (Vitamin B12) [Mass/volume] in Serum or Plasma VITAMIN B12 Lab Routine Anemia, unspecified type Expected: 09/17/2023, Expires: 12/17/2023 [facility] Work Phone: Comment on above: Expected: 09/17/2023 , Expires: 12/17/2023 Start: 09-17-2023 End: 12-17-2023 Erythropoietin (EPO) [Units/volume] in Serum or Plasma ERYTHROPOIETIN/EPO Lab Routine Anemia, unspecified type Expected: 09/17/2023, Expires: 12/17/2023 [facility] Work Phone: Comment on above: Expected: 09/17/2023 , Expires: 12/17/2023 Start: 09-17-2023 End: 12-17-2023 Ferritin [Mass/volume] in Serum or Plasma FERRITIN Lab Routine Anemia, unspecified type Expected: 09/17/2023, Expires: 12/17/2023 [facility] Work Phone: Comment on above: Expected: 09/17/2023 , Expires: 12/17/2023 Start: 09-17-2023 End: 12-17-2023 Folate [Mass/volume] in Serum or Plasma FOLATE, SERUM Lab Routine Anemia, unspecified type Expected: 09/17/2023, Expires: 12/17/2023 [facility] Work Phone: Comment on above: Expected: 09/17/2023 , Expires: 12/17/2023 Start: 09-17-2023 End: 12-17-2023 Iron and Iron binding capacity panel - Serum or Plasma IRON AND TIBC Lab Routine Anemia, unspecified type Expected: 09/17/2023, Expires: 12/17/2023 [facility] Work Phone: Comment on above: Expected: 09/17/2023 , Expires: 12/17/2023 Start: 09-16-2023 ANNUAL PCP TEAM POWDER MILL OPERATOR CAS DISEASE VISIT ANNUAL PCP TEAM CHRONIC DISEASE VISIT [facility] Start: 09-16-2023 BP CONTROLLED (<130/80) BP CONTROLLE D (<130/80) [facility] Start: 09-12-2023 BP CONTROLLED (<130/80) BP CONTROLLE D (<130/80) [facility] Start: 08-11-2023 ANNUAL PCP TEAM POWDER MILL OPERATOR CAS DISEASE VISIT ANNUAL PCP TEAM CHRONIC DISEASE VISIT [facility] Start: 08-11-2023 BP CONTROLLED (<130/80) BP CONTROLLE D (<130/80) [facility] Start: 08-02-2023 Patient discharge [facility] Start: 08-02-2023 End: 08-02-2023 Removal of urinary catheter [facility] Start: 08-02-2023 Oxygen therapy [facility] Start: 08-01-2023 Anes xtrprtl lower a bd ur tract renal don nfrct ANESTH KIDNEY/URETER SURG [facility] Start: 08-01-2023 Laparoscopy surg par tial nephrectomy LAPARO PARTIAL NEPHRECTOMY [facility] Start: 08-01-2023 Application of intermittent pneumatic compression device [facility] Start: 08-01-2023 Following clinical pathway protocol [facility] Start: 08-01-2023 Incentive spirometry [facility] Start: 08-01-2023 Admission procedure [facility] Start: 08-01-2023 Measuring intake and output [facility] Start: 08-01-2023 Patient education [facility] Start: 08-01-2023 Provision of activit y privileges [facility] Start: 08-01-2023 Taking patient vital signs [facility] Start: 08-01-2023 Vital signs measurements [facility] Start: 08-01-2023 End: 08-01-2023 [facility] Start: 08-01-2023 [facility] Start: 07-22-2023 Covid-19 Vaccine () Covid-19 Vaccine () [facility] Start: 06-04-2023 Advance Directive Discussion Advance Directive Discussion [facility] Start: 06-03-2023 ADVANCE DIRECTIVE DISCUSSION ADVANCE DIRECTIVE DISCUSSION [facility] Comment on above: Postponed from 06/04 (Declined at this time) Start: 05-29-2023 Patient discharge [facility] Start: 05-27-2023 [facility] Start: 05-26-2023 Chest PA and Lateral Chest PA and La teral [facility] Start: 05-26-2023 XR Chest PA and Lateral [facility] Start: 05-25-2023 [facility] Start: 05-25-2023 Respiratory secretio n precautions [facility] Start: 05-25-2023 Bacteria identified in Blood by Culture Blood Culture [facility] Start: 05-25-2023 Consultation [facility] Start: 05-25-2023 End: 05-25-2023 Following clinical pathway protocol [facility] Start: 05-25-2023 Bacterial nucleic ac id assay [facility] Start: 05-25-2023 Streptococcus pneumo niae antigen assay [facility] Start: 05-25-2023 End: 05-25-2023 Consultation [facility] Start: 05-25-2023 Elevation of head of bed [facility] Start: 05-25-2023 Patient education [facility] Start: 05-25-2023 Referral to service [facility] Start: 05-25-2023 End: 05-25-2023 [facility] Start: 05-25-2023 Admission procedure [facility] Start: 05-25-2023 Inhalation therapy procedure [facility] Start: 05-24-2023 End: 05-24-2023 Blood culture [facility] Start: 05-24-2023 [facility] Start: 03-04-2023 Screening for osteoporosis Bone Density Screening [facility] Start: 02-02-2023 Covid-19 Vaccine () Covid-19 Vaccine () [facility] Start: 02-02-2023 Influenza vaccination Influenza Vacc ine (#1) [facility] Start: 01-17-2023 Lipid 1996 panel - S connor or Plasma Lipid Screening [facility] Start: 01-17-2023 Lipid panel Lipid Screening [facility] Start: 01-17-2023 LIPID SCREEN LIPID SCREEN [facility] Start: 01-13-2023 BP CONTROLLED (<130/80) BP CONTROLLE D (<130/80) [facility] Start: 01-13-2023 Mammography MAMMOGRAM [facility] Start: 11-06-2022 End: 11-08-2023 Radiologic exam chest 2 views XR CHEST 2V FRONTAL/LAT Radiology Routine Bacterial pneumonia Expected: 11/06/2022, Expires: 11/08/2023 [facility] Work Phone: Comment on above: Expected: 11/06/2022 , Expires: 11/08/2023 Start: 09-11-2022 Covid-19 Vaccine (6 - Pfizer series) Covid-19 Vaccine (6 - Pfizer series) [facility] Start: 06-04-2022 ADVANCE DIRECTIVE DISCUSSION ADVANCE DIRECTIVE DISCUSSION [facility] Start: 06-04-2022 DEPRESSION ASSESSMENT DEPRESSION ASS ESSMENT [facility] Start: 04-21-2022 COVID-19 VACCINE (5 - Booster for Pfizer series) COVID-19 VACCINE (5 - Booster for Pfizer series) [facility] Start: 03-17-2022 Measurement of Borre maricruz burgdorferi antibody [facility] Work Phone: Start: 02-13-2022 COVID-19 VACCINE (5 - Booster for Pfizer series) COVID-19 VACCINE (5 - Booster for Pfizer series) [facility] Start: 02-02-2022 Influenza vaccination INFLUENZA (#1) [facility] Start: 10-15-2021 Adult depression screening assessment DEPRESSION SCREENING [facility] Start: 10-15-2021 ANNUAL PCP TEAM POWDER MILL OPERATOR CAS DISEASE VISIT ANNUAL PCP TEAM CHRONIC DISEASE VISIT [facility] Start: 06-04-2021 ADVANCE DIRECTIVE DISCUSSION ADVANCE DIRECTIVE DISCUSSION [facility] Start: 06-04-2021 DEPRESSION ASSESSMENT DEPRESSION ASS ESSMENT [facility] Start: 01-17-2021 DIABETES SCREEN DIABETES SCREEN [facility] Start: 01-17-2021 Diabetes Screening Diabetes Screenin g [facility] Start: 05-13-2020 PNEUMOCOCCAL: 65+ (2 - PPSV23 if available, else PCV20) PNEUMOCOCCAL: 65+ (2 - PPSV23 if available, else PCV20) [facility] Start: 05-13-2020 PNEUMOCOCCAL: 65+ (2 - PPSV23 or PCV20) PNEUMOCOCCAL: 65+ (2 - PPSV23 or PCV20) [facility] Start: 10-26-2019 Complete blood count Hemoglobin/Demetrius tocrit [facility] Start: 10-26-2019 HEMOGLOBIN/HEMATOCRIT HEMOGLOBIN/HEM ATOCRIT [facility] Start: 2019 BONE DENSITY BONE DENSITY [facility] Start: 12-07-2016 FECAL OCCULT BLOOD FECAL OCCULT BLOO D [facility] Start: 12-07-2016 Screening for malign ant neoplasm of colon Fecal Occult Blood [facility] Start: 05-17-2016 Creatinine measurement Serum Creatin ine [facility] Start: 05-17-2016 SERUM CREATININE SERUM CREATININE Cl [facility] Start: 2014 RSV Vaccine (1 - 1-d ose 60+ series) RSV Vaccine (1 - 1-dose 60+ series) [facility] Start: 2014 RSV Vaccine (1 - Ris k 60-74 years 1-dose series) RSV Vaccine (1 - Risk 60-74 years 1-dose series) [facility] Start: 02-26-2004 SHINGRIX VACCINE (1 of 2) SHINGRIX VACCINE (1 of 2) [facility] Start: 1999 COLOGUARD (FIT-DNA) COLOGUARD (FIT-D NA) [facility] Start: [address] COLONOGRAPHY [facility] Start: 1999 Screening for malign ant neoplasm of colon [facility] Start: 1999 SIGMOIDOSCOPY SIGMOIDOSCOPY [facility] Start: 1973 SHINGRIX VACCINE (1 of 2) SHINGRIX VACCINE (1 of 2) [facility] Start: 02-26-1972 Anxiety Screening Anxiety Screening [facility] Start: 02-26-1972 BP CONTROLLED (<130/80) BP CONTROLLE D (<130/80) [facility] Start: 02-26-1972 Depression Screening Depression Scre ening [facility] Start: 02-26-1972 HEPATITIS C SCREENING HEPATITIS C [facility] Start: 02-26-1972 Hepatitis C screening Hepatitis C [facility] Bacteria identified in Sputum by Respiratory culture [facility] End: 04-20-2025 DBT Breast - bilateral screening SUSHIL SCREENING W [facility] Radiology Routine Encounter for gynecological examination (general) (routine) without abnormal findings Encounter for screening mammogram for breast cancer 1 Occurrences starting 03/21/2024 until 04/20/2025 [facility] Work Phone: Comment on above: 1 Occurrences starti ng 03/21/2024 until 04/20/2025 End: 02-12-2023 Diagnostic mammography computer-aided detcj uni SUSHIL DIAGNOSTIC RT Radiology Routine Abnormal mammogram 1 Occurrences starting 01/13/2022 until 02/12/2023 [facility] Work Phone: Comment on above: 1 Occurrences starti ng 01/13/2022 until 02/12/2023 End: 08-11-2023 ECG COMPLETE ECG COMPLETE ECG Routine Medicare annual wellness visit, initial 1 Occurrences starting 08/10/2022 until 08/11/2023 [facility] Work Phone: Comment on above: 1 Occurrences starti ng 08/10/2022 until 08/11/2023 ECG COMPLETE ECG COMPLETE ECG 08/10/2022 5:14 PM EST [facility] Laboratory data interpretation [facility] Work Phone: Legionella pneumophi la Ag [Presence] in Urine [facility] End: 03-14-2024 SUSHIL DIAGNOSTIC RIGHT SUSHIL DIAGNOSTIC RIGHT Radiology Routine Abnormal mammogram 1 Occurrences starting 02/13/2023 until 03/14/2024 [facility] Work Phone: Comment on above: 1 Occurrences starti ng 02/13/2023 until 03/14/2024 Measurement of Borre maricruz burgdorferi antibody [facility] Work Phone: MG Breast Screening SUSHIL SCREENIN G Radiology Routine Encounter for screening mammogram for malignant neoplasm of breast 03/21/2024 8:42 AM EDT [facility] Work Phone: Patient Education ED Pneumonia (Adult) [facility] Work Phone: Patient referral [facility] Work Phone: End: 10-15-2023 Radiologic exam chest 2 views XR CHEST 2V FRONTAL/LAT Radiology Routine Bacterial pneumonia 1 Occurrences starting 09/15/2022 until 10/15/2023 [facility] Work Phone: Comment on above: 1 Occurrences starti ng 09/15/2022 until 10/15/2023 Respiratory pathogen s DNA and RNA panel - Respiratory specimen by EARLE with probe detection [facility] End: 02-12-2023 Screening mammography bi 2-view breast inc cad SUSHIL SCREENING Radiology Routine Encounter for screening mammogram for breast cancer 1 Occurrences starting 01/13/2022 until 02/12/2023 [facility] Work Phone: Comment on above: 1 Occurrences starti ng 01/13/2022 until 02/12/2023 End: 03-14-2024 US BREAST LTD RIGHT US BREAST LTD RIGHT Radiology Routine Abnormal mammogram 1 Occurrences starting 02/13/2023 until 03/14/2024 [facility] Work Phone: Comment on above: 1 Occurrences starti ng 02/13/2023 until 03/14/2024 End: 02-12-2023 Us breast uni real time with image limited US BREAST LTD RT Radiology Routine Abnormal mammogram 1 Occurrences starting 01/13/2022 until 02/12/2023 [facility] Work Phone: Comment on above: 1 Occurrences starti ng 01/13/2022 until 02/12/2023 [facility] Immunizations Immunization Date Immunization Notes Care Provider Karol coffman 03-14-2024 COVID-19 vaccine, ag e 12+ yr (PFIZER-BIONTECH COMIRNATY) Vinny Briones MD Work Phone: [facility] 03-14-2024 influenza, high dose seasonal, preservative-free Vinny Briones MD Work Phone: [facility] 03-14-2024 influenza virus vacc ine, unspecified formulation Vinny Briones MD Work Phone: [facility] 03-21-2023 influenza (aIIV4) vaccine, age 65+ yr, quadrivalent, PF (FLUAD QUAD) Vinny Briones MD Work Phone: [facility] 03-21-2023 influenza virus vacc ine, unspecified formulation Batsheva Hassan MA [facility] 03-18-2023 influenza, injectabl e, quadrivalent, preservative free [facility] 03-20-2022 influenza (HD-IIV4) vaccine, age 65+ yr, high dose, quadrivalent, PF (FLUZONE HIGH-DOSE) Vinny Briones MD Work Phone: [facility] 03-20-2022 influenza virus vacc ine, unspecified formulation Mindi Thomas APRN.JAVA LEAD ARCHITECT Work Phone: [facility] 12-03-2021 zoster vaccine recombinant Vinny Briones MD Work Phone: [facility] 08-20-2021 zoster vaccine recombinant Vinny Briones MD Work Phone: [facility] 03-05-2021 influenza (HD-IIV4) vaccine, age 65+ yr, high dose, quadrivalent, PF (FLUZONE HIGH-DOSE) Vinny Briones MD Work Phone: [facility] 08-26-2020 Covid (Pfizer) [facility] 08-05-2020 Covid (Pfizer) [facility] 05-31-2020 pneumococcal polysaccharide vaccine, 23 valent Vinny Briones MD Work Phone: [facility] 05-23-2020 pneumococcal polysaccharide vaccine, 23 valent Alicia Hamlin LENS MAKER.JAVA LEAD ARCHITECT Work Phone: [facility] Work Phone: 03-11-2020 influenza, injectabl e, quadrivalent, contains preservative Vinny Briones MD Work Phone: [facility] 03-05-2020 influenza (aIIV4) vaccine, age 65+ yr, quadrivalent, PF (FLUAD QUAD) Vinny Briones MD Work Phone: [facility] 05-13-2019 pneumococcal conjuga te vaccine, 13 valent Mindi [place]boro LENS MAKER.JAVA LEAD ARCHITECT Work Phone: [facility] 03-18-2019 influenza, high dose seasonal, preservative-free Mindi [place] LENS MAKER.JAVA LEAD ARCHITECT Work Phone: [facility] 03-18-2019 Seasonal trivalent influenza vaccine, adjuvanted, preservative free Vinny Briones MD Work Phone: [facility] 04-04-2018 influenza, injectabl e, quadrivalent, contains preservative Mindi William LENS MAKER.JAVA LEAD ARCHITECT Work Phone: [facility] 03-12-2018 influenza, injectabl e, quadrivalent, preservative free Vinny Briones MD Work Phone: [facility] 03-04-2018 influenza virus vacc ine, unspecified formulation Vinny Briones MD Work Phone: [facility] 04-04-2017 influenza virus vacc ine, unspecified formulation Vinny Briones MD Work Phone: [facility] 03-26-2016 influenza, injectabl e, quadrivalent, contains preservative Vinny Briones MD Work Phone: [facility] 03-26-2016 influenza, injectabl e, quadrivalent, preservative free Mindi [place] LENS MAKER.JAVA LEAD ARCHITECT Work Phone: [facility] Work Phone: 03-20-2015 influenza, injectabl e, quadrivalent, preservative free Mindi William LENS MAKER.[facility] Work Phone: [facility] 03-18-2015 influenza, injectabl e, quadrivalent, preservative free Vinny Briones MD Work Phone: [facility] 12-31-2013 tetanus toxoid, redu leticia diphtheria toxoid, and acellular pertussis vaccine, adsorbed Mindi [place] LENS MAKER.[facility] Work Phone: [facility] 03-23-2010 influenza virus vacc ine, unspecified formulation Mindi [place] LENS MAKER.[facility] Work Phone: [facility] Work Phone: 05-17-2009 novel influenza-H1N1 -09, all formulations Mindi [place] LENS MAKER.[facility] Work Phone: [facility] Work Phone: 04-21-2006 influenza virus vacc ine, unspecified formulation Mindi [place] LENS MAKER.[facility] Work Phone: [facility] Work Phone: 03-04-2004 influenza virus vacc ine, whole virus Mindi William LENS MAKER.[facility] Work Phone: [facility] Work Phone: 02-14-2003 diphtheria and tetan us toxoids, adsorbed for pediatric use Mindi William LENS MAKER.[facility] Work Phone: [facility] Work Phone: Payers Date Payer Category Payer Self-pay [id number] 2019 Medicare [id number] 2019 Private Health Insurance MMO MED ICARE SUPPLEMENT [id number] 2019 Unknown MMO MMO MEDICARE SUPPLEMENT [id number] 2019-Present [phone] [address] [place] [address] Indemnity [id number] 2019 Medicare [id number] 2014 Unknown [id number] Unknown [id number] Unknown [id number] Unknown [id number] Unknown [id number] Unknown [id number] Social History Date Type Detail Facility Start: 12-04-2018 End: 07-23-2023 Tobacco smoking status NHIS Unknown if ever smoked [facility] Start: 12-04-2018 Non-smoker [facility] Start: 1955 Sex Assigned At Female [facility] Start: 03-30-2011 End: 07-23-2023 Tobacco smoking status NHIS Never smoked tobacco [facility] Start: 03-30-2011 Tobacco use and exposure Smoke less tobacco non-user [facility] Start: 01-13-2022 End: 03-21-2024 Alcohol intake Current non-drinker of alcohol (finding) [facility] Start: 01-01-2020 End: 08-03-2022 History SDOH Social Connections Phone 5 [facility] Start: 01-01-2020 End: 08-03-2022 History SDOH Social Connections Restoration 3 [facility] Start: 01-01-2020 End: 08-03-2022 History SDOH Social Connections Membership 1 [facility] Start: 01-01-2020 End: 08-03-2022 History SDOH Social Connections Living 4 [facility] Start: 01-01-2020 History SDOH Physica l Activity MPS 12 [facility] Start: 01-01-2020 End: 08-03-2022 History SDOH Transport Med 2 [facility] Start: 01-01-2020 Education 13 [facility] Start: 01-03-2022 End: 01-17-2022 Exposure to SARS-CoV-2 (event) Not sure [facility] Work Phone: Start: 08-03-2022 History SDOH Alcohol Std Drinks 0 [facility] Start: 08-03-2022 End: 10-09-2022 History of Social function [facility] Start: 08-03-2022 End: 10-09-2022 Social connection and isolation panel [facility] Do you belong to any clubs or organizations such as mandaeism groups, unions, fraternal or athletic groups, or school groups? Yes [facility] Are you now , , , , never or living with a partner? [facility] How often to you hav e a drink containing alcohol? Never [facility] How many standard dr inks containing alcohol do you have on a typical day? Patient does not drink [facility] Do you feel stress - tense, restless, nervous, or anxious, or unable to sleep at night because your mind is troubled all the time - these days [OSQ] Not at all [facility] (I/We) worried wheth er (my/our) food would run out before (I/we) got money to buy more. Never true [facility] In the past 12 month s, was there a time when you were not able to pay the mortgage or rent on time? No [facility] Start: 10-10-2020 Gender identity Identifies as female gender (finding) [facility] NEGATED: Highlighted row [facility] Medical Equipment Procedure Code Equipment Code Equipment Origin al Text Equipment Identifier Dates Robot-assisted partial nephrectomy Collagen haemostatic agent, non-antimicrobial ()[id number] FDA Start: 08-01-2023 Robot-assisted partial nephrectomy Suture clasp, bioabsorbable ()[id number] FDA Start: 08-01-2023 Robot-assisted partial nephrectomy Plant polysaccharide haemostatic agent, bioabsorbable ()[id number] FDA Start: 08-01-2023 Robot-assisted partial nephrectomy Ligation clip, synthetic polymer, non-bioabsorbable ()[id number] FDA Start: 08-01-2023 Robot-assisted partial nephrectomy Ligation clip, synthetic polymer, non-bioabsorbable ()[id number] FDA Start: 08-01-2023 Robot-assisted partial nephrectomy Ligation clip, synthetic polymer, non-bioabsorbable ()[id number] FDA Start: 08-01-2023 TUBE, EAR PARASOL.040 FDA [...] Assessment Result Facility 08-02-2023 Functional status Chair [facility] Work Phone: 05-29-2023 Functional status Up ad tony [facility] Work Phone: 12-17-2014 Are you deaf, or do you have serious difficulty hearing No 12/17/2014 1:46 PM Genet Castro LPN No [facility] 12-17-2014 Are you blind, or do you have serious difficulty seeing, even when wearing glasses No 12/17/2014 1:46 PM Genet Castro LPN No [facility] 12-17-2014 Do you have serious difficulty walking or climbing stairs No 12/17/2014 1:46 PM Genet Castro LPN No [facility] 12-17-2014 Do you have difficul ty dressing or bathing No 12/17/2014 1:46 PM Genet Castro LPN No [facility] 12-17-2014 Because of a physica l, mental, or emotional condition, do you have difficulty doing errands alone such as visiting a physician's office or shopping No 12/17/2014 1:46 PM EDT Genet Sen LPN No [facility] Mental Status Date Assessment Result Facility 08-02-2023 Cognitive function Level Of Cons ciousness Awake;Alert;Appropriate;Fol lows Commands [facility] Work Phone: 08-01-2023 Cognitive function Voice/Name [facility] Work Phone: 05-29-2023 Cognitive function Voice/Name [facility] Work Phone: 12-17-2014 Because of a physica l, mental, or emotional condition, do you have serious difficulty concentrating, remembering, or making decisions No 12/17/2014 1:46 PM EDT Genet Sen LPN No [facility] Clinical Notes 01-27-2021 to 01-09-2025 Anni Antonio LPN - 01/02/2025 1:08 PM Robyn Cruz MA - 12/26/2024 10:29 AM Batsheva Dominguez MA - 11/19/2024 3:49 PM Anni Baron LPN - 11/11/2024 9:44 AM EDTPatient Instructions Note Date & Type Note Facility 01-09-2025 Note HNO ID: [id number] Author: ROBYN SEN MA Service: ? Author Type: Varnish Remover Type: Progress Notes Filed: 01/09/2025 09:59 Note Text: OV note, Dr. Longoria. Robyn Sen MA Scan on 01/08/2025 4:51 PM by Kofi Lilly PANicoletteC: Dr. Longoria [facility] 01-02-2025 Note HNO ID: [id number] Author: ANNI ANTONIO LPN Service: ? Author Type: LICENSED NURSE Type: Progress Notes Filed: 01/02/2025 13:09 Note Text: Scan on 01/02/2025 9:32 AM by ProviderKofi PA-C: Consultation - Ophthalmology [facility] 01-02-2025 History of Presen t illness Narrative Scan on 01/02/2025 9:32 AM by Provider, PRASHANTH Kirby: Consultation - Ophthalmology documented in this encounter [facility] 12-28-2024 Radiology Diagnostic study note [facility] Imaging Services [address] [place], [place] [address] CT Abd/Pelvis W/WO Contrast MR#: [id number] Acct: [id number] Name: RICHELLE CARDOZO Rep #: [id number] : 1955 F 69 From: Kecia Fleming MD PCP: Dr. Vinny Briones MD Status: REG CLI Study:CT Abd/Pelvis W/WO Contrast Date of Exa m: 12/25/24 Exam# [id number] Ordering Dr: Farhan Longoria MD PROCEDURE: CT ABD/PELVIS W/WO CONTRAST 12/25/2024 REASON FOR EXAM: MALIGNANT NEOPLASM OF RIGHT KIDNEY, EXCEPT RENAL PELVIS TECHNIQUE: CT ABD/PELVIS W/WO CONTRAST Coronal and Sagittal reconstruction series were provided. CONTRAST: Isovue 370 VOLUME: 70 mL One or more dose reduction techniques were used (e.g., Automated exposure control, adjustment of the mA and/or kV according to patient size, use of iterative reconstruction technique. RADIATION DOSE SUMMARY: CTDlvol: 50 mGy DLP: 2266 mGycm COMPARISON: 01/11/2024 FINDINGS: Under aerated lung bases. Interval improvement at the right base with resolution of rounded atelectasis. Multiple noncalcified lung nodules, measuring up to 6 mm, nonspecific. Elective chest CT is recommended. Upper limits of normal heart size. Dilated ascending aorta, 4.1 cm maximum cross-section on partial visualization. Small liver cyst. Status post cholecystectomy. Unremarkable pancreas, spleen, adrenal glands. On the left, there is a stable 1.6 cm staghorn calculus. There is a 1.9 by 1.9 x 1.8 cm exophytic low-density mass, series 3, image 33, previously measured 1.5 x 1.5 x 1.6 cm. Small interval enlargement. On the right, there is a history of a renal mass which is no longer seen. There are multiple simple cysts redemonstrated. Multiple small right renal calcifications. No hydronephrosis or ureteral stone. Unremarkable bladder. Normal uterus and ovaries. No retroperitoneal or pelvic adenopathy. No free air. Small hiatal hernia. Nonobstructed bowel. Normal appendix. Diverticulosis. No acute large bowel findings. Lumbar spine degeneration. Old left-sided rib fracture. No acute abdominal wall findings. CT/CT Abd/Pelvis W/WO Contrast IMPRESSION: Enlarging low-density mass, off the anterior left kidney, suspicious for primaryrenal cell carcinoma, slow growing. Continued follow up imaging as clinically determined. Reading Location: [place] [address] CC: Dr. Vinny Briones MD; Dr. Garret Longoria MD ~ Slumber Room Attendant: Signed [facility] 12-26-2024 Note HNO ID: [id number] Author: ROBYN SEN MA Service: ? Author Type: Varnish Remover Type: Progress Notes Filed: 12/29/2024 08:15 Note Text: View External Labs - Creatinine Fing [ID [id number]] Imaging: View External Imaging - CT Abd Pelv [ID [id number]] [facility] 12-26-2024 History of Presen t illness Narrative View External Labs - Creatinine Fing [ID [id number]] documented in this encounter [facility] 11-19-2024 Note HNO ID: [id number] Author: BATSHEVA HASSAN MA Service: ? Author Type: Varnish Remover Type: Progress Notes Filed: 11/19/2024 15:50 Note Text: Scan on 11/18/2024 10:47 AM by Kofi Lilly PA-C: Consultation - Nephrology/Renal Batsheva Hassan MA' [facility] 11-19-2024 History of Presen t illness Narrative Scan on 11/18/2024 10:47 AM by Kofi Lilly PA-C: Consultation - Nephrology/Renal Batsheva Hassan MA' documented in this encounter [facility] 11-11-2024 Note HNO ID: [id number] Author: ANNI ANTONIO LPN Service: ? Author Type: LICENSED NURSE Type: Progress Notes Filed: 11/11/2024 09:45 Note Text: Scan on 11/10/2024 2:05 PM by ProviderKofi PA-C: Chemistry Scan on 11/10/2024 1:36 PM by ProviderKofi PA-C: Hematology [facility] 11-11-2024 History of Presen t illness Narrative Scan on 11/10/2024 2:05 PM by Kofi Lilly PA-C: Chemistry Scan on 11/10/2024 1:36 PM by ProviderKofi PA-C: Hematology documented in this encounter [facility] 03-21-2024 History of Presen t [...] PATIENT PRESENTS WITH AN IMPLANTABLE OR ATTACHED ELASTIC TAPE INSERTER: No RADIOLOGY DEPARTMENT: Mammography PERIPHERAL IV DATA: Not applicable SIGNED BY: RT Lucien(Jennie) March 21, 2024 9:24 AM documented in this encounter [facility] 03-21-2024 Note HNO ID: [id number] Author: STEINER, SIMI, RT(R) Service: ? Author Type: Technologist Type: Progress [...] PATIENT PRESENTS WITH AN IMPLANTABLE OR ATTACHED ELASTIC TAPE INSERTER: No RADIOLOGY DEPARTMENT: Mammography PERIPHERAL IV DATA: Not applicable SIGNED BY: RT Lucien(R) March 21, 2024 9:24 AM [facility] 03-21-2024 Note HNO ID: [id number] Author: MINDI THOMAS APRN.JAVA LEAD ARCHITECT Service: ? Author Type: Nurse Practitioner Type: Progress Notes Filed: 03/21/2024 09:18 Note Text: Patient declined agents' records clerk. Aleida is a 69 year old who presents for an annual gynecologic exam without complaints. Postmenopausal: Yes HRT use: No. 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 As applicable, any other physici (more content not included)... [facility] 03-21-2024 History of Presen t illness Narrative Patient declined agents' records clerk. Aleida is a 69 year old who presents for an annual gynecologic exam without complaints. Postmenopausal: Yes HRT use: No. 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 As applicable, any other physician, advance practice provider, medical student, or other health professional student that will be observing or involved in the sensitive examination for educational or training purposes was discussed with the Patient or Authorized Horse Exerciser. The Patient or Authorized Horse Exerciser has agreed to proceed with the sensitive [...] external genitalia normal, normal Bartholin's glands, urethra, Willits's glands, no vulvar lesions, no cervical lesions, [...] Mindi Thomas APRN.REBECCA documented in this encounter [facility] 03-15-2024 Telephone encounter Note Patient calls and notified of results and providers instructions. Patient verbalizes understanding and thankful for the good news. Radha Hanks RN [facility] 03-15-2024 Miscellaneous Notes Patient calls and notified of results and providers instructions. Patient verbalizes understanding and thankful for the good news. Radha Hanks RN Let patient know her anemia is stable and better then several years ago. Her kidney functions are much better then several years ago. Her lipid panel and UA were good documented in this encounter [facility] 03-15-2024 Telephone encounter Note Let patient know her anemia is stable and better then several years ago. Her kidney functions are much better then several years ago. Her lipid panel and UA were good [facility] 03-14-2024 History of Presen t [...] 105/70 Pulse 76 Ht 165.7 cm (5' 5.25") Wt 64.6 kg (142 lb 6.4 oz) [...] kidney disease) stage 3, GFR 30-59 ml/min ([facility]) 2013 Diverticulosis of colon 08/04/2005 [...] 105/70 Pulse 76 Ht 165.7 cm (5' 5.25") Wt 64.6 kg (142 lb 6.4 oz) [...] HIGH DOSE, TRIVALENT (FLUZONE HIGH-DOSE): given - [employer] COVID-19 VACCINE AGE 12+ YR ([place]): given [...] which included preparing to see the patient, bgih-dj-alve patient care, completing clinical documentation, performing a medically appropriate examination, counseling and educating the patient/family/caregiver and ordering medications, tests, or procedures. Vinny Briones MD documented in this encounter [facility] 03-14-2024 Note HNO ID: [id number] Author: VINNY BRIONES MD Service: ? 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 [facility] 03-14-2024 Instructions Vinny Briones MD - 03/14/2024 [...] review all the medicines you take, even qqgh-odw-eistntz medicines. As you get older, the way [...] certain medical conditions. documented in this encounter [facility] 01-14-2024 Note HNO ID: [id number] Author: BATSHEVA HASSAN MA Service: ? Author Type: Varnish Remover Type: Progress Notes Filed: 01/14/2024 14:28 Note Text: Scan on 01/11/2024 9:40 AM by Kofi Lilly PA-C: CT Scan Batsheva Hassan MA [facility] 01-14-2024 History of Presen t illness Narrative Scan on 01/11/2024 9:40 AM by Kofi Lilly PA-C: CT Scan Batsheva Hassan MA documented in this encounter [facility] 01-10-2024 History of Presen t illness Narrative Scan on 01/10/2024 8:24 AM by Provider, PRASHANTH Kirby: Miscellaneous Lab documented in this encounter [facility] 01-05-2024 History of Presen t illness Narrative This note was created using [email or web address]. Subjective Richelle Cardozo is a 68 year [...] if symptoms persist or worsen. Mindi Thomas APRN.JAVA LEAD ARCHITECT documented in this encounter [facility] 12-31-2023 History of Presen t illness Narrative Scan on 12/28/2023 10:46 AM by ProviderKofi PA-C: Consultation - documented in this encounter [facility] 12-31-2023 History of Presen t illness Narrative Scan on 12/28/2023 2:49 PM by ProviderKofi PA-C: Consultation - Ophthalmology documented in this encounter [facility] 12-11-2023 History of Presen t illness Narrative Scan on 12/07/2023 11:38 AM by ProviderKofi PA-C: Consultation - Cardiology Batsheva Hassan MA documented in this encounter [facility] 11-28-2023 Telephone encounter Note Patient was notified Aria Mcdaniel MA [facility] 11-28-2023 Miscellaneous Notes Patient was notified Aria Mcdaniel MA Let patient know B12 and iron labs were ok. documented in this encounter [facility] 11-27-2023 Telephone encounter Note Let patient know B12 and iron labs were ok. [facility] 11-20-2023 History of Presen t illness Narrative Scan on 11/20/2023 12:44 PM by ProviderKofi PA-C: Consultation - Nephrology/Renal documented in this encounter [facility] 11-13-2023 History of Presen t illness Narrative Scan on 11/12/2023 5:35 PM by ProviderKofi PA-C: Chemistry Batsheva Hassan MA documented in this encounter [facility] 11-01-2023 History of Presen t illness Narrative Scan on 10/30/2023 3:45 PM by ProviderKofi PA-C: Echo documented in this encounter [facility] 09-21-2023 Miscellaneous Notes Patient calling [...] Yokasta Mcnulty PA-C documented in this encounter [facility] 09-17-2023 Miscellaneous Notes Call placed [...] they were low. Please review and advise, Radha Hanks RN documented in this encounter [facility] 09-07-2023 History of Presen t [...] kidney disease) stage 3, GFR 30-59 ml/min ([facility]) 2013 Diverticulosis of colon 08/04/2005 [...] back from cardiology, encouraged patient to call [facility] office for further evaluation. 2. Renal mass - ICD9: 593.9, ICD10: N28.89 -Resolved. Follow up scheduled with Dr. Longoria in November. Alicia Hamlin APRN.JAVA LEAD ARCHITECT documented in this encounter [facility] 09-03-2023 History of Presen t illness Narrative Scan on 09/03/2023 5:07 PM by ProviderKofi PA-C: Hematology documented in this encounter [facility] 08-21-2023 History of Presen t illness Narrative Scan on 08/21/2023 8:21 AM by ProviderKofi PA-C: Consultation - documented in this encounter [facility] 08-02-2023 Consult note Note Date/Time August 02, 2023 10:04am [facility] Medical Records Department [address] [place] [address] Counseling Note - Pharmacy 08/02/23 1001 MR#: [id number] Acct: [id number] Name: RICHELLE CARDOZO Rep #:[id number] : 1955 68 From: Claire Zarate PCP: Dr. Vinny Briones MD Status:REG SD Y Location: [place] [address] Pharmacy [facility] has performed discharge medication [...] of their dischargemedications. Patient counseled by pharmacy data analyst, Rony. Medications at Discharge Home Medications calcium [...] Signature (if applicable): Date CC: ~ Signed [facility] Work Phone: 1(615) 431-576302-29-2024 Progress note Author Garret Longoria [facility] August 02, 2023 7:05am Note Date/Time August 02, 2023 7:05am [facility] Medical Records Department [address] [place] [address] Progress Note - Urology 08/02/23704 MR#: [id number] Acct: [id number] Name: RICHELLE CARDOZO BETO Rep #:[id number] : 1955 68 From: Garret Longoria MD PCP: Dr. Vinny Briones MD Status:[facility] Location: [place] [address] Subjective Subjective 68-year-old female status post right [...] Intake and Output for Last 24 Hours 02/27/24 02/28/24 02/29/24 23:59 23:59 23:59 Intake Total 1189.67 / 1189.67 750 / 750 Output Total 575 / 575 900 / 900 Balance 614.67 / 614.67 -150 / -150 Lab / Micro Data 07/24/23 16:35 07/24/23 16:35 08/02/23 0705 <Electronically signed by Garret Longoria MD> Cosigner Signature (if applicable): CC: ~ Signed [facility] Work Phone: 1(143) 294-237102-28-2024 Discharge summary Author Garret Longoria [facility] August 01, 2023 9:33am Note Date/Time August 01, 2023 9:33am [facility] Medical Records Department [address] [place] [address] Instructions for Home/Discharge Instructions 08/01/23932 MR#: [id number] Acct: [id number] Name: RICHELLE CARDOZO Rep #:[id number] : 1955 68 From: Garret Longoria MD PCP: Dr. Vinny Briones MD Status:REG [facility] Discharge Instructions Diet Discharge Diet: No restrictions Activity Discharge Activity: Return to Normal Activity and May Not Drive (while taking narcotic pain medications.) Dressing / Incision Call your doctor if you observe: Fever of 101 or Higher Follow Up Care Please Follow Up With: Garret Longoria MD When: Call [phone] for an appointment Test Results: Test results [...] Order can be placed): Home, Self Care 08/01/23932<Electronically signed by Garret Longoria MD>Garret Longoria MD CC: Dr. Steve Baxter MD; Dr. Vinny Briones MD ~ Signed [facility] Work Phone: 1(586) 410-521702-28-2024 History and physical note Author Garret Longoria [facility] August 01, 2023 9:33am Note Date/Time August 01, 2023 9:33am [facility] Medical Records Department [address] [place] [address] History & Physical Exam 08/01/23932 MR#: [id number] Acct: [id number] Name: RICHELLE CARDOZO Rep #:[id number] : 1955 68 From: Garret Longoria MD PCP: Dr. Vinny Briones MD Status:[facility] Location: [place] [address] HPI - General General Date of Service: 08/01/23 Chief Complaint: Solid right renal mass HPI Narrative RICHELLE CARDOZO, is a 68 F who presents for a laparoscopic robotic assisted right partial nephrectomy for a solid mass concerning for renal cell carcinoma [facility] Medical History (Updated 08/01/23 @ 09:29 by [...] History (Updated 06/14/23 @ 10:53 by Noemi Rain RN) Smoking Status: Never smoker alcohol intake: [...] Briones MD; Dr. Garret Longoria MD~ Signed [facility] Work Phone: 1(638) 351-773502-28-2024 History of Present illness Narrative* Anni Antonio LPN - 08/01/2023 9:47 AM EST Scan on 08/01/2023 9:43 AM by Kofi Lilly PA-C: Scan on 08/01/2023 9:40 AM by Kofi Lilly PA-C: Discharge Summary Scan on 08/01/2023 9:38 AM by Kofi Lilly PA-C [facility]2024 History of Present illness Narrative* Anni Antonio LPN - 07/25/2023 9:04 AM EST Scan on 07/24/2023 5:09 PM by Kofi Lilly PA-C: Hematology Scan on 07/24/2023 5:34 PM by Provider, External, PRASHANTH: Chemistry [facility] Discharge summary Author Sandi Arias [facility] May 29, 2023 1:24pm Note Date/Time May 29, 2023 1:24pm [facility] Medical Records Department [address] [place] [address] Instructions for Home/Discharge Instructions 05/29/23 1324 MR#: [id number] Acct: [id number] Name: RICHELLE CARDOZO Rep #:[id number] : 1955 68 From: Sandi Arias MD [...] Order can be placed): Home, Self Care 05/29/234<Electronically signed by Sandi Arias MD>Sandi Arias MD CC: KORTNEY Head; Dr. Darius Zepeda MD; Dr. Darius Garcia DO; Dr. Vinny Briones MD; Dr. Ryley Garner MD; Dr. Garret Longoria MD; Dr. Steven Francisco MD; Dr. Jason Marques MD; Dr. Benedicto Mccain MD; Dr. Dontae Handy MD; Dr. Brent Augustin MD; Dr. Derek Obrien DO ~ Signed [facility] Work Phone: 1([phone]) 253-206112-26-2023 Discharge summary Author [facility] May 29, 2023 2:40pm Note Date/Time May 29, 2023 1:24pm [facility] Medical Records Department [address] [place] [address] Discharge Summary 05/29/234 MR#: [id number] Acct: [id number] Name: RICHELLE CARDOZO Rep #:[id number] : 1955 68 From: Sandi Arias MD PCP: Dr. Vinny Briones MD Status:ADM IN Location: [facility] [id number] Providers Date of Admission: 05/25/23 Date of [...] 05/25/23 04:15 Consult: Oncology/Hematology Routine Consulting Provider: [facility] Reason for Consult: ~2.2 cm renal mass with possible metastases with ~1 centimeter mass in T11 EMERGENT Consult: No Notified: Yes Date Notified: 05/25/23 Time Notified: 11:12 Method of Notification: phone 05/25/23 12:53 Consult: Urology Routine Consulting Provider: Garret Longoria Reason for Consult: right renal mass 2.2 cm EMERGENT Consult: No MD Notified: Yes Date Notified: 05/25/23 Time Notified: [...] Protocol: Document 05/25/23 11:05 (Rec: 05/25/23 11:05 [id number]) Nutrition Malnutrition Evidence of Malnutrition Exists Yes [...] Active Staff] - Within 2 Weeks (Dr. Von'soffice is closed today for the holiday. I have left a message for the office to call the patient. If the office does not call by the end of the week please callthe office. [phone].) Steven Francisco MD [Med Staff - Active Staff] - 06/06/23 10:00 am Disposition Disposition (needs filled in before D/C Order can be placed): Home, Self Care Charges/Coding Visit Charges Inpatient E&M: 09819 Disch Hosp >30min 05/29/23 1440 <Electronically signed by Sandi Arias MD> Cosigner Signature (if applicable): CC: Dr. Vinny Briones MD; Dr. Sandi Arias MD~ Signed [facility] Work Phone: 1(125) 996-911312-25-2023 Progress note Author [facility] May 28, 2023 12:02pm Note Date/Time May 28, 2023 11:50[facility] Medical Records Department [facility] [place] [address] Progress Note 05/28/23 1147 MR#: [id number] Acct: [id number] Name: RICHELLE CARDOZO BETO Rep #:[id number] : 1955 68 From: Sandi Arias MD PCP: Dr. Vinny Briones MD Status:ADM IN Location: [place] [address]1 Subjective Subjective Patient seen and examined. She [...] Protocol: Document 05/25/23 11:05 (Rec: 05/25/23 11:05 [id number]) Nutrition Malnutrition Evidence of Malnutrition Exists Yes [...] RDW Coeff of Casey 15.6 H, Plt [id number], MPV 9.4, Neut % (Auto) Not Reportable, [...] rate improves. Charges/Coding Visit Charges Inpatient E&M: 15612 Subs Hosp L2 05/28/23 1202 <Electronically signed by Sandi Arias MD> Sandi Arias MD Cosigner Signature (if applicable): CC: ~ Signed [facility] Work Phone: 1(732) 901-224912-24-2023 Progress note Author Sandi Arias [facility] May 27, 2023 1:56pm Note Date/Time May 27, 2023 10:16[facility] Medical Records Department [address] [place] [address] Progress Note 05/27/23 1014 MR#: [id number] Acct: [id number] Name: RICHELLE CARDOZO Rep #:[id number] : 1955 68 From: Sandi Arias MD PCP: Dr. Vinny Briones MD Status:ADM IN Location: [place] [address]1 Subjective Subjective Patient seen and examined. She [...] Freq: Status: Active Protocol: Document 05/25/23 11:05 AG (Rec: 05/25/23 11:05 [id number]) Nutrition Malnutrition Evidence of Malnutrition Exists Yes [...] prophylaxis; lovenox. Charges/Coding Visit Charges Inpatient E&M: 25445 Subs Hosp L2 05/27/23 1356 <Electronically signed by Sandi Arias MD> Sandi Arias MD Cosigner Signature (if applicable): CC: ~ Signed [facility] Work Phone: 1(636) 631-736812-23-2023 Progress note Author Sandi [facility] May 26, 2023 2:15pm Note Date/Time May 26, 2023 12:51pm [facility] Medical Records Department [address] [place] [address] Progress Note 05/26/23 1246 MR#: [id number] Acct: [id number] Name: RICHELLE CARDOZO BETO Rep #:[id number] : 1955 68 From: Sandi Arias MD PCP: Dr. Vinny Briones MD Status:ADM IN Location: [place] [address]1 Subjective Subjective Patient seen and examined. She [...] Protocol: Document 05/25/23 11:05 (Rec: 05/25/23 11:05 [id number]) Nutrition Malnutrition Evidence of Malnutrition Exists Yes [...] Clarity Clear, Urine pH 7.0, Ur Specific [place] 1.005, Urine Protein 15 H, Urine Glucose [...] 77.1 H, Lymph % (Auto) 8.6 L, [place] % (Auto) 9.5, Eos % (Auto) 0.3, [...] prophylaxis; lovenox. Charges/Coding Visit Charges Inpatient E&M: 51569 Subs Hosp L2 05/26/23 9112 <Electronically signed by Sandi Arias MD> Sandi Arias MD Cosigner Signature (if applicable): CC: ~ Signed [facility] Work Phone: 1(284) 897-896712-22-2023 Progress note Author Jason Marques [facility] May 25, 2023 4:49pm Note Date/Time May 25, 2023 10:33am [facility] Medical Records Department [address] [place] [address] Progress Note - Hospitalist 05/25/23 1032 MR#: [id number] Acct: [id number] Name: RICHELLE CARDOZO Rep #:[id number] : 1955 68 From: Jason Matos PCP: Dr. Vinny Briones MD Status:[facility] Reason for Visit Reason for Visit: Diagnoses [...] Count 234,MPV 10.2, Immature Gran % (Auto) ECO INDUSTRIAL DEVELOPMENT CONSULTANT, Neut % (Auto) ECO INDUSTRIAL DEVELOPMENT CONSULTANT, Lymph % (Auto) ECO INDUSTRIAL DEVELOPMENT CONSULTANT, [place] %(Auto) ECO INDUSTRIAL DEVELOPMENT CONSULTANT, Eos % (Auto) ECO INDUSTRIAL DEVELOPMENT CONSULTANT, Baso % (Auto) ECO INDUSTRIAL DEVELOPMENT CONSULTANT, Absolute Neuts (auto) 10.4 H, Absolute Lymphs (auto) 0.78 L, Neutrophils % (Manual) 70, Band Neutrophils % 10 H, Lymphocytes % (Manual) 6 L, Monocytes % (Manual) 14 H, Nucleated RBC % ECO INDUSTRIAL DEVELOPMENT CONSULTANT, Diff Path Review October, D- Dimer Quant (PE/DVT) 2.40 H*, Sodium [...] 20:31 EST Reading Location ID and State: [facility] / [place] Tel [phone], Service support , Chest CTA 05/24/23 23:59 [...] Count 234,MPV 10.2, Immature Gran % (Auto) ECO INDUSTRIAL DEVELOPMENT CONSULTANT, Neut % (Auto) ECO INDUSTRIAL DEVELOPMENT CONSULTANT, Lymph % (Auto) ECO INDUSTRIAL DEVELOPMENT CONSULTANT, [place] %(Auto) ECO INDUSTRIAL DEVELOPMENT CONSULTANT, Eos % (Auto) ECO INDUSTRIAL DEVELOPMENT CONSULTANT, Baso % (Auto) ECO INDUSTRIAL DEVELOPMENT CONSULTANT, Absolute Neuts (auto) 10.4 H, Absolute Lymphs (auto) 0.78 L, Neutrophils % (Manual) 70, Band Neutrophils % 10 H, Lymphocytes % (Manual) 6 L, Monocytes % (Manual) 14 H, Nucleated RBC % ECO INDUSTRIAL DEVELOPMENT CONSULTANT, Diff Path Review Reviewed, D- Dimer Quant [...] - Final Charges/Coding Visit Charges Inpatient E&M: 38976 Subs Hosp L3 05/25/23 4039 <Electronically signed by Jason Marques MD> Cosigner Signature (if applicable): CC: ~ Signed [facility] Work Phone: 1(403) 676-800512-22-2023 Consult note Author Garret Longoria [facility] May 25, 2023 2:27pm Note Date/Time May 25, 2023 2:27pm [facility] Medical Records Department [address] [place] [address] Consultation - Urology 05/25/23 1426 MR#: [id number] Acct: [id number] Name: RICHELLE CARDOZO Rep #:[id number] : 1955 68 From: Garret Longoria MD PCP: Dr. Vinny Briones MD Status:ADM IN Location: [facility] VO034-0 HPI Consult Data Date of Consult: 05/25/23 [...] and she can follow-up as an outpatient [facility] Medical History (Updated 05/25/23 @ 13:28 by Carlotta Head ECO INDUSTRIAL DEVELOPMENT CONSULTANT, ECO INDUSTRIAL DEVELOPMENT CONSULTANT-C) Bone lesion GERD (gastroesophageal reflux disease) Hemorrhoid [...] Protocol: Document 05/25/23 11:05 (Rec: 05/25/23 11:05 [id number]) Nutrition Malnutrition Evidence of Malnutrition Exists Yes [...] Count 234,MPV 10.2, Immature Gran % (Auto) ECO INDUSTRIAL DEVELOPMENT CONSULTANT, Neut % (Auto) ECO INDUSTRIAL DEVELOPMENT CONSULTANT, Lymph % (Auto) ECO INDUSTRIAL DEVELOPMENT CONSULTANT, [place] %(Auto) ECO INDUSTRIAL DEVELOPMENT CONSULTANT, Eos % (Auto) ECO INDUSTRIAL DEVELOPMENT CONSULTANT, Baso % (Auto) ECO INDUSTRIAL DEVELOPMENT CONSULTANT, Absolute Neuts (auto) 10.4 H, Absolute Lymphs (auto) 0.78 L, Neutrophils % (Manual) 70, Band Neutrophils % 10 H, Lymphocytes % (Manual) 6 L, Monocytes % (Manual) 14 H, Nucleated RBC % ECO INDUSTRIAL DEVELOPMENT CONSULTANT, Diff Path Review Reviewed, D- Dimer Quant [...] Longoria MD> Cosigner Signature (if applicable): CC: ECO INDUSTRIAL DEVELOPMENT CONSULTANT-Renato Head; Dr. Darius Zepeda MD; Dr. Darius Garcia DO; Dr. Vinny Briones MD; Dr. Ryley Garner MD; Dr. Garret Longoria MD; Dr. Steven Francisco MD; Dr. Benedicto Mccain MD; Dr. Dontae Handy MD; Dr. Brent Augustin MD; Dr. Derek Obrien DO~ Signed [facility] Work Phone: 1(684) 694-541512-22-2023 Consult note Author Carlotta Adilene [facility] May 25, 2023 1:56pm Note Date/Time May 25, 2023 12:40pm [facility] [address] [place] [address] Consultation - Oncology IP 05/25/23 1231 MR#: [id number] Acct: [id number] Name: RICHELLE CARDOZO BETO Rep #:[id number] : 1955 68 From: Carlotta SHEETS PCP: Dr. Vinny Briones MD Status:ADM IN Location: [place] [address] Assessment & Plan Assessment/Plan (1) Right renal [...] the out patient setting. Follow up with [facility] upon discharge. Patient was provided [facility] contact information. HPI Consult Data Date of Service:: 05/25/23 PCP / Referring Provider: Dr. Vinny Briones MD Attending: Dr. Jason Marques MD Chief Complaint Chief Complaint: Renal mass History of Present Illness History of Present Illness: Ms. Cardozo is a 68 year old woman with a PMH significant for Sjorgen's, GERD, HTN,osteoarthritis and hyperlipidemia, who reported to [facility] ED on 05/24/23 with c/o SOB [...] up to date (screenings were performed at [facility]). Notably she was called back for [place] [...] met with urology. Advanced Directives Power of Public Area Attendant: No Living Will[facility] History (Updated 05/25/23 @ 13:28 by Carlotta Head ECO INDUSTRIAL DEVELOPMENT CONSULTANT, ECO INDUSTRIAL DEVELOPMENT CONSULTANT-C) Bone lesion GERD (gastroesophageal reflux disease) Hemorrhoid [...] Count 234,MPV 10.2, Immature Gran % (Auto) ECO INDUSTRIAL DEVELOPMENT CONSULTANT, Neut % (Auto) ECO INDUSTRIAL DEVELOPMENT CONSULTANT, Lymph % (Auto) ECO INDUSTRIAL DEVELOPMENT CONSULTANT, [place] %(Auto) ECO INDUSTRIAL DEVELOPMENT CONSULTANT, Eos % (Auto) ECO INDUSTRIAL DEVELOPMENT CONSULTANT, Baso % (Auto) ECO INDUSTRIAL DEVELOPMENT CONSULTANT, Absolute Neuts (auto) 10.4 H, Absolute Lymphs (auto) 0.78 L, Neutrophils % (Manual) 70, Band Neutrophils % 10 H, Lymphocytes % (Manual) 6 L, Monocytes % (Manual) 14 H, Nucleated RBC % ECO INDUSTRIAL DEVELOPMENT CONSULTANT, Diff Path Review October foll, D- Dimer [...] , 05/25/23 1356 <Electronically signed by Carlotta SHEETS> CC: KORTNEY Head; Dr. Darius Zepeda MD; Dr. Darius Garcia DO; Dr. Vinny Briones MD; Dr. Ryley Garner MD; Dr. Garret Longoria MD; Dr. Steven Francisco MD; Dr. Benedicto Mccain MD; Dr. Dontae Handy MD; Dr. Brent Augustin MD; Dr. Derek Obrien DO ~ Signed [facility] Work Phone: 1(521) 891-261012-22-2023 Discharge summary Author Steve Woods [facility] May 25, 2023 8:02am Note Date/Time May 24, 2023 10:27pm [facility] Medical Records Department [address] [place] [address] Emergency Department Summary 05/24/23 MR#: [id number] Acct: [id number] Name: RICHELLE CARDOZO Rep #:[id number] : 1955 68 From: Steve Art PCP: Dr. Vinny Briones MD Status:ADM IN Location: [place]-1 HPI History of Present Illness Chief Complaint: [...] Recent immobilization, Recent surgery or Recent travel [facility] Medical History (Updated 05/25/23 @ 02:58 by [...] 234 MPV 10.2 Immature Gran % (Auto) ECO INDUSTRIAL DEVELOPMENT CONSULTANT Neut % (Auto) ECO INDUSTRIAL DEVELOPMENT CONSULTANT Lymph % (Auto) ECO INDUSTRIAL DEVELOPMENT CONSULTANT [place] % (Auto) ECO INDUSTRIAL DEVELOPMENT CONSULTANT Eos % (Auto) ECO INDUSTRIAL DEVELOPMENT CONSULTANT Baso % (Auto) ECO INDUSTRIAL DEVELOPMENT CONSULTANT Absolute Neuts (auto) 10.4 H Absolute Lymphs (auto) 0.78 L Neutrophils % (Manual) 70 Band Neutrophils % 10 H Lymphocytes % (Manual) 6 L Monocytes % (Manual) 14 H Nucleated RBC % ECO INDUSTRIAL DEVELOPMENT CONSULTANT Diff Path Review May foll D-Dimer Quant [...] sinus rhythm with a rate of 94. WA interval is normal at 158 ms. QRS [...] admission. He will admit the patient to [facility]. Patient understood and was agreeable with the plan. All questions were answered. Discharge Plan Dx/Rx/DC Orders Clinical Impression: Hypoxia, Pneumonia, Right renal mass Disposition Disposition: Acute Care Hospital [facility] What to do if you have Problems For any increased pain, shortness of breath, bleeding, nausea or vomiting, chestpain, or any unexpected problems, contact your Primary Care Provider. Call [facility] ([phone]) or report to the closest Emergency Room. Call 911 if necessary. 05/25/23 0802 <Electronically signed by Steve Woods DO> Cosigner Signature (if applicable): CC: Dr. Vinny Briones MD ~ Signed [facility] Work Phone: 1(220) 917-230612-22-2023 History and physical note Author Darius Plummer [facility] May 25, 2023 6:11am Note Date/Time May 25, 2023 3:01am [facility] Medical Records Department [address] [place] [id number] H&P Exam - Hospitalist 05/25/23 0254 MR#: [id number] Acct: [id number] Name: RICHELLE CARDOZO BETO Rep #:[id number] : 1955 68 From: Darius Weir DO PCP: Dr. Vinny Briones MD Status:ADM IN Location: [facility] [id number] HPI - General General Date of Admission: [...] cancer in her sister who presents to [facility] ER complaining of shortness of breath. [...] expected to be greater than 48 hours. [facility] Medical History (Updated 05/25/23 @ 06:11 by [...] Count 234,MPV 10.2, Immature Gran % (Auto) ECO INDUSTRIAL DEVELOPMENT CONSULTANT, Neut % (Auto) ECO INDUSTRIAL DEVELOPMENT CONSULTANT, Lymph % (Auto) ECO INDUSTRIAL DEVELOPMENT CONSULTANT, [place] %(Auto) ECO INDUSTRIAL DEVELOPMENT CONSULTANT, Eos % (Auto) ECO INDUSTRIAL DEVELOPMENT CONSULTANT, Baso % (Auto) ECO INDUSTRIAL DEVELOPMENT CONSULTANT, Absolute Neuts (auto) 10.4 H, Absolute Lymphs (auto) 0.78 L, Neutrophils % (Manual) 70, Band Neutrophils % 10 H, Lymphocytes % (Manual) 6 L, Monocytes % (Manual) 14 H, Nucleated RBC % ECO INDUSTRIAL DEVELOPMENT CONSULTANT, Diff Path Review October, D- Dimer Quant (PE/DVT) 2.40 H*, Sodium [...] and sensitivity data. Give Tylenol prn for tern-tw-[id number] level 1-5/10 pain or fever. Give Morphine [...] 55 minutes. Charges/Coding Visit Charges Inpatient E&M: 81392 Init Hosp L2 05/25/23 0611 <Electronically signed by Darius Garcia DO> Cosigner Signature (if applicable): CC: Dr. Darius Garcia DO; Dr. Vinny Briones MD~ Signed [facility] Work Phone: 1(692) 966-676612-22-2023 History and physical note Author Darius Plummer [facility] May 25, 2023 6:11am Note Date/Time May 25, 2023 3:01am [facility] Medical Records Department [address] [place] [id number] H&P Exam - Hospitalist 05/25/23 0254 MR#: [id number] Acct: [id number] Name: RICHELLE CARDOZO BETO Rep #:[id number] : 1955 68 From: Darius Weir DO PCP: Dr. Vinny Briones MD Status:ADM IN Location: [facility] [id number] HPI - General General Date of Admission: [...] cancer in her sister who presents to [facility] ER complaining of shortness of breath. [...] expected to be greater than 48 hours. [facility] Medical History (Updated 05/25/23 @ 06:11 by [...] Count 234,MPV 10.2, Immature Gran % (Auto) ECO INDUSTRIAL DEVELOPMENT CONSULTANT, Neut % (Auto) ECO INDUSTRIAL DEVELOPMENT CONSULTANT, Lymph % (Auto) ECO INDUSTRIAL DEVELOPMENT CONSULTANT, [place] %(Auto) ECO INDUSTRIAL DEVELOPMENT CONSULTANT, Eos % (Auto) ECO INDUSTRIAL DEVELOPMENT CONSULTANT, Baso % (Auto) ECO INDUSTRIAL DEVELOPMENT CONSULTANT, Absolute Neuts (auto) 10.4 H, Absolute Lymphs (auto) 0.78 L, Neutrophils % (Manual) 70, Band Neutrophils % 10 H, Lymphocytes % (Manual) 6 L, Monocytes % (Manual) 14 H, Nucleated RBC % ECO INDUSTRIAL DEVELOPMENT CONSULTANT, Diff Path Review October, D- Dimer Quant (PE/DVT) 2.40 H*, Sodium [...] and sensitivity data. Give Tylenol prn for jlvm-ux-sbgniybc level 1-5/10 pain or fever. Give Morphine [...] 55 minutes. Charges/Coding Visit Charges Inpatient E&M: 49238 Init Hosp L2 05/25/23 0611 <Electronically signed by Darius Garcia DO> Cosigner Signature (if applicable): CC: Dr. Darius Garcia DO; Dr. Vinny Briones MD~ Signed [facility] Work Phone: 1(614) 763-279010-10-2023 History of Present illness Narrative* Jacki Price [...] Not applicable SIGNED BY: Jacki Price RDMS T March 13, 2023 1:40 PM documented in this [facility]10-10-2023 History of Present illness Narrative* Emilie Cordon Mammo Tech - 03/13/2023 11:00 AM EDT Radiology Service [...] 13, 2023 10:56 AM documented in this [facility]09-25-2023 History of Present illness Narrative* Anni Antonio LPN - 02/26/2023 12:23 PM EDT Scan on 02/26/2023 7:37 AM by ProviderKofi PA-C: Miscellaneous Lab documented in this [facility]09-24-2023 History of Present illness Narrative* Catherine Fernández PA-C - 2023 11:17 AM EDT This note was created using NoteWriter. Subjective Richelle Cardozo is a 68 year [...] kidney disease) stage 3, GFR 30-59 ml/min ([facility]) 2013 Diverticulosis of colon 08/04/2005 [...] worsen. Catherine Fernández PA-C documented in this encounter[facility]09[facility]24-[facility]23 Instructions* Patient Instructions* Catherine Fernández PA-C - 2023 10:54 AM EDT Flonase Plain mucinex otc If not improving in 3-5 days see pcp. documented in this encounterWexner [facility] Center09-11-2023 Miscellaneous Notes* Letter - Coordinator, Mammography - 02/12/2023 5:30 PM EDT February 13, 2023 PID: [id number] Richelle Cardozo [address] [place] [address] Dear Ms. Cardozo, Your recent breast imaging exam on 02/09/2023 showed a possible finding that requires additional imaging studies for a complete evaluation. Most such findings are probably benign (not cancer). If you have a healthcare provider who ordered/prescribed your screening mammogram: Please call [phone] or EXT: [phone] to schedule an appointment for your additional [...] and reports are kept on file at [facility] as part of your permanent medical record, and are available for your continuing care. Thank you for allowing us to help in meeting your health care needs. Sincerely, Dr. Ramirez Interpreting Radiologist [facility] (Additional imaging) documented in this encounterWexner Medical Center09-08-2023 History of Present illness Narrative* Monika Nguyen Mammo Tech - 02/09/2023 10:10 AM EDT [...] DATA: Not applicable SIGNED BY: Monika Nguyen [employer] Denia February 09, 2023 9:59 AM documented in this encounterWexner [facility] Center06-29-2023 History of Present illness Narrative* Anni Antonio LPN - 11/30/2022 7:04 AM EDT Scan on 11/28/2022 11:31 AM by External Provider, PA-C: Consultation - Nephrology/Renal documented in this encounterWexner Medical Center06-23-2023 History of Present illness Narrative* Batsheva Hassan MA - 11/24/2022 10:38 AM EDT Scan on 11/22/2022 8:10 AM by External Provider, PA-C: Chemistry Scan on 11/22/2022 7:35 AM by External Provider, PANicoletteC: Hematology Batsheva Hassan MA documented in this encounterWexner Medical Center06-09-2023 History of Present illness Narrative* [...] 10, 2022 12:13 PM documented in this encounterWexner Medical Center05-08-2023 Instructions* Patient Instructions* Yokasta Mcnulty PA-C - 10/09/2022 1:38 PM EDT Repeat CXR in about 1 month. Return if symptoms change or worsen. documented in this encounterWexner Medical Center05-08-2023 History of Present illness Narrative* [...] kidney disease) stage 3, GFR 30-59 ml/min ([facility]) 2013 Diverticulosis of colon 08/04/2005 [...] scan. Yokasta Mcnulty PA-C documented in this encounterWexner Medical Center05-08-2023 Miscellaneous Notes* Telephone Encounter - [...] Thanks. Yokasta Mcnulty PA-C documented in this encounterWexner Medical Center05-05-2023 History of Present illness Narrative* Alexandra Zaragoza RT(Jennie) - 10/06/2022 11:20 AM EDT Radiology Service [...] 06, 2022 11:09 AM documented in this encounterWexner Medical Center04-14-2023 History of Present illness Narrative* [...] kidney disease) stage 3, GFR 30-59 ml/min ([facility]) 2013 Diverticulosis of colon 08/04/2005 [...] FRONTAL/LAT Yokasta Mcnulty PA-C documented in this encounterWexner Medical Center04-10-2023 History of Present illness Narrative* Catherine Fernández PA-C - 09/11/2022 11:38 AM EDT This note was created using Stabil[employer] Orthopaedicsriter. Luli Cardozo is a 67 year old female. HPI Patient presents with a chief complaint of cough and chest congestion for 10 days. She has had fevers off and on. Temp here 99.6. She has used Robitussin ohbk-gwi-rybuezw without relief. Her grandkids were sick recently [...] kidney disease) stage 3, GFR 30-59 ml/min ([facility]) 2013 Diverticulosis of colon 08/04/2005 [...] FRONTAL/LAT Catherine Fernández PA-C documented in this encounterWexner Medical Center04-10-2023 History of Present illness Narrative* [...] 11, 2022 10:51 AM documented in this encounterWexner Medical Center04-06-2023 History of Present illness Narrative* Batsheva Hassan MA - 09/07/2022 1:07 PM EDT Scan on 09/02/2022 12:53 AM by External Provider: Consultation - Orthopedics Batsheva Hassan MA documented in this encounterWexner Medical Center03-09-2023 Instructions* Patient Instructions* Alicia Hamlin APRN.CNP - 08/10/2022 4:49 PM EST Will notify patient of labs ordered once results received from biomedical engineering technologist Continue current medications Continue follow up with specialists as scheduled Follow up in 1 year documented in this encounterWexner Medical Center03-09-2023 History of Present illness Narrative* Alicia Hamlin APRN.CNP - 08/10/2022 4:27 PM EST Richelle Cardozo is a 67 year old female here for a Medicare Initial Annual Wellness Visit Health Risk Assessment In general, health is: Very good Concerns with balance: Not at all Concerns with teeth or dentures: Not at all Concerns with sexual function: Not at all [place] anxious, stressed, angry, irritable, lonely, isolated, or [...] kidney disease) stage 3, GFR 30-59 ml/min ([facility]) 2013 Diverticulosis of colon 08/04/2005 [...] year Alicia Hamlin APRN.CNP documented in this encounterWexner Medical Center02-09-2023 Miscellaneous Notes* Telephone Encounter - Batsheva Hassan MA - 07/13/2022 12:18 PM EST Patient is scheduled. Batsheva Hassan MA * Telephone Encounter - Batsheva Hassan MA - 07/13/2022 8:32 AM EST Left message for patient to contact office. Batshvea Hassan MA * Telephone Encounter - Vinny [...] exam. Batsheva Hassan MA documented in this encounterWexner Medical Center02-06-2023 History of Present illness Narrative* Arpita Head MA - 07/10/2022 2:04 PM EST [employer] NAVIGATION OUTREACH Action/ Spoke to Aleida pimentel to schedule medicare [...] 10, 2022 2:04 PM documented in this encounterWexner Medical Center09-12-2022 Miscellaneous Notes* Telephone Encounter - [...] prescription for nausea can be sent to [facility]? Please review and advise, Shea Rain RN documented in this encounterWexner Medical Center08-12-2022 Miscellaneous Notes* Letter - Mammography Coordinator - 01/13/2022 8:27 AM EDT January 13, 2022 PID: [id number] Richelle Cardozo [address] [place] [address] Dear Ms. Cardozo, Your recent breast imaging exam on 01/13/2022 showed a possible finding that requires additional imaging studies for a complete evaluation. Most such findings are probably benign (not cancer). If you have a healthcare provider who ordered/prescribed your screening mammogram: Please call [phone] or [phone]: [phone] to schedule an appointment for your additional [...] and reports are kept on file at [facility] as part of your permanent medical record, and are available for your continuing care. Thank you for allowing us to help in meeting your health care needs. Sincerely, Dr. Wagner Interpreting Radiologist [facility] (Additional imaging) documented in this encounterWexner Medical Center08-12-2022 History of Present illness Narrative* Simi Steiner RT(R) - 01/13/2022 7:50 AM EDT Radiology Service [...] 13, 2022 7:30 AM documented in this encounterWexner Medical Center08-12-2022 History of Present illness Narrative* Mindi Thomas APRN.JAVA LEAD ARCHITECT - 01/13/2022 7:00 AM EDT Aleida is a 66 year old who presents for an annual gynecologic exam without complaints. Postmenopausal: Yes HRT use: No. 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 Comments: Sexual Activity: Not [...] kidney disease) stage 3, GFR 30-59 ml/min ([facility]) 2013 Diverticulosis of colon 08/04/2005 [...] and current medication updated:Yes EXAM: Ht 5' 5.25" (1.66m) Wt 153 lb 9.6 oz (69.7kg) [...] external genitalia normal, normal Bartholin's glands, urethra, Willits's glands, no vulvar lesions, no cervical lesions, [...] up to date- done in 2020 by Journeyman Pl[employer] 2) Follow up one year or sooner as needed Mindi Thomas APRN.REBECCA documented in this encounterWexner Medical Center08-26-2021 History of Past illness Narrative* Problem Noted Date Resolved Date Polyp of colon 01/27/2021 01/27/2021 Encounter for gynecological examination without abnormal finding 10/21/2015 12/02/2015 Overview: See[facility]. Family history of colon cancer [...] of this encounter (statuses as of 01/13/2022) [facility] of Past illness Narrative* Problem Noted Date Resolved Date Polyp of colon 01/27/2021 01/27/2021 Encounter for gynecological examination without abnormal finding 10/21/2015 12/02/2015 Overview: Sees [facility]. Family history of colon cancer 01/07/2015 [...] of this encounter (statuses as of 01/13/2022) [facility] Past illness Narrative* Problem Noted Date Resolved Date Polyp of colon 01/27/2021 01/27/2021 Encounter for gynecological examination without abnormal finding 10/21/2015 12/02/2015 Overview: [facility]. Family history of colon cancer 01/07/2015 [...] of this encounter (statuses as of 01/14/2022) [facility] illness Narrative* [...] of this encounter (statuses as of 01/17/2022) [facility] illness Narrative* [...] of this encounter (statuses as of 02/13/2022) [facility] illness Narrative* Problem Noted Date Resolved Date Polyp of colon 01/27/2021 01/27/2021 Encounter for gynecological examination without abnormal finding 10/21/2015 [facility]02/2015 [facility] Family history of colon cancer 01/07/2015 [...] of this encounter (statuses as of 04/05/2022) [facility] Narrative* Problem Noted Date Resolved Date Polyp of colon 01/27/2021 01/27/2021 Encounter for gynecological examination without abnormal finding 10/21/2015 12/02/2015 Overview: [facility]. Family history of colon cancer 01/07/2015 [...] of this encounter (statuses as of 07/11/2022) [facility] Narrative* [...] of this encounter (statuses as of 07/13/2022) [facility] illness Narrative* [...] of this encounter (statuses as of 08/11/2022) [facility] Narrative* Problem Noted Date Resolved Date Polyp of colon 01/27/2021 01/27/2021 Encounter for gynecological examination without abnormal finding 10/21/2015 12/02/2015 Overview: Sees [facility]. Family history of colon cancer 01/07/2015 [...] of this encounter (statuses as of 09/08/2022) [facility] Narrative* Problem Noted Date Resolved Date Polyp of colon 01/27/2021 01/27/2021 Encounter for gynecological examination without abnormal finding 10/21/2015 12/02/2015 Overview: [facility]. Family history of colon cancer 01/07/2015 [...] of this encounter (statuses as of 09/11/2022) [facility] Narrative* [...] of this encounter (statuses as of 09/15/2022) [facility] Narrative* [...] of this encounter (statuses as of 10/09/2022) [facility] Narrative* Problem Noted Date Resolved Date Polyp of colon 01/27/2021 01/27/2021 Encounter for gynecological examination without abnormal finding 10/21/2015 12/02/2015 Overview: Sees [facility]. Family history of colon cancer [...] of this encounter (statuses as of 10/09/2022) [facility] Narrative* [...] of this encounter (statuses as of 11/25/2022) [facility] Narrative* [...] of this encounter (statuses as of 11/30/2022) [facility] Narrative* Problem Noted Date Diagnosed Date Resolved Date Polyp of colon 01/27/2021 01/27/2021 Encounter for gynecological examination without abnormal finding 10/21/2015 12/02/2015 Overview: [facility]. Family history of colon cancer 01/07/2015 [...] of this encounter (statuses as of 02/13/2023) [facility] Narrative* Problem Noted Date Diagnosed Date Resolved Date Polyp of colon 01/27/2021 01/27/2021 Encounter for gynecological examination without abnormal finding 10/21/2015 12/02/2015 Overview: Sees [facility]. Family history of colon cancer [...] of this encounter (statuses as of 02/13/2023) [facility] Narrative* [...] of this encounter (statuses as of 02/14/2023) [facility] Narrative* [...] of this encounter (statuses as of 2023) [facility] Narrative* Problem Noted Date Diagnosed Date Resolved Date Polyp of colon 01/27/2021 01/27/2021 Encounter for gynecological examination without abnormal finding 10/21/2015 12/02/2015 Overview: [facility]. Family history of colon cancer [...] of this encounter (statuses as of 02/26/2023) [facility] Narrative* Problem Noted Date Diagnosed Date Resolved Date Polyp of colon 01/27/2021 01/27/2021 Encounter for gynecological examination without abnormal finding 10/21/2015 12/02/2015 [facility] Family history of colon cancer 01/07/2015 [...] of this encounter (statuses as of 04/08/2023) [facility] Narrative* [...] of this encounter (statuses as of 04/08/2023) [facility] Narrative* [...] of this encounter (statuses as of 04/08/2023) [facility] Narrative* Problem Noted Date Diagnosed Date Resolved Date Polyp of colon 01/27/2021 01/27/2021 Encounter for gynecological examination without abnormal finding 10/21/2015 12/02/2015 [facility] Family history of colon cancer [...] of this encounter (statuses as of 07/25/2023) [facility] Narrative* Problem Noted Date Diagnosed Date Resolved Date Polyp of colon 01/27/2021 01/27/2021 Encounter for gynecological examination without abnormal finding 10/21/2015 12/02/2015 Overview: [facility]. Family history of colon cancer 01/07/2015 [...] of this encounter (statuses as of 08/01/2023) [facility] Narrative* [...] of this encounter (statuses as of 08/21/2023) [facility] Narrative* Problem Noted Date Diagnosed Date Resolved Date Polyp of colon 01/27/2021 01/27/2021 Encounter for gynecological examination without abnormal finding 10/21/2015 12/02/2015 Overview: [facility]. Family history of colon cancer [...] of this encounter (statuses as of 09/04/2023) [facility] Narrative* Problem Noted Date Diagnosed Date Resolved Date Polyp of colon 01/27/2021 01/27/2021 Encounter for gynecological examination without abnormal finding 10/21/2015 12/02/2015 Overview: [facility]. Family history of colon cancer 01/07/2015 [...] of this encounter (statuses as of 09/18/2023) [facility] Narrative* [...] of this encounter (statuses as of 09/21/2023) [facility] Narrative* Problem Noted Date Diagnosed Date Resolved Date Polyp of colon 01/27/2021 01/27/2021 Encounter for gynecological examination without abnormal finding 10/21/2015 12/02/2015 Overview: [facility]. Family history of colon cancer 01/07/2015 [...] of this encounter (statuses as of 09/07/2023) [facility]Evaludel[facility] noteNo assessment information availableWSycamore Medical Center Work Phone: Evaluation note* Diagnosis Encounter for gynecological examination (general) (routine) without abnormal findings- Primary Encounter for screening mammogram for breast cancer [facility] Diagnosis Abnormal mammogram- Primary Abnormal mammogram, unspecified [facility]* Diagnosis Encounter for screening mammogram for breast cancer documented in this encounter [facility] note* Diagnosis Medicare annual wellness visit, initial- Primary Routine general medical examination at a health care facility Essential hypertension Unspecified essential hypertension Mixed hyperlipidemia Anemia of chronic disease Anemia of other chronic disease Stage 3a chronic kidney disease (HCC) Celiac disease Well adult exam Routine general medical examination at a [facility] facility documented in this encounter [facility] note* Diagnosis Bacterial pneumonia- Primary Bacterial pneumonia, unspecified documented in this encounter [facility] note* Diagnosis Bacterial pneumonia- Primary Bacterial pneumonia, unspecified documented in this encounter [facility] note* Diagnosis Bacterial pneumonia- Primary Bacterial pneumonia, unspecified documented in this encounter [facility] note* Diagnosis Bacterial pneumonia- Primary Bacterial pneumonia, unspecified documented in this encounter [facility] note* Diagnosis Abnormal mammogram- Primary Abnormal mammogram, unspecified documented in this encounter [facility] note* Diagnosis Acute pansinusitis, recurrence not specified- Primary documented in this encounter [facility] note* Diagnosis Encounter for screening mammogram for breast cancer documented in this encounter [facility] note* Diagnosis Abnormal mammogram Abnormal mammogram, unspecified documented in this encounter [facility] note* Diagnosis Abnormal mammogram Abnormal mammogram, unspecified documented in this encounter [facility] note* Diagnosis Onset Date Resolution Status GABRIELLE (acute kidney injury) [place] Hypoxia acute Pneumonia acute Right renal mass acute [facility] Work Phone: Evaluation note* Diagnosis Onset Date Resolution Status GABRIELLE (acute kidney injury) [place] Bone lesion acute Hypoxia acute Pneumonia acute Right renal mass acute [facility] Work Phone: Evaluation note* Diagnosis Onset Date Resolution Status Right renal mass acute GABRIELLE (acute kidney injury) re solved Hypoxia resolved Pneumonia resolved Abnormal echocardiogram acut e Essential hypertension acute Right renal mass acute [facility] Work Phone: Evaluation note* Diagnosis Anemia, unspecified type- Primary Medication management Encounter for long-term (current) use of other medications Malignant neoplasm of right kidney, except renal pelvis (HCC) Malignant neoplasm of kidney, except pelvis documented in this encounter [facility] note* Diagnosis Anemia, unspecified type- Primary documented in this encounter [facility] note* Diagnosis Bacterial sinusitis- Primary Unspecified sinusitis (chronic) [facility] Diagnosis Bacterial pneumonia Bacterial pneumonia, unspecified [facility] Diagnosis Acute cough documented in this encounter [facility] note* Diagnosis Encounter for Medicare annual wellness [...] of other medications [facility] Diagnosis Encounter for gynecological examination (general) (routine) without abnormal findings- Primary Encounter for screening mammogram for breast cancer [facility] Diagnosis Encounter for screening mammogram for malignant neoplasm of breast Other screening mammogram [facility] Diagnosis Abnormal EKG- Primary Nonspecific abnormal electrocardiogram (ECG) (EKG) Renal mass Unspecified disorder of kidney and ureter Stage 3a chronic kidney disease (HCC) [facility] Diagnosis Onset Date Resolution Status Admit Date Abnormal echocardiogram acute A ugust 2024 11:15am Essential hypertension acute Au megan 2024 11:15am Mixed hyperlipidemia acute Augu st 2024 11:15am Renal mass acute January 09 11:15am Right renal mass acute January 092024 11:15am [facility] Work Phone: Hospital Discharge instructions Additional Instructions [facility]: Reason for referral (narrative)* Diagnostic Procedure Only (Routine) - Pending Review Specialty Diagnoses / Procedures Referred By Gal trevino Referred To Contact [facility] Diagnoses Encounter for screening mammogram for breast cancer Procedures SUSHIL SCREENING SCREENING MAMMOGRAPHY BI 2-VIEW BREAST INC CAD Midni Thomas, LENS MAKER.JAVA LEAD ARCHITECT [address] [place] [address] [facility] [address] [place] [address] Referral ID Status Reason Start Date Expiration Date Visits Requested Visits Authorized [id number] Pending Review Auto-Generat ed Referral 01/13/2022 02/12/2023 1 1 [facility] for referral (narrative)* Diagnostic Procedure Only (Routine) - Authorized Specialty Diagnoses / Procedures Referred By Contac t Referred To Contact [facility] Diagnoses Abnormal mammogram Procedures US BREAST LTD RT US BREAST UNI REAL TIME WITH IMAGE LIMITED Mindi Thomas APRN.CNP [address] [place] [address] [facility] [address] [place] [address] Referral ID Status Reason Start Date Expiration Date Visits Requested Visits Authorized [id number] Authorized Auto-Generat ed Referral 01/13/2022 02/12/2023 1 1 * Diagnostic Procedure Only (Routine) - Authorized Specialty Diagnoses / Procedures Referred By Gal t Referred To Contact [facility] Diagnoses Abnormal mammogram Procedures SUSHIL DIAGNOSTIC RT DIAGNOSTIC MAMMOGRAPHY COMPUTER-AIDED DETCJ UNI Mindi Thomas APRN.JAVA LEAD ARCHITECT [address] [place] [address] [facility] [address] [place] [address] Referral ID Status Reason Start Date Expiration Date Visits Requested Visits Authorized [id number] Authorized Auto-Generat ed Referral 01/13/2022 02/12/2023 1 1 [facility] for referral (narrative)* Diagnostic Procedure Only (Routine) - Closed Specialty Diagnoses / Procedures Referred By Contac t Referred To Contact [facility] Diagnoses Encounter for screening mammogram for breast cancer Procedures SUSHIL SCREENING SCREENING MAMMOGRAPHY BI 2-VIEW BREAST INC CAD Mindi Thomas APRN.JAVA LEAD ARCHITECT [address] [place] [address] [facility] [address] [place] [address] Referral ID Status Reason Start Date Expiration Date V isits Requested Visits Authorized [id number] Closed Auto-Generate d Referral 01/04/2021 02/03/2022 1 1 [facility] for referral (narrative)* Outpatient Procedure (Routine) - Pending Review Specialty Diagnoses / Procedures Referred By Gal trevino Referred To Contact [facility] [place] Diagnoses Medicare annual wellness visit, initial Procedures ECG COMPLETE ECG ROUTINE ECG W/LEAST 12 LDS W/I&R Alicia Hamlin APRN.JAVA LEAD ARCHITECT [address] [place] [address] [facility] [place] [address] [place] [address] Referral ID Status Reason Start Date Expiration Date Visits Requested Visits Authorized [id number] Pending Review Auto-Generat ed Referral 08/10/2022 08/10/2023 1 1 [facility] for referral (narrative)* Diagnostic Procedure Only (Routine) - Pending Review Specialty Diagnoses / Procedures Referred By Gal trevino Referred To Contact [facility] Diagnoses Abnormal mammogram Procedures US BREAST LTD RIGHT US BREAST UNI REAL TIME WITH IMAGE LIMITED Mindi Thomas APRN.JAVA LEAD ARCHITECT [address] [place] [address] [facility] [address] [place] [address] Referral ID Status Reason Start Date Expiration Date Visits Requested Visits Authorized [id number] Pending Review Auto-Generat ed Referral 02/13/2023 03/14/2024 1 1 * Diagnostic Procedure Only (Routine) - Authorized Specialty Diagnoses / Procedures Referred By Gal trevino Referred To Contact [facility] Diagnoses Abnormal mammogram Procedures SUSHIL DIAGNOSTIC RIGHT DIAGNOSTIC MAMMOGRAPHY COMPUTER-AIDED DETCJ UNI Mindi Thomas APRN.JAVA LEAD ARCHITECT [address] [place] [address] [facility] [address] [place] [address] Referral ID Status Reason Start Date Expiration Date Visits Requested Visits Authorized [id number] Authorized Auto-Generat ed Referral 02/13/2023 03/14/2024 1 1 [facility] for referral (narrative)* Diagnostic Procedure Only (Routine) - Closed Specialty Diagnoses / Procedures Referred By Gal trevino Referred To Contact [facility] Diagnoses Encounter for screening mammogram for breast cancer Procedures SUSHIL SCREENING SCREENING MAMMOGRAPHY BI 2-VIEW BREAST INC CAD Mindi Thomas APRN.JAVA LEAD ARCHITECT [address] [place] [address] [facility] [address] [place] [address] Referral ID Status Reason Start Date Expiration Date V isits Requested Visits Authorized [id number] Closed Auto-Generate d Referral 01/13/2022 02/12/2023 1 1 [facility] for referral (narrative)* Diagnostic Procedure Only (Routine) - Closed Specialty Diagnoses / Procedures Referred By Gal trevino Referred To Contact [facility] Diagnoses Abnormal mammogram Procedures US BREAST LTD RIGHT US BREAST UNI REAL TIME WITH IMAGE LIMITED Mindi Thomas APRN.JAVA LEAD ARCHITECT [address] [place] [address] [facility] [address] [place] [address] Referral ID Status Reason Start Date Expiration Date V isits Requested Visits Authorized [id number] Closed Auto-Generate d Referral 02/13/2023 03/14/2024 1 1 [facility] for referral (narrative)* Diagnostic Procedure Only (Routine) - Authorized Specialty Diagnoses / Procedures Referred By Gal t Referred To Contact [facility] Diagnoses Encounter for gynecological examination (general) (routine) without abnormal findings Encounter for screening mammogram for breast cancer Procedures SUSHIL SCREENING W [place] SCREENING DIGITAL BREAST TOMOSYNTHESIS BI SCREENING MAMMOGRAPHY BI 2-VIEW BREAST INC Mindi Marie APRN.JAVA LEAD ARCHITECT [address] [place] [address] [facility] [address] [place] [address] Referral ID Status Reason Start Date Expiration Date Visits Requested Visits Authorized [id number] Authorized Auto-Generat ed Referral 04/20/2025 1 1 [facility] for referral (narrative)No reason for referral information [facility]WS[facility] Work Phone: Reason for visit Narrative* Diagnostic Procedure Only (Routine) - Closed Specialty Diagnoses / Procedures Referred By Gal trevino Referred To Contact [facility] Diagnoses Encounter for screening mammogram for breast cancer Procedures SUSHIL SCREENING SCREENING MAMMOGRAPHY BI 2-VIEW BREAST INC CAD Mindi Thomas APRN.JAVA LEAD ARCHITECT [address] [place] [address] [facility] [address] [place] [address] Referral ID Status Reason Start Date Expiration Date V isits Requested Visits Authorized [id number] Closed Auto-Generate d Referral 01/04/2021 02/03/2022 1 1 [facility] for visit Narrative* Diagnostic Procedure Only (Routine) - Closed Specialty Diagnoses / Procedures Referred By Gal t Referred To Contact [facility] Diagnoses Encounter for screening mammogram for breast cancer Procedures SUSHIL SCREENING SCREENING MAMMOGRAPHY BI 2-VIEW BREAST INC CAD Mindi Thomas APRN.JAVA LEAD ARCHITECT [address] [place] [address] [facility] [address] [place] [address] Referral ID Status Reason Start Date Expiration Date V isits Requested Visits Authorized [id number] Closed Auto-Generate d Referral 01/13/2022 02/12/2023 1 1 [facility] for visit Narrative* Diagnostic Procedure Only (Routine) - Closed Specialty Diagnoses / Procedures Referred By Contac t Referred To Contact [facility] Diagnoses Abnormal mammogram Procedures SUSHIL DIAGNOSTIC RIGHT DIAGNOSTIC MAMMOGRAPHY COMPUTER-AIDED DETCJ UNI [facility], LENS MAKER.JAVA LEAD ARCHITECT [address] [place] [address] [facility] [address] [place] [address] Referral ID Status Reason Start Date Expiration Date V isits Requested Visits Authorized [id number] Closed Auto-Generate d Referral 02/13/2023 03/14/2024 1 1 [facility] for visit Narrative* Diagnostic Procedure Only (Routine) - Closed Specialty Diagnoses / Procedures Referred By Gal t Referred To Contact [facility] Diagnoses Encounter for screening mammogram for malignant neoplasm of breast Procedures SUSHIL SCREENING SCREENING MAMMOGRAPHY BI 2-VIEW BREAST INC CAD [place] Mindi, LENS MAKER.JAVA LEAD ARCHITECT [address] [place] [address] [facility] [address] [place] [address] Referral ID Status Reason Start Date Expiration Date V isits Requested Visits Authorized [id number] Closed Auto-Generate d Referral 11/16/2023 12/15/2024 1 1 [facility] Family History No Family History [...] September 23 015 8:38am Living Will No December 04, 2018 1 :05pm Power of Public Area Attendant No December 04, 2018 1:05pm Advance Directive Response Recorded Date/ Time Advance Directives No September 23, 015 7:38am Living Will No May 25, 023 5:58am Power of Public Area Attendant No May 25, 2023 5:58am Advance Directive Response Recorded Date/ Time Advance Directives No September 23, 015 7:38am Living Will No May 25, 023 12:40pm Power of Public Area Attendant No May 25, 2023 12:40pm Advance Directive Response Recorded Date/ Time Advance Directives No September 23 015 7:38am Living Will No August 01, 024 11:36am Power of Public Area Attendant No August 01, 2023 11:36am Advance Directive Response Recorded Date/ Time Advance Directives No September 23 015 8:38am Living Will No August 01 024 12:36pm Power of Public Area Attendant No August 01, 2023 12:36pm Advance Directive Response Recorded Date/ Time Advance Directives No September 23 015 8:38am Chief Complaint and Reason for Visit Chief [...] Abnormal echocardiogram Essential hypertension Right renal mass Chief Complaint Admit Date LABS November 10, 2024 12:20 pm Chief Complaint Admit Date LABS November 10, 2024 12:20 pm Malignant neoplasm of right kidney, exce pt renal p December 25, 2024 4:13pm Chief Complaint Admit Date LABS November 10, 2024 12:20 pm Malignant neoplasm of right kidney, exce pt renal p December 25, 2024 4:13pm 1 Y FU January 09, 2025 11: 15am Reason for Visit Admit Date Abnormal echocardiogram January 09, 2025 11:15am Essential hypertension January 09, 2025 11:15am Mixed hyperlipidemia January 09, 2025 11 :15am Renal mass January 09, 2025 11: 15am Right renal mass January 09, 2025 11: 15am Summary Purpose Additional Source Comments Goals (unrecognized [...] or prosecute any alcohol or drug abuse patient.[facility] the event this information is protected by the Federal Confidentiality of Alcohol and Drug Abuse Patient Records regulations: The Federal rules restrict any use of the information to criminally investigate or prosecute any alcohol or drug abuse patient.[facility] CenterIn the event this information is protected by the Federal Confidentiality of Alcohol and Drug Abuse Patient Records regulations: The Federal rules restrict any use of the information to criminally investigate or prosecute any alcohol or drug abuse patient.[facility] CenterIn the event this information is protected by the Federal Confidentiality of Alcohol and Drug Abuse Patient Records regulations: The Federal rules restrict any use of the information to criminally investigate or prosecute any alcohol or drug abuse patient.[facility] CenterIn the event this information is protected by the Federal Confidentiality of Alcohol and Drug Abuse Patient Records regulations: The Federal rules restrict any use of the information to criminally investigate or prosecute any alcohol or drug abuse patient.[facility] CenterIn the event this information is protected by the Federal Confidentiality of Alcohol and Drug Abuse Patient Records regulations: The Federal rules restrict any use of the information to criminally investigate or prosecute any alcohol or drug abuse patient.[facility] CenterIn the event this information is protected by the Federal Confidentiality of Alcohol and Drug Abuse Patient Records regulations: The Federal rules restrict any use of the information to criminally investigate or prosecute any alcohol or drug abuse patient.[facility] CenterIn the event this information is protected by the Federal Confidentiality of Alcohol and Drug Abuse Patient Records regulations: The Federal rules restrict any use of the information to criminally investigate or prosecute any alcohol or drug abuse patient.[facility] CenterIn the event this information is protected by the Federal Confidentiality of Alcohol and Drug Abuse Patient Records regulations: The Federal rules restrict any use of the information to criminally investigate or prosecute any alcohol or drug abuse patient.[facility] CenterIn the event this information is protected by the Federal Confidentiality of Alcohol and Drug Abuse Patient Records regulations: The Federal rules restrict any use of the information to criminally investigate or prosecute any alcohol or drug abuse patient.[facility] CenterIn the event this information is protected by the Federal Confidentiality of Alcohol and Drug Abuse Patient Records regulations: The Federal rules restrict any use of the information to criminally investigate or prosecute any alcohol or drug abuse patient.[facility] CenterIn the event this information is protected by the Federal Confidentiality of Alcohol and Drug Abuse Patient Records regulations: The Federal rules restrict any use of the information to criminally investigate or prosecute any alcohol or drug abuse patient.[facility] CenterIn the event this information is protected by the Federal Confidentiality of Alcohol and Drug Abuse Patient Records regulations: The Federal rules restrict any use of the information to criminally investigate or prosecute any alcohol or drug abuse patient.[facility] CenterIn the event this information is protected by the Federal Confidentiality of Alcohol and Drug Abuse Patient Records regulations: The Federal rules restrict any use of the information to criminally investigate or prosecute any alcohol or drug abuse patient.[facility] CenterIn the event this information is protected by the Federal Confidentiality of Alcohol and Drug Abuse Patient Records regulations: The Federal rules restrict any use of the information to criminally investigate or prosecute any alcohol or drug abuse patient.[facility] CenterIn the event this information is protected by the Federal Confidentiality of Alcohol and Drug Abuse Patient Records regulations: The Federal rules restrict any use of the information to criminally investigate or prosecute any alcohol or drug abuse patient.[facility] CenterIn the event this information is protected by the Federal Confidentiality of Alcohol and Drug Abuse Patient Records regulations: The Federal rules restrict any use of the information to criminally investigate or prosecute any alcohol or drug abuse patient.[facility] CenterIn the event this information is protected by the Federal Confidentiality of Alcohol and Drug Abuse Patient Records regulations: The Federal rules restrict any use of the information to criminally investigate or prosecute any alcohol or drug abuse patient.[facility] CenterIn the event this information is protected by the Federal Confidentiality of Alcohol and Drug Abuse Patient Records regulations: The Federal rules restrict any use of the information to criminally investigate or prosecute any alcohol or drug abuse patient.[facility] CenterIn the event this information is protected by the Federal Confidentiality of Alcohol and Drug Abuse Patient Records regulations: The Federal rules restrict any use of the information to criminally investigate or prosecute any alcohol or drug abuse patient.[facility] CenterIn the event this information is protected by the Federal Confidentiality of Alcohol and Drug Abuse Patient Records regulations: The Federal rules restrict any use of the information to criminally investigate or prosecute any alcohol or drug abuse patient.[facility] CenterIn the event this information is protected by the Federal Confidentiality of Alcohol and Drug Abuse Patient Records regulations: The Federal rules restrict any use of the information to criminally investigate or prosecute any alcohol or drug abuse patient.[facility] CenterIn the event this information is protected by the Federal Confidentiality of Alcohol and Drug Abuse Patient Records regulations: The Federal rules restrict any use of the information to criminally investigate or prosecute any alcohol or drug abuse patient.[facility] CenterIn the event this information is protected by the Federal Confidentiality of Alcohol and Drug Abuse Patient Records regulations: The Federal rules restrict any use of the information to criminally investigate or prosecute any alcohol or drug abuse patient.[facility] CenterIn the event this information is protected by the Federal Confidentiality of Alcohol and Drug Abuse Patient Records regulations: The Federal rules restrict any use of the information to criminally investigate or prosecute any alcohol or drug abuse patient.[facility] CenterIn the event this information is protected by the Federal Confidentiality of Alcohol and Drug Abuse Patient Records regulations: The Federal rules restrict any use of the information to criminally investigate or prosecute any alcohol or drug abuse patient.[facility] CenterIn the event this information is protected by the Federal Confidentiality of Alcohol and Drug Abuse Patient Records regulations: The Federal rules restrict any use of the information to criminally investigate or prosecute any alcohol or drug abuse patient.[facility] CenterIn the event this information is protected by the Federal Confidentiality of Alcohol and Drug Abuse Patient Records regulations: The Federal rules restrict any use of the information to criminally investigate or prosecute any alcohol or drug abuse patient.[facility] CenterIn the event this information is protected by the Federal Confidentiality of Alcohol and Drug Abuse Patient Records regulations: The Federal rules restrict any use of the information to criminally investigate or prosecute any alcohol or drug abuse patient.[facility] CenterIn the event this information is protected by the Federal Confidentiality of Alcohol and Drug Abuse Patient Records regulations: The Federal rules restrict any use of the information to criminally investigate or prosecute any alcohol or drug abuse patient.[facility] CenterIn the event this information is protected by the Federal Confidentiality of Alcohol and Drug Abuse Patient Records regulations: The Federal rules restrict any use of the information to criminally investigate or prosecute any alcohol or drug abuse patient.[facility] CenterIn the event this information is protected by the Federal Confidentiality of Alcohol and Drug Abuse Patient Records regulations: The Federal rules restrict any use of the information to criminally investigate or prosecute any alcohol or drug abuse patient.[facility] CenterIn the event this information is protected by the Federal Confidentiality of Alcohol and Drug Abuse Patient Records regulations: The Federal rules restrict any use of the information to criminally investigate or prosecute any alcohol or drug abuse patient.[facility] CenterIn the event this information is protected by the Federal Confidentiality of Alcohol and Drug Abuse Patient Records regulations: The Federal rules restrict any use of the information to criminally investigate or prosecute any alcohol or drug abuse patient.[facility] CenterIn the event this information is protected by the Federal Confidentiality of Alcohol and Drug Abuse Patient Records regulations: The Federal rules restrict any use of the information to criminally investigate or prosecute any alcohol or drug abuse patient.[facility] CenterIn the event this information is protected by the Federal Confidentiality of Alcohol and Drug Abuse Patient Records regulations: The Federal rules restrict any use of the information to criminally investigate or prosecute any alcohol or drug abuse patient.[facility] CenterIn the event this information is protected by the Federal Confidentiality of Alcohol and Drug Abuse Patient Records regulations: The Federal rules restrict any use of the information to criminally investigate or prosecute any alcohol or drug abuse patient.[facility] CenterIn the event this information is protected by the Federal Confidentiality of Alcohol and Drug Abuse Patient Records regulations: The Federal rules restrict any use of the information to criminally investigate or prosecute any alcohol or drug abuse patient.[facility] CenterIn the event this information is protected by the Federal Confidentiality of Alcohol and Drug Abuse Patient Records regulations: The Federal rules restrict any use of the information to criminally investigate or prosecute any alcohol or drug abuse patient.[facility] CenterIn the event this information is protected by the Federal Confidentiality of Alcohol and Drug Abuse Patient Records regulations: The Federal rules restrict any use of the information to criminally investigate or prosecute any alcohol or drug abuse patient.[facility] CenterIn the event this information is protected by the Federal Confidentiality of Alcohol and Drug Abuse Patient Records regulations: The Federal rules restrict any use of the information to criminally investigate or prosecute any alcohol or drug abuse patient.[facility] CenterIn the event this information is protected by the Federal Confidentiality of Alcohol and Drug Abuse Patient Records regulations: The Federal rules restrict any use of the information to criminally investigate or prosecute any alcohol or drug abuse patient.[facility] CenterIn the event this information is protected by the Federal Confidentiality of Alcohol and Drug Abuse Patient Records regulations: The Federal rules restrict any use of the information to criminally investigate or prosecute any alcohol or drug abuse patient.[facility] CenterIn the event this information is protected by the Federal Confidentiality of Alcohol and Drug Abuse Patient Records regulations: The Federal rules restrict any use of the information to criminally investigate or prosecute any alcohol or drug abuse patient.[facility] CenterIn the event this information is protected by the Federal Confidentiality of Alcohol and Drug Abuse Patient Records regulations: The Federal rules restrict any use of the information to criminally investigate or prosecute any alcohol or drug abuse patient.[facility] CenterIn the event this information is protected by the Federal Confidentiality of Alcohol and Drug Abuse Patient Records regulations: The Federal rules restrict any use of the information to criminally investigate or prosecute any alcohol or drug abuse patient.[facility] CenterIn the event this information is protected by the Federal Confidentiality of Alcohol and Drug Abuse Patient Records regulations: The Federal rules restrict any use of the information to criminally investigate or prosecute any alcohol or drug abuse patient.[facility] CenterIn the event this information is protected by the Federal Confidentiality of Alcohol and Drug Abuse Patient Records regulations: The Federal rules restrict any use of the information to criminally investigate or prosecute any alcohol or drug abuse patient.[facility] CenterIn the event this information is protected by the Federal Confidentiality of Alcohol and Drug Abuse Patient Records regulations: The Federal rules restrict any use of the information to criminally investigate or prosecute any alcohol or drug abuse patient.[facility] CenterIn the event this information is protected by the Federal Confidentiality of Alcohol and Drug Abuse Patient Records regulations: The Federal rules restrict any use of the information to criminally investigate or prosecute any alcohol or drug abuse patient.[facility] CenterIn the event this information is protected by the Federal Confidentiality of Alcohol and Drug Abuse Patient Records regulations: The Federal rules restrict any use of the information to criminally investigate or prosecute any alcohol or drug abuse patient.[facility] CenterIn the event this information is protected by the Federal Confidentiality of Alcohol and Drug Abuse Patient Records regulations: The Federal rules restrict any use of the information to criminally investigate or prosecute any alcohol or drug abuse patient.[facility] Reason for Visit (unrecogniz ed section and content) Reason Comments Yearly Exam With Mammogram Reason Comments Orders Reason Comments Patient Question Reason Onset Date Comments Population Health Navigation Outreach 07/10/2022 ACO CHAR PCSA Reason Comments Appointment Reason Comments Medicare Wellness Exam Reason Comments Consult Reason Comments Sinus Problem drainage, nausea and cough x 10 days Reason Comments Recheck cough Reason Comments Results Reason Comments Outside Nephrology Reason Comments Mammogram Result Call Back Reason Comments Sinus Problem Congestion, pressure headache, x 8 days cough Reason Comments Outside [id number] Ordered Reason Comments Radiology US Specialty Diagnoses / Procedures Referred By Contac t Referred To Contact [facility] Diagnoses Abnormal mammogram Procedures US BREAST LTD RIGHT US BREAST UNI REAL TIME WITH IMAGE LIMITED Mindi Thomas, MARQUISE.JAVA LEAD ARCHITECT [address] [place] [address] [facility] [address] [place] [address] Referral ID Status Reason Start Date Expiration Date V isits Requested Visits Authorized [id number] Closed Auto-Generate d Referral 02/13/2023 03/14/2024 1 1 Reason Comments Outside Procedure Discharge Instructi ons, H&P Reason Comments Outside Urology Reason Comments Outside Echo Reason Comments Consult Cardiology Reason Comments Outside Diabetic Eye Exam Reason Comments Cough Facial pressure & pa in, nasal congestion x 10 days, reports chronic cough x 1 month. Reason Comments Results - Ct H Reason Comments Medicare Wellness Exam And extensive Reason Comments Well Woman Reason Comments F/U 3 Month Reason Comments Consult Outside nephrology Reason Comments Outside [id number]-[id number] Ordered Nephrology Reason Comments Outside Opthalmology Care Teams (unrecognized sec tion and content) Tomato Pulper Operator Relationship Specialty Start Date End Date Vinny Briones MD [address] [place], [place] [id number] PCP - General Family Practice 11/10/14 Tomato Pulper Operator Relationship Specialty Start Date End Date Vinny Briones MD [address] [place], [place] [id number] PCP - General Family Practice 11/10/14 Tomato Pulper Operator Relationship Specialty Start Date End Date Vinny Briones MD [address] [place] [address] PCP - General Family Practice 11/10/14 Tomato Pulper Operator Relationship Specialty Start Date End Date Vinny Briones MD [facility] [place] [address] PCP - General Family Practice 11/10/14 Tomato Pulper Operator Relationship Specialty Start Date End Date Vinny Briones MD [address] [place] [address], [place] [address] PCP - General Family Practice 11/10/14 Tomato Pulper Operator Relationship Specialty Start Date End Date Vinny Briones MD [address] [place] [address], [place] [address] PCP - General Family Medicine 11/10/14 Tomato Pulper Operator Relationship Specialty Start Date End Date Vinny Briones MD [address] [place] [address], [place] [address] PCP - General Family Medicine 11/10/14 07/10/22 Tomato Pulper Operator Relationship Specialty Start Date End Date Vinny Briones MD [address] [place] [address], [place] [address] PCP - General Family Medicine 07/12/22 Tomato Pulper Operator Relationship Specialty Start Date End Date Vinny Briones MD [address] [place] [address], [place] [address] PCP - General Family Medicine 07/12/22 Tomato Pulper Operator Relationship Specialty Start Date End Date Vinny Briones MD [address] [place] [address], [place] [address] PCP - General Family Medicine 07/12/22 Tomato Pulper Operator Relationship Specialty Start Date End Date Vinny Briones MD [address] [place] [address], [place] [address] PCP - General Family Medicine 07/12/22 Tomato Pulper Operator Relationship Specialty Start Date End Date Vinny Briones MD [address] [place] [address] PCP - General Family Medicine 07/12/22 Tomato Pulper Operator Relationship Specialty Start Date End Date Vinny Briones MD [address] [place] [address] PCP - General Family Medicine 07/12/22 Team Status: Active Member Role Status Dates Dr. Vinny Briones MD Family Provider Active Dr. Vinny Briones MD Primary Care Provider Active Team Status: Inactive Member Role Status Dates Dr. Vinny Birones MD Primary Care Provider Active Dr. Ly Raygoza DO Attending Provider, Alessia degroot Active Tomato Pulper Operator Relationship Specialty Start Date End Date Vinny Briones MD [address] [place] [address] PCP - General Family Medicine 07/12/22 Tomato Pulper Operator Relationship Specialty Start Date End Date Vinny Briones MD [address] [place] [address] PCP - General Family Medicine 07/12/22 Tomato Pulper Operator Relationship Specialty Start Date End Date Vinny Briones MD [address] [place] [address] PCP - General Family Medicine 07/12/22 Tomato Pulper Operator Relationship Specialty Start Date End Date Vinny Briones MD [address] [place] [address] PCP - General Family Medicine 07/12/22 Tomato Pulper Operator Relationship Specialty Start Date End Date Vinny Briones MD [address] [place] [address] PCP - General Family Medicine 07/12/22 Tomato Pulper Operator Relationship Specialty Start Date End Date Vinny Briones MD [address] [place] [address] PCP - General Family Medicine 07/12/22 Tomato Pulper Operator Relationship Specialty Start Date End Date Vinny Briones MD [address] [place] [address] PCP - General Family Medicine 07/12/22 Team Status: Active Member Role Status Dates Dr. Vinny Briones MD Primary Care Provider Active Dr. Steve Woods , DO Emergency Provider Active Dr. Darius Garcia , DO Admit Provider, Attending Pr ovidjose c Active Team Status: Active Member Role Status [...] Dr. Derek Obrien DO Other Provider Active Carlottaalicia Head ECO INDUSTRIAL DEVELOPMENT CONSULTANT, ECO INDUSTRIAL DEVELOPMENT CONSULTANT-C Attending Provider, Other Prov ider Active Dr. Garret Longoria MD Other Provider Active Team Status: Active Member Role Status Dates Dr. Vinny Briones MD Primary Care Provider Active Dr. Steve Woods , Emergency Provider Active Dr. Darius Garcia , DO Admit Provider, Other Provid er Active Dr. Darius Zepeda MD Other Provider Active Dr. Ryley Garner MD Other Provider Active Dr. Steven Francisco MD Other Provider Active Dr. Benedicto Mccain MD Other Provider Active Dr. Brent Augustin MD Other Provider Active Dr. Dontae Handy MD Other Provider Active Dr. Derek Obrien , Other Provider Active Carlottaalicia Head ECO INDUSTRIAL DEVELOPMENT CONSULTANT, ECO INDUSTRIAL DEVELOPMENT CONSULTANT-C Other Provider Active Dr. Garret Longoria MD [...] Care Provider Active Dr. Steve Woods , Emergency Provider Active Dr. Darius Garcia DO Admit Provider, Other Provid er Active Dr. Darius Zepeda MD Other Provider Active Dr. Ryley Garner MD Other Provider Active Dr. Steven Francisco MD Other Provider Active Dr. Benedicto Mccain MD Other Provider Active Dr. Brent Augustin MD Other Provider Active Dr. Dontae Handy MD Other Provider Active Dr. Derek Obrien DO Other Provider Active Carlotta Head ECO INDUSTRIAL DEVELOPMENT CONSULTANT, ECO INDUSTRIAL DEVELOPMENT CONSULTANT-C Other Provider Active Dr. Garret Longoria MD [...] Dr. Derek Obrien DO Other Provider Active Carlottaalicia Head ECO INDUSTRIAL DEVELOPMENT CONSULTANT, ECO INDUSTRIAL DEVELOPMENT CONSULTANT-C Attending Provider, Other Prov ider Active Dr. Garret Longoria MD Other Provider Active Team Status: Active Member Role Status Dates Dr. Vinny Briones MD Primary Care Provider Active Dr. Steve Crouch MD Attending Provider Active Dr. Darius Garcia DO Referring Provider Active Team Status: Active Member [...] Provider Active ALEJANDRINA BRYANT Attending Provider Active Tomato Pulper Operator Relationship Specialty Start Date End Date Vinny Briones MD [address] [place] [address] PCP - General Family Medicine 07/12/22 Tomato Pulper Operator Relationship Specialty Start Date End Date Vinny Briones MD [address] [place] [address] PCP - General Family Medicine 07/12/22 Tomato Pulper Operator Relationship Specialty Start Date End Date Vinny Briones MD [address] [place] [address] PCP - General Family Medicine 07/12/22 Tomato Pulper Operator Relationship Specialty Start Date End Date Vinny Briones MD [address] [place] [address] PCP - General Family Medicine 07/12/22 Tomato Pulper Operator Relationship Specialty Start Date End Date Vinny Briones MD [address] [place] [address] PCP - General Family Medicine 07/12/22 Tomato Pulper Operator Relationship Specialty Start Date End Date Vinny Briones MD [address] [place] [address] PCP - General Family Medicine 07/12/22 Tomato Pulper Operator Relationship Specialty Start Date End Date Vinny Briones MD [address] [place] [address] PCP - General Family Medicine 07/12/22 Tomato Pulper Operator Relationship Specialty Start Date End Date Vinny Briones MD [address] [place] [address] PCP - General Family Medicine 07/12/22 Tomato Pulper Operator Relationship Specialty Start Date End Date Vinny Briones MD [address] [place] [address] PCP - General Family Medicine 07/12/22 Tomato Pulper Operator Relationship Specialty Start Date End Date Vinny Briones MD [address] [place] [address] PCP - General Family Medicine 07/12/22 Tomato Pulper Operator Relationship Specialty Start Date End Date Vinny Briones MD [address] [place] [address] PCP - General Family Medicine 07/12/22 Tomato Pulper Operator Relationship Specialty Start Date End Date Vinny Briones MD [address] [place] [address] PCP - General Family Medicine 07/12/22 Tomato Pulper Operator Relationship Specialty Start Date End Date Vinny Briones MD [address] [place] [address] PCP - General Family Medicine 07/12/22 Tomato Pulper Operator Relationship Specialty Start Date End Date Vinny Briones MD [address] [facility], [place] [address] PCP - General Family Medicine 07/12/22 Alicia Hamlin APRN.CNP [address] [facility], [place] [id number] Deli Worker Family Medicine 11/03/24 Yokasta Mcnulty PA-C [address] [facility], [place] [id number] Deli Worker [facility] 11/03/24 Team Status: Active Member Role Status Dates Dr. Vinny Briones MD Primary Care Provider Active Team Status: Inactive Member Role Status Dates Dr. Vinny Briones MD Primary Care Provider Active Start: November 10, 2024 End: November 10, 2024 Dr. Ly Raygoza DO Attending Provider Active Start: November 10, 2024 End: November 10, 2024 Dr. Ly Raygoza DO Referring Provider Active Start: November 10, 2024 End: November 10, 2024 Team Status: Active Member Role/Relationship Status Dates Dr. Vinny Briones MD Primary Care Provider Active Team Status: Inactive Member Role/Relationship Status Dates Dr. Vinny Briones MD Primary Care Provider Active Start: November 10, 2024 End: November 10, 2024 Dr. Ly Raygoza DO Attending Provider Active Start: November 10, 2024 End: November 10, 2024 Dr. Ly Raygoza DO Referring Provider Active Start: November 10, 2024 End: November 10, 2024 Team Status: Inactive Member Role/Relationship Status Dates Dr. Vinny Briones MD Primary Care Provider Active Start: December 25, 2024 End: December 25, 2024 Dr. Garret Longoria MD Attending Provider Active Start: December 25, 2024 End: December 25, 2024 Dr. Garret Longoria MD Referring Provider Active Start: December 25, 2024 End: December 25, 2024 Team Status: Inactive Member Role/Relationship Status Dates Dr. Vinny Briones MD Primary Care Provider Active Start: January 09, 2025 End: January 09, 2025 Dr. Vinny Briones MD Referring Provider Active Start: January 09, 2025 End: January 09, 2025 Jessica Schaefer NP, ECO INDUSTRIAL DEVELOPMENT CONSULTANT-C Attending Provider Active Start: January 09, 2025 End: January 09, 2025 INFORMATION SOURCE (unrecogn ized section and content) DATE CREATED AUTHOR 01/11/2025 [facility] DATE CREATED AUTHOR AUTHOR'S ORGANIZ ATION 01/27/2025 [facility] FOR RECORDS PERTAINING TO PATIENTS WHO [...] BE BASED ON THE PRIMARY CLINICAL RECORDS. [employer] provides no warranty or guarantee of the accuracy or completeness of information in this document.
[2025-02-04] MEDS: Lactated Ringers 1,000 ML 15 ML IV (06:55)
--- NOTE | 2025-02-04 07:09 | PCM.PRE.AN2 ---
ASA Classification* ASA Classification ASA Classification: 3 (CKD3, HTN, GERD, clearance from cardiology obtained. Please place 2nd IV, can be done post induction. ) Assessment & Plan Anesthesia* Anesthesia Assessment Anesthesia Assessment: Discussed sedation and/or anesthesia options, risks, benefits, and alternatives with patient/parents/legal guardian/POA. Questions invited. The patient/parents/legal guardian/POA seems to understand and agrees to proceed with anesthesia plan. Reviewed the physical assessment, medical history, allergy history and patient home medications list prior to surgery/procedure/anesthetic and documented any changes. Performed airway and anesthesia risk assessments. Anesthesia Type Anesthesia Type: General History Source History Obtained from:: Patient and Chart Anesthesia Focused Assessment* Temperature: 97.5 F Pulse Rate: 65 Blood Pressure: 100/66 Respiratory Rate: 18 Pulse Ox: 98 Oxygen Delivery Method: Room Air Airway Assessment Mouth opens: >3 cm Mallampati Score: II Teeth Condition: Caps/Crowns, Lower (missing many ) and Missing Neck Range of motion (ROM): Full ROM Labs Anesthesia Preop lab: CBC WBC 5.9 K/mm3 (4.4-11.0) 01/09/25 11:57 01/09/25 RBC 4.15 M/mm3 (4.2-5.4) L 01/09/25 11:57 01/09/25 Hgb 12.4 g/dL (12.0-15.0) 01/09/25 11:57 01/09/25 Hct 37.9 % (37-47) 01/09/25 11:57 01/09/25 Plt Count 258 K/mm3 (150-450) 01/09/25 11:57 01/09/25 CHEMISTRY Potassium 4.4 mmol/L (3.3-5.1) 01/09/25 11:57 01/09/25 Sodium 137 mmol/L (133-145) 01/09/25 11:57 01/09/25 Phosphorus 4.2 mg/dL (2.7-4.5) 11/10/24 12:23 11/10/24 BUN 16 mg/dL (4-19) 01/09/25 11:57 01/09/25 Creatinine 1.31 mg/dL (0.70-1.20) H 01/09/25 11:57 01/09/25 Glucose 96 mg/dL (70-99) 01/09/25 11:57 01/09/25 TSH 1.02 uIU/mL (0.358-3.74) 05/28/23 10:05 05/28/23 COAG PT 14.0 SECONDS (11.7-14.9) 07/24/23 16:35 07/24/23 Pre-Assessment Diagnosis/Proposed Procedure Planned Operative Procedure(s): LAP ROBOTIC PARTIAL NEPHRECTOMY LEFT Anesthesia History Anesthesia History - repossessor: Anesthesia History - repossessor Hx Hospitalization No 01/21/25 14:10 Any Problems With Anesthesia No 01/21/25 14:10 Cholinesterase deficiency No 01/21/25 14:10 You/Your Family Experience No 01/21/25 14:10 fever (hyperthermia) with Relationship Recent Exposure to Contagious No 02/04/25 06:24 Disease Does patient have nerve No 01/21/25 14:10 stimulator Patient instructed to have device shut off --Does patient have Pacemaker No 02/04/25 06:24 or ICD? When Was Last Pacemaker Check QUESTION #4 FULL TEXT: You/Your Family Experience fever (hyperthermia) with Anesthesia Last Oral Intake Last Oral intake: Last Oral Intake NPO since 21:00 02/04/25 06:24 Meds taken in AM with sips of Yes 02/04/25 06:24 water? Meds patient instructed to hydroxychloroquine, 02/04/25 06:24 take am of surgery metoprolol, omeprazole PONV PONV - repossessor: PONV - repossessor Female Yes 01/21/25 14:10 HX of Motion Sickness No 01/21/25 14:10 HX of N/V After Surgery No 01/21/25 14:10 Non-Smoker Yes 01/21/25 14:10 Duration of Surgery greater Yes 01/21/25 14:10 than 60 minutes Number of Risk Factors 3 01/21/25 14:10 PONV Score Moderate Risk 01/21/25 14:10 Height & Weight Height & Weight: Anesthesia: Height & Weight Height 5 ft 6 in 02/04/25 06:24 Weight: 65 kg 02/04/25 06:24 Body Mass Index (BMI) 23.1 02/04/25 06:24 Respiratory Assessment Respiratory Assessment - repossessor: Respiratory Tract Infection Hx - repossessor Hx Respiratory Tract Infection No 01/21/25 14:10 STOP Sleep Apnea STOP Sleep Apnea - repossessor: STOP Sleep Apnea - repossessor Hx Hypertension Yes: CONTROLLED WITH MED 01/21/25 14:10 Hx Sleep Apnea No 01/21/25 14:10 CPAP No 08/01/23 09:45 BIPAP No 12/04/18 13:05 Do you snore loudly (louder No 01/21/25 14:10 than talking or can be heard Do you often feel tired/ No 01/21/25 14:10 fatigued/ sleepy during daytime? Has anyone observed you stop No 01/21/25 14:10 breathing during sleep? STOP Results Negative 01/21/25 14:10 QUESTION #5 FULL TEXT : Do you snore loudly (louder than talking or can be heard through closed doors)? Tobacco Use History Tobacco Use History - repossessor: Tobacco Use History - repossessor Tobacco Use Smoking Status Never smoker 01/21/25 14:10 Hx Tobacco Use No 01/21/25 14:10 Years Smoking Packs Smoked per Day Smoking Cessation Date was within the last 15 years Hx Smoking Cessation Date Hx Smoking Cessation Counseling Hematologic Medial History Hematologic Hx - repossessor: Hematologic Medical Hx - barrel endshaker adjuster Hx of Blood Transfusion No 01/21/25 14:10 Hx of Transfusion in last 3 No 01/21/25 14:10 Months Date of Last Transfusion (if within last 3 months) Ever experience any problems No 01/21/25 14:10 with transfusion(s)? 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 confused, unrespo /Reproduction History /Reproductive History - repossessor: /Reproductive Hx- repossessor Hx Now No 01/21/25 14:10 Gestational Age (in weeks): EDC: Hx Hx Para Hx Section SAB No 01/21/25 14:10 Active Medications Active Medications: Current Medications Generic Name Dose Route Start Last Admin Trade Name Freq PRN Reason Stop Dose Admin Cefazolin Sodium 2 gm/ Sodium 110 mls @ 200 mls/hr 02/04/25 07:30 Chloride IV 02/04/25 08:02 INTRAOP ONE Lactated Ringer's 1,000 mls @ 15 mls/hr 02/04/25 06:15 02/04/25 06:55 IV 15 mls/hr .Q48H TRESSA Administration PFSH Medical History (Updated 01/21/25 @ 14:18 by Dori Merida) Post-menopausal Rheumatoid arthritis Hypertension Wears glasses Cancer History of renal disease Anemia DVT (deep venous thrombosis) Non-smoker History of echocardiogram Cardiology follow-up encounter History of irregular heartbeat Celiac disease Right renal mass Mixed hyperlipidemia GERD (gastroesophageal reflux disease) Osteoarthritis Sjogren's disease Home Medications Medication Instructions Recorded Last Taken Type calcium 600 mg (as 1 tab PO BIDCM SUPPLEMENT 03/14/13 02/03/25 History carbonate)-vitamin D3 20 mcg (800 unit) tablet fluticasone propionate 50 2 spray NASAL DAILY ALLERGIES 03/14/13 02/03/25 History mcg/actuation nasal spray,suspension omeprazole 20 mg capsule,delayed 20 mg PO DAILY GERD 03/14/13 02/04/25 History release montelukast 10 mg tablet 10 mg PO QHS ALLERGIES 09/23/14 02/03/25 History cholecalciferol (vitamin D3) 50 2,000 unit PO DAILY SUPPLEMENT 09/20/17 02/03/25 History mcg (2,000 unit) capsule hydroxychloroquine 200 mg tablet 200 mg PO DAILY RA 05/24/23 02/04/25 History lactobacillus combination no.9 4 4,000 mmu cells PO DAILY SUPPLEMENT 06/14/23 02/03/25 History billion cell capsule (Adult 50 Plus Probiotic) iron, carbonyl 18 mg iron chewable 18 mg PO DAILY SUPPLEMENT 12/07/23 02/03/25 History tablet mecobalamin (vitamin B12) 1,000 1,000 mcg PO DAILY SUPPLEMENT 12/07/23 02/03/25 History mcg chewable tablet metoprolol tartrate 25 mg tablet 25 mg PO BID HEART #180 tabs 01/09/25 02/04/25 Rx Allergy/AdvReac Type Severity Reaction Status Date / Time gluten Allergy Food Verified 02/04/25 06:21 Allergy amoxicillin AdvReac Nausea Verified 02/04/25 06:21 doxycycline AdvReac Other Verified 02/04/25 06:21 erythromycin base AdvReac Nausea Verified 02/04/25 06:21 (Erythromycin Base) hydrocodone bitartrate (From AdvReac Vomiting Verified 02/04/25 06:21 Vicodin) Sulfa (Sulfonamide AdvReac Nausea Verified 02/04/25 06:21 Antibiotics) Family History (Reviewed 01/09/25 @ 12:52 by Jessica Schaefer GAS STATION SERVICE ATTENDANT, GAS STATION SERVICE ATTENDANT-C) Mother Breast cancer Colon cancer Cancer skin CVA (cerebral vascular accident) Heart disease aortic valve replacement Father CHF (congestive heart failure) Sister Colon cancer Hypertension Brother Prostate cancer Surgical History (Updated 01/21/25 @ 14:18 by Dori Merida) History of surgery Hx of repair of ear bone S/P ectopic S/P tubal ligation S/P colonoscopy S/P cholecystectomy Social History (Reviewed 01/09/25 @ 12:52 by Jessica Schaefer GAS STATION SERVICE ATTENDANT, GAS STATION SERVICE ATTENDANT-C) Smoking Status: Never smoker alcohol intake: never substance use type: does not use caffeine: Yes Type: tea Review of Systems (Anesthesia) ROS Narrative System reviewed and no additional complaints, except as documented.
[2025-02-04] MEDS: Scopolamine 1mg/72hr Patch 1 PATCH TD (07:30)
[2025-02-04] MEDS: Cefazolin 1 GM/5 ML Vial 2 GM IV (07:30)
[2025-02-04] MEDS: Midazolam 2 MG/2 ML Syringe IV (07:30)
--- NOTE | 2025-02-04 07:30 | MASS_PTH ---
PATIENT: NETO CARDOZO LOC: MS3 U#:[id number] AGE/SX: 69/F ROOM: [facility] [place] RE02/04/[address]: Dr. Garret Longoria MD : 1955 BED: 1 DIS: 02/05/2025 SPEC #: [id number] RECD: 02/04/25 09:51 STATUS: JEFE VIDAL #: [id number] JOSH: 02/04/25 07:[address]: Garret Longoria DEPT: SURGICAL PATHOLOGY RECD BY: Cristobal Kennedy ENTERED: 02/04/25 14:43 SP TYPE: Mass OTHR DR: Dr. Vinny Mancilla MD Tissues: A - Kidney, NOS Procedures: Immunohistochemical Stains Surgery Specimen Level V IHC Stain ADDITIONAL HEADER OPERATION: Laparoscopic robotic partial nephrectomy PRE-OP DIAGNOSIS: Neoplasm of left kidney TISSUE SUBMITTED: A- Complex cystic mass - left kidney MICROSCOPIC DIAGNOSIS A. 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 * Note: IHC performed - * Positive: CK7, CD10, CAIX * Negative: AMACR COMMENT This is an indolent neoplasm/tumor. Diagnostic features of carcinoma are not observed in these sections. A surgical margin was not identified/inked at grossing, therefore microscopic assessment of the surgical margin cannot be performed. Selected slides/images were reviewed in intradepartmental consultation by Dr Delmi Delvalle ( pathology division, [facility]). MICROSCOPIC DESCRIPTION Slides are reviewed. All matched controls reacted appropriately. These tests were developed and their performance characteristics determined by [facility]. They may not have been cleared or approved by the U.S. Food and Drug Administration. The FDA has determined that such clearance or approval is not necessary. The above immunohistochemical markers and/or special stains have been reviewed by the Pathologist. GROSS DESCRIPTION A. Received in formalin labeled with the patient's name and date of . Designated as " complex cystic mass-left kidney" is a 3.4 x 3.4 x 0.8 cm fajardo-yellow, fatty portion of tissue tissue with an attached, 1.5 x 1.4 x 0.6 cm cauterized and disrupted cystic area (suspicious for renal parenchyma), collectively weighing 5.1 g. The specimen is devoid of orientation. The specimen is serially sectioned and entirely submitted in 5 cassettes, to include the cystic area in cassettes A1-A3. ND 02/04/2025 CPT:88551,89602,19407i6
[2025-02-04] MEDS: Lidocaine 1% (5 ml sdv) 5 ML Vial 4 ML IV (07:35)
[2025-02-04] MEDS: fentaNYL 100 MCG/2 ML Ampul IV (08:49)
--- NOTE | 2025-02-04 08:53 | DCINST_ITS ---
Discharge Instructions DC O2, CPAP, BIPAP needs Home O2 Discharge instructions: No Dressing / Incision Discharge Activity: May Not Drive and May Shower Return to work on:: 02/25/25 May shower in (days): 1 Dressing / Incision Call your doctor if your incision/area has: Continuous Slow Oozing and Sudden Increased Bleeding Call your doctor if you observe: Fever of 101 or Higher, Inability to have a bowel movement and Uncontrolled pain Suture Line Care: Avoid Pulling/Pushing and Avoid Pinching/Bending Follow Up Care Please Follow Up With: Garret Longoria MD When: Call [phone] for an appointment Test Results: Test results from this visit will be discussed in further detail at your follow- up appointment, if applicable. Discharge Plan Admission Admit Date/Time: 02/04/25 05:51 Primary Reason for Your Visit: renal tumor, left kidney removed Attending Provider: Garret Longoria Primary Care Provider: Vinny Mancilla Discharge Orders/Prescriptions Prescriptions: New oxycodone 5 mg tablet 5 mg PO Q6H PRN (Reason: pain) 3 Days Qty: 10 0RF docusate sodium [Colace] 100 mg capsule 100 mg PO BID Qty: 20 0RF Continued Adult 50 Plus Probiotic 4 billion cell capsule 4,000 mmu cells PO DAILY Rx Instructions: administer with a meal iron, carbonyl 18 mg iron tablet,chewable 18 mg PO DAILY mecobalamin (vitamin B12) 1,000 mcg tablet,chewable 1,000 mcg PO DAILY metoprolol tartrate 25 mg tablet 25 mg PO BID Qty: 180 3RF omeprazole 20 MG capsule 20 mg PO DAILY fluticasone propionate 1 SPRAY spray,suspension 2 spray NASAL DAILY calcium carbonate-vitamin D3 1 TAB tablet 1 tab PO BIDCM montelukast 10 MG tablet 10 mg PO QHS cholecalciferol (vitamin D3) 2,000 UNIT capsule 2,000 unit PO DAILY hydroxychloroquine 200 mg tablet 200 mg PO DAILY Referrals / Follow Up: Vinny Mancilla MD [Primary Care Provider] - Garret Longoria MD [Med Staff - Active Staff] - Disposition Disposition (needs filled in before D/C Order can be placed): Home, Self Care
--- NOTE | 2025-02-04 08:54 | PCM.OPRPT ---
Operative Report (Standard) Operative Information Date of Procedure: 02/04/25 Pre-Operative Diagnosis: left renal mass Post-Operative Diagnosis: same Surgery/Procedure Performed: left laparoscopic robotic assisted partial nephrectomy cattle driver: Yes Fire Warden: Yvonen Beckett Tasks completed by or first assist registered nurse: Opening, Closing, Opening & closing, Harvesting grafts, Dissecting tissue, Removing tissue, Implanting device, Altering tissue, Insert Trochanter, Hemostasis: Clamp, Hemostasis: Tie, Hemostasis: Electrocautery, Trocar, Retracting and Other Type of Anesthesia: General RN Documented Start/Stop Times: Operation Date: 02/04/25 07:30 Case Time Into Pre-Op 02/04/25 06:04 Out of Pre-Op 02/04/25 07:26 Anesthesia Start 02/04/25 07:30 Into Room 02/04/25 07:30 Procedure Start 02/04/25 07:57 Procedure Start Time: 07:57 Procedure Stop Time: 08:55 Select all DRAINS/GRAFTS/IMPLANTS that apply: Drains Drain details: arreaga Estimated Blood Loss: 25cc Specimen collected: Yes Description of specimen(s) removed: left renal mass, cystic Description of surgery: Patient presented to [facility] for a laparoscopic robotic assisted left partial nephrectomy. We talked about the options of management for the patient's renal mass. The patient had a renal mass. We discussed with the patient that there is always a possible metastatic disease development after this procedure and the patient understands that more treatments such as chemotherapy or oral chemotherapy may be necessary for further development of metastatic disease which may not be curable. We discussed the risks of the procedure including the risk of general anesthetic, bleeding, infection, blood transfusion, formation of hernias, recurrence of cancer in the local area, development of lymphoceles, chylous ascites, and lymph fluid collection in the renal bed. After full discussion with the patient, the patient was marked, and the patient was taken back to the operating room. Patient was taken back to the operating room was placed for supine on the table and underwent general endotracheal intubation. A Arreaga catheter was placed into the bladder. The patient side was recognized and marked. A timeout procedure was performed. I identified the patient the side of the surgery and the surgery that was planned to be performed. Once the patient was under general anesthetic then the patient was placed in modified lateral flank position on the patient and I had the patient's. I then infiltrated the skin with 1/2 percent Marcaine and a small incision in the skin and use a Veress needle to introduce the Veress needle into the peritoneal cavity and filled the peritoneal cavity with CO2 gas. I then placed the camera trocar under direct visualization. I then placed a right arm robotic trocar. Then if necessary scissors were used to dissect any adhesions. And then the left arm trocar was placed and a fourth robotic trocar was placed. After the trocars were placed I placed an air seal port between the #1 arm and the camera for the bilingual administrative assistant to use during the case. Then the robot was docked and I placed scissors and prograsp and the robotic arms and proceeded first by incising the white line of Toldt and reflecting the colon off the kidney I started superiorly above the kidney reflecting the spleen of the kidney and worked all the way inferiorly after the colon was completely reflected off the kidneys fascia was grabbed and elevated and we started reflecting the mesentery of the colon off the kidney until I was able to get underneath the kidney and the inferior tail of the Gerota's fascia and I could see the gonadal vein and the ureter I went underneath the gonadal vein and the ureter and then start tracing up towards the hilum of the kidney. At this point then the fourth arm was docked and used the long Fenestrated grasper on the fourth arm to allow retraction of the kidney superiorly this allowed me to use the right and left arm to then continue the meticulous dissection, then using ultrasound the the mass was identified in the lower pole, appeated to be cystitic nature, then I circumferentially scored around the mass edges making sure the edges were there rescored were clear of any tumor inferior to the ultrasound. Then once the tumor was identified the ultrasound confirmed the location and all the edges of the tumor were scored on the parenchyma. Time was marked. Then we went for the dissection of the tumor using sharp dissection left and electrocautery dissection I dissected deep into the parenchyma underneath the tumor major with a wide dissection and then came underneath the tumor reflecting the tumor off the kidney as we went underneath the tumor and on the other side of the dissection. Once the tumor was removed in its entirety then the tumor was placed in an Endo Catch bag. We then used extensive cauterization to cauterize the base of resection site and then I ran the base of the resection site with a V-Loc stitch and also closed any potential opening into the collecting system while this was done. Then at this point then we closed the kidney over itself using 0 Vicryl stitch in a running fashion using interrupted clips to allow compression of the parenchyma together as we ran the suture from end and then we placed a clip and we would perform a renophary repair of the kidney pulling the edges together using the large clips. Once this was completed then the whole defect was closed then at this point time was marked and we removed and unclipped the bulldogs from the artery there was good perfusion of the kidney and we checked the excision site and there was no bleeding from the excision site. The tumor was then also placed in an Endo Catch bag immediately. We then positioned the kidney back up in the lateral side making sure that it was properly secured and then we extracted the tumor through the extraction site. The extraction site was then closed primarily we went back inside the abdomen after 10 minutes of extraction to check for any bleeding and there was no bleeding from the kidney. We all the sponges and needles were accounted for. We then undocked the robot we removed all the ports under direct visualization and then we closed any ports that were 10 to 12 mm in size. We then closed all the subcuticular incisions with stitches patient's anesthetic is currently being reversed and he is being taken back to the PACU in good condition. The role of the first assistant manager JAY, assisted with myself during the entire procedure, the EMPLOYMENT ATTORNEY assisted by passing instruments through the air seal port, passing suture, needles, sponges during the surgery. The RFA also assisted with providing some suction using the suction irrigation and some irrigation during the surgery. Also the bilingual administrative assistant provided some traction minorly during the dissection of the prostate and the seminal vesicles. The RFA also helped me extract the prostate at the end of the case and helped close the fascia, and the bilingual administrative assistant also helped close the skin incisions with subcuticular stitches. The bilingual administrative assistant was monitored closely and under my direct supervision the entire case. Surgical Findings: cystic mass removed completely Complications Complications: No Admit VTE Documentation VTE Present on Admission: No VTE Mechan Device Prophylaxis: SCD's VTE Pharm Prophylaxis ordered?: No
--- NOTE | 2025-02-04 09:12 | PCM.POST.ANE ---
Anesthesia: Postop Eval I Current Vital Signs Temperature: 97.2 F Pulse Rate: 83 Blood Pressure: 119/75 Respiratory Rate: 16 Pulse Ox: 99 Assessment Airway patent: Yes Spontaneous unlabored respirations: Yes nausea: No Vomiting: No Anesthesia Complication: No Fluid Hydration Crystalloid volume administer (ml): 1,100 Total IV fluid infused: 1,100 Progress Note Anesthesia document: Postop Eval 1 completed: Yes
[2025-02-04] MEDS: Fluticasone 0.05% 1 SPRAY NASAL.SRY 2 SPRAY NASAL (11:19)
[2025-02-04] MEDS: 0.9% Normal Saline (1000mL) 1,000 ML 75 ML IV (11:19)
--- NOTE | 2025-02-04 12:47 | POSTOPAN2_ITS ---
Anesthesia Postop Eval I Sum Postop Eval Completion status Anesthesia document: Postop Eval 1 completed: Yes Anesthesia Postop Eval I Summary Anesthesia Postop Eval I Summary: Anesthesia Postop Eval I: Assessment Summary Airway patent Yes 02/04/25 09:12 OPTICAL MODEL MAKER AND [email or web address] Spontaneous unlabored Yes 02/04/25 09:12 OPTICAL MODEL MAKER AND [email or web address] respirations Mental status nausea No 02/04/25 09:12 OPTICAL MODEL MAKER AND [email or web address] Vomiting No 02/04/25 09:12 OPTICAL MODEL MAKER [email or web address] Anesthesia Postop Eval I: Fluid Summary Crystalloid volume administer 1,100 02/04/25 09:12 OPTICAL MODEL MAKER AND [email or web address].[email or web address] (ml) Colloids volume administered ( ml) Blood Product volume administered (ml) Total IV fluid infused 1,100 02/04/25 09:12 OPTICAL MODEL MAKER [email or web address] Anesthesia Postop Eval I: Summary Notes Anesthesia Complication No 02/04/25 09:12 OPTICAL MODEL MAKER AND [email or web address] Anesthesia Complication Comment: Post-operative progress note Anesthesia: Postop Eval II Evaluation Mental status: Awake Pain Level: 0 nausea: No Vomiting: No Complications Anesthesia Complication: No
--- NOTE | 2025-02-04 12:47 | PCM.POSTANE2 ---
Anesthesia Postop Eval I Sum Postop Eval Completion status Anesthesia document: Postop Eval 1 completed: Yes Anesthesia Postop Eval I Summary Anesthesia Postop Eval I Summary: Anesthesia Postop Eval I: Assessment Summary Airway patent Yes 02/04/25 09:12 SUPERVISOR [email or web address] Spontaneous unlabored Yes 02/04/25 09:12 SUPERVISOR [email or web address] [email or web address] respirations Mental status nausea No 02/04/25 09:12 SUPERVISOR [email or web address] [email or web address] Vomiting No 02/04/25 09:12 SUPERVISOR [email or web address] Anesthesia Postop Eval I: Fluid Summary Crystalloid volume administer 1,100 02/04/25 09:12 SUPERVISOR [email or web address] (ml) Colloids volume administered ( ml) Blood Product volume administered (ml) Total IV fluid infused 1,100 02/04/25 09:12 SUPERVISOR [email or web address] Anesthesia Postop Eval I: Summary Notes Anesthesia Complication No 02/04/25 09:12 SUPERVISOR [email or web address] Anesthesia Complication Comment: Post-operative progress note Anesthesia: Postop Eval II Evaluation Mental status: Awake Pain Level: 0 nausea: No Vomiting: No Complications Anesthesia Complication: No
[2025-02-04] MEDS: 0.9% Saline Lock 10 ML Syringe IV (21:40)
[2025-02-05] MEDS: 0.9% Normal Saline (1000mL) 1,000 ML 75 ML IV (00:40)
[2025-02-05 02:33] VITALS: BP 106/59; PULSE 72; RESP 16; TEMP 37; O2SAT 98
[2025-02-05 06:17] VITALS: BP 111/64; PULSE 67; RESP 16; TEMP 36.7; O2SAT 98
--- NOTE | 2025-02-05 07:29 | PCM.DC.SUM ---
Providers Date of Admission: 02/04/25 Date of Discharge: 02/05/25 Primary Care Physician: Dr. Vinny Mancilla MD Reason For Visit: Lap Robotic Partial Nephrectomy Medications at Discharge Home Medications calcium 600 mg (as carbonate)-vitamin D3 20 mcg (800 unit) tablet 1 tab PO BIDCM SUPPLEMENT 03/14/13 fluticasone propionate 50 mcg/actuation nasal spray,suspension 2 spray NASAL DAILY ALLERGIES 03/14/13 omeprazole 20 mg capsule,delayed release 20 mg PO DAILY GERD 03/14/13 montelukast 10 mg tablet 10 mg PO QHS ALLERGIES 09/23/14 cholecalciferol (vitamin D3) 50 mcg (2,000 unit) capsule 2,000 unit PO DAILY SUPPLEMENT 09/20/17 hydroxychloroquine 200 mg tablet 200 mg PO DAILY RA 05/24/23 lactobacillus combination no.9 4 billion cell capsule (Adult 50 Plus Probiotic) 4,000 mmu cells PO DAILY SUPPLEMENT 06/14/23 iron, carbonyl 18 mg iron chewable tablet 18 mg PO DAILY SUPPLEMENT 12/07/23 mecobalamin (vitamin B12) 1,000 mcg chewable tablet 1,000 mcg PO DAILY SUPPLEMENT 12/07/23 metoprolol tartrate 25 mg tablet 25 mg PO BID HEART #180 tabs 01/09/25 docusate sodium 100 mg capsule (Colace) 100 mg PO BID #20 caps 02/04/25 oxycodone 5 mg tablet 5 mg PO Q6H PRN pain 3 days #10 tabs 02/04/25 Hospital Course Operations - (Robotic left partial nephrectomy) Weight / BMI Weight Weight: 65 kg Body Mass Index (BMI) 23.1 ABG / Lab / Microbiology Data 01/09/25 11:57 01/09/25 11:57 D/C Instructions Return to work on: 02/25/25 May shower in (days): 1 Call your doctor if your incision/area has: Continuous Slow Oozing and Sudden Increased Bleeding Call your doctor if you observe: Fever of 101 or Higher, Inability to have a bowel movement and Uncontrolled pain Suture Line Care: Avoid Pulling/Pushing and Avoid Pinching/Bending DC O2, CPAP, BIPAP Needs Home O2 Discharge instructions: No Please Follow Up With: Garret Longoria MD When: Call [phone] for an appointment Meaningful Use Info Meaningful Use Meaningful Use Diagnoses (Choose all that apply): None applicable Discharge Plan Admission Admit Date/Time: 02/04/25 05:51 Primary Reason for Your Visit: renal tumor, left kidney removed Attending Provider: Garret Longoria Primary Care Provider: Vinny Mancilla Discharge Orders/Prescriptions Prescriptions: New oxycodone 5 mg tablet 5 mg PO Q6H PRN (Reason: pain) 3 Days Qty: 10 0RF docusate sodium [Colace] 100 mg capsule 100 mg PO BID Qty: 20 0RF Continued Adult 50 Plus Probiotic 4 billion cell capsule 4,000 mmu cells PO DAILY Rx Instructions: administer with a meal iron, carbonyl 18 mg iron tablet,chewable 18 mg PO DAILY mecobalamin (vitamin B12) 1,000 mcg tablet,chewable 1,000 mcg PO DAILY metoprolol tartrate 25 mg tablet 25 mg PO BID Qty: 180 3RF omeprazole 20 MG capsule 20 mg PO DAILY fluticasone propionate 1 SPRAY spray,suspension 2 spray NASAL DAILY calcium carbonate-vitamin D3 1 TAB tablet 1 tab PO BIDCM montelukast 10 MG tablet 10 mg PO QHS cholecalciferol (vitamin D3) 2,000 UNIT capsule 2,000 unit PO DAILY hydroxychloroquine 200 mg tablet 200 mg PO DAILY Referrals / Follow Up: Vinny Mancilla MD [Primary Care Provider] - Garret Longoria MD [Med Staff - Active Staff] - Disposition Disposition (needs filled in before D/C Order can be placed): Home, Self Care
[2025-02-05 08:13] VITALS: BP 105/60; PULSE 72; RESP 16; TEMP 36.9; O2SAT 98
[2025-02-05 08:18] VITALS: PULSE 72
[2025-02-05] MEDS: Fluticasone 0.05% 1 SPRAY NASAL.SRY 2 SPRAY NASAL (08:18)
--- NOTE | 2025-02-05 08:54 | CASEMGMT ---
Dx:lap robotic partial nephrectomy LACE:2 6-Clicks:21 Medical record reviewed and patient evaluated for identification of discharge planning needs. Based on this review, at this time criteria are not present to indicate a need for discharge planning. Will remain available to assist with discharge planning needs as identified or requested. Pt has dc order placed.
== END 2025-02-05 11:06 | disposition home or self-care (01) | DRG 658 ==
LOC: ACINP 08:50 → MS3 02-05 07:56
PROVIDERS: Admitting Provider Urology; PCP Family Medicine; Referring Provider Urology; Visit Provider Urology
PROC: 0TB14ZZ Excision of Left Kidney, Percutaneous Endoscopic Approach (ICD-10-PCS; CPT 50543; principal; 2025-02-04 07:10)
DX: D41.02 Neoplasm of uncertain behavior of left kidney (principal); Z87.442 Personal history of urinary calculi; Z90.49 Acquired absence of other specified parts of digestive tract; Z90.5 Acquired absence of kidney; Z92.21 Personal history of antineoplastic chemotherapy; Z98.51 Tubal ligation status
CPT/HCPCS: 36415; 80048; 85027; 88305; 88307; 88341; 88342; 94668; A4216; J2405